=== PATIENT | male | born 1945 | race African-American/Black ===

== ENCOUNTER 2016-09-26 20:17 | Emergency (ER) | payer BC, MEDICARE ==
[2016-09-25] MEDS: HYDROCODONE/ACETAMINOPHEN 5-325 MG 6 TAB/DSPK PO PRN (23:11)
[2016-09-26] MEDS ORDERED: HYDROCODONE/ACETAMINOPHEN 5-325 MG TABLET PO ONE (20:51)
--- NOTE | 2016-09-26 20:52 | ER Document Report ---
ED Extremity Problem, Lower - General Stated Complaint: LEFT LEG PAIN Time seen by provider: 20:51 Notes: Patient is a 71-year-old male that comes emergency department for chief complaint of pain in his left lower leg with a small area of swelling. He states that symptoms started today. Patient is not sure that he has had any injury to the leg, he denies any recent travel or surgery, he states he has had superficial blood clots in his legs before but no deep venous thrombosis. He takes aspirin but is not on any blood thinners. Patient denies any other symptoms. TRAVEL OUTSIDE OF THE [place] IN LAST 30 DAYS: No - Related Data Allergies/Adverse Reactions: No Known Allergies Allergy (Verified 04/27/14 21:43) Past Medical History - General Information source: Patient - Social History Smoking Status: Never Smoker Frequency of alcohol use: None Drug Abuse: None Lives with: Family Family History: Reviewed & Not Pertinent - Past Medical History Cardiac Medical History: Reports: Hx Hypertension Denies: Hx Coronary Artery Disease, Hx Heart Attack Pulmonary Medical History: Denies: Hx Asthma, Hx Bronchitis, Hx COPD, Hx Pneumonia Neurological Medical History: Denies: Hx Cerebrovascular Accident, Hx Seizures Musculoskeltal Medical History: Denies Hx Arthritis Psychiatric Medical History: Denies: Hx Depression Surgical Hx: Negative - Immunizations Hx Diphtheria, Pertussis, Tetanus Vaccination: Yes Hx Pneumococcal Vaccination: 06/13/14 Review of Systems - Review of Systems Constitutional: No symptoms reported EENT: No symptoms reported Cardiovascular: See HPI Respiratory: No symptoms reported Gastrointestinal: No symptoms reported Genitourinary: No symptoms reported Male Genitourinary: No symptoms reported Musculoskeletal: See HPI Skin: No symptoms reported Hematologic/Lymphatic: No symptoms reported Neurological/Psychological: No symptoms reported Physical Exam - Vital signs Vitals: Temp Pulse Resp BP Pulse Ox 98.1 F 68 21 H 125/72 97 09/26/16 20:38 09/26/16 20:38 09/26/16 20:38 09/26/16 20:38 09/26/16 20:38 Interpretation: Normal - General General appearance: Appears well, Alert In distress: None - HEENT Head: Normocephalic, Atraumatic Eyes: Normal Conjunctiva: Normal Extraocular movements intact: Yes Eyelashes: Normal Pupils: PERRL Sinus: Normal Nasal: Normal Mouth/Lips: Normal Mucous membranes: Normal Pharynx: Normal Neck: Normal - Respiratory Respiratory status: No respiratory distress Chest status: Nontender Breath sounds: Normal. No: Decreased air movement, Wheezing Chest palpation: Normal - Cardiovascular Rhythm: Regular. No: Tachycardia Heart sounds: Normal auscultation, S1 appreciated, S2 appreciated Murmur: No - Abdominal Inspection: Normal Distension: No distension Bowel sounds: Normal Tenderness: Nontender. No: Tender Organomegaly: No organomegaly - Back Back: Normal, Nontender - Extremities General upper extremity: Normal inspection, Nontender, Normal color, Normal ROM , Normal temperature General lower extremity: Other - There is a small amount of edema in the left lower extremity, most noticeable anteriorly over the distal tibial area, no significant tenderness, no abnormal temperature, no erythema, normal dorsalis pedis and capillary refill, normal neurovascular exam, normal lower extremity exam otherwise - Neurological Neuro grossly intact: Yes Cognition: Normal Orientation: AAOx4 [place] Coma Scale Eye Opening: Spontaneous Nicole Coma Scale Verbal: Oriented Nicole Coma Scale Motor: Obeys Commands Nicole Coma Scale Total: 15 Speech: Normal Motor strength normal: LUE, RUE, LLE, RLE Sensory: Normal - Psychological Associated symptoms: Normal affect, Normal mood - Skin Skin Temperature: Warm Skin Moisture: Dry Skin Color: Normal Course - Re-evaluation Re-evalutation: Patient has minimal lower extremity edema in the left anterior tibial area, otherwise it is not noticeable, patient reporting pain initially, this resolved with medication. X-ray imaging unremarkable, Doppler unremarkable, suspect this is venous stasis. Patient has normal pulse, normal neurological examination. Patient already has compression stockings. Discussed workup, follow-up, return precautions, patient and state understanding and agreement. - Vital Signs Vital signs: Temp Pulse Resp BP Pulse Ox 98.3 F 65 20 139/83 H 98 09/26/16 23:00 09/26/16 23:00 09/26/16 23:00 09/26/16 23:00 09/26/16 23:00 Discharge - Discharge Clinical Impression: Left leg pain Condition: Stable Disposition: HOME, SELF-CARE Additional Instructions: Doppler ultrasound is negative for superficial or deep clots. X-ray is unremarkable. Small amount of swelling in your leg is most likely from venous insufficiency, wear your compression stocking and elevate your leg. Take the provided pain medication if needed. Follow-up with your primary care provider within the next 1-2 weeks. Return to the emergency department for any concerning or worsening symptoms. Referrals: SADIE MCCRAY MD [Primary Care Provider] - Follow up as needed
[2016-09-26 23:01] VITALS: BP 139/83
[2016-09-26] MEDS: HYDROCODONE/ACETAMINOPHEN 5-325 MG 6 TAB/DSPK PO PRN (23:11)
== END 2016-09-26 23:12 | disposition home or self-care (01) ==
LOC: ER 20:17
DX: M79.605 Pain in left leg (principal); I10 Essential (primary) hypertension
CPT/HCPCS: 99284; 93971; 73590; A9270 ×2

== ENCOUNTER 2016-12-05 13:39 | Emergency (ER) | payer MEDICARE, BC ==
[2016-12-05] MEDS ORDERED: NORMAL SALINE 1000 ML 1,000 ML IV ONE (14:56)
--- NOTE | 2016-12-05 15:18 | ER Document Report ---
ED Syncope and Near Syncope - General Mode of Arrival: Medic Information source: Patient TRAVEL OUTSIDE OF THE [place] IN LAST 30 DAYS: No - HPI Patient complains to provider of: Nearly fainting Context: Other - See above <CHIP FISHER - Last Filed: 12/05/16 17:17> <RUDDY ARZATE - Last Filed: 12/05/16 22:53> - General Chief Complaint: Near Syncope Stated Complaint: near syncope Time Seen by Provider: 12/05/16 14:51 Notes: Patient is a 71 year old male, with a past medical history including hypertension, who presents to the emergency department via EMS complaining of near syncope. Patient reports that he was leaving [facility] when he became very hot , nauseated, and felt like he was going to pass out. Patient reports he feels alright now. Patient states that the [facility] was warm and that he has not had anything to eat today. Patient denies chest pain, difficulty breathing, and abdominal pain. PCP: Dr. Mccray (CHIP FISHER) - Related Data Allergies/Adverse Reactions: No Known Allergies Allergy (Verified 04/27/14 21:43) Past Medical History - General Information source: Patient - Social History Smoking Status: Unknown if Ever Smoked Family History: Reviewed & Not Pertinent - Past Medical History Cardiac Medical History: Reports: Hx Hypertension - Immunizations Hx Diphtheria, Pertussis, Tetanus Vaccination: Yes Hx Pneumococcal Vaccination: 06/13/14 <CHIP FISHER - Last Filed: 12/05/16 17:17> Review of Systems - Review of Systems Constitutional: See HPI, Other - hot EENT: No symptoms reported Cardiovascular: See HPI, Syncope - near. denies: Chest pain Respiratory: denies: Stridor - difficulty breathing Gastrointestinal: See HPI, Nausea. denies: Abdominal pain Genitourinary: No symptoms reported Male Genitourinary: No symptoms reported Musculoskeletal: No symptoms reported Skin: No symptoms reported Hematologic/Lymphatic: No symptoms reported Neurological/Psychological: No symptoms reported -: Yes All other systems reviewed and negative <CHIP FISHER - Last Filed: 12/05/16 17:17> Physical Exam - Vital signs Interpretation: Normal - General General appearance: Appears well, Alert - HEENT Head: Normocephalic, Atraumatic Eyes: Normal Pupils: PERRL Mucous membranes: Dry - Respiratory Respiratory status: No respiratory distress Chest status: Nontender Breath sounds: Normal Chest palpation: Normal - Cardiovascular Rhythm: Regular Heart sounds: Normal auscultation Murmur: No - Abdominal Inspection: Normal Distension: No distension Bowel sounds: Normal Tenderness: Nontender Organomegaly: No organomegaly - Back Back: Normal, Nontender - Extremities General upper extremity: Normal inspection, Nontender, Normal color, Normal ROM , Normal temperature General lower extremity: Normal inspection, Nontender, Normal color, Normal ROM , Normal temperature, Normal weight bearing. No: Mamta's sign - Neurological Neuro grossly intact: Yes Cognition: Normal Orientation: AAOx4 Nicole Coma Scale Eye Opening: Spontaneous Nicole Coma Scale Verbal: Oriented [place] Coma Scale Motor: Obeys Commands Nicole Coma Scale Total: 15 Speech: Normal Motor strength normal: LUE, RUE, LLE, RLE Sensory: Normal - Psychological Associated symptoms: Normal affect, Normal mood - Skin Skin Temperature: Warm Skin Moisture: Dry Skin Color: Normal <RUDDY ARZATE - Last Filed: 12/05/16 22:53> - Vital signs Vitals: Resp Pulse Ox 14 94 12/05/16 15:52 12/05/16 15:52 Course - Laboratory Result Diagrams: 12/05/16 16:02 12/05/16 16:02 <CHIP FISHER - Last Filed: 12/05/16 17:17> - Laboratory Result Diagrams: 12/05/16 16:02 12/05/16 16:02 - Diagnostic Test Radiology reviewed: Reports reviewed - EKG Interpretation by Me EKG shows normal: Sinus rhythm When compared to previous EKG there are: No significant change <RUDDY ARZATE - Last Filed: 12/05/16 22:53> - Re-evaluation Re-evalutation: 12/05/16 Patient presents after an episode of syncope at [facility]. Patient had been standing for a while. States that he has not eaten or drank anything today. Patient is a little hypoglycemic on blood work. Patient given fluids and something to eat and feels much better. Troponin negative. No acute changes on EKG. Similar to old. Patient will be discharged home is to follow-up with his doctor. He is not orthostatic. Agrees with plan. Return if any worsening or concerning symptoms. (RUDDY ARZATE) - Vital Signs Vital signs: Temp Pulse Resp BP Pulse Ox 97.6 F 62 14 119/73 98 12/05/16 18:03 12/05/16 17:44 12/05/16 18:01 12/05/16 18:01 12/05/16 18:01 - Laboratory Laboratory results interpreted by me: 12/05/16 12/05/16 12/05/16 16:02 16:02 16:02 RBC 4.14 L Hgb 12.3 L Hct 37.1 L RDW 15.4 H VBG pH 7.29 L Sodium 146.4 H BUN 27 H Creatinine 1.53 H Est GFR ( Amer) 55 L Est GFR (Non-Af Amer) 45 L Calcium 11.2 H Total Bilirubin 1.4 H Urine Protein Urine Blood 12/05/16 16:02 RBC Hgb Hct RDW VBG pH Sodium BUN Creatinine Est GFR ( Amer) Est GFR (Non-Af Amer) Calcium Total Bilirubin Urine Protein 30 H Urine Blood SMALL H Discharge <CHIP FISHER - Last Filed: 12/05/16 17:17> <RUDDY ARZATE - Last Filed: 12/05/16 22:53> - Discharge Clinical Impression: Near syncope, Hypoglycemia, Dehydration Condition: Stable Disposition: HOME, SELF-CARE Instructions: Dehydration ([facility]), Near Syncopal Episode ([facility]), Hypoglycemia ([facility] ) Referrals: SADIE MCCRAY MD [Primary Care Provider] - 12/07/16 Scribe Attestation: 12/05/16 22:53 I personally performed the services described in the documentation, reviewed and edited the documentation which was dictated to the scribe in my presence, and it accurately records my words and actions. (RUDDY ARZATE) Scribe Documentation - Scribe Written by Carter:: carter Garcia, 12/05/16, 2975 acting as scribe for :: Harry <CHIP FISHER - Last Filed: 12/05/16 17:17>
[2016-12-05 16:32] LABS: ABSOLUTE BASOPHILS # (AUTO) 0.1 10^3/uL (0.0-0.2); ABSOLUTE EOSINOPHILS # (AUTO) 0.1 10^3/uL (0.0-0.6); ABSOLUTE LYMPHOCYTES (AUTO) 1.4 10^3/uL (0.5-4.7); ABSOLUTE MONOCYTES (AUTO) 0.5 10^3/uL (0.1-1.4); ABSOLUTE NEUT (AUTO) 4.9 10^3/uL (1.7-8.2); BASOPHILS % (AUTO) 0.8 % (0-2); EOSINOPHILS % (AUTO) 1.2 % (0-6); HEMATOCRIT 37.1 % (37.9-51.0); HEMOGLOBIN 12.3 g/dL (13.5-17.0); HGB HCT DIFFERENCE -0.2; LYMPHOCYTES % (AUTO) 20.7 % (13-45); MEAN CORPUSCULAR HEMOGLOBIN 29.8 pg (27.0-33.4); MEAN CORPUSCULAR HGB CONC 33.3 g/dL (32.0-36.0); MEAN CORPUSCULAR VOLUME 90 fl (80-97); MONOCYTES % (AUTO) 7.8 % (3-13); RED BLOOD COUNT 4.14 10^6/uL (4.35-5.55); RED CELL DISTRIBUTION WIDTH 15.4 % (11.5-14.0); SEGMENTED NEUTROPHILS % (AUTO) 69.5 % (42-78)
[2016-12-05 16:33] LABS: VENOUS BLOOD BASE EXCESS -2.1 mmol/L; VENOUS BLOOD HCO3 25.3 mmol/L (20-32); VENOUS BLOOD PCO2 54.4 mmHg (35-63); VENOUS BLOOD PH 7.29 (7.30-7.42)
[2016-12-05 16:39] LABS: PROTHROMBIN TIME 13.7 SEC (11.4-15.4)
[2016-12-05 16:49] LABS: ALANINE AMINOTRANSFERASE 33 U/L (21-72); ALBUMIN 4.1 g/dL (3.5-5.0); ALKALINE PHOSPHATASE 108 U/L (38-126); ANION GAP 15 (5-19); APPEARANCE,URINE CLEAR; ASPARTATE AMINO TRANSFERASE 25 U/L (17-59); BILIRUBIN,DIRECT 0.3 mg/dL (0.0-0.4); BILIRUBIN,TOTAL 1.4 mg/dL (0.2-1.3); BILIRUBIN,URINE NEGATIVE (NEGATIVE); BLOOD UREA NITROGEN 27 mg/dL (7-20); CALCIUM 11.2 mg/dL (8.4-10.2); CARBON DIOXIDE 25 mmol/L (22-30); CHLORIDE 106 mmol/L (98-107); CREATINE KINASE 160 U/L (55-170); CREATININE RESULT 1.53 mg/dL (0.52-1.25); GLUCOSE 94 mg/dL (75-110); GLUCOSE, URINE NEGATIVE (NEGATIVE); KETONES,URINE NEGATIVE (NEGATIVE); LEUKOCYTE ESTERASE,URINE NEGATIVE (NEGATIVE); NITRITE,URINE NEGATIVE (NEGATIVE); POTASSIUM 4.1 mmol/L (3.6-5.0); PROTEIN,URINE 30 mg/dL (NEGATIVE); SODIUM 146.4 mmol/L (137-145); TOTAL PROTEIN 7.1 g/dL (6.3-8.2); URINE SPECIFIC GRAVITY 1.012; UROBILINOGEN,URINE NEGATIVE mg/dL (<2.0)
[2016-12-05 16:58] LABS: CREATINE KINASE MB 0.76 ng/mL (<4.55)
[2016-12-05 16:59] LABS: TROPONIN I < 0.012 ng/mL
--- NOTE | 2016-12-05 17:14 | EKG REPORT ---
SEVERITY:- ABNORMAL ECG - SINUS RHYTHM RBBB AND LAFB : Confirmed by: Serafin Araujo MD 05-Dec-2016 17:13:55
[2016-12-05 18:04] VITALS: BP 119/73
== END 2016-12-05 18:09 | disposition home or self-care (01) ==
LOC: ER 13:39
DX: R55 Syncope and collapse (principal); E86.0 Dehydration; E16.2 Hypoglycemia, unspecified; R11.0 Nausea; I10 Essential (primary) hypertension
CPT/HCPCS: 93005; 99285; 96360; 36415; 87040; 87086; 82553; 82962; 82550; 85025; 85610; 80053; 81001; 84484; 82803; 83605; 71010; 93010; J7030

== ENCOUNTER → 2017-03-30 | Outpatient (CLI) | payer MEDICARE, BC ==
--- NOTE | 2017-03-30 23:01 | RADIOLOGY REPORT (SQ) ---
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 Images reviewed with lung, soft tissue and bone windows. Reconstructed coronal and sagittal MPR images reviewed. All images st ored on PACS. All CT scanners at this facility use dose modulation, iterative reconstruction, and/or weight based d osing when appropriate to reduce radiation dose to as low as reasonably achievable (ALARA). [facility]: Dose Right [facility]: CareDose [facility]: Dose Right [facility]: Teradose 4D [facility]: Smart [employer] RADIATION DOSE: Up-to-date CT equipment and radiation dose reduction techniques were employed. CTDIv ol: 17.5 mGy. DLP: 685 mGy-cm. mGy. LIMITATIONS: No technical limitations. FINDINGS: LUNGS AND PLEURA: Postsurgical changes in the right lung. Previously noted pulmonary nodu le no longer identified. No additional nodules or masses. HILAR AND MEDIASTINAL STRUCTURES: Surgical changes in the right hilum and mediastinum. No definite e vidence for recurrence. HEART AND VASCULAR STRUCTURES: No aneurysm. No pericardial effusion. UPPER ABDOMEN: Renal cysts. THYROID AND OTHER SOFT TISSUES: No masses. No adenopathy. BONES: No significant finding. HARDWARE: None in the chest. OTHER: No other significant findings. IMPRESSION: Posttreatment changes in the right lung with surgical changes. No evidence for metastat ic lesions. TECHNICAL DOCUMENTATION: JOB ID: [id number] Quality ID # [id number]: Final reports with documentation of one or more dose reduction techniques (e.g., Au tomated exposure control, adjustment of the mA and/or kV according to patient size, use of iterative reconstruction technique) 2010 [employer]- All Rights Reserved
== END ==
LOC: RAD 18:43
PROVIDERS: ATTEND Internal Medicine
DX: C34.11 Malignant neoplasm of upper lobe, right bronchus or lung (principal)
CPT/HCPCS: 71250

== ENCOUNTER → 2017-07-01 | Outpatient (CLI) | payer MEDICARE, BC ==
--- NOTE | 2017-07-01 18:34 | RADIOLOGY REPORT (SQ) ---
EXAM DESCRIPTION: CT CHEST WITHOUT COMPLETED DATE/TIME: 07/01/2017 6:15 pm REASON FOR STUDY: MALIGNANT NEOPLASM OF UPPER LOBE, RIGHT BRONCHUS OR LUNG C34.11 MALIGNANT NEOPLAS M OF UPPER LOBE, RIGHT BRONCHUS OR L COMPARISON: 03/30/2017 TECHNIQUE: CT scan performed of the chest without intravenous contrast. Images reviewed with lung, soft tissue and bone windows. Reconstructed coronal and sagittal MPR images reviewed. All images st ored on PACS. All CT scanners at this facility use dose modulation, iterative reconstruction, and/or weight based d osing when appropriate to reduce radiation dose to as low as reasonably achievable (ALARA). [facility]: Dose Right [facility]: CareDose [facility]: Dose Right [facility]: Teradose 4D [facility]: [employer] RADIATION DOSE: Up-to-date CT equipment and radiation dose reduction techniques were employed. CTDIv ol: 19.1 mGy. DLP: 748 mGy-cm. mGy. LIMITATIONS: No technical limitations. FINDINGS: LUNGS AND PLEURA: Post surgical changes in the right lung. No pulmonary masses or infiltr ates. HILAR AND MEDIASTINAL STRUCTURES: Surgical changes in the right hilum. HEART AND VASCULAR STRUCTURES: No aneurysm. No pericardial effusion. UPPER ABDOMEN: There are bilateral renal cysts including a 95 mm cyst on the upper pole of the right kidney. THYROID AND OTHER SOFT TISSUES: No masses. No adenopathy. BONES: No osseous lesions are present. HARDWARE: None in the chest. OTHER: No other significant findings. IMPRESSION: Stable surgical changes with no evidence of pulmonary or osseous metastases. TECHNICAL DOCUMENTATION: JOB ID: [id number] Quality ID # [id number]: Final reports with documentation of one or more dose reduction techniques (e.g., Au tomated exposure control, adjustment of the mA and/or kV according to patient size, use of iterative reconstruction technique) 2010 [employer]- All Rights Reserved
== END ==
LOC: RAD 17:58
PROVIDERS: ATTEND Internal Medicine Hematology & Oncology
DX: C34.11 Malignant neoplasm of upper lobe, right bronchus or lung (principal)
CPT/HCPCS: 71250

== ENCOUNTER → 2017-11-15 | Outpatient (CLI) | payer MEDICARE, BC ==
--- NOTE | 2017-11-15 22:36 | RADIOLOGY REPORT (SQ) ---
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 Images reviewed with lung, soft tissue and bone windows. Reconstructed coronal and sagittal MPR images reviewed. All images st ored on PACS. All CT scanners at this facility use dose modulation, iterative reconstruction, and/or weight based d osing when appropriate to reduce radiation dose to as low as reasonably achievable (ALARA). [facility]: Dose Right [facility]: CareDose [facility]: Dose Right [facility]: Teradose 4D [facility]: [employer] RADIATION DOSE: CT Rad equipment meets quality standard of care and radiation dose reduction techniq ues were employed. CTDIvol: 18.1 mGy. DLP: 707 mGy-cm. mGy. LIMITATIONS: No technical limitations. FINDINGS: LUNGS AND PLEURA: Surgical changes are present in the right upper lobe. There are new pul monary nodules in the right lung not present on the earlier study. There is an 8 mm nodule in the ri ght lung on image 21. A similar size nodule is seen just anterior to the fissure on the right on suzette ge 23. On image 26 multiple smaller pulmonary nodules are present. HILAR AND MEDIASTINAL STRUCTURES: No identified masses or abnormal nodes. No obvious aneurysm. HEART AND VASCULAR STRUCTURES: No aneurysm. No pericardial effusion. UPPER ABDOMEN: Faintly defined gallstones are suggested. A large right renal cyst is present. THYROID AND OTHER SOFT TISSUES: No masses. No adenopathy. BONES: No significant finding. HARDWARE: None in the chest. OTHER: No other significant findings. IMPRESSION: There are new pulmonary nodules in the right lung concerning for metastatic disease. Ot her findings as described. TECHNICAL DOCUMENTATION: JOB ID: [id number] Quality ID # [id number]: Final reports with documentation of one or more dose reduction techniques (e.g., Au tomated exposure control, adjustment of the mA and/or kV according to patient size, use of iterative reconstruction technique) 2010 [employer]- All Rights Reserved Reading location - IP/workstation name: [email or web address]
== END ==
LOC: RAD 19:00
PROVIDERS: ATTEND Internal Medicine
DX: C34.11 Malignant neoplasm of upper lobe, right bronchus or lung (principal)
CPT/HCPCS: 71250

== ENCOUNTER → 2017-11-23 | Outpatient (CLI) | payer MEDICARE, BC ==
--- NOTE | 2017-11-24 09:41 | RADIOLOGY REPORT (SQ) ---
EXAM DESCRIPTION: PET CT SKULL/THIGH COMPLETED DATE/TIME: 11/23/2017 6:51 pm REASON FOR STUDY: LUNG CA C34.11 MALIGNANT NEOPLASM OF UPPER LOBE, RIGHT BRONCHUS OR L COMPARISON: PET-CT 06/28/2016 CT chest 03/30/2017, 07/01/2017, 11/25/2017 RADIONUCLIDE AND DOSE: 12.6 mCi F18 FDG The route of agent administration: Intravenous FASTING BLOOD SUGAR: 87 mg/dl CONTRAST TYPE AND DOSE: No CT contrast given. TECHNIQUE: Blood glucose level was verified. Above dose of FDG was injected intravenously. 2-D seg mented attenuation correction images were obtained from the base of the skull to the midthighs. Nonc ontrast CT images were obtained for attenuation correction and fusion with emission images. CT image s were performed without oral or intravenous contrast and are not sensitive for parenchymal lesions. A series of overlapping emission PET images were obtained. Images reviewed and manipulated at [facility] work station by the radiologist. Images stored on PACS. LIMITATIONS: None. FINDINGS: HEAD AND NECK: No areas of abnormal metabolic activity in the soft tissues of the head and neck. CHEST: Patient is post right upper lobectomy. Along the right hilar staple line, a bandlike area of soft tissue is present 3.3 x 1.4 cm in size with SUV of 4. This is worrisome for recurrence. There are multiple bilateral pulmonary nodules, stable compared to 11/15/[address] However, the e xhibit low level activity on today's PET study worrisome for metastatic nodules. Shot Polisher And Inspector lesi ons are as follows: 8 mm right middle lobe image 87 SUV 1.8 8 mm right lower lobe image 96 SUV 2.1 ABDOMEN AND PELVIS: No areas of abnormal metabolic activity in the abdomen or pelvis. Expected physi ologic activity is present in the genitourinary system and bowel. PROXIMAL LOWER EXTREMITIES: No areas of abnormal metabolic activity in the soft tissues of the lower extremities. BONES: No abnormal metabolic activity in the visualized skeleton. ADDITIONAL CT FINDINGS: Small hiatal hernia. Bilateral renal cortical cysts. Degenerative disc schwartz ges in the lumbar spine, penile prosthesis. Mucous membrane thickening right maxillary sinus OTHER: Liver background 2.4 SUV. Blood pool background 1.8 SUV IMPRESSION: There is increased metabolic activity along the right hilum, posterior edge of the upper lobectomy staple line with corresponding soft tissue densities 3.3 x 1.4 cm worrisome for tumor recu rrence. Although the multiple pulmonary nodules are stable compared to 11/15/[address], these nodules have discernible metabolic activity despite being less than 1 cm in size, which is suspicious for metastat ic disease TECHNICAL DOCUMENTATION: JOB ID: [id number] [employer]- All Rights Reserved Reading location - IP/workstation name: [email or web address]
== END ==
LOC: RAD 15:46
PROVIDERS: ATTEND Internal Medicine
DX: C34.11 Malignant neoplasm of upper lobe, right bronchus or lung (principal)
CPT/HCPCS: 78815; A9552

== ENCOUNTER → 2018-02-16 | Outpatient (CLI) | payer MEDICARE, BC ==
--- NOTE | 2018-02-16 13:56 | RADIOLOGY REPORT (SQ) ---
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 [address] chest study from 11/15/2017 and 07/01/2017. CONTRAST TYPE AND DOSE: contrast/concentration: Isovue 300.00 mg/ml; Total Contrast Delivered: 75.0 ml; Total Saline Delivered: 72.0 ml RENAL FUNCTION: Creatinine 1.7 TECHNIQUE: CT scan of the chest performed using helical scanning technique with dynamic intravenous contrast injection. Images reviewed with lung, soft tissue and bone windows. Reconstructed coronal a nd sagittal MPR images reviewed. All images stored on PACS. CT scan of the abdomen and pelvis performed with intravenous and with oral contrastusing helical scan eran technique with dynamic intravenous contrast injection. Images reviewed with lung, soft tissue a nd bone windows. Reconstructed coronal and sagittal MPR images reviewed. Delayed images for evaluat ion of the urinary system also acquired and evaluated. All images stored on PACS. All CT scanners at this facility use dose modulation, iterative reconstruction, and/or weight based d osing when appropriate to reduce radiation dose to as low as reasonably achievable (ALARA). [facility]: Dose Right [facility]: CareDose [facility]: Dose Right [facility]: Teradose 4D [facility]: [employer] RADIATION DOSE: CT Rad equipment meets quality standard of care and radiation dose reduction techniq ues were employed. CTDIvol: 12.2 - 12.9 mGy. DLP: 1904 mGy-cm. . LIMITATIONS: None. FINDINGS: CHEST: LUNGS AND PLEURA: Numerous bilateral pulmonary nodules are generally progressive in size. Largest le ft lesion is in the lower lobe and measures up to 1.4 cm transverse dimension (image 85). Largest di screte right lung nodule is in the right lower lobe and measures up to 1.4 cm transverse dimension (i mage 53). More extensive soft tissue along the suture line in the right upper lung field tracks back to the hilum. This soft tissue is enlarging and greater than 5 cm maximal AP dimension now. HILAR AND MEDIASTINAL STRUCTURES: Progressing right hilar and adjacent abnormal tissue as above. No left hilar adenopathy. No enlarged mediastinal nodes otherwise demonstrated. HEART AND VASCULAR STRUCTURES: No aneurysm or dissection. No central pulmonary emboli. No pericardi al effusion. HARDWARE: None. THYROID AND OTHER SOFT TISSUES: No masses. No adenopathy. BONES: No significant finding. OTHER: No other significant finding. ABDOMEN AND PELVIS: LIVER: Normal size. No masses. No dilated ducts. SPLEEN: Normal size. No focal lesions. PANCREAS: No masses. No significant calcifications. No adjacent inflammation or peripancreatic fluid collections. Pancreatic duct not dilated. GALLBLADDER: No identified stones by CT criteria. No inflammatory changes to suggest cholecystitis. ADRENAL GLANDS: No significant masses or asymmetry. RIGHT KIDNEY AND URETER: Numerous cysts. No gross solid mass, stones or obstruction. LEFT KIDNEY AND URETER: Numerous cysts. No solid mass, stones or obstruction. AORTA AND VESSELS: Atherosclerotic aorta without aneurysm. Patent renal and mesenteric arteries. No venous clot. RETROPERITONEUM: No retroperitoneal adenopathy, hemorrhage or masses. BOWEL AND PERITONEAL CAVITY: No masses or inflammatory changes. No free fluid or peritoneal masses. APPENDIX: Normal. ABDOMINAL WALL: No masses. No hernias. PELVIS: Prostate enlargement. Bladder unremarkable. No ascites or adenopathy. BONES: No significant or acute findings. OTHER: No other significant finding. IMPRESSION: 1. Progressive pulmonary disease. This includes confluent right upper lobe and hilar a bnormal soft tissue and numerous progressing bilateral pulmonary nodules. 2. Stable abdomen pelvis, no metastatic changes identified. Includes numerous renal cysts bilaterally as well as heavy athero sclerosis. TECHNICAL DOCUMENTATION: JOB ID: [id number] Quality ID # [id number]: Final reports with documentation of one or more dose reduction techniques (e.g., Au tomated exposure control, adjustment of the mA and/or kV according to patient size, use of iterative reconstruction technique) 2010 [employer]- All Rights Reserved Reading location - IP/workstation name: [email or web address]
== END ==
LOC: RAD 10:43
PROVIDERS: ATTEND Internal Medicine Hematology & Oncology
DX: C34.11 Malignant neoplasm of upper lobe, right bronchus or lung (principal)
CPT/HCPCS: 71260; 74177

== ENCOUNTER 2018-02-22 21:53 | Emergency (ER) | payer MEDICARE, BC ==
--- NOTE | 2018-02-23 00:13 | ER Document Report ---
HPI - HPI Patient complains to provider of: left leg/ankle pain Pain Level: 4 Context: Patient is a 72-year-old male comes emergency department for chief complaint of pain to his left ankle and left leg. He states the pain shot up from his left ankle into his left leg but not quite to his knee. He reports symptoms are bad and he felt like he could not walk on the leg although now they have essentially resolved. He denies injury, swelling, redness, fever. He states he got the same symptoms yesterday. He does have a history of lung cancer, he is going to be starting treatment with oncology soon, he does not have history of blood clots. - CONSTITUTIONAL Constitutional: DENIES: Fever, Chills - EENT EENT: DENIES: Sore Throat, Ear Pain, Eye problems - NEURO Neurology: DENIES: Headache, Weakness, Vision blurred, Dizzinesss / Vertigo - CARDIOVASCULAR Cardiovascular: DENIES: Chest pain - RESPIRATORY Respiratory: DENIES: Trouble Breathing, Coughing - GASTROINTESTINAL Gastrointestinal: DENIES: Abdominal Pain, Black / Bloody Stools - URINARY Urinary: DENIES: Dysuria, Urgency, Frequency - MUSCULOSKELETAL Musculoskeletal: REPORTS: Extremity pain - L ankle Past Medical History - General Information source: Patient - Social History Smoking Status: Never Smoker Frequency of alcohol use: None Drug Abuse: None Lives with: Family Family History: Reviewed & Not Pertinent Patient has suicidal ideation: No Patient has homicidal ideation: No - Past Medical History Cardiac Medical History: Reports: Hx Hypertension Denies: Hx Coronary Artery Disease, Hx Heart Attack Pulmonary Medical History: Denies: Hx Asthma, Hx Bronchitis, Hx COPD, Hx Pneumonia Neurological Medical History: Denies: Hx Cerebrovascular Accident, Hx Seizures Renal/ Medical History: Denies: Hx Peritoneal Dialysis Malignancy Medical History: Reports Hx Lung Cancer Musculoskeltal Medical History: Denies Hx Arthritis Psychiatric Medical History: Denies: Hx Depression - Immunizations Hx Diphtheria, Pertussis, Tetanus Vaccination: Yes Hx Pneumococcal Vaccination: 06/13/14 Vertical Provider Document - CONSTITUTIONAL General Appearance: WD/WN, No Apparent Distress - INFECTION CONTROL TRAVEL OUTSIDE OF THE [place] IN LAST 30 DAYS: No - HEENT HEENT: Atraumatic, Normocephalic - NECK Neck: Normal Inspection - RESPIRATORY Respiratory: Breath Sounds Normal, No Respiratory Distress - CARDIOVASCULAR Cardiovascular: Regular Rate, Regular Rhythm - GI/ABDOMEN Gastrointestinal: Abdomen Soft, Abdomen Non-Tender - BACK Back: Normal Inspection - MUSCULOSKELETAL/EXTREMETIES Musculoskeletal/Extremeties: MAEW, FROM, Non-Tender. negative: Tender - NEURO Level of Consciousness: Awake, Alert, Appropriate - DERM Integumentary: Warm, Dry, No Rash Course - Re-evaluation Re-evalutation: Patient is asymptomatic except he has some tenderness when he walks he reports. He was able to ambulate for me without any difficulty. X-rays unremarkable with no bony metastases noted, no swelling, no erythema, no fever, does not appear to be infection, examination is not suggestive of a blood clot even though he does have lung cancer. I discussed with patient possibly checking his electrolytes and additional workup options, this was declined at this time, he states he has a follow-up in a few days, he currently has no symptoms, he will follow-up with his provider and return if he worsens. - Vital Signs Vital signs: Temp Pulse Resp BP Pulse Ox 98.4 F 64 20 133/74 H 95 02/22/18 22:53 02/22/18 22:53 02/22/18 22:53 02/22/18 22:53 02/22/18 22:53 Discharge - Discharge Clinical Impression: Left leg pain Condition: Stable Disposition: HOME, SELF-CARE Additional Instructions: Evaluation does not suggest infection, blood clot, x-rays are normal at this time. Suspect this is muscular. You have been provided with pain medication to take at the pain is severe, otherwise take Tylenol as needed. Follow-up with your provider for additional evaluation including laboratory studies. Return immediately if you worsen including swelling, developing redness, fever, increased pain, or any other concerning symptoms. Referrals: MANNY WILSON MD [ACTIVE STAFF] - Follow up in 3-5 days
--- NOTE | 2018-02-23 00:56 | RADIOLOGY REPORT (SQ) ---
EXAM DESCRIPTION: XR ANKLE 2 VIEWS COMPLETED DATE/TME: 02/23/2018 00:11 CLINICAL HISTORY: 72 years, Male, pain, ? injury, hx cancer COMPARISON: None. FINDINGS: 3 views of the left ankle. No acute fracture or dislocation. Normal osseous mineralization. Base of fifth metatarsal is intact. Plantar calcaneal spur. Soft tissue edema. No lytic osseous lesions. IMPRESSION: No acute fracture or dislocation. 2010 [employer]- All Rights Reserved
--- NOTE | 2018-02-23 00:57 | RADIOLOGY REPORT (SQ) ---
EXAM DESCRIPTION: CLINICAL HISTORY: 72 years Male pain, ? Injury, hx cancer COMPARISON: None. TECHNIQUE: LEFT tibia fibula, two views FINDINGS: No acute fractures or dislocations are identified. No osseous destructive lesions. The ankle is incompletely included. IMPRESSION: No acute fracture is identified.
[2018-02-23] MEDS ORDERED: HYDROCODONE/ACETAMINOPHEN 5-325 MG (6 TAB/ER DISP) PO PRN (01:04)
[2018-02-23 01:37] VITALS: BP 137/77
== END 2018-02-23 01:38 | disposition home or self-care (01) ==
LOC: ER 21:53
DX: M79.605 Pain in left leg (principal); I10 Essential (primary) hypertension; Z85.118 Personal history of other malignant neoplasm of bronchus and lung
CPT/HCPCS: 99283; 73610; 73590; A9270

== ENCOUNTER 2018-04-16 20:58 | Inpatient (IN) | payer MEDICARE, BC ==
[2018-04-16] MEDS ORDERED: ONDANSETRON HCL INJ/PF 4 MG/2 ML SDV IV ONE (21:20)
[2018-04-16] MEDS ORDERED: NORMAL SALINE 1000 ML 500 ML IV ONE (21:20)
--- NOTE | 2018-04-16 21:22 | ER Document Report ---
ED General - General TRAVEL OUTSIDE OF THE [place] IN LAST 30 DAYS: No <DULCE KELLEY - Last Filed: 04/17/18 07:01> <HUSSEIN LLANES - Last Filed: 04/17/18 07:07> - General Chief Complaint: Abdominal Pain Stated Complaint: ABDOMINAL PAIN Time Seen by Provider: 04/16/18 21:10 Notes: Patient is a 72-year-old male who comes emergency department for chief complaint of fever, being diagnosed with a kidney infection, but today feeling worse, having a temperature at home of 103, and feeling short of breath with dyspnea on exertion, feeling pains in his upper abdomen. He has lung cancer, is undergoing chemotherapy with Dr. Chen, he was placed on Levaquin 2 days ago for suspected kidney infection. No history of kidney stones. Patient denies chest pain, he had some nausea and some mild upper abdominal pain earlier but he denies abdominal pain now. He denies vomiting, flank pain, headache. Only past medical history reported otherwise his high blood pressure and history of G-tube as a child. (DULCE KELLEY) - Related Data Allergies/Adverse Reactions: No Known Allergies Allergy (Verified 04/27/14 21:43) Past Medical History - General Information source: Patient, Relative - Social History Smoking Status: Former Smoker Frequency of alcohol use: None Drug Abuse: None Lives with: Family Family History: Reviewed & Not Pertinent - Past Medical History Cardiac Medical History: Reports: Hx Hypertension Denies: Hx Coronary Artery Disease, Hx Heart Attack Pulmonary Medical History: Denies: Hx Asthma, Hx Bronchitis, Hx COPD, Hx Pneumonia Neurological Medical History: Denies: Hx Cerebrovascular Accident, Hx Seizures Renal/ Medical History: Denies: Hx Peritoneal Dialysis Malignancy Medical History: Reports Hx Lung Cancer Musculoskeletal Medical History: Denies Hx Arthritis Psychiatric Medical History: Denies: Hx Depression - Immunizations Hx Diphtheria, Pertussis, Tetanus Vaccination: Yes Hx Pneumococcal Vaccination: 06/13/14 <DULCE KELLEY - Last Filed: 04/17/18 07:01> Review of Systems - Review of Systems Constitutional: See HPI EENT: No symptoms reported Cardiovascular: No symptoms reported Respiratory: See HPI Gastrointestinal: See HPI Genitourinary: No symptoms reported Male Genitourinary: No symptoms reported Musculoskeletal: No symptoms reported Skin: No symptoms reported Hematologic/Lymphatic: No symptoms reported Neurological/Psychological: No symptoms reported <DULCE KELLEY - Last Filed: 04/17/18 07:01> Physical Exam <DULCE KELLEY - Last Filed: 04/17/18 07:01> <HUSSEIN LLANES - Last Filed: 04/17/18 07:07> - Vital signs Vitals: Temp Pulse Resp BP Pulse Ox 99.4 F 135 H 14 109/60 94 04/16/18 21:03 04/16/18 21:03 04/16/18 21:03 04/16/18 21:03 04/16/18 21:03 - Notes Notes: GENERAL: Alert, interacts well. No acute distress. HEAD: Normocephalic, atraumatic. EYES: Pupils equal, round, and reactive to light. Extraocular movements intact. ENT: Oral mucosa moist, tongue midline. NECK: Full range of motion. Supple. Trachea midline. LUNGS: Clear to auscultation bilaterally, no wheezes, rales, or rhonchi. No respiratory distress. HEART: Regular rate and rhythm. No murmur ABDOMEN: Soft, non-tender. Non-distended. Bowel sounds present in all 4 quadrants. EXTREMITIES: Moves all 4 extremities spontaneously. No edema, normal radial and dorsalis pedis pulses bilaterally. No cyanosis. BACK: no cervical, thoracic, lumbar midline tenderness. No saddle anesthesia, normal distal neurovascular exam. NEUROLOGICAL: Alert and oriented x3. Normal speech. [cranial nerves II through XII grossly intact]. PSYCH: Normal affect, normal mood. SKIN: Warm, dry, normal turgor. No rashes or lesions noted. (DULCE KELLEY) Course - Laboratory Result Diagrams: 04/17/18 06:10 04/17/18 06:10 <DULCE KELLEY - Last Filed: 04/17/18 07:01> - Laboratory Result Diagrams: 04/17/18 06:10 04/17/18 06:10 <HUSSEIN LLANES - Last Filed: 04/17/18 07:07> - Re-evaluation Re-evalutation: 04/16/18 21:50 On my evaluation patient is denying any pain but he is tachypneic. I asked if he feels short of breath and he states he does especially when he exerts. However he has tachypnea at rest. No chest pain. Decreased breath sounds on the right although he does have a history of lung cancer, I can also hear scattered rhonchi throughout. Suggestive of pneumonia. Placed on oxygen initially at 3 L , had to increase to 4 L, still maintaining an average at 92 and dropping occasionally into the upper 80s with tachypnea. Ordering BiPAP. Patient is already taking Levaquin by mouth at home. Chest x-ray consistent with mass and secondary consolidation, reading is pending, ordering cefepime. Septic workup still pending. Patient is not hypotensive although he is tachycardic. 04/16/18 22:26 Workup still pending, unfortunately hemolyzed labs, 2 lines have been placed, antibiotics were started, patient's heart rate is improved and is now 113, on BiPAP he is much more comfortable, tachypnea has resolved, oxygen saturation is now 98%, blood pressure still stable with systolic blood pressure of 106, capillary refill is brisk, patient is alert and conversational at this time. CBC shows leukocytosis at 26,000, hemoglobin has dropped and is now 8.5, lactic acid is elevated at 3.3. Consistent with sepsis, he still is not hypotensive, brisk capillary refill. Rectal exam was checked, no blood noted, no occult blood on lab tests. Chest x-ray showing mass, suspected secondary pneumonia. Chemistry from resulted, shows acute renal failure, elevated bilirubin, low bicarbonate. Venous blood gas is unremarkable. Urinalysis still pending. Lipase is normal, LFTs are normal. Concern for possible obstructive pathology causing hyperbilirubinemia. Patient does have mild jaundice on exam. Will perform ultrasound. Discussed with Dr. Llanes. Ultrasound showing gallbladder stone, sludge, no pericholecystic fluid, unremarkable ducts, no evidence of obstruction. Will perform CAT scan. Unable to perform contrast. CAT scan with no significant change or difference from ultrasound. Discussed with Dr. Llanes. Called and spoke with Dr. Oliveira. She states patient bilirubin has been trending up with the labs, states that since there is no obstructive pathology evidenced this is most likely from his chemotherapy. Recommends admission for pneumonia/sepsis and will consult. I discussed this with patient and family in detail. Patient will be admitted, patient and family state agreement, will discuss with hospitalist. Discussed with Dr. Wylie, patient to be admitted to the [facility]. 04/17/18 07:01 Patient became hypotensive, MAP less than 65. Fever returned. Given 975 Tylenol , will place central line. Discussed with Dr. Llanes and Dr. Hurtado. Patient will be changed to ICU status. (DULCE KELLEY) 04/17/18 07:06 Patient requires central line. Central line was placed by Dulce Kelley under my supervision. Strong display 6 patient is hypotension. Currently his hypotension is responding to IV fluids but he may eventually require pressor therapy if he has recurrence of hypotension despite fluid boluses. (HUSSEIN LLANES) - Vital Signs Vital signs: Temp Pulse Resp BP Pulse Ox 101.1 F H 135 H 22 H 98/56 L 96 04/17/18 05:25 04/16/18 21:03 04/17/18 04:30 04/17/18 06:14 04/17/18 04:30 - Laboratory Laboratory results interpreted by me: 04/16/18 04/16/18 04/16/18 21:50 22:20 22:23 WBC 26.3 H RBC 3.06 L Hgb 8.5 L Hct 26.3 L RDW 19.8 H Plt Count 102 L Seg Neuts % (Manual) 83 H Lymphocytes % (Manual) 5 L Abs Neuts (Manual) 22.6 H Abs Monocytes (Manual) 2.1 H Abs Basophils (Manual) 0.3 H PT 18.9 H Potassium Carbon Dioxide BUN Creatinine Est GFR ( Amer) Est GFR (Non-Af Amer) Lactic Acid 3.3 H Total Bilirubin Direct Bilirubin AST Alkaline Phosphatase Total Protein Albumin Urine Protein Urine Blood Urine Bilirubin Urine Urobilinogen 04/16/18 04/17/18 04/17/18 23:30 01:33 02:35 WBC RBC Hgb Hct RDW Plt Count Seg Neuts % (Manual) Lymphocytes % (Manual) Abs Neuts (Manual) Abs Monocytes (Manual) Abs Basophils (Manual) PT Potassium 5.4 H Carbon Dioxide 17 L BUN 57 H Creatinine 3.29 H Est GFR ( Amer) 23 L Est GFR (Non-Af Amer) 19 L Lactic Acid 2.5 H Total Bilirubin 7.1 H Direct Bilirubin 5.9 H AST 69 H Alkaline Phosphatase 191 H Total Protein 6.2 L Albumin 2.5 L Urine Protein 30 H Urine Blood SMALL H Urine Bilirubin SMALL H Urine Urobilinogen 4.0 H Procedures - Central Line right IJ Time completed: 07:00 Consent obtained: Yes - verbal Central line pre-insertion: Sterile PPE donned, Sterile drapes applied Central line lumen type: Triple Anesthetic type: 1% Lidocaine mL's of anesthesia: 5 Ultrasound guided: Yes CM at insertion site: 16 Line secured with sutures: Yes Central line post-insertion: Blood return from lumens, Biopatch applied, Sutured , Sterile dressing applied, Position confirmed w/ CXR Number of attempts: 1 Complications: No <DULCE KELLEY - Last Filed: 04/17/18 07:01> <HUSSEIN LLANES - Last Filed: 04/17/18 07:07> - Central Line right IJ Notes: Dr. Llanes at bedside during procedure (DULCE KELLEY) Critical Care Note - Critical Care Note Total time excluding time spent on procedures (mins): 60 - septic shock, pneumonia, hypoxia <DULCE KELLEY - Last Filed: 04/17/18 07:01> <HUSSEIN LLANES - Last Filed: 04/17/18 07:07> - Critical Care Note Comments: Please allow 60 minutes of critical care time excluding any procedures for evaluation and treatment of patient with pneumonia, acute renal failure, septic shock. Multiple re-evaluations, interventions including BiPAP, antibiotics, IV fluids, antipyretics. Consultation with specialist, admission to the ICU. ( DULCE KELLEY) Discharge - Discharge Admitting Provider: [facility] Unit Admitted: ICU <DULCE KELLEY - Last Filed: 04/17/18 07:01> <HUSSEIN LLANES - Last Filed: 04/17/18 07:07> - Discharge Clinical Impression: Elevated bilirubin Pneumonia Qualifiers: Pneumonia type: due to unspecified organism Laterality: right Lung location: unspecified part of lung Qualified Code(s): J18.9 - Pneumonia, unspecified organism Sepsis Qualifiers: Sepsis type: sepsis due to unspecified organism Qualified Code(s): A41.9 - Sepsis, unspecified organism Lung cancer Qualifiers: Laterality: right Lung location: unspecified part of lung Qualified Code(s): C34.91 - Malignant neoplasm of unspecified part of right bronchus or lung Acute renal failure Qualifiers: Acute renal failure type: unspecified Qualified Code(s): N17.9 - Acute kidney failure, unspecified Hypotension Qualifiers: Hypotension type: unspecified hypotension type Qualified Code(s): I95.9 - Hypotension, unspecified Condition: Serious Disposition: ADMITTED INPATIENT
--- NOTE | 2018-04-16 21:53 | RADIOLOGY REPORT (SQ) ---
EXAM DESCRIPTION: CHEST SINGLE VIEW COMPLETED DATE/TIME: 04/16/2018 9:35 pm REASON FOR STUDY: shortness of breath, fevers COMPARISON: CT chest 02/16/2018 EXAM PARAMETERS: NUMBER OF VIEWS: One view. TECHNIQUE: Single frontal radiographic view of the chest acquired. RADIATION DOSE: NA LIMITATIONS: None. FINDINGS: LUNGS AND PLEURA: There is now dense consolidation in the right middle and lower lobe worr isome for postobstructive pneumonia. Patient has right hilar tumor on prior CT chest 02/16/2018. Old wedge resection jimbo in the medial aspect right upper lobe with adjacent recurrent soft tissue tumor. This is similar compared to CT exam 02/16/2018. Left lung well expanded and clear. No right or left pleural effusions or pneumothorax. MEDIASTINUM AND HILAR STRUCTURES: Right hilar fullness from tumor. HEART AND VASCULAR STRUCTURES: Heart normal in size. Normal vasculature. BONES: No acute findings. HARDWARE: None in the chest. OTHER: No other significant finding. IMPRESSION: Probable progression of disease in the right hilum with postobstructive middle lobe and lower lobe consolidation TECHNICAL DOCUMENTATION: JOB ID: [id number] [employer]- All Rights Reserved Reading location - IP/workstation name: [email or web address]
[2018-04-16] MEDS ORDERED: CEFEPIME 2 GM/D5W RTU 2 GM/50 ML RTUPB IV ONE (21:58)
[2018-04-16 22:28] LABS: HEMATOCRIT 26.3 % (37.9-51.0); HEMOGLOBIN 8.5 g/dL (13.5-17.0); MEAN CORPUSCULAR HEMOGLOBIN 27.7 pg (27.0-33.4); MEAN CORPUSCULAR HGB CONC 32.3 g/dL (32.0-36.0); MEAN CORPUSCULAR VOLUME 86 fl (80-97); PLATELET COUNT 102 10^3/uL (150-450); RED BLOOD COUNT 3.06 10^6/uL (4.35-5.55); RED CELL DISTRIBUTION WIDTH 19.8 % (11.5-14.0); WHITE BLOOD COUNT 26.3 10^3/uL (4.0-10.5)
[2018-04-16 22:34] LABS: VENOUS BLOOD BASE EXCESS -5.7 mmol/L; VENOUS BLOOD HCO3 20.1 mmol/L (20-32); VENOUS BLOOD PCO2 40.5 mmHg (35-63); VENOUS BLOOD PH 7.31 (7.30-7.42)
[2018-04-16 22:50] LABS: ABSOLUTE LYMPHOCYTES# (MANUAL) 1.3 10^3/uL (0.5-4.7); ABSOLUTE MONOCYTES # (MANUAL) 2.1 10^3/uL (0.1-1.4); ABSOLUTE NEUTROPHILS# (MANUAL) 22.6 10^3/uL (1.7-8.2); BAND NEUTROPHILS % (MANUAL) 3 % (3-5); BASOPHILS % (MANUAL) 1 % (0-2); EOSINOPHILS % (MANUAL) 0 % (0-6); LYMPHOCYTES % (MANUAL) 5 % (13-45); MONOCYTES % (MANUAL) 8 % (3-13); SEGMENTED NEUTROPHILS % (MAN) 83 % (42-78); TOTAL CELLS COUNTED 100
[2018-04-16 22:53] LABS: ANISOCYTOSIS 2+; HYPOCHROMASIA 2+; PLATELET COMMENT DECREASED; POLYCHROMASIA SLIGHT; TOXIC GRANULATION 1+; TOXIC VACUOLATION PRESENT
[2018-04-16] MEDS ORDERED: VANCOMYCIN HCL INJ 1000 MG VIAL IV ONE (23:02)
[2018-04-16 23:05] LABS: INTERNATIONAL RATION (INR) 1.51; PROTHROMBIN TIME 18.9 SEC (11.4-15.4)
[2018-04-17 00:07] LABS: ALANINE AMINOTRANSFERASE 47 U/L (21-72); ALBUMIN 2.5 g/dL (3.5-5.0); ALKALINE PHOSPHATASE 191 U/L (38-126); ANION GAP 14 (5-19); ASPARTATE AMINO TRANSFERASE 69 U/L (17-59); BLOOD UREA NITROGEN 57 mg/dL (7-20); CALCIUM 8.7 mg/dL (8.4-10.2); CARBON DIOXIDE 17 mmol/L (22-30); CHLORIDE 107 mmol/L (98-107); GLUCOSE 96 mg/dL (75-110); POTASSIUM 5.4 mmol/L (3.6-5.0); SODIUM 138.1 mmol/L (137-145); TOTAL PROTEIN 6.2 g/dL (6.3-8.2)
[2018-04-17 00:08] LABS: BILIRUBIN,DIRECT 5.9 mg/dL (0.0-0.4); BILIRUBIN,TOTAL 7.1 mg/dL (0.2-1.3); LIPASE 33.8 U/L (23-300)
[2018-04-17] MEDS ORDERED: NORMAL SALINE 1000 ML 1,000 ML IV ONE ×2 (00:18→06:08)
--- NOTE | 2018-04-17 01:39 | RADIOLOGY REPORT (SQ) ---
ULTRASOUND ABDOMEN LIMITED Clinical history: 73-year-old male with upper abdominal pain fever and elevated bilirubin. Technique: Multiple sonographic images are performed of the right upper quadrant abdomen using both grayscale and color Doppler. Comparison: None available. Findings: Pancreas: Portions of the pancreas seen is within normal. However, the pancreas is not well visualized due to overlying bowel gas. IVC and Aorta: Portions of the IVC visualized within the field of view are patent allowing for overlying bowel gas Portions of the aorta included in the field of view measures within normal: Proximal aorta measures 2.5 cm. The mid aorta measures 1.7 cm. The distal aorta measures 1.4 cm. Liver: The liver measures within normal limits at 15.2 cm. Parenchyma demonstrates increased echogenicity. No sonographic evidence of a mass. Portal vein is patent with hepatopedal blood flow. Biliary: The gallbladder lumen contains sludge with a stone in the neck. There is no pericholecystic free fluid. There is no sonographic Leo sign. The gallbladder wall measures 2.7 mm. The common bile duct measures 4.3 mm. Kidneys: Right kidney: Right kidney measures 16.9 cm. An anechoic cyst is seen measuring 8.1 x 8.4 x 7.3 cm. No hydronephrosis nor obstructive stone. Blood flow to the right kidney is within normal limits. IMPRESSION: 1. Gallbladder sludge with stones. Nuclear medicine hepatobiliary scan may help better delineate. 2. Right-sided renal cyst 3. Otherwise unremarkable ultrasound of the abdomen for acute pathology.
--- NOTE | 2018-04-17 04:38 | RADIOLOGY REPORT (SQ) ---
EXAM DESCRIPTION: CT ABDOMEN PELVIS WITHOUT IV CONTRAST COMPLETED DATE/TME: 04/17/2018 02:35 CLINICAL HISTORY: 73 years, Male, elevated bilirubin, cancer; ? abdominal mass COMPARISON: 02/16/2018 TECHNIQUE: Axial CT images were obtained of the abdomen and pelvis without contrast. Sagittal and coronal reformats were performed. DLP 650 Images stored on PACS. All CT scanners at this facility use dose modulation, iterative reconstruction, and/or weight based dosing when appropriate to reduce radiation dose to as low as reasonably achievable (ALARA). [facility]: Dose Right [facility]: CareDose [facility]: Dose Right [facility]: Teradose 4D [facility]: Silith.IO LIMITATIONS: None. FINDINGS: There is a partially imaged rounded consolidation within the right lower lobe which measures 10.0 x 7.9 cm where the previously seen pulmonary mass was. There is layering hyperdensity within the gallbladder. The liver, pancreas, spleen, and adrenal glands are unremarkable. Bilateral renal cysts are noted. There is no evidence of nephrolithiasis or hydronephrosis. There is no intraperitoneal free air or fluid. There is no lymphadenopathy. There are atherosclerotic calcific effusions of the abdominal aorta. The stomach, small bowel, and appendix are unremarkable. The colon is unremarkable. A penile prosthesis is noted. The urinary bladder and prostate gland are unremarkable. There is multilevel spondylosis. IMPRESSION: Partially imaged rounded consolidation involving the right lower lobe which is significantly increased in size compared to the prior. This may represent an enlarging pulmonary mass or pneumonia. Layering hyperdensity within the gallbladder, which may represent stones or sludge. TECHNICAL DOCUMENTATION: Quality ID # [id number]: Final reports with documentation of one or more dose reduction techniques (e.g., Automated exposure control, adjustment of the mA and/or kV according to patient size, use of iterative reconstruction technique) 2010 [email or web address]- All Rights Reserved
[2018-04-17 04:40] LABS: AMORPHOUS SEDIMENT,URINE TRACE /HPF; APPEARANCE,URINE CLOUDY; BILIRUBIN,URINE SMALL (NEGATIVE); COLOR,URINE AMBER; GLUCOSE, URINE NEGATIVE (NEGATIVE); KETONES,URINE NEGATIVE (NEGATIVE); LEUKOCYTE ESTERASE,URINE NEGATIVE (NEGATIVE); NITRITE,URINE NEGATIVE (NEGATIVE); PROTEIN,URINE 30 mg/dL (NEGATIVE); URINE SPECIFIC GRAVITY 1.021
[2018-04-17] MEDS ORDERED: ACETAMINOPHEN 325 MG TABLET PO ONE (05:27)
[2018-04-17] MEDS ORDERED: CEFEPIME 2 GM/D5W RTU 50 ML IV SCH (05:30)
[2018-04-17] MEDS ORDERED: VANCOMYCIN HCL 0 MG in DEXTROSE 5%-WATER 250 ML IV NR (05:45)
[2018-04-17] MEDS ORDERED: LEVOFLOXACIN 750 MG/D5W RTU 150 ML IV SCH (06:00)
[2018-04-17 06:34] LABS: HEMATOCRIT 23.1 % (37.9-51.0); MEAN CORPUSCULAR HEMOGLOBIN 27.4 pg (27.0-33.4); MEAN CORPUSCULAR HGB CONC 32.9 g/dL (32.0-36.0); MEAN CORPUSCULAR VOLUME 83 fl (80-97); RED BLOOD COUNT 2.78 10^6/uL (4.35-5.55); RED CELL DISTRIBUTION WIDTH 19.5 % (11.5-14.0); WHITE BLOOD COUNT 21.8 10^3/uL (4.0-10.5)
[2018-04-17 06:46] LABS: HEMOGLOBIN 7.6 g/dL (13.5-17.0)
[2018-04-17 06:53] LABS: PLATELET COUNT 99 10^3/uL (150-450)
[2018-04-17 06:55] LABS: ABSOLUTE LYMPHOCYTES# (MANUAL) 0.4 10^3/uL (0.5-4.7); ABSOLUTE MONOCYTES # (MANUAL) 1.5 10^3/uL (0.1-1.4); ABSOLUTE NEUTROPHILS# (MANUAL) 19.8 10^3/uL (1.7-8.2); ALANINE AMINOTRANSFERASE 44 U/L (21-72); ALBUMIN 2.4 g/dL (3.5-5.0); ALKALINE PHOSPHATASE 182 U/L (38-126); ANION GAP 12 (5-19); ASPARTATE AMINO TRANSFERASE 68 U/L (17-59); BAND NEUTROPHILS % (MANUAL) 3 % (3-5); BASOPHILS % (MANUAL) 0 % (0-2); BLOOD UREA NITROGEN 57 mg/dL (7-20); CALCIUM 8.8 mg/dL (8.4-10.2); CARBON DIOXIDE 18 mmol/L (22-30); CHLORIDE 107 mmol/L (98-107); EOSINOPHILS % (MANUAL) 0 % (0-6); GLUCOSE 116 mg/dL (75-110); LYMPHOCYTES % (MANUAL) 2 % (13-45); MONOCYTES % (MANUAL) 7 % (3-13); POTASSIUM 5.3 mmol/L (3.6-5.0); SEGMENTED NEUTROPHILS % (MAN) 88 % (42-78); SODIUM 137.4 mmol/L (137-145); TOTAL CELLS COUNTED 100; TOTAL PROTEIN 6.2 g/dL (6.3-8.2)
[2018-04-17 06:58] LABS: ANISOCYTOSIS 2+; HYPOCHROMASIA 2+; PLATELET COMMENT DECREASED; POLYCHROMASIA SLIGHT
[2018-04-17] MEDS: LEVALBUTEROL HCL NEB 1.25 MG/3 ML AMPUL NEB SCH ×5 (07:38→20:34)
--- NOTE | 2018-04-17 07:47 | RADIOLOGY REPORT (SQ) ---
EXAM DESCRIPTION: XR CHEST 1 VIEW COMPLETED DATE/TME: 04/17/2018 07:00 CLINICAL HISTORY: 73 years Male, s/p central line COMPARISON: One day prior. NUMBER OF VIEWS/TECHNIQUE: 1/AP FINDINGS: Large opacity of the right lower lung field, moderate interstitial markings, moderate right lung volume, normal cardiac silhouette, right jugular central line tip at the cavoatrial junction. No pneumothorax. No acute bone defect. IMPRESSION: Interval line modification.
[2018-04-17] MEDS ORDERED: LEVOFLOXACIN 750 MG/D5W RTU 750 MG/150 ML RTUPB IV ONE (08:00)
[2018-04-17] MEDS: HEPARIN SOD (PORCINE) 5,000 UNIT/ML 1 ML SYRINGE SUBCUT SCH ×3 (08:40→22:45)
[2018-04-17] MEDS: NORMAL SALINE 1000 ML 1,000 ML IV PRN ×2 (08:41→18:21)
[2018-04-17] MEDS: LEVOFLOXACIN 750 MG/D5W RTU 750 MG/150 ML RTUPB IV SCH (08:46)
[2018-04-17] MEDS ORDERED: NORMAL SALINE 250 ML IV PRN ×2 (09:13)
[2018-04-17 09:36] LABS: ARTERIAL BLOOD BASE EXCESS -6.2 mmol/L; ARTERIAL BLOOD H2CO3 0.96 mmol/L (1.05-1.35); ARTERIAL BLOOD O2 SATURATION 97.1 % (94-98); ARTERIAL BLOOD PH 7.37 (7.35-7.45); ARTERIAL BLOOD PO2 93.9 mmHg (80-100); ARTERIAL BLOOD TOTAL CO2 18.9 mmol/L (23-27)
[2018-04-17 09:37] LABS: ARTERIAL BLOOD FIO2 30%
--- NOTE | 2018-04-17 09:46 | EKG REPORT ---
SEVERITY:- ABNORMAL ECG - SINUS TACHYCARDIA RIGHT BUNDLE BRANCH BLOCK : Confirmed by: Shaan Macias 17-Apr-2018 09:46:13
--- NOTE | 2018-04-17 12:17 | PDOC H&P ---
History of Present Illness Admission Date/PCP: 04/17/18 05:08 SADIE MCCRAY MD History of Present Illness: MEG MONTGOMERY is a 73 year old male, he came to the emergency room for evaluation of fever, shortness of breath, abdominal pain. He has a history of malignant neoplasm of the lung follow-up with oncologist Dr. Chen, he had CT chest with CT scan of the abdomen and pelvis with IV contrast on 2017, the CT chest showed numerous bilateral pulmonary nodules progressive in size the largest is in the left lower lobe it measures 1.4 cm in transverse dimension, this is a recurrent lung cancer he underwent right upper lobe lobectomy about a year ago. A chest x-ray was done in the ER earlier this morning chest x-ray showed a new dense consolidation in the right middle and lower lobe worrisome for postobstructive pneumonia, is known to have a right hilar tumor from previous CT scan chest that was done on 02/16/2018. In the emergency room he was evaluated and managed appropriately, blood pressure was low when he arrived he was given boluses of normal saline in the ER and timely IV antibiotic was administered. Patient is known to have chronic kidney disease due to polycystic kidney, initially when he arrived in the ER it was felt that he could be treated in intermediate care unit but developed low blood pressure and he is being transferred to ICU. He has severe leukocytosis subsequent hemogram showed anemia, thrombocytopenia he met sepsis criteria with fever leukocytosis low blood pressure acute on chronic kidney disease. The respiration was initially supported with noninvasive positive pressure ventilation, BiPAP. Past Medical History Cardiac Medical History: Reports: Hypertension Pulmonary Medical History: Reports: Chronic Obstructive Pulmonary Disease (COPD) Malignancy Medical History: Reports: Lung Cancer Musculoskeltal Medical History: Denies: Arthritis Social History Lives with: Family Smoking Status: Former Smoker Last Time Smoked: 1994 Frequency of Alcohol Use: None Hx Recreational Drug Use: No Hx Prescription Drug Abuse: No Family History Family History: Reviewed & Not Pertinent Parental Family History Reviewed: Yes Children Family History Reviewed: Yes Sibling(s) Family History Reviewed.: Yes Medication/Allergy Allergies/Adverse Reactions: No Known Allergies Allergy (Verified 04/27/14 21:43) Review of Systems Constitutional: PRESENT: fever(s) Eyes: ABSENT: visual disturbances Ears: ABSENT: hearing changes Cardiovascular: ABSENT: chest pain, dyspnea on exertion, edema, orthropnea, palpitations Respiratory: PRESENT: cough, dyspnea. ABSENT: hemoptysis Gastrointestinal: ABSENT: abdominal pain, constipation, diarrhea, hematemesis, hematochezia, nausea, vomiting Genitourinary: ABSENT: dysuria, hematuria Musculoskeletal: ABSENT: joint swelling Integumentary: ABSENT: rash, wounds Neurological: ABSENT: abnormal gait, abnormal speech, confusion, dizziness, focal weakness, syncope Psychiatric: ABSENT: anxiety, depression, homidical ideation, suicidal ideation Endocrine: ABSENT: cold intolerance, heat intolerance, menstrual abnormalities, polydipsia, polyuria Hematologic/Lymphatic: ABSENT: easy bleeding, easy bruising, lymphadenopathy Physical Exam Vital Signs: Temp Pulse Resp BP Pulse Ox 99.0 F 114 H 22 H 109/64 95 04/17/18 11:22 04/17/18 11:26 04/17/18 11:26 04/17/18 11:22 04/17/18 11:26 Intake & Output 04/16/18 04/17/18 04/18/18 06:59 06:59 06:59 Intake Total 0 Output Total 0 Balance 0 Weight 96.7 kg General appearance: PRESENT: mild distress Head exam: PRESENT: atraumatic Eye exam: PRESENT: PERRLA Ear exam: PRESENT: normal external ear exam Mouth exam: PRESENT: moist, tongue midline Neck exam: PRESENT: full ROM Respiratory exam: PRESENT: rhonchi, tachypnea Cardiovascular exam: PRESENT: RRR, +S1, +S2 GI/Abdominal exam: PRESENT: normal bowel sounds, soft Rectal exam: PRESENT: deferred Neurological exam: PRESENT: alert, CN II-XII grossly intact Psychiatric exam: PRESENT: appropriate affect, normal mood Skin exam: PRESENT: dry, intact, warm Results Laboratory Results: 04/17/18 06:10 04/17/18 06:10 04/17/18 04/17/18 04/17/18 06:10 06:10 08:05 WBC 21.8 H RBC 2.78 L Hgb 7.6 L Hct 23.1 L MCV 83 MCH 27.4 MCHC 32.9 RDW 19.5 H Plt Count 99 L Seg Neutrophils % Not Reportable Lymphocytes % Not Reportable Monocytes % Not Reportable Eosinophils % Not Reportable Basophils % Not Reportable Absolute Neutrophils Not Reportable Absolute Lymphocytes Not Reportable Absolute Monocytes Not Reportable Absolute Eosinophils Not Reportable Absolute Basophils Not Reportable Carbonic Acid HCO3/H2CO3 Ratio ABG pH ABG pCO2 ABG pO2 ABG HCO3 ABG O2 Saturation ABG Base Excess FiO2 Sodium 137.4 Potassium 5.3 H Chloride 107 Carbon Dioxide 18 L Anion Gap 12 BUN 57 H Creatinine 3.31 H Est GFR ( Amer) 22 L Est GFR (Non-Af Amer) 18 L Glucose 116 H Calcium 8.8 Total Bilirubin 7.0 H AST 68 H ALT 44 Alkaline Phosphatase 182 H Total Protein 6.2 L Albumin 2.4 L Blood Type O POSITIVE Antibody Screen NEGATIVE 04/17/18 09:20 WBC RBC Hgb Hct MCV MCH MCHC RDW Plt Count Seg Neutrophils % Lymphocytes % Monocytes % Eosinophils % Basophils % Absolute Neutrophils Absolute Lymphocytes Absolute Monocytes Absolute Eosinophils Absolute Basophils Carbonic Acid 0.96 L HCO3/H2CO3 Ratio 18:1 ABG pH 7.37 ABG pCO2 32.0 L ABG pO2 93.9 ABG HCO3 18.0 L ABG O2 Saturation 97.1 ABG Base Excess -6.2 FiO2 30% Sodium Potassium Chloride Carbon Dioxide Anion Gap BUN Creatinine Est GFR ( Amer) Est GFR (Non-Af Amer) Glucose Calcium Total Bilirubin AST ALT Alkaline Phosphatase Total Protein Albumin Blood Type Antibody Screen 04/17/18 06:10 Troponin I 0.089 Impressions: Abdomen Ultrasound 04/17/18 00:19 IMPRESSION: 1. Gallbladder sludge with stones. Nuclear medicine hepatobiliary scan may help better delineate. 2. Right-sided renal cyst 3. Otherwise unremarkable ultrasound of the abdomen for acute pathology. Abdomen/Pelvis CT 04/17/18 02:35 IMPRESSION: Partially imaged rounded consolidation involving the right lower lobe which is significantly increased in size compared to the prior. This may represent an enlarging pulmonary mass or pneumonia. Layering hyperdensity within the gallbladder, which may represent stones or sludge. TECHNICAL DOCUMENTATION: Quality ID # [id number]: Final reports with documentation of one or more dose reduction techniques (e.g., Automated exposure control, adjustment of the mA and/or kV according to patient size, use of iterative reconstruction technique) 2010 [employer]- All Rights Reserved Chest X-Ray 04/17/18 07:00 IMPRESSION: Interval line modification. Assessment & Plan - Diagnosis (1) Sepsis Qualifiers: Sepsis type: sepsis due to unspecified organism Qualified Code(s): A41.9 - Sepsis, unspecified organism Is this a current diagnosis for this admission?: Yes Plan: He has sepsis from pneumonia, treated with IV fluid at 30ml/kg, patient blood pressure does seem to respond to fluid he does not need any pressors at this time, is also anemic he will need blood transfusion (2) Acute kidney injury Is this a current diagnosis for this admission?: Yes (3) Malignant neoplasm of lung Qualifiers: Laterality: right Lung location: middle lobe of lung Qualified Code(s): C34.2 - Malignant neoplasm of middle lobe, bronchus or lung Is this a current diagnosis for this admission?: Yes (4) Hypotension Qualifiers: Hypotension type: unspecified hypotension type Qualified Code(s): I95.9 - Hypotension, unspecified Is this a current diagnosis for this admission?: Yes (5) Pneumonia Qualifiers: Pneumonia type: due to unspecified organism Laterality: right Lung location: middle lobe of lung Qualified Code(s): J18.1 - Lobar pneumonia, unspecified organism Is this a current diagnosis for this admission?: Yes Plan: He probably have postobstructive pneumonia, he has right malignant neoplasm of the lung, recurrent, in the hilium on active chemotherapy, he will empirically be treated with IV antibiotic, vancomycin, cefepime and Levaquin to cover potential pathogens, the left lung is clear (6) Anemia Qualifiers: Other causes of anemia: other cause, not classified Is this a current diagnosis for this admission?: Yes Plan: Transfuse with packed red blood cells (7) Thrombocytopenia Is this a current diagnosis for this admission?: Yes
--- NOTE | 2018-04-17 12:42 | PDOC CONSULTATION ---
Consultation Consult Date: 04/17/18 Consult reason:: Hematology/Oncology consultation was requested for patient with lung cancer. History of Present Illness Admission Date/PCP: 04/17/18 05:08 SADIE MCCRAY MD History of Present Illness: MEG MONTGOMERY is a 73 year old male with a diagnosis of Stage IV Adenocarcinoma of the lungs. He has been on a clinical trial including pembrolizumab and tiral drug [place] [id number]/Peglodecorkin. He was due for cycle #3 on 04/15/18, but this dose was held due to fever. His most recent dose of chemo was pembrolizumab only on 03/25/2018. Over the past few days, he has had fever and was treated for UTI with Oral Levaquin and IV Ceftriaxone. Last night, his fever returned and he developed dyspnea. He presented to the ED and was admitted for Sepsis with liver and kidney acute injury. On 04/14/2018 in our office, his HGB was 9.1; PLT 88; Cr 2.2; Tbili 2.6; Alk Phos 231. He is currently receiving pRBC transfusion. He states that his breathing is better this morning. Chest CT showed pulmonary mass, but no evidence of biliary dilation or obstruction. He is complaining of Hiccups. Past Medical History Cardiac Medical History: Reports: Hypertension Denies: Coronary Artery Disease, Myocardial Infarction Pulmonary Medical History: Reports: Chronic Obstructive Pulmonary Disease (COPD) Denies: Asthma, Bronchitis, Pneumonia Neurological Medical History: Denies: Seizures Malignancy Medical History: Reports: Lung Cancer Musculoskeltal Medical History: Denies: Arthritis Psychiatric Medical History: Denies: Depression Hematology: Denies: Anemia Social History Lives with: Family Smoking Status: Former Smoker Last Time Smoked: 1994 Frequency of Alcohol Use: None Hx Recreational Drug Use: No Hx Prescription Drug Abuse: No Family History Parental Family History Reviewed: Yes - Mother with pancreatic cancer. Father with alcoholism Children Family History Reviewed: No Sibling(s) Family History Reviewed.: Yes - Several siblings with various cancers. Medication/Allergy Home Medications: Atenolol [Tenormin 50 mg Tablet] 50 mg PO DAILY 04/17/18 Atorvastatin Calcium [Lipitor 40 mg Tablet] 40 mg PO QHS 04/17/18 Oxycodone HCl [Oxy-Ir 5 mg Tablet] 5 mg PO Q12HP PRN 04/17/18 Valsartan/Hydrochlorothiazide [Valsartan-Hctz 320-25 mg Tab] 1 tab PO DAILY 01/28 Allergies/Adverse Reactions: No Known Allergies Allergy (Verified 04/27/14 21:43) Review of Systems Constitutional: PRESENT: fever(s). ABSENT: headache(s) Eyes: ABSENT: visual disturbances Ears: ABSENT: hearing changes Nose, Mouth, and Throat: ABSENT: sore throat Cardiovascular: PRESENT: chest pain - Now resolved. Respiratory: PRESENT: dyspnea Gastrointestinal: PRESENT: other - Hiccups. ABSENT: abdominal pain Genitourinary: ABSENT: dysuria Musculoskeletal: ABSENT: back pain Neurological: ABSENT: weakness Psychiatric: ABSENT: anxiety, depression Hematologic/Lymphatic: ABSENT: lymphadenopathy Physical Exam Vital Signs: Temp Pulse Resp BP Pulse Ox 99.1 F 121 H 27 H 82/52 L 96 04/17/18 12:22 04/17/18 12:22 04/17/18 12:22 04/17/18 12:22 04/17/18 12:22 Intake & Output 04/16/18 04/17/18 04/18/18 06:59 06:59 06:59 Intake Total 0 Output Total 0 Balance 0 Weight 96.7 kg General appearance: PRESENT: mild distress Exam: Overweight, male Head exam: PRESENT: normocephalic Eye exam: PRESENT: PERRLA, scleral icterus Ear exam: PRESENT: normal external ear exam Mouth exam: PRESENT: neck supple, tongue midline Neck exam: ABSENT: lymphadenopathy, tenderness Respiratory exam: PRESENT: prolonged expiratory phas, wheezes, other - Mild respiratory distress. Cardiovascular exam: PRESENT: RRR, tachycardia Pulses: PRESENT: normal dorsalis pedis pul GI/Abdominal exam: PRESENT: normal bowel sounds, soft. ABSENT: tenderness Extremities exam: ABSENT: pedal edema Neurological exam: PRESENT: alert, awake Psychiatric exam: PRESENT: appropriate affect Focused psych exam: PRESENT: other - Difficulty talking due to breathing. Skin exam: PRESENT: normal color Results Laboratory Results: 04/17/18 06:10 04/17/18 06:10 04/17/18 04/17/18 04/17/18 06:10 06:10 08:05 WBC 21.8 H RBC 2.78 L Hgb 7.6 L Hct 23.1 L MCV 83 MCH 27.4 MCHC 32.9 RDW 19.5 H Plt Count 99 L Seg Neutrophils % Not Reportable Lymphocytes % Not Reportable Monocytes % Not Reportable Eosinophils % Not Reportable Basophils % Not Reportable Absolute Neutrophils Not Reportable Absolute Lymphocytes Not Reportable Absolute Monocytes Not Reportable Absolute Eosinophils Not Reportable Absolute Basophils Not Reportable Carbonic Acid HCO3/H2CO3 Ratio ABG pH ABG pCO2 ABG pO2 ABG HCO3 ABG O2 Saturation ABG Base Excess FiO2 Sodium 137.4 Potassium 5.3 H Chloride 107 Carbon Dioxide 18 L Anion Gap 12 BUN 57 H Creatinine 3.31 H Est GFR ( Amer) 22 L Est GFR (Non-Af Amer) 18 L Glucose 116 H Calcium 8.8 Total Bilirubin 7.0 H AST 68 H ALT 44 Alkaline Phosphatase 182 H Total Protein 6.2 L Albumin 2.4 L Blood Type O POSITIVE Antibody Screen NEGATIVE 04/17/18 09:20 WBC RBC Hgb Hct MCV MCH MCHC RDW Plt Count Seg Neutrophils % Lymphocytes % Monocytes % Eosinophils % Basophils % Absolute Neutrophils Absolute Lymphocytes Absolute Monocytes Absolute Eosinophils Absolute Basophils Carbonic Acid 0.96 L HCO3/H2CO3 Ratio 18:1 ABG pH 7.37 ABG pCO2 32.0 L ABG pO2 93.9 ABG HCO3 18.0 L ABG O2 Saturation 97.1 ABG Base Excess -6.2 FiO2 30% Sodium Potassium Chloride Carbon Dioxide Anion Gap BUN Creatinine Est GFR ( Amer) Est GFR (Non-Af Amer) Glucose Calcium Total Bilirubin AST ALT Alkaline Phosphatase Total Protein Albumin Blood Type Antibody Screen 04/17/18 06:10 Troponin I 0.089 Impressions: Abdomen Ultrasound 04/17/18 00:19 IMPRESSION: 1. Gallbladder sludge with stones. Nuclear medicine hepatobiliary scan may help better delineate. 2. Right-sided renal cyst 3. Otherwise unremarkable ultrasound of the abdomen for acute pathology. Abdomen/Pelvis CT 04/17/18 02:35 IMPRESSION: Partially imaged rounded consolidation involving the right lower lobe which is significantly increased in size compared to the prior. This may represent an enlarging pulmonary mass or pneumonia. Layering hyperdensity within the gallbladder, which may represent stones or sludge. TECHNICAL DOCUMENTATION: Quality ID # [id number]: Final reports with documentation of one or more dose reduction techniques (e.g., Automated exposure control, adjustment of the mA and/or kV according to patient size, use of iterative reconstruction technique) 2010 [employer]- All Rights Reserved Chest X-Ray 04/17/18 07:00 IMPRESSION: Interval line modification. Assessment & Plan - Diagnosis (1) Lung cancer Qualifiers: Laterality: right Lung location: unspecified part of lung Qualified Code( s): C34.91 - Malignant neoplasm of unspecified part of right bronchus or lung Plan: All treatment is on hold. Because he is on an immune modulator, I will add steroids, as autoimmune hepatits has been reported with these type of medications. (2) Pneumonia Qualifiers: Pneumonia type: due to unspecified organism Laterality: right Lung location: middle lobe of lung Qualified Code(s): J18.1 - Lobar pneumonia, unspecified organism Is this a current diagnosis for this admission?: Yes Plan: With history of UTI as well. Continue antibiotics. He may also have progression of his tumor, contributing to this. (3) Sepsis Qualifiers: Sepsis type: sepsis due to unspecified organism Qualified Code(s): A41.9 - Sepsis, unspecified organism Is this a current diagnosis for this admission?: Yes Plan: With acute hepato-renal failure. Again, unsure if this is medication side effect, immune reaction, or infection. Will treat for all. (4) Anemia Qualifiers: Other causes of anemia: other cause, not classified Is this a current diagnosis for this admission?: Yes Plan: with Thrombocytopenia - No evidence of TTP on blood smear. I will check LDH. He is receiving blood transfusion. No current evidence of active bleeding. - Plan Summary Plan Summary: Patient was discussed with the ICU staff and hospitalist.
[2018-04-17] MEDS: METHYLPREDNISOLONE INJ 125 MG/2 ML SDV IV SCH ×2 (13:31→22:45)
[2018-04-17] MEDS: BACLOFEN 10 MG TABLET PO PRN (18:45)
[2018-04-17 18:51] LABS: HEMATOCRIT 27.1 % (37.9-51.0); HEMOGLOBIN 8.9 g/dL (13.5-17.0); MEAN CORPUSCULAR HEMOGLOBIN 27.7 pg (27.0-33.4); MEAN CORPUSCULAR HGB CONC 32.9 g/dL (32.0-36.0); MEAN CORPUSCULAR VOLUME 84 fl (80-97); PLATELET COUNT 106 10^3/uL (150-450); RED BLOOD COUNT 3.21 10^6/uL (4.35-5.55); RED CELL DISTRIBUTION WIDTH 18.1 % (11.5-14.0)
[2018-04-17 19:19] LABS: WHITE BLOOD COUNT 20.6 10^3/uL (4.0-10.5)
[2018-04-17] MEDS ORDERED: ADENOSINE INJ/PF 6 MG/2 ML SDV IV ONE ×2 (19:48→19:49)
[2018-04-17] MEDS ORDERED: AMIODARONE HCL INJ 150 MG/3 ML VIAL IV ONE ×2 (20:00→20:02)
[2018-04-17] MEDS: DEXTROSE 5%-WATER 500 ML with AMIODARONE HCL 900 MG IV PRN ×2 (20:20)
[2018-04-17] MEDS ORDERED: DIGOXIN INJ 0.5 MG/2 ML AMPULE ONE (20:45)
[2018-04-17 20:48] LABS: INTERNATIONAL RATION (INR) 1.43; PROTHROMBIN TIME 18.1 SEC (11.4-15.4)
[2018-04-17 20:49] LABS: HEMATOCRIT 27.3 % (37.9-51.0); MEAN CORPUSCULAR HEMOGLOBIN 27.9 pg (27.0-33.4); MEAN CORPUSCULAR VOLUME 85 fl (80-97); PLATELET COUNT 109 10^3/uL (150-450); RED BLOOD COUNT 3.23 10^6/uL (4.35-5.55); RED CELL DISTRIBUTION WIDTH 17.7 % (11.5-14.0); WHITE BLOOD COUNT 19.8 10^3/uL (4.0-10.5)
[2018-04-17 20:52] LABS: ALANINE AMINOTRANSFERASE 39 U/L (21-72); ALBUMIN 2.3 g/dL (3.5-5.0); ALKALINE PHOSPHATASE 174 U/L (38-126); ANION GAP 14 (5-19); ASPARTATE AMINO TRANSFERASE 64 U/L (17-59); BILIRUBIN,DIRECT 6.1 mg/dL (0.0-0.4); BILIRUBIN,TOTAL 7.1 mg/dL (0.2-1.3); BLOOD UREA NITROGEN 52 mg/dL (7-20); CARBON DIOXIDE 16 mmol/L (22-30); CHLORIDE 110 mmol/L (98-107); CREATINE KINASE 142 U/L (55-170); GLUCOSE 141 mg/dL (75-110); POTASSIUM 5.1 mmol/L (3.6-5.0); SODIUM 140.4 mmol/L (137-145); TOTAL PROTEIN 6.1 g/dL (6.3-8.2)
[2018-04-17] MEDS ORDERED: VERAPAMIL HCL INJ/PF 5 MG/2 ML SDV IV ONE ×2 (20:54→20:56)
[2018-04-17] MEDS ORDERED: DIGOXIN INJ 0.5 MG/2 ML AMPULE IV ONE (21:00)
[2018-04-17 21:03] LABS: ABSOLUTE LYMPHOCYTES# (MANUAL) 0.6 10^3/uL (0.5-4.7); ABSOLUTE MONOCYTES # (MANUAL) 0.4 10^3/uL (0.1-1.4); ABSOLUTE NEUTROPHILS# (MANUAL) 18.8 10^3/uL (1.7-8.2); BAND NEUTROPHILS % (MANUAL) 3 % (3-5); BASOPHILS % (MANUAL) 0 % (0-2); EOSINOPHILS % (MANUAL) 0 % (0-6); LYMPHOCYTES % (MANUAL) 3 % (13-45); MONOCYTES % (MANUAL) 2 % (3-13); SEGMENTED NEUTROPHILS % (MAN) 92 % (42-78); TOTAL CELLS COUNTED 100
[2018-04-17 21:04] LABS: CREATINE KINASE MB 1.2 ng/mL (<4.55); TROPONIN I 0.055 ng/mL
[2018-04-17 21:06] LABS: ANISOCYTOSIS 1+; HYPOCHROMASIA 1+; TOXIC GRANULATION 1+
[2018-04-17 21:07] LABS: PLATELET COMMENT DECREASED; PLATELET LARGE PRESENT; TOXIC VACUOLATION PRESENT
[2018-04-17] MEDS ORDERED: AMIODARONE HCL 150 MG in DEXTROSE 5%-WATER 100 ML IV ONE (21:15)
[2018-04-17] MEDS: GUAIFENESIN 600 MG TABLET.SA PO SCH (22:44)
[2018-04-17] MEDS: CEFEPIME 1 GM/D5W RTU 1 GM/50 ML RTUPB IV SCH (22:45)
--- NOTE | 2018-04-17 23:39 | EKG REPORT ---
SEVERITY:- ABNORMAL ECG - EXTREME TACHYCARDIA WITH WIDE COMPLEX, NO FURTHER RHYTHM ANALYSIS ATTEMPTED : Confirmed by: Shaan Macias 17-Apr-2018 23:39:09
[2018-04-18] MEDS: LEVALBUTEROL HCL NEB 1.25 MG/3 ML AMPUL NEB SCH ×11 (00:03→23:43)
[2018-04-18] MEDS: METHYLPREDNISOLONE INJ 125 MG/2 ML SDV IV SCH ×7 (00:25→23:03)
[2018-04-18] MEDS: NORMAL SALINE 1000 ML 1,000 ML IV PRN ×3 (02:07→20:32)
[2018-04-18 02:47] LABS: CREATINE KINASE MB 1.26 ng/mL (<4.55); TROPONIN I 0.032 ng/mL
[2018-04-18] MEDS: HEPARIN SOD (PORCINE) 5,000 UNIT/ML 1 ML SYRINGE SUBCUT SCH ×3 (05:30→23:03)
[2018-04-18] MEDS: BACLOFEN 10 MG TABLET PO PRN ×3 (05:50→18:43)
[2018-04-18] MEDS ORDERED: VANCOMYCIN HCL 750 MG in DEXTROSE 5%-WATER 250 ML IV SCH (06:00)
--- NOTE | 2018-04-18 06:50 | EKG REPORT ---
SEVERITY:- ABNORMAL ECG - SINUS RHYTHM ATRIAL PREMATURE COMPLEX RIGHT BUNDLE BRANCH BLOCK : Confirmed by: Shaan Macias 18-Apr-2018 06:49:59
[2018-04-18 07:23] LABS: HEMATOCRIT 25.8 % (37.9-51.0); HEMOGLOBIN 8.6 g/dL (13.5-17.0); MEAN CORPUSCULAR HEMOGLOBIN 28.1 pg (27.0-33.4); MEAN CORPUSCULAR HGB CONC 33.1 g/dL (32.0-36.0); MEAN CORPUSCULAR VOLUME 85 fl (80-97); PLATELET COUNT 106 10^3/uL (150-450); RED BLOOD COUNT 3.05 10^6/uL (4.35-5.55); RED CELL DISTRIBUTION WIDTH 18.6 % (11.5-14.0); WHITE BLOOD COUNT 19.8 10^3/uL (4.0-10.5)
[2018-04-18 07:31] LABS: ALANINE AMINOTRANSFERASE 32 U/L (21-72); ALBUMIN 2.2 g/dL (3.5-5.0); ALKALINE PHOSPHATASE 160 U/L (38-126); ANION GAP 10 (5-19); ASPARTATE AMINO TRANSFERASE 60 U/L (17-59); BILIRUBIN,DIRECT 5.4 mg/dL (0.0-0.4); BILIRUBIN,TOTAL 6.1 mg/dL (0.2-1.3); BLOOD UREA NITROGEN 50 mg/dL (7-20); CALCIUM 9.1 mg/dL (8.4-10.2); CARBON DIOXIDE 19 mmol/L (22-30); CHLORIDE 111 mmol/L (98-107); CREATINE KINASE 91 U/L (55-170); GLUCOSE 217 mg/dL (75-110); POTASSIUM 4.3 mmol/L (3.6-5.0); SODIUM 140.4 mmol/L (137-145); TOTAL PROTEIN 5.7 g/dL (6.3-8.2)
[2018-04-18] MEDS: IPRATROPIUM BROMIDE 0.02% NEB 0.5 MG/2.5 ML AMPUL NEB PRN ×3 (07:33→07:37)
[2018-04-18 08:03] LABS: CREATINE KINASE MB 1.49 ng/mL (<4.55); TROPONIN I 0.017 ng/mL
[2018-04-18 08:04] LABS: ABSOLUTE LYMPHOCYTES# (MANUAL) 0.4 10^3/uL (0.5-4.7); ABSOLUTE NEUTROPHILS# (MANUAL) 18.4 10^3/uL (1.7-8.2); ANISOCYTOSIS 2+; BAND NEUTROPHILS % (MANUAL) 2 % (3-5); BASOPHILS % (MANUAL) 0 % (0-2); EOSINOPHILS % (MANUAL) 0 % (0-6); LYMPHOCYTES % (MANUAL) 2 % (13-45); MONOCYTES % (MANUAL) 5 % (3-13); PLATELET COMMENT DECREASED; POLYCHROMASIA 1+; SEGMENTED NEUTROPHILS % (MAN) 91 % (42-78); TOTAL CELLS COUNTED 100; TOXIC GRANULATION 1+
--- NOTE | 2018-04-18 08:04 | PDOC PROGRESS REPORT ---
Subjective Progress Note for:: 04/18/18 Subjective:: Pt seems better this am, now on broad spec atbx and steroids. Was placed on high dose steroids for COPD and adrenal protection 2nd to hypotension. But we discussed that this could also improve any immune mediated response. Reason For Visit: POST-OBSTRUCTIVE PNEUMONIA, H/O RUL CANCER Physical Exam Vital Signs: Temp Pulse Resp BP Pulse Ox 96.5 F L 86 19 125/75 99 04/18/18 07:56 04/18/18 07:56 04/18/18 07:56 04/18/18 07:56 04/18/18 07:56 Intake & Output 04/17/18 04/18/18 04/19/18 06:59 06:59 06:59 Intake Total 3070 Output Total 860 Balance 2210 Weight 98.6 kg General appearance: PRESENT: no acute distress, well-developed, well-nourished Head exam: PRESENT: atraumatic, normocephalic Eye exam: PRESENT: conjunctiva pink, EOMI, PERRLA. ABSENT: scleral icterus Ear exam: PRESENT: normal external ear exam Mouth exam: PRESENT: moist, tongue midline Neck exam: ABSENT: carotid bruit, JVD, lymphadenopathy, thyromegaly Respiratory exam: PRESENT: clear to auscultation jim. ABSENT: rales, rhonchi, wheezes Cardiovascular exam: PRESENT: RRR. ABSENT: diastolic murmur, rubs, systolic murmur Pulses: PRESENT: normal dorsalis pedis pul Vascular exam: PRESENT: normal capillary refill GI/Abdominal exam: PRESENT: normal bowel sounds, soft. ABSENT: distended, guarding, mass, organolmegaly, rebound, tenderness Rectal exam: PRESENT: deferred Extremities exam: PRESENT: full ROM. ABSENT: calf tenderness, clubbing, pedal edema Neurological exam: PRESENT: alert, awake, oriented to person, oriented to place , oriented to time, oriented to situation, CN II-XII grossly intact. ABSENT: motor sensory deficit Psychiatric exam: PRESENT: appropriate affect, normal mood. ABSENT: homicidal ideation, suicidal ideation Skin exam: PRESENT: dry, intact, warm. ABSENT: cyanosis, rash Results Laboratory Results: 04/18/18 07:10 04/17/18 04/17/18 04/17/18 08:05 09:20 18:35 WBC 20.6 H RBC 3.21 L Hgb 8.9 L Hct 27.1 L MCV 84 MCH 27.7 MCHC 32.9 RDW 18.1 H Plt Count 106 L Seg Neutrophils % Lymphocytes % Monocytes % Eosinophils % Basophils % Absolute Neutrophils Absolute Lymphocytes Absolute Monocytes Absolute Eosinophils Absolute Basophils Carbonic Acid 0.96 L HCO3/H2CO3 Ratio 18:1 ABG pH 7.37 ABG pCO2 32.0 L ABG pO2 93.9 ABG HCO3 18.0 L ABG O2 Saturation 97.1 ABG Base Excess -6.2 FiO2 30% Sodium Potassium Chloride Carbon Dioxide Anion Gap BUN Creatinine Est GFR ( Amer) Est GFR (Non-Af Amer) Glucose Calcium Magnesium Total Bilirubin AST ALT Alkaline Phosphatase Total Protein Albumin Blood Type O POSITIVE Antibody Screen NEGATIVE 04/17/18 04/17/18 04/18/18 19:55 19:55 07:10 WBC 19.8 H 19.8 H RBC 3.23 L 3.05 L Hgb 9.0 L 8.6 L Hct 27.3 L 25.8 L MCV 85 85 MCH 27.9 28.1 MCHC 33.0 33.1 RDW 17.7 H 18.6 H Plt Count 109 L 106 L Seg Neutrophils % Not Reportable Not Reportable Lymphocytes % Not Reportable Not Reportable Monocytes % Not Reportable Not Reportable Eosinophils % Not Reportable Not Reportable Basophils % Not Reportable Not Reportable Absolute Neutrophils Not Reportable Not Reportable Absolute Lymphocytes Not Reportable Not Reportable Absolute Monocytes Not Reportable Not Reportable Absolute Eosinophils Not Reportable Not Reportable Absolute Basophils Not Reportable Not Reportable Carbonic Acid HCO3/H2CO3 Ratio ABG pH ABG pCO2 ABG pO2 ABG HCO3 ABG O2 Saturation ABG Base Excess FiO2 Sodium 140.4 Potassium 5.1 H Chloride 110 H Carbon Dioxide 16 L Anion Gap 14 BUN 52 H Creatinine 2.68 H Est GFR ( Amer) 28 L Est GFR (Non-Af Amer) 24 L Glucose 141 H Calcium 9.0 Magnesium 2.0 Total Bilirubin 7.1 H AST 64 H ALT 39 Alkaline Phosphatase 174 H Total Protein 6.1 L Albumin 2.3 L Blood Type Antibody Screen 04/17/18 04/17/18 04/17/18 06:10 19:55 19:55 Creatine Kinase Cancelled 142 CK-MB (CK-2) Troponin I 0.089 04/17/18 04/18/18 04/18/18 19:55 02:10 02:10 Creatine Kinase 106 CK-MB (CK-2) 1.20 1.26 Troponin I 0.055 0.032 Impressions: Abdomen Ultrasound 04/17/18 00:19 IMPRESSION: 1. Gallbladder sludge with stones. Nuclear medicine hepatobiliary scan may help better delineate. 2. Right-sided renal cyst 3. Otherwise unremarkable ultrasound of the abdomen for acute pathology. Abdomen/Pelvis CT 04/17/18 02:35 IMPRESSION: Partially imaged rounded consolidation involving the right lower lobe which is significantly increased in size compared to the prior. This may represent an enlarging pulmonary mass or pneumonia. Layering hyperdensity within the gallbladder, which may represent stones or sludge. TECHNICAL DOCUMENTATION: Quality ID # 436: Final reports with documentation of one or more dose reduction techniques (e.g., Automated exposure control, adjustment of the mA and/or kV according to patient size, use of iterative reconstruction technique) 2010 [employer]- All Rights Reserved Chest X-Ray 04/17/18 07:00 IMPRESSION: Interval line modification. Assessment & Plan - Diagnosis (1) Pneumonia Qualifiers: Pneumonia type: due to unspecified organism Laterality: right Lung location: middle lobe of lung Qualified Code(s): J18.1 - Lobar pneumonia, unspecified organism Is this a current diagnosis for this admission?: Yes Plan: Possible PNA vs consolidation from immune response vs progression of disease. Agree w/ rx for pneumonia, cont at present. Pt is clinically improving (2) Malignant neoplasm of lung Qualifiers: Laterality: right Lung location: middle lobe of lung Qualified Code(s): C34.2 - Malignant neoplasm of middle lobe, bronchus or lung Is this a current diagnosis for this admission?: Yes Plan: Recurrent R lung ca, plan for continued clinical trial as outpt once pt improves. (3) Acute kidney injury Is this a current diagnosis for this admission?: Yes Plan: Acute renal dysfxn likely multifactorial from infection, hypotension, sepsis response. Cont hydration. (4) Elevated bilirubin Is this a current diagnosis for this admission?: Yes Plan: Maybe related to one of the clinical trial drugs, should improve over time - Time Time Spent with patient: 35 or more minutes - Inpatient Certification Based on my medical assessment, after consideration of the patient's comorbidities, presenting symptoms, or acuity I expect that the services needed warrant INPATIENT care.: Yes I certify that my determination is in accordance with my understanding of Medicare's requirements for reasonable and necessary INPATIENT services [42 CFR 412.3e].: Yes Medical Necessity: Need For IV Fluids, Need For Continuous Telemetry Monitoring , Need for IV Antibiotics, Risk of Complication if Not Cared For in Hospital
--- NOTE | 2018-04-18 08:58 | EKG REPORT ---
SEVERITY:- ABNORMAL ECG - EXTREME TACHYCARDIA WITH WIDE COMPLEX, NO FURTHER RHYTHM ANALYSIS ATTEMPTED : Confirmed on behalf of: Shaan Macias 18-Apr-2018 08:57:34
--- NOTE | 2018-04-18 09:00 | EKG REPORT ---
SEVERITY:- ABNORMAL ECG - WIDE COMPLEX TACHYCARDIA, CONSIDER A FLUTTER WITH 2:1 CONDUCTION VS V TACH RBBB AND LAFB : Confirmed on behalf of: Shaan Macias 18-Apr-2018 08:59:42
[2018-04-18] MEDS: GUAIFENESIN 600 MG TABLET.SA PO SCH ×2 (09:18→23:04)
--- NOTE | 2018-04-18 13:37 | PDOC CONSULTATION ---
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 Initially was treated as an outpatient with antibiotics but did not respond. Was recently put on a study drug -immunotherapy for his recurrent cancer of the lungs. Initial evaluations including a noncontrasted CT of the chest shows enlarging lesion suggestive of Right lower lobe-likely postobstructive pneumonia. He was put on BiPAP and and begun on IV fluids and antibiotics and is currently better in the ICU.Is making good amounts of urine with no obstructive features. Labs and medications were reviewed with the patient. His breathing is a whole lot better. He has had no more fever or chills. No history of any bleeding issues. Past Medical History Cardiac Medical History: Reports: Hypertension-primary Denies: Coronary Artery Disease, Myocardial Infarction Pulmonary Medical History: Reports: Chronic Obstructive Pulmonary Disease (COPD) Denies: Asthma, Bronchitis, Pneumonia Neurological Medical History: Denies: Seizures Renal/ Medical History: Reports: Chronic Kidney Disease Stage III, Proteinuria Malignancy Medical History: Reports: Lung Cancer Musculoskeltal Medical History: Denies: Arthritis Psychiatric Medical History: Denies: Depression Social History Lives with: Family Smoking Status: Former Smoker Last Time Smoked: 1994 Frequency of Alcohol Use: None Hx Recreational Drug Use: No Hx Prescription Drug Abuse: No Family History Parental Family History Reviewed: Yes - Negative for ESRD Children Family History Reviewed: No Sibling(s) Family History Reviewed.: No Medication/Allergy Home Medications: Atenolol [Tenormin 50 mg Tablet] 50 mg PO DAILY 04/17/18 Atorvastatin Calcium [Lipitor 40 mg Tablet] 40 mg PO QHS 04/17/18 Oxycodone HCl [Oxy-Ir 5 mg Tablet] 5 mg PO Q12HP PRN 04/17/18 Valsartan/Hydrochlorothiazide [Valsartan-Hctz 320-25 mg Tab] 1 tab PO DAILY 01/28 Allergies/Adverse Reactions: No Known Allergies Allergy (Verified 04/27/14 21:43) Review of Systems Constitutional: PRESENT: chills, fatigue, fever(s), weakness. ABSENT: headache( s), night sweats Nose, Mouth, and Throat: ABSENT: mouth pain, sore throat Cardiovascular: PRESENT: dyspnea on exertion. ABSENT: chest pain, edema, orthropnea Gastrointestinal: ABSENT: abdominal pain, constipation, diarrhea, dysphagia, heartburn, hematemesis, hematochezia, nausea, vomiting Genitourinary: ABSENT: difficulty urinating, dysuria, hematuria Musculoskeletal: ABSENT: back pain Integumentary: ABSENT: lesions, pruritus, rash Neurological: ABSENT: confusion, convulsions, focal weakness, frequent falls, lack of coordination, syncope Hematologic/Lymphatic: ABSENT: easy bleeding, easy bruising, lymphadenopathy Physical Exam Vital Signs: Temp Pulse Resp BP Pulse Ox 97.5 F 88 21 H 114/68 99 04/18/18 12:00 04/18/18 12:00 04/18/18 12:00 04/18/18 12:00 04/18/18 12:00 Intake & Output 04/17/18 04/18/18 04/19/18 06:59 06:59 06:59 Intake Total 3070 1240 Output Total 860 Balance 2210 1240 Weight 98.6 kg General appearance: PRESENT: no acute distress Eye exam: PRESENT: EOMI, PERRLA Mouth exam: PRESENT: moist, neck supple Neck exam: ABSENT: lymphadenopathy, meningismus, tenderness, thyromegaly, tracheal deviation Respiratory exam: PRESENT: clear to auscultation jim, crackles. ABSENT: rhonchi Cardiovascular exam: PRESENT: +S1, +S2, systolic murmur GI/Abdominal exam: PRESENT: normal bowel sounds, soft. ABSENT: organomegaly, tenderness Extremities exam: ABSENT: pedal edema Neurological exam: PRESENT: alert, awake, oriented to person, oriented to place , oriented to time Psychiatric exam: PRESENT: appropriate affect Skin exam: ABSENT: cyanosis, erythema, mottled, rash Results Laboratory Results: 04/18/18 07:10 04/18/18 07:10 04/17/18 04/17/18 04/17/18 08:05 18:35 19:55 WBC 20.6 H RBC 3.21 L Hgb 8.9 L Hct 27.1 L MCV 84 MCH 27.7 MCHC 32.9 RDW 18.1 H Plt Count 106 L Seg Neutrophils % Lymphocytes % Monocytes % Eosinophils % Basophils % Absolute Neutrophils Absolute Lymphocytes Absolute Monocytes Absolute Eosinophils Absolute Basophils Sodium 140.4 Potassium 5.1 H Chloride 110 H Carbon Dioxide 16 L Anion Gap 14 BUN 52 H Creatinine 2.68 H Est GFR ( Amer) 28 L Est GFR (Non-Af Amer) 24 L Glucose 141 H Calcium 9.0 Magnesium 2.0 Total Bilirubin 7.1 H AST 64 H ALT 39 Alkaline Phosphatase 174 H Total Protein 6.1 L Albumin 2.3 L Blood Type O POSITIVE Antibody Screen NEGATIVE 04/17/18 04/18/18 04/18/18 19:55 07:10 07:10 WBC 19.8 H 19.8 H RBC 3.23 L 3.05 L Hgb 9.0 L 8.6 L Hct 27.3 L 25.8 L MCV 85 85 MCH 27.9 28.1 MCHC 33.0 33.1 RDW 17.7 H 18.6 H Plt Count 109 L 106 L Seg Neutrophils % Not Reportable Not Reportable Lymphocytes % Not Reportable Not Reportable Monocytes % Not Reportable Not Reportable Eosinophils % Not Reportable Not Reportable Basophils % Not Reportable Not Reportable Absolute Neutrophils Not Reportable Not Reportable Absolute Lymphocytes Not Reportable Not Reportable Absolute Monocytes Not Reportable Not Reportable Absolute Eosinophils Not Reportable Not Reportable Absolute Basophils Not Reportable Not Reportable Sodium 140.4 Potassium 4.3 Chloride 111 H Carbon Dioxide 19 L Anion Gap 10 BUN 50 H Creatinine 2.32 H Est GFR ( Amer) 34 L Est GFR (Non-Af Amer) 28 L Glucose 217 H Calcium 9.1 Magnesium Total Bilirubin 6.1 H AST 60 H ALT 32 Alkaline Phosphatase 160 H Total Protein 5.7 L Albumin 2.2 L Blood Type Antibody Screen 04/17/18 04/17/18 04/17/18 06:10 19:55 19:55 Creatine Kinase Cancelled 142 CK-MB (CK-2) Troponin I 0.089 04/17/18 04/18/18 04/18/18 19:55 02:10 02:10 Creatine Kinase 106 CK-MB (CK-2) 1.20 1.26 Troponin I 0.055 0.032 04/18/18 04/18/18 07:10 07:10 Creatine Kinase 91 CK-MB (CK-2) 1.49 Troponin I 0.017 Impressions: Abdomen Ultrasound 04/17/18 00:19 IMPRESSION: 1. Gallbladder sludge with stones. Nuclear medicine hepatobiliary scan may help better delineate. 2. Right-sided renal cyst 3. Otherwise unremarkable ultrasound of the abdomen for acute pathology. Abdomen/Pelvis CT 04/17/18 02:35 IMPRESSION: Partially imaged rounded consolidation involving the right lower lobe which is significantly increased in size compared to the prior. This may represent an enlarging pulmonary mass or pneumonia. Layering hyperdensity within the gallbladder, which may represent stones or sludge. TECHNICAL DOCUMENTATION: Quality ID # 436: Final reports with documentation of one or more dose reduction techniques (e.g., Automated exposure control, adjustment of the mA and/or kV according to patient size, use of iterative reconstruction technique) 2010 [employer]- All Rights Reserved Chest X-Ray 04/17/18 07:00 IMPRESSION: Interval line modification. Assessment & Plan - Diagnosis (1) Septic shock Plan: Currently has responded to conservative measures including IV fluids and IV antibiotics. Secondary to obstructive pneumonia from his advancing and recurring Cancer of the lungs. Patient recently was immunocompromised further with immunotherapy which has now been held. (2) Acute kidney injury Is this a current diagnosis for this admission?: Yes Plan: Nonoliguric. ATN from septic shock. Initial admission creatinine was 3.2 as compared to baseline of around 2 when I last saw him 3 months ago in my office. Patient currently normotensive with the appropriate fluid resuscitation and antibiotics. Did not need any pressors. Continue current lines of management including fluid.I will continue to monitor. Patient currently is on IV cefepime , levofloxacin and vancomycin which is being renally adjusted by pharmacy. No indications for renal replacements currently. (3) Malignant neoplasm of lung Qualifiers: Laterality: right Lung location: middle lobe of lung Qualified Code(s): C34.2 - Malignant neoplasm of middle lobe, bronchus or lung Is this a current diagnosis for this admission?: Yes Plan: With now features suggestive of postobstructive pneumonia. As per heme oncology. (4) Pneumonia Qualifiers: Pneumonia type: due to unspecified organism Laterality: right Lung location: middle lobe of lung Qualified Code(s): J18.1 - Lobar pneumonia, unspecified organism Is this a current diagnosis for this admission?: Yes Plan: Postobstructive. On antibiotics. Patient clinically responding. (5) Thrombocytopenia Is this a current diagnosis for this admission?: Yes Plan: Chronic. (6) Cystic kidney disease Plan: Being monitored as an outpatient. (7) Anemia Qualifiers: Other causes of anemia: other cause, not classified Is this a current diagnosis for this admission?: Yes Plan: As per heme-oncology. (8) Proteinuria Plan: Stable. Monitor as an outpatient.
[2018-04-18] MEDS: POLYETHYLENE GLYCOL 3350 POWDER 17 GM/1 PACKET PO SCH (13:45)
--- NOTE | 2018-04-18 14:03 | CONSULTATION REPORT E ---
Consultation Report NAME: MEG MONTGOMERY : 1945 AGE: 73Y DATE: 04/17/2018 608 A TO: CLAUDIA OMER M.D. FROM: SADIE MCCRAY M.D. Requesting Physician REASON FOR CONSULTATION: Atrial fibrillation with rapid ventricular response, new onset. The patient was seen at 9 p.m. on 04/17/2018. HISTORY OF PRESENT ILLNESS: The patient is on BiPAP in the ICU and is able to give some degree of history. He is a 73-year-old -Greek male with known history of lung cancer with recurrence and suspected to have post-obstructive pneumonia in the right middle lobe and right lower lobe hypertension and acute on chronic kidney disease, admitted initially to the telemetry unit and subsequently transferred to the ICU since his blood pressure was borderline low. The nurses said that he sat up in the bed and suddenly went into atrial flutter with rapid ventricular response. His heart rate went up to 210 and subsequently his heart rate came down to 160. His blood pressure was like anywhere from 91 systolic to 105 systolic. The patient was asymptomatic, denied any increase in his shortness of breath. There is no chest pain or discomfort. There are no palpitations. The patient does have some orthopnea, but no PND. The patient denies such symptoms in the past and he does not feel his palpitations. The patient was given initially adenosine, which slowed the heart down and we could see some flutter waves, though not typical flutter. Subsequently, the patient's heart rate went up to 210 and the patient has been bolused with amiodarone 150 mg and started on an amiodarone drip and he is at 33.1 mL per minute of amiodarone. We also gave him digoxin 0.125 IV push x1 and verapamil 5 mg IV push x1. Subsequently, the patient converted to sinus tachycardia. The patient denies any dizziness or syncope. PAST MEDICAL HISTORY: Positive for history of hypertension and history of COPD. The patient was diagnosed with lung cancer and CT scan of the abdomen and pelvis with IV contrast on 02/2018 showed numerous bilateral pulmonary nodules progressive in size, largest in the left lower lobe. The patient also subsequently had a right upper lobectomy about a year ago. His chest x-ray in the emergency room showed a new dense consolidation in the right middle and lower lobe worrisome for post-obstructive pneumonia, and also, the patient had a right hilar mass/tumor from the previous CT scan done in February of 2018. He also has a history of chronic kidney disease, but this kidney function is worsened. He has a history of hypertension. There is no history of diabetes mellitus. There is no history of coronary artery disease, [place], or congestive heart failure. There is no prior history of atrial flutter or fibrillation. There are no TIA or CVA symptoms. There is no history of diabetes mellitus. PAST SURGICAL HISTORY: Positive for right upper lobectomy. ALLERGIES: The patient has no known allergies. SOCIAL HISTORY: The patient is a former smoker, does not smoke any more. DISPOSITION: The patient is a FULL CODE. His is the surrogate healthcare decision maker. MEDICATIONS: 1. Tylenol 975 mg p.o. x1. 2. He did receive adenosine 6 mg IV push x2. 3. Amiodarone bolus and amiodarone drip. 4. Baclofen 5 mg p.o. q. 8 hours p.r.n. 5. Cefepime 1 g in 15 mL IV daily at bedtime. 6. He did get digoxin 0.125 mg IV push x1. 7. Mucinex 600 mg p.o. q. 12 hours. 8. Heparin 5000 units subcutaneously q. 8 hours. 9. Atrovent 0.5 mg nebulizer treatment q. 3 hours p.r.n. 10. Ipratropium albuterol sulfate 3 mL nebulizer treatment q. 4 hours p.r.n. 11. Normal saline 500 mL IV bolus. 12. He had received a total of 2.5 L of normal saline. He is also on normal saline at 30 mL per hour. 13. Xopenex 1.25 mg nebulizer treatment q. 3 hours. 14. Levaquin 750 mg in 150 mL IV x1 and every 48 hours. 15. Prednisone 60 mg IV q. 6 hours Solu-Medrol. 16. Zofran 4 mg IV x1. 17. Vancomycin 1800 mg IV x1 and 750 mg vancomycin IV piggyback q. 6 a.m. 18. He did receive verapamil 5 mg IV push x1. REVIEW OF SYSTEMS: CONSTITUTIONAL: He complains of fever, chills, and rigors and generalized fatigue and weakness. HEAD: Denies headaches or head injury. EYES: No history of amblyopia or diplopia. No history of amaurosis fugax. EARS: No history of hearing loss. No history of tinnitus. No history of recurrent ear infections. NOSE: No history of nosebleeds. No history of hay fever. No history of nasal polyps. MOUTH: No altered taste sensation. No ulcers in the mouth. No bleeding from the gums. THROAT: No odynophagia. No dysphagia. No recurrent sore throats. SKIN: No skin rashes. No skin lesions. No pruritus. No yellowish discoloration of the skin. No psoriasis. LUNGS: History of COPD present. Recent cough, nonproductive of sputum. He is thought to have post-obstructive pneumonia in the right middle lobe and right lower lobe. He has multiple pulmonary nodules. He has a history of lung cancer. There is no hemoptysis. There is no wheezing. There is no history of sleep apnea. There is no pleuritic chest pain. CARDIAC: History of hypertension present. No history of coronary artery disease. No history of prior cardiac arrhythmia. No history of congestive heart failure. He does have orthopnea, but no PND, no leg edema. No evidence of syncope. No history of atrial fibrillation in the past. ENDOCRINE: No history of diabetes mellitus. No history of thyroid disease. No history of polydipsia or polyuria. No heat or cold intolerance. MUSCULOSKELETAL: Denies arthritis or collagen vascular disease. GASTROINTESTINAL: No history of GERD. No history of peptic ulcer disease. No history of GI bleed. No history of fatty food intolerance. No history of cirrhosis. No history of altered bowel movements. METABOLIC: Denies hyperlipidemia or gout. The patient is mildly obese. RENAL: History of chronic kidney disease, at present has worsened. He has no symptoms of UTI. No hematuria, pyuria or dysuria. CENTRAL NERVOUS SYSTEM: No history of TIA or CVA. No history of headaches, migraines, or seizures. PSYCHIATRIC: No history of anxiety or depression. No history of suicidal ideation. No history of homicidal ideation. VASCULAR: No cough or buttock claudication. No history of DVT. HEMATOLOGICAL: No history of bleeding diathesis. No history of clotting disorders. The patient does appear to be anemic, most likely secondary to anemia of chronic disease. PHYSICAL EXAMINATION: VITAL SIGNS: On examination, at present after conversion, the patient shows sinus tachycardia with AVCs, rate of 101 beats per minute. His temperature is 98.6 degrees Fahrenheit. His blood pressure is 105/56, respirations are 20 per minute, patient on BiPAP. O2 saturations are 100% on 6 L nasal O2. HEAD: Atraumatic, normocephalic. EYES: Pupils are equal, round, regular, reactive to light and accommodation. Extraocular movements are normal. There is no conjunctival pallor. There is no scleral icterus. EARS: Tympanic membranes are intact. External auditory canals are clear. NOSE: There is no deviated nasal septum. There is no inflammation of the nasal mucous membrane. MOUTH: Mucous membranes of the mouth are moist. Tongue is moist. There are no ulcers. There is no bleeding from the gums. THROAT: There is no redness of the oropharynx. There are no exudates. SKIN: There are no skin rashes. There is no petechiae or ecchymosis. There are no skin lesions. NECK: Supple. There is no JVD. Carotids are equal. There is no bruit. There is no lymphadenopathy. There is no goiter. Trachea is central. LUNGS: Coarse crackles and rhonchi in the right middle lobe and right lower lobe. There is diminished air entry and prolonged exploration elsewhere. There are no rales or CHF. HEART: S1 and S2 are heard. S1 is of variable intensity. There is no S3 gallop. There is no S4 gallop. There is systolic murmur left sternal border of the apex. There is no rub. ABDOMEN: Soft, nontender, slightly obese. There is no hepatosplenomegaly. Bowel sounds are well heard. There is no tender area or masses. EXTREMITIES: Femorals are diminished. There are no femoral bruits. Leg pulses are diminished. There is no pedal edema. There is no DVT or cellulitis. There is no calf tenderness. CENTRAL NERVOUS SYSTEM: The patient is conscious, awake, alert, oriented x3 with no focal deficits. PSYCHIATRIC: The patient's judgment and insight are intact. His affect is normal. DIAGNOSTIC STUDIES: The patient's EKG shows atrial flutter with rapid ventricular response and right bundle branch block pattern. The patient's chest x-ray shows large opacity of the right lower lung field, moderate interstitial markings, moderate right lung volume, normal cardiac silhouette, right tubular central line tip at the cavoatrial junction. The patient's abdominal ultrasound shows gallbladder sludge with stones, nuclear . Hepatobiliary scan may help better determine right-sided renal cyst, otherwise unremarkable ultrasound for acute pathology. The patient's abdomen and pelvis CT shows there is partial imaging round reconsolidation within the right lower lobe, which measures 10 x 7.9 cm where a previously seen pulmonary mass was. There is layering hyperdensity within the gallbladder and the liver. Pancreas and adrenal glands are unremarkable. Bilateral renal cysts are noted. There is no evidence of nephrolithiasis or hydronephrosis. There is no intraperitoneal free air. There are atherosclerotic calcifications and effusions of the abdominal aorta. The stomach, small bowel and appendix are unremarkable. A penile prosthesis was noted. The urinary bladder and prostate gland are unremarkable. There is multilevel spondylosis. The patient's white count is 19,800, hemoglobin is 9, hematocrit is 27.3, and platelet count is 109,000. The patient's pro-time is 18.1, INR is 1.43, PTT is 38. The patient's sodium is 140.4, potassium is 5.1, earlier on it was 5.3. The patient's chloride is 110, CO2 is 16. The patient's BUN is 52, creatinine is 2.68. GFR is reduced at 28 mL. Glucose is 141. The patient's total bilirubin is 7.1. His direct bilirubin is 6.1. His AST is elevated at 64, his ALT is 39, and his Alk phos is 174. His troponin I was 0.089 and 0.055. His albumin is 2.3, total protein is 6.1. His ABG showed a pH of 7.37, PCO2 was low at 32, PO2 is 93.9, O2 sats are 97% on FiO2 of 30%. IMPRESSION: 1. Atrial flutter, paroxysmal, with rapid ventricular response and right bundle branch block pattern converted to sinus tachycardia on amiodarone. Continue amiodarone. At present, will not start anticoagulation since this is a short episode of atrial flutter. Also, the patient's platelet is low and the patient has lung malignancy. 2. Post-obstructive pneumonia, right middle lobe and right lower lobe. 3. Lung cancer recurrence. 4. Hypertension. 5. Mild hyperkalemia. 6. Chronic kidney disease stage 4. 7. COPD. RECOMMENDATION: Continue CPAP. Continue IV amiodarone. Would check liver function test and thyroid function test later on. Continue his antibiotics for his pneumonia. Would recommend using Xopenex instead of albuterol in view of the patient's propensity to go back into atrial flutter/fibrillation. NOTE: The patient was seen at 9 p.m. and 1 hour was spent on the patient with more than 50% of the time spent in direct patient care. NOTE: Medical decision making is of high complexity. His medications have been reviewed. Discussed with the attending physician on the case and the nurse taking care of the patient in the ICU. Dr. Macias will follow the patient in the a.m. DICTATING PHYSICIAN: CLAUDIA OMER M.D. [id number] PHY#: [id number] ID: [id number] JOB#: [id number] ACCT: [id number] cc:CLAUDIA OMER M.D. >
--- NOTE | 2018-04-18 20:03 | PDOC PROGRESS REPORT ---
Subjective Progress Note for:: 04/18/18 Subjective:: Patient seems to be doing better with gradual improvement. Pt is denying any chest arm or neck discomfort. Patient denying any PND, orthopnea. Patient denied any sustained palpitations, dizziness, syncope, near syncope. Patient denying any fever chills. Patient denying any other significant discomfort. Patient is maintaining sinus rhythm. Review of systems: Rest review of systems negative. Medications: Medications have been reviewed. Reason For Visit: POST-OBSTRUCTIVE PNEUMONIA, H/O RUL CANCER Physical Exam Vital Signs: Temp Pulse Resp BP Pulse Ox 97.5 F 83 21 H 118/81 99 04/18/18 18:00 04/18/18 18:00 04/18/18 18:00 04/18/18 18:00 04/18/18 18:00 Intake & Output 04/17/18 04/18/18 04/19/18 06:59 06:59 06:59 Intake Total 3070 1340 Output Total 860 600 Balance 2210 740 Weight 98.6 kg Exam: GENERAL: well-nourished and in no acute distress. Alert and oriented x3 HEAD: Atraumatic, normocephalic. EYES: Pupils equal round and reactive to light, extraocular movements intact, sclera anicteric, conjunctiva are normal. ENT: TMs normal, nares patent, oropharynx clear without exudates. Moist mucous membranes. No oral ulcerations or bleeding gums noted NECK: supple without lymphadenopathy. Trachea is central. No cervical or axillary lymphadenopathy noted. Carotids are 2+, JVD WNL LUNGS: Respiration seems nonlabored, no significant accessory muscle action noted. Bibasilar fine crackles noted right more than left. Mild right basal dullness noted. Occasional scattered wheezing noted especially on right side. CHEST: Palpation of the chest wall shows no significant chest wall tenderness. HEART: [place], No PSH, 1/6 SANTY aortic area, 1/6 fernández systolic murmur mitral area, no rubs, no gallops. ABDOMEN: Soft, no significant tenderness appreciated, normoactive bowel sounds. No guarding, no rebound. No rigidity noted . No masses appreciated. EXTREMITIES: Pedal pulses are 1-2+, no calf tenderness noted. No clubbing or cyanosis. 1+ pedal edema noted NEUROLOGICAL: Focused neurological exam showed no significant neurologic deficit. Normal speech, no focal weakness appreciated. PSYCH: Normal mood, normal affect. Judgment and insight within normal limits. SKIN: No significant ecchymosis, skin is noted to be warm. MUSCULOSKELETAL EXAM: No significant acute joint swelling noted. Results Laboratory Results: 04/18/18 07:10 04/18/18 07:10 04/17/18 04/17/18 04/18/18 19:55 19:55 07:10 WBC 19.8 H RBC 3.23 L Hgb 9.0 L Hct 27.3 L MCV 85 MCH 27.9 MCHC 33.0 RDW 17.7 H Plt Count 109 L Seg Neutrophils % Not Reportable Lymphocytes % Not Reportable Monocytes % Not Reportable Eosinophils % Not Reportable Basophils % Not Reportable Absolute Neutrophils Not Reportable Absolute Lymphocytes Not Reportable Absolute Monocytes Not Reportable Absolute Eosinophils Not Reportable Absolute Basophils Not Reportable Sodium 140.4 140.4 Potassium 5.1 H 4.3 Chloride 110 H 111 H Carbon Dioxide 16 L 19 L Anion Gap 14 10 BUN 52 H 50 H Creatinine 2.68 H 2.32 H Est GFR ( Amer) 28 L 34 L Est GFR (Non-Af Amer) 24 L 28 L Glucose 141 H 217 H Calcium 9.0 9.1 Magnesium 2.0 Total Bilirubin 7.1 H 6.1 H AST 64 H 60 H ALT 39 32 Alkaline Phosphatase 174 H 160 H Total Protein 6.1 L 5.7 L Albumin 2.3 L 2.2 L 04/18/18 07:10 WBC 19.8 H RBC 3.05 L Hgb 8.6 L Hct 25.8 L MCV 85 MCH 28.1 MCHC 33.1 RDW 18.6 H Plt Count 106 L Seg Neutrophils % Not Reportable Lymphocytes % Not Reportable Monocytes % Not Reportable Eosinophils % Not Reportable Basophils % Not Reportable Absolute Neutrophils Not Reportable Absolute Lymphocytes Not Reportable Absolute Monocytes Not Reportable Absolute Eosinophils Not Reportable Absolute Basophils Not Reportable Sodium Potassium Chloride Carbon Dioxide Anion Gap BUN Creatinine Est GFR ( Amer) Est GFR (Non-Af Amer) Glucose Calcium Magnesium Total Bilirubin AST ALT Alkaline Phosphatase Total Protein Albumin 04/17/18 04/17/18 04/17/18 06:10 19:55 19:55 Creatine Kinase Cancelled 142 CK-MB (CK-2) Troponin I 0.089 04/17/18 04/18/1804/18/18 19:55 02:10 02:10 Creatine Kinase 106 CK-MB (CK-2) 1.20 1.26 Troponin I 0.055 0.032 04/18/18 04/18/18 07:10 07:10 Creatine Kinase 91 CK-MB (CK-2) 1.49 Troponin I 0.017 Impressions: Abdomen Ultrasound 04/17/18 00:19 IMPRESSION: 1. Gallbladder sludge with stones. Nuclear medicine hepatobiliary scan may help better delineate. 2. Right-sided renal cyst 3. Otherwise unremarkable ultrasound of the abdomen for acute pathology. Abdomen/Pelvis CT 04/17/18 02:35 IMPRESSION: Partially imaged rounded consolidation involving the right lower lobe which is significantly increased in size compared to the prior. This may represent an enlarging pulmonary mass or pneumonia. Layering hyperdensity within the gallbladder, which may represent stones or sludge. TECHNICAL DOCUMENTATION: Quality ID # 436: Final reports with documentation of one or more dose reduction techniques (e.g., Automated exposure control, adjustment of the mA and/or kV according to patient size, use of iterative reconstruction technique) 2010 [employer]- All Rights Reserved Chest X-Ray 04/17/18 07:00 IMPRESSION: Interval line modification. Assessment & Plan - Diagnosis (1) Atrial flutter Qualifiers: Atrial flutter type: atypical Qualified Code(s): I48.4 - Atypical atrial flutter Is this a current diagnosis for this admission?: Yes (3) Acute renal failure Qualifiers: Acute renal failure type: unspecified Qualified Code(s): N17.9 - Acute kidney failure, unspecified Is this a current diagnosis for this admission?: Yes (4) Elevated bilirubin Is this a current diagnosis for this admission?: Yes (5) Malignant neoplasm of lung Qualifiers: Laterality: right Lung location: middle lobe of lung Qualified Code(s): C34.2 - Malignant neoplasm of middle lobe, bronchus or lung Is this a current diagnosis for this admission?: Yes (6) Pneumonia Qualifiers: Pneumonia type: due to unspecified organism Laterality: right Lung location: middle lobe of lung Qualified Code(s): J18.1 - Lobar pneumonia, unspecified organism Is this a current diagnosis for this admission?: Yes - Notes Notes: switch to po amiodarone. Atrial flutter: Patient converted to sinus rhythm on IV amiodarone. Will switch to p.o. amiodarone. Pneumonia: Continue broad-spectrum antibiotic as you are doing. Proteinuria: Patient being well managed by other physician. Acute renal failure: It seems renal functions are gradually improving. Elevated bilirubin: Currently stable. Other physicians are following it. Malignant neoplasm of the lung: Oncology following the patient. We will continue to follow because of heart rhythm problem. Will review 2D echocardiogram results if performed earlier. - Time Time with patient: 15-25 minutes - More than 50% of the time spent coordinating care, discussing management plans with involved caregivers. Management plans discussed with involved personnels. Medical decision making was of moderate to high complexity, patient's has multiple comorbidities. Medications reviewed and adjusted accordingly: Yes
[2018-04-18] MEDS: DEXTROSE 5%-WATER 500 ML with AMIODARONE HCL 900 MG IV PRN ×2 (20:41)
--- NOTE | 2018-04-18 21:25 | PDOC PROGRESS REPORT ---
Subjective Progress Note for:: 04/18/18 Subjective:: Patient was seen by the bedside he was felt slightly better, he had episode of wide complex tachycardia/atrial flutter started on amiodarone drip, he complains of hiccough unfortunately chlorpromazine interact with amiodarone Reason For Visit: POST-OBSTRUCTIVE PNEUMONIA, H/O RUL CANCER Physical Exam Vital Signs: Temp Pulse Resp BP Pulse Ox 98.1 F 86 21 H 118/81 99 04/18/18 20:00 04/18/18 20:00 04/18/18 18:00 04/18/18 18:00 04/18/18 18:00 Intake & Output 04/17/18 04/18/18 04/19/18 06:59 06:59 06:59 Intake Total 3070 2840 Output Total 860 600 Balance 2210 2240 Weight 98.6 kg General appearance: PRESENT: no acute distress Respiratory exam: PRESENT: clear to auscultation jim Cardiovascular exam: PRESENT: +S1, +S2 GI/Abdominal exam: PRESENT: soft Neurological exam: PRESENT: alert Results Laboratory Results: 04/18/18 07:10 04/18/18 07:10 04/18/18 04/18/18 07:10 07:10 WBC 19.8 H RBC 3.05 L Hgb 8.6 L Hct 25.8 L MCV 85 MCH 28.1 MCHC 33.1 RDW 18.6 H Plt Count 106 L Seg Neutrophils % Not Reportable Lymphocytes % Not Reportable Monocytes % Not Reportable Eosinophils % Not Reportable Basophils % Not Reportable Absolute Neutrophils Not Reportable Absolute Lymphocytes Not Reportable Absolute Monocytes Not Reportable Absolute Eosinophils Not Reportable Absolute Basophils Not Reportable Sodium 140.4 Potassium 4.3 Chloride 111 H Carbon Dioxide 19 L Anion Gap 10 BUN 50 H Creatinine 2.32 H Est GFR ( Amer) 34 L Est GFR (Non-Af Amer) 28 L Glucose 217 H Calcium 9.1 Total Bilirubin 6.1 H AST 60 H ALT 32 Alkaline Phosphatase 160 H Total Protein 5.7 L Albumin 2.2 L 04/17/18 04/17/18 04/17/18 06:10 19:55 19:55 Creatine Kinase Cancelled 142 CK-MB (CK-2) Troponin I 0.089 04/17/18 04/18/18 04/18/18 19:55 02:10 02:10 Creatine Kinase 106 CK-MB (CK-2) 1.20 1.26 Troponin I 0.055 0.032 04/18/18 04/18/18 07:10 07:10 Creatine Kinase 91 CK-MB (CK-2) 1.49 Troponin I 0.017 Impressions: Abdomen Ultrasound 04/17/18 00:19 IMPRESSION: 1. Gallbladder sludge with stones. Nuclear medicine hepatobiliary scan may help better delineate. 2. Right-sided renal cyst 3. Otherwise unremarkable ultrasound of the abdomen for acute pathology. Abdomen/Pelvis CT 04/17/18 02:35 IMPRESSION: Partially imaged rounded consolidation involving the right lower lobe which is significantly increased in size compared to the prior. This may represent an enlarging pulmonary mass or pneumonia. Layering hyperdensity within the gallbladder, which may represent stones or sludge. TECHNICAL DOCUMENTATION: Quality ID # 436: Final reports with documentation of one or more dose reduction techniques (e.g., Automated exposure control, adjustment of the mA and/or kV according to patient size, use of iterative reconstruction technique) 2010 [employer]- All Rights Reserved Chest X-Ray 04/17/18 07:00 IMPRESSION: Interval line modification. Assessment & Plan - Diagnosis (1) Sepsis Qualifiers: Sepsis type: sepsis due to unspecified organism Qualified Code(s): A41.9 - Sepsis, unspecified organism Is this a current diagnosis for this admission?: Yes (2) Acute kidney injury Is this a current diagnosis for this admission?: Yes (3) Malignant neoplasm of lung Qualifiers: Laterality: right Lung location: middle lobe of lung Qualified Code(s): C34.2 - Malignant neoplasm of middle lobe, bronchus or lung Is this a current diagnosis for this admission?: Yes (4) Hypotension Qualifiers: Hypotension type: unspecified hypotension type Qualified Code(s): I95.9 - Hypotension, unspecified Is this a current diagnosis for this admission?: Yes (5) Pneumonia Qualifiers: Pneumonia type: due to unspecified organism Laterality: right Lung location: middle lobe of lung Qualified Code(s): J18.1 - Lobar pneumonia, unspecified organism Is this a current diagnosis for this admission?: Yes (6) Anemia Qualifiers: Other causes of anemia: other cause, not classified Is this a current diagnosis for this admission?: Yes (7) Thrombocytopenia Is this a current diagnosis for this admission?: Yes (8) Atrial flutter Qualifiers: Atrial flutter type: atypical Qualified Code(s): I48.4 - Atypical atrial flutter Is this a current diagnosis for this admission?: Yes (9) Cystic kidney disease Is this a current diagnosis for this admission?: Yes (10) Elevated bilirubin Is this a current diagnosis for this admission?: Yes (11) Septic shock Is this a current diagnosis for this admission?: Yes - Plan Summary Plan Summary: Patient will continue all present treatment including amiodarone, IV antibiotic , IV Solu-Medrol, IV fluids he was seen today by oncology, nephrology, cardiology
[2018-04-18] MEDS: CEFEPIME 1 GM/D5W RTU 1 GM/50 ML RTUPB IV SCH (23:03)
[2018-04-19] MEDS: LEVALBUTEROL HCL NEB 1.25 MG/3 ML AMPUL NEB SCH ×5 (02:08→20:53)
[2018-04-19 05:19] LABS: WHITE BLOOD COUNT 22.8 10^3/uL (4.0-10.5)
[2018-04-19 05:23] LABS: HEMATOCRIT 25.8 % (37.9-51.0); HEMOGLOBIN 8.4 g/dL (13.5-17.0); MEAN CORPUSCULAR HEMOGLOBIN 27.9 pg (27.0-33.4); MEAN CORPUSCULAR HGB CONC 32.8 g/dL (32.0-36.0); MEAN CORPUSCULAR VOLUME 85 fl (80-97); PLATELET COUNT 115 10^3/uL (150-450); RED BLOOD COUNT 3.03 10^6/uL (4.35-5.55); RED CELL DISTRIBUTION WIDTH 18.9 % (11.5-14.0)
[2018-04-19 05:33] LABS: ALBUMIN 2.3 g/dL (3.5-5.0); ASPARTATE AMINO TRANSFERASE 72 U/L (17-59); BILIRUBIN,DIRECT 3.7 mg/dL (0.0-0.4); POTASSIUM 3.9 mmol/L (3.6-5.0); TOTAL PROTEIN 5.9 g/dL (6.3-8.2)
[2018-04-19 05:41] LABS: ABSOLUTE LYMPHOCYTES# (MANUAL) 0.7 10^3/uL (0.5-4.7); ABSOLUTE MONOCYTES # (MANUAL) 0.9 10^3/uL (0.1-1.4); ANISOCYTOSIS 1+; BASOPHILS % (MANUAL) 0 % (0-2); EOSINOPHILS % (MANUAL) 1 % (0-6); LYMPHOCYTES % (MANUAL) 3 % (13-45); MONOCYTES % (MANUAL) 4 % (3-13); POLYCHROMASIA 1+; SEGMENTED NEUTROPHILS % (MAN) 92 % (42-78); TOTAL CELLS COUNTED 100
[2018-04-19 05:42] LABS: PLATELET COMMENT ADEQUATE
[2018-04-19] MEDS: METHYLPREDNISOLONE INJ 125 MG/2 ML SDV IV SCH ×3 (05:42→22:13)
[2018-04-19] MEDS: HEPARIN SOD (PORCINE) 5,000 UNIT/ML 1 ML SYRINGE SUBCUT SCH ×3 (05:43→22:13)
[2018-04-19] MEDS: NORMAL SALINE 1000 ML 1,000 ML IV PRN (05:43)
[2018-04-19] MEDS ORDERED: VANCOMYCIN HCL 1,250 MG in DEXTROSE 5%-WATER 250 ML IV SCH (06:00)
[2018-04-19 06:06] LABS: ALANINE AMINOTRANSFERASE 43 U/L (21-72); ALKALINE PHOSPHATASE 211 U/L (38-126); ANION GAP 13 (5-19); BILIRUBIN,TOTAL 4.3 mg/dL (0.2-1.3); BLOOD UREA NITROGEN 47 mg/dL (7-20); CALCIUM 9.4 mg/dL (8.4-10.2); CARBON DIOXIDE 16 mmol/L (22-30); CHLORIDE 115 mmol/L (98-107); GLUCOSE 185 mg/dL (75-110); SODIUM 144.3 mmol/L (137-145)
--- NOTE | 2018-04-19 08:50 | PDOC PROGRESS REPORT ---
Subjective Progress Note for:: 04/19/18 Subjective:: Patient yesterday still had significant shortness of breath, felt little bit of restlessness after getting Xopenex. Would like to forego the treatment of Xopenex late at night. Today planning on getting him up in a chair. Reason For Visit: POST-OBSTRUCTIVE PNEUMONIA, H/O RUL CANCER Physical Exam Vital Signs: Temp Pulse Resp BP Pulse Ox 98.2 F 79 19 102/61 99 04/19/18 05:10 04/19/18 08:33 04/19/18 08:33 04/19/18 06:26 04/19/18 08:33 Intake & Output 04/18/18 04/19/18 04/20/18 06:59 06:59 06:59 Intake Total 3120 3940 Output Total 860 1075 Balance 2260 2865 Weight 98.6 kg 103.1 kg General appearance: PRESENT: no acute distress, well-developed, well-nourished Head exam: PRESENT: atraumatic, normocephalic Eye exam: PRESENT: conjunctiva pink, EOMI, PERRLA. ABSENT: scleral icterus Ear exam: PRESENT: normal external ear exam Mouth exam: PRESENT: moist, tongue midline Neck exam: ABSENT: carotid bruit, JVD, lymphadenopathy, thyromegaly Respiratory exam: PRESENT: clear to auscultation jim. ABSENT: rales, rhonchi, wheezes Cardiovascular exam: PRESENT: RRR. ABSENT: diastolic murmur, rubs, systolic murmur Pulses: PRESENT: normal dorsalis pedis pul Vascular exam: PRESENT: normal capillary refill GI/Abdominal exam: PRESENT: normal bowel sounds, soft. ABSENT: distended, guarding, mass, organolmegaly, rebound, tenderness Rectal exam: PRESENT: deferred Extremities exam: PRESENT: full ROM. ABSENT: calf tenderness, clubbing, pedal edema Neurological exam: PRESENT: alert, awake, oriented to person, oriented to place , oriented to time, oriented to situation, CN II-XII grossly intact. ABSENT: motor sensory deficit Psychiatric exam: PRESENT: appropriate affect, normal mood. ABSENT: homicidal ideation, suicidal ideation Skin exam: PRESENT: dry, intact, warm. ABSENT: cyanosis, rash Results Laboratory Results: 04/19/18 04:54 04/19/18 04:54 04/19/18 04/19/18 04:54 04:54 WBC 22.8 H RBC 3.03 L Hgb 8.4 L Hct 25.8 L MCV 85 MCH 27.9 MCHC 32.8 RDW 18.9 H Plt Count 115 L Seg Neutrophils % Not Reportable Lymphocytes % Not Reportable Monocytes % Not Reportable Eosinophils % Not Reportable Basophils % Not Reportable Absolute Neutrophils Not Reportable Absolute Lymphocytes Not Reportable Absolute Monocytes Not Reportable Absolute Eosinophils Not Reportable Absolute Basophils Not Reportable Sodium 144.3 Potassium 3.9 Chloride 115 H Carbon Dioxide 16 L Anion Gap 13 BUN 47 H Creatinine 1.86 H Est GFR ( Amer) 43 L Est GFR (Non-Af Amer) 36 L Glucose 185 H Calcium 9.4 Total Bilirubin 4.3 H AST 72 H ALT 43 Alkaline Phosphatase 211 H Total Protein 5.9 L Albumin 2.3 L 04/17/18 04/17/18 04/17/18 06:10 19:55 19:55 Creatine Kinase Cancelled 142 CK-MB (CK-2) Troponin I 0.089 04/17/18 04/18/18 04/18/18 19:55 02:10 02:10 Creatine Kinase 106 CK-MB (CK-2) 1.20 1.26 Troponin I 0.055 0.032 04/18/18 04/18/18 07:10 07:10 Creatine Kinase 91 CK-MB (CK-2) 1.49 Troponin I 0.017 Impressions: Abdomen Ultrasound 04/17/18 00:19 IMPRESSION: 1. Gallbladder sludge with stones. Nuclear medicine hepatobiliary scan may help better delineate. 2. Right-sided renal cyst 3. Otherwise unremarkable ultrasound of the abdomen for acute pathology. Abdomen/Pelvis CT 04/17/18 02:35 IMPRESSION: Partially imaged rounded consolidation involving the right lower lobe which is significantly increased in size compared to the prior. This may represent an enlarging pulmonary mass or pneumonia. Layering hyperdensity within the gallbladder, which may represent stones or sludge. TECHNICAL DOCUMENTATION: Quality ID # 436: Final reports with documentation of one or more dose reduction techniques (e.g., Automated exposure control, adjustment of the mA and/or kV according to patient size, use of iterative reconstruction technique) 2010 [employer]- All Rights Reserved Chest X-Ray 04/17/18 07:00 IMPRESSION: Interval line modification. Assessment & Plan - Diagnosis (1) Pneumonia Qualifiers: Pneumonia type: due to unspecified organism Laterality: right Lung location: middle lobe of lung Qualified Code(s): J18.1 - Lobar pneumonia, unspecified organism Is this a current diagnosis for this admission?: Yes Plan: Continue with cefepime and Levaquin, however cultures are negative now for almost 72 hours, DC vancomycin. (2) Malignant neoplasm of lung Qualifiers: Laterality: right Lung location: middle lobe of lung Qualified Code(s): C34.2 - Malignant neoplasm of middle lobe, bronchus or lung Is this a current diagnosis for this admission?: Yes Plan: Plan for further treatment as an outpatient. As noted above, lung changes may be related to immunotherapy treatment complications, tomorrow depending on lung status we may order noncontrasted CT of the chest. Continue with IV steroids. (3) Acute kidney injury Is this a current diagnosis for this admission?: Yes Plan: Improved, Dr. Billy is following up. (4) Elevated bilirubin Is this a current diagnosis for this admission?: Yes Plan: May be treatment related complication, continue to monitor, improving - Time Time Spent with patient: 35 or more minutes - Inpatient Certification Based on my medical assessment, after consideration of the patient's comorbidities, presenting symptoms, or acuity I expect that the services needed warrant INPATIENT care.: Yes I certify that my determination is in accordance with my understanding of Medicare's requirements for reasonable and necessary INPATIENT services [42 CFR 412.3e].: Yes Medical Necessity: Need For Continuous Telemetry Monitoring, Need for IV Antibiotics, Risk of Complication if Not Cared For in Hospital
[2018-04-19] MEDS: POLYETHYLENE GLYCOL 3350 POWDER 17 GM/1 PACKET PO SCH (09:11)
[2018-04-19] MEDS: GUAIFENESIN 600 MG TABLET.SA PO SCH ×2 (09:16→22:11)
[2018-04-19] MEDS: LEVOFLOXACIN 750 MG/D5W RTU 750 MG/150 ML RTUPB IV SCH (09:47)
[2018-04-19] MEDS ORDERED: NORMAL SALINE 1000 ML 1,000 ML IV PRN (10:16)
[2018-04-19] MEDS: BACLOFEN 10 MG TABLET PO PRN ×2 (15:34→22:08)
--- NOTE | 2018-04-19 15:54 | PDOC PROGRESS REPORT ---
Subjective Progress Note for:: 04/19/18 Subjective:: Currently is laying in bed still using a oxygen via nc. He is not on any pressors, only normal saline at 130mL an hour. He denies fevers or chills. He also is not SOB when he has the oxygen on. Also denies chest pain, d/n/v. Reason For Visit: POST-OBSTRUCTIVE PNEUMONIA, H/O RUL CANCER Physical Exam Vital Signs: Temp Pulse Resp BP Pulse Ox 97.5 F 90 25 H 129/58 H 96 04/19/18 12:00 04/19/18 14:28 04/19/18 15:00 04/19/18 14:56 04/19/18 14:28 Intake & Output 04/18/18 04/19/18 04/20/18 06:59 06:59 06:59 Intake Total 3270 3940 Output Total 860 1075 Balance 2410 2865 Weight 98.6 kg 103.1 kg General appearance: PRESENT: no acute distress, well-developed, well-nourished Mouth exam: PRESENT: moist, neck supple Neck exam: ABSENT: JVD, tracheal deviation Respiratory exam: PRESENT: crackles. ABSENT: accessory muscle use, clear to auscultation jim, rales, rhonchi, wheezes Cardiovascular exam: PRESENT: +S1, +S2, systolic murmur GI/Abdominal exam: PRESENT: normal bowel sounds, soft. ABSENT: organomegaly, tenderness Extremities exam: ABSENT: pedal edema, tenderness, +1 edema, +2 edema Musculoskeletal exam: PRESENT: normal inspection. ABSENT: tenderness Neurological exam: PRESENT: alert, awake, oriented to person, oriented to place , oriented to time, oriented to situation Skin exam: PRESENT: dry, intact. ABSENT: cyanosis, warm Results Laboratory Results: 04/19/18 04:54 04/19/18 04:54 04/19/18 04/19/18 04:54 04:54 WBC 22.8 H RBC 3.03 L Hgb 8.4 L Hct 25.8 L MCV 85 MCH 27.9 MCHC 32.8 RDW 18.9 H Plt Count 115 L Seg Neutrophils % Not Reportable Lymphocytes % Not Reportable Monocytes % Not Reportable Eosinophils % Not Reportable Basophils % Not Reportable Absolute Neutrophils Not Reportable Absolute Lymphocytes Not Reportable Absolute Monocytes Not Reportable Absolute Eosinophils Not Reportable Absolute Basophils Not Reportable Sodium 144.3 Potassium 3.9 Chloride 115 H Carbon Dioxide 16 L Anion Gap 13 BUN 47 H Creatinine 1.86 H Est GFR ( Amer) 43 L Est GFR (Non-Af Amer) 36 L Glucose 185 H Calcium 9.4 Total Bilirubin 4.3 H AST 72 H ALT 43 Alkaline Phosphatase 211 H Total Protein 5.9 L Albumin 2.3 L 04/17/18 04/17/18 04/17/18 06:10 19:55 19:55 Creatine Kinase Cancelled 142 CK-MB (CK-2) Troponin I 0.089 04/17/18 04/18/18 04/18/18 19:55 02:10 02:10 Creatine Kinase 106 CK-MB (CK-2) 1.20 1.26 Troponin I 0.055 0.032 04/18/18 04/18/18 07:10 07:10 Creatine Kinase 91 CK-MB (CK-2) 1.49 Troponin I 0.017 Impressions: Abdomen Ultrasound 04/17/18 00:19 IMPRESSION: 1. Gallbladder sludge with stones. Nuclear medicine hepatobiliary scan may help better delineate. 2. Right-sided renal cyst 3. Otherwise unremarkable ultrasound of the abdomen for acute pathology. Abdomen/Pelvis CT 04/17/18 02:35 IMPRESSION: Partially imaged rounded consolidation involving the right lower lobe which is significantly increased in size compared to the prior. This may represent an enlarging pulmonary mass or pneumonia. Layering hyperdensity within the gallbladder, which may represent stones or sludge. TECHNICAL DOCUMENTATION: Quality ID # 436: Final reports with documentation of one or more dose reduction techniques (e.g., Automated exposure control, adjustment of the mA and/or kV according to patient size, use of iterative reconstruction technique) 2010 [employer]- All Rights Reserved Chest X-Ray 04/17/18 07:00 IMPRESSION: Interval line modification. Assessment & Plan - Diagnosis (1) Septic shock Is this a current diagnosis for this admission?: Yes Plan: improving, decreasing fluids to 75mL hour to prevent fluid overload. (2) Acute kidney injury Is this a current diagnosis for this admission?: Yes Plan: looks to be at baseline (3) Hypotension Qualifiers: Hypotension type: unspecified hypotension type Qualified Code(s): I95.9 - Hypotension, unspecified Is this a current diagnosis for this admission?: Yes Plan: improved, decreasing normal saline to 75mL an hour (4) Pneumonia Qualifiers: Pneumonia type: due to unspecified organism Laterality: right Lung location: middle lobe of lung Qualified Code(s): J18.1 - Lobar pneumonia, unspecified organism Is this a current diagnosis for this admission?: Yes Plan: currently on antibiotics cefepime and levofloxacin (5) Anemia Qualifiers: Other causes of anemia: other cause, not classified Is this a current diagnosis for this admission?: Yes Plan: per heme-onc (6) Lung cancer Qualifiers: Laterality: right Lung location: unspecified part of lung Qualified Code( s): C34.91 - Malignant neoplasm of unspecified part of right bronchus or lung Plan: managed by heme-onc (7) Cystic kidney disease Is this a current diagnosis for this admission?: Yes Plan: followed as outpatient (8) Proteinuria Plan: stable (9) Thrombocytopenia Is this a current diagnosis for this admission?: Yes Plan: chronic
[2018-04-19] MEDS ORDERED: BISACODYL 5 MG TABEC PO ONE (19:00)
[2018-04-19] MEDS: AMIODARONE HCL 200 MG TABLET PO SCH (20:17)
--- NOTE | 2018-04-19 21:27 | PDOC PROGRESS REPORT ---
Subjective Progress Note for:: 04/19/18 Subjective:: Patient was seen by the bedside, There is improvement of the kidney function Reason For Visit: POST-OBSTRUCTIVE PNEUMONIA, H/O RUL CANCER Physical Exam Vital Signs: Temp Pulse Resp BP Pulse Ox 97.5 F 86 28 H 160/84 H 96 04/19/18 19:59 04/19/18 20:00 04/19/18 21:00 04/19/18 20:57 04/19/18 16:00 Intake & Output 04/18/18 04/19/18 04/20/18 06:59 06:59 06:59 Intake Total 3270 3940 Output Total 860 1075 650 Balance 2410 2865 -650 Weight 98.6 kg 103.1 kg General appearance: PRESENT: no acute distress Eye exam: PRESENT: PERRLA Respiratory exam: PRESENT: clear to auscultation jim Cardiovascular exam: PRESENT: +S1, +S2 GI/Abdominal exam: PRESENT: soft Neurological exam: PRESENT: alert Results Laboratory Results: 04/19/18 04:54 04/19/18 04:54 04/19/18 04/19/18 04:54 04:54 WBC 22.8 H RBC 3.03 L Hgb 8.4 L Hct 25.8 L MCV 85 MCH 27.9 MCHC 32.8 RDW 18.9 H Plt Count 115 L Seg Neutrophils % Not Reportable Lymphocytes % Not Reportable Monocytes % Not Reportable Eosinophils % Not Reportable Basophils % Not Reportable Absolute Neutrophils Not Reportable Absolute Lymphocytes Not Reportable Absolute Monocytes Not Reportable Absolute Eosinophils Not Reportable Absolute Basophils Not Reportable Sodium 144.3 Potassium 3.9 Chloride 115 H Carbon Dioxide 16 L Anion Gap 13 BUN 47 H Creatinine 1.86 H Est GFR ( Amer) 43 L Est GFR (Non-Af Amer) 36 L Glucose 185 H Calcium 9.4 Total Bilirubin 4.3 H AST 72 H ALT 43 Alkaline Phosphatase 211 H Total Protein 5.9 L Albumin 2.3 L 04/17/18 04/17/18 04/17/18 06:10 19:55 19:55 Creatine Kinase Cancelled 142 CK-MB (CK-2) Troponin I 0.089 04/17/18 04/18/18 04/18/18 19:55 02:10 02:10 Creatine Kinase 106 CK-MB (CK-2) 1.20 1.26 Troponin I 0.055 0.032 04/18/18 04/18/18 07:10 07:10 Creatine Kinase 91 CK-MB (CK-2) 1.49 Troponin I 0.017 Impressions: Abdomen Ultrasound 04/17/18 00:19 IMPRESSION: 1. Gallbladder sludge with stones. Nuclear medicine hepatobiliary scan may help better delineate. 2. Right-sided renal cyst 3. Otherwise unremarkable ultrasound of the abdomen for acute pathology. Abdomen/Pelvis CT 04/17/18 02:35 IMPRESSION: Partially imaged rounded consolidation involving the right lower lobe which is significantly increased in size compared to the prior. This may represent an enlarging pulmonary mass or pneumonia. Layering hyperdensity within the gallbladder, which may represent stones or sludge. TECHNICAL DOCUMENTATION: Quality ID # 436: Final reports with documentation of one or more dose reduction techniques (e.g., Automated exposure control, adjustment of the mA and/or kV according to patient size, use of iterative reconstruction technique) 2010 [employer]- All Rights Reserved Chest X-Ray 04/17/18 07:00 IMPRESSION: Interval line modification. Assessment & Plan - Diagnosis (1) Sepsis Qualifiers: Sepsis type: sepsis due to unspecified organism Qualified Code(s): A41.9 - Sepsis, unspecified organism Is this a current diagnosis for this admission?: Yes (2) Acute kidney injury Is this a current diagnosis for this admission?: Yes (3) Malignant neoplasm of lung Qualifiers: Laterality: right Lung location: middle lobe of lung Qualified Code(s): C34.2 - Malignant neoplasm of middle lobe, bronchus or lung Is this a current diagnosis for this admission?: Yes (4) Hypotension Qualifiers: Hypotension type: unspecified hypotension type Qualified Code(s): I95.9 - Hypotension, unspecified Is this a current diagnosis for this admission?: Yes (5) Pneumonia Qualifiers: Pneumonia type: due to unspecified organism Laterality: right Lung location: middle lobe of lung Qualified Code(s): J18.1 - Lobar pneumonia, unspecified organism Is this a current diagnosis for this admission?: Yes (6) Anemia Qualifiers: Other causes of anemia: other cause, not classified Is this a current diagnosis for this admission?: Yes (7) Thrombocytopenia Is this a current diagnosis for this admission?: Yes (8) Atrial flutter Qualifiers: Atrial flutter type: atypical Qualified Code(s): I48.4 - Atypical atrial flutter Is this a current diagnosis for this admission?: Yes (9) Cystic kidney disease Is this a current diagnosis for this admission?: Yes (10) Elevated bilirubin Is this a current diagnosis for this admission?: Yes (11) Septic shock Is this a current diagnosis for this admission?: Yes
[2018-04-19] MEDS: CEFEPIME 1 GM/D5W RTU 1 GM/50 ML RTUPB IV SCH (22:11)
[2018-04-20] MEDS ORDERED: ALTEPLASE INJ 2 MG VIAL (CATH CLEARANCE) INJ SCH (05:00)
[2018-04-20] MEDS: AMIODARONE HCL 200 MG TABLET PO SCH (05:16)
[2018-04-20] MEDS: METHYLPREDNISOLONE INJ 125 MG/2 ML SDV IV SCH ×3 (05:17→21:51)
[2018-04-20 05:54] LABS: HEMATOCRIT 26.3 % (37.9-51.0); HEMOGLOBIN 8.5 g/dL (13.5-17.0); MEAN CORPUSCULAR HEMOGLOBIN 27.5 pg (27.0-33.4); MEAN CORPUSCULAR HGB CONC 32.1 g/dL (32.0-36.0); MEAN CORPUSCULAR VOLUME 86 fl (80-97); PLATELET COUNT 132 10^3/uL (150-450); RED BLOOD COUNT 3.08 10^6/uL (4.35-5.55); WHITE BLOOD COUNT 17.4 10^3/uL (4.0-10.5)
[2018-04-20 06:06] LABS: ALANINE AMINOTRANSFERASE 70 U/L (21-72); ALBUMIN 2.4 g/dL (3.5-5.0); ALKALINE PHOSPHATASE 208 U/L (38-126); ANION GAP 11 (5-19); ASPARTATE AMINO TRANSFERASE 124 U/L (17-59); BILIRUBIN,DIRECT 2.7 mg/dL (0.0-0.4); BILIRUBIN,TOTAL 3.3 mg/dL (0.2-1.3); BLOOD UREA NITROGEN 47 mg/dL (7-20); CALCIUM 9.8 mg/dL (8.4-10.2); CARBON DIOXIDE 18 mmol/L (22-30); CHLORIDE 116 mmol/L (98-107); GLUCOSE 132 mg/dL (75-110); POTASSIUM 4.7 mmol/L (3.6-5.0); SODIUM 145.4 mmol/L (137-145)
[2018-04-20 06:13] LABS: ABSOLUTE MONOCYTES # (MANUAL) 0.5 10^3/uL (0.1-1.4); ABSOLUTE NEUTROPHILS# (MANUAL) 15.8 10^3/uL (1.7-8.2); BAND NEUTROPHILS % (MANUAL) 2 % (3-5); BASOPHILS % (MANUAL) 0 % (0-2); EOSINOPHILS % (MANUAL) 0 % (0-6); LYMPHOCYTES % (MANUAL) 6 % (13-45); MONOCYTES % (MANUAL) 3 % (3-13); SEGMENTED NEUTROPHILS % (MAN) 89 % (42-78); TOTAL CELLS COUNTED 100
[2018-04-20 06:15] LABS: ANISOCYTOSIS 2+; BURR CELLS SLIGHT; OVALOCYTES SLIGHT; PLATELET COMMENT ADEQUATE; POIKILOCYTOSIS SLIGHT
[2018-04-20] MEDS: HEPARIN SOD (PORCINE) 5,000 UNIT/ML 1 ML SYRINGE SUBCUT SCH ×3 (06:37→21:52)
--- NOTE | 2018-04-20 08:24 | PDOC PROGRESS REPORT ---
Subjective Progress Note for:: 04/20/18 Subjective:: Pt doing better today, yesterday got up to the bedside commode and did not feel same level of SOB/LEWIS. Did not get up to chair yet, put orders in for that and PT. Reason For Visit: POST-OBSTRUCTIVE PNEUMONIA, H/O RUL CANCER Physical Exam Vital Signs: Temp Pulse Resp BP Pulse Ox 98 F 89 23 H 129/78 H 100 04/20/18 00:00 04/19/18 20:53 04/20/18 06:30 04/20/18 06:15 04/20/18 06:30 Intake & Output 04/19/18 04/20/18 04/21/18 06:59 06:59 06:59 Intake Total 3990 200 Output Total 1075 1475 Balance 2915 -1275 Weight 103.1 kg 103.5 kg General appearance: PRESENT: no acute distress, well-developed, well-nourished Head exam: PRESENT: atraumatic, normocephalic Eye exam: PRESENT: conjunctiva pink, EOMI, PERRLA. ABSENT: scleral icterus Ear exam: PRESENT: normal external ear exam Mouth exam: PRESENT: moist, tongue midline Neck exam: ABSENT: carotid bruit, JVD, lymphadenopathy, thyromegaly Respiratory exam: PRESENT: clear to auscultation jim. ABSENT: rales, rhonchi, wheezes Cardiovascular exam: PRESENT: RRR. ABSENT: diastolic murmur, rubs, systolic murmur Pulses: PRESENT: normal dorsalis pedis pul Vascular exam: PRESENT: normal capillary refill GI/Abdominal exam: PRESENT: normal bowel sounds, soft. ABSENT: distended, guarding, mass, organolmegaly, rebound, tenderness Rectal exam: PRESENT: deferred Extremities exam: PRESENT: full ROM. ABSENT: calf tenderness, clubbing, pedal edema Neurological exam: PRESENT: alert, awake, oriented to person, oriented to place , oriented to time, oriented to situation, CN II-XII grossly intact. ABSENT: motor sensory deficit Psychiatric exam: PRESENT: appropriate affect, normal mood. ABSENT: homicidal ideation, suicidal ideation Skin exam: PRESENT: dry, intact, warm. ABSENT: cyanosis, rash Results Laboratory Results: 04/20/18 05:00 04/20/18 05:00 04/20/18 04/20/18 05:00 05:00 WBC 17.4 H RBC 3.08 L Hgb 8.5 L Hct 26.3 L MCV 86 MCH 27.5 MCHC 32.1 RDW 19.0 H Plt Count 132 L Seg Neutrophils % Not Reportable Lymphocytes % Not Reportable Monocytes % Not Reportable Eosinophils % Not Reportable Basophils % Not Reportable Absolute Neutrophils Not Reportable Absolute Lymphocytes Not Reportable Absolute Monocytes Not Reportable Absolute Eosinophils Not Reportable Absolute Basophils Not Reportable Sodium 145.4 H Potassium 4.7 Chloride 116 H Carbon Dioxide 18 L Anion Gap 11 BUN 47 H Creatinine 1.57 H Est GFR ( Amer) 53 L Est GFR (Non-Af Amer) 44 L Glucose 132 H Calcium 9.8 Magnesium 2.1 Total Bilirubin 3.3 H AST 124 H ALT 70 Alkaline Phosphatase 208 H Total Protein 6.0 L Albumin 2.4 L 04/17/18 04/17/18 04/17/18 06:10 19:55 19:55 Creatine Kinase Cancelled 142 CK-MB (CK-2) Troponin I 0.089 04/17/18 04/18/18 04/18/18 19:55 02:10 02:10 Creatine Kinase 106 CK-MB (CK-2) 1.20 1.26 Troponin I 0.055 0.032 04/18/18 04/18/18 07:10 07:10 Creatine Kinase 91 CK-MB (CK-2) 1.49 Troponin I 0.017 Impressions: Abdomen Ultrasound 04/17/18 00:19 IMPRESSION: 1. Gallbladder sludge with stones. Nuclear medicine hepatobiliary scan may help better delineate. 2. Right-sided renal cyst 3. Otherwise unremarkable ultrasound of the abdomen for acute pathology. Abdomen/Pelvis CT 04/17/18 02:35 IMPRESSION: Partially imaged rounded consolidation involving the right lower lobe which is significantly increased in size compared to the prior. This may represent an enlarging pulmonary mass or pneumonia. Layering hyperdensity within the gallbladder, which may represent stones or sludge. TECHNICAL DOCUMENTATION: Quality ID # 436: Final reports with documentation of one or more dose reduction techniques (e.g., Automated exposure control, adjustment of the mA and/or kV according to patient size, use of iterative reconstruction technique) 2010 [employer]- All Rights Reserved Chest X-Ray 04/17/18 07:00 IMPRESSION: Interval line modification. Assessment & Plan - Diagnosis (1) Pneumonia Qualifiers: Pneumonia type: due to unspecified organism Laterality: right Lung location: middle lobe of lung Qualified Code(s): J18.1 - Lobar pneumonia, unspecified organism Is this a current diagnosis for this admission?: Yes Plan: Improving, cont current atbx and can further taper in next 24 hours (2) Malignant neoplasm of lung Qualifiers: Laterality: right Lung location: middle lobe of lung Qualified Code(s): C34.2 - Malignant neoplasm of middle lobe, bronchus or lung Is this a current diagnosis for this admission?: Yes Plan: Plan outpt care. Con't current steroids, once we see that pt is up and moving around, transition to oral pred at 1mg/kg/day and pt will need 6 wk taper (3) Acute kidney injury Is this a current diagnosis for this admission?: Yes Plan: Improved, cr seems to be close to baseline, appreciate nephrology follow up (4) Elevated bilirubin Is this a current diagnosis for this admission?: Yes Plan: Improved, likely 2nd to immunoRx given as outpt - Time Time Spent with patient: 35 or more minutes - Inpatient Certification Based on my medical assessment, after consideration of the patient's comorbidities, presenting symptoms, or acuity I expect that the services needed warrant INPATIENT care.: Yes I certify that my determination is in accordance with my understanding of Medicare's requirements for reasonable and necessary INPATIENT services [42 CFR 412.3e].: Yes Medical Necessity: Need For Continuous Telemetry Monitoring, Need for Nebulizer Therapy and Monitoring of Response, Need for IV Antibiotics, Risk of Complication if Not Cared For in Hospital
[2018-04-20] MEDS: LEVALBUTEROL HCL NEB 1.25 MG/3 ML AMPUL NEB SCH ×3 (08:32→19:46)
[2018-04-20] MEDS: POLYETHYLENE GLYCOL 3350 POWDER 17 GM/1 PACKET PO SCH (09:34)
[2018-04-20] MEDS: GUAIFENESIN 600 MG TABLET.SA PO SCH ×2 (09:34→21:52)
[2018-04-20] MEDS: BACLOFEN 10 MG TABLET PO PRN (09:57)
--- NOTE | 2018-04-20 14:01 | PDOC PROGRESS REPORT ---
Subjective Progress Note for:: 04/20/18 Subjective:: Was sitting up in bed about to eat his lunch. States that he does get a sensation that food is getting stuck in his throat. Has swallow study scheduled for today. Denies increased SOB or chest pain. Denies fevers or chills. Reason For Visit: POST-OBSTRUCTIVE PNEUMONIA, H/O RUL CANCER Physical Exam Vital Signs: Temp Pulse Resp BP Pulse Ox 97.9 F 90 25 H 129/81 H 98 04/20/18 12:00 04/20/18 12:00 04/20/18 12:00 04/20/18 12:00 04/20/18 12:00 Intake & Output 04/19/18 04/20/18 04/21/18 06:59 06:59 06:59 Intake Total 3990 200 266 Output Total 1075 1475 250 Balance 2915 -1275 16 Weight 103.1 kg 103.5 kg General appearance: PRESENT: no acute distress, well-developed, well-nourished Mouth exam: PRESENT: moist, neck supple Neck exam: ABSENT: JVD Respiratory exam: PRESENT: crackles, rhonchi. ABSENT: accessory muscle use, clear to auscultation jim, rales, wheezes Cardiovascular exam: PRESENT: +S1, +S2, systolic murmur GI/Abdominal exam: PRESENT: normal bowel sounds, soft. ABSENT: organomegaly, tenderness Extremities exam: PRESENT: pedal edema - -trace+. ABSENT: tenderness, +1 edema , +2 edema Musculoskeletal exam: PRESENT: normal inspection. ABSENT: tenderness Neurological exam: PRESENT: alert, awake, oriented to person, oriented to place , oriented to time, oriented to situation Skin exam: PRESENT: dry, intact, warm. ABSENT: cyanosis Results Laboratory Results: 04/20/18 05:00 04/20/18 05:00 04/20/18 04/20/18 05:00 05:00 WBC 17.4 H RBC 3.08 L Hgb 8.5 L Hct 26.3 L MCV 86 MCH 27.5 MCHC 32.1 RDW 19.0 H Plt Count 132 L Seg Neutrophils % Not Reportable Lymphocytes % Not Reportable Monocytes % Not Reportable Eosinophils % Not Reportable Basophils % Not Reportable Absolute Neutrophils Not Reportable Absolute Lymphocytes Not Reportable Absolute Monocytes Not Reportable Absolute Eosinophils Not Reportable Absolute Basophils Not Reportable Sodium 145.4 H Potassium 4.7 Chloride 116 H Carbon Dioxide 18 L Anion Gap 11 BUN 47 H Creatinine 1.57 H Est GFR ( Amer) 53 L Est GFR (Non-Af Amer) 44 L Glucose 132 H Calcium 9.8 Magnesium 2.1 Total Bilirubin 3.3 H AST 124 H ALT 70 Alkaline Phosphatase 208 H Total Protein 6.0 L Albumin 2.4 L 04/17/18 04/17/18 04/17/18 06:10 19:55 19:55 Creatine Kinase Cancelled 142 CK-MB (CK-2) Troponin I 0.089 04/17/18 04/18/18 04/18/18 19:55 02:10 02:10 Creatine Kinase 106 CK-MB (CK-2) 1.20 1.26 Troponin I 0.055 0.032 04/18/18 04/18/18 07:10 07:10 Creatine Kinase 91 CK-MB (CK-2) 1.49 Troponin I 0.017 Impressions: Abdomen Ultrasound 04/17/18 00:19 IMPRESSION: 1. Gallbladder sludge with stones. Nuclear medicine hepatobiliary scan may help better delineate. 2. Right-sided renal cyst 3. Otherwise unremarkable ultrasound of the abdomen for acute pathology. Abdomen/Pelvis CT 04/17/18 02:35 IMPRESSION: Partially imaged rounded consolidation involving the right lower lobe which is significantly increased in size compared to the prior. This may represent an enlarging pulmonary mass or pneumonia. Layering hyperdensity within the gallbladder, which may represent stones or sludge. TECHNICAL DOCUMENTATION: Quality ID # 436: Final reports with documentation of one or more dose reduction techniques (e.g., Automated exposure control, adjustment of the mA and/or kV according to patient size, use of iterative reconstruction technique) 2010 [employer]- All Rights Reserved Chest X-Ray 04/17/18 07:00 IMPRESSION: Interval line modification. Assessment & Plan - Diagnosis (1) Septic shock Is this a current diagnosis for this admission?: Yes Plan: stopping all fluids (2) Acute kidney injury Is this a current diagnosis for this admission?: Yes Plan: looks to be at baseline, fluids are stopped. Currently kidneys are at a stable condition. (3) Hypotension Qualifiers: Hypotension type: unspecified hypotension type Qualified Code(s): I95.9 - Hypotension, unspecified Is this a current diagnosis for this admission?: Yes Plan: stable, stopping normal saline (4) Pneumonia Qualifiers: Pneumonia type: due to unspecified organism Laterality: right Lung location: middle lobe of lung Qualified Code(s): J18.1 - Lobar pneumonia, unspecified organism Is this a current diagnosis for this admission?: Yes Plan: currently on antibiotics cefepime and levofloxacin (5) Anemia Qualifiers: Other causes of anemia: other cause, not classified Is this a current diagnosis for this admission?: Yes Plan: per heme-onc (6) Lung cancer Qualifiers: Laterality: right Lung location: unspecified part of lung Qualified Code( s): C34.91 - Malignant neoplasm of unspecified part of right bronchus or lung Plan: managed by heme-onc (7) Cystic kidney disease Is this a current diagnosis for this admission?: Yes Plan: followed as outpatient (8) Proteinuria Plan: stable (9) Thrombocytopenia Is this a current diagnosis for this admission?: Yes Plan: chronic (10) Metabolic acidosis Plan: starting sodium bicarb 650mg qd
--- NOTE | 2018-04-20 14:41 | RADIOLOGY REPORT (SQ) ---
EXAM DESCRIPTION: BARIUM SWALLOW ESOPHAGUS COMPLETED DATE/TIME: 04/20/2018 1:53 pm REASON FOR STUDY: dysphagia COMPARISON: CT chest 02/16/2018 CT abdomen pelvis 04/17/2018 Chest films 04/17/2018, 04/16/2018 TECHNIQUE: Under fluoroscopic guidance, patient ingested effervescent granules followed by thick and thin barium. Fluoroscopic spot images and routine radiographic images acquired and stored on PACS. 12 MM BARIUM TABLET GIVEN: Yes 12 mm barium tablet did not pass into the stomach. The 12 mm barium tablet sac in the distal 3rd of the esophagus, just cephalad to the peptic stricture/hiatal hernia. Barium tablet took 30 minutes to dissolve. LIMITATIONS: None. FLUOROSCOPY TIME: FLUORO TIME: 2 minutes 45 seconds. 10 series of digital images saved to PACS. FINDINGS: NEUROMUSCULAR COORDINATION OF SWALLOW: Normal. No aspiration. ESOPHAGEAL MOTILITY: Normal peristalsis. No esophageal spasm. ESOPHAGEAL MUCOSA: No esophageal mucosal irregularity GASTRO-ESOPHAGEAL JUNCTION: Patient has a small sliding hiatal hernia. The distal 5 cm of esophagus just above the hiatal hernia has a smooth long segment narrowing from peptic disease. 12 mm barium t ablet could not pass through this area. Intermittent gastroesophageal reflux. NON-GI TRACT STRUCTURES: No significant finding. OTHER: Right lower lobe pneumonia. IMPRESSION: Small hiatal hernia, peptic stricture which impedes passage of 12 mm barium tablet Right lower lobe pneumonia COMMENT: Quality ID 145: Final reports for procedures using fluoroscopy that document radiation exp osure indices, or exposure time and number of fluorographic images (if radiation exposure indices are not available) TECHNICAL DOCUMENTATION: JOB ID: [id number] [employer]- All Rights Reserved Reading location - IP/workstation name: [facility]-[email or web address]
[2018-04-20] MEDS: SODIUM BICARBONATE 650 MG TABLET PO SCH (15:53)
[2018-04-20] MEDS: DRONEDARONE HYDROCHLORIDE 400 MG TABLET PO SCH (17:05)
--- NOTE | 2018-04-20 19:43 | PDOC PROGRESS REPORT ---
Subjective Progress Note for:: 04/20/18 Subjective:: Patient complaint of dysphagia yesterday, a barium swallow was ordered, it demonstrated stricture of the distal esophagus, this could also be a potential cause of pneumonia, consultation will be requested from GI for possible dilatation before discharge from the hospital Reason For Visit: POST-OBSTRUCTIVE PNEUMONIA, H/O RUL CANCER Physical Exam Vital Signs: Temp Pulse Resp BP Pulse Ox 97.5 F 88 20 127/66 H 100 04/20/18 16:00 04/20/18 16:00 04/20/18 18:00 04/20/18 17:55 04/20/18 18:00 Intake & Output 04/19/18 04/20/18 04/21/18 06:59 06:59 06:59 Intake Total 3990 200 736 Output Total 1075 1475 550 Balance 2915 -1275 186 Weight 103.1 kg 103.5 kg General appearance: PRESENT: no acute distress Eye exam: PRESENT: PERRLA Respiratory exam: PRESENT: rhonchi Cardiovascular exam: PRESENT: +S1, +S2 GI/Abdominal exam: PRESENT: soft Neurological exam: PRESENT: alert Results Laboratory Results: 04/20/18 05:00 04/20/18 05:00 04/20/18 04/20/18 05:00 05:00 WBC 17.4 H RBC 3.08 L Hgb 8.5 L Hct 26.3 L MCV 86 MCH 27.5 MCHC 32.1 RDW 19.0 H Plt Count 132 L Seg Neutrophils % Not Reportable Lymphocytes % Not Reportable Monocytes % Not Reportable Eosinophils % Not Reportable Basophils % Not Reportable Absolute Neutrophils Not Reportable Absolute Lymphocytes Not Reportable Absolute Monocytes Not Reportable Absolute Eosinophils Not Reportable Absolute Basophils Not Reportable Sodium 145.4 H Potassium 4.7 Chloride 116 H Carbon Dioxide 18 L Anion Gap 11 BUN 47 H Creatinine 1.57 H Est GFR ( Amer) 53 L Est GFR (Non-Af Amer) 44 L Glucose 132 H Calcium 9.8 Magnesium 2.1 Total Bilirubin 3.3 H AST 124 H ALT 70 Alkaline Phosphatase 208 H Total Protein 6.0 L Albumin 2.4 L 04/17/18 04/17/18 04/17/18 06:10 19:55 19:55 Creatine Kinase Cancelled 142 CK-MB (CK-2) Troponin I 0.089 0804/18/18 04/18/18 19:55 02:10 02:10 Creatine Kinase 106 CK-MB (CK-2) 1.20 1.26 Troponin I 0.055 0.032 04/18/18 04/18/18 07:10 07:10 Creatine Kinase 91 CK-MB (CK-2) 1.49 Troponin I 0.017 Impressions: Abdomen Ultrasound 04/17/18 00:19 IMPRESSION: 1. Gallbladder sludge with stones. Nuclear medicine hepatobiliary scan may help better delineate. 2. Right-sided renal cyst 3. Otherwise unremarkable ultrasound of the abdomen for acute pathology. Abdomen/Pelvis CT 04/17/18 02:35 IMPRESSION: Partially imaged rounded consolidation involving the right lower lobe which is significantly increased in size compared to the prior. This may represent an enlarging pulmonary mass or pneumonia. Layering hyperdensity within the gallbladder, which may represent stones or sludge. TECHNICAL DOCUMENTATION: Quality ID # 436: Final reports with documentation of one or more dose reduction techniques (e.g., Automated exposure control, adjustment of the mA and/or kV according to patient size, use of iterative reconstruction technique) 2010 [employer]- All Rights Reserved Chest X-Ray 04/17/18 07:00 IMPRESSION: Interval line modification. Esophagus X-Ray 04/20/18 00:00 IMPRESSION: Small hiatal hernia, peptic stricture which impedes passage of 12 mm barium tablet Right lower lobe pneumonia Assessment & Plan - Diagnosis (1) Sepsis Qualifiers: Sepsis type: sepsis due to unspecified organism Qualified Code(s): A41.9 - Sepsis, unspecified organism Is this a current diagnosis for this admission?: Yes (2) Acute kidney injury Is this a current diagnosis for this admission?: Yes (3) Malignant neoplasm of lung Qualifiers: Laterality: right Lung location: middle lobe of lung Qualified Code(s): C34.2 - Malignant neoplasm of middle lobe, bronchus or lung Is this a current diagnosis for this admission?: Yes (4) Hypotension Qualifiers: Hypotension type: unspecified hypotension type Qualified Code(s): I95.9 - Hypotension, unspecified Is this a current diagnosis for this admission?: Yes (5) Pneumonia Qualifiers: Pneumonia type: due to unspecified organism Laterality: right Lung location: middle lobe of lung Qualified Code(s): J18.1 - Lobar pneumonia, unspecified organism Is this a current diagnosis for this admission?: Yes (6) Anemia Qualifiers: Other causes of anemia: other cause, not classified Is this a current diagnosis for this admission?: Yes (7) Thrombocytopenia Is this a current diagnosis for this admission?: Yes (8) Atrial flutter Qualifiers: Atrial flutter type: atypical Qualified Code(s): I48.4 - Atypical atrial flutter Is this a current diagnosis for this admission?: Yes (9) Cystic kidney disease Is this a current diagnosis for this admission?: Yes (10) Elevated bilirubin Is this a current diagnosis for this admission?: Yes (11) Septic shock Is this a current diagnosis for this admission?: Yes (12) Esophageal stricture Is this a current diagnosis for this admission?: Yes Plan: GI consultation obtained
--- NOTE | 2018-04-20 20:02 | PDOC PROGRESS REPORT ---
Subjective Progress Note for:: 04/20/18 Subjective:: Patient seems to be doing better with gradual improvement. Pt is denying any chest arm or neck discomfort. Patient denying any PND, orthopnea. Patient denied any sustained palpitations, dizziness, syncope, near syncope. Patient denying any fever chills. Patient denying any other significant discomfort. Patient is maintaining sinus rhythm. Review of systems: Rest review of systems negative. Medications: Medications have been reviewed. Reason For Visit: POST-OBSTRUCTIVE PNEUMONIA, H/O RUL CANCER Physical Exam Vital Signs: Temp Pulse Resp BP Pulse Ox 97.9 F 75 25 H 125/74 97 04/20/18 08:00 04/20/18 08:34 04/20/18 10:00 04/20/18 09:14 04/20/18 10:00 Intake & Output 04/19/18 04/20/18 04/21/18 06:59 06:59 06:59 Intake Total 3990 200 Output Total 1075 1475 0 Balance 2915 -1275 0 Weight 103.1 kg 103.5 kg Exam: GENERAL: well-nourished and in no acute distress. Alert and oriented x3 HEAD: Atraumatic, normocephalic. EYES: Pupils equal round and reactive to light, extraocular movements intact, sclera anicteric, conjunctiva are normal. ENT: TMs normal, nares patent, oropharynx clear without exudates. Moist mucous membranes. No oral ulcerations or bleeding gums noted NECK: supple without lymphadenopathy. Trachea is central. No cervical or axillary lymphadenopathy noted. Carotids are 2+, JVD WNL LUNGS: Respiration seems nonlabored, no significant accessory muscle action noted. Bibasilar fine crackles and scattered right basal wheezes rales or rhonchi noted. No significant dullness noted on percussion. CHEST: Palpation of the chest wall shows no significant chest wall tenderness. HEART: Abie [employer] ANALYST, No PSH, 1/6 SANTY aortic area, 1/6 fernández systolic murmur mitral area, no rubs, no gallops. ABDOMEN: Soft, no significant tenderness appreciated, normoactive bowel sounds. No guarding, no rebound. No rigidity noted . No masses appreciated. EXTREMITIES: Pedal pulses are 1-2+, no calf tenderness noted. No clubbing or cyanosis. 1+ pedal edema noted NEUROLOGICAL: Focused neurological exam showed no significant neurologic deficit. Normal speech, no focal weakness appreciated. PSYCH: Normal mood, normal affect. Judgment and insight within normal limits. SKIN: No significant ecchymosis, skin is noted to be warm. MUSCULOSKELETAL EXAM: No significant acute joint swelling noted. Results Laboratory Results: 04/20/18 05:00 04/20/18 05:00 04/20/18 04/20/18 05:00 05:00 WBC 17.4 H RBC 3.08 L Hgb 8.5 L Hct 26.3 L MCV 86 MCH 27.5 MCHC 32.1 RDW 19.0 H Plt Count 132 L Seg Neutrophils % Not Reportable Lymphocytes % Not Reportable Monocytes % Not Reportable Eosinophils % Not Reportable Basophils % Not Reportable Absolute Neutrophils Not Reportable Absolute Lymphocytes Not Reportable Absolute Monocytes Not Reportable Absolute Eosinophils Not Reportable Absolute Basophils Not Reportable Sodium 145.4 H Potassium 4.7 Chloride 116 H Carbon Dioxide 18 L Anion Gap 11 BUN 47 H Creatinine 1.57 H Est GFR ( Amer) 53 L Est GFR (Non-Af Amer) 44 L Glucose 132 H Calcium 9.8 Magnesium 2.1 Total Bilirubin 3.3 H AST 124 H ALT 70 Alkaline Phosphatase 208 H Total Protein 6.0 L Albumin 2.4 L 04/17/18 04/17/18 04/17/18 06:10 19:55 19:55 Creatine Kinase Cancelled 142 CK-MB (CK-2) Troponin I 0.089 04/17/18 04/18/18 04/18/18 19:55 02:10 02:10 Creatine Kinase 106 CK-MB (CK-2) 1.20 1.26 Troponin I 0.055 0.032 04/18/18 04/18/18 07:10 07:10 Creatine Kinase 91 CK-MB (CK-2) 1.49 Troponin I 0.017 EKG Comments: Telemetry shows sinus rhythm without any sustained tachycardia or bradycardia Impressions: Abdomen Ultrasound 04/17/18 00:19 IMPRESSION: 1. Gallbladder sludge with stones. Nuclear medicine hepatobiliary scan may help better delineate. 2. Right-sided renal cyst 3. Otherwise unremarkable ultrasound of the abdomen for acute pathology. Abdomen/Pelvis CT 04/17/18 02:35 IMPRESSION: Partially imaged rounded consolidation involving the right lower lobe which is significantly increased in size compared to the prior. This may represent an enlarging pulmonary mass or pneumonia. Layering hyperdensity within the gallbladder, which may represent stones or sludge. TECHNICAL DOCUMENTATION: Quality ID # 436: Final reports with documentation of one or more dose reduction techniques (e.g., Automated exposure control, adjustment of the mA and/or kV according to patient size, use of iterative reconstruction technique) 2010 [employer]- All Rights Reserved Chest X-Ray 04/17/18 07:00 IMPRESSION: Interval line modification. Assessment & Plan - Diagnosis (1) Atrial flutter Qualifiers: Atrial flutter type: atypical Qualified Code(s): I48.4 - Atypical atrial flutter Is this a current diagnosis for this admission?: Yes (3) Acute renal failure Qualifiers: Acute renal failure type: unspecified Qualified Code(s): N17.9 - Acute kidney failure, unspecified Is this a current diagnosis for this admission?: Yes (4) Elevated bilirubin Is this a current diagnosis for this admission?: Yes (5) Malignant neoplasm of lung Qualifiers: Laterality: right Lung location: middle lobe of lung Qualified Code(s): C34.2 - Malignant neoplasm of middle lobe, bronchus or lung Is this a current diagnosis for this admission?: Yes (6) Pneumonia Qualifiers: Pneumonia type: due to unspecified organism Laterality: right Lung location: middle lobe of lung Qualified Code(s): J18.1 - Lobar pneumonia, unspecified organism Is this a current diagnosis for this admission?: Yes - Notes Notes: Patient switched from amiodarone to multaq at 400 p.o. twice daily this was because of liver enzyme abnormalities and history of lung problem. Atrial flutter: Started patient on multaq therapy. Monitor electrolytes and QTC. Pneumonia: Continue broad-spectrum antibiotic as you are doing. Proteinuria: Patient being well managed by other physician. Acute renal failure: It seems renal functions are gradually improving. Elevated bilirubin: Currently stable. Other physicians are following it. Malignant neoplasm of the lung: Oncology following the patient. We will continue to follow because of heart rhythm problem. - Time Time with patient: 15-25 minutes - More than 50% of the time spent coordinating care, discussing management plans with involved caregivers. Management plans discussed with involved personnels. Medical decision making was of moderate to high complexity, patient's has multiple comorbidities. Medications reviewed and adjusted accordingly: Yes
[2018-04-20] MEDS: CEFEPIME 1 GM/D5W RTU 1 GM/50 ML RTUPB IV SCH (21:52)
[2018-04-21] MEDS: BACLOFEN 10 MG TABLET PO PRN ×2 (00:58→22:31)
[2018-04-21] MEDS: METHYLPREDNISOLONE INJ 125 MG/2 ML SDV IV SCH ×2 (05:46→13:43)
[2018-04-21] MEDS: HEPARIN SOD (PORCINE) 5,000 UNIT/ML 1 ML SYRINGE SUBCUT SCH ×2 (05:46→13:42)
[2018-04-21 06:14] LABS: HEMATOCRIT 26.4 % (37.9-51.0); HEMOGLOBIN 8.7 g/dL (13.5-17.0); MEAN CORPUSCULAR HEMOGLOBIN 28.1 pg (27.0-33.4); MEAN CORPUSCULAR HGB CONC 33.2 g/dL (32.0-36.0); MEAN CORPUSCULAR VOLUME 85 fl (80-97); PLATELET COUNT 141 10^3/uL (150-450); RED BLOOD COUNT 3.12 10^6/uL (4.35-5.55); RED CELL DISTRIBUTION WIDTH 18.7 % (11.5-14.0); WHITE BLOOD COUNT 13.5 10^3/uL (4.0-10.5)
[2018-04-21 06:41] LABS: ABSOLUTE LYMPHOCYTES# (MANUAL) 0.7 10^3/uL (0.5-4.7); ABSOLUTE MONOCYTES # (MANUAL) 0.8 10^3/uL (0.1-1.4); ANISOCYTOSIS 2+; BASOPHILS % (MANUAL) 0 % (0-2); EOSINOPHILS % (MANUAL) 0 % (0-6); LYMPHOCYTES % (MANUAL) 5 % (13-45); MONOCYTES % (MANUAL) 6 % (3-13); NUCLEATED RED BLOOD CELLS 1 /100 WBC (0); PLATELET COMMENT DECREASED; POLYCHROMASIA SLIGHT; PROMYELOCYTES % (MANUAL) 1 % (0); SEGMENTED NEUTROPHILS % (MAN) 88 % (42-78); TOTAL CELLS COUNTED 100
--- NOTE | 2018-04-21 08:06 | PDOC PROGRESS REPORT ---
Subjective Progress Note for:: 04/21/18 Subjective:: Pt seems better this am, was able to get up to chair w/ minimal assist per ICU nursing, PT in room this am. Barium swallow indicated stricture so EGD planned this PM Reason For Visit: POST-OBSTRUCTIVE PNEUMONIA, H/O RUL CANCER Physical Exam Vital Signs: Temp Pulse Resp BP Pulse Ox 97.5 F 77 14 134/67 H 98 04/21/18 07:37 04/21/18 07:37 04/21/18 07:37 04/21/18 07:37 04/21/18 07:37 Intake & Output 04/20/18 04/21/18 04/22/18 06:59 06:59 06:59 Intake Total 200 786 Output Total 1475 750 Balance -1275 36 Weight 103.5 kg 104.3 kg General appearance: PRESENT: no acute distress, well-developed, well-nourished Head exam: PRESENT: atraumatic, normocephalic Eye exam: PRESENT: conjunctiva pink, EOMI, PERRLA. ABSENT: scleral icterus Ear exam: PRESENT: normal external ear exam Mouth exam: PRESENT: moist, tongue midline Neck exam: ABSENT: carotid bruit, JVD, lymphadenopathy, thyromegaly Respiratory exam: PRESENT: clear to auscultation jim. ABSENT: rales, rhonchi, wheezes Cardiovascular exam: PRESENT: RRR. ABSENT: diastolic murmur, rubs, systolic murmur Pulses: PRESENT: normal dorsalis pedis pul Vascular exam: PRESENT: normal capillary refill GI/Abdominal exam: PRESENT: normal bowel sounds, soft. ABSENT: distended, guarding, mass, organolmegaly, rebound, tenderness Rectal exam: PRESENT: deferred Extremities exam: PRESENT: full ROM. ABSENT: calf tenderness, clubbing, pedal edema Neurological exam: PRESENT: alert, awake, oriented to person, oriented to place , oriented to time, oriented to situation, CN II-XII grossly intact. ABSENT: motor sensory deficit Psychiatric exam: PRESENT: appropriate affect, normal mood. ABSENT: homicidal ideation, suicidal ideation Skin exam: PRESENT: dry, intact, warm. ABSENT: cyanosis, rash Results Laboratory Results: 04/21/18 05:40 04/20/18 05:00 04/21/18 05:40 WBC 13.5 H RBC 3.12 L Hgb 8.7 L Hct 26.4 L MCV 85 MCH 28.1 MCHC 33.2 RDW 18.7 H Plt Count 141 L Seg Neutrophils % Not Reportable Lymphocytes % Not Reportable Monocytes % Not Reportable Eosinophils % Not Reportable Basophils % Not Reportable Absolute Neutrophils Not Reportable Absolute Lymphocytes Not Reportable Absolute Monocytes Not Reportable Absolute Eosinophils Not Reportable Absolute Basophils Not Reportable 04/17/18 04/17/18 04/17/18 06:10 19:55 19:55 Creatine Kinase Cancelled 142 CK-MB (CK-2) Troponin I 0.089 04/17/18 04/18/18 04/18/18 19:55 02:10 02:10 Creatine Kinase 106 CK-MB (CK-2) 1.20 1.26 Troponin I 0.055 0.032 04/18/18 04/18/18 07:10 07:10 Creatine Kinase 91 CK-MB (CK-2) 1.49 Troponin I 0.017 Impressions: Abdomen Ultrasound 04/17/18 00:19 IMPRESSION: 1. Gallbladder sludge with stones. Nuclear medicine hepatobiliary scan may help better delineate. 2. Right-sided renal cyst 3. Otherwise unremarkable ultrasound of the abdomen for acute pathology. Abdomen/Pelvis CT 04/17/18 02:35 IMPRESSION: Partially imaged rounded consolidation involving the right lower lobe which is significantly increased in size compared to the prior. This may represent an enlarging pulmonary mass or pneumonia. Layering hyperdensity within the gallbladder, which may represent stones or sludge. TECHNICAL DOCUMENTATION: Quality ID # 436: Final reports with documentation of one or more dose reduction techniques (e.g., Automated exposure control, adjustment of the mA and/or kV according to patient size, use of iterative reconstruction technique) 2010 [employer]- All Rights Reserved Chest X-Ray 04/17/18 07:00 IMPRESSION: Interval line modification. Esophagus X-Ray 04/20/18 00:00 IMPRESSION: Small hiatal hernia, peptic stricture which impedes passage of 12 mm barium tablet Right lower lobe pneumonia Assessment & Plan - Diagnosis (1) Pneumonia Qualifiers: Pneumonia type: due to unspecified organism Laterality: right Lung location: middle lobe of lung Qualified Code(s): J18.1 - Lobar pneumonia, unspecified organism Is this a current diagnosis for this admission?: Yes Plan: Cont atbx, cx remain neg (2) Malignant neoplasm of lung Qualifiers: Laterality: right Lung location: middle lobe of lung Qualified Code(s): C34.2 - Malignant neoplasm of middle lobe, bronchus or lung Is this a current diagnosis for this admission?: Yes Plan: Further rx as outpt, will need 2 wk steroid taper as outpt (3) Acute kidney injury Is this a current diagnosis for this admission?: Yes Plan: Improved, labs pending (4) Elevated bilirubin Is this a current diagnosis for this admission?: Yes Plan: Labs pending (5) Esophageal stricture Is this a current diagnosis for this admission?: Yes Plan: Likely 2nd to reflux and hiatal hernia, unlikely 2nd to cancer or trial drugs. Plan for egd and possible dilation - Time Time Spent with patient: 35 or more minutes - Inpatient Certification Based on my medical assessment, after consideration of the patient's comorbidities, presenting symptoms, or acuity I expect that the services needed warrant INPATIENT care.: Yes I certify that my determination is in accordance with my understanding of Medicare's requirements for reasonable and necessary INPATIENT services [42 CFR 412.3e].: Yes Medical Necessity: Need For Continuous Telemetry Monitoring, Need for Nebulizer Therapy and Monitoring of Response, Need for IV Antibiotics, Risk of Complication if Not Cared For in Hospital
[2018-04-21] MEDS: LEVALBUTEROL HCL NEB 1.25 MG/3 ML AMPUL NEB SCH ×3 (08:29→20:16)
[2018-04-21] MEDS: LEVOFLOXACIN 750 MG TABLET PO SCH (08:49)
[2018-04-21] MEDS: GUAIFENESIN 600 MG TABLET.SA PO SCH ×2 (09:42→22:28)
[2018-04-21] MEDS: DRONEDARONE HYDROCHLORIDE 400 MG TABLET PO SCH ×2 (09:42→17:26)
[2018-04-21] MEDS: POLYETHYLENE GLYCOL 3350 POWDER 17 GM/1 PACKET PO SCH (09:42)
[2018-04-21] MEDS: SODIUM BICARBONATE 650 MG TABLET PO SCH (09:42)
[2018-04-21 10:02] LABS: ALANINE AMINOTRANSFERASE 101 U/L (21-72); ALBUMIN 2.4 g/dL (3.5-5.0); ALKALINE PHOSPHATASE 242 U/L (38-126); ANION GAP 10 (5-19); ASPARTATE AMINO TRANSFERASE 126 U/L (17-59); BILIRUBIN,TOTAL 2.7 mg/dL (0.2-1.3); BLOOD UREA NITROGEN 46 mg/dL (7-20); CALCIUM 9.6 mg/dL (8.4-10.2); CARBON DIOXIDE 21 mmol/L (22-30); CHLORIDE 115 mmol/L (98-107); GLUCOSE 137 mg/dL (75-110); SODIUM 146.4 mmol/L (137-145); TOTAL PROTEIN 5.8 g/dL (6.3-8.2)
--- NOTE | 2018-04-21 10:29 | XCELERA REPORT ---
[address] [address] Transthoracic Echocardiogram Report Name: MEG MONTGOMERY Age: 73 yrs Gender: Male : 1945 Patient Status: Inpatient Patient Location: ICU^[id number]^A Study Date: 04/20/2018 10:35 AM Height: 70 in Weight: 217 lb BSA: 2.2 m2 Procedure: A complete two-dimensional transthoracic echocardiogram was performed (2D, M-mode, spectral and color flow Doppler). The study was technically adequate with some images being suboptimal in quality. Reason For Study: resp distress Ordering Physician: SHAAN WESLEY Performed By: Odalys Valencia Interpretation Summary The left ventricular ejection fraction is normal. LV diastolic function could not be adequately assessed. The left ventricle is grossly normal size. There is borderline concentric left ventricular hypertrophy. Wall motion cannot be accurately commented on, but no definite regional wall motion abnormalities noted. The right ventricle is moderately dilated. The right ventricle appears to be hypertrophied The right ventricular systolic function is borderline reduced. The right atrium is mildly dilated. The left atrium is mildly dilated. There is no mitral valve stenosis. There is a trace to mild amount of mitral regurgitation There is no aortic valve stenosis There is a trace amount of aortic regurgitation There is a mild amount of tricuspid regurgitation There is moderate to severe pulmonary hypertension by echo Best estimated RVSP is approximately 60-65 mm/Hg. The aortic root is not well visualized but is probably normal size. The inferior vena cava appeared normal and decreased > 50% with respiration (RAP 5-10 mmHg) There is no pericardial effusion. MMode/2D Measurements & Calculations RVDd: 3.6 cm LVIDd: 5.8 cm FS: 44.1 % Ao root diam: 3.1 cm IVSd: 0.74 cm LVIDs: 3.2 cm EDV(Teich): 164.1 ml Ao root area: 7.4 cm2 LVPWd: 0.85 cm ESV(Teich): 41.7 ml LA dimension: 3.7 cm EF(Teich): 74.6 % Doppler Measurements & Calculations MV E max leonor: MV P1/2t max leonor: Ao V2 max: LV V1 max P.7 cm/sec 91.8 cm/sec 140.5 cm/sec 3.7 mmHg MV A max leonor: MV P1/2t: 58.2 msec Ao max PG: LV V1 max: 71.6 cm/sec MVA(P1/2t): 3.8 cm2 7.9 mmHg 95.8 cm/sec MV E/A: 1.4 MV dec slope: 462.4 cm/sec2 MV dec time: 0.19 sec PA V2 max: PI end-d leonor: TR max leonor: MV P1/2t-pr_phl: 77.5 cm/sec 192.7 cm/sec 377.3 cm/sec 58.2 msec PA max PG: TR max P.4 mmHg 57.0 mmHg Left Ventricle The left ventricle is grossly normal size. There is borderline concentric left ventricular hypertrophy. The left ventricular ejection fraction is normal. LV diastolic function could not be adequately assessed. Wall motion cannot be accurately commented on, but no definite regional wall motion abnormalities noted. Right Ventricle The right ventricle is moderately dilated. The right ventricle appears to be hypertrophied. The right ventricular systolic function is borderline reduced. Atria The right atrium is mildly dilated. The left atrium is mildly dilated. Interarterial septum not well visualized and not well dopplered. Cannot comment on ASD/PFO presence. Mitral Valve The mitral valve is grossly normal. There is no mitral valve stenosis. There is a trace to mild amount of mitral regurgitation. Aortic Valve The aortic valve is grossly normal. There is no aortic valve stenosis. There is a trace amount of aortic regurgitation. Tricuspid Valve The tricuspid valve is not well visualized, but is grossly normal. There is no tricuspid stenosis. There is a mild amount of tricuspid regurgitation. There is moderate to severe pulmonary hypertension by echo. Best estimated RVSP is approximately 60-65 mm/Hg. Pulmonic Valve The pulmonic valve is not well visualized. Great Vessels The aortic root is not well visualized but is probably normal size. The inferior vena cava appeared normal and decreased > 50% with respiration (RAP 5-10 mmHg). Effusions There is no pericardial effusion. : SHAAN WESLEY > Shaan Wesley
--- NOTE | 2018-04-21 13:39 | PDOC PROGRESS REPORT ---
Subjective Progress Note for:: 04/21/18 Subjective:: Patient was complaining of shortness of breath over the night. Today he is less short of breath. When he was transferred to the [facility] from the ICU the fluids got continued. He denies chest pain, fevers, chills Reason For Visit: POST-OBSTRUCTIVE PNEUMONIA, H/O RUL CANCER Physical Exam Vital Signs: Temp Pulse Resp BP Pulse Ox 97.3 F 88 18 140/72 H 98 04/21/18 11:44 04/21/18 11:44 04/21/18 11:44 04/21/18 11:44 04/21/18 11:44 Intake & Output 04/20/18 04/21/18 04/22/18 06:59 06:59 06:59 Intake Total 291 382 1269 Output Total 1475 750 350 Balance -1275 36 1004 Weight 103.5 kg 104.3 kg General appearance: PRESENT: no acute distress, well-developed, well-nourished Mouth exam: PRESENT: moist, neck supple Neck exam: ABSENT: JVD Respiratory exam: PRESENT: clear to auscultation jim, crackles, rales, rhonchi. ABSENT: accessory muscle use, wheezes Cardiovascular exam: PRESENT: +S1, +S2, systolic murmur GI/Abdominal exam: PRESENT: normal bowel sounds, soft. ABSENT: organomegaly, tenderness Extremities exam: PRESENT: pedal edema - -trace+. ABSENT: +1 edema, +2 edema Musculoskeletal exam: PRESENT: normal inspection. ABSENT: tenderness Neurological exam: PRESENT: alert, awake, oriented to person, oriented to place , oriented to time, oriented to situation Psychiatric exam: PRESENT: appropriate affect, normal mood Skin exam: PRESENT: dry, intact, warm. ABSENT: cyanosis Results Laboratory Results: 04/21/18 05:40 04/21/18 08:30 04/21/18 04/21/18 05:40 08:30 WBC 13.5 H RBC 3.12 L Hgb 8.7 L Hct 26.4 L MCV 85 MCH 28.1 MCHC 33.2 RDW 18.7 H Plt Count 141 L Seg Neutrophils % Not Reportable Lymphocytes % Not Reportable Monocytes % Not Reportable Eosinophils % Not Reportable Basophils % Not Reportable Absolute Neutrophils Not Reportable Absolute Lymphocytes Not Reportable Absolute Monocytes Not Reportable Absolute Eosinophils Not Reportable Absolute Basophils Not Reportable Sodium 146.4 H Potassium 5.0 Chloride 115 H Carbon Dioxide 21 L Anion Gap 10 BUN 46 H Creatinine 1.43 H Est GFR ( Amer) 59 L Est GFR (Non-Af Amer) 49 L Glucose 137 H Calcium 9.6 Total Bilirubin 2.7 H AST 126 H ALT 101 H Alkaline Phosphatase 242 H Total Protein 5.8 L Albumin 2.4 L 04/17/18 04/17/18 04/17/18 06:10 19:55 19:55 Creatine Kinase Cancelled 142 CK-MB (CK-2) Troponin I 0.089 04/17/18 04/18/18 04/18/18 19:55 02:10 02:10 Creatine Kinase 106 CK-MB (CK-2) 1.20 1.26 Troponin I 0.055 0.032 04/18/18 04/18/18 07:10 07:10 Creatine Kinase 91 CK-MB (CK-2) 1.49 Troponin I 0.017 Impressions: Abdomen Ultrasound 04/17/18 00:19 IMPRESSION: 1. Gallbladder sludge with stones. Nuclear medicine hepatobiliary scan may help better delineate. 2. Right-sided renal cyst 3. Otherwise unremarkable ultrasound of the abdomen for acute pathology. Abdomen/Pelvis CT 04/17/18 02:35 IMPRESSION: Partially imaged rounded consolidation involving the right lower lobe which is significantly increased in size compared to the prior. This may represent an enlarging pulmonary mass or pneumonia. Layering hyperdensity within the gallbladder, which may represent stones or sludge. TECHNICAL DOCUMENTATION: Quality ID # 436: Final reports with documentation of one or more dose reduction techniques (e.g., Automated exposure control, adjustment of the mA and/or kV according to patient size, use of iterative reconstruction technique) 2010 [employer]- All Rights Reserved Chest X-Ray 04/17/18 07:00 IMPRESSION: Interval line modification. Esophagus X-Ray 04/20/18 00:00 IMPRESSION: Small hiatal hernia, peptic stricture which impedes passage of 12 mm barium tablet Right lower lobe pneumonia Assessment & Plan - Diagnosis (1) Acute kidney injury Is this a current diagnosis for this admission?: Yes Plan: at baseline, creatinine is stable, fluids are stopped. (2) Pneumonia Qualifiers: Pneumonia type: due to unspecified organism Laterality: right Lung location: middle lobe of lung Qualified Code(s): J18.1 - Lobar pneumonia, unspecified organism Is this a current diagnosis for this admission?: Yes Plan: currently on antibiotics cefepime and levofloxacin (3) Anemia Qualifiers: Other causes of anemia: other cause, not classified Is this a current diagnosis for this admission?: Yes Plan: per heme-onc (4) Lung cancer Qualifiers: Laterality: right Lung location: unspecified part of lung Qualified Code( s): C34.91 - Malignant neoplasm of unspecified part of right bronchus or lung Plan: managed by heme-onc (5) Cystic kidney disease Is this a current diagnosis for this admission?: Yes Plan: followed as outpatient (6) Proteinuria Plan: stable (7) Thrombocytopenia Is this a current diagnosis for this admission?: Yes Plan: chronic (8) Metabolic acidosis Plan: improved to 21 from 18
--- NOTE | 2018-04-21 21:23 | PDOC CONSULTATION ---
Consultation Consult Date: 04/21/18 History of Present Illness Admission Date/PCP: 04/17/18 05:08 SADIE MCCRAY MD History of Present Illness: MEG MONTGOMERY is a 73 year old male patient admitted on 04/17/2018 with recurrent aspiration pneumonia. He has a history of lung cancer and had a right upper lobe lobectomy about a year ago. He had a recent barium swallow due to his complaint of dysphagia which showed a 5 cm area in the distal esophagus just above the he had a hernia with smooth narrowing. This prevented the passage of a 12 mm barium tablet. The rest of the esophagus appear normal. According to the patient he ingested [place]aye as a child and was actually fed by gastrostomy tube for a while. He then required esophageal dilation every year for many years until it became an adult. He has not had any endoscopies in decades. He has been having recurrent episodes of dysphagia mostly for meats over the years. If he chews his food very well he has no issues. He denies heartburn or odynophagia Past Medical History Cardiac Medical History: Reports: Hypertension Denies: Coronary Artery Disease, Myocardial Infarction Pulmonary Medical History: Reports: Chronic Obstructive Pulmonary Disease (COPD) Denies: Asthma, Bronchitis, Pneumonia Neurological Medical History: Denies: Seizures Malignancy Medical History: Reports: Lung Cancer Musculoskeltal Medical History: Denies: Arthritis Psychiatric Medical History: Denies: Depression Hematology: Denies: Anemia Social History Lives with: Family Smoking Status: Former Smoker Last Time Smoked: 1994 Frequency of Alcohol Use: None Hx Recreational Drug Use: No Hx Prescription Drug Abuse: No - Advance Directive Resuscitation Status: Full Code Family History Family History: Reviewed & Not Pertinent Parental Family History Reviewed: No Children Family History Reviewed: NA Sibling(s) Family History Reviewed.: NA Medication/Allergy Home Medications: Atenolol [Tenormin 50 mg Tablet] 50 mg PO DAILY 04/17/18 Atorvastatin Calcium [Lipitor 40 mg Tablet] 40 mg PO QHS 04/17/18 Oxycodone HCl [Oxy-Ir 5 mg Tablet] 5 mg PO Q12HP PRN 04/17/18 Valsartan/Hydrochlorothiazide [Valsartan-Hctz 320-25 mg Tab] 1 tab PO DAILY 01/28 Allergies/Adverse Reactions: No Known Allergies Allergy (Verified 04/27/14 21:43) Review of Systems All systems: reviewed and no additional remarkable complaints except as stated Physical Exam Vital Signs: Temp Pulse Resp BP Pulse Ox 97.9 F 98 17 140/69 H 95 04/21/18 20:02 04/21/18 20:16 04/21/18 20:16 04/21/18 20:02 04/21/18 20:16 Intake & Output 04/20/18 04/21/18 04/22/18 06:59 06:59 06:59 Intake Total 844 380 2429 Output Total 1475 750 625 Balance -1275 36 879 Weight 103.5 kg 104.3 kg Exam: General: Patient is alert and looks well. HEENT: There is no pallor or jaundice. PERRLA. Oropharynx normal Respiratory: No chest deformity. No respiratory distress. Chest wall palpitation was unremarkable. Breath sounds were normal Cardiovascular: Heart sounds 1 and 2 normal with no murmurs. Abdominal: Not distended. Soft and nontender. Liver and spleen not palpable. No ascites demonstrated. Bowel sounds active. Rectal examination was deferred. Extremities: No edema Neurological: Alert and oriented x4. Grossly nonfocal. Normal speech Skin: No significant rash Psychological: Normal affect Results Laboratory Results: 04/21/18 05:40 04/21/18 08:30 04/21/18 04/21/18 05:40 08:30 WBC 13.5 H RBC 3.12 L Hgb 8.7 L Hct 26.4 L MCV 85 MCH 28.1 MCHC 33.2 RDW 18.7 H Plt Count 141 L Seg Neutrophils % Not Reportable Lymphocytes % Not Reportable Monocytes % Not Reportable Eosinophils % Not Reportable Basophils % Not Reportable Absolute Neutrophils Not Reportable Absolute Lymphocytes Not Reportable Absolute Monocytes Not Reportable Absolute Eosinophils Not Reportable Absolute Basophils Not Reportable Sodium 146.4 H Potassium 5.0 Chloride 115 H Carbon Dioxide 21 L Anion Gap 10 BUN 46 H Creatinine 1.43 H Est GFR ( Amer) 59 L Est GFR (Non-Af Amer) 49 L Glucose 137 H Calcium 9.6 Total Bilirubin 2.7 H AST 126 H ALT 101 H Alkaline Phosphatase 242 H Total Protein 5.8 L Albumin 2.4 L 04/17/18 04/17/18 04/17/18 06:10 19:55 19:55 Creatine Kinase Cancelled 142 CK-MB (CK-2) Troponin I 0.089 04/17/18 04/18/18 04/18/18 19:55 02:10 02:10 Creatine Kinase 106 CK-MB (CK-2) 1.20 1.26 Troponin I 0.055 0.032 04/18/18 04/18/18 07:10 07:10 Creatine Kinase 91 CK-MB (CK-2) 1.49 Troponin I 0.017 Impressions: Abdomen Ultrasound 04/17/18 00:19 IMPRESSION: 1. Gallbladder sludge with stones. Nuclear medicine hepatobiliary scan may help better delineate. 2. Right-sided renal cyst 3. Otherwise unremarkable ultrasound of the abdomen for acute pathology. Abdomen/Pelvis CT 04/17/18 02:35 IMPRESSION: Partially imaged rounded consolidation involving the right lower lobe which is significantly increased in size compared to the prior. This may represent an enlarging pulmonary mass or pneumonia. Layering hyperdensity within the gallbladder, which may represent stones or sludge. TECHNICAL DOCUMENTATION: Quality ID # 436: Final reports with documentation of one or more dose reduction techniques (e.g., Automated exposure control, adjustment of the mA and/or kV according to patient size, use of iterative reconstruction technique) 2010 [employer]- All Rights Reserved Chest X-Ray 04/17/18 07:00 IMPRESSION: Interval line modification. 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 He has not had endoscopies in many decades. He is agreeable to an EGD which was supposed to be performed today but he inadvertently had lunch. He will likely need further dilation if there is no esophagitis (2) Abnormal finding on GI tract imaging Is this a current diagnosis for this admission?: Yes (4) Esophageal stricture Is this a current diagnosis for this admission?: Yes
--- NOTE | 2018-04-21 22:00 | PDOC PROGRESS REPORT ---
Subjective Progress Note for:: 04/21/18 Subjective:: Patient is seen by the bedside, he was supposed to have upper endoscopy with dilation today but he had a meal so this was canceled Reason For Visit: POST-OBSTRUCTIVE PNEUMONIA, H/O RUL CANCER Physical Exam Vital Signs: Temp Pulse Resp BP Pulse Ox 97.9 F 98 17 140/69 H 95 04/21/18 20:02 04/21/18 20:16 04/21/18 20:16 04/21/18 20:02 04/21/18 20:16 Intake & Output 04/20/18 04/21/18 04/22/18 06:59 06:59 06:59 Intake Total 126 023 1743 Output Total 1475 750 625 Balance -1275 36 879 Weight 103.5 kg 104.3 kg General appearance: PRESENT: mild distress Head exam: PRESENT: atraumatic, normocephalic Eye exam: PRESENT: conjunctiva pink, EOMI, PERRLA Ear exam: PRESENT: normal external ear exam Mouth exam: PRESENT: moist, tongue midline Neck exam: PRESENT: full ROM Respiratory exam: PRESENT: wheezes Cardiovascular exam: PRESENT: RRR, +S1, +S2 Vascular exam: PRESENT: normal capillary refill GI/Abdominal exam: PRESENT: normal bowel sounds, soft Rectal exam: PRESENT: deferred Neurological exam: PRESENT: alert, awake, oriented to person, oriented to place , oriented to time, oriented to situation, CN II-XII grossly intact. ABSENT: motor sensory deficit Psychiatric exam: PRESENT: appropriate affect, normal mood. ABSENT: homicidal ideation, suicidal ideation Skin exam: PRESENT: dry, intact, warm. ABSENT: cyanosis, rash Results Laboratory Results: 04/21/18 05:40 04/21/18 08:30 04/21/18 04/21/18 05:40 08:30 WBC 13.5 H RBC 3.12 L Hgb 8.7 L Hct 26.4 L MCV 85 MCH 28.1 MCHC 33.2 RDW 18.7 H Plt Count 141 L Seg Neutrophils % Not Reportable Lymphocytes % Not Reportable Monocytes % Not Reportable Eosinophils % Not Reportable Basophils % Not Reportable Absolute Neutrophils Not Reportable Absolute Lymphocytes Not Reportable Absolute Monocytes Not Reportable Absolute Eosinophils Not Reportable Absolute Basophils Not Reportable Sodium 146.4 H Potassium 5.0 Chloride 115 H Carbon Dioxide 21 L Anion Gap 10 BUN 46 H Creatinine 1.43 H Est GFR ( Amer) 59 L Est GFR (Non-Af Amer) 49 L Glucose 137 H Calcium 9.6 Total Bilirubin 2.7 H AST 126 H ALT 101 H Alkaline Phosphatase 242 H Total Protein 5.8 L Albumin 2.4 L 04/17/18 04/17/18 04/17/18 06:10 19:55 19:55 Creatine Kinase Cancelled 142 CK-MB (CK-2) Troponin I 0.089 04/17/18 04/18/18 04/18/18 19:55 02:10 02:10 Creatine Kinase 106 CK-MB (CK-2) 1.20 1.26 Troponin I 0.055 0.032 04/18/18 04/18/18 07:10 07:10 Creatine Kinase 91 CK-MB (CK-2) 1.49 Troponin I 0.017 Impressions: Abdomen Ultrasound 04/17/18 00:19 IMPRESSION: 1. Gallbladder sludge with stones. Nuclear medicine hepatobiliary scan may help better delineate. 2. Right-sided renal cyst 3. Otherwise unremarkable ultrasound of the abdomen for acute pathology. Abdomen/Pelvis CT 04/17/18 02:35 IMPRESSION: Partially imaged rounded consolidation involving the right lower lobe which is significantly increased in size compared to the prior. This may represent an enlarging pulmonary mass or pneumonia. Layering hyperdensity within the gallbladder, which may represent stones or sludge. TECHNICAL DOCUMENTATION: Quality ID # 436: Final reports with documentation of one or more dose reduction techniques (e.g., Automated exposure control, adjustment of the mA and/or kV according to patient size, use of iterative reconstruction technique) 2010 [employer]- All Rights Reserved Chest X-Ray 04/17/18 07:00 IMPRESSION: Interval line modification. Esophagus X-Ray 04/20/18 00:00 IMPRESSION: Small hiatal hernia, peptic stricture which impedes passage of 12 mm barium tablet Right lower lobe pneumonia Assessment & Plan - Diagnosis (1) Sepsis Qualifiers: Sepsis type: sepsis due to unspecified organism Qualified Code(s): A41.9 - Sepsis, unspecified organism Is this a current diagnosis for this admission?: Yes (2) Acute kidney injury Is this a current diagnosis for this admission?: Yes (3) Malignant neoplasm of lung Qualifiers: Laterality: right Lung location: middle lobe of lung Qualified Code(s): C34.2 - Malignant neoplasm of middle lobe, bronchus or lung Is this a current diagnosis for this admission?: Yes (4) Hypotension Qualifiers: Hypotension type: unspecified hypotension type Qualified Code(s): I95.9 - Hypotension, unspecified Is this a current diagnosis for this admission?: Yes (5) Pneumonia Qualifiers: Pneumonia type: due to unspecified organism Laterality: right Lung location: middle lobe of lung Qualified Code(s): J18.1 - Lobar pneumonia, unspecified organism Is this a current diagnosis for this admission?: Yes (6) Anemia Qualifiers: Other causes of anemia: other cause, not classified Is this a current diagnosis for this admission?: Yes (7) Thrombocytopenia Is this a current diagnosis for this admission?: Yes (8) Atrial flutter Qualifiers: Atrial flutter type: atypical Qualified Code(s): I48.4 - Atypical atrial flutter Is this a current diagnosis for this admission?: Yes (9) Cystic kidney disease Is this a current diagnosis for this admission?: Yes (10) Elevated bilirubin Is this a current diagnosis for this admission?: Yes (11) Septic shock Is this a current diagnosis for this admission?: Yes - Plan Summary Plan Summary: Continue treatment
[2018-04-21] MEDS: CEFEPIME 1 GM/D5W RTU 1 GM/50 ML RTUPB IV SCH (22:32)
[2018-04-22] MEDS: HEPARIN SOD (PORCINE) 5,000 UNIT/ML 1 ML SYRINGE SUBCUT SCH ×4 (03:01→23:53)
[2018-04-22] MEDS: IPRATROPIUM/ALBUTEROL 0.5-2.5 MG/3 ML AMPUL NEB PRN (04:24)
[2018-04-22] MEDS: METHYLPREDNISOLONE INJ 125 MG/2 ML SDV IV SCH ×4 (06:08→23:56)
[2018-04-22 06:32] LABS: HEMATOCRIT 26.5 % (37.9-51.0); HEMOGLOBIN 8.6 g/dL (13.5-17.0); MEAN CORPUSCULAR HEMOGLOBIN 27.7 pg (27.0-33.4); MEAN CORPUSCULAR HGB CONC 32.3 g/dL (32.0-36.0); MEAN CORPUSCULAR VOLUME 86 fl (80-97); PLATELET COUNT 158 10^3/uL (150-450); RED BLOOD COUNT 3.09 10^6/uL (4.35-5.55); RED CELL DISTRIBUTION WIDTH 18.6 % (11.5-14.0); WHITE BLOOD COUNT 15.9 10^3/uL (4.0-10.5)
[2018-04-22 06:38] LABS: ALANINE AMINOTRANSFERASE 107 U/L (21-72); ALBUMIN 2.3 g/dL (3.5-5.0); ALKALINE PHOSPHATASE 263 U/L (38-126); ANION GAP 10 (5-19); ASPARTATE AMINO TRANSFERASE 94 U/L (17-59); BILIRUBIN,DIRECT 1.6 mg/dL (0.0-0.4); BILIRUBIN,TOTAL 2.4 mg/dL (0.2-1.3); BLOOD UREA NITROGEN 46 mg/dL (7-20); CALCIUM 9.6 mg/dL (8.4-10.2); CARBON DIOXIDE 21 mmol/L (22-30); CHLORIDE 114 mmol/L (98-107); GLUCOSE 149 mg/dL (75-110); POTASSIUM 4.7 mmol/L (3.6-5.0); SODIUM 144.7 mmol/L (137-145); TOTAL PROTEIN 5.7 g/dL (6.3-8.2)
[2018-04-22 07:58] LABS: ABSOLUTE LYMPHOCYTES# (MANUAL) 1.1 10^3/uL (0.5-4.7); ABSOLUTE MONOCYTES # (MANUAL) 0.8 10^3/uL (0.1-1.4); BAND NEUTROPHILS % (MANUAL) 1 % (3-5); BASOPHILS % (MANUAL) 0 % (0-2); EOSINOPHILS % (MANUAL) 0 % (0-6); LYMPHOCYTES % (MANUAL) 7 % (13-45); METAMYELOCYTES % (MANUAL) 1 % (0); MONOCYTES % (MANUAL) 5 % (3-13); NUCLEATED RED BLOOD CELLS 1 /100 WBC (0); SEGMENTED NEUTROPHILS % (MAN) 86 % (42-78); TOTAL CELLS COUNTED 100
[2018-04-22 07:59] LABS: ANISOCYTOSIS 2+; OVALOCYTES SLIGHT; PLATELET COMMENT ADEQUATE; POIKILOCYTOSIS SLIGHT
[2018-04-22] MEDS: LEVALBUTEROL HCL NEB 1.25 MG/3 ML AMPUL NEB SCH ×3 (08:04→20:27)
--- NOTE | 2018-04-22 08:33 | PDOC PROGRESS REPORT ---
Subjective Progress Note for:: 04/22/18 Subjective:: Pt doing better this am, EGD now planned for wednesday, did get up in chair and walked w/ PT Reason For Visit: POST-OBSTRUCTIVE PNEUMONIA, H/O RUL CANCER Physical Exam Vital Signs: Temp Pulse Resp BP Pulse Ox 97.7 F 71 17 151/79 H 98 04/22/18 04:19 04/22/18 04:24 04/22/18 04:24 04/22/18 04:19 04/22/18 04:24 Intake & Output 04/21/18 04/22/18 04/23/18 06:59 06:59 06:59 Intake Total 786 1854 Output Total 750 625 Balance 36 1229 Weight 104.3 kg 104.7 kg General appearance: PRESENT: no acute distress, well-developed, well-nourished Head exam: PRESENT: atraumatic, normocephalic Eye exam: PRESENT: conjunctiva pink, EOMI, PERRLA. ABSENT: scleral icterus Ear exam: PRESENT: normal external ear exam Mouth exam: PRESENT: moist, tongue midline Neck exam: ABSENT: carotid bruit, JVD, lymphadenopathy, thyromegaly Respiratory exam: PRESENT: clear to auscultation jim. ABSENT: rales, rhonchi, wheezes Cardiovascular exam: PRESENT: RRR. ABSENT: diastolic murmur, rubs, systolic murmur Pulses: PRESENT: normal dorsalis pedis pul Vascular exam: PRESENT: normal capillary refill GI/Abdominal exam: PRESENT: normal bowel sounds, soft. ABSENT: distended, guarding, mass, organolmegaly, rebound, tenderness Rectal exam: PRESENT: deferred Extremities exam: PRESENT: full ROM. ABSENT: calf tenderness, clubbing, pedal edema Neurological exam: PRESENT: alert, awake, oriented to person, oriented to place , oriented to time, oriented to situation, CN II-XII grossly intact. ABSENT: motor sensory deficit Psychiatric exam: PRESENT: appropriate affect, normal mood. ABSENT: homicidal ideation, suicidal ideation Skin exam: PRESENT: dry, intact, warm. ABSENT: cyanosis, rash Results Laboratory Results: 04/22/18 05:30 04/22/18 05:30 04/21/18 04/22/18 04/22/18 08:30 05:30 05:30 WBC 15.9 H RBC 3.09 L Hgb 8.6 L Hct 26.5 L MCV 86 MCH 27.7 MCHC 32.3 RDW 18.6 H Plt Count 158 Seg Neutrophils % Not Reportable Lymphocytes % Not Reportable Monocytes % Not Reportable Eosinophils % Not Reportable Basophils % Not Reportable Absolute Neutrophils Not Reportable Absolute Lymphocytes Not Reportable Absolute Monocytes Not Reportable Absolute Eosinophils Not Reportable Absolute Basophils Not Reportable Sodium 146.4 H 144.7 Potassium 5.0 4.7 Chloride 115 H 114 H Carbon Dioxide 21 L 21 L Anion Gap 10 10 BUN 46 H 46 H Creatinine 1.43 H 1.43 H Est GFR ( Amer) 59 L 59 L Est GFR (Non-Af Amer) 49 L 49 L Glucose 137 H 149 H Calcium 9.6 9.6 Total Bilirubin 2.7 H 2.4 H AST 126 H 94 H ALT 101 H 107 H Alkaline Phosphatase 242 H 263 H Total Protein 5.8 L 5.7 L Albumin 2.4 L 2.3 L 04/17/18 04/17/18 04/17/18 06:10 19:55 19:55 Creatine Kinase Cancelled 142 CK-MB (CK-2) Troponin I 0.089 04/17/18 04/18/18 04/18/18 19:55 02:10 02:10 Creatine Kinase 106 CK-MB (CK-2) 1.20 1.26 Troponin I 0.055 0.032 04/18/18 04/18/18 07:10 07:10 Creatine Kinase 91 CK-MB (CK-2) 1.49 Troponin I 0.017 Impressions: Abdomen Ultrasound 04/17/18 00:19 IMPRESSION: 1. Gallbladder sludge with stones. Nuclear medicine hepatobiliary scan may help better delineate. 2. Right-sided renal cyst 3. Otherwise unremarkable ultrasound of the abdomen for acute pathology. Abdomen/Pelvis CT 04/17/18 02:35 IMPRESSION: Partially imaged rounded consolidation involving the right lower lobe which is significantly increased in size compared to the prior. This may represent an enlarging pulmonary mass or pneumonia. Layering hyperdensity within the gallbladder, which may represent stones or sludge. TECHNICAL DOCUMENTATION: Quality ID # 436: Final reports with documentation of one or more dose reduction techniques (e.g., Automated exposure control, adjustment of the mA and/or kV according to patient size, use of iterative reconstruction technique) 2010 [employer]- All Rights Reserved Chest X-Ray 04/17/18 07:00 IMPRESSION: Interval line modification. Esophagus X-Ray 04/20/18 00:00 IMPRESSION: Small hiatal hernia, peptic stricture which impedes passage of 12 mm barium tablet Right lower lobe pneumonia Assessment & Plan - Diagnosis (1) Pneumonia Qualifiers: Pneumonia type: due to unspecified organism Laterality: right Lung location: middle lobe of lung Qualified Code(s): J18.1 - Lobar pneumonia, unspecified organism Is this a current diagnosis for this admission?: Yes Plan: Improving, can start tapering atbx per primary team (2) Malignant neoplasm of lung Qualifiers: Laterality: right Lung location: middle lobe of lung Qualified Code(s): C34.2 - Malignant neoplasm of middle lobe, bronchus or lung Is this a current diagnosis for this admission?: Yes Plan: Plan to cont rx as outpt, will need steroid taper once we are ready for d/c (3) Acute kidney injury Is this a current diagnosis for this admission?: Yes Plan: Improved, nephro following (4) Elevated bilirubin Is this a current diagnosis for this admission?: Yes Plan: Improving (5) Esophageal stricture Is this a current diagnosis for this admission?: Yes Plan: EGD planned wednesday, d/w pt today - Time Time Spent with patient: 35 or more minutes - Inpatient Certification Based on my medical assessment, after consideration of the patient's comorbidities, presenting symptoms, or acuity I expect that the services needed warrant INPATIENT care.: Yes I certify that my determination is in accordance with my understanding of Medicare's requirements for reasonable and necessary INPATIENT services [42 CFR 412.3e].: Yes Medical Necessity: Need For Continuous Telemetry Monitoring, Need for IV Antibiotics, Need for Surgery
[2018-04-22] MEDS: POLYETHYLENE GLYCOL 3350 POWDER 17 GM/1 PACKET PO SCH (10:20)
[2018-04-22] MEDS: DRONEDARONE HYDROCHLORIDE 400 MG TABLET PO SCH ×2 (10:20→17:23)
[2018-04-22] MEDS: GUAIFENESIN 600 MG TABLET.SA PO SCH ×2 (10:21→23:53)
[2018-04-22] MEDS: SODIUM BICARBONATE 650 MG TABLET PO SCH (10:21)
--- NOTE | 2018-04-22 21:19 | PDOC PROGRESS REPORT ---
Subjective Progress Note for:: 04/22/18 Subjective:: He complained of cough, is scheduled for EGD and dilatation of the esophagus in the morning Reason For Visit: POST-OBSTRUCTIVE PNEUMONIA, H/O RUL CANCER Physical Exam Vital Signs: Temp Pulse Resp BP Pulse Ox 97.6 F 90 20 127/68 H 99 04/22/18 15:29 04/22/18 15:29 04/22/18 15:29 04/22/18 15:29 04/22/18 15:29 Intake & Output 04/21/18 04/22/18 04/23/18 06:59 06:59 06:59 Intake Total 786 1854 222 Output Total 750 625 325 Balance 36 1229 -103 Weight 104.3 kg 104.7 kg General appearance: PRESENT: no acute distress Eye exam: PRESENT: PERRLA Respiratory exam: PRESENT: rhonchi Cardiovascular exam: PRESENT: +S1, +S2 GI/Abdominal exam: PRESENT: soft Neurological exam: PRESENT: alert, CN II-XII grossly intact Results Laboratory Results: 04/22/18 05:30 04/22/18 05:30 04/22/18 04/22/18 05:30 05:30 WBC 15.9 H RBC 3.09 L Hgb 8.6 L Hct 26.5 L MCV 86 MCH 27.7 MCHC 32.3 RDW 18.6 H Plt Count 158 Seg Neutrophils % Not Reportable Lymphocytes % Not Reportable Monocytes % Not Reportable Eosinophils % Not Reportable Basophils % Not Reportable Absolute Neutrophils Not Reportable Absolute Lymphocytes Not Reportable Absolute Monocytes Not Reportable Absolute Eosinophils Not Reportable Absolute Basophils Not Reportable Sodium 144.7 Potassium 4.7 Chloride 114 H Carbon Dioxide 21 L Anion Gap 10 BUN 46 H Creatinine 1.43 H Est GFR ( Amer) 59 L Est GFR (Non-Af Amer) 49 L Glucose 149 H Calcium 9.6 Total Bilirubin 2.4 H AST 94 H ALT 107 H Alkaline Phosphatase 263 H Total Protein 5.7 L Albumin 2.3 L 04/17/18 04/17/18 04/17/18 06:10 19:55 19:55 Creatine Kinase Cancelled 142 CK-MB (CK-2) Troponin I 0.089 04/17/18 04/18/18 04/18/18 19:55 02:10 02:10 Creatine Kinase 106 CK-MB (CK-2) 1.20 1.26 Troponin I 0.055 0.032 04/18/18 04/18/18 07:10 07:10 Creatine Kinase 91 CK-MB (CK-2) 1.49 Troponin I 0.017 Impressions: Abdomen Ultrasound 04/17/18 00:19 IMPRESSION: 1. Gallbladder sludge with stones. Nuclear medicine hepatobiliary scan may help better delineate. 2. Right-sided renal cyst 3. Otherwise unremarkable ultrasound of the abdomen for acute pathology. Abdomen/Pelvis CT 04/17/18 02:35 IMPRESSION: Partially imaged rounded consolidation involving the right lower lobe which is significantly increased in size compared to the prior. This may represent an enlarging pulmonary mass or pneumonia. Layering hyperdensity within the gallbladder, which may represent stones or sludge. TECHNICAL DOCUMENTATION: Quality ID # 436: Final reports with documentation of one or more dose reduction techniques (e.g., Automated exposure control, adjustment of the mA and/or kV according to patient size, use of iterative reconstruction technique) 2010 [employer]- All Rights Reserved Chest X-Ray 04/17/18 07:00 IMPRESSION: Interval line modification. Esophagus X-Ray 04/20/18 00:00 IMPRESSION: Small hiatal hernia, peptic stricture which impedes passage of 12 mm barium tablet Right lower lobe pneumonia Assessment & Plan - Diagnosis (1) Sepsis Qualifiers: Sepsis type: sepsis due to unspecified organism Qualified Code(s): A41.9 - Sepsis, unspecified organism Is this a current diagnosis for this admission?: Yes (2) Acute kidney injury Is this a current diagnosis for this admission?: Yes (3) Malignant neoplasm of lung Qualifiers: Laterality: right Lung location: middle lobe of lung Qualified Code(s): C34.2 - Malignant neoplasm of middle lobe, bronchus or lung Is this a current diagnosis for this admission?: Yes (4) Hypotension Qualifiers: Hypotension type: unspecified hypotension type Qualified Code(s): I95.9 - Hypotension, unspecified Is this a current diagnosis for this admission?: Yes (5) Pneumonia Qualifiers: Pneumonia type: due to unspecified organism Laterality: right Lung location: middle lobe of lung Qualified Code(s): J18.1 - Lobar pneumonia, unspecified organism Is this a current diagnosis for this admission?: Yes (6) Anemia Qualifiers: Other causes of anemia: other cause, not classified Is this a current diagnosis for this admission?: Yes (7) Thrombocytopenia Is this a current diagnosis for this admission?: Yes (8) Atrial flutter Qualifiers: Atrial flutter type: atypical Qualified Code(s): I48.4 - Atypical atrial flutter Is this a current diagnosis for this admission?: Yes (9) Cystic kidney disease Is this a current diagnosis for this admission?: Yes (10) Elevated bilirubin Is this a current diagnosis for this admission?: Yes (11) Septic shock Is this a current diagnosis for this admission?: Yes
[2018-04-22] MEDS: CEFEPIME 1 GM/D5W RTU 1 GM/50 ML RTUPB IV SCH (23:54)
[2018-04-23] MEDS ORDERED: GUAIFENESIN SYRP 200 MG/10 ML UDC ONE (01:46)
[2018-04-23] MEDS: IPRATROPIUM/ALBUTEROL 0.5-2.5 MG/3 ML AMPUL NEB PRN (02:12)
[2018-04-23 05:44] LABS: HEMATOCRIT 25.8 % (37.9-51.0); HEMOGLOBIN 8.3 g/dL (13.5-17.0); MEAN CORPUSCULAR HEMOGLOBIN 27.7 pg (27.0-33.4); MEAN CORPUSCULAR HGB CONC 32.2 g/dL (32.0-36.0); MEAN CORPUSCULAR VOLUME 86 fl (80-97); PLATELET COUNT 160 10^3/uL (150-450); RED BLOOD COUNT 2.99 10^6/uL (4.35-5.55); RED CELL DISTRIBUTION WIDTH 18.5 % (11.5-14.0); WHITE BLOOD COUNT 16.9 10^3/uL (4.0-10.5)
[2018-04-23 05:56] LABS: ALANINE AMINOTRANSFERASE 100 U/L (21-72); ALBUMIN 2.3 g/dL (3.5-5.0); ALKALINE PHOSPHATASE 261 U/L (38-126); ANION GAP 9 (5-19); ASPARTATE AMINO TRANSFERASE 76 U/L (17-59); BILIRUBIN,DIRECT 1.3 mg/dL (0.0-0.4); BILIRUBIN,TOTAL 1.8 mg/dL (0.2-1.3); BLOOD UREA NITROGEN 45 mg/dL (7-20); CALCIUM 9.6 mg/dL (8.4-10.2); CARBON DIOXIDE 23 mmol/L (22-30); CHLORIDE 113 mmol/L (98-107); GLUCOSE 202 mg/dL (75-110); SODIUM 144.8 mmol/L (137-145); TOTAL PROTEIN 5.6 g/dL (6.3-8.2)
[2018-04-23 06:33] LABS: ABSOLUTE LYMPHOCYTES# (MANUAL) 0.5 10^3/uL (0.5-4.7); ABSOLUTE MONOCYTES # (MANUAL) 0.7 10^3/uL (0.1-1.4); ABSOLUTE NEUTROPHILS# (MANUAL) 15.7 10^3/uL (1.7-8.2); BASOPHILS % (MANUAL) 0 % (0-2); EOSINOPHILS % (MANUAL) 0 % (0-6); LYMPHOCYTES % (MANUAL) 3 % (13-45); MONOCYTES % (MANUAL) 4 % (3-13); SEGMENTED NEUTROPHILS % (MAN) 93 % (42-78); TOTAL CELLS COUNTED 100
[2018-04-23 06:34] LABS: HYPOCHROMASIA 2+
[2018-04-23 06:36] LABS: ANISOCYTOSIS 2+; STOMATOCYTES 1+
[2018-04-23 06:37] LABS: PLATELET COMMENT ADEQUATE; TOXIC GRANULATION 1+
[2018-04-23 06:38] LABS: NUCLEATED RED BLOOD CELLS 1 /100 WBC (0)
[2018-04-23] MEDS: METHYLPREDNISOLONE INJ 125 MG/2 ML SDV IV SCH ×3 (07:20→21:10)
[2018-04-23] MEDS: HEPARIN SOD (PORCINE) 5,000 UNIT/ML 1 ML SYRINGE SUBCUT SCH ×3 (07:21→21:10)
[2018-04-23] MEDS: GUAIFENESIN/D-METHORPHAN (200-20 MG) SYRUP 10 ML PO PRN (07:32)
[2018-04-23] MEDS: LEVALBUTEROL HCL NEB 1.25 MG/3 ML AMPUL NEB SCH ×3 (08:03→19:51)
[2018-04-23] MEDS: GUAIFENESIN 600 MG TABLET.SA PO SCH ×2 (09:53→21:10)
[2018-04-23] MEDS: POLYETHYLENE GLYCOL 3350 POWDER 17 GM/1 PACKET PO SCH (09:53)
[2018-04-23] MEDS: DRONEDARONE HYDROCHLORIDE 400 MG TABLET PO SCH ×2 (09:53→17:17)
[2018-04-23] MEDS: LEVOFLOXACIN 750 MG TABLET PO SCH (09:53)
[2018-04-23] MEDS: SODIUM BICARBONATE 650 MG TABLET PO SCH (09:53)
--- NOTE | 2018-04-23 11:03 | PDOC PROGRESS REPORT ---
Subjective Progress Note for:: 04/23/18 Subjective:: Feeling better today, plan for EGD this evening. Was able to walk with a walker , reviewed labs and bili continues to come down. Reason For Visit: POST-OBSTRUCTIVE PNEUMONIA, H/O RUL CANCER Physical Exam Vital Signs: Temp Pulse Resp BP Pulse Ox 97.7 F 93 18 136/80 H 99 04/23/18 07:07 04/23/18 07:07 04/23/18 07:07 04/23/18 07:07 04/23/18 07:07 Intake & Output 04/22/18 04/23/18 04/24/18 06:59 06:59 06:59 Intake Total 1904 1005 Output Total 625 725 Balance 1279 280 Weight 104.7 kg 104.6 kg General appearance: PRESENT: no acute distress, well-developed, well-nourished Head exam: PRESENT: atraumatic, normocephalic Eye exam: PRESENT: conjunctiva pink, EOMI, PERRLA. ABSENT: scleral icterus Ear exam: PRESENT: normal external ear exam Mouth exam: PRESENT: moist, tongue midline Neck exam: ABSENT: carotid bruit, JVD, lymphadenopathy, thyromegaly Respiratory exam: PRESENT: clear to auscultation jim. ABSENT: rales, rhonchi, wheezes Cardiovascular exam: PRESENT: RRR. ABSENT: diastolic murmur, rubs, systolic murmur Pulses: PRESENT: normal dorsalis pedis pul Vascular exam: PRESENT: normal capillary refill GI/Abdominal exam: PRESENT: normal bowel sounds, soft. ABSENT: distended, guarding, mass, organolmegaly, rebound, tenderness Rectal exam: PRESENT: deferred Extremities exam: PRESENT: full ROM. ABSENT: calf tenderness, clubbing, pedal edema Neurological exam: PRESENT: alert, awake, oriented to person, oriented to place , oriented to time, oriented to situation, CN II-XII grossly intact. ABSENT: motor sensory deficit Psychiatric exam: PRESENT: appropriate affect, normal mood. ABSENT: homicidal ideation, suicidal ideation Skin exam: PRESENT: dry, intact, warm. ABSENT: cyanosis, rash Results Laboratory Results: 04/23/18 05:00 04/23/18 05:00 04/23/18 04/23/18 05:00 05:00 WBC 16.9 H RBC 2.99 L Hgb 8.3 L Hct 25.8 L MCV 86 MCH 27.7 MCHC 32.2 RDW 18.5 H Plt Count 160 Seg Neutrophils % Not Reportable Lymphocytes % Not Reportable Monocytes % Not Reportable Eosinophils % Not Reportable Basophils % Not Reportable Absolute Neutrophils Not Reportable Absolute Lymphocytes Not Reportable Absolute Monocytes Not Reportable Absolute Eosinophils Not Reportable Absolute Basophils Not Reportable Sodium 144.8 Potassium 5.0 Chloride 113 H Carbon Dioxide 23 Anion Gap 9 BUN 45 H Creatinine 1.33 H Est GFR ( Amer) > 60 Est GFR (Non-Af Amer) 53 L Glucose 202 H Calcium 9.6 Total Bilirubin 1.8 H AST 76 H ALT 100 H Alkaline Phosphatase 261 H Total Protein 5.6 L Albumin 2.3 L 04/17/18 04/17/18 04/17/18 06:10 19:55 19:55 Creatine Kinase Cancelled 142 CK-MB (CK-2) Troponin I 0.089 04/17/18 04/18/18 04/18/18 19:55 02:10 02:10 Creatine Kinase 106 CK-MB (CK-2) 1.20 1.26 Troponin I 0.055 0.032 04/18/18 04/18/18 07:10 07:10 Creatine Kinase 91 CK-MB (CK-2) 1.49 Troponin I 0.017 Impressions: Abdomen Ultrasound 04/17/18 00:19 IMPRESSION: 1. Gallbladder sludge with stones. Nuclear medicine hepatobiliary scan may help better delineate. 2. Right-sided renal cyst 3. Otherwise unremarkable ultrasound of the abdomen for acute pathology. Abdomen/Pelvis CT 04/17/18 02:35 IMPRESSION: Partially imaged rounded consolidation involving the right lower lobe which is significantly increased in size compared to the prior. This may represent an enlarging pulmonary mass or pneumonia. Layering hyperdensity within the gallbladder, which may represent stones or sludge. TECHNICAL DOCUMENTATION: Quality ID # 436: Final reports with documentation of one or more dose reduction techniques (e.g., Automated exposure control, adjustment of the mA and/or kV according to patient size, use of iterative reconstruction technique) 2010 [employer]- All Rights Reserved Chest X-Ray 04/17/18 07:00 IMPRESSION: Interval line modification. Esophagus X-Ray 04/20/18 00:00 IMPRESSION: Small hiatal hernia, peptic stricture which impedes passage of 12 mm barium tablet Right lower lobe pneumonia Assessment & Plan - Diagnosis (1) Pneumonia Qualifiers: Pneumonia type: due to unspecified organism Laterality: right Lung location: middle lobe of lung Qualified Code(s): J18.1 - Lobar pneumonia, unspecified organism Is this a current diagnosis for this admission?: Yes Plan: Improved, continue with antibiotics. (2) Malignant neoplasm of lung Qualifiers: Laterality: right Lung location: middle lobe of lung Qualified Code(s): C34.2 - Malignant neoplasm of middle lobe, bronchus or lung Is this a current diagnosis for this admission?: Yes Plan: Plan for continued therapy as an outpatient (3) Acute kidney injury Is this a current diagnosis for this admission?: Yes Plan: Improved, continue to monitor (4) Elevated bilirubin Is this a current diagnosis for this admission?: Yes Plan: Improving, secondary to immunotherapy, patient will need prolonged taper as an outpatient. (5) Esophageal stricture Is this a current diagnosis for this admission?: Yes Plan: EgD plan for today hopeful dilation. - Time Time Spent with patient: 35 or more minutes - Inpatient Certification Based on my medical assessment, after consideration of the patient's comorbidities, presenting symptoms, or acuity I expect that the services needed warrant INPATIENT care.: Yes I certify that my determination is in accordance with my understanding of Medicare's requirements for reasonable and necessary INPATIENT services [42 CFR 412.3e].: Yes Medical Necessity: Need for Nebulizer Therapy and Monitoring of Response, Need for IV Antibiotics, Need for Surgery
--- NOTE | 2018-04-23 12:24 | PDOC PROGRESS REPORT ---
Subjective Progress Note for:: 04/23/18 Subjective:: Patient is currently doing well Denied any chest pain denied any shortness of the breath as per discussed with the hematology will Jayna Reason For Visit: POST-OBSTRUCTIVE PNEUMONIA, H/O RUL CANCER Physical Exam Vital Signs: Temp Pulse Resp BP Pulse Ox 97.7 F 89 16 136/80 H 99 04/23/18 07:07 04/23/18 08:03 04/23/18 08:03 04/23/18 07:07 04/23/18 07:07 Intake & Output 04/22/18 04/23/18 04/24/18 06:59 06:59 06:59 Intake Total 1904 1005 Output Total 625 725 Balance 1279 280 Weight 104.7 kg 104.6 kg General appearance: PRESENT: no acute distress, well-developed, well-nourished Head exam: PRESENT: atraumatic, normocephalic Eye exam: PRESENT: conjunctiva pink, EOMI, PERRLA. ABSENT: scleral icterus Ear exam: PRESENT: normal external ear exam Mouth exam: PRESENT: moist, tongue midline Neck exam: PRESENT: full ROM. ABSENT: carotid bruit, JVD, lymphadenopathy, thyromegaly Respiratory exam: PRESENT: clear to auscultation jim Cardiovascular exam: PRESENT: RRR. ABSENT: diastolic murmur, rubs, systolic murmur Pulses: PRESENT: normal dorsalis pedis pul, +2 pedal pulses bilateral Vascular exam: PRESENT: normal capillary refill GI/Abdominal exam: PRESENT: normal bowel sounds, soft. ABSENT: distended, guarding, mass, organolmegaly, rebound, tenderness Rectal exam: PRESENT: deferred Extremities exam: ABSENT: pedal edema Neurological exam: PRESENT: alert, awake, oriented to person, oriented to place , oriented to time, oriented to situation, CN II-XII grossly intact. ABSENT: motor sensory deficit Psychiatric exam: PRESENT: appropriate affect, normal mood. ABSENT: homicidal ideation, suicidal ideation Skin exam: PRESENT: dry, intact, warm. ABSENT: cyanosis, rash Results Laboratory Results: 04/23/18 05:00 04/23/18 05:00 04/23/18 04/23/18 05:00 05:00 WBC 16.9 H RBC 2.99 L Hgb 8.3 L Hct 25.8 L MCV 86 MCH 27.7 MCHC 32.2 RDW 18.5 H Plt Count 160 Seg Neutrophils % Not Reportable Lymphocytes % Not Reportable Monocytes % Not Reportable Eosinophils % Not Reportable Basophils % Not Reportable Absolute Neutrophils Not Reportable Absolute Lymphocytes Not Reportable Absolute Monocytes Not Reportable Absolute Eosinophils Not Reportable Absolute Basophils Not Reportable Sodium 144.8 Potassium 5.0 Chloride 113 H Carbon Dioxide 23 Anion Gap 9 BUN 45 H Creatinine 1.33 H Est GFR ( Amer) > 60 Est GFR (Non-Af Amer) 53 L Glucose 202 H Calcium 9.6 Total Bilirubin 1.8 H AST 76 H ALT 100 H Alkaline Phosphatase 261 H Total Protein 5.6 L Albumin 2.3 L 04/17/18 04/17/18 04/17/18 06:10 19:55 19:55 Creatine Kinase Cancelled 142 CK-MB (CK-2) Troponin I 0.089 04/17/18 04/18/18 04/18/18 19:55 02:10 02:10 Creatine Kinase 106 CK-MB (CK-2) 1.20 1.26 Troponin I 0.055 0.032 04/18/18 04/18/18 07:10 07:10 Creatine Kinase 91 CK-MB (CK-2) 1.49 Troponin I 0.017 Impressions: Abdomen Ultrasound 04/17/18 00:19 IMPRESSION: 1. Gallbladder sludge with stones. Nuclear medicine hepatobiliary scan may help better delineate. 2. Right-sided renal cyst 3. Otherwise unremarkable ultrasound of the abdomen for acute pathology. Abdomen/Pelvis CT 04/17/18 02:35 IMPRESSION: Partially imaged rounded consolidation involving the right lower lobe which is significantly increased in size compared to the prior. This may represent an enlarging pulmonary mass or pneumonia. Layering hyperdensity within the gallbladder, which may represent stones or sludge. TECHNICAL DOCUMENTATION: Quality ID # 436: Final reports with documentation of one or more dose reduction techniques (e.g., Automated exposure control, adjustment of the mA and/or kV according to patient size, use of iterative reconstruction technique) 2010 [employer]- All Rights Reserved Chest X-Ray 04/17/18 07:00 IMPRESSION: Interval line modification. Esophagus X-Ray 04/20/18 00:00 IMPRESSION: Small hiatal hernia, peptic stricture which impedes passage of 12 mm barium tablet Right lower lobe pneumonia Assessment & Plan - Diagnosis (1) Acute renal failure Qualifiers: Acute renal failure type: unspecified Qualified Code(s): N17.9 - Acute kidney failure, unspecified Is this a current diagnosis for this admission?: Yes (2) Anemia Qualifiers: Other causes of anemia: other cause, not classified Is this a current diagnosis for this admission?: Yes (3) Atrial flutter Qualifiers: Atrial flutter type: atypical Qualified Code(s): I48.4 - Atypical atrial flutter Is this a current diagnosis for this admission?: Yes (4) Malignant neoplasm of lung Qualifiers: Laterality: right Lung location: middle lobe of lung Qualified Code(s): C34.2 - Malignant neoplasm of middle lobe, bronchus or lung Is this a current diagnosis for this admission?: Yes (5) Metabolic acidosis Is this a current diagnosis for this admission?: Yes (6) Pneumonia Qualifiers: Pneumonia type: due to unspecified organism Laterality: right Lung location: middle lobe of lung Qualified Code(s): J18.1 - Lobar pneumonia, unspecified organism Is this a current diagnosis for this admission?: Yes - Time Time Spent with patient: 15-24 minutes Medications reviewed and adjusted accordingly: Yes Anticipated discharge: Home Within: Other - Inpatient Certification Medical Necessity: Need Close Monitoring Due to Risk of Patient Decompensation Post Hospital Care: D/C Coil W[facility] Hand Documentation - Plan Summary Plan Summary: thomas/adela leary
[2018-04-23] MEDS ORDERED: ONDANSETRON HCL INJ/PF 4 MG/2 ML SDV ONE (13:59)
[2018-04-23] MEDS ORDERED: DIPHENHYDRAMINE HCL 50 MG/ML VIAL ONE (13:59)
[2018-04-23] MEDS ORDERED: FENTANYL CITRATE INJ/PF 100 MCG/2 ML AMPUL ONE (14:00)
[2018-04-23] MEDS ORDERED: FLUMAZENIL INJ 0.5 MG/5 ML VIAL ONE (14:00)
[2018-04-23] MEDS ORDERED: NALOXONE HCL INJ/PF 0.4 MG/1 ML SDV ONE (14:00)
[2018-04-23] MEDS ORDERED: MIDAZOLAM 2 MG/2 ML INJ ONE (14:00)
[2018-04-23] MEDS ORDERED: GLUCAGON,HUMAN RECOMB 1 MG INJ ONE (14:01)
[2018-04-23] MEDS ORDERED: EPINEPHRINE INJ 1 MG/10 ML DISP.SYRIN ONE (14:01)
[2018-04-23] MEDS ORDERED: BENZOCAINE 20% AEROSOL SPRAY 60 GM ONE (14:33)
--- NOTE | 2018-04-23 14:53 | PDOC PROGRESS REPORT ---
Subjective Progress Note for:: 04/19/18 Subjective:: Patient seems to be doing better with gradual improvement. Pt is denying any chest arm or neck discomfort. Patient denying any PND, orthopnea. Patient denied any sustained palpitations, dizziness, syncope, near syncope. Patient denying any fever chills. Patient denying any other significant discomfort. Patient is maintaining sinus rhythm. Review of systems: Rest review of systems negative. Medications: Medications have been reviewed. Reason For Visit: POST-OBSTRUCTIVE PNEUMONIA, H/O RUL CANCER Physical Exam Vital Signs: Temp Pulse Resp BP Pulse Ox 97.5 F 86 25 H 125/75 96 04/19/18 19:59 04/19/18 20:00 04/19/18 22:00 04/19/18 21:57 04/19/18 16:00 Intake & Output 04/18/18 04/19/18 04/20/18 06:59 06:59 06:59 Intake Total 3270 3990 Output Total 860 1075 1050 Balance 2410 2915 -1050 Weight 98.6 kg 103.1 kg Exam: GENERAL: well-nourished and in no acute distress. Alert and oriented x3 HEAD: Atraumatic, normocephalic. EYES: Pupils equal round and reactive to light, extraocular movements intact, sclera anicteric, conjunctiva are normal. ENT: TMs normal, nares patent, oropharynx clear without exudates. Moist mucous membranes. No oral ulcerations or bleeding gums noted NECK: supple without lymphadenopathy. Trachea is central. No cervical or axillary lymphadenopathy noted. Carotids are 2+, JVD WNL LUNGS: Respiration seems nonlabored, no significant accessory muscle action noted. Bibasilar fine crackles, right more than left noted. Right basal dullness noted. CHEST: Palpation of the chest wall shows no significant chest wall tenderness. 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 ABDOMEN: Soft, no significant tenderness appreciated, normoactive bowel sounds. No guarding, no rebound. No rigidity noted . No masses appreciated. EXTREMITIES: Pedal pulses are 1-2+, no calf tenderness noted. No clubbing or cyanosis. 1+ pedal edema noted NEUROLOGICAL: Focused neurological exam showed no significant neurologic deficit. Normal speech, no focal weakness appreciated. PSYCH: Normal mood, normal affect. Judgment and insight within normal limits. SKIN: No significant ecchymosis, skin is noted to be warm. MUSCULOSKELETAL EXAM: No significant acute joint swelling noted. Results Laboratory Results: 04/19/18 04:54 04/19/18 04:54 04/19/18 04/19/18 04:54 04:54 WBC 22.8 H RBC 3.03 L Hgb 8.4 L Hct 25.8 L MCV 85 MCH 27.9 MCHC 32.8 RDW 18.9 H Plt Count 115 L Seg Neutrophils % Not Reportable Lymphocytes % Not Reportable Monocytes % Not Reportable Eosinophils % Not Reportable Basophils % Not Reportable Absolute Neutrophils Not Reportable Absolute Lymphocytes Not Reportable Absolute Monocytes Not Reportable Absolute Eosinophils Not Reportable Absolute Basophils Not Reportable Sodium 144.3 Potassium 3.9 Chloride 115 H Carbon Dioxide 16 L Anion Gap 13 BUN 47 H Creatinine 1.86 H Est GFR ( Amer) 43 L Est GFR (Non-Af Amer) 36 L Glucose 185 H Calcium 9.4 Total Bilirubin 4.3 H AST 72 H ALT 43 Alkaline Phosphatase 211 H Total Protein 5.9 L Albumin 2.3 L 04/17/18 04/17/18 04/17/18 06:10 19:55 19:55 Creatine Kinase Cancelled 142 CK-MB (CK-2) Troponin I 0.089 04/17/18 04/18/18 04/18/18 19:55 02:10 02:10 Creatine Kinase 106 CK-MB (CK-2) 1.20 1.26 Troponin I 0.055 0.032 04/18/18 04/18/18 07:10 07:10 Creatine Kinase 91 CK-MB (CK-2) 1.49 Troponin I 0.017 Impressions: Abdomen Ultrasound 04/17/18 00:19 IMPRESSION: 1. Gallbladder sludge with stones. Nuclear medicine hepatobiliary scan may help better delineate. 2. Right-sided renal cyst 3. Otherwise unremarkable ultrasound of the abdomen for acute pathology. Abdomen/Pelvis CT 04/17/18 02:35 IMPRESSION: Partially imaged rounded consolidation involving the right lower lobe which is significantly increased in size compared to the prior. This may represent an enlarging pulmonary mass or pneumonia. Layering hyperdensity within the gallbladder, which may represent stones or sludge. TECHNICAL DOCUMENTATION: Quality ID # 436: Final reports with documentation of one or more dose reduction techniques (e.g., Automated exposure control, adjustment of the mA and/or kV according to patient size, use of iterative reconstruction technique) 2010 [employer]- All Rights Reserved Chest X-Ray 04/17/18 07:00 IMPRESSION: Interval line modification. Assessment & Plan - Diagnosis (1) Atrial flutter Qualifiers: Atrial flutter type: atypical Qualified Code(s): I48.4 - Atypical atrial flutter Is this a current diagnosis for this admission?: Yes (3) Acute renal failure Qualifiers: Acute renal failure type: unspecified Qualified Code(s): N17.9 - Acute kidney failure, unspecified Is this a current diagnosis for this admission?: Yes (4) Elevated bilirubin Is this a current diagnosis for this admission?: Yes (5) Malignant neoplasm of lung Qualifiers: Laterality: right Lung location: middle lobe of lung Qualified Code(s): C34.2 - Malignant neoplasm of middle lobe, bronchus or lung Is this a current diagnosis for this admission?: Yes (6) Pneumonia Qualifiers: Pneumonia type: due to unspecified organism Laterality: right Lung location: middle lobe of lung Qualified Code(s): J18.1 - Lobar pneumonia, unspecified organism Is this a current diagnosis for this admission?: Yes - Notes Notes: Stable [facility]. Atrial flutter: Currently maintaining sinus rhythm. Will consider switch to multaq in view of abnormal liver function and concern about lung condition. Because of chronic kidney disease, it seems only in the safe option other than amiodarone.. Pneumonia: Continue broad-spectrum antibiotic as you are doing. Proteinuria: Patient being well managed by other physician. Acute renal failure: It seems renal functions are gradually improving. Elevated bilirubin: Currently stable. Other physicians are following it. Malignant neoplasm of the lung: Oncology following the patient. We will continue to follow because of heart rhythm problem. Will review 2D echocardiogram results if performed earlier. - Time Time with patient: 15-25 minutes - More than 50% of the time spent coordinating care, discussing management plans with involved caregivers. Management plans discussed with involved personnels. Medical decision making was of moderate to high complexity, patient's has multiple comorbidities. Medications reviewed and adjusted accordingly: Yes
--- NOTE | 2018-04-23 14:59 | Operative Report ---
Operative Report DATE OF SURGERY: 04/23/18 Operative Report: Pre-op diagnosis: History of dysphagia with abnormal barium swallow Post-op diagnosis: 1. Grade C esophagitis 2. Exudative esophagitis ?Candidiasis 3. GE junction stricture Surgery: Esophagogastroduodenoscopy with biopsy Medications: Versed 2mg Fentanyl 50mcg IV push Tissue removed: Antral, gastric body and esophageal biopsy for pathology Procedure: After informed consent obtained from patient, the throat was sprayed with Hurricane and conscious sedation was achieved. The upper endoscope was inserted into the esophagus under direct vision and advanced into the stomach. The duodenum was entered and examined to the second part. Endoscope was then slowly pulled out of the patient as the mucosa was examined into details. Patient tolerated procedure well. Findings Esophagus: The Z line was at 39 cm. He had erosions at the GE junction that involved about 50% of the circumference. There was narrowing at the GE junction but no difficulty in passing the 9.9 mm endoscope. He also had whitish yellowish exudates involving the mid and lower esophagus possibly from candidiasis. There was significant regurgitation to was the end of the procedure Antrum: Normal Body: Residual food in the stomach Fundus: Normal Duodenum first part: Normal Duodenum second part: Normal Plan: Await pathology. Start Prevacid twice a day and consider gastric emptying study to rule out gastroparesis. He will need repeat EGD later on with dilation. He should follow antireflux precautions strictly especially keeping his head elevated in bed, eating smaller more frequent meals and not eating late OPERATION: .
--- NOTE | 2018-04-23 14:59 | PDOC PROGRESS REPORT ---
Subjective Progress Note for:: 04/21/18 Subjective:: Patient seems to be doing better with gradual improvement. Pt is denying any chest arm or neck discomfort. Patient denying any PND, orthopnea. Patient denied any sustained palpitations, dizziness, syncope, near syncope. Patient denying any fever chills. Patient denying any other significant discomfort. Patient is maintaining sinus rhythm. Review of systems: Rest review of systems negative. Medications: Medications have been reviewed. Reason For Visit: POST-OBSTRUCTIVE PNEUMONIA, H/O RUL CANCER Physical Exam Vital Signs: Temp Pulse Resp BP Pulse Ox 97.9 F 98 17 140/69 H 95 04/21/18 20:02 04/21/18 20:16 04/21/18 20:16 04/21/18 20:02 04/21/18 20:16 Intake & Output 04/20/18 04/21/18 04/22/18 06:59 06:59 06:59 Intake Total 473 770 5663 Output Total 1475 750 625 Balance -1275 36 879 Weight 103.5 kg 104.3 kg Exam: GENERAL: well-nourished and in no acute distress. Alert and oriented x3 HEAD: Atraumatic, normocephalic. EYES: Pupils equal round and reactive to light, extraocular movements intact, sclera anicteric, conjunctiva are normal. ENT: TMs normal, nares patent, oropharynx clear without exudates. Moist mucous membranes. No oral ulcerations or bleeding gums noted NECK: supple without lymphadenopathy. Trachea is central. No cervical or axillary lymphadenopathy noted. Carotids are 2+, JVD WNL LUNGS: Respiration seems nonlabored, no significant accessory muscle action noted. Right basal crackles noted. Occasional scattered wheezing noted right side. CHEST: Palpation of the chest wall shows no significant chest wall tenderness. 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 ABDOMEN: Soft, no significant tenderness appreciated, normoactive bowel sounds. No guarding, no rebound. No rigidity noted . No masses appreciated. EXTREMITIES: Pedal pulses are 1-2+, no calf tenderness noted. No clubbing or cyanosis. Trace to 1+ pedal edema noted NEUROLOGICAL: Focused neurological exam showed no significant neurologic deficit. Normal speech, no focal weakness appreciated. PSYCH: Normal mood, normal affect. Judgment and insight within normal limits. SKIN: No significant ecchymosis, skin is noted to be warm. MUSCULOSKELETAL EXAM: No significant acute joint swelling noted. Results Laboratory Results: 04/21/18 05:40 04/21/18 08:30 04/21/18 04/21/18 05:40 08:30 WBC 13.5 H RBC 3.12 L Hgb 8.7 L Hct 26.4 L MCV 85 MCH 28.1 MCHC 33.2 RDW 18.7 H Plt Count 141 L Seg Neutrophils % Not Reportable Lymphocytes % Not Reportable Monocytes % Not Reportable Eosinophils % Not Reportable Basophils % Not Reportable Absolute Neutrophils Not Reportable Absolute Lymphocytes Not Reportable Absolute Monocytes Not Reportable Absolute Eosinophils Not Reportable Absolute Basophils Not Reportable Sodium 146.4 H Potassium 5.0 Chloride 115 H Carbon Dioxide 21 L Anion Gap 10 BUN 46 H Creatinine 1.43 H Est GFR ( Amer) 59 L Est GFR (Non-Af Amer) 49 L Glucose 137 H Calcium 9.6 Total Bilirubin 2.7 H AST 126 H ALT 101 H Alkaline Phosphatase 242 H Total Protein 5.8 L Albumin 2.4 L 04/17/18 04/17/18 04/17/18 06:10 19:55 19:55 Creatine Kinase Cancelled 142 CK-MB (CK-2) Troponin I 0.089 04/17/18 04/18/18 04/18/18 19:55 02:10 02:10 Creatine Kinase 106 CK-MB (CK-2) 1.20 1.26 Troponin I 0.055 0.032 04/18/18 04/18/18 07:10 07:10 Creatine Kinase 91 CK-MB (CK-2) 1.49 Troponin I 0.017 EKG Comments: Patient maintaining sinus rhythm. Tolerating multaq therapy. Impressions: Abdomen Ultrasound 04/17/18 00:19 IMPRESSION: 1. Gallbladder sludge with stones. Nuclear medicine hepatobiliary scan may help better delineate. 2. Right-sided renal cyst 3. Otherwise unremarkable ultrasound of the abdomen for acute pathology. Abdomen/Pelvis CT 04/17/18 02:35 IMPRESSION: Partially imaged rounded consolidation involving the right lower lobe which is significantly increased in size compared to the prior. This may represent an enlarging pulmonary mass or pneumonia. Layering hyperdensity within the gallbladder, which may represent stones or sludge. TECHNICAL DOCUMENTATION: Quality ID # 436: Final reports with documentation of one or more dose reduction techniques (e.g., Automated exposure control, adjustment of the mA and/or kV according to patient size, use of iterative reconstruction technique) 2010 [employer]- All Rights Reserved Chest X-Ray 04/17/18 07:00 IMPRESSION: Interval line modification. Esophagus X-Ray 04/20/18 00:00 IMPRESSION: Small hiatal hernia, peptic stricture which impedes passage of 12 mm barium tablet Right lower lobe pneumonia Assessment & Plan - Diagnosis (1) Atrial flutter Qualifiers: Atrial flutter type: atypical Qualified Code(s): I48.4 - Atypical atrial flutter Is this a current diagnosis for this admission?: Yes (3) Acute renal failure Qualifiers: Acute renal failure type: unspecified Qualified Code(s): N17.9 - Acute kidney failure, unspecified Is this a current diagnosis for this admission?: Yes (4) Elevated bilirubin Is this a current diagnosis for this admission?: Yes (5) Malignant neoplasm of lung Qualifiers: Laterality: right Lung location: middle lobe of lung Qualified Code(s): C34.2 - Malignant neoplasm of middle lobe, bronchus or lung Is this a current diagnosis for this admission?: Yes (6) Pneumonia Qualifiers: Pneumonia type: due to unspecified organism Laterality: right Lung location: middle lobe of lung Qualified Code(s): J18.1 - Lobar pneumonia, unspecified organism Is this a current diagnosis for this admission?: Yes (7) Acute on chronic renal failure Qualifiers: Acute renal failure type: unspecified Chronic kidney disease stage: stage 3 (moderate) Qualified Code(s): N17.9 - Acute kidney failure, unspecified; N18.3 - Chronic kidney disease, stage 3 (moderate); N18.3 - Chronic kidney disease, stage 3 (moderate); N18.3 - Chronic kidney disease, stage 3 (moderate) Is this a current diagnosis for this admission?: Yes - Notes Notes: A 2D echo was eventually completed yesterday. This was reviewed. It shows normal LVEF but RV seems enlarged. Pulmonary hypertension also noted. Continue multaq therapy. Continue maintaining oxygen saturations above 90%. Patient could be considered for sleep evaluation at a later date. Atrial flutter: Patient maintaining sinus rhythm and tolerating multaq therapy. Pneumonia: Continue broad-spectrum antibiotic as you are doing. This is improving. Proteinuria: Patient being well managed by other physician. Acute renal failure: It seems renal functions are gradually improving. Patient renal functions have shown significant improvement. Elevated bilirubin: Currently stable. Other physicians are following it. Liver functions and bilirubin are gradually coming down. Malignant neoplasm of the lung: Oncology following the patient. We will continue to follow because of heart rhythm problem. - Time Time with patient: Greater than 35 minutes - 2D echo results were reviewed with the patient. CODE STATUS was discussed, patient remains full code. Surrogate decision-maker unchanged. Multiple medical problems were addressed. More than 50% of the time spent coordinating care, discussing management plans with involved caregivers. Management plans discussed with involved personnels. Medical decision making was of moderate to high complexity, patient's has multiple comorbidities. Medications reviewed and adjusted accordingly: Yes
--- NOTE | 2018-04-23 15:10 | PDOC PROGRESS REPORT ---
Subjective Progress Note for:: 04/22/18 Subjective:: Patient seems to be doing better with gradual improvement. Pt is denying any chest arm or neck discomfort. Patient denying any PND, orthopnea. Patient denied any sustained palpitations, dizziness, syncope, near syncope. Patient denying any fever chills. Patient denying any other significant discomfort. Patient is maintaining sinus rhythm. Review of systems: Rest review of systems negative. Medications: Medications have been reviewed. Reason For Visit: POST-OBSTRUCTIVE PNEUMONIA, H/O RUL CANCER Physical Exam Vital Signs: Temp Pulse Resp BP Pulse Ox 98.1 F 100 22 H 129/59 H 99 04/22/18 23:06 04/22/18 23:06 04/22/18 23:06 04/22/18 23:06 04/22/18 23:06 Intake & Output 04/21/18 04/22/18 04/23/18 06:59 06:59 06:59 Intake Total 786 1854 222 Output Total 750 625 325 Balance 36 1229 -103 Weight 104.3 kg 104.7 kg Results Laboratory Results: 04/22/18 05:30 04/22/18 05:30 04/22/18 04/22/18 05:30 05:30 WBC 15.9 H RBC 3.09 L Hgb 8.6 L Hct 26.5 L MCV 86 MCH 27.7 MCHC 32.3 RDW 18.6 H Plt Count 158 Seg Neutrophils % Not Reportable Lymphocytes % Not Reportable Monocytes % Not Reportable Eosinophils % Not Reportable Basophils % Not Reportable Absolute Neutrophils Not Reportable Absolute Lymphocytes Not Reportable Absolute Monocytes Not Reportable Absolute Eosinophils Not Reportable Absolute Basophils Not Reportable Sodium 144.7 Potassium 4.7 Chloride 114 H Carbon Dioxide 21 L Anion Gap 10 BUN 46 H Creatinine 1.43 H Est GFR ( Amer) 59 L Est GFR (Non-Af Amer) 49 L Glucose 149 H Calcium 9.6 Total Bilirubin 2.4 H AST 94 H ALT 107 H Alkaline Phosphatase 263 H Total Protein 5.7 L Albumin 2.3 L 04/17/18 04/17/18 04/17/18 06:10 19:55 19:55 Creatine Kinase Cancelled 142 CK-MB (CK-2) Troponin I 0.089 04/17/18 04/18/18 04/18/18 19:55 02:10 02:10 Creatine Kinase 106 CK-MB (CK-2) 1.20 1.26 Troponin I 0.055 0.032 04/18/18 04/18/18 07:10 07:10 Creatine Kinase 91 CK-MB (CK-2) 1.49 Troponin I 0.017 Impressions: Abdomen Ultrasound 04/17/18 00:19 IMPRESSION: 1. Gallbladder sludge with stones. Nuclear medicine hepatobiliary scan may help better delineate. 2. Right-sided renal cyst 3. Otherwise unremarkable ultrasound of the abdomen for acute pathology. Abdomen/Pelvis CT 04/17/18 02:35 IMPRESSION: Partially imaged rounded consolidation involving the right lower lobe which is significantly increased in size compared to the prior. This may represent an enlarging pulmonary mass or pneumonia. Layering hyperdensity within the gallbladder, which may represent stones or sludge. TECHNICAL DOCUMENTATION: Quality ID # 436: Final reports with documentation of one or more dose reduction techniques (e.g., Automated exposure control, adjustment of the mA and/or kV according to patient size, use of iterative reconstruction technique) 2010 [employer]- All Rights Reserved Chest X-Ray 04/17/18 07:00 IMPRESSION: Interval line modification. Esophagus X-Ray 04/20/18 00:00 IMPRESSION: Small hiatal hernia, peptic stricture which impedes passage of 12 mm barium tablet Right lower lobe pneumonia Assessment & Plan - Diagnosis (1) Atrial flutter Qualifiers: Atrial flutter type: atypical Qualified Code(s): I48.4 - Atypical atrial flutter Is this a current diagnosis for this admission?: Yes (3) Acute renal failure Qualifiers: Acute renal failure type: unspecified Qualified Code(s): N17.9 - Acute kidney failure, unspecified Is this a current diagnosis for this admission?: Yes (4) Elevated bilirubin Is this a current diagnosis for this admission?: Yes (5) Malignant neoplasm of lung Qualifiers: Laterality: right Lung location: middle lobe of lung Qualified Code(s): C34.2 - Malignant neoplasm of middle lobe, bronchus or lung Is this a current diagnosis for this admission?: Yes (6) Acute on chronic renal failure Qualifiers: Acute renal failure type: unspecified Chronic kidney disease stage: stage 3 (moderate) Qualified Code(s): N17.9 - Acute kidney failure, unspecified; N18.3 - Chronic kidney disease, stage 3 (moderate); N18.3 - Chronic kidney disease, stage 3 (moderate); N18.3 - Chronic kidney disease, stage 3 (moderate) Is this a current diagnosis for this admission?: Yes (7) Pneumonia Qualifiers: Pneumonia type: due to unspecified organism Laterality: right Lung location: middle lobe of lung Qualified Code(s): J18.1 - Lobar pneumonia, unspecified organism Is this a current diagnosis for this admission?: Yes - Notes Notes: Atrial flutter: Patient maintaining sinus rhythm and tolerating multaq therapy. Pneumonia: Continue broad-spectrum antibiotic as you are doing. This is improving. Proteinuria: Patient being well managed by other physician. Acute renal failure: It seems renal functions are gradually improving. Patient renal functions have shown significant improvement. Elevated bilirubin: Currently stable. Other physicians are following it. Liver functions and bilirubin are gradually coming down. There has been significant improvement in renal functions. Malignant neoplasm of the lung: Oncology following the patient. We will continue to follow because of heart rhythm problem. 2D echo results reviewed. Patient has remained very stable from cardiac standpoint. Continue multaq therapy for at least a month if not longer. Patient can follow-up with me as an outpatient. Will sign off. Please reconsult if needed. - Time Time with patient: 15-25 minutes Medications reviewed and adjusted accordingly: Yes
[2018-04-23] MEDS: LANSOPRAZOLE 30 MG TAB.RAP.DR PO SCH (17:17)
[2018-04-23] MEDS: CEFEPIME 1 GM/D5W RTU 1 GM/50 ML RTUPB IV SCH (21:10)
[2018-04-24] MEDS: IPRATROPIUM/ALBUTEROL 0.5-2.5 MG/3 ML AMPUL NEB PRN (01:56)
[2018-04-24] MEDS: METHYLPREDNISOLONE INJ 125 MG/2 ML SDV IV SCH ×3 (05:52→21:23)
[2018-04-24] MEDS: HEPARIN SOD (PORCINE) 5,000 UNIT/ML 1 ML SYRINGE SUBCUT SCH ×3 (05:52→21:23)
[2018-04-24] MEDS: GUAIFENESIN/D-METHORPHAN (200-20 MG) SYRUP 10 ML PO PRN ×2 (06:02→14:57)
[2018-04-24 07:03] LABS: HEMATOCRIT 26.1 % (37.9-51.0); HEMOGLOBIN 8.5 g/dL (13.5-17.0); MEAN CORPUSCULAR HEMOGLOBIN 28.2 pg (27.0-33.4); MEAN CORPUSCULAR HGB CONC 32.6 g/dL (32.0-36.0); MEAN CORPUSCULAR VOLUME 87 fl (80-97); PLATELET COUNT 145 10^3/uL (150-450); RED BLOOD COUNT 3.01 10^6/uL (4.35-5.55); RED CELL DISTRIBUTION WIDTH 17.9 % (11.5-14.0); WHITE BLOOD COUNT 16.7 10^3/uL (4.0-10.5)
[2018-04-24 07:31] LABS: ALANINE AMINOTRANSFERASE 92 U/L (21-72); ALBUMIN 2.3 g/dL (3.5-5.0); ALKALINE PHOSPHATASE 219 U/L (38-126); ANION GAP 10 (5-19); ASPARTATE AMINO TRANSFERASE 53 U/L (17-59); BILIRUBIN,DIRECT 1.1 mg/dL (0.0-0.4); BILIRUBIN,TOTAL 1.6 mg/dL (0.2-1.3); BLOOD UREA NITROGEN 38 mg/dL (7-20); CALCIUM 9.7 mg/dL (8.4-10.2); CARBON DIOXIDE 23 mmol/L (22-30); CHLORIDE 110 mmol/L (98-107); GLUCOSE 229 mg/dL (75-110); POTASSIUM 4.9 mmol/L (3.6-5.0); SODIUM 143.1 mmol/L (137-145); TOTAL PROTEIN 5.4 g/dL (6.3-8.2)
[2018-04-24 08:04] LABS: ABSOLUTE LYMPHOCYTES# (MANUAL) 0.5 10^3/uL (0.5-4.7); ABSOLUTE MONOCYTES # (MANUAL) 0.3 10^3/uL (0.1-1.4); ABSOLUTE NEUTROPHILS# (MANUAL) 15.9 10^3/uL (1.7-8.2); BASOPHILS % (MANUAL) 0 % (0-2); EOSINOPHILS % (MANUAL) 0 % (0-6); LYMPHOCYTES % (MANUAL) 3 % (13-45); MONOCYTES % (MANUAL) 2 % (3-13); SEGMENTED NEUTROPHILS % (MAN) 95 % (42-78); TOTAL CELLS COUNTED 100
[2018-04-24 08:07] LABS: ANISOCYTOSIS 1+; PLATELET COMMENT ADEQUATE; POLYCHROMASIA SLIGHT; TOXIC GRANULATION 1+
[2018-04-24] MEDS: LEVALBUTEROL HCL NEB 1.25 MG/3 ML AMPUL NEB SCH ×3 (08:09→20:56)
[2018-04-24] MEDS: LANSOPRAZOLE 30 MG TAB.RAP.DR PO SCH ×2 (08:51→15:49)
[2018-04-24] MEDS: BACLOFEN 10 MG TABLET PO PRN (08:53)
--- NOTE | 2018-04-24 10:11 | PDOC PROGRESS REPORT ---
Subjective Progress Note for:: 04/24/18 Subjective:: Patient had EGD, there was irritation at the GE junction, with ulceration, per gastroenterology worrisome for possible candidal esophagitis. I discussed her case with pharmacy as well as Dr. Macias. There is some interaction with Diflucan and Multaq. I reviewed a previous EKG with QTC noting 500. There could be increased QT prolongation as well as increased levels of drug. There also is transaminase elevation. So overall unsure of Diflucan would be well- tolerated at this point. However, Dr. Macias will see him tomorrow and decide whether multaq can be held for a few days while we treat the candidal esophagitis. Otherwise he seems to be doing better from a lung status. Transaminases are improving. Kidney function continues to improve. Reason For Visit: POST-OBSTRUCTIVE PNEUMONIA, H/O RUL CANCER Physical Exam Vital Signs: Temp Pulse Resp BP Pulse Ox 97.8 F 86 16 139/79 H 100 04/24/18 08:00 04/24/18 08:09 04/24/18 08:09 04/24/18 08:00 04/24/18 08:00 Intake & Output 04/23/18 04/24/18 04/25/18 06:59 06:59 06:59 Intake Total 1005 1753 Output Total 725 925 Balance 280 828 Weight 104.6 kg 107.4 kg General appearance: PRESENT: no acute distress, well-developed, well-nourished Head exam: PRESENT: atraumatic, normocephalic Eye exam: PRESENT: conjunctiva pink, EOMI, PERRLA. ABSENT: scleral icterus Ear exam: PRESENT: normal external ear exam Mouth exam: PRESENT: moist, tongue midline Neck exam: ABSENT: carotid bruit, JVD, lymphadenopathy, thyromegaly Respiratory exam: PRESENT: clear to auscultation jim. ABSENT: rales, rhonchi, wheezes Cardiovascular exam: PRESENT: RRR. ABSENT: diastolic murmur, rubs, systolic murmur Pulses: PRESENT: normal dorsalis pedis pul Vascular exam: PRESENT: normal capillary refill GI/Abdominal exam: PRESENT: normal bowel sounds, soft. ABSENT: distended, guarding, mass, organolmegaly, rebound, tenderness Rectal exam: PRESENT: deferred Extremities exam: PRESENT: full ROM. ABSENT: calf tenderness, clubbing, pedal edema Neurological exam: PRESENT: alert, awake, oriented to person, oriented to place , oriented to time, oriented to situation, CN II-XII grossly intact. ABSENT: motor sensory deficit Psychiatric exam: PRESENT: appropriate affect, normal mood. ABSENT: homicidal ideation, suicidal ideation Skin exam: PRESENT: dry, intact, warm. ABSENT: cyanosis, rash Results Laboratory Results: 04/24/18 05:55 04/24/18 05:55 04/24/18 04/24/18 05:55 05:55 WBC 16.7 H RBC 3.01 L Hgb 8.5 L Hct 26.1 L MCV 87 MCH 28.2 MCHC 32.6 RDW 17.9 H Plt Count 145 L Seg Neutrophils % Not Reportable Lymphocytes % Not Reportable Monocytes % Not Reportable Eosinophils % Not Reportable Basophils % Not Reportable Absolute Neutrophils Not Reportable Absolute Lymphocytes Not Reportable Absolute Monocytes Not Reportable Absolute Eosinophils Not Reportable Absolute Basophils Not Reportable Sodium 143.1 Potassium 4.9 Chloride 110 H Carbon Dioxide 23 Anion Gap 10 BUN 38 H Creatinine 1.25 Est GFR ( Amer) > 60 Est GFR (Non-Af Amer) 57 L Glucose 229 H Calcium 9.7 Total Bilirubin 1.6 H AST 53 ALT 92 H Alkaline Phosphatase 219 H Total Protein 5.4 L Albumin 2.3 L 04/20/18 02:45 Sputum Gram Stain - Final 04/20/18 02:45 Sputum Sputum Culture - Final NORMAL JOSE MARTIN 04/17/18 04/17/18 04/17/18 06:10 19:55 19:55 Creatine Kinase Cancelled 142 CK-MB (CK-2) Troponin I 0.089 04/17/18 04/18/18 04/18/18 19:55 02:10 02:10 Creatine Kinase 106 CK-MB (CK-2) 1.20 1.26 Troponin I 0.055 0.032 04/18/18 04/18/18 07:10 07:10 Creatine Kinase 91 CK-MB (CK-2) 1.49 Troponin I 0.017 Impressions: Abdomen Ultrasound 04/17/18 00:19 IMPRESSION: 1. Gallbladder sludge with stones. Nuclear medicine hepatobiliary scan may help better delineate. 2. Right-sided renal cyst 3. Otherwise unremarkable ultrasound of the abdomen for acute pathology. Abdomen/Pelvis CT 04/17/18 02:35 IMPRESSION: Partially imaged rounded consolidation involving the right lower lobe which is significantly increased in size compared to the prior. This may represent an enlarging pulmonary mass or pneumonia. Layering hyperdensity within the gallbladder, which may represent stones or sludge. TECHNICAL DOCUMENTATION: Quality ID # 436: Final reports with documentation of one or more dose reduction techniques (e.g., Automated exposure control, adjustment of the mA and/or kV according to patient size, use of iterative reconstruction technique) 2010 [employer]- All Rights Reserved Chest X-Ray 04/17/18 07:00 IMPRESSION: Interval line modification. Esophagus X-Ray 04/20/18 00:00 IMPRESSION: Small hiatal hernia, peptic stricture which impedes passage of 12 mm barium tablet Right lower lobe pneumonia Assessment & Plan - Diagnosis (1) Pneumonia Qualifiers: Pneumonia type: due to unspecified organism Laterality: right Lung location: middle lobe of lung Qualified Code(s): J18.1 - Lobar pneumonia, unspecified organism Is this a current diagnosis for this admission?: Yes Plan: Continue with current antibiotic therapy. Once we are ready for discharge, plan for continuation of antibiotics for a period of time at home. (2) Malignant neoplasm of lung Qualifiers: Laterality: right Lung location: middle lobe of lung Qualified Code(s): C34.2 - Malignant neoplasm of middle lobe, bronchus or lung Is this a current diagnosis for this admission?: Yes Plan: Patient will need steroid taper at home, continue current dose of Solu-Medrol, ultimately when were getting ready to discharge him home he will need prednisone 1 mg/kg daily. I will taper it as an outpatient. He will need a 3- 4 week taper. (3) Acute kidney injury Is this a current diagnosis for this admission?: Yes Plan: Improved (4) Elevated bilirubin Is this a current diagnosis for this admission?: Yes Plan: Improving (5) Esophageal stricture Is this a current diagnosis for this admission?: Yes Plan: Possibly secondary to candidal esophagitis, will have Dr. Macias see patient tomorrow and decide whether antiarrhythmic can be stopped to allow the Diflucan therapy. - Time Time Spent with patient: 35 or more minutes - Inpatient Certification Based on my medical assessment, after consideration of the patient's comorbidities, presenting symptoms, or acuity I expect that the services needed warrant INPATIENT care.: Yes I certify that my determination is in accordance with my understanding of Medicare's requirements for reasonable and necessary INPATIENT services [42 CFR 412.3e].: Yes Medical Necessity: Need For Continuous Telemetry Monitoring, Need for IV Antibiotics, Risk of Complication if Not Cared For in Hospital
[2018-04-24] MEDS: POLYETHYLENE GLYCOL 3350 POWDER 17 GM/1 PACKET PO SCH (10:30)
[2018-04-24] MEDS: SODIUM BICARBONATE 650 MG TABLET PO SCH (10:34)
[2018-04-24] MEDS: DRONEDARONE HYDROCHLORIDE 400 MG TABLET PO SCH ×2 (10:34→17:46)
[2018-04-24] MEDS: GUAIFENESIN 600 MG TABLET.SA PO SCH ×2 (10:34→21:23)
--- NOTE | 2018-04-24 10:43 | PDOC PROGRESS REPORT ---
Subjective Progress Note for:: 04/24/18 Subjective:: Patient is currently doing well Patient of endoscopy done was suspicious some candidiasis Patient's ALT is mildly elevated Patient otherwise denied any abdominal pain no nausea no vomiting Reason For Visit: POST-OBSTRUCTIVE PNEUMONIA, H/O RUL CANCER Physical Exam Vital Signs: Temp Pulse Resp BP Pulse Ox 97.8 F 86 16 139/79 H 100 04/24/18 08:00 04/24/18 08:09 04/24/18 08:09 04/24/18 08:00 04/24/18 08:00 Intake & Output 04/23/18 04/24/18 04/25/18 06:59 06:59 06:59 Intake Total 1005 1753 Output Total 725 925 Balance 280 828 Weight 104.6 kg 107.4 kg General appearance: PRESENT: no acute distress, well-developed, well-nourished Head exam: PRESENT: atraumatic, normocephalic Eye exam: PRESENT: conjunctiva pink, EOMI, PERRLA. ABSENT: scleral icterus Ear exam: PRESENT: normal external ear exam Mouth exam: PRESENT: moist, tongue midline Neck exam: PRESENT: full ROM. ABSENT: carotid bruit, JVD, lymphadenopathy, thyromegaly Respiratory exam: PRESENT: clear to auscultation jim Cardiovascular exam: PRESENT: RRR. ABSENT: diastolic murmur, rubs, systolic murmur Pulses: PRESENT: normal dorsalis pedis pul, +2 pedal pulses bilateral Vascular exam: PRESENT: normal capillary refill GI/Abdominal exam: PRESENT: normal bowel sounds, soft. ABSENT: distended, guarding, mass, organolmegaly, rebound, tenderness Rectal exam: PRESENT: deferred Extremities exam: ABSENT: pedal edema Neurological exam: PRESENT: alert, awake, oriented to person, oriented to place , oriented to time, oriented to situation, CN II-XII grossly intact. ABSENT: motor sensory deficit Psychiatric exam: PRESENT: appropriate affect, normal mood. ABSENT: homicidal ideation, suicidal ideation Skin exam: PRESENT: dry, intact, warm. ABSENT: cyanosis, rash Results Laboratory Results: 04/24/18 05:55 04/24/18 05:55 04/24/18 04/24/18 05:55 05:55 WBC 16.7 H RBC 3.01 L Hgb 8.5 L Hct 26.1 L MCV 87 MCH 28.2 MCHC 32.6 RDW 17.9 H Plt Count 145 L Seg Neutrophils % Not Reportable Lymphocytes % Not Reportable Monocytes % Not Reportable Eosinophils % Not Reportable Basophils % Not Reportable Absolute Neutrophils Not Reportable Absolute Lymphocytes Not Reportable Absolute Monocytes Not Reportable Absolute Eosinophils Not Reportable Absolute Basophils Not Reportable Sodium 143.1 Potassium 4.9 Chloride 110 H Carbon Dioxide 23 Anion Gap 10 BUN 38 H Creatinine 1.25 Est GFR ( Amer) > 60 Est GFR (Non-Af Amer) 57 L Glucose 229 H Calcium 9.7 Total Bilirubin 1.6 H AST 53 ALT 92 H Alkaline Phosphatase 219 H Total Protein 5.4 L Albumin 2.3 L 04/20/18 02:45 Sputum Gram Stain - Final 04/20/18 02:45 Sputum Sputum Culture - Final NORMAL JOSE MARTIN 04/17/18 04/17/18 04/17/18 06:10 19:55 19:55 Creatine Kinase Cancelled 142 CK-MB (CK-2) Troponin I 0.089 04/17/18 04/18/18 04/18/18 19:55 02:10 02:10 Creatine Kinase 106 CK-MB (CK-2) 1.20 1.26 Troponin I 0.055 0.032 04/18/18 04/18/18 07:10 07:10 Creatine Kinase 91 CK-MB (CK-2) 1.49 Troponin I 0.017 Impressions: Abdomen Ultrasound 04/17/18 00:19 IMPRESSION: 1. Gallbladder sludge with stones. Nuclear medicine hepatobiliary scan may help better delineate. 2. Right-sided renal cyst 3. Otherwise unremarkable ultrasound of the abdomen for acute pathology. Abdomen/Pelvis CT 04/17/18 02:35 IMPRESSION: Partially imaged rounded consolidation involving the right lower lobe which is significantly increased in size compared to the prior. This may represent an enlarging pulmonary mass or pneumonia. Layering hyperdensity within the gallbladder, which may represent stones or sludge. TECHNICAL DOCUMENTATION: Quality ID # 436: Final reports with documentation of one or more dose reduction techniques (e.g., Automated exposure control, adjustment of the mA and/or kV according to patient size, use of iterative reconstruction technique) 2010 [employer]- All Rights Reserved Chest X-Ray 04/17/18 07:00 IMPRESSION: Interval line modification. Esophagus X-Ray 04/20/18 00:00 IMPRESSION: Small hiatal hernia, peptic stricture which impedes passage of 12 mm barium tablet Right lower lobe pneumonia Assessment & Plan - Diagnosis (1) Acute renal failure Qualifiers: Acute renal failure type: unspecified Qualified Code(s): N17.9 - Acute kidney failure, unspecified Is this a current diagnosis for this admission?: Yes Plan: Currently all stable (2) Anemia Qualifiers: Other causes of anemia: other cause, not classified Is this a current diagnosis for this admission?: Yes (3) Atrial flutter Qualifiers: Atrial flutter type: atypical Qualified Code(s): I48.4 - Atypical atrial flutter Is this a current diagnosis for this admission?: Yes (4) Malignant neoplasm of lung Qualifiers: Laterality: right Lung location: middle lobe of lung Qualified Code(s): C34.2 - Malignant neoplasm of middle lobe, bronchus or lung Is this a current diagnosis for this admission?: Yes (5) Metabolic acidosis Is this a current diagnosis for this admission?: Yes (6) Pneumonia Qualifiers: Pneumonia type: due to unspecified organism Laterality: right Lung location: middle lobe of lung Qualified Code(s): J18.1 - Lobar pneumonia, unspecified organism Is this a current diagnosis for this admission?: Yes (7) Abnormal LFTs Is this a current diagnosis for this admission?: Yes Plan: Follow-up with Dr. Espinosa - Time Time Spent with patient: 15-24 minutes Medications reviewed and adjusted accordingly: Yes Anticipated discharge: Home Within: Other - Inpatient Certification Medical Necessity: Need Close Monitoring Due to Risk of Patient Decompensation Post Hospital Care: D/C [employer] Support Specialist Documentation - Plan Summary Plan Summary: Continues her current medications
[2018-04-24] MEDS: CEFEPIME 1 GM/D5W RTU 1 GM/50 ML RTUPB IV SCH (21:23)
[2018-04-25] MEDS: METHYLPREDNISOLONE INJ 125 MG/2 ML SDV IV SCH ×3 (06:07→22:47)
[2018-04-25] MEDS: HEPARIN SOD (PORCINE) 5,000 UNIT/ML 1 ML SYRINGE SUBCUT SCH ×3 (06:08→22:48)
[2018-04-25 06:55] LABS: HEMOGLOBIN 8.6 g/dL (13.5-17.0); MEAN CORPUSCULAR HGB CONC 31.9 g/dL (32.0-36.0); MEAN CORPUSCULAR VOLUME 88 fl (80-97); PLATELET COUNT 155 10^3/uL (150-450); RED BLOOD COUNT 3.07 10^6/uL (4.35-5.55); RED CELL DISTRIBUTION WIDTH 18.2 % (11.5-14.0); WHITE BLOOD COUNT 19.2 10^3/uL (4.0-10.5)
[2018-04-25 07:04] LABS: ABSOLUTE LYMPHOCYTES# (MANUAL) 0.6 10^3/uL (0.5-4.7); ABSOLUTE MONOCYTES # (MANUAL) 0.2 10^3/uL (0.1-1.4); ABSOLUTE NEUTROPHILS# (MANUAL) 18.4 10^3/uL (1.7-8.2); BAND NEUTROPHILS % (MANUAL) 1 % (3-5); BASOPHILS % (MANUAL) 0 % (0-2); EOSINOPHILS % (MANUAL) 0 % (0-6); LYMPHOCYTES % (MANUAL) 3 % (13-45); MONOCYTES % (MANUAL) 1 % (3-13); SEGMENTED NEUTROPHILS % (MAN) 95 % (42-78); TOTAL CELLS COUNTED 100
[2018-04-25 07:07] LABS: ANISOCYTOSIS 2+; POIKILOCYTOSIS 1+
[2018-04-25 07:08] LABS: POLYCHROMASIA SLIGHT; TARGET CELLS 1+
[2018-04-25 07:09] LABS: PLATELET COMMENT ADEQUATE
[2018-04-25] MEDS: LEVALBUTEROL HCL NEB 1.25 MG/3 ML AMPUL NEB SCH ×3 (08:36→20:02)
--- NOTE | 2018-04-25 09:07 | PDOC PROGRESS REPORT ---
Subjective Progress Note for:: 04/25/18 Subjective:: Patient is doing very well, labs are improving, he seems to be getting back to his baseline. Reason For Visit: POST-OBSTRUCTIVE PNEUMONIA, H/O RUL CANCER Physical Exam Vital Signs: Temp Pulse Resp BP Pulse Ox 98.2 F 79 16 143/72 H 97 04/25/18 07:40 04/25/18 08:39 04/25/18 08:39 04/25/18 07:40 04/25/18 08:39 Intake & Output 04/24/18 04/25/18 04/26/18 06:59 06:59 06:59 Intake Total 1803 1386 Output Total 925 1675 Balance 878 -289 Weight 107.4 kg 109.1 kg General appearance: PRESENT: no acute distress, well-developed, well-nourished Head exam: PRESENT: atraumatic, normocephalic Eye exam: PRESENT: conjunctiva pink, EOMI, PERRLA. ABSENT: scleral icterus Ear exam: PRESENT: normal external ear exam Mouth exam: PRESENT: moist, tongue midline Neck exam: ABSENT: carotid bruit, JVD, lymphadenopathy, thyromegaly Respiratory exam: PRESENT: clear to auscultation jim. ABSENT: rales, rhonchi, wheezes Cardiovascular exam: PRESENT: RRR. ABSENT: diastolic murmur, rubs, systolic murmur Pulses: PRESENT: normal dorsalis pedis pul Vascular exam: PRESENT: normal capillary refill GI/Abdominal exam: PRESENT: normal bowel sounds, soft. ABSENT: distended, guarding, mass, organolmegaly, rebound, tenderness Rectal exam: PRESENT: deferred Extremities exam: PRESENT: full ROM. ABSENT: calf tenderness, clubbing, pedal edema Neurological exam: PRESENT: alert, awake, oriented to person, oriented to place , oriented to time, oriented to situation, CN II-XII grossly intact. ABSENT: motor sensory deficit Psychiatric exam: PRESENT: appropriate affect, normal mood. ABSENT: homicidal ideation, suicidal ideation Skin exam: PRESENT: dry, intact, warm. ABSENT: cyanosis, rash Results Laboratory Results: 04/25/18 06:15 04/24/18 05:55 04/25/18 06:15 WBC 19.2 H RBC 3.07 L Hgb 8.6 L Hct 27.0 L MCV 88 MCH 28.0 MCHC 31.9 L RDW 18.2 H Plt Count 155 Seg Neutrophils % Not Reportable Lymphocytes % Not Reportable Monocytes % Not Reportable Eosinophils % Not Reportable Basophils % Not Reportable Absolute Neutrophils Not Reportable Absolute Lymphocytes Not Reportable Absolute Monocytes Not Reportable Absolute Eosinophils Not Reportable Absolute Basophils Not Reportable 04/17/18 04/17/18 04/17/18 06:10 19:55 19:55 Creatine Kinase Cancelled 142 CK-MB (CK-2) Troponin I 0.089 04/17/18 04/18/18 04/18/18 19:55 02:10 02:10 Creatine Kinase 106 CK-MB (CK-2) 1.20 1.26 Troponin I 0.055 0.032 04/18/18 04/18/18 07:10 07:10 Creatine Kinase 91 CK-MB (CK-2) 1.49 Troponin I 0.017 Impressions: Abdomen Ultrasound 04/17/18 00:19 IMPRESSION: 1. Gallbladder sludge with stones. Nuclear medicine hepatobiliary scan may help better delineate. 2. Right-sided renal cyst 3. Otherwise unremarkable ultrasound of the abdomen for acute pathology. Abdomen/Pelvis CT 04/17/18 02:35 IMPRESSION: Partially imaged rounded consolidation involving the right lower lobe which is significantly increased in size compared to the prior. This may represent an enlarging pulmonary mass or pneumonia. Layering hyperdensity within the gallbladder, which may represent stones or sludge. TECHNICAL DOCUMENTATION: Quality ID # 436: Final reports with documentation of one or more dose reduction techniques (e.g., Automated exposure control, adjustment of the mA and/or kV according to patient size, use of iterative reconstruction technique) 2010 [employer]- All Rights Reserved Chest X-Ray 04/17/18 07:00 IMPRESSION: Interval line modification. Esophagus X-Ray 04/20/18 00:00 IMPRESSION: Small hiatal hernia, peptic stricture which impedes passage of 12 mm barium tablet Right lower lobe pneumonia Assessment & Plan - Diagnosis (1) Pneumonia Qualifiers: Pneumonia type: due to unspecified organism Laterality: right Lung location: middle lobe of lung Qualified Code(s): J18.1 - Lobar pneumonia, unspecified organism Is this a current diagnosis for this admission?: Yes Plan: Improved, doing well (2) Malignant neoplasm of lung Qualifiers: Laterality: right Lung location: middle lobe of lung Qualified Code(s): C34.2 - Malignant neoplasm of middle lobe, bronchus or lung Is this a current diagnosis for this admission?: Yes Plan: As noted previously, patient does have transaminitis as well as possible pneumonitis that may have resulted from immunotherapy, plan for prolonged steroid taper, upon discharge patient will need prednisone 100 mg daily, I have asked his PCP to give him 1-2 weeks worth of that, and I will plan on tapering it as an outpatient. (3) Acute kidney injury Is this a current diagnosis for this admission?: Yes Plan: Improved (4) Elevated bilirubin Is this a current diagnosis for this admission?: Yes Plan: Improving (5) Esophageal stricture Is this a current diagnosis for this admission?: Yes Plan: Possibly secondary to candidal esophagitis, I have asked Dr. Macias, he agrees that we can discontinue the MULTAQ for now and initiate Diflucan for this. He will need 14 days of Diflucan. - Time Time Spent with patient: 35 or more minutes - Inpatient Certification Based on my medical assessment, after consideration of the patient's comorbidities, presenting symptoms, or acuity I expect that the services needed warrant INPATIENT care.: Yes I certify that my determination is in accordance with my understanding of Medicare's requirements for reasonable and necessary INPATIENT services [42 CFR 412.3e].: Yes Medical Necessity: Need for IV Antibiotics
[2018-04-25] MEDS ORDERED: FLUCONAZOLE 100 MG in CONTAINER,EMPTY 1 EACH IV ONE (11:00)
[2018-04-25] MEDS: SODIUM BICARBONATE 650 MG TABLET PO SCH (11:32)
[2018-04-25] MEDS: POLYETHYLENE GLYCOL 3350 POWDER 17 GM/1 PACKET PO SCH (11:32)
[2018-04-25] MEDS: LANSOPRAZOLE 30 MG TAB.RAP.DR PO SCH ×2 (11:32→22:48)
[2018-04-25] MEDS: GUAIFENESIN 600 MG TABLET.SA PO SCH ×2 (11:32→22:48)
--- NOTE | 2018-04-25 20:34 | PDOC DISCHARGE SUMMARY ---
General - Admit/Disc Date/PCP Admission Date/Primary Care Provider: 04/17/18 05:08 SADIE MCCRAY MD Discharge Date: 04/26/18 - Discharge Diagnosis (1) Acute hypoxemic respiratory failure Is this a current diagnosis for this admission?: Yes (2) Sepsis Is this a current diagnosis for this admission?: Yes (3) Acute kidney injury Is this a current diagnosis for this admission?: Yes (4) Malignant neoplasm of lung Is this a current diagnosis for this admission?: Yes (5) Hypotension Is this a current diagnosis for this admission?: Yes (6) Pneumonia Is this a current diagnosis for this admission?: Yes (7) Anemia Is this a current diagnosis for this admission?: Yes (8) Thrombocytopenia Is this a current diagnosis for this admission?: Yes (9) Atrial flutter Is this a current diagnosis for this admission?: Yes (10) Cystic kidney disease Is this a current diagnosis for this admission?: Yes (11) Elevated bilirubin Is this a current diagnosis for this admission?: Yes (12) Septic shock Is this a current diagnosis for this admission?: Yes (13) Helicobacter positive gastritis Is this a current diagnosis for this admission?: Yes (14) Karen esophagitis Is this a current diagnosis for this admission?: Yes (15) Steroid-induced hyperglycemia Is this a current diagnosis for this admission?: Yes (16) COPD with acute exacerbation Is this a current diagnosis for this admission?: Yes - Additional Information Resuscitation Status: Full Code Prescriptions: Ipratropium/Albuterol Sulfate [Duoneb 3 ml Ampul] 3 ml NEB Q4HP PRN #120 vial.neb PRN Reason: Fluticasone/Umeclidin/Vilanter [Trelegy 100-62.5-25 Mcg Ellipta 14 Dose/Dpi] 1 each NEB DAILY #90 inhaler Lansoprazole/Amoxiciln/Clarith [Xirgyabpiuq-Kfsdnmsy-Fynjkeqsu] 1 each PO BID # 28 combo..pkg Losartan/Hydrochlorothiazide [Losartan-Hctz 100-25 mg Tab] 1 each PO DAILY #90 tablet Metformin HCl [Metformin HCl ER] 1,000 mg PO DAILY #90 [id number] Nystatin 100,000 unit PO QID #336 ml Prednisone 100 mg PO DAILY #90 tablet Home Medications: Atenolol [Tenormin 50 mg Tablet] 50 mg PO DAILY 04/17/18 Atorvastatin Calcium [Lipitor 40 mg Tablet] 40 mg PO QHS 04/17/18 Oxycodone HCl [Oxy-Ir 5 mg Tablet] 5 mg PO Q12HP PRN 04/17/18 Valsartan/Hydrochlorothiazide [Valsartan-Hctz 320-25 mg Tab] 1 tab PO DAILY 01/28 Fluticasone/Umeclidin/Vilanter [Trelegy 100-62.5-25 Mcg Ellipta 14 Dose/Dpi] 1 each NEB DAILY #90 inhaler 04/25/18 Ipratropium/Albuterol Sulfate [Duoneb 3 ml Ampul] 3 ml NEB Q4HP PRN #120 vial.neb 04/25/18 Lansoprazole/Amoxiciln/Clarith [Ievervfyola-Byjoxxsd-Qawytjpvp] 1 each PO BID # 28 combo..pkg 04/25/18 Losartan/Hydrochlorothiazide [Losartan-Hctz 100-25 mg Tab] 1 each PO DAILY #90 tablet 04/25/18 Metformin HCl [Metformin HCl ER] 1,000 mg PO DAILY #90 [id number] 04/25/18 Nystatin 100,000 unit PO QID #336 ml 04/25/18 Prednisone 100 mg PO DAILY #90 tablet 04/25/18 History of Present Illness History of Present Illness: MEG MONTGOMERY is a 73 year old male, he came to the emergency room for evaluation of fever, shortness of breath, abdominal pain. He has a history of malignant neoplasm of the lung follow-up with oncologist Dr. Chen, he had CT chest with CT scan of the abdomen and pelvis with IV contrast on 2017, the CT chest showed numerous bilateral pulmonary nodules progressive in size the largest is in the left lower lobe it measures 1.4 cm in transverse dimension, this is a recurrent lung cancer he underwent right upper lobe lobectomy about a year ago. A chest x-ray was done in the ER earlier this morning chest x-ray showed a new dense consolidation in the right middle and lower lobe worrisome for postobstructive pneumonia, is known to have a right hilar tumor from previous CT scan chest that was done on 02/16/2018. In the emergency room he was evaluated and managed appropriately, blood pressure was low when he arrived he was given boluses of normal saline in the ER and timely IV antibiotic was administered. Patient is known to have chronic kidney disease due to polycystic kidney, initially when he arrived in the ER it was felt that he could be treated in intermediate care unit but developed low blood pressure and he is being transferred to ICU. He has severe leukocytosis subsequent hemogram showed anemia, thrombocytopenia he met sepsis criteria with fever leukocytosis low blood pressure acute on chronic kidney disease. The respiration was initially supported with noninvasive positive pressure ventilation, BiPAP. Hospital Course Hospital Course: Patient was admitted for the management of sepsis syndrome due to postobstructive pneumonia. He has a history of malignant neoplasm of the lung, recurrent, presently on immunotherapy with experimental drug he presented with respiratory symptoms, shortness of breath cough, hypoxemia requiring Noninvasive positive pressure ventilation. He was empirically treated with IV antibiotic, he was seen by oncology Dr. Chen.He was treated with IV Solu- Medrol, bronchodilators hospital course was eventful complicated with acute kidney injury, low blood pressure, dysphagia. He was seen by GI Dr. Espinosa he underwent upper endoscopy before GI consultation was obtained. barium swallow was obtained, it demonstrated narrowing of the distal esophagus, he underwent upper endoscopy he was found to have karen esophagitis and stricture of the GE junction, biopsy of the stomach mucosa demonstrated a "Helicobacter species with inflammation He also had episode of Airway obstruction with wheezing requiring bronchodilators with DuoNeb. The CAT scan of the lung demonstrated pneumonia the oncologist felt that the findings on the CT scan of the lung could also be from the new experimental drug he was on for the lung cancer.He was treated with high-dose steroid Solu-Medrol 125 mg every 6 hours. There was associated acute kidney injury felt to be due to prerenal, the kidney function improved and normalized.He also had atrial flutter which I ventricular rate treated with amiodarone this was later changed to multag. He was initially treated with Diflucan for the Karen esophagitis but there is drug interaction between Diflucan and multag. He was supposed to be discharged home on Diflucan for 2 weeks for the treatment of the Karen esophagitis but this was changed to nystatin solution because Diflucan interact with lansoprazole which is part of the treatment for Helicobacter eradication. Patient is being discharged home on lansoprazoleamoxicillinclarithromycin for the eradication of Helicobacter pylori.Patient to be discharged home on prednisone 100 mg p.o. daily, he will follow with oncology Dr. Chen for the taping regimen for the prednisone Physical Exam Vital Signs: Temp Pulse Resp BP Pulse Ox 97.3 F 107 H 16 145/80 H 97 04/25/18 19:20 04/25/18 20:02 04/25/18 20:02 04/25/18 19:20 04/25/18 20:02 Intake & Output 04/24/18 04/25/18 04/26/18 06:59 06:59 06:59 Intake Total 1803 1386 1386 Output Total 925 1675 100 Balance 878 -289 1286 Weight 107.4 kg 109.1 kg General appearance: PRESENT: no acute distress, well-developed, well-nourished Head exam: PRESENT: atraumatic, normocephalic Eye exam: PRESENT: conjunctiva pink, EOMI, PERRLA Ear exam: PRESENT: normal external ear exam Mouth exam: PRESENT: moist, tongue midline Neck exam: PRESENT: full ROM Respiratory exam: PRESENT: clear to auscultation jim Cardiovascular exam: PRESENT: RRR, +S1, +S2 Pulses: PRESENT: normal dorsalis pedis pul, +2 pedal pulses bilateral Vascular exam: PRESENT: normal capillary refill GI/Abdominal exam: PRESENT: normal bowel sounds, soft Rectal exam: PRESENT: deferred Neurological exam: PRESENT: alert, awake, oriented to person, oriented to place , oriented to time, oriented to situation, CN II-XII grossly intact Psychiatric exam: PRESENT: appropriate affect, normal mood Skin exam: PRESENT: dry, intact, warm Results Laboratory Results: 04/25/18 06:15 04/24/18 05:55 04/25/18 06:15 WBC 19.2 H RBC 3.07 L Hgb 8.6 L Hct 27.0 L MCV 88 MCH 28.0 MCHC 31.9 L RDW 18.2 H Plt Count 155 Seg Neutrophils % Not Reportable Lymphocytes % Not Reportable Monocytes % Not Reportable Eosinophils % Not Reportable Basophils % Not Reportable Absolute Neutrophils Not Reportable Absolute Lymphocytes Not Reportable Absolute Monocytes Not Reportable Absolute Eosinophils Not Reportable Absolute Basophils Not Reportable 04/17/18 04/17/18 04/17/18 06:10 19:55 19:55 Creatine Kinase Cancelled 142 CK-MB (CK-2) Troponin I 0.089 04/17/18 04/18/18 04/18/18 19:55 02:10 02:10 Creatine Kinase 106 CK-MB (CK-2) 1.20 1.26 Troponin I 0.055 0.032 04/18/18 04/18/18 07:10 07:10 Creatine Kinase 91 CK-MB (CK-2) 1.49 Troponin I 0.017 Impressions: Abdomen Ultrasound 04/17/18 00:19 IMPRESSION: 1. Gallbladder sludge with stones. Nuclear medicine hepatobiliary scan may help better delineate. 2. Right-sided renal cyst 3. Otherwise unremarkable ultrasound of the abdomen for acute pathology. Abdomen/Pelvis CT 04/17/18 02:35 IMPRESSION: Partially imaged rounded consolidation involving the right lower lobe which is significantly increased in size compared to the prior. This may represent an enlarging pulmonary mass or pneumonia. Layering hyperdensity within the gallbladder, which may represent stones or sludge. TECHNICAL DOCUMENTATION: Quality ID # 436: Final reports with documentation of one or more dose reduction techniques (e.g., Automated exposure control, adjustment of the mA and/or kV according to patient size, use of iterative reconstruction technique) 2010 [employer]- All Rights Reserved Chest X-Ray 04/17/18 07:00 IMPRESSION: Interval line modification. Esophagus X-Ray 04/20/18 00:00 IMPRESSION: Small hiatal hernia, peptic stricture which impedes passage of 12 mm barium tablet Right lower lobe pneumonia Qualifiers - * PATIENT BEING DISCHARGED WITH ANY OF THE FOLLOWING DIAGNOSIS: No VTE patient discharged on overlapping Therapy?: Yes
[2018-04-25] MEDS: CEFEPIME 1 GM/D5W RTU 1 GM/50 ML RTUPB IV SCH (22:47)
[2018-04-26] MEDS: METHYLPREDNISOLONE INJ 125 MG/2 ML SDV IV SCH (05:51)
[2018-04-26] MEDS: HEPARIN SOD (PORCINE) 5,000 UNIT/ML 1 ML SYRINGE SUBCUT SCH (05:52)
[2018-04-26 06:45] LABS: HEMATOCRIT 26.3 % (37.9-51.0); HEMOGLOBIN 8.5 g/dL (13.5-17.0); MEAN CORPUSCULAR HEMOGLOBIN 28.7 pg (27.0-33.4); MEAN CORPUSCULAR HGB CONC 32.4 g/dL (32.0-36.0); MEAN CORPUSCULAR VOLUME 89 fl (80-97); PLATELET COUNT 149 10^3/uL (150-450); RED BLOOD COUNT 2.97 10^6/uL (4.35-5.55); WHITE BLOOD COUNT 19.3 10^3/uL (4.0-10.5)
[2018-04-26 07:22] LABS: ALANINE AMINOTRANSFERASE 83 U/L (21-72); ALBUMIN 2.3 g/dL (3.5-5.0); ALKALINE PHOSPHATASE 257 U/L (38-126); ANION GAP 8 (5-19); ASPARTATE AMINO TRANSFERASE 39 U/L (17-59); BILIRUBIN,DIRECT 0.8 mg/dL (0.0-0.4); BILIRUBIN,TOTAL 1.6 mg/dL (0.2-1.3); BLOOD UREA NITROGEN 37 mg/dL (7-20); CALCIUM 9.7 mg/dL (8.4-10.2); CARBON DIOXIDE 25 mmol/L (22-30); CHLORIDE 111 mmol/L (98-107); GLUCOSE 252 mg/dL (75-110); POTASSIUM 4.2 mmol/L (3.6-5.0); TOTAL PROTEIN 5.3 g/dL (6.3-8.2)
[2018-04-26 08:11] LABS: ABSOLUTE MONOCYTES # (MANUAL) 0.2 10^3/uL (0.1-1.4); ABSOLUTE NEUTROPHILS# (MANUAL) 19.1 10^3/uL (1.7-8.2); ANISOCYTOSIS 2+; BASOPHILS % (MANUAL) 0 % (0-2); EOSINOPHILS % (MANUAL) 0 % (0-6); HYPOCHROMASIA SLIGHT; LYMPHOCYTES % (MANUAL) 0 % (13-45); MONOCYTES % (MANUAL) 1 % (3-13); OVALOCYTES SLIGHT; PLATELET COMMENT ADEQUATE; POIKILOCYTOSIS SLIGHT; POLYCHROMASIA 1+; SEGMENTED NEUTROPHILS % (MAN) 99 % (42-78); TOTAL CELLS COUNTED 100; TOXIC GRANULATION 1+
[2018-04-26] MEDS: LEVALBUTEROL HCL NEB 1.25 MG/3 ML AMPUL NEB SCH (08:23)
--- NOTE | 2018-04-26 08:48 | PDOC PROGRESS REPORT ---
Subjective Progress Note for:: 04/26/18 Subjective:: Patient doing well this morning, no acute events overnight. Reviewed EGD report , he does indeed have confirmation of candidal esophagitis. Reason For Visit: POST-OBSTRUCTIVE PNEUMONIA, H/O RUL CANCER Physical Exam Vital Signs: Temp Pulse Resp BP Pulse Ox 97.6 F 82 18 141/75 H 99 04/26/18 07:18 04/26/18 07:18 04/26/18 07:18 04/26/18 07:18 04/26/18 07:18 Intake & Output 04/25/18 04/26/18 04/27/18 06:59 06:59 06:59 Intake Total 1436 1386 Output Total 1675 400 Balance -239 986 Weight 109.1 kg 110.7 kg General appearance: PRESENT: no acute distress, well-developed, well-nourished Head exam: PRESENT: atraumatic, normocephalic Eye exam: PRESENT: conjunctiva pink, EOMI, PERRLA. ABSENT: scleral icterus Ear exam: PRESENT: normal external ear exam Mouth exam: PRESENT: moist, tongue midline Neck exam: ABSENT: carotid bruit, JVD, lymphadenopathy, thyromegaly Respiratory exam: PRESENT: clear to auscultation jim. ABSENT: rales, rhonchi, wheezes Cardiovascular exam: PRESENT: RRR. ABSENT: diastolic murmur, rubs, systolic murmur Pulses: PRESENT: normal dorsalis pedis pul Vascular exam: PRESENT: normal capillary refill GI/Abdominal exam: PRESENT: normal bowel sounds, soft. ABSENT: distended, guarding, mass, organolmegaly, rebound, tenderness Rectal exam: PRESENT: deferred Extremities exam: PRESENT: full ROM. ABSENT: calf tenderness, clubbing, pedal edema Neurological exam: PRESENT: alert, awake, oriented to person, oriented to place , oriented to time, oriented to situation, CN II-XII grossly intact. ABSENT: motor sensory deficit Psychiatric exam: PRESENT: appropriate affect, normal mood. ABSENT: homicidal ideation, suicidal ideation Skin exam: PRESENT: dry, intact, warm. ABSENT: cyanosis, rash Results Laboratory Results: 04/26/18 05:50 04/26/18 05:50 04/26/18 04/26/18 05:50 05:50 WBC 19.3 H RBC 2.97 L Hgb 8.5 L Hct 26.3 L MCV 89 MCH 28.7 MCHC 32.4 RDW 18.0 H Plt Count 149 L Seg Neutrophils % Not Reportable Lymphocytes % Not Reportable Monocytes % Not Reportable Eosinophils % Not Reportable Basophils % Not Reportable Absolute Neutrophils Not Reportable Absolute Lymphocytes Not Reportable Absolute Monocytes Not Reportable Absolute Eosinophils Not Reportable Absolute Basophils Not Reportable Sodium 144.0 Potassium 4.2 Chloride 111 H Carbon Dioxide 25 Anion Gap 8 BUN 37 H Creatinine 1.29 H Est GFR ( Amer) > 60 Est GFR (Non-Af Amer) 55 L Glucose 252 H Calcium 9.7 Total Bilirubin 1.6 H AST 39 ALT 83 H Alkaline Phosphatase 257 H Total Protein 5.3 L Albumin 2.3 L 04/17/18 04/17/18 04/17/18 06:10 19:55 19:55 Creatine Kinase Cancelled 142 CK-MB (CK-2) Troponin I 0.089 04/17/18 04/18/18 04/18/18 19:55 02:10 02:10 Creatine Kinase 106 CK-MB (CK-2) 1.20 1.26 Troponin I 0.055 0.032 04/18/18 04/18/18 07:10 07:10 Creatine Kinase 91 CK-MB (CK-2) 1.49 Troponin I 0.017 Impressions: Abdomen Ultrasound 04/17/18 00:19 IMPRESSION: 1. Gallbladder sludge with stones. Nuclear medicine hepatobiliary scan may help better delineate. 2. Right-sided renal cyst 3. Otherwise unremarkable ultrasound of the abdomen for acute pathology. Abdomen/Pelvis CT 04/17/18 02:35 IMPRESSION: Partially imaged rounded consolidation involving the right lower lobe which is significantly increased in size compared to the prior. This may represent an enlarging pulmonary mass or pneumonia. Layering hyperdensity within the gallbladder, which may represent stones or sludge. TECHNICAL DOCUMENTATION: Quality ID # 436: Final reports with documentation of one or more dose reduction techniques (e.g., Automated exposure control, adjustment of the mA and/or kV according to patient size, use of iterative reconstruction technique) 2010 [employer]- All Rights Reserved Chest X-Ray 04/17/18 07:00 IMPRESSION: Interval line modification. Esophagus X-Ray 04/20/18 00:00 IMPRESSION: Small hiatal hernia, peptic stricture which impedes passage of 12 mm barium tablet Right lower lobe pneumonia Assessment & Plan - Diagnosis (1) Pneumonia Qualifiers: Pneumonia type: due to unspecified organism Laterality: right Lung location: middle lobe of lung Qualified Code(s): J18.1 - Lobar pneumonia, unspecified organism Is this a current diagnosis for this admission?: Yes Plan: Completed course of antibiotics, do not believe he will need any as an outpatient by Dr. Hurtado make that decision. (2) Malignant neoplasm of lung Qualifiers: Laterality: right Lung location: middle lobe of lung Qualified Code(s): C34.2 - Malignant neoplasm of middle lobe, bronchus or lung Is this a current diagnosis for this admission?: Yes Plan: In for follow-up in office later this week and next week. CT imaging next week. (3) Acute kidney injury Is this a current diagnosis for this admission?: Yes Plan: Improved (4) Elevated bilirubin Is this a current diagnosis for this admission?: Yes Plan: Almost resolved (5) Esophageal stricture Is this a current diagnosis for this admission?: Yes Plan: Secondary to candidal esophagitis will need 10 day course of Diflucan
[2018-04-26 09:18] VITALS: BP 139/79
[2018-04-26] MEDS ORDERED: FLUCONAZOLE 100 MG TABLET PO SCH (10:00)
== END 2018-04-26 09:48 | disposition home or self-care (01) | DRG 871 ==
LOC: ER 20:58 → EH 04-17 05:08 → ICU 04-17 08:20 → 3S 04-20 18:51
PROVIDERS: ADMIT Internal Medicine; ATTEND Internal Medicine
PROC: 05HM33Z Insertion of Infusion Device into Right Internal Jugular Vein, Percutaneous Approach (ICD-10-PCS; 2018-04-17)
PROC: 30233N1 Transfusion of Nonautologous Red Blood Cells into Peripheral Vein, Percutaneous Approach (ICD-10-PCS; 2018-04-17)
PROC: 0DB78ZX Excision of Stomach, Pylorus, Via Natural or Artificial Opening Endoscopic, Diagnostic (ICD-10-PCS; 2018-04-23)
PROC: 0DB68ZX Excision of Stomach, Via Natural or Artificial Opening Endoscopic, Diagnostic (ICD-10-PCS; principal; 2018-04-23 14:30)
DX: A41.9 Sepsis, unspecified organism (principal); R65.21 Severe sepsis with septic shock; J18.1 Lobar pneumonia, unspecified organism; J96.01 Acute respiratory failure with hypoxia; N17.9 Acute kidney failure, unspecified; C34.2 Malignant neoplasm of middle lobe, bronchus or lung; E87.2 Acidosis; Q61.3 Polycystic kidney, unspecified; I48.4 Atypical atrial flutter; B37.81 Candidal esophagitis; R80.9 Proteinuria, unspecified; K29.60 Other gastritis without bleeding; R13.10 Dysphagia, unspecified; K44.9 Diaphragmatic hernia without obstruction or gangrene; B96.81 Helicobacter pylori [H. pylori] as the cause of diseases classified elsewhere; K21.9 Gastro-esophageal reflux disease without esophagitis; N18.3 Chronic kidney disease, stage 3 (moderate); R74.0 Nonspecific elevation of levels of transaminase and lactic acid dehydrogenase [LDH]; J44.9 Chronic obstructive pulmonary disease, unspecified; E80.7 Disorder of bilirubin metabolism, unspecified; I10 Essential (primary) hypertension; K22.2 Esophageal obstruction; I45.10 Unspecified right bundle-branch block; E87.5 Hyperkalemia; D64.9 Anemia, unspecified; D69.59 Other secondary thrombocytopenia; Z90.2 Acquired absence of lung [part of]; Z87.891 Personal history of nicotine dependence; Z79.899 Other long term (current) drug therapy
CPT/HCPCS: 36415; 36430; 43239; 71045; 74176; 74220; 76705; 80053; 81001; 82272; 82550; 82553; 82803; 82962; 83036; 83605; 83690; 83735; 84484; 85025; 85027; 85610; 85730; 86850; 86900; 86901; 86920; 87040; 87070; 87086; 87205; 88305; 88342; 93005; 93010; 93306; 94640; 94660; 96365; 96367; 96375; 99291; C1751; G8978-GP; G8979-GP; J0153; J0171; J0282; J0692; J1160; J1200; J1450; J1610; J1642; J1644; J1956; J2250; J2310; J2405; J2930; J3010; J3370; J3490; J7030; J7050; J7060; J7620; P9016

== ENCOUNTER → 2018-05-02 | Outpatient (CLI) | payer MEDICARE, BC ==
--- NOTE | 2018-05-02 14:35 | RADIOLOGY REPORT (SQ) ---
EXAM DESCRIPTION: CT ABD/PELVIS WITH IV ONLY; CT CHEST WITH COMPLETED DATE/TIME: 05/02/2018 1:41 pm REASON FOR STUDY: LUNG CA (C34.11) C34.11 MALIGNANT NEOPLASM OF UPPER LOBE, RIGHT BRONCHUS OR L COMPARISON: PET-CT 11/23/2017 CT abdomen pelvis 04/17/2018 CT chest abdomen pelvis 02/16/2018 CT chest 03/30/2017 CONTRAST TYPE AND DOSE: contrast/concentration: Isovue 300.00 mg/ml; Total Contrast Delivered: 75.0 ml; Total Saline Delivered: 72.0 ml RENAL FUNCTION: Creatinine 1.6 TECHNIQUE: CT scan of the chest performed using helical scanning technique with dynamic intravenous contrast injection. Images reviewed with lung, soft tissue and bone windows. Reconstructed coronal a nd sagittal MPR images reviewed. All images stored on PACS. CT scan of the abdomen and pelvis performed with intravenous and without oral contrastusing helical s delta technique with dynamic intravenous contrast injection. Images reviewed with lung, soft tissu e and bone windows. Reconstructed coronal and sagittal MPR images reviewed. Delayed images for eval uation of the urinary system also acquired and evaluated. All images stored on PACS. All CT scanners at this facility use dose modulation, iterative reconstruction, and/or weight based d osing when appropriate to reduce radiation dose to as low as reasonably achievable (ALARA). [facility]: Dose Right [facility]: CareDose [facility]: Dose Right [facility]: Teradose 4D [facility]: [employer] RADIATION DOSE: CT Rad equipment meets quality standard of care and radiation dose reduction techniq ues were employed. CTDIvol: 10.4 - 13.9 mGy. DLP: 1910 mGy-cm. . LIMITATIONS: None. FINDINGS: CHEST: LUNGS AND PLEURA: In the right lower lobe, a thick walled cavitary lesion is now present with debris layering dependently. This cavitary lesion measures about 6 cm AP x 4.7 cm transverse x 4 cm cranioc audad. This is in the same area as the right basilar lung mass described 04/17/2018. This could eithe r represent cavitary neoplasm or cavitary infiltrate. Lateral basilar segmental bronchus appears to communicate with the cavity. Elsewhere in the right hemithorax, there is nodular thickening of the major and minor fissures, stabl e. There is a row of surgical jimbo along the medial aspect right upper lobe with bandlike soft ti ssue paralleling the jimbo, 8 x 2 cm in thickness (was about 5 x 2 cm in size on 02/16/2018). There is post radiation change with narrowing of the right upper lobe segmental bronchi. Left lung and pleural space grossly unremarkable. HILAR AND MEDIASTINAL STRUCTURES: No identified masses or abnormal nodes. HEART AND VASCULAR STRUCTURES: No aneurysm or dissection. No central pulmonary emboli. No pericardi al effusion. HARDWARE: None. THYROID AND OTHER SOFT TISSUES: No masses. No adenopathy. BONES: There are sclerotic bony metastatic lesions in the ribs, upper and midthoracic spine, new comp ared to CT exam 02/16/2018 OTHER: No other significant finding. ABDOMEN AND PELVIS: LIVER: Normal size. No masses. No dilated ducts. SPLEEN: Normal size. No focal lesions. PANCREAS: No masses. No significant calcifications. No adjacent inflammation or peripancreatic fluid collections. Pancreatic duct not dilated. GALLBLADDER: Gallstones. No inflammatory changes to suggest cholecystitis. ADRENAL GLANDS: No significant masses or asymmetry. RIGHT KIDNEY AND URETER: No solid masses. Multiple cysts, the largest is 9 cm in the right upper lucinda e kidney. No significant calcification. No hydronephrosis or hydroureter. LEFT KIDNEY AND URETER: No solid masses. Multiple left renal cortical cysts, the largest is 5 cm in the left lower pole kidney. No significant calcification. No hydronephrosis or hydroureter. AORTA AND VESSELS: No aneurysm. No dissection. Renal arteries, SMA, celiac without stenosis. RETROPERITONEUM: No retroperitoneal adenopathy, hemorrhage or masses. BOWEL AND PERITONEAL CAVITY: No masses or inflammatory changes. No free fluid or peritoneal masses. APPENDIX: Normal. ABDOMINAL WALL: No masses. No hernias. PELVIS: No mass or free fluid. Normal bladder. Penile prosthesis. BONES: Small sclerotic bony lesions are seen in the right innominate bone L1 upper vertebral body lef t innominate bone worrisome for metastatic lesions. OTHER: No other significant finding. IMPRESSION: New cavitary mass in the right lower lobe, tumor versus post infectious cavitary lesion. Stable post therapeutic changes medial aspect right upper hemithorax New sclerotic lesions in the midthoracic spine and upper thoracic spine worrisome for new metastatic lesions. Stable sclerotic lesions in the lumbar spine and pelvis NORMAL CT OF THE ABDOMEN AND PELVIS WITH ORAL AND INTRAVENOUS CONTRAST. TECHNICAL DOCUMENTATION: JOB ID: [id number] Quality ID # 436: Final reports with documentation of one or more dose reduction techniques (e.g., Au tomated exposure control, adjustment of the mA and/or kV according to patient size, use of iterative reconstruction technique) 2010 [employer]- All Rights Reserved Reading location - IP/workstation name: [facility]
== END ==
LOC: RAD 12:46
PROVIDERS: ATTEND Internal Medicine
DX: C34.11 Malignant neoplasm of upper lobe, right bronchus or lung (principal)
CPT/HCPCS: 71260; 74177; 82565

== ENCOUNTER → 2018-05-05 | Outpatient (CLI) | payer MEDICARE, BC | LOC: OD 14:39 | PROVIDERS: ATTEND Internal Medicine | DX: R06.02 Shortness of breath (principal); C34.11 Malignant neoplasm of upper lobe, right bronchus or lung | CPT/HCPCS: 93005; 93010 ==

== ENCOUNTER 2018-05-31 20:37 | Emergency (ER) | payer MEDICARE, BC ==
--- NOTE | 2018-05-31 20:48 | ER Document Report ---
ED Medical Screen (RME) - General Stated Complaint: FORIEGN BODY STUCK IN THROAT Time Seen by Provider: 05/31/18 20:46 Mode of Arrival: Ambulatory Information source: Patient Notes: PT WAS EATING RIBS AND NOW HAS MEAT STUCK. REPORTS HE CANNOT HOLD WATER, VOMITS AFTER ATTEMPTING TO DRINK TRAVEL OUTSIDE OF THE [place] IN LAST 30 DAYS: No - Related Data Allergies/Adverse Reactions: No Known Allergies Allergy (Verified 04/27/14 21:43) Past Medical History - Past Medical History Cardiac Medical History: Reports: Hx Hypertension Denies: Hx Coronary Artery Disease, Hx Heart Attack Pulmonary Medical History: Reports: Hx COPD Denies: Hx Asthma, Hx Bronchitis, Hx Pneumonia Neurological Medical History: Denies: Hx Cerebrovascular Accident, Hx Seizures Renal/ Medical History: Denies: Hx Peritoneal Dialysis Malignancy Medical History: Reports Hx Lung Cancer Musculoskeltal Medical History: Denies Hx Arthritis Psychiatric Medical History: Denies: Hx Depression - Immunizations Hx Diphtheria, Pertussis, Tetanus Vaccination: Yes History of Influenza Vaccine for 06/2017 - 11/2017 Season: Unknown Doctor's Discharge - Discharge Referrals: JOSE MURPHY MD [Primary Care Provider] - Follow up as needed
--- NOTE | 2018-05-31 23:15 | RADIOLOGY REPORT (SQ) ---
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 FINDINGS: No foreign object is noted. Epiglottis is within normal limits. No narrowing of the airway is noted. IMPRESSION: No acute abnormality is identified.
--- NOTE | 2018-06-01 00:16 | RADIOLOGY REPORT (SQ) ---
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 CT 05/02/2018 FINDINGS: The cardiac size appears stable. There is widened mediastinum with abnormal soft tissue in the right hilum and the right lung base. Cavitary focus is again noted in the right lower lobe. This appears patchy areas of infiltrate are present in the right mid and lower lung field which appear improved over the previous chest x-ray. IMPRESSION: Cavitary lesion in the right lung base seen on previous examinations. Again findings may reflect resolving infection versus neoplasm Abnormal soft tissue in the right superior mediastinum and hilum similar to the previous exam which may be related to postsurgical change versus residual or recurrent mass Infiltrate in the right lung base and mid lung field appears improved over the previous CT. Scattered sclerotic foci are again noted in the osseous structures. Consider further evaluation with CT of the chest
[2018-06-01] MEDS ORDERED: LIDOCAINE 2% VISCOUS SOLN 20 ML UDCUP PO ONE (01:15)
--- NOTE | 2018-06-01 01:18 | ER Document Report ---
ED GI/ - General Chief Complaint: Swallowed Foreign Body Stated Complaint: FORIEGN BODY STUCK IN THROAT Time Seen by Provider: 05/31/18 20:46 Mode of Arrival: Ambulatory Notes: Patient is a 73-year-old male that comes to the emergency department for chief complaint of possible stuck foreign body. He states that he was eating ribs when he suddenly felt like he became obstructed, he states shortly after this he vomited, he did vomit pieces of rib meat out, he states he did drink fluid and kept it down without difficulty since but he still has a sensation in his chest like he still has something stuck. He states he has had an attempted esophageal dilation endoscopy by Dr. Espinosa in the past but he states that she did not work. He states he normally does not have any trouble eating/drinking. Patient denies any other complaints. TRAVEL OUTSIDE OF THE [place] IN LAST 30 DAYS: No - Related Data Allergies/Adverse Reactions: No Known Allergies Allergy (Verified 04/27/14 21:43) Past Medical History - General Information source: Patient - Social History Smoking Status: Never Smoker Frequency of alcohol use: None Drug Abuse: None Lives with: Family Family History: Reviewed & Not Pertinent Patient has suicidal ideation: No Patient has homicidal ideation: No - Past Medical History Cardiac Medical History: Reports: Hx Hypertension Denies: Hx Coronary Artery Disease, Hx Heart Attack Pulmonary Medical History: Reports: Hx COPD Denies: Hx Asthma, Hx Bronchitis, Hx Pneumonia Neurological Medical History: Denies: Hx Cerebrovascular Accident, Hx Seizures Renal/ Medical History: Denies: Hx Peritoneal Dialysis Malignancy Medical History: Reports Hx Lung Cancer Musculoskeletal Medical History: Denies Hx Arthritis Psychiatric Medical History: Denies: Hx Depression - Immunizations Hx Diphtheria, Pertussis, Tetanus Vaccination: Yes Hx Pneumococcal Vaccination: 06/13/14 Review of Systems - Review of Systems Constitutional: No symptoms reported EENT: No symptoms reported Cardiovascular: No symptoms reported Respiratory: No symptoms reported Gastrointestinal: See HPI Genitourinary: No symptoms reported Male Genitourinary: No symptoms reported Musculoskeletal: No symptoms reported Skin: No symptoms reported Hematologic/Lymphatic: No symptoms reported Neurological/Psychological: No symptoms reported Physical Exam - Vital signs Vitals: Temp Pulse Resp BP Pulse Ox 97.5 F 96 20 110/68 92 05/31/18 20:51 05/31/18 20:51 05/31/18 20:51 05/31/18 20:51 05/31/18 20:51 - Notes Notes: GENERAL: Alert, interacts well. No acute distress. HEAD: Normocephalic, atraumatic. EYES: Pupils equal, round, and reactive to light. Extraocular movements intact. ENT: Oral mucosa moist, tongue midline. NECK: Full range of motion. Supple. Trachea midline. LUNGS: Clear to auscultation bilaterally, no wheezes, rales, or rhonchi. No respiratory distress. HEART: Regular rate and rhythm. No murmur ABDOMEN: Soft, non-tender. Non-distended. Bowel sounds present in all 4 quadrants. EXTREMITIES: Moves all 4 extremities spontaneously. No edema, normal radial and dorsalis pedis pulses bilaterally. No cyanosis. BACK: no cervical, thoracic, lumbar midline tenderness. No saddle anesthesia, normal distal neurovascular exam. NEUROLOGICAL: Alert and oriented x3. Normal speech. [cranial nerves II through XII grossly intact]. PSYCH: Normal affect, normal mood. SKIN: Warm, dry, normal turgor. No rashes or lesions noted. Course - Re-evaluation Re-evalutation: Discussed abnormal findings on x-ray, patient states he is already aware of this possible neoplasm, he states this is already being monitored and he has a follow-up CAT scan for this already. X-rays ordered in triage, no acute findings. Patient calm, well-appearing, given lidocaine, symptoms resolved. He reports that he already vomited out food products and that he has been able to drink since that time. Patient was given water, first aseptic, then he chugged it, he had no difficulty keeping water down. He remained asymptomatic. Low suspicion of obstruction. I did discuss possible waiting and having barium swallow, patient declined. Patient states he feels great and he is ready to leave. Discussed follow-up with gastroenterology who he has already been seeing , discussed return precautions. Patient states satisfaction and agreement. - Vital Signs Vital signs: Temp Pulse Resp BP Pulse Ox 97.5 F 78 14 156/82 H 98 05/31/18 20:51 06/01/18 02:38 06/01/18 02:38 06/01/18 02:38 06/01/18 02:38 Discharge - Discharge Clinical Impression: Foreign body in esophagus Qualifiers: Encounter type: initial encounter Qualified Code(s): T18.108A - Unspecified foreign body in esophagus causing other injury, initial encounter Condition: Stable Disposition: HOME, SELF-CARE Additional Instructions: You appear to have expelled or passed the food bolus that was stuck in your esophagus. Follow-up with Dr. Espinosa for additional evaluation and management. Return for any concerning symptoms including vomiting, inability to swallow, chest pain, or any other concerning symptoms. Referrals: JOSE MURPHY MD [Primary Care Provider] - Follow up as needed
[2018-06-01 02:39] VITALS: BP 156/82
== END 2018-06-01 02:37 | disposition home or self-care (01) ==
LOC: ER 20:37
DX: T18.128A Food in esophagus causing other injury, initial encounter (principal); X58.XXXA Exposure to other specified factors, initial encounter; Y93.89 Activity, other specified; R91.8 Other nonspecific abnormal finding of lung field; I10 Essential (primary) hypertension; J44.9 Chronic obstructive pulmonary disease, unspecified; Z85.118 Personal history of other malignant neoplasm of bronchus and lung
CPT/HCPCS: 99283; 71046; 70360; J3490

== ENCOUNTER 2018-06-06 19:19 | Inpatient (IN) | payer MEDICARE, BC ==
--- NOTE | 2018-06-06 19:54 | ER Document Report ---
ED General - General Chief Complaint: Respiratory Distress Stated Complaint: CHEST PAIN Time Seen by Provider: 06/06/18 19:51 Notes: Patient is a 73-year-old male with active lung cancer that presents to the emergency department for chief complaint of chest pain and shortness of breath. Patient states that this started earlier today and seemed to have gotten worse over the course of the day. He states he does have lung disease including COPD which he uses inhalers, which she has been using. Denied noting any wheezing, but stated that the shortness of breath have become worse over the course the day particularly with any exertion. Denies noting any new leg swelling, fevers, chills, cough. Denies history of DVT or PE. He has had right -sided lung lobectomy, does not recall when the surgery was, he states his last chemotherapy treatment was on of last week. Past Medical History: COPD, lung carcinoma Past Surgical History: Right lung surgery Social History: Denies tobacco, alcohol or drug use Family History: Reviewed and noncontributory for presenting illness Allergies: Reviewed, see documented allergy list. REVIEW OF SYSTEMS: Unless otherwise stated in this report the patient's positive and negative responses for review of systems for constitutional, eyes, ENT, cardiovascular, respiratory, gastrointestinal, neurological, genitourinary, musculoskeletal, and integumentary systems and related systems to the presenting problem are either as stated in the HPI or were not pertinent or were negative for the symptoms and/or complaints related to the presenting medical problem. PHYSICAL EXAMINATION: Vital signs reviewed, nursing noted reviewed. GENERAL: Well-appearing, well-nourished and in no acute distress. HEAD: Atraumatic, normocephalic. EYES: Eyes appear normal, extraocular movements intact, sclera anicteric, conjunctiva are normal. ENT: nares patent, oropharynx clear without exudates. Moist mucous membranes. NECK: Normal range of motion, supple without lymphadenopathy LUNGS: Breath sounds clear to auscultation bilaterally and equal. No wheezes rales or rhonchi. HEART: Regular rate and rhythm without murmurs ABDOMEN: Soft, nontender, normoactive bowel sounds. No rebound, guarding, or rigidity. No masses appreciated. EXTREMITIES: Nontender, good range of motion, 1+ bilateral pedal edema, equal NEUROLOGICAL: No focal neurological deficits. Moves all extremities spontaneously Motor and sensory grossly intact on exam. PSYCH: Normal mood, normal affect. SKIN: Warm, Dry, normal turgor, no rashes or lesions noted on exposed skin TRAVEL OUTSIDE OF THE [place] IN LAST 30 DAYS: No - Related Data Allergies/Adverse Reactions: No Known Allergies Allergy (Verified 04/27/14 21:43) Past Medical History - Social History Smoking Status: Former Smoker Family History: Reviewed & Not Pertinent - Past Medical History Cardiac Medical History: Reports: Hx Hypertension Denies: Hx Coronary Artery Disease, Hx Heart Attack Pulmonary Medical History: Reports: Hx COPD Denies: Hx Asthma, Hx Bronchitis, Hx Pneumonia Neurological Medical History: Denies: Hx Cerebrovascular Accident, Hx Seizures Renal/ Medical History: Denies: Hx Peritoneal Dialysis Malignancy Medical History: Reports Hx Lung Cancer Musculoskeletal Medical History: Denies Hx Arthritis Psychiatric Medical History: Denies: Hx Depression - Immunizations Hx Diphtheria, Pertussis, Tetanus Vaccination: Yes Hx Pneumococcal Vaccination: 06/13/14 Physical Exam - Vital signs Vitals: Temp Pulse Resp BP Pulse Ox 98.7 F 88 22 H 95/58 L 95 06/06/18 19:41 06/06/18 19:41 06/06/18 19:41 06/06/18 19:41 06/06/18 19:41 Course - Re-evaluation Re-evalutation: Patient seen and examined vital signs reviewed. Laboratory data and imaging were ordered as appropriate for the patient's presenting symptoms and complaint, with consideration of any critical or life threatening conditions that may be associated with their obtained history and exam as noted above. Patient was treated with aspirin, morphine, Zofran, and IV fluids. Results were reviewed when available and demonstrated acute PE noted on CT imaging, the distal right pulmonary artery, extending to the segmental branches , patient did have a bump in his troponin, at 0.13, as well as a BNP of 1400, possibly indicative of right heart strain, patient noted to have couplets on his EKG, his blood pressure initially was in the 90s systolic, without acute intervention, the patient's blood pressure came up to 114/60, and then back to 93/52, at this point patient was given IV fluid bolus. And started on subcutaneous Lovenox 1 mg/kg. The patient was re-evaluated and was stable, on room air oxygen, no acute distress Evaluation was most consistent with acute pulmonary embolism in a patient with active lung cancer, and evidence of possible right heart strain. Results were discussed with the patient at this point after careful consideration I feel that that patient should be admitted to the hospital. This was discussed with the patient that it is in the best interest for their care to be admitted for further evaluation and management. Patient agreed with this plan of care. A call was placed to the admitted physician, Dr. Hurtado who graciously accepted the patient onto their service. *Note is created using voice recognition software and may contain spelling, syntax or grammatical errors. Laboratory 06/06/18 06/06/18 06/06/18 20:29 20:29 20:29 WBC 7.9 RBC 3.25 L Hgb 10.0 L Hct 29.1 L MCV 90 MCH 30.9 MCHC 34.5 RDW 17.7 H Plt Count 87 L Seg Neutrophils % 75.0 Lymphocytes % 20.2 Monocytes % 1.7 L Eosinophils % 2.3 Basophils % 0.8 Absolute Neutrophils 5.9 Absolute Lymphocytes 1.6 Absolute Monocytes 0.1 Absolute Eosinophils 0.2 Absolute Basophils 0.1 Sodium 135.3 L Potassium 4.6 Chloride 102 Carbon Dioxide 27 Anion Gap 6 BUN 34 H Creatinine 1.57 H Est GFR ( Amer) 53 L Est GFR (Non-Af Amer) 44 L Glucose 111 H Calcium 9.9 Total Bilirubin 1.1 Direct Bilirubin 0.6 H Neonat Total Bilirubin Not Reportable Neonat Direct Bilirubin Not Reportable Neonat Indirect Bili Not Reportable AST 38 ALT 27 Alkaline Phosphatase 203 H Troponin I 0.137 NT-Pro-B Natriuret Pep 1490 H Total Protein 6.4 Albumin 3.3 L Chest X-Ray 06/06/18 19:51 IMPRESSION: Chronic lung changes. Chest/Abdomen CTA 06/06/18 19:58 IMPRESSION: Positive for acute PE. The above critical findings were discussed with and acknowledged by Dr. Croft at 11:20 PM on 06/06/2018. Findings of metastatic disease with increased interstitial thickening along the lingula and left lower lobe, which may represent disease progression or a superimposed pneumonia. TECHNICAL DOCUMENTATION: Quality ID # 436: Final reports with documentation of one or more dose reduction techniques (e.g., Automated exposure control, adjustment of the mA and/or kV according to patient size, use of iterative reconstruction technique) 2010 [email or web address]- All Rights Reserved - Vital Signs Vital signs: Temp Pulse Resp BP Pulse Ox 98.7 F 88 18 105/46 L 94 06/06/18 19:41 06/06/18 19:41 06/07/18 00:00 06/06/18 21:01 06/07/18 00:00 - Laboratory Result Diagrams: 06/06/18 20:29 06/06/18 20:29 Laboratory results interpreted by me: 06/06/18 06/06/18 06/06/18 20:29 20:29 20:29 RBC 3.25 L Hgb 10.0 L Hct 29.1 L RDW 17.7 H Plt Count 87 L Monocytes % 1.7 L Sodium 135.3 L BUN 34 H Creatinine 1.57 H Est GFR ( Amer) 53 L Est GFR (Non-Af Amer) 44 L Glucose 111 H Direct Bilirubin 0.6 H Alkaline Phosphatase 203 H NT-Pro-B Natriuret Pep 1490 H Albumin 3.3 L - EKG Interpretation by Me Additional EKG results interpreted by me: EKG demonstrates sinus rhythm with a right bundle branch block, and evidence of left anterior fascicular block, with a ventricular rate of 84 bpm, left axis deviation, QTC 469 ms, there are ST depressions noted in V2 and V3, and nonspecific T-wave inversion noted in lead III, this compared with prior EKG from 04/18/2018, without significant change, the patient did have a right bundle branch block at that time as well. Critical Care Note - Critical Care Note Total time excluding time spent on procedures (mins): 45 Comments: Critical care time 45 minutes exclusive from separate billable procedures for a patient requiring complex medical decision making, and high potential for clinical deterioration. In a patient with acute pulmonary embolism, with high potential for deterioration, requiring Lovenox, and constant monitoring, and frequent reassessments. Time spent obtaining history from patient or surrogate , discussions with consultants, development of treatment plan with patient or surrogate, evaluation of patient's response to treatment, examination of patient , ordering and performing treatments and interventions, ordering and review of laboratory studies, re-evaluation of patient's condition, ordering and review of radiographic studies and review of old charts Discharge - Discharge Clinical Impression: NSTEMI (non-ST elevated myocardial infarction) Acute pulmonary embolism Qualifiers: Pulmonary embolism type: other Acute cor pulmonale presence: without acute cor pulmonale Qualified Code(s): I26.99 - Other pulmonary embolism without acute cor pulmonale Anemia Qualifiers: Anemia type: unspecified type Qualified Code(s): D64.9 - Anemia, unspecified Condition: Stable Disposition: ADMITTED INPATIENT Admitting Provider: [facility] Admitted: [facility]
--- NOTE | 2018-06-06 20:21 | RADIOLOGY REPORT (SQ) ---
EXAM DESCRIPTION: CHEST SINGLE VIEW COMPLETED DATE/TIME: 06/06/2018 8:04 pm REASON FOR STUDY: chest pain COMPARISON: 05/31/2018 EXAM PARAMETERS: NUMBER OF VIEWS: One view. TECHNIQUE: Single frontal radiographic view of the chest acquired. RADIATION DOSE: NA LIMITATIONS: None. FINDINGS: LUNGS AND PLEURA: Chronic interstitial changes are present in the right lung. There is re duced volume on the right. There is no acute infiltrate or effusion. What is pain seen on previous studies as a cavitary lesion has an appearance more suggestive of a pneumatocoele on this study. The re is no air-fluid level. MEDIASTINUM AND HILAR STRUCTURES: No masses. Contour normal. HEART AND VASCULAR STRUCTURES: Heart normal in size. Normal vasculature. BONES: No acute findings. HARDWARE: None in the chest. OTHER: No other significant finding. IMPRESSION: Chronic lung changes. TECHNICAL DOCUMENTATION: JOB ID: [id number] [employer]- All Rights Reserved Reading location - IP/workstation name: [email or web address]
[2018-06-06 20:45] LABS: ABSOLUTE BASOPHILS # (AUTO) 0.1 10^3/uL (0.0-0.2); ABSOLUTE EOSINOPHILS # (AUTO) 0.2 10^3/uL (0.0-0.6); ABSOLUTE LYMPHOCYTES (AUTO) 1.6 10^3/uL (0.5-4.7); ABSOLUTE MONOCYTES (AUTO) 0.1 10^3/uL (0.1-1.4); ABSOLUTE NEUT (AUTO) 5.9 10^3/uL (1.7-8.2); BASOPHILS % (AUTO) 0.8 % (0-2); EOSINOPHILS % (AUTO) 2.3 % (0-6); HEMATOCRIT 29.1 % (37.9-51.0); LYMPHOCYTES % (AUTO) 20.2 % (13-45); MEAN CORPUSCULAR HEMOGLOBIN 30.9 pg (27.0-33.4); MEAN CORPUSCULAR HGB CONC 34.5 g/dL (32.0-36.0); MEAN CORPUSCULAR VOLUME 90 fl (80-97); MONOCYTES % (AUTO) 1.7 % (3-13); RED BLOOD COUNT 3.25 10^6/uL (4.35-5.55); RED CELL DISTRIBUTION WIDTH 17.7 % (11.5-14.0); TOTAL CELLS COUNTED % (AUTO) 100 %; WHITE BLOOD COUNT 7.9 10^3/uL (4.0-10.5)
[2018-06-06] MEDS ORDERED: MORPHINE SULFATE 10 MG/ML INJ IV ONE (20:46)
[2018-06-06] MEDS ORDERED: ONDANSETRON HCL INJ/PF 4 MG/2 ML SDV IV ONE (20:47)
[2018-06-06 20:58] LABS: ALANINE AMINOTRANSFERASE 27 U/L (21-72); ALBUMIN 3.3 g/dL (3.5-5.0); ALKALINE PHOSPHATASE 203 U/L (38-126); ANION GAP 6 (5-19); ASPARTATE AMINO TRANSFERASE 38 U/L (17-59); BILIRUBIN,DIRECT 0.6 mg/dL (0.0-0.4); BILIRUBIN,TOTAL 1.1 mg/dL (0.2-1.3); BLOOD UREA NITROGEN 34 mg/dL (7-20); CALCIUM 9.9 mg/dL (8.4-10.2); CARBON DIOXIDE 27 mmol/L (22-30); CHLORIDE 102 mmol/L (98-107); GLUCOSE 111 mg/dL (75-110); POTASSIUM 4.6 mmol/L (3.6-5.0); SODIUM 135.3 mmol/L (137-145); TOTAL PROTEIN 6.4 g/dL (6.3-8.2)
[2018-06-06 21:01] LABS: PLATELET COUNT 87 10^3/uL (150-450)
[2018-06-06 21:14] LABS: TROPONIN I 0.137 ng/mL
[2018-06-06] MEDS ORDERED: ASPIRIN 81 MG TABLET, CHEWABLE PO ONE (21:23)
--- NOTE | 2018-06-06 21:51 | EKG REPORT ---
SEVERITY:- ABNORMAL ECG - SINUS RHYTHM RBBB AND LAFB : Confirmed by: Shandra Salgado MD 06-Jun-2018 21:50:26
--- NOTE | 2018-06-07 00:28 | RADIOLOGY REPORT (SQ) ---
EXAM DESCRIPTION: CT CHEST ANGIOGRAPHY WITHOUT THEN WITH IV CONTRAST COMPLETED DATE/TME: 06/06/2018 19:58 CLINICAL HISTORY: 73 years, Male, chest pain, sob, active lung ca COMPARISON: 05/02/2018 TECHNIQUE: Contiguous axial CT images of the chest. Intravenous contrast: Present. Protocol: Pulmonary embolus (PE) protocol angiogram. Reformats: MIPs and MPRs created and utilized. DLP 646 mGy-cm. This exam was performed according to our departmental dose-optimization program, which includes automated exposure control, adjustment of the mA and/or kV according to patient size and/or use of iterative reconstruction technique. Images stored on PACS. All CT scanners at this facility use dose modulation, iterative reconstruction, and/or weight based dosing when appropriate to reduce radiation dose to as low as reasonably achievable (ALARA). [facility]: Dose Right [facility]: CareDose [facility]: Dose Right [facility]: Teradose 4D [facility]: Smart [employer] LIMITATIONS: None. FINDINGS: Upper abdomen: Partially imaged. The gallbladder contains layering density, which may represent stones or sludge. Bilateral renal cysts are noted. There is mild thickening of the bilateral adrenal glands, similar to the prior. Thoracic aorta: Bovine arch is noted Heart: No right atrial thrombus. RV/LV ratio: Within normal limits. Pulmonary arteries: Technical: Adequate opacification to the level of the segmental vessels. Pulmonary embolus: There are filling defects within the distal right main pulmonary artery extending into the segmental branches including the medial segmental, anterior basal, and posterior basal segmental arteries. There are also filling defects within the distal left main pulmonary artery with thrombus extending into the basal part. Mediastinum: No pathologic sized middle mediastinal lymphadenopathy. There is stable soft tissue density/thickening along the right right side of the mediastinum. Tracheobronchial tree: Unremarkable. Lungs: Lobar consolidation: Negative. Pleural effusion: Small right Pneumothorax: Negative. Other: There is mild worsening of the diffuse and scattered interstitial thickening particularly involving the lingula and left lower lobe (axial images 58-62, 91). The interstitial thickening with nodularity involving the right lung appears grossly stable compared to the prior. Again noted is a 3.9 x 3.1 cm cavitary lesion within the right lower lobe. Again noted are postsurgical and radiation changes along the medial aspect of the right upper lobe. Bones: There are grossly stable sclerotic lesions seen throughout the thoracic spine. IMPRESSION: Positive for acute PE. The above critical findings were discussed with and acknowledged by Dr. Croft at 11:20 PM on 06/06/2018. Findings of metastatic disease with increased interstitial thickening along the lingula and left lower lobe, which may represent disease progression or a superimposed pneumonia. TECHNICAL DOCUMENTATION: Quality ID # 436: Final reports with documentation of one or more dose reduction techniques (e.g., Automated exposure control, adjustment of the mA and/or kV according to patient size, use of iterative reconstruction technique) 2010 [employer]- All Rights Reserved
[2018-06-07] MEDS ORDERED: ENOXAPARIN SODIUM INJ 100 MG/1 ML DISP.SYRIN SUBCUT ONE (00:33)
[2018-06-07] MEDS ORDERED: NORMAL SALINE 500 ML IV ONE (01:43)
[2018-06-07] MEDS ORDERED: IPRATROPIUM/ALBUTEROL 0.5-2.5 MG/3 ML AMPUL NEB PRN (01:54)
[2018-06-07 03:22] LABS: LIPASE 53.9 U/L (23-300)
[2018-06-07 03:23] LABS: INTERNATIONAL RATION (INR) 1.46; PROTHROMBIN TIME 18.4 SEC (11.4-15.4)
[2018-06-07 03:25] LABS: PARTIAL THROMBOPLASTIN TIME 58.2 SEC (23.5-35.8)
[2018-06-07 03:34] LABS: CREATINE KINASE MB 0.44 ng/mL (<4.55); TROPONIN I 0.129 ng/mL
[2018-06-07 04:20] LABS: FREE T4 (FREE THYROXINE) 1.4 ng/dL (0.78-2.19)
[2018-06-07 04:34] LABS: THYROID STIMULATING HORMONE 2.18 uIU/mL (0.47-4.68)
[2018-06-07 08:04] LABS: APPEARANCE,URINE CLEAR; BILIRUBIN,URINE NEGATIVE (NEGATIVE); COLOR,URINE YELLOW; GLUCOSE, URINE NEGATIVE (NEGATIVE); KETONES,URINE NEGATIVE (NEGATIVE); LEUKOCYTE ESTERASE,URINE NEGATIVE (NEGATIVE); NITRITE,URINE NEGATIVE (NEGATIVE); PROTEIN,URINE 30 mg/dL (NEGATIVE); URINE SPECIFIC GRAVITY 1.049; UROBILINOGEN,URINE NEGATIVE mg/dL (<2.0)
[2018-06-07 08:08] LABS: URINE AMPHETAMINES SCREEN NEGATIVE; URINE BARBITURATES SCREEN NEGATIVE; URINE BENZODIAZEPINES SCREEN NEGATIVE; URINE COCAINE SCREEN NEGATIVE; URINE MARIJUANA (THC) SCREEN NEGATIVE; URINE METHADONE SCREEN NEGATIVE; URINE PHENCYCLIDINE SCREEN NEGATIVE
[2018-06-07] MEDS: NORMAL SALINE 1000 ML 1,000 ML IV PRN ×2 (08:24→17:15)
--- NOTE | 2018-06-07 08:26 | PDOC CONSULTATION ---
Consultation Consult Date: 06/07/18 Attending physician:: SADIE MCCRAY Consult reason:: Chest pain, newly noted PE, stage IV lung ca History of Present Illness Admission Date/PCP: 06/07/18 01:33 SADIE MCCRAY MD Patient complains of: CP/SOB History of Present Illness: MEG MONTGOMERY is a 73 year old male with known h/o recurrent adenocarcinoma of lung who presents with 24 hour hx of SOB and diffuse chest pain, he recently progressed on clinical trial with immunotherapy and was admitted at [facility] about 1 month ago w/ DKA. Recently he has been doing better and we started him on 2nd line chemotherapy with carboplatin and alimta and received cycle #1 of that just last week, this was delayed by almost 2 weeks b/ c of the recent hurricaine. He had CTA chest upon admit to ED which indicated diffuse b/l PE which is the likely cause of the symptoms currently. He was given 1 dose lovenox and started on eliquis by his PCP. His plt ct is 87 today. Cr currently is 1.57. Of note, he has lung only disease at present in terms of cancer. Past Medical History Cardiac Medical History: Reports: Hypertension Denies: Coronary Artery Disease, Myocardial Infarction Pulmonary Medical History: Reports: Chronic Obstructive Pulmonary Disease (COPD) Denies: Asthma, Bronchitis, Pneumonia Neurological Medical History: Denies: Seizures Malignancy Medical History: Reports: Lung Cancer Musculoskeltal Medical History: Denies: Arthritis Psychiatric Medical History: Denies: Depression Hematology: Denies: Anemia Past Surgical History Past Surgical History: Reports: Other - lung bx recently, EGD recently Social History Information Source: Patient Smoking Status: Former Smoker Frequency of Alcohol Use: None Hx Recreational Drug Use: No Hx Prescription Drug Abuse: No - Advance Directive Resuscitation Status: Full Code Family History Family History: Reviewed & Not Pertinent Parental Family History Reviewed: Yes Children Family History Reviewed: Yes Sibling(s) Family History Reviewed.: Yes Medication/Allergy Allergies/Adverse Reactions: No Known Allergies Allergy (Verified 04/27/14 21:43) Review of Systems Constitutional: PRESENT: fatigue, weakness Cardiovascular: PRESENT: chest pain, dyspnea on exertion, palpitations Gastrointestinal: ABSENT: abdominal pain, constipation, diarrhea, hematemesis, hematochezia, nausea, vomiting Musculoskeletal: ABSENT: joint swelling Neurological: ABSENT: abnormal gait, abnormal speech, confusion, dizziness, focal weakness, syncope Endocrine: ABSENT: cold intolerance, heat intolerance, polydipsia, polyuria Physical Exam Vital Signs: Temp Pulse Resp BP Pulse Ox 98.7 F 88 10 L 102/64 100 06/06/18 19:41 06/06/18 19:41 06/07/18 07:31 06/07/18 07:31 06/07/18 07:31 Intake & Output 06/06/18 06/07/18 06/08/18 06:59 06:59 06:59 Intake Total 500 Balance 500 General appearance: PRESENT: no acute distress, well-developed, well-nourished Head exam: PRESENT: atraumatic, normocephalic Eye exam: PRESENT: conjunctiva pink, EOMI, PERRLA. ABSENT: scleral icterus Ear exam: PRESENT: normal external ear exam Mouth exam: PRESENT: moist, tongue midline Neck exam: ABSENT: carotid bruit, JVD, lymphadenopathy, thyromegaly Respiratory exam: PRESENT: clear to auscultation jim. ABSENT: rales, rhonchi, wheezes Cardiovascular exam: PRESENT: RRR. ABSENT: diastolic murmur, rubs, systolic murmur Pulses: PRESENT: normal dorsalis pedis pul Vascular exam: PRESENT: normal capillary refill GI/Abdominal exam: PRESENT: normal bowel sounds, soft. ABSENT: distended, guarding, mass, organolmegaly, rebound, tenderness Rectal exam: PRESENT: deferred Extremities exam: PRESENT: full ROM. ABSENT: calf tenderness, clubbing, pedal edema Neurological exam: PRESENT: alert, awake, oriented to person, oriented to place , oriented to time, oriented to situation, CN II-XII grossly intact. ABSENT: motor sensory deficit Psychiatric exam: PRESENT: appropriate affect, normal mood. ABSENT: homicidal ideation, suicidal ideation Skin exam: PRESENT: dry, intact, warm. ABSENT: cyanosis, rash Results Laboratory Results: 06/07/18 06/07/18 06/07/18 02:52 02:52 02:52 Phosphorus 4.0 Magnesium 1.7 Ammonia < 8.7 L Amylase 92 Lipase 53.9 TSH 2.18 Free T4 1.40 Urine Color Urine Appearance Urine pH Ur Specific [place] Urine Protein Urine Glucose (UA) Urine Ketones Urine Blood Urine Nitrite Ur Leukocyte Esterase Urine WBC (Auto) Urine RBC (Auto) 06/07/18 07:25 Phosphorus Magnesium Ammonia Amylase Lipase TSH Free T4 Urine Color YELLOW Urine Appearance CLEAR Urine pH 5.0 Ur Specific [place] 1.049 Urine Protein 30 H Urine Glucose (UA) NEGATIVE Urine Ketones NEGATIVE Urine Blood SMALL H Urine Nitrite NEGATIVE Ur Leukocyte Esterase NEGATIVE Urine WBC (Auto) 1 Urine RBC (Auto) 2 06/07/18 06/07/18 06/07/18 02:52 02:52 02:52 Creatine Kinase < 20 L CK-MB (CK-2) 0.44 Troponin I 0.129 NT-Pro-B Natriuret Pep 1190 H Impressions: Chest X-Ray 06/06/18 19:51 IMPRESSION: Chronic lung changes. Chest/Abdomen CTA 06/06/18 19:58 IMPRESSION: Positive for acute PE. The above critical findings were discussed with and acknowledged by Dr. Croft at 11:20 PM on 06/06/2018. Findings of metastatic disease with increased interstitial thickening along the lingula and left lower lobe, which may represent disease progression or a superimposed pneumonia. TECHNICAL DOCUMENTATION: Quality ID # 436: Final reports with documentation of one or more dose reduction techniques (e.g., Automated exposure control, adjustment of the mA and/or kV according to patient size, use of iterative reconstruction technique) 2010 [employer]- All Rights Reserved Status: Image reviewed by me Assessment & Plan - Diagnosis (1) Acute pulmonary embolism Qualifiers: Pulmonary embolism type: other Acute cor pulmonale presence: without acute cor pulmonale Qualified Code(s): I26.99 - Other pulmonary embolism without acute cor pulmonale Is this a current diagnosis for this admission?: Yes Plan: Likely provoked from malignancy, agree w/ eliquis, continue current dosing at 5mg BID. Watch plt closely, will need to hold anticoag if plt ct drops <50. (2) Lung cancer Qualifiers: Laterality: right Lung location: upper lobe of lung Qualified Code(s): C34.11 - Malignant neoplasm of upper lobe, right bronchus or lung Is this a current diagnosis for this admission?: Yes Plan: Recurrent lung ca, I reviewed his imaging myself and I think his cavitary lesion is actually improved in size, the R hilar area which was the original area of recurrence is stable in appearance. So overall stable to improved appearance. Continue further rx as outpt. - Time Time Spent: Greater than 70 Minutes - Inpatient Certification Based on my medical assessment, after consideration of the patient's comorbidities, presenting symptoms, or acuity I expect that the services needed warrant INPATIENT care.: Yes I certify that my determination is in accordance with my understanding of Medicare's requirements for reasonable and necessary INPATIENT services [42 CFR 412.3e].: Yes Medical Necessity: Need For Continuous Telemetry Monitoring, Risk of Complication if Not Cared For in Hospital
[2018-06-07 09:42] LABS: CREATINE KINASE MB 0.4 ng/mL (<4.55); TROPONIN I 0.109 ng/mL
[2018-06-07] MEDS: APIXABAN 5 MG TABLET PO SCH ×2 (09:55→17:14)
[2018-06-07 15:36] LABS: CREATINE KINASE MB 0.39 ng/mL (<4.55); TROPONIN I 0.094 ng/mL
--- NOTE | 2018-06-07 19:48 | PDOC H&P ---
History of Present Illness Admission Date/PCP: 06/07/18 01:33 SADIE MCCRAY MD History of Present Illness: MEG MONTGOMERY is a 73 year old male, He has a history of recurrent adenocarcinoma of the lung presently on active chemotherapy, he came to the emergency room last night for evaluation of acute onset shortness of breath. In the emergency room CTA chest was done, it demonstrated mild worsening of interstitial thickening particularly involving the lingula and the left lower lobe. The interstitial thickening with nodularity involving the right lung appears grossly stable. Again noted is a 3.9 x 3.4 cm cavitary lesion within the right lower lobe is also demonstrated filling defects within the distal right main pulmonary artery extending into the segmental branches including the medial segmental, anterior basal and posterior basal segmental arteries. There are also filling defects within the distal left main pulmonary artery with thrombus extending into the basal part Past Medical History Cardiac Medical History: Reports: Hypertension Pulmonary Medical History: Reports: Chronic Obstructive Pulmonary Disease (COPD) Malignancy Medical History: Reports: Lung Cancer Past Surgical History Past Surgical History: Reports: Other - lung bx recently, EGD recently Social History Smoking Status: Former Smoker Cigarettes Packs Per Day: 1 Number of Years Smokin Last Time Smoked: 40 yrs ago Frequency of Alcohol Use: None Hx Recreational Drug Use: No Drugs: None Hx Prescription Drug Abuse: No - Advance Directive Resuscitation Status: Full Code Family History Family History: Reviewed & Not Pertinent Parental Family History Reviewed: Yes Children Family History Reviewed: Yes Sibling(s) Family History Reviewed.: Yes Medication/Allergy Home Medications: Atenolol [Tenormin 50 mg Tablet] 50 mg PO DAILY 06/07/18 Atorvastatin Calcium [Lipitor 40 mg Tablet] 40 mg PO QHS 06/07/18 Fluticasone/Umeclidin/Vilanter [Trelegy 100-62.5-25 Mcg Ellipta 14 Dose/Dpi] 1 puff IH DAILY 06/07/18 Ipratropium/Albuterol Sulfate [Iprat-Albut 0.5-3(2.5) mg/3 ml] 3 ml NEB Q4HP PRN 06/07/18 Losartan/Hydrochlorothiazide [Hyzaar 100-25 Tablet] 1 tab PO DAILY 06/07/18 Metformin HCl [Glucophage 500 mg Tablet] 500 mg PO BID 06/07/18 Allergies/Adverse Reactions: No Known Allergies Allergy (Verified 04/27/14 21:43) Review of Systems Constitutional: ABSENT: chills, fever(s), headache(s), weight gain, weight loss Eyes: ABSENT: visual disturbances Ears: ABSENT: hearing changes Cardiovascular: ABSENT: chest pain, dyspnea on exertion, edema, orthropnea, palpitations Respiratory: PRESENT: dyspnea. ABSENT: cough, hemoptysis Gastrointestinal: ABSENT: abdominal pain, constipation, diarrhea, hematemesis, hematochezia, nausea, vomiting Genitourinary: ABSENT: dysuria, hematuria Musculoskeletal: ABSENT: joint swelling Integumentary: ABSENT: rash, wounds Neurological: ABSENT: abnormal gait, abnormal speech, confusion, dizziness, focal weakness, syncope Psychiatric: ABSENT: anxiety, depression, homidical ideation, suicidal ideation Endocrine: ABSENT: cold intolerance, heat intolerance, menstrual abnormalities, polydipsia, polyuria Hematologic/Lymphatic: ABSENT: easy bleeding, easy bruising, lymphadenopathy Physical Exam Vital Signs: Temp Pulse Resp BP Pulse Ox 98.6 F 74 18 93/52 L 100 06/07/18 14:47 06/07/18 14:47 06/07/18 14:47 06/07/18 14:47 06/07/18 14:47 Intake & Output 06/06/18 06/07/18 06/08/18 06:59 06:59 06:59 Intake Total 500 1960 Balance 500 1960 General appearance: PRESENT: no acute distress Head exam: PRESENT: atraumatic, normocephalic Eye exam: PRESENT: conjunctiva pink, EOMI, PERRLA Ear exam: PRESENT: normal external ear exam Mouth exam: PRESENT: moist, tongue midline Neck exam: PRESENT: full ROM Respiratory exam: PRESENT: rhonchi Cardiovascular exam: PRESENT: RRR, +S1, +S2 Pulses: PRESENT: normal dorsalis pedis pul, +2 pedal pulses bilateral Vascular exam: PRESENT: normal capillary refill GI/Abdominal exam: PRESENT: normal bowel sounds, soft Rectal exam: PRESENT: deferred Neurological exam: PRESENT: alert, awake, oriented to person, oriented to place , oriented to time, oriented to situation, CN II-XII grossly intact Psychiatric exam: PRESENT: appropriate affect, normal mood Skin exam: PRESENT: dry, intact, warm Results Laboratory Results: 06/07/18 06/07/18 06/07/18 02:52 02:52 02:52 Phosphorus 4.0 Magnesium 1.7 Ammonia < 8.7 L Amylase 92 Lipase 53.9 TSH 2.18 Free T4 1.40 Urine Color Urine Appearance Urine pH Ur Specific [place] Urine Protein Urine Glucose (UA) Urine Ketones Urine Blood Urine Nitrite Ur Leukocyte Esterase Urine WBC (Auto) Urine RBC (Auto) 06/07/18 07:25 Phosphorus Magnesium Ammonia Amylase Lipase TSH Free T4 Urine Color YELLOW Urine Appearance CLEAR Urine pH 5.0 Ur Specific [place] 1.049 Urine Protein 30 H Urine Glucose (UA) NEGATIVE Urine Ketones NEGATIVE Urine Blood SMALL H Urine Nitrite NEGATIVE Ur Leukocyte Esterase NEGATIVE Urine WBC (Auto) 1 Urine RBC (Auto) 2 06/07/18 06/07/18 06/07/18 02:52 02:52 02:52 Creatine Kinase < 20 L CK-MB (CK-2) 0.44 Troponin I 0.129 NT-Pro-B Natriuret Pep 1190 H 06/07/18 06/07/18 06/07/18 08:50 08:50 15:00 Creatine Kinase < 20 L < 20 L CK-MB (CK-2) 0.40 Troponin I 0.109 NT-Pro-B Natriuret Pep 06/07/18 15:00 Creatine Kinase CK-MB (CK-2) 0.39 Troponin I 0.094 NT-Pro-B Natriuret Pep Impressions: Chest X-Ray 06/06/18 19:51 IMPRESSION: Chronic lung changes. Chest/Abdomen CTA 06/06/18 19:58 IMPRESSION: Positive for acute PE. The above critical findings were discussed with and acknowledged by Dr. Croft at 11:20 PM on 06/06/2018. Findings of metastatic disease with increased interstitial thickening along the lingula and left lower lobe, which may represent disease progression or a superimposed pneumonia. TECHNICAL DOCUMENTATION: Quality ID # 436: Final reports with documentation of one or more dose reduction techniques (e.g., Automated exposure control, adjustment of the mA and/or kV according to patient size, use of iterative reconstruction technique) 2010 [employer]- All Rights Reserved Assessment & Plan - Diagnosis (1) Bilateral pulmonary embolism Is this a current diagnosis for this admission?: Yes Plan: Start patient on Eliquis 5mg PO BID (2) Thrombocytopenia Is this a current diagnosis for this admission?: Yes (3) Primary adenocarcinoma of lower lobe of right lung Is this a current diagnosis for this admission?: Yes Plan: Per oncology (4) Acute kidney injury superimposed on CKD Is this a current diagnosis for this admission?: Yes (5) Acute kidney injury Is this a current diagnosis for this admission?: Yes
[2018-06-08] MEDS: NORMAL SALINE 1000 ML 1,000 ML IV PRN ×3 (01:54→17:02)
[2018-06-08 06:50] LABS: ALANINE AMINOTRANSFERASE 27 U/L (21-72); ALBUMIN 2.6 g/dL (3.5-5.0); ALKALINE PHOSPHATASE 164 U/L (38-126); ANION GAP 5 (5-19); ASPARTATE AMINO TRANSFERASE 25 U/L (17-59); BILIRUBIN,DIRECT 0.4 mg/dL (0.0-0.4); BILIRUBIN,TOTAL 0.7 mg/dL (0.2-1.3); BLOOD UREA NITROGEN 26 mg/dL (7-20); CALCIUM 9.2 mg/dL (8.4-10.2); CARBON DIOXIDE 24 mmol/L (22-30); CHLORIDE 109 mmol/L (98-107); CHOLESTEROL 154.26 mg/dL (0-200); GLUCOSE 90 mg/dL (75-110); POTASSIUM 4.6 mmol/L (3.6-5.0); SODIUM 138.2 mmol/L (137-145); TOTAL PROTEIN 5.3 g/dL (6.3-8.2); TRIGLYCERIDES 131 mg/dL (<150)
[2018-06-08 06:54] LABS: ABSOLUTE EOSINOPHILS # (AUTO) 0.1 10^3/uL (0.0-0.6); ABSOLUTE LYMPHOCYTES (AUTO) 1.2 10^3/uL (0.5-4.7); ABSOLUTE MONOCYTES (AUTO) 0.1 10^3/uL (0.1-1.4); ABSOLUTE NEUT (AUTO) 3.4 10^3/uL (1.7-8.2); BASOPHILS % (AUTO) 0.7 % (0-2); EOSINOPHILS % (AUTO) 2.1 % (0-6); HEMATOCRIT 25.4 % (37.9-51.0); HEMOGLOBIN 8.5 g/dL (13.5-17.0); MEAN CORPUSCULAR HEMOGLOBIN 30.3 pg (27.0-33.4); MEAN CORPUSCULAR HGB CONC 33.4 g/dL (32.0-36.0); MEAN CORPUSCULAR VOLUME 91 fl (80-97); MONOCYTES % (AUTO) 1.5 % (3-13); RED BLOOD COUNT 2.81 10^6/uL (4.35-5.55); RED CELL DISTRIBUTION WIDTH 17.5 % (11.5-14.0); SEGMENTED NEUTROPHILS % (AUTO) 69.7 % (42-78); TOTAL CELLS COUNTED % (AUTO) 100 %; WHITE BLOOD COUNT 4.8 10^3/uL (4.0-10.5)
[2018-06-08 07:01] LABS: DIRECT LDL 87 mg/dL (<100)
[2018-06-08 07:30] LABS: PLATELET COUNT 62 10^3/uL (150-450)
--- NOTE | 2018-06-08 08:08 | PDOC PROGRESS REPORT ---
Subjective Progress Note for:: 06/08/18 Subjective:: Pt feeling ok this am, took walk down [place] for shower yesterday. Noted that hb drop to 8.5 and plt drop to 62 but pt denies any bleeding and nursing has not noted any bleeding. Reason For Visit: BILATERAL PULMONARY EMBOLISM,ADENOCARCINOMA Physical Exam Vital Signs: Temp Pulse Resp BP Pulse Ox 98.6 F 80 16 93/52 L 100 06/07/18 14:47 06/08/18 06:51 06/07/18 21:00 06/07/18 14:47 06/07/18 21:00 Intake & Output 06/07/18 06/08/18 06/09/18 06:59 06:59 06:59 Intake Total 500 2960 Output Total 500 Balance 500 2460 Weight 92.1 kg General appearance: PRESENT: no acute distress, well-developed, well-nourished Head exam: PRESENT: atraumatic, normocephalic Eye exam: PRESENT: conjunctiva pink, EOMI, PERRLA. ABSENT: scleral icterus Ear exam: PRESENT: normal external ear exam Mouth exam: PRESENT: moist, tongue midline Neck exam: ABSENT: carotid bruit, JVD, lymphadenopathy, thyromegaly Respiratory exam: PRESENT: clear to auscultation jim. ABSENT: rales, rhonchi, wheezes Cardiovascular exam: PRESENT: RRR. ABSENT: diastolic murmur, rubs, systolic murmur Pulses: PRESENT: normal dorsalis pedis pul Vascular exam: PRESENT: normal capillary refill GI/Abdominal exam: PRESENT: normal bowel sounds, soft. ABSENT: distended, guarding, mass, organolmegaly, rebound, tenderness Rectal exam: PRESENT: deferred Extremities exam: PRESENT: full ROM. ABSENT: calf tenderness, clubbing, pedal edema Neurological exam: PRESENT: alert, awake, oriented to person, oriented to place , oriented to time, oriented to situation, CN II-XII grossly intact. ABSENT: motor sensory deficit Psychiatric exam: PRESENT: appropriate affect, normal mood. ABSENT: homicidal ideation, suicidal ideation Skin exam: PRESENT: dry, intact, warm. ABSENT: cyanosis, rash Results Laboratory Results: 06/08/18 06:20 06/08/18 06:20 06/07/18 06/08/18 06/08/18 07:25 06:20 06:20 WBC 4.8 RBC 2.81 L Hgb 8.5 L Hct 25.4 L MCV 91 MCH 30.3 MCHC 33.4 RDW 17.5 H Plt Count 62 L Seg Neutrophils % 69.7 Lymphocytes % 26.0 Monocytes % 1.5 L Eosinophils % 2.1 Basophils % 0.7 Absolute Neutrophils 3.4 Absolute Lymphocytes 1.2 Absolute Monocytes 0.1 Absolute Eosinophils 0.1 Absolute Basophils 0.0 Sodium 138.2 Potassium 4.6 Chloride 109 H Carbon Dioxide 24 Anion Gap 5 BUN 26 H Creatinine 1.32 H Est GFR ( Amer) > 60 Est GFR (Non-Af Amer) 53 L Glucose 90 Calcium 9.2 Total Bilirubin 0.7 AST 25 ALT 27 Alkaline Phosphatase 164 H Total Protein 5.3 L Albumin 2.6 L Triglycerides 131 Cholesterol 154.26 LDL Cholesterol Direct 87 VLDL Cholesterol 26.0 HDL Cholesterol 42 Urine Color YELLOW Urine Appearance CLEAR Urine pH 5.0 Ur Specific [place] 1.049 Urine Protein 30 H Urine Glucose (UA) NEGATIVE Urine Ketones NEGATIVE Urine Blood SMALL H Urine Nitrite NEGATIVE Ur Leukocyte Esterase NEGATIVE Urine WBC (Auto) 1 Urine RBC (Auto) 2 06/07/18 06/07/18 06/07/18 02:52 02:52 02:52 Creatine Kinase < 20 L CK-MB (CK-2) 0.44 Troponin I 0.129 NT-Pro-B Natriuret Pep 1190 H 06/07/18 06/07/18 06/07/18 08:50 08:50 15:00 Creatine Kinase < 20 L < 20 L CK-MB (CK-2) 0.40 Troponin I 0.109 NT-Pro-B Natriuret Pep 06/07/18 15:00 Creatine Kinase CK-MB (CK-2) 0.39 Troponin I 0.094 NT-Pro-B Natriuret Pep Impressions: Chest X-Ray 06/06/18 19:51 IMPRESSION: Chronic lung changes. Chest/Abdomen CTA 06/06/18 19:58 IMPRESSION: Positive for acute PE. The above critical findings were discussed with and acknowledged by Dr. Croft at 11:20 PM on 06/06/2018. Findings of metastatic disease with increased interstitial thickening along the lingula and left lower lobe, which may represent disease progression or a superimposed pneumonia. TECHNICAL DOCUMENTATION: Quality ID # 436: Final reports with documentation of one or more dose reduction techniques (e.g., Automated exposure control, adjustment of the mA and/or kV according to patient size, use of iterative reconstruction technique) 2010 [employer]- All Rights Reserved Assessment & Plan - Diagnosis (1) Acute pulmonary embolism Qualifiers: Pulmonary embolism type: other Acute cor pulmonale presence: without acute cor pulmonale Qualified Code(s): I26.99 - Other pulmonary embolism without acute cor pulmonale Is this a current diagnosis for this admission?: Yes Plan: Hb and plt drop most likely from systemic chemo given 5 days ago and from hemodilution from hydration, less likely from bleeding, continue eliquis for now , asked pt and nursing to watch closely and if active bleeding noted, I will d/ c eliquis. But for now continue eliquis. (2) Lung cancer Qualifiers: Laterality: right Lung location: upper lobe of lung Qualified Code(s): C34.11 - Malignant neoplasm of upper lobe, right bronchus or lung Is this a current diagnosis for this admission?: Yes Plan: Pancytopenia related to chemo, will cont next cycle in about 2 weeks hopefully. (3) Pancytopenia due to antineoplastic chemotherapy Is this a current diagnosis for this admission?: Yes Plan: tpenia and anemia 2nd to recent chemo, watch for now. - Time Time Spent with patient: 35 or more minutes - Inpatient Certification Based on my medical assessment, after consideration of the patient's comorbidities, presenting symptoms, or acuity I expect that the services needed warrant INPATIENT care.: Yes I certify that my determination is in accordance with my understanding of Medicare's requirements for reasonable and necessary INPATIENT services [42 CFR 412.3e].: Yes Medical Necessity: Risk of Complication if Not Cared For in Hospital
[2018-06-08] MEDS: MORPHINE SULFATE 10 MG/ML INJ IV PRN ×3 (08:16→18:25)
[2018-06-08 08:36] LABS: ABSOLUTE RETICS # 0.013 10^6/uL (0.028-0.122)
[2018-06-08 08:48] LABS: IRON(TIBC) 100.1 ug/dL (49-181)
[2018-06-08 09:16] LABS: RETICULOCYTE COUNT (AUTO) 0.46 % (0.66-2.85)
[2018-06-08] MEDS: APIXABAN 5 MG TABLET PO SCH ×2 (09:30→17:01)
[2018-06-08 09:59] LABS: FOLATE > 20.00 ng/mL (>2.76)
--- NOTE | 2018-06-08 13:43 | Physician Advisory Note ---
Physician Advisor ProgressNote .: [facility], I have reviewed the medical record for this patient. Physician Advisor Statement: Please consider documenting, if you agree: 1. What is pt's baseline Cr level? 1.25? 2. "Mild acute hyponatremia, likely due to , tx'd with IVF" 3. "anemia due to " - (acute or chronic? due to malig? chemo? ...) 4. Reason pt needs onging O2, if he does? Thanks! CK
--- NOTE | 2018-06-08 19:12 | PDOC PROGRESS REPORT ---
Subjective Progress Note for:: 06/08/18 Subjective:: Patient complaint of dysphagia to liquid but not to solid, history of esophageal stricture Reason For Visit: BILATERAL PULMONARY EMBOLISM,ADENOCARCINOMA Physical Exam Vital Signs: Temp Pulse Resp BP Pulse Ox 98.0 F 89 18 131/68 H 100 06/08/18 12:04 06/08/18 14:00 06/08/18 12:04 06/08/18 12:04 06/08/18 12:04 Intake & Output 06/07/18 06/08/18 06/09/18 06:59 06:59 06:59 Intake Total 500 2960 2841 Output Total 500 900 Balance 500 2460 1941 Weight 92.1 kg General appearance: PRESENT: no acute distress Eye exam: PRESENT: PERRLA Respiratory exam: PRESENT: rhonchi Cardiovascular exam: PRESENT: +S1, +S2 GI/Abdominal exam: PRESENT: soft Neurological exam: PRESENT: alert Results Laboratory Results: 06/08/18 06:20 06/08/18 06:20 06/08/18 06/08/18 06/08/18 06:20 06:20 06:20 WBC 4.8 RBC 2.81 L Hgb 8.5 L Hct 25.4 L MCV 91 MCH 30.3 MCHC 33.4 RDW 17.5 H Plt Count 62 L Seg Neutrophils % 69.7 Lymphocytes % 26.0 Monocytes % 1.5 L Eosinophils % 2.1 Basophils % 0.7 Absolute Neutrophils 3.4 Absolute Lymphocytes 1.2 Absolute Monocytes 0.1 Absolute Eosinophils 0.1 Absolute Basophils 0.0 Retic Count (auto) 0.46 L Absolute Retic 0.013 L Sodium 138.2 Potassium 4.6 Chloride 109 H Carbon Dioxide 24 Anion Gap 5 BUN 26 H Creatinine 1.32 H Est GFR ( Amer) > 60 Est GFR (Non-Af Amer) 53 L Glucose 90 Calcium 9.2 Iron TIBC % Saturation Ferritin Total Bilirubin 0.7 AST 25 ALT 27 Alkaline Phosphatase 164 H Total Protein 5.3 L Albumin 2.6 L Triglycerides 131 Cholesterol 154.26 LDL Cholesterol Direct 87 VLDL Cholesterol 26.0 HDL Cholesterol 42 Vitamin B12 Folate 06/08/18 06:20 WBC RBC Hgb Hct MCV MCH MCHC RDW Plt Count Seg Neutrophils % Lymphocytes % Monocytes % Eosinophils % Basophils % Absolute Neutrophils Absolute Lymphocytes Absolute Monocytes Absolute Eosinophils Absolute Basophils Retic Count (auto) Absolute Retic Sodium Potassium Chloride Carbon Dioxide Anion Gap BUN Creatinine Est GFR ( Amer) Est GFR (Non-Af Amer) Glucose Calcium Iron 100.1 TIBC 191 L % Saturation 52 Ferritin 762.00 H Total Bilirubin AST ALT Alkaline Phosphatase Total Protein Albumin Triglycerides Cholesterol LDL Cholesterol Direct VLDL Cholesterol HDL Cholesterol Vitamin B12 > 1000.0 H Folate > 20.00 06/07/18 06/07/18 06/07/18 02:52 02:52 02:52 Creatine Kinase < 20 L CK-MB (CK-2) 0.44 Troponin I 0.129 NT-Pro-B Natriuret Pep 1190 H 06/07/18 06/07/18 06/07/18 08:50 08:50 15:00 Creatine Kinase < 20 L < 20 L CK-MB (CK-2) 0.40 Troponin I 0.109 NT-Pro-B Natriuret Pep 06/07/18 15:00 Creatine Kinase CK-MB (CK-2) 0.39 Troponin I 0.094 NT-Pro-B Natriuret Pep Impressions: Chest X-Ray 06/06/18 19:51 IMPRESSION: Chronic lung changes. Chest/Abdomen CTA 06/06/18 19:58 IMPRESSION: Positive for acute PE. The above critical findings were discussed with and acknowledged by Dr. Croft at 11:20 PM on 06/06/2018. Findings of metastatic disease with increased interstitial thickening along the lingula and left lower lobe, which may represent disease progression or a superimposed pneumonia. TECHNICAL DOCUMENTATION: Quality ID # 436: Final reports with documentation of one or more dose reduction techniques (e.g., Automated exposure control, adjustment of the mA and/or kV according to patient size, use of iterative reconstruction technique) 2010 [employer]- All Rights Reserved 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 Is this a current diagnosis for this admission?: Yes Plan: The absolute reticulocyte count is low suggesting myelosuppression from chemotherapy (7) Esophageal stricture Is this a current diagnosis for this admission?: Yes (8) Anemia Qualifiers: Anemia type: other cause Other causes of anemia: antineoplastic chemotherapy Qualified Code(s): D64.81 - Anemia due to antineoplastic chemotherapy; T45.1X5A - Adverse effect of antineoplastic and immunosuppressive drugs, initial encounter; T45.1X5A - Adverse effect of antineoplastic and immunosuppressive drugs, initial encounter Is this a current diagnosis for this admission?: Yes
[2018-06-09 05:51] LABS: ABSOLUTE EOSINOPHILS # (AUTO) 0.1 10^3/uL (0.0-0.6); ABSOLUTE NEUT (AUTO) 1.5 10^3/uL (1.7-8.2); BASOPHILS % (AUTO) 0.7 % (0-2); EOSINOPHILS % (AUTO) 5.2 % (0-6); HEMATOCRIT 22.7 % (37.9-51.0); LYMPHOCYTES % (AUTO) 38.3 % (13-45); MEAN CORPUSCULAR HEMOGLOBIN 30.1 pg (27.0-33.4); MEAN CORPUSCULAR HGB CONC 33.6 g/dL (32.0-36.0); MEAN CORPUSCULAR VOLUME 90 fl (80-97); MONOCYTES % (AUTO) 1.6 % (3-13); RED BLOOD COUNT 2.54 10^6/uL (4.35-5.55); RED CELL DISTRIBUTION WIDTH 17.1 % (11.5-14.0); SEGMENTED NEUTROPHILS % (AUTO) 54.2 % (42-78); TOTAL CELLS COUNTED % (AUTO) 100 %
[2018-06-09 06:03] LABS: ALANINE AMINOTRANSFERASE 30 U/L (21-72); ALBUMIN 2.4 g/dL (3.5-5.0); ALKALINE PHOSPHATASE 146 U/L (38-126); ANION GAP 6 (5-19); ASPARTATE AMINO TRANSFERASE 24 U/L (17-59); BILIRUBIN,DIRECT 0.3 mg/dL (0.0-0.4); BILIRUBIN,TOTAL 0.7 mg/dL (0.2-1.3); BLOOD UREA NITROGEN 18 mg/dL (7-20); CALCIUM 9.1 mg/dL (8.4-10.2); CARBON DIOXIDE 23 mmol/L (22-30); CHLORIDE 109 mmol/L (98-107); GLUCOSE 84 mg/dL (75-110); PLATELET COUNT 45 10^3/uL (150-450); POTASSIUM 4.3 mmol/L (3.6-5.0); SODIUM 137.9 mmol/L (137-145); WHITE BLOOD COUNT 2.7 10^3/uL (4.0-10.5)
[2018-06-09 06:04] LABS: HEMOGLOBIN 7.6 g/dL (13.5-17.0)
[2018-06-09] MEDS: MORPHINE SULFATE 10 MG/ML INJ IV PRN (07:30)
[2018-06-09 07:57] LABS: ABSOLUTE EOSINOPHILS # (AUTO) 0.1 10^3/uL (0.0-0.6); ABSOLUTE LYMPHOCYTES (AUTO) 1.1 10^3/uL (0.5-4.7); ABSOLUTE MONOCYTES (AUTO) 0.1 10^3/uL (0.1-1.4); ABSOLUTE NEUT (AUTO) 1.3 10^3/uL (1.7-8.2); BASOPHILS % (AUTO) 0.4 % (0-2); HEMATOCRIT 23.5 % (37.9-51.0); LYMPHOCYTES % (AUTO) 42.1 % (13-45); MEAN CORPUSCULAR HEMOGLOBIN 30.1 pg (27.0-33.4); MEAN CORPUSCULAR HGB CONC 33.3 g/dL (32.0-36.0); MEAN CORPUSCULAR VOLUME 90 fl (80-97); RED CELL DISTRIBUTION WIDTH 17.4 % (11.5-14.0); SEGMENTED NEUTROPHILS % (AUTO) 50.5 % (42-78); TOTAL CELLS COUNTED % (AUTO) 100 %; WHITE BLOOD COUNT 2.7 10^3/uL (4.0-10.5)
--- NOTE | 2018-06-09 08:09 | PDOC PROGRESS REPORT ---
Subjective Progress Note for:: 06/09/18 Subjective:: Pt having some R chest pain on any movement or exertion, hb drop to 7 range and plt drop to 45 this am. But no active bleeding noted. Reason For Visit: BILATERAL PULMONARY EMBOLISM,ADENOCARCINOMA Physical Exam Vital Signs: Temp Pulse Resp BP Pulse Ox 98.1 F 96 20 136/66 H 100 06/09/18 03:12 06/09/18 03:12 06/09/18 03:12 06/09/18 03:12 06/09/18 03:12 Intake & Output 06/08/18 06/09/18 06/10/18 06:59 06:59 06:59 Intake Total 2960 2841 Output Total 500 1550 Balance 2460 1291 Weight 92.1 kg 94.8 kg General appearance: PRESENT: no acute distress, well-developed, well-nourished Head exam: PRESENT: atraumatic, normocephalic Eye exam: PRESENT: conjunctiva pink, EOMI, PERRLA. ABSENT: scleral icterus Ear exam: PRESENT: normal external ear exam Mouth exam: PRESENT: moist, tongue midline Neck exam: ABSENT: carotid bruit, JVD, lymphadenopathy, thyromegaly Respiratory exam: PRESENT: clear to auscultation jim. ABSENT: rales, rhonchi, wheezes Cardiovascular exam: PRESENT: RRR. ABSENT: diastolic murmur, rubs, systolic murmur Pulses: PRESENT: normal dorsalis pedis pul Vascular exam: PRESENT: normal capillary refill GI/Abdominal exam: PRESENT: normal bowel sounds, soft. ABSENT: distended, guarding, mass, organolmegaly, rebound, tenderness Rectal exam: PRESENT: deferred Extremities exam: PRESENT: full ROM. ABSENT: calf tenderness, clubbing, pedal edema Neurological exam: PRESENT: alert, awake, oriented to person, oriented to place , oriented to time, oriented to situation, CN II-XII grossly intact. ABSENT: motor sensory deficit Psychiatric exam: PRESENT: appropriate affect, normal mood. ABSENT: homicidal ideation, suicidal ideation Skin exam: PRESENT: dry, intact, warm. ABSENT: cyanosis, rash Results Laboratory Results: 06/09/18 05:18 06/08/18 06/08/18 06/09/18 06:20 06:20 05:18 WBC 2.7 L D RBC 2.54 L Hgb 7.6 L Hct 22.7 L MCV 90 MCH 30.1 MCHC 33.6 RDW 17.1 H Plt Count 45 L Seg Neutrophils % 54.2 Lymphocytes % 38.3 Monocytes % 1.6 L Eosinophils % 5.2 Basophils % 0.7 Absolute Neutrophils 1.5 L Absolute Lymphocytes 1.0 Absolute Monocytes 0.0 L Absolute Eosinophils 0.1 Absolute Basophils 0.0 Retic Count (auto) 0.46 L Absolute Retic 0.013 L Sodium Potassium Chloride Carbon Dioxide Anion Gap BUN Creatinine Est GFR ( Amer) Est GFR (Non-Af Amer) Glucose Calcium Iron 100.1 TIBC 191 L % Saturation 52 Ferritin 762.00 H Total Bilirubin AST ALT Alkaline Phosphatase Total Protein Albumin Vitamin B12 > 1000.0 H Folate > 20.00 06/09/18 05:18 WBC RBC Hgb Hct MCV MCH MCHC RDW Plt Count Seg Neutrophils % Lymphocytes % Monocytes % Eosinophils % Basophils % Absolute Neutrophils Absolute Lymphocytes Absolute Monocytes Absolute Eosinophils Absolute Basophils Retic Count (auto) Absolute Retic Sodium 137.9 Potassium 4.3 Chloride 109 H Carbon Dioxide 23 Anion Gap 6 BUN 18 Creatinine 0.99 Est GFR ( Amer) > 60 Est GFR (Non-Af Amer) > 60 Glucose 84 Calcium 9.1 Iron TIBC % Saturation Ferritin Total Bilirubin 0.7 AST 24 ALT 30 Alkaline Phosphatase 146 H Total Protein 5.0 L Albumin 2.4 L Vitamin B12 Folate 06/07/18 06/07/18 06/07/18 02:52 02:52 02:52 Creatine Kinase < 20 L CK-MB (CK-2) 0.44 Troponin I 0.129 NT-Pro-B Natriuret Pep 1190 H 06/07/18 06/07/18 06/07/18 08:50 08:50 15:00 Creatine Kinase < 20 L < 20 L CK-MB (CK-2) 0.40 Troponin I 0.109 NT-Pro-B Natriuret Pep 06/07/18 15:00 Creatine Kinase CK-MB (CK-2) 0.39 Troponin I 0.094 NT-Pro-B Natriuret Pep Impressions: Chest X-Ray 06/06/18 19:51 IMPRESSION: Chronic lung changes. Chest/Abdomen CTA 06/06/18 19:58 IMPRESSION: Positive for acute PE. The above critical findings were discussed with and acknowledged by Dr. Croft at 11:20 PM on 06/06/2018. Findings of metastatic disease with increased interstitial thickening along the lingula and left lower lobe, which may represent disease progression or a superimposed pneumonia. TECHNICAL DOCUMENTATION: Quality ID # 436: Final reports with documentation of one or more dose reduction techniques (e.g., Automated exposure control, adjustment of the mA and/or kV according to patient size, use of iterative reconstruction technique) 2010 [employer]- All Rights Reserved Assessment & Plan - Diagnosis (1) Acute pulmonary embolism Qualifiers: Pulmonary embolism type: other Acute cor pulmonale presence: without acute cor pulmonale Qualified Code(s): I26.99 - Other pulmonary embolism without acute cor pulmonale Is this a current diagnosis for this admission?: Yes Plan: Cont eliquis for now, will repeat cbc in pm and decide on continuing based on plt ct, nursing will call me with results and I will decide on dosing. (2) Lung cancer Qualifiers: Laterality: right Lung location: upper lobe of lung Qualified Code(s): C34.11 - Malignant neoplasm of upper lobe, right bronchus or lung Is this a current diagnosis for this admission?: Yes Plan: s/p cycle #1 chemo 1 week, cont as outpt (3) Pancytopenia due to antineoplastic chemotherapy Is this a current diagnosis for this admission?: Yes Plan: 2nd to chemo, hold on any transfusion for now, watch. (4) Anemia due to antineoplastic chemotherapy Is this a current diagnosis for this admission?: Yes Plan: hb down to 7.6 but hold on transfusion for now, will watch. - Time Time Spent with patient: 35 or more minutes - Inpatient Certification Based on my medical assessment, after consideration of the patient's comorbidities, presenting symptoms, or acuity I expect that the services needed warrant INPATIENT care.: Yes I certify that my determination is in accordance with my understanding of Medicare's requirements for reasonable and necessary INPATIENT services [42 CFR 412.3e].: Yes Medical Necessity: Risk of Complication if Not Cared For in Hospital
[2018-06-09 08:23] LABS: PLATELET COUNT 49 10^3/uL (150-450)
[2018-06-09 08:26] LABS: HEMOGLOBIN 7.8 g/dL (13.5-17.0)
[2018-06-09] MEDS ORDERED: HYDROMORPHONE HCL INJ/PF 2 MG/ML AMPULE ONE (10:25)
[2018-06-09] MEDS: HYDROMORPHONE HCL INJ/PF 2 MG/ML AMPULE IV PRN ×5 (10:25→22:39)
[2018-06-09] MEDS: APIXABAN 5 MG TABLET PO SCH ×2 (10:28→19:46)
[2018-06-09] MEDS: NORMAL SALINE 1000 ML 1,000 ML IV PRN (10:36)
[2018-06-09 17:35] LABS: HEMATOCRIT 22.3 % (37.9-51.0); MEAN CORPUSCULAR HEMOGLOBIN 30.3 pg (27.0-33.4); MEAN CORPUSCULAR HGB CONC 34.6 g/dL (32.0-36.0); MEAN CORPUSCULAR VOLUME 88 fl (80-97); RED BLOOD COUNT 2.54 10^6/uL (4.35-5.55); WHITE BLOOD COUNT 2.5 10^3/uL (4.0-10.5)
[2018-06-09 17:40] LABS: HEMOGLOBIN 7.7 g/dL (13.5-17.0); PLATELET COUNT 44 10^3/uL (150-450)
--- NOTE | 2018-06-09 20:03 | PDOC PROGRESS REPORT ---
Subjective Progress Note for:: 06/09/18 Subjective:: Patient seen by the bedside., He continues to complain of dysphagia Reason For Visit: BILATERAL PULMONARY EMBOLISM,ADENOCARCINOMA Physical Exam Vital Signs: Temp Pulse Resp BP Pulse Ox 98.4 F 84 20 129/69 H 100 06/09/18 14:45 06/09/18 14:45 06/09/18 14:45 06/09/18 14:45 06/09/18 14:45 Intake & Output 06/08/18 06/09/18 06/10/18 06:59 06:59 06:59 Intake Total 2960 3841 1454 Output Total 500 1550 650 Balance 2460 2291 804 Weight 92.1 kg 94.8 kg General appearance: PRESENT: no acute distress Eye exam: PRESENT: PERRLA Respiratory exam: PRESENT: clear to auscultation jim Cardiovascular exam: PRESENT: +S1, +S2 GI/Abdominal exam: PRESENT: soft Neurological exam: PRESENT: alert Results Laboratory Results: 06/09/18 17:25 06/09/18 05:18 06/09/18 06/09/18 06/09/18 05:18 05:18 07:29 WBC 2.7 L D 2.7 L RBC 2.54 L 2.60 L Hgb 7.6 L 7.8 L Hct 22.7 L 23.5 L MCV 90 90 MCH 30.1 30.1 MCHC 33.6 33.3 RDW 17.1 H 17.4 H Plt Count 45 L 49 L Seg Neutrophils % 54.2 50.5 Lymphocytes % 38.3 42.1 Monocytes % 1.6 L 2.0 L Eosinophils % 5.2 5.0 Basophils % 0.7 0.4 Absolute Neutrophils 1.5 L 1.3 L Absolute Lymphocytes 1.0 1.1 Absolute Monocytes 0.0 L 0.1 Absolute Eosinophils 0.1 0.1 Absolute Basophils 0.0 0.0 Sodium 137.9 Potassium 4.3 Chloride 109 H Carbon Dioxide 23 Anion Gap 6 BUN 18 Creatinine 0.99 Est GFR ( Amer) > 60 Est GFR (Non-Af Amer) > 60 Glucose 84 Calcium 9.1 Total Bilirubin 0.7 AST 24 ALT 30 Alkaline Phosphatase 146 H Total Protein 5.0 L Albumin 2.4 L 06/09/18 17:25 WBC 2.5 L RBC 2.54 L Hgb 7.7 L Hct 22.3 L MCV 88 MCH 30.3 MCHC 34.6 RDW 17.0 H Plt Count 44 L Seg Neutrophils % Lymphocytes % Monocytes % Eosinophils % Basophils % Absolute Neutrophils Absolute Lymphocytes Absolute Monocytes Absolute Eosinophils Absolute Basophils Sodium Potassium Chloride Carbon Dioxide Anion Gap BUN Creatinine Est GFR ( Amer) Est GFR (Non-Af Amer) Glucose Calcium Total Bilirubin AST ALT Alkaline Phosphatase Total Protein Albumin 06/07/18 07:25 Clean Catch Midstream Urine Culture - Final 2,000 col/ml 06/07/18 06/07/18 06/07/18 02:52 02:52 02:52 Creatine Kinase < 20 L CK-MB (CK-2) 0.44 Troponin I 0.129 NT-Pro-B Natriuret Pep 1190 H 06/07/18 06/07/18 06/07/18 08:50 08:50 15:00 Creatine Kinase < 20 L < 20 L CK-MB (CK-2) 0.40 Troponin I 0.109 NT-Pro-B Natriuret Pep 06/07/18 15:00 Creatine Kinase CK-MB (CK-2) 0.39 Troponin I 0.094 NT-Pro-B Natriuret Pep Impressions: Chest X-Ray 06/06/18 19:51 IMPRESSION: Chronic lung changes. Chest/Abdomen CTA 06/06/18 19:58 IMPRESSION: Positive for acute PE. The above critical findings were discussed with and acknowledged by Dr. Croft at 11:20 PM on 06/06/2018. Findings of metastatic disease with increased interstitial thickening along the lingula and left lower lobe, which may represent disease progression or a superimposed pneumonia. TECHNICAL DOCUMENTATION: Quality ID # 436: Final reports with documentation of one or more dose reduction techniques (e.g., Automated exposure control, adjustment of the mA and/or kV according to patient size, use of iterative reconstruction technique) 2010 [employer]- All Rights Reserved 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 Is this a current diagnosis for this admission?: Yes (7) Esophageal stricture Is this a current diagnosis for this admission?: Yes (8) Anemia Qualifiers: Anemia type: other cause Other causes of anemia: antineoplastic chemotherapy Qualified Code(s): D64.81 - Anemia due to antineoplastic chemotherapy; T45.1X5A - Adverse effect of antineoplastic and immunosuppressive drugs, initial encounter; T45.1X5A - Adverse effect of antineoplastic and immunosuppressive drugs, initial encounter Is this a current diagnosis for this admission?: Yes (9) Pancytopenia Is this a current diagnosis for this admission?: Yes Plan: Due to myelosuppression
[2018-06-10] MEDS: HYDROMORPHONE HCL INJ/PF 2 MG/ML AMPULE IV PRN ×7 (03:40→22:30)
[2018-06-10 05:55] LABS: HEMATOCRIT 22.1 % (37.9-51.0); MEAN CORPUSCULAR HEMOGLOBIN 30.2 pg (27.0-33.4); MEAN CORPUSCULAR HGB CONC 33.8 g/dL (32.0-36.0); MEAN CORPUSCULAR VOLUME 89 fl (80-97); RED BLOOD COUNT 2.47 10^6/uL (4.35-5.55); RED CELL DISTRIBUTION WIDTH 17.2 % (11.5-14.0); WHITE BLOOD COUNT 2.3 10^3/uL (4.0-10.5)
[2018-06-10 06:02] LABS: PLATELET COUNT 37 10^3/uL (150-450)
[2018-06-10 06:04] LABS: HEMOGLOBIN 7.5 g/dL (13.5-17.0)
[2018-06-10 06:14] LABS: ALANINE AMINOTRANSFERASE 25 U/L (21-72); ALBUMIN 2.5 g/dL (3.5-5.0); ALKALINE PHOSPHATASE 140 U/L (38-126); ANION GAP 5 (5-19); ASPARTATE AMINO TRANSFERASE 24 U/L (17-59); BILIRUBIN,DIRECT 0.5 mg/dL (0.0-0.4); BILIRUBIN,TOTAL 0.8 mg/dL (0.2-1.3); BLOOD UREA NITROGEN 14 mg/dL (7-20); CALCIUM 9.7 mg/dL (8.4-10.2); CARBON DIOXIDE 23 mmol/L (22-30); CHLORIDE 108 mmol/L (98-107); GLUCOSE 88 mg/dL (75-110); SODIUM 136.3 mmol/L (137-145); TOTAL PROTEIN 5.1 g/dL (6.3-8.2)
[2018-06-10 06:20] LABS: ABSOLUTE LYMPHOCYTES# (MANUAL) 0.9 10^3/uL (0.5-4.7); ABSOLUTE MONOCYTES # (MANUAL) 0.1 10^3/uL (0.1-1.4); ABSOLUTE NEUTROPHILS# (MANUAL) 1.1 10^3/uL (1.7-8.2); BAND NEUTROPHILS % (MANUAL) 1 % (3-5); BASOPHILS % (MANUAL) 1 % (0-2); EOSINOPHILS % (MANUAL) 7 % (0-6); LYMPHOCYTES % (MANUAL) 37 % (13-45); MONOCYTES % (MANUAL) 4 % (3-13); SEGMENTED NEUTROPHILS % (MAN) 48 % (42-78); TOTAL CELLS COUNTED 100
[2018-06-10 06:23] LABS: ANISOCYTOSIS 2+; OVALOCYTES SLIGHT; PLATELET COMMENT DECREASED; POIKILOCYTOSIS SLIGHT
--- NOTE | 2018-06-10 11:24 | RADIOLOGY REPORT (SQ) ---
EXAM DESCRIPTION: BARIUM SWALLOW ESOPHAGUS COMPLETED DATE/TIME: 06/10/2018 9:19 am REASON FOR STUDY: dysphagia COMPARISON: Barium swallow 04/20/2018 TECHNIQUE: Under fluoroscopic guidance, patient ingested effervescent granules followed by thick and thin barium. Fluoroscopic spot images and routine radiographic images acquired and stored on PACS. 12 MM BARIUM TABLET GIVEN: Yes. Delay in passage of the mid esophagus LIMITATIONS: None. FLUOROSCOPY TIME: FLUORO TIME: 1.7 minutes of fluoroscopy used. 18 images saved to PACS. FINDINGS: NEUROMUSCULAR COORDINATION OF SWALLOW: Normal. No aspiration. ESOPHAGEAL MOTILITY: Tertiary contractions seen in the proximal esophagus. ESOPHAGEAL MUCOSA: Smooth luminal narrowing of the mid esophagus which has progressed from previous s tudy. 12 mm barium tablet lodged within the area of narrowing approximately 9 cm above the GE juncti on. No masses are seen. GASTRO-ESOPHAGEAL JUNCTION: Small sliding hiatal hernia with gastroesophageal reflux is seen. NON-GI TRACT STRUCTURES: No significant finding. OTHER: No other significant finding. IMPRESSION: PROGRESSION OF THE DISTAL ESOPHAGEAL NARROWING WHICH NOW STARTS APPROXIMATELY 9 TO 10 CM ABOVE THE GE JUNCTION. 12 MM BARIUM TABLET DOES PERSIST IN THIS AREA THROUGHOUT THE PROCEDURE. SM ALL HIATAL HERNIA AND GASTROESOPHAGEAL REFLUX IS AGAIN SEEN. COMMENT: Quality ID 145: Final reports for procedures using fluoroscopy that document radiation exp osure indices, or exposure time and number of fluorographic images (if radiation exposure indices are not available) TECHNICAL DOCUMENTATION: JOB ID: [id number] [employer]- All Rights Reserved Reading location - IP/workstation name: [email or web address] [id number]
[2018-06-10] MEDS ORDERED: HYDROMORPHONE HCL INJ/PF 2 MG/ML AMPULE ONE (11:51)
[2018-06-10] MEDS: APIXABAN 5 MG TABLET PO SCH (11:55)
[2018-06-10] MEDS ORDERED: METOCLOPRAMIDE HCL ORAL SOLN 10 MG/10 ML UDCUP PO PRN (12:11)
[2018-06-10] MEDS ORDERED: METOCLOPRAMIDE HCL ORAL SOLN 10 MG/10 ML UDCUP PO ONE (13:00)
[2018-06-10] MEDS ORDERED: MAG HYDROX/AL HYDROX/SIMETH SUSP 30 ML UDCUP PO ONE (13:00)
[2018-06-10] MEDS ORDERED: LIDOCAINE 2% VISCOUS SOLN 20 ML UDCUP PO ONE (13:00)
[2018-06-10] MEDS: NYSTATIN/DEXAMETH/DIPHEN SUSP 120 ML PO SCH ×3 (14:58→22:33)
[2018-06-10] MEDS ORDERED: DIPHENHYDRAMINE HCL 50 MG/ML VIAL ONE (19:52)
[2018-06-10] MEDS ORDERED: DIPHENHYDRAMINE HCL 50 MG/ML VIAL IV ONE (20:30)
--- NOTE | 2018-06-10 20:50 | EKG REPORT ---
SEVERITY:- ABNORMAL ECG - SINUS RHYTHM RBBB AND LAFB : Confirmed by: Shandra Salgado MD 10-Jun-2018 20:50:25
--- NOTE | 2018-06-10 21:10 | PDOC PROGRESS REPORT ---
Subjective Progress Note for:: 06/10/18 Subjective:: Patient seen by the bedside, he has pancytopenia in the setting of pulmonary embolism Reason For Visit: BILATERAL PULMONARY EMBOLISM,ADENOCARCINOMA Physical Exam Vital Signs: Temp Pulse Resp BP Pulse Ox 98.4 F 100 20 131/80 H 93 06/10/18 11:24 06/10/18 14:00 06/10/18 11:24 06/10/18 11:24 06/10/18 11:24 Intake & Output 06/09/18 06/10/18 06/11/18 06:59 06:59 06:59 Intake Total 3841 1454 850 Output Total 1550 1690 300 Balance 2291 -236 550 Weight 94.8 kg 94.8 kg General appearance: PRESENT: no acute distress Eye exam: PRESENT: PERRLA Respiratory exam: PRESENT: clear to auscultation jim Cardiovascular exam: PRESENT: +S1, +S2 GI/Abdominal exam: PRESENT: soft Neurological exam: PRESENT: alert Results Laboratory Results: 06/10/18 04:44 06/10/18 04:44 06/10/18 06/10/18 06/10/18 04:44 04:44 04:44 WBC 2.3 L RBC 2.47 L Hgb 7.5 L Hct 22.1 L MCV 89 MCH 30.2 MCHC 33.8 RDW 17.2 H Plt Count 37 L Seg Neutrophils % Not Reportable Lymphocytes % Not Reportable Monocytes % Not Reportable Eosinophils % Not Reportable Basophils % Not Reportable Absolute Neutrophils Not Reportable Absolute Lymphocytes Not Reportable Absolute Monocytes Not Reportable Absolute Eosinophils Not Reportable Absolute Basophils Not Reportable Sodium 136.3 L Potassium 4.0 Chloride 108 H Carbon Dioxide 23 Anion Gap 5 BUN 14 Creatinine 0.92 Est GFR ( Amer) > 60 Est GFR (Non-Af Amer) > 60 Glucose 88 Calcium 9.7 Magnesium 1.5 L Total Bilirubin 0.8 AST 24 ALT 25 Alkaline Phosphatase 140 H Total Protein 5.1 L Albumin 2.5 L 06/07/18 06/07/18 06/07/18 02:52 02:52 02:52 Creatine Kinase < 20 L CK-MB (CK-2) 0.44 Troponin I 0.129 NT-Pro-B Natriuret Pep 1190 H 06/07/18 06/07/18 06/07/18 08:50 08:50 15:00 Creatine Kinase < 20 L < 20 L CK-MB (CK-2) 0.40 Troponin I 0.109 NT-Pro-B Natriuret Pep 06/07/18 15:00 Creatine Kinase CK-MB (CK-2) 0.39 Troponin I 0.094 NT-Pro-B Natriuret Pep Impressions: Chest X-Ray 06/06/18 19:51 IMPRESSION: Chronic lung changes. Chest/Abdomen CTA 06/06/18 19:58 IMPRESSION: Positive for acute PE. The above critical findings were discussed with and acknowledged by Dr. Croft at 11:20 PM on 06/06/2018. Findings of metastatic disease with increased interstitial thickening along the lingula and left lower lobe, which may represent disease progression or a superimposed pneumonia. TECHNICAL DOCUMENTATION: Quality ID # 436: Final reports with documentation of one or more dose reduction techniques (e.g., Automated exposure control, adjustment of the mA and/or kV according to patient size, use of iterative reconstruction technique) 2010 [employer] All Rights Reserved Esophagus X-Ray 06/10/18 00:00 IMPRESSION: PROGRESSION OF THE DISTAL ESOPHAGEAL NARROWING WHICH NOW STARTS APPROXIMATELY 9 TO 10 CM ABOVE THE GE JUNCTION. 12 MM BARIUM TABLET DOES PERSIST IN THIS AREA THROUGHOUT THE PROCEDURE. SMALL HIATAL HERNIA AND GASTROESOPHAGEAL REFLUX IS AGAIN SEEN. 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 Is this a current diagnosis for this admission?: Yes (7) Esophageal stricture Is this a current diagnosis for this admission?: Yes (8) Anemia Qualifiers: Anemia type: other cause Other causes of anemia: antineoplastic chemotherapy Qualified Code(s): D64.81 - Anemia due to antineoplastic chemotherapy; T45.1X5A - Adverse effect of antineoplastic and immunosuppressive drugs, initial encounter; T45.1X5A - Adverse effect of antineoplastic and immunosuppressive drugs, initial encounter Is this a current diagnosis for this admission?: Yes (9) Pancytopenia Is this a current diagnosis for this admission?: Yes - Plan Summary Plan Summary: Continue treatment
[2018-06-11] MEDS: HYDROMORPHONE HCL INJ/PF 2 MG/ML AMPULE IV PRN ×6 (03:35→22:08)
[2018-06-11] MEDS: NYSTATIN/DEXAMETH/DIPHEN SUSP 120 ML PO SCH ×4 (10:25→22:02)
[2018-06-11 11:01] LABS: HEMATOCRIT 21.7 % (37.9-51.0); MEAN CORPUSCULAR HEMOGLOBIN 30.3 pg (27.0-33.4); MEAN CORPUSCULAR HGB CONC 34.2 g/dL (32.0-36.0); MEAN CORPUSCULAR VOLUME 89 fl (80-97); RED BLOOD COUNT 2.44 10^6/uL (4.35-5.55); RED CELL DISTRIBUTION WIDTH 16.8 % (11.5-14.0); WHITE BLOOD COUNT 3.2 10^3/uL (4.0-10.5)
[2018-06-11 11:34] LABS: ABSOLUTE LYMPHOCYTES# (MANUAL) 1.3 10^3/uL (0.5-4.7); ABSOLUTE NEUTROPHILS# (MANUAL) 1.7 10^3/uL (1.7-8.2); BASOPHILS % (MANUAL) 1 % (0-2); EOSINOPHILS % (MANUAL) 4 % (0-6); LYMPHOCYTES % (MANUAL) 41 % (13-45); MONOCYTES % (MANUAL) 0 % (3-13); SEGMENTED NEUTROPHILS % (MAN) 54 % (42-78); TOTAL CELLS COUNTED 100
[2018-06-11 11:37] LABS: ANISOCYTOSIS 1+; PLATELET COMMENT DECREASED
[2018-06-11 11:41] LABS: PLATELET COUNT 29 10^3/uL (150-450)
[2018-06-11 11:42] LABS: HEMOGLOBIN 7.4 g/dL (13.5-17.0)
[2018-06-11] MEDS ORDERED: SODIUM CHLORIDE NASAL SPRAY 44 ML NASL PRN (14:33)
[2018-06-11] MEDS ORDERED: DIPHENHYDRAMINE HCL 25 MG CAPSULE PO PRN (14:47)
--- NOTE | 2018-06-11 14:48 | PDOC PROGRESS REPORT ---
Subjective Progress Note for:: 06/11/18 Subjective:: Patient complains of itching in his back and constipation. He also reports a nose bleed this morning briefly due to oxygen. ROS: No chest pain, some dyspnea. Good appetite. No nausea. No bleeding other than nose this morning. Reason For Visit: BILATERAL PULMONARY EMBOLISM,ADENOCARCINOMA Physical Exam Vital Signs: Temp Pulse Resp BP Pulse Ox 98.4 F 105 H 20 138/80 H 98 06/11/18 11:28 06/11/18 11:28 06/11/18 11:28 06/11/18 11:28 06/11/18 11:28 Intake & Output 06/10/18 06/11/18 06/12/18 06:59 06:59 06:59 Intake Total 1454 850 354 Output Total 1690 300 300 Balance -236 550 54 Weight 94.8 kg 93.2 kg General appearance: PRESENT: no acute distress Exam: Overweight, 73 year old male. Family at bedside. Head exam: PRESENT: atraumatic, normocephalic Respiratory exam: PRESENT: clear to auscultation jim, unlabored Cardiovascular exam: PRESENT: RRR GI/Abdominal exam: PRESENT: soft. ABSENT: tenderness Extremities exam: PRESENT: other - TEDs in place. ABSENT: pedal edema Neurological exam: PRESENT: alert, awake Skin exam: PRESENT: normal color Results Laboratory Results: 06/11/18 10:31 06/10/18 04:44 06/11/18 10:31 WBC 3.2 L RBC 2.44 L Hgb 7.4 L Hct 21.7 L MCV 89 MCH 30.3 MCHC 34.2 RDW 16.8 H Plt Count 29 L* Seg Neutrophils % Not Reportable Lymphocytes % Not Reportable Monocytes % Not Reportable Eosinophils % Not Reportable Basophils % Not Reportable Absolute Neutrophils Not Reportable Absolute Lymphocytes Not Reportable Absolute Monocytes Not Reportable Absolute Eosinophils Not Reportable Absolute Basophils Not Reportable 06/07/18 06/07/18 06/07/18 02:52 02:52 02:52 Creatine Kinase < 20 L CK-MB (CK-2) 0.44 Troponin I 0.129 NT-Pro-B Natriuret Pep 1190 H 06/07/18 06/07/18 06/07/18 08:50 08:50 15:00 Creatine Kinase < 20 L < 20 L CK-MB (CK-2) 0.40 Troponin I 0.109 NT-Pro-B Natriuret Pep 06/07/18 15:00 Creatine Kinase CK-MB (CK-2) 0.39 Troponin I 0.094 NT-Pro-B Natriuret Pep Impressions: Chest X-Ray 06/06/18 19:51 IMPRESSION: Chronic lung changes. Chest/Abdomen CTA 06/06/18 19:58 IMPRESSION: Positive for acute PE. The above critical findings were discussed with and acknowledged by Dr. Croft at 11:20 PM on 06/06/2018. Findings of metastatic disease with increased interstitial thickening along the lingula and left lower lobe, which may represent disease progression or a superimposed pneumonia. TECHNICAL DOCUMENTATION: Quality ID # 436: Final reports with documentation of one or more dose reduction techniques (e.g., Automated exposure control, adjustment of the mA and/or kV according to patient size, use of iterative reconstruction technique) 2010 [employer]- All Rights Reserved Esophagus X-Ray 06/10/18 00:00 IMPRESSION: PROGRESSION OF THE DISTAL ESOPHAGEAL NARROWING WHICH NOW STARTS APPROXIMATELY 9 TO 10 CM ABOVE THE GE JUNCTION. 12 MM BARIUM TABLET DOES PERSIST IN THIS AREA THROUGHOUT THE PROCEDURE. SMALL HIATAL HERNIA AND GASTROESOPHAGEAL REFLUX IS AGAIN SEEN. Assessment & Plan - Diagnosis (1) Pancytopenia due to antineoplastic chemotherapy Is this a current diagnosis for this admission?: Yes Plan: WBC starting to improve. I agree with blood transfusion today. PLT even lower. We discussed platelet transfusion, but I see no need for this unless there is significant bleeding. I agree with holding blood thinners for PLT < 50. (2) Bilateral pulmonary embolism Is this a current diagnosis for this admission?: Yes Plan: Patient does not appear to be in respiratory distress currently. Blood thinners are on hold due to thrombocytopenia. (3) Lung cancer Qualifiers: Laterality: right Lung location: upper lobe of lung Qualified Code(s): C34.11 - Malignant neoplasm of upper lobe, right bronchus or lung Is this a current diagnosis for this admission?: Yes Plan: Patient has been on clinical trial. All treatment currently on hold. Hopefully , blood counts will improve over the next few days. Watch for neutropenic fever , but today ANC is up to 1.7! - Plan Summary Plan Summary: I will add laxatives for the constipation. I will also give PRN benadryl for the itching.
--- NOTE | 2018-06-11 16:25 | PDOC PROGRESS REPORT ---
Subjective Progress Note for:: 06/11/18 Subjective:: Patient had episode of incidental nose bled earlier this morning. Probably due to dryness from nasal cannula oxygen usage. No chest pain, palpitation, fever or chills. No nausea, vomiting or abdominal pain. He reported ongoing constipation. No bowel movement since admission. Reason For Visit: BILATERAL PULMONARY EMBOLISM,ADENOCARCINOMA Physical Exam Vital Signs: Temp Pulse Resp BP Pulse Ox 98.9 F 116 H 21 H 149/75 H 95 06/11/18 16:12 06/11/18 16:12 06/11/18 16:12 06/11/18 16:12 06/11/18 16:12 Intake & Output 06/10/18 06/11/18 06/12/18 06:59 06:59 06:59 Intake Total 1454 850 354 Output Total 1690 300 300 Balance -236 550 54 Weight 94.8 kg 93.2 kg General appearance: PRESENT: no acute distress Head exam: PRESENT: atraumatic, normocephalic Eye exam: PRESENT: conjunctiva pink, EOMI, PERRLA. ABSENT: scleral icterus Ear exam: PRESENT: normal external ear exam Mouth exam: PRESENT: moist Respiratory exam: PRESENT: clear to auscultation jim Cardiovascular exam: PRESENT: RRR. ABSENT: diastolic murmur, rubs, systolic murmur Vascular exam: PRESENT: pallor. ABSENT: normal capillary refill GI/Abdominal exam: PRESENT: normal bowel sounds, soft. ABSENT: distended, guarding, mass, organolmegaly, rebound, tenderness Extremities exam: ABSENT: pedal edema Musculoskeletal exam: PRESENT: normal inspection Neurological exam: PRESENT: alert, awake, oriented to person, oriented to place , oriented to time, oriented to situation, CN II-XII grossly intact. ABSENT: motor sensory deficit Psychiatric exam: PRESENT: appropriate affect, normal mood. ABSENT: homicidal ideation, suicidal ideation Skin exam: PRESENT: dry, warm Results Laboratory Results: 06/11/18 10:31 06/10/18 04:44 06/11/18 06/11/18 10:31 13:45 WBC 3.2 L RBC 2.44 L Hgb 7.4 L Hct 21.7 L MCV 89 MCH 30.3 MCHC 34.2 RDW 16.8 H Plt Count 29 L* Seg Neutrophils % Not Reportable Lymphocytes % Not Reportable Monocytes % Not Reportable Eosinophils % Not Reportable Basophils % Not Reportable Absolute Neutrophils Not Reportable Absolute Lymphocytes Not Reportable Absolute Monocytes Not Reportable Absolute Eosinophils Not Reportable Absolute Basophils Not Reportable Blood Type O POSITIVE Antibody Screen NEGATIVE 06/07/18 06/07/18 06/07/18 02:52 02:52 02:52 Creatine Kinase < 20 L CK-MB (CK-2) 0.44 Troponin I 0.129 NT-Pro-B Natriuret Pep 1190 H 06/07/18 06/07/18 06/07/18 08:50 08:50 15:00 Creatine Kinase < 20 L < 20 L CK-MB (CK-2) 0.40 Troponin I 0.109 NT-Pro-B Natriuret Pep 06/07/18 15:00 Creatine Kinase CK-MB (CK-2) 0.39 Troponin I 0.094 NT-Pro-B Natriuret Pep Impressions: Chest X-Ray 06/06/18 19:51 IMPRESSION: Chronic lung changes. Chest/Abdomen CTA 06/06/18 19:58 IMPRESSION: Positive for acute PE. The above critical findings were discussed with and acknowledged by Dr. Croft at 11:20 PM on 06/06/2018. Findings of metastatic disease with increased interstitial thickening along the lingula and left lower lobe, which may represent disease progression or a superimposed pneumonia. TECHNICAL DOCUMENTATION: Quality ID # 436: Final reports with documentation of one or more dose reduction techniques (e.g., Automated exposure control, adjustment of the mA and/or kV according to patient size, use of iterative reconstruction technique) 2010 [employer]- All Rights Reserved Esophagus X-Ray 06/10/18 00:00 IMPRESSION: PROGRESSION OF THE DISTAL ESOPHAGEAL NARROWING WHICH NOW STARTS APPROXIMATELY 9 TO 10 CM ABOVE THE GE JUNCTION. 12 MM BARIUM TABLET DOES PERSIST IN THIS AREA THROUGHOUT THE PROCEDURE. SMALL HIATAL HERNIA AND GASTROESOPHAGEAL REFLUX IS AGAIN SEEN. Assessment & Plan - Diagnosis (1) Bilateral pulmonary embolism Is this a current diagnosis for this admission?: Yes Plan: Continue current medication management. (2) Anemia due to antineoplastic chemotherapy Is this a current diagnosis for this admission?: Yes Plan: Transfuse 2 units PRBC. Give Lasix 20 mg between transfused blood units. (3) Thrombocytopenia Is this a current diagnosis for this admission?: Yes Plan: Monitor CBC indices post transfusion. ? consumptive coagulopathy. Off Eliquis. I discussed case with Dr. Aldrich. hem/onc team. (4) Malignant neoplasm of lung Qualifiers: Laterality: right Lung location: middle lobe of lung Qualified Code(s): C34.2 - Malignant neoplasm of middle lobe, bronchus or lung Is this a current diagnosis for this admission?: Yes Plan: Continue current management as per hem/onc team recommendations. - Time Time Spent with patient: 25-34 minutes Medications reviewed and adjusted accordingly: Yes Anticipated discharge: Home with Homehealth Within: Other - Inpatient Certification Based on my medical assessment, after consideration of the patient's comorbidities, presenting symptoms, or acuity I expect that the services needed warrant INPATIENT care.: Yes I certify that my determination is in accordance with my understanding of Medicare's requirements for reasonable and necessary INPATIENT services [42 CFR 412.3e].: Yes Medical Necessity: Need Close Monitoring Due to Risk of Patient Decompensation, Need For IV Fluids, Need For Continuous Telemetry Monitoring, Risk of Complication if Not Cared For in Hospital - Plan Summary Plan Summary: See covering attending physician orders.
[2018-06-11] MEDS ORDERED: FUROSEMIDE INJ/PF 20 MG/2 ML SDV IV ONE (17:00)
[2018-06-11] MEDS: SENNOSIDES/DOCUSATE 8.6-50 MG 1 EACH TABLET PO SCH (18:50)
[2018-06-11] MEDS: MAGNESIUM SULFATE/D5W 1 GM/100 ML RTUPB IV SCH ×2 (18:52→20:42)
[2018-06-11 23:50] LABS: HEMATOCRIT 25.4 % (37.9-51.0); HEMOGLOBIN 9.1 g/dL (13.5-17.0); MEAN CORPUSCULAR HEMOGLOBIN 31.2 pg (27.0-33.4); MEAN CORPUSCULAR HGB CONC 35.7 g/dL (32.0-36.0); MEAN CORPUSCULAR VOLUME 87 fl (80-97); RED BLOOD COUNT 2.92 10^6/uL (4.35-5.55); RED CELL DISTRIBUTION WIDTH 16.3 % (11.5-14.0); WHITE BLOOD COUNT 3.3 10^3/uL (4.0-10.5)
[2018-06-12 00:19] LABS: ABSOLUTE LYMPHOCYTES# (MANUAL) 1.3 10^3/uL (0.5-4.7); ABSOLUTE MONOCYTES # (MANUAL) 0.1 10^3/uL (0.1-1.4); ABSOLUTE NEUTROPHILS# (MANUAL) 1.8 10^3/uL (1.7-8.2); BASOPHILS % (MANUAL) 2 % (0-2); EOSINOPHILS % (MANUAL) 1 % (0-6); LYMPHOCYTES % (MANUAL) 38 % (13-45); MONOCYTES % (MANUAL) 4 % (3-13); SEGMENTED NEUTROPHILS % (MAN) 54 % (42-78); TOTAL CELLS COUNTED 100
[2018-06-12 00:27] LABS: TOXIC GRANULATION 1+; TOXIC VACUOLATION PRESENT
[2018-06-12 00:29] LABS: ANISOCYTOSIS 1+; HELMET CELLS SLIGHT; OVALOCYTES SLIGHT; PLATELET COMMENT DECREASED; POIKILOCYTOSIS 1+; ROULEAUX SLIGHT; TEAR DROP CELLS SLIGHT
[2018-06-12 00:35] LABS: PLATELET COUNT 22 10^3/uL (150-450)
[2018-06-12] MEDS: HYDROMORPHONE HCL INJ/PF 2 MG/ML AMPULE IV PRN ×6 (02:06→20:39)
[2018-06-12 05:25] LABS: ALANINE AMINOTRANSFERASE 28 U/L (21-72); ALBUMIN 2.9 g/dL (3.5-5.0); ALKALINE PHOSPHATASE 148 U/L (38-126); ANION GAP 6 (5-19); ASPARTATE AMINO TRANSFERASE 28 U/L (17-59); BILIRUBIN,DIRECT 0.7 mg/dL (0.0-0.4); BILIRUBIN,TOTAL 1.9 mg/dL (0.2-1.3); BLOOD UREA NITROGEN 14 mg/dL (7-20); CALCIUM 9.9 mg/dL (8.4-10.2); CARBON DIOXIDE 26 mmol/L (22-30); CHLORIDE 105 mmol/L (98-107); GLUCOSE 97 mg/dL (75-110); POTASSIUM 3.8 mmol/L (3.6-5.0); SODIUM 136.7 mmol/L (137-145); TOTAL PROTEIN 5.6 g/dL (6.3-8.2)
[2018-06-12 06:55] LABS: HEMATOCRIT 26.1 % (37.9-51.0); HEMOGLOBIN 9.3 g/dL (13.5-17.0); MEAN CORPUSCULAR HEMOGLOBIN 30.6 pg (27.0-33.4); MEAN CORPUSCULAR HGB CONC 35.5 g/dL (32.0-36.0); MEAN CORPUSCULAR VOLUME 86 fl (80-97); RED BLOOD COUNT 3.03 10^6/uL (4.35-5.55); RED CELL DISTRIBUTION WIDTH 16.3 % (11.5-14.0); WHITE BLOOD COUNT 3.5 10^3/uL (4.0-10.5)
[2018-06-12 07:21] LABS: ABSOLUTE LYMPHOCYTES# (MANUAL) 1.6 10^3/uL (0.5-4.7); ABSOLUTE NEUTROPHILS# (MANUAL) 1.8 10^3/uL (1.7-8.2); BASOPHILS % (MANUAL) 1 % (0-2); EOSINOPHILS % (MANUAL) 4 % (0-6); LYMPHOCYTES % (MANUAL) 41 % (13-45); MONOCYTES % (MANUAL) 0 % (3-13); SEGMENTED NEUTROPHILS % (MAN) 50 % (42-78); TOTAL CELLS COUNTED 100
[2018-06-12 07:27] LABS: ANISOCYTOSIS 1+; HELMET CELLS SLIGHT; TOXIC GRANULATION 1+
[2018-06-12 07:28] LABS: OVALOCYTES SLIGHT; PLATELET COMMENT DECREASED; POIKILOCYTOSIS 1+; TEAR DROP CELLS SLIGHT
[2018-06-12 07:32] LABS: PLATELET COUNT 23 10^3/uL (150-450)
[2018-06-12] MEDS: SENNOSIDES/DOCUSATE 8.6-50 MG 1 EACH TABLET PO SCH ×2 (09:37→17:21)
[2018-06-12] MEDS: NYSTATIN/DEXAMETH/DIPHEN SUSP 120 ML PO SCH ×4 (09:37→21:06)
[2018-06-12] MEDS ORDERED: METOPROLOL TARTRATE PF/INJ 5 MG/5 ML SDV IV ONE (10:27)
--- NOTE | 2018-06-12 12:07 | PDOC PROGRESS REPORT ---
Subjective Progress Note for:: 06/12/18 Subjective:: Patient had episode of sustained VT and SVT earlier today. Probably related to his underlying bilateral pulmonary embolism and pulmonary HTN. His electrolytes were within normal range this morning. He experienced some chest pain during the episode but he claimed due to moving around in his bed. No fever or chills. No nausea, vomiting or abdominal pain. Reason For Visit: BILATERAL PULMONARY EMBOLISM,ADENOCARCINOMA Physical Exam Vital Signs: Temp Pulse Resp BP Pulse Ox 98.3 F 105 H 20 148/81 H 97 06/12/18 11:29 06/12/18 11:29 06/12/18 11:29 06/12/18 11:29 06/12/18 11:29 Intake & Output 06/11/18 06/12/18 06/13/18 06:59 06:59 06:59 Intake Total 850 1581 354 Output Total 300 1800 400 Balance 550 -219 -46 Weight 93.2 kg 95 kg Physical Exam: General appearance: PRESENT: no acute distress Head exam: PRESENT: atraumatic, normocephalic Eye exam: PRESENT: conjunctiva pink, EOMI, PERRLA. ABSENT: scleral icterus Ear exam: PRESENT: normal external ear exam Mouth exam: PRESENT: moist Respiratory exam: PRESENT: clear to auscultation jim Cardiovascular exam: PRESENT: RRR. ABSENT: diastolic murmur, rubs, systolic murmur Vascular exam: PRESENT: pallor. ABSENT: normal capillary refill GI/Abdominal exam: PRESENT: normal bowel sounds, soft. ABSENT: distended, guarding, mass, organomegaly, rebound, tenderness Extremities exam: ABSENT: pedal edema Musculoskeletal exam: PRESENT: normal inspection Neurological exam: PRESENT: alert, awake, oriented to person, oriented to place , oriented to time, oriented to situation, CN II-XII grossly intact. ABSENT: motor sensory deficit Psychiatric exam: PRESENT: appropriate affect, normal mood. ABSENT: homicidal ideation, suicidal ideation Skin exam: PRESENT: dry, warm Results Laboratory Results: 06/12/18 04:41 06/12/18 04:41 06/11/18 06/11/18 06/12/18 13:45 23:39 04:41 WBC 3.3 L RBC 2.92 L Hgb 9.1 L Hct 25.4 L MCV 87 MCH 31.2 MCHC 35.7 RDW 16.3 H Plt Count 22 L* Seg Neutrophils % Not Reportable Lymphocytes % Not Reportable Monocytes % Not Reportable Eosinophils % Not Reportable Basophils % Not Reportable Absolute Neutrophils Not Reportable Absolute Lymphocytes Not Reportable Absolute Monocytes Not Reportable Absolute Eosinophils Not Reportable Absolute Basophils Not Reportable Sodium 136.7 L Potassium 3.8 Chloride 105 Carbon Dioxide 26 Anion Gap 6 BUN 14 Creatinine 0.98 Est GFR ( Amer) > 60 Est GFR (Non-Af Amer) > 60 Glucose 97 Calcium 9.9 Magnesium 1.8 Total Bilirubin 1.9 H AST 28 ALT 28 Alkaline Phosphatase 148 H Total Protein 5.6 L Albumin 2.9 L Blood Type O POSITIVE Antibody Screen NEGATIVE 06/12/18 04:41 WBC 3.5 L RBC 3.03 L Hgb 9.3 L Hct 26.1 L MCV 86 MCH 30.6 MCHC 35.5 RDW 16.3 H Plt Count 23 L* Seg Neutrophils % Not Reportable Lymphocytes % Not Reportable Monocytes % Not Reportable Eosinophils % Not Reportable Basophils % Not Reportable Absolute Neutrophils Not Reportable Absolute Lymphocytes Not Reportable Absolute Monocytes Not Reportable Absolute Eosinophils Not Reportable Absolute Basophils Not Reportable Sodium Potassium Chloride Carbon Dioxide Anion Gap BUN Creatinine Est GFR ( Amer) Est GFR (Non-Af Amer) Glucose Calcium Magnesium Total Bilirubin AST ALT Alkaline Phosphatase Total Protein Albumin Blood Type Antibody Screen 06/07/18 08:50 Blood Blood Culture - Final NO GROWTH IN 5 DAYS 06/07/18 02:52 Blood Blood Culture - Final NO GROWTH IN 5 DAYS 06/07/18 06/07/18 06/07/18 02:52 02:52 02:52 Creatine Kinase < 20 L CK-MB (CK-2) 0.44 Troponin I 0.129 NT-Pro-B Natriuret Pep 1190 H 06/07/18 06/07/18 06/07/18 08:50 08:50 15:00 Creatine Kinase < 20 L < 20 L CK-MB (CK-2) 0.40 Troponin I 0.109 NT-Pro-B Natriuret Pep 06/07/18 15:00 Creatine Kinase CK-MB (CK-2) 0.39 Troponin I 0.094 NT-Pro-B Natriuret Pep Impressions: Chest X-Ray 06/06/18 19:51 IMPRESSION: Chronic lung changes. Chest/Abdomen CTA 06/06/18 19:58 IMPRESSION: Positive for acute PE. The above critical findings were discussed with and acknowledged by Dr. Croft at 11:20 PM on 06/06/2018. Findings of metastatic disease with increased interstitial thickening along the lingula and left lower lobe, which may represent disease progression or a superimposed pneumonia. TECHNICAL DOCUMENTATION: Quality ID # 436: Final reports with documentation of one or more dose reduction techniques (e.g., Automated exposure control, adjustment of the mA and/or kV according to patient size, use of iterative reconstruction technique) 2010 [employer]- All Rights Reserved Esophagus X-Ray 06/10/18 00:00 IMPRESSION: PROGRESSION OF THE DISTAL ESOPHAGEAL NARROWING WHICH NOW STARTS APPROXIMATELY 9 TO 10 CM ABOVE THE GE JUNCTION. 12 MM BARIUM TABLET DOES PERSIST IN THIS AREA THROUGHOUT THE PROCEDURE. SMALL HIATAL HERNIA AND GASTROESOPHAGEAL REFLUX IS AGAIN SEEN. Assessment & Plan - Diagnosis (1) Bilateral pulmonary embolism Is this a current diagnosis for this admission?: Yes (2) Anemia due to antineoplastic chemotherapy Is this a current diagnosis for this admission?: Yes (3) Thrombocytopenia Is this a current diagnosis for this admission?: Yes (4) Malignant neoplasm of lung Qualifiers: Laterality: right Lung location: middle lobe of lung Qualified Code(s): C34.2 - Malignant neoplasm of middle lobe, bronchus or lung Is this a current diagnosis for this admission?: Yes (5) PSVT (paroxysmal supraventricular tachycardia) Is this a current diagnosis for this admission?: Yes Plan: We will maintain on Cardizem CD therapy. I discussed case with Dr Soriano, chief dog license inspector, [employer] adf consultant during my bedside evaluation (6) Pulmonary hypertension Is this a current diagnosis for this admission?: Yes Plan: His 04/20/2018 complete echocardiogram did revealed moderate to severe pulmonary hypertension. His LVEF was normal. Maintain on supplemental oxygen. - Time Time Spent with patient: 25-34 minutes Medications reviewed and adjusted accordingly: Yes Anticipated discharge: Home with Homehealth Within: Other - Inpatient Certification Based on my medical assessment, after consideration of the patient's comorbidities, presenting symptoms, or acuity I expect that the services needed warrant INPATIENT care.: Yes I certify that my determination is in accordance with my understanding of Medicare's requirements for reasonable and necessary INPATIENT services [42 CFR 412.3e].: Yes Medical Necessity: Need Close Monitoring Due to Risk of Patient Decompensation, Need For IV Fluids, Need For Continuous Telemetry Monitoring, Need for Nebulizer Therapy and Monitoring of Response, Risk of Complication if Not Cared For in Hospital Post Hospital Care: D/C System Sales Consultant Documentation - Plan Summary Plan Summary: See covering attending physician orders.
[2018-06-12] MEDS: DILTIAZEM HCL 120 MG CAP.SR.24H PO SCH ×2 (12:21→21:06)
[2018-06-12] MEDS ORDERED: NORMAL SALINE 250 ML IV PRN (14:51)
--- NOTE | 2018-06-12 16:53 | EKG REPORT ---
SEVERITY:- ABNORMAL ECG - SINUS TACHYCARDIA RBBB AND LAFB : Confirmed by: Shandra Salgado MD 12-Jun-2018 16:52:26
[2018-06-12] MEDS: POLYETHYLENE GLYCOL 3350 POWDER 17 GM/1 PACKET PO PRN (17:21)
[2018-06-13] MEDS: HYDROMORPHONE HCL INJ/PF 2 MG/ML AMPULE IV PRN ×7 (00:13→22:34)
--- NOTE | 2018-06-13 08:01 | PDOC PROGRESS REPORT ---
Subjective Progress Note for:: 06/13/18 Subjective:: Pt doing well, but plt ct still 22K, anticoagulation is held Reason For Visit: BILATERAL PULMONARY EMBOLISM,ADENOCARCINOMA Physical Exam Vital Signs: Temp Pulse Resp BP Pulse Ox 98.2 F 96 20 131/52 H 93 06/13/18 03:34 06/13/18 03:34 06/13/18 03:34 06/13/18 03:34 06/13/18 03:34 Intake & Output 06/12/18 06/13/18 06/14/18 06:59 06:59 06:59 Intake Total 1581 708 Output Total 1800 750 Balance -219 -42 Weight 95 kg 96.3 kg General appearance: PRESENT: no acute distress, well-developed, well-nourished Head exam: PRESENT: atraumatic, normocephalic Eye exam: PRESENT: conjunctiva pink, EOMI, PERRLA. ABSENT: scleral icterus Ear exam: PRESENT: normal external ear exam Mouth exam: PRESENT: moist, tongue midline Neck exam: ABSENT: carotid bruit, JVD, lymphadenopathy, thyromegaly Respiratory exam: PRESENT: clear to auscultation jim. ABSENT: rales, rhonchi, wheezes Cardiovascular exam: PRESENT: RRR. ABSENT: diastolic murmur, rubs, systolic murmur Pulses: PRESENT: normal dorsalis pedis pul Vascular exam: PRESENT: normal capillary refill GI/Abdominal exam: PRESENT: normal bowel sounds, soft. ABSENT: distended, guarding, mass, organolmegaly, rebound, tenderness Rectal exam: PRESENT: deferred Extremities exam: PRESENT: full ROM. ABSENT: calf tenderness, clubbing, pedal edema Neurological exam: PRESENT: alert, awake, oriented to person, oriented to place , oriented to time, oriented to situation, CN II-XII grossly intact. ABSENT: motor sensory deficit Psychiatric exam: PRESENT: appropriate affect, normal mood. ABSENT: homicidal ideation, suicidal ideation Skin exam: PRESENT: dry, intact, warm. ABSENT: cyanosis, rash Results Laboratory Results: 06/12/18 04:41 06/12/18 04:41 06/11/18 13:45 Blood Type O POSITIVE Antibody Screen NEGATIVE 06/07/18 08:50 Blood Blood Culture - Final NO GROWTH IN 5 DAYS 06/07/18 06/07/18 06/07/18 02:52 02:52 02:52 Creatine Kinase < 20 L CK-MB (CK-2) 0.44 Troponin I 0.129 NT-Pro-B Natriuret Pep 1190 H 06/07/18 06/07/18 06/07/18 08:50 08:50 15:00 Creatine Kinase < 20 L < 20 L CK-MB (CK-2) 0.40 Troponin I 0.109 NT-Pro-B Natriuret Pep 06/07/18 15:00 Creatine Kinase CK-MB (CK-2) 0.39 Troponin I 0.094 NT-Pro-B Natriuret Pep Impressions: Chest X-Ray 06/06/18 19:51 IMPRESSION: Chronic lung changes. Chest/Abdomen CTA 06/06/18 19:58 IMPRESSION: Positive for acute PE. The above critical findings were discussed with and acknowledged by Dr. Croft at 11:20 PM on 06/06/2018. Findings of metastatic disease with increased interstitial thickening along the lingula and left lower lobe, which may represent disease progression or a superimposed pneumonia. TECHNICAL DOCUMENTATION: Quality ID # 436: Final reports with documentation of one or more dose reduction techniques (e.g., Automated exposure control, adjustment of the mA and/or kV according to patient size, use of iterative reconstruction technique) 2010 [employer]- All Rights Reserved Esophagus X-Ray 06/10/18 00:00 IMPRESSION: PROGRESSION OF THE DISTAL ESOPHAGEAL NARROWING WHICH NOW STARTS APPROXIMATELY 9 TO 10 CM ABOVE THE GE JUNCTION. 12 MM BARIUM TABLET DOES PERSIST IN THIS AREA THROUGHOUT THE PROCEDURE. SMALL HIATAL HERNIA AND GASTROESOPHAGEAL REFLUX IS AGAIN SEEN. Assessment & Plan - Diagnosis (1) Acute pulmonary embolism Qualifiers: Pulmonary embolism type: other Acute cor pulmonale presence: without acute cor pulmonale Qualified Code(s): I26.99 - Other pulmonary embolism without acute cor pulmonale Is this a current diagnosis for this admission?: Yes Plan: Holding anticoagulation, need to hold until plt ct gets close to 50 or better (2) Lung cancer Qualifiers: Laterality: right Lung location: upper lobe of lung Qualified Code(s): C34.11 - Malignant neoplasm of upper lobe, right bronchus or lung Is this a current diagnosis for this admission?: Yes Plan: Pancytopenia 2nd to recent chemo, pt doing ok (3) Pancytopenia due to antineoplastic chemotherapy Is this a current diagnosis for this admission?: Yes Plan: Should improve in next few days, continue to watch (4) Anemia due to antineoplastic chemotherapy Is this a current diagnosis for this admission?: Yes Plan: s/p transfusion, will need to start EPO as outpt
[2018-06-13] MEDS: SENNOSIDES/DOCUSATE 8.6-50 MG 1 EACH TABLET PO SCH ×2 (09:56→17:52)
[2018-06-13] MEDS: NYSTATIN/DEXAMETH/DIPHEN SUSP 120 ML PO SCH ×4 (09:57→22:35)
[2018-06-13] MEDS: DILTIAZEM HCL 120 MG CAP.SR.24H PO SCH (09:57)
[2018-06-13 10:17] LABS: HEMATOCRIT 29.8 % (37.9-51.0); HEMOGLOBIN 10.5 g/dL (13.5-17.0); MEAN CORPUSCULAR HEMOGLOBIN 30.4 pg (27.0-33.4); MEAN CORPUSCULAR HGB CONC 35.1 g/dL (32.0-36.0); MEAN CORPUSCULAR VOLUME 87 fl (80-97); RED BLOOD COUNT 3.44 10^6/uL (4.35-5.55); RED CELL DISTRIBUTION WIDTH 16.4 % (11.5-14.0)
[2018-06-13 10:39] LABS: PLATELET COUNT 52 10^3/uL (150-450)
[2018-06-13 10:44] LABS: ABSOLUTE LYMPHOCYTES# (MANUAL) 3.3 10^3/uL (0.5-4.7); ABSOLUTE MONOCYTES # (MANUAL) 0.2 10^3/uL (0.1-1.4); ABSOLUTE NEUTROPHILS# (MANUAL) 1.3 10^3/uL (1.7-8.2); BASOPHILS % (MANUAL) 0 % (0-2); EOSINOPHILS % (MANUAL) 5 % (0-6); LYMPHOCYTES % (MANUAL) 64 % (13-45); MONOCYTES % (MANUAL) 4 % (3-13); OVALOCYTES SLIGHT; PLATELET COMMENT DECREASED; POIKILOCYTOSIS SLIGHT; SEGMENTED NEUTROPHILS % (MAN) 25 % (42-78); TOTAL CELLS COUNTED 100
[2018-06-13 10:45] LABS: HYPERSEGMENTED NEUTROPHILS PRESENT
[2018-06-13] MEDS: DILTIAZEM HCL 180 MG CAPSULE.CR PO SCH ×2 (14:23→22:35)
[2018-06-13] MEDS: MAG HYDROX/AL HYDROX/SIMETH SUSP 30 ML UDCUP PO PRN (14:35)
[2018-06-13] MEDS: LIDOCAINE 2% VISCOUS SOLN 20 ML UDCUP PO PRN (14:36)
[2018-06-13 17:21] LABS: PATH REVIEW PATHOLOGIST REVIEWED
[2018-06-13 17:21] LABS: PATH REVIEW PATHOLOGIST REVIEWED
[2018-06-13] MEDS: APIXABAN 5 MG TABLET PO SCH (17:52)
[2018-06-13] MEDS: CLOTRIMAZOLE/BETAMETHASONE DIP CREAM 15 GM TOP SCH (18:18)
[2018-06-13] MEDS: CLINDAMYCIN HCL 150 MG CAPSULE PO SCH (18:18)
--- NOTE | 2018-06-13 21:55 | PDOC PROGRESS REPORT ---
Subjective Progress Note for:: 06/13/18 Subjective:: He complained of pain of the left leg on inspection there is redness of the left leg, the differential diagnosis includes cellulitis, ecchymosis, dermatitis , vasculitis. He has severe pancytopenia, the anticoagulant is on hold Reason For Visit: BILATERAL PULMONARY EMBOLISM,ADENOCARCINOMA Physical Exam Vital Signs: Temp Pulse Resp BP Pulse Ox 99.1 F 95 16 150/69 H 99 06/13/18 19:58 06/13/18 19:58 06/13/18 19:58 06/13/18 19:58 06/13/18 19:58 Intake & Output 06/12/18 06/13/18 06/14/18 06:59 06:59 06:59 Intake Total 5538 762 1649 Output Total 1800 750 Balance -219 -42 1260 Weight 95 kg 96.3 kg General appearance: PRESENT: no acute distress Eye exam: PRESENT: PERRLA Respiratory exam: PRESENT: clear to auscultation jim Cardiovascular exam: PRESENT: +S1, +S2 GI/Abdominal exam: PRESENT: soft Neurological exam: PRESENT: alert Results Laboratory Results: 06/13/18 09:50 06/12/18 04:41 06/13/18 09:50 WBC 5.0 RBC 3.44 L Hgb 10.5 L Hct 29.8 L MCV 87 MCH 30.4 MCHC 35.1 RDW 16.4 H Plt Count 52 L D Seg Neutrophils % Not Reportable Lymphocytes % Not Reportable Monocytes % Not Reportable Eosinophils % Not Reportable Basophils % Not Reportable Absolute Neutrophils Not Reportable Absolute Lymphocytes Not Reportable Absolute Monocytes Not Reportable Absolute Eosinophils Not Reportable Absolute Basophils Not Reportable 06/07/18 06/07/18 06/07/18 02:52 02:52 02:52 Creatine Kinase < 20 L CK-MB (CK-2) 0.44 Troponin I 0.129 NT-Pro-B Natriuret Pep 1190 H 06/07/18 06/07/18 06/07/18 08:50 08:50 15:00 Creatine Kinase < 20 L < 20 L CK-MB (CK-2) 0.40 Troponin I 0.109 NT-Pro-B Natriuret Pep 06/07/18 15:00 Creatine Kinase CK-MB (CK-2) 0.39 Troponin I 0.094 NT-Pro-B Natriuret Pep Impressions: Chest X-Ray 06/06/18 19:51 IMPRESSION: Chronic lung changes. Chest/Abdomen CTA 06/06/18 19:58 IMPRESSION: Positive for acute PE. The above critical findings were discussed with and acknowledged by Dr. Croft at 11:20 PM on 06/06/2018. Findings of metastatic disease with increased interstitial thickening along the lingula and left lower lobe, which may represent disease progression or a superimposed pneumonia. TECHNICAL DOCUMENTATION: Quality ID # 436: Final reports with documentation of one or more dose reduction techniques (e.g., Automated exposure control, adjustment of the mA and/or kV according to patient size, use of iterative reconstruction technique) 2010 [employer]- All Rights Reserved Esophagus X-Ray 06/10/18 00:00 IMPRESSION: PROGRESSION OF THE DISTAL ESOPHAGEAL NARROWING WHICH NOW STARTS APPROXIMATELY 9 TO 10 CM ABOVE THE GE JUNCTION. 12 MM BARIUM TABLET DOES PERSIST IN THIS AREA THROUGHOUT THE PROCEDURE. SMALL HIATAL HERNIA AND GASTROESOPHAGEAL REFLUX IS AGAIN SEEN. 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 Is this a current diagnosis for this admission?: Yes (7) Esophageal stricture Is this a current diagnosis for this admission?: Yes (8) Anemia Qualifiers: Anemia type: other cause Other causes of anemia: antineoplastic chemotherapy Qualified Code(s): D64.81 - Anemia due to antineoplastic chemotherapy; T45.1X5A - Adverse effect of antineoplastic and immunosuppressive drugs, initial encounter; T45.1X5A - Adverse effect of antineoplastic and immunosuppressive drugs, initial encounter Is this a current diagnosis for this admission?: Yes (9) Pancytopenia Is this a current diagnosis for this admission?: Yes (10) Cellulitis, leg Qualifiers: Laterality: left Qualified Code(s): L03.116 - Cellulitis of left lower limb Is this a current diagnosis for this admission?: Yes Plan: Start clindamycin
--- NOTE | 2018-06-13 22:06 | Progress Note ---
Provider Note Provider Note: CARDIOLOGY PROGRESS NOTE for 06/13/2018. OBJECTIVE. Patient still having some frequent APCs, but no recurrence of SVT. There is no chest pain. The patient's shortness of breath is very minimal. There is no PND orthopnea. There is no chest pains. There is no hemoptysis. There is no leg edema. There is no ventricular arrhythmias seen. There is no TIA CVA symptoms. The platelets have come up, and there is no bleeding from the low platelets. PHYSICAL EXAMINATION: The patient is mildly obese, well-groomed. He is in no acute distress. Selected Entries 06/13/18 11:16 Temperature 98.1 F Temperature Oral Source Pulse Rate 94 Respiratory 20 Rate Blood Pressure 123/62 Blood Pressure 82 Mean BP Location Left Arm BP Position Supine O2 Sat by Pulse 97 Oximetry Oxygen Flow 2.00 Rate Oxygen Delivery Nasal Cannula Method HEAD: Is atraumatic normocephalic. Equal round regular reactive to light accommodation. Ocular movements are normal. There is mild conjunctival pallor. There is no scleral icterus. EARS: Tympanic membranes are intact external auditory canals are clear. NOSE: Mucous membranes of the nose are dry. There is no inflammation of the nasal mucous membrane. At present there is no bleeding from the nose. There is no nasal polyps. MOUTH: There is no evidence of mouth are moist tongue is moist. Is no bleeding from the gums. There is no ulcers in the mouth or tongue. THROAT: There is no redness of the oropharynx there is no exudates. SKIN: There is no petechia or ecchymosis. There are no skin rashes or skin lesions. NECK: Is supple. There is no JVD. Carotids are equal there is no bruit. There is no lymphadenopathy. There is no goiter. Trachea central. LUNGS: There is diminished air entry prolonged expiration with scattered rhonchi bilaterally. There is no rales of CHF. At present there is no wheezing. There is no chest wall tenderness. HEART: S1-S2 is heard there is no S3 gallop there is no S4 gallop. S1 is of normal intensity. There is systolic murmur left sternal border and apex there is no rub. ABDOMEN: Is soft nontender there is no hepatosplenomegaly. There is no tender areas of masses. Bowel sounds well heard. EXTREMITIES: Femorals are diminished. There is no femoral bruits. There is no pedal edema. There is leg pulses are diminished. There is no DVT or cellulitis. There is no sinus or clubbing. There is no calf tenderness. SUPER[employer]: The patient is conscious awake alert oriented x3 with no focal deficits. PSYCHIATRIC: The patient judgment and insight are intact his affect is normal. 06/13/18 09:50 WBC 5.0 Hgb 10.5 L Hct 29.8 L Plt Count 52 L D IMPRESSION/RECOMMENDATION: 1. Supraventricular tachycardiaparoxysmal. 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 At present the patient is stable and is back to his regular sinus rhythm. In view of this and in view of the patient's severe pulmonary hypertension ,would recommend increasing the patient's on Cardizem CD to 180 mg p.o. every 12 hours and increase as needed and tolerated by his heart rate and blood pressure. 2. Bilateral pulmonary emboli: At present anticoagulation held due to pancytopenia with significant thrombocytopenia. Note platelets are increasing. 3. Pancytopenia secondary to chemotherapy. 4. Recurrent carcinoma of the lung with metastasis. 5. Dysphagia: At present the patient states he has no further dysphagia. 6. COPD: Remains to be stable. Continue respiratory treatments as needed. 7. HYPERTENSION. Blood pressure under fair control. Cardizem CD should help the patient's heart rate and blood pressure. 8. Diabetes Mellitus: [id number]. Continue current treatment. Medications reviewed and medications adjusted. Medical decision making is of high complexity, in view of the need for increasing the patient's Cardizem. Discussed with the attending physician on the case. Note 40 minutes spent on this patient more than 50% time spent in direct patient care. We will follow with you
[2018-06-14] MEDS: NYSTATIN/DEXAMETH/DIPHEN SUSP 120 ML PO SCH ×4 (02:00→21:23)
[2018-06-14] MEDS: CLINDAMYCIN HCL 150 MG CAPSULE PO SCH ×3 (02:00→21:24)
[2018-06-14] MEDS: HYDROMORPHONE HCL INJ/PF 2 MG/ML AMPULE IV PRN ×6 (04:01→23:38)
[2018-06-14 08:53] LABS: ABSOLUTE EOSINOPHILS # (AUTO) 0.2 10^3/uL (0.0-0.6); ABSOLUTE LYMPHOCYTES (AUTO) 1.1 10^3/uL (0.5-4.7); ABSOLUTE MONOCYTES (AUTO) 0.2 10^3/uL (0.1-1.4); ABSOLUTE NEUT (AUTO) 0.7 10^3/uL (1.7-8.2); BASOPHILS % (AUTO) 0.4 % (0-2); EOSINOPHILS % (AUTO) 9.7 % (0-6); HEMATOCRIT 25.2 % (37.9-51.0); HEMOGLOBIN 8.9 g/dL (13.5-17.0); LYMPHOCYTES % (AUTO) 49.8 % (13-45); MEAN CORPUSCULAR HEMOGLOBIN 30.6 pg (27.0-33.4); MEAN CORPUSCULAR HGB CONC 35.3 g/dL (32.0-36.0); MEAN CORPUSCULAR VOLUME 87 fl (80-97); MONOCYTES % (AUTO) 8.4 % (3-13); SEGMENTED NEUTROPHILS % (AUTO) 31.7 % (42-78); TOTAL CELLS COUNTED % (AUTO) 100 %
[2018-06-14 09:25] LABS: WHITE BLOOD COUNT 2.2 10^3/uL (4.0-10.5)
[2018-06-14 09:45] LABS: OVALOCYTES 1+; POIKILOCYTOSIS 1+; POLYCHROMASIA SLIGHT; ROULEAUX 1+; SCHISTOCYTES SLIGHT
[2018-06-14 09:46] LABS: PLATELET COMMENT DECREASED
[2018-06-14 09:47] LABS: PLATELET COUNT 24 10^3/uL (150-450)
[2018-06-14] MEDS: DILTIAZEM HCL 180 MG CAPSULE.CR PO SCH ×2 (10:16→21:24)
[2018-06-14] MEDS: SENNOSIDES/DOCUSATE 8.6-50 MG 1 EACH TABLET PO SCH ×2 (10:16→17:49)
[2018-06-14] MEDS: APIXABAN 5 MG TABLET PO SCH ×2 (10:16→10:29)
[2018-06-14] MEDS: POLYETHYLENE GLYCOL 3350 POWDER 17 GM/1 PACKET PO PRN (10:17)
[2018-06-14] MEDS: CLOTRIMAZOLE/BETAMETHASONE DIP CREAM 15 GM TOP SCH ×2 (10:17→17:49)
[2018-06-14] MEDS: OXYCODONE HCL SR 10 MG TABLET PO SCH ×2 (10:49→21:30)
--- NOTE | 2018-06-14 11:24 | PDOC PROGRESS REPORT ---
Subjective Progress Note for:: 06/14/18 Subjective:: Pt still having a lot of CP. Plt ct improved to >50 yesterday so given eliquis. This am unfortunately dropped to 22 so held eliquis again today Reason For Visit: BILATERAL PULMONARY EMBOLISM,ADENOCARCINOMA Physical Exam Vital Signs: Temp Pulse Resp BP Pulse Ox 97.9 F 84 20 139/67 H 98 06/14/18 11:14 06/14/18 11:14 06/14/18 11:14 06/14/18 11:14 06/14/18 11:14 Intake & Output 06/13/18 06/14/18 06/15/18 06:59 06:59 06:59 Intake Total 708 1588 Output Total 750 125 Balance -42 1463 Weight 96.3 kg 92.1 kg General appearance: PRESENT: no acute distress, well-developed, well-nourished Head exam: PRESENT: atraumatic, normocephalic Eye exam: PRESENT: conjunctiva pink, EOMI, PERRLA. ABSENT: scleral icterus Ear exam: PRESENT: normal external ear exam Mouth exam: PRESENT: moist, tongue midline Neck exam: ABSENT: carotid bruit, JVD, lymphadenopathy, thyromegaly Respiratory exam: PRESENT: clear to auscultation jim. ABSENT: rales, rhonchi, wheezes Cardiovascular exam: PRESENT: RRR. ABSENT: diastolic murmur, rubs, systolic murmur Pulses: PRESENT: normal dorsalis pedis pul Vascular exam: PRESENT: normal capillary refill GI/Abdominal exam: PRESENT: normal bowel sounds, soft. ABSENT: distended, guarding, mass, organolmegaly, rebound, tenderness Rectal exam: PRESENT: deferred Extremities exam: PRESENT: full ROM. ABSENT: calf tenderness, clubbing, pedal edema Neurological exam: PRESENT: alert, awake, oriented to person, oriented to place , oriented to time, oriented to situation, CN II-XII grossly intact. ABSENT: motor sensory deficit Psychiatric exam: PRESENT: appropriate affect, normal mood. ABSENT: homicidal ideation, suicidal ideation Skin exam: PRESENT: dry, intact, warm. ABSENT: cyanosis, rash Results Laboratory Results: 06/14/18 08:42 06/12/18 04:41 06/14/18 08:42 WBC 2.2 L D RBC 2.90 L Hgb 8.9 L Hct 25.2 L MCV 87 MCH 30.6 MCHC 35.3 RDW 16.0 H Plt Count 24 L* Seg Neutrophils % 31.7 L Lymphocytes % 49.8 H Monocytes % 8.4 Eosinophils % 9.7 H Basophils % 0.4 Absolute Neutrophils 0.7 L Absolute Lymphocytes 1.1 Absolute Monocytes 0.2 Absolute Eosinophils 0.2 Absolute Basophils 0.0 06/07/18 06/07/18 06/07/18 02:52 02:52 02:52 Creatine Kinase < 20 L CK-MB (CK-2) 0.44 Troponin I 0.129 NT-Pro-B Natriuret Pep 1190 H 06/07/18 06/07/18 06/07/18 08:50 08:50 15:00 Creatine Kinase < 20 L < 20 L CK-MB (CK-2) 0.40 Troponin I 0.109 NT-Pro-B Natriuret Pep 06/07/18 15:00 Creatine Kinase CK-MB (CK-2) 0.39 Troponin I 0.094 NT-Pro-B Natriuret Pep Impressions: Chest X-Ray 06/06/18 19:51 IMPRESSION: Chronic lung changes. Chest/Abdomen CTA 06/06/18 19:58 IMPRESSION: Positive for acute PE. The above critical findings were discussed with and acknowledged by Dr. Croft at 11:20 PM on 06/06/2018. Findings of metastatic disease with increased interstitial thickening along the lingula and left lower lobe, which may represent disease progression or a superimposed pneumonia. TECHNICAL DOCUMENTATION: Quality ID # 436: Final reports with documentation of one or more dose reduction techniques (e.g., Automated exposure control, adjustment of the mA and/or kV according to patient size, use of iterative reconstruction technique) 2010 [employer]- All Rights Reserved Esophagus X-Ray 06/10/18 00:00 IMPRESSION: PROGRESSION OF THE DISTAL ESOPHAGEAL NARROWING WHICH NOW STARTS APPROXIMATELY 9 TO 10 CM ABOVE THE GE JUNCTION. 12 MM BARIUM TABLET DOES PERSIST IN THIS AREA THROUGHOUT THE PROCEDURE. SMALL HIATAL HERNIA AND GASTROESOPHAGEAL REFLUX IS AGAIN SEEN. Assessment & Plan - Diagnosis (1) Acute pulmonary embolism Qualifiers: Pulmonary embolism type: other Acute cor pulmonale presence: without acute cor pulmonale Qualified Code(s): I26.99 - Other pulmonary embolism without acute cor pulmonale Is this a current diagnosis for this admission?: Yes Plan: Will need to hold eliquis and watch pt (2) Lung cancer Qualifiers: Laterality: right Lung location: upper lobe of lung Qualified Code(s): C34.11 - Malignant neoplasm of upper lobe, right bronchus or lung Is this a current diagnosis for this admission?: Yes Plan: Con't watching counts, unfortunately noted nadired yet, should begin improving by day 14 from chemo which is end of week (3) Pancytopenia due to antineoplastic chemotherapy Is this a current diagnosis for this admission?: Yes Plan: Will prepare for another plt transfusion today (4) Anemia due to antineoplastic chemotherapy Is this a current diagnosis for this admission?: Yes Plan: hb dropped 2nd to chemo, tx if <7. - Time Time Spent with patient: 35 or more minutes Disposition: need to watch, will not be able d/c home yet as counts not stabilized - Inpatient Certification Based on my medical assessment, after consideration of the patient's comorbidities, presenting symptoms, or acuity I expect that the services needed warrant INPATIENT care.: Yes I certify that my determination is in accordance with my understanding of Medicare's requirements for reasonable and necessary INPATIENT services [42 CFR 412.3e].: Yes Medical Necessity: Risk of Complication if Not Cared For in Hospital
[2018-06-14] MEDS: NORMAL SALINE 1000 ML 1,000 ML IV PRN (12:02)
[2018-06-14 19:08] LABS: PATH REVIEW PATHOLOGIST REVIEWED
--- NOTE | 2018-06-14 21:18 | PDOC PROGRESS REPORT ---
Subjective Progress Note for:: 06/14/18 Subjective:: Patient was seen by the bedside he has pancytopenia, he was transfused with platelet Reason For Visit: BILATERAL PULMONARY EMBOLISM,ADENOCARCINOMA Physical Exam Vital Signs: Temp Pulse Resp BP Pulse Ox 98.3 F 84 18 129/72 H 93 06/14/18 19:39 06/14/18 19:39 06/14/18 19:39 06/14/18 19:39 06/14/18 19:39 Intake & Output 06/13/18 06/14/18 06/15/18 06:59 06:59 06:59 Intake Total 708 1588 986 Output Total 750 125 100 Balance -42 1463 886 Weight 96.3 kg 92.1 kg 92.1 kg General appearance: PRESENT: no acute distress Eye exam: PRESENT: PERRLA Respiratory exam: PRESENT: rhonchi Cardiovascular exam: PRESENT: +S1, +S2 GI/Abdominal exam: PRESENT: soft Neurological exam: PRESENT: alert, CN II-XII grossly intact Results Laboratory Results: 06/14/18 08:42 06/12/18 04:41 06/14/18 06/14/18 08:42 12:29 WBC 2.2 L D RBC 2.90 L Hgb 8.9 L Hct 25.2 L MCV 87 MCH 30.6 MCHC 35.3 RDW 16.0 H Plt Count 24 L* Seg Neutrophils % 31.7 L Lymphocytes % 49.8 H Monocytes % 8.4 Eosinophils % 9.7 H Basophils % 0.4 Absolute Neutrophils 0.7 L Absolute Lymphocytes 1.1 Absolute Monocytes 0.2 Absolute Eosinophils 0.2 Absolute Basophils 0.0 Blood Type O POSITIVE Antibody Screen NEGATIVE 06/07/18 06/07/18 06/07/18 02:52 02:52 02:52 Creatine Kinase < 20 L CK-MB (CK-2) 0.44 Troponin I 0.129 NT-Pro-B Natriuret Pep 1190 H 06/07/18 06/07/18 06/07/18 08:50 08:50 15:00 Creatine Kinase < 20 L < 20 L CK-MB (CK-2) 0.40 Troponin I 0.109 NT-Pro-B Natriuret Pep 06/07/18 15:00 Creatine Kinase CK-MB (CK-2) 0.39 Troponin I 0.094 NT-Pro-B Natriuret Pep Impressions: Chest X-Ray 06/06/18 19:51 IMPRESSION: Chronic lung changes. Chest/Abdomen CTA 06/06/18 19:58 IMPRESSION: Positive for acute PE. The above critical findings were discussed with and acknowledged by Dr. Croft at 11:20 PM on 06/06/2018. Findings of metastatic disease with increased interstitial thickening along the lingula and left lower lobe, which may represent disease progression or a superimposed pneumonia. TECHNICAL DOCUMENTATION: Quality ID # 436: Final reports with documentation of one or more dose reduction techniques (e.g., Automated exposure control, adjustment of the mA and/or kV according to patient size, use of iterative reconstruction technique) 2010 [employer]- All Rights Reserved Esophagus X-Ray 06/10/18 00:00 IMPRESSION: PROGRESSION OF THE DISTAL ESOPHAGEAL NARROWING WHICH NOW STARTS APPROXIMATELY 9 TO 10 CM ABOVE THE GE JUNCTION. 12 MM BARIUM TABLET DOES PERSIST IN THIS AREA THROUGHOUT THE PROCEDURE. SMALL HIATAL HERNIA AND GASTROESOPHAGEAL REFLUX IS AGAIN SEEN. 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 Is this a current diagnosis for this admission?: Yes (7) Esophageal stricture Is this a current diagnosis for this admission?: Yes (8) Anemia Qualifiers: Anemia type: other cause Other causes of anemia: antineoplastic chemotherapy Qualified Code(s): D64.81 - Anemia due to antineoplastic chemotherapy; T45.1X5A - Adverse effect of antineoplastic and immunosuppressive drugs, initial encounter; T45.1X5A - Adverse effect of antineoplastic and immunosuppressive drugs, initial encounter Is this a current diagnosis for this admission?: Yes (9) Pancytopenia Is this a current diagnosis for this admission?: Yes (10) Cellulitis, leg Qualifiers: Laterality: left Qualified Code(s): L03.116 - Cellulitis of left lower limb Is this a current diagnosis for this admission?: Yes - Plan Summary Plan Summary: Continue treatment
[2018-06-14 22:36] LABS: ABSOLUTE EOSINOPHILS # (AUTO) 0.2 10^3/uL (0.0-0.6); ABSOLUTE LYMPHOCYTES (AUTO) 1.1 10^3/uL (0.5-4.7); ABSOLUTE MONOCYTES (AUTO) 0.2 10^3/uL (0.1-1.4); ABSOLUTE NEUT (AUTO) 0.6 10^3/uL (1.7-8.2); BASOPHILS % (AUTO) 0.2 % (0-2); EOSINOPHILS % (AUTO) 9.9 % (0-6); HEMATOCRIT 23.7 % (37.9-51.0); HEMOGLOBIN 8.3 g/dL (13.5-17.0); LYMPHOCYTES % (AUTO) 50.5 % (13-45); MEAN CORPUSCULAR HEMOGLOBIN 30.5 pg (27.0-33.4); MEAN CORPUSCULAR HGB CONC 35.2 g/dL (32.0-36.0); MEAN CORPUSCULAR VOLUME 87 fl (80-97); MONOCYTES % (AUTO) 11.7 % (3-13); RED BLOOD COUNT 2.73 10^6/uL (4.35-5.55); RED CELL DISTRIBUTION WIDTH 16.2 % (11.5-14.0); SEGMENTED NEUTROPHILS % (AUTO) 27.7 % (42-78); TOTAL CELLS COUNTED % (AUTO) 100 %; WHITE BLOOD COUNT 2.1 10^3/uL (4.0-10.5)
[2018-06-14 22:53] LABS: PLATELET COUNT 55 10^3/uL (150-450)
--- NOTE | 2018-06-14 23:46 | Progress Note ---
Provider Note Provider Note: CARDIOLOGY PROGRESS NOTE FOR 06/14/2018.BY Dr.LAKSHMI OMER.
[2018-06-15] MEDS: HYDROMORPHONE HCL INJ/PF 2 MG/ML AMPULE IV PRN ×5 (04:04→18:20)
[2018-06-15] MEDS: CLINDAMYCIN HCL 150 MG CAPSULE PO SCH ×3 (05:16→21:28)
--- NOTE | 2018-06-15 08:08 | PDOC PROGRESS REPORT ---
Subjective Progress Note for:: 06/15/18 Subjective:: Platelet count did improve to 50 after transfusion yesterday, awaiting labs from today. I gave him 1 dose of Eliquis this morning. Reason For Visit: BILATERAL PULMONARY EMBOLISM,ADENOCARCINOMA Physical Exam Vital Signs: Temp Pulse Resp BP Pulse Ox 98.7 F 88 20 131/62 H 92 06/15/18 03:52 06/15/18 03:52 06/15/18 03:52 06/15/18 03:52 06/15/18 03:52 Intake & Output 06/14/18 06/15/18 06/16/18 06:59 06:59 06:59 Intake Total 1588 986 Output Total 125 300 Balance 1463 686 Weight 92.1 kg 94.5 kg General appearance: PRESENT: no acute distress, well-developed, well-nourished Head exam: PRESENT: atraumatic, normocephalic Eye exam: PRESENT: conjunctiva pink, EOMI, PERRLA. ABSENT: scleral icterus Ear exam: PRESENT: normal external ear exam Mouth exam: PRESENT: moist, tongue midline Neck exam: ABSENT: carotid bruit, JVD, lymphadenopathy, thyromegaly Respiratory exam: PRESENT: clear to auscultation jim. ABSENT: rales, rhonchi, wheezes Cardiovascular exam: PRESENT: RRR. ABSENT: diastolic murmur, rubs, systolic murmur Pulses: PRESENT: normal dorsalis pedis pul Vascular exam: PRESENT: normal capillary refill GI/Abdominal exam: PRESENT: normal bowel sounds, soft. ABSENT: distended, guarding, mass, organolmegaly, rebound, tenderness Rectal exam: PRESENT: deferred Extremities exam: PRESENT: full ROM. ABSENT: calf tenderness, clubbing, pedal edema Neurological exam: PRESENT: alert, awake, oriented to person, oriented to place , oriented to time, oriented to situation, CN II-XII grossly intact. ABSENT: motor sensory deficit Psychiatric exam: PRESENT: appropriate affect, normal mood. ABSENT: homicidal ideation, suicidal ideation Skin exam: PRESENT: dry, intact, warm. ABSENT: cyanosis, rash Results Laboratory Results: 06/14/18 22:25 06/12/18 04:41 06/14/18 06/14/18 06/14/18 08:42 12:29 22:25 WBC 2.2 L D 2.1 L RBC 2.90 L 2.73 L Hgb 8.9 L 8.3 L Hct 25.2 L 23.7 L MCV 87 87 MCH 30.6 30.5 MCHC 35.3 35.2 RDW 16.0 H 16.2 H Plt Count 24 L* 55 L D Seg Neutrophils % 31.7 L 27.7 L Lymphocytes % 49.8 H 50.5 H Monocytes % 8.4 11.7 Eosinophils % 9.7 H 9.9 H Basophils % 0.4 0.2 Absolute Neutrophils 0.7 L 0.6 L Absolute Lymphocytes 1.1 1.1 Absolute Monocytes 0.2 0.2 Absolute Eosinophils 0.2 0.2 Absolute Basophils 0.0 0.0 Blood Type O POSITIVE Antibody Screen NEGATIVE 06/07/18 06/07/18 06/07/18 02:52 02:52 02:52 Creatine Kinase < 20 L CK-MB (CK-2) 0.44 Troponin I 0.129 NT-Pro-B Natriuret Pep 1190 H 06/07/18 06/07/18 06/07/18 08:50 08:50 15:00 Creatine Kinase < 20 L < 20 L CK-MB (CK-2) 0.40 Troponin I 0.109 NT-Pro-B Natriuret Pep 06/07/18 15:00 Creatine Kinase CK-MB (CK-2) 0.39 Troponin I 0.094 NT-Pro-B Natriuret Pep Impressions: Chest X-Ray 06/06/18 19:51 IMPRESSION: Chronic lung changes. Chest/Abdomen CTA 06/06/18 19:58 IMPRESSION: Positive for acute PE. The above critical findings were discussed with and acknowledged by Dr. Croft at 11:20 PM on 06/06/2018. Findings of metastatic disease with increased interstitial thickening along the lingula and left lower lobe, which may represent disease progression or a superimposed pneumonia. TECHNICAL DOCUMENTATION: Quality ID # 436: Final reports with documentation of one or more dose reduction techniques (e.g., Automated exposure control, adjustment of the mA and/or kV according to patient size, use of iterative reconstruction technique) 2010 [employer]- All Rights Reserved Esophagus X-Ray 06/10/18 00:00 IMPRESSION: PROGRESSION OF THE DISTAL ESOPHAGEAL NARROWING WHICH NOW STARTS APPROXIMATELY 9 TO 10 CM ABOVE THE GE JUNCTION. 12 MM BARIUM TABLET DOES PERSIST IN THIS AREA THROUGHOUT THE PROCEDURE. SMALL HIATAL HERNIA AND GASTROESOPHAGEAL REFLUX IS AGAIN SEEN. Assessment & Plan - Diagnosis (1) Acute pulmonary embolism Qualifiers: Pulmonary embolism type: other Acute cor pulmonale presence: without acute cor pulmonale Qualified Code(s): I26.99 - Other pulmonary embolism without acute cor pulmonale Is this a current diagnosis for this admission?: Yes Plan: Still awaiting platelet count, we need platelet count 2 remained stable above 50 to continue anticoagulation at a routine status. Until lately to stabilize, I think it would be safer for patient to be admitted. (2) Lung cancer Qualifiers: Laterality: right Lung location: upper lobe of lung Qualified Code(s): C34.11 - Malignant neoplasm of upper lobe, right bronchus or lung Is this a current diagnosis for this admission?: Yes Plan: Will certainly need to delay start of second cycle, we will need to do some dose reductions as well. (3) Pancytopenia due to antineoplastic chemotherapy Is this a current diagnosis for this admission?: Yes Plan: Continued, should improve in the next few days. (4) Anemia due to antineoplastic chemotherapy Is this a current diagnosis for this admission?: Yes Plan: Continue to monitor. - Time Time Spent with patient: 35 or more minutes - Inpatient Certification Based on my medical assessment, after consideration of the patient's comorbidities, presenting symptoms, or acuity I expect that the services needed warrant INPATIENT care.: Yes I certify that my determination is in accordance with my understanding of Medicare's requirements for reasonable and necessary INPATIENT services [42 CFR 412.3e].: Yes Medical Necessity: Risk of Complication if Not Cared For in Hospital
[2018-06-15 08:35] LABS: HEMATOCRIT 23.8 % (37.9-51.0); HEMOGLOBIN 8.5 g/dL (13.5-17.0); MEAN CORPUSCULAR HEMOGLOBIN 30.4 pg (27.0-33.4); MEAN CORPUSCULAR HGB CONC 35.5 g/dL (32.0-36.0); MEAN CORPUSCULAR VOLUME 86 fl (80-97); RED BLOOD COUNT 2.78 10^6/uL (4.35-5.55); WHITE BLOOD COUNT 2.1 10^3/uL (4.0-10.5)
[2018-06-15 08:55] LABS: ABSOLUTE LYMPHOCYTES# (MANUAL) 1.2 10^3/uL (0.5-4.7); ABSOLUTE MONOCYTES # (MANUAL) 0.1 10^3/uL (0.1-1.4); ABSOLUTE NEUTROPHILS# (MANUAL) 0.4 10^3/uL (1.7-8.2); BASOPHILS % (MANUAL) 0 % (0-2); EOSINOPHILS % (MANUAL) 13 % (0-6); LYMPHOCYTES % (MANUAL) 59 % (13-45); MONOCYTES % (MANUAL) 7 % (3-13); SEGMENTED NEUTROPHILS % (MAN) 21 % (42-78); TOTAL CELLS COUNTED 100
[2018-06-15 08:59] LABS: ANISOCYTOSIS 1+; OVALOCYTES SLIGHT; PLATELET COMMENT DECREASED; PLATELET COUNT 48 10^3/uL (150-450); POIKILOCYTOSIS SLIGHT
[2018-06-15] MEDS: CLOTRIMAZOLE/BETAMETHASONE DIP CREAM 15 GM TOP SCH ×2 (10:34→18:20)
[2018-06-15] MEDS: NYSTATIN/DEXAMETH/DIPHEN SUSP 120 ML PO SCH ×4 (10:34→21:28)
[2018-06-15] MEDS: APIXABAN 5 MG TABLET PO SCH ×2 (10:35→21:27)
[2018-06-15] MEDS: OXYCODONE HCL SR 10 MG TABLET PO SCH ×2 (10:35→21:25)
[2018-06-15] MEDS: SENNOSIDES/DOCUSATE 8.6-50 MG 1 EACH TABLET PO SCH ×2 (10:35→18:21)
[2018-06-15] MEDS: DILTIAZEM HCL 180 MG CAPSULE.CR PO SCH ×2 (10:35→21:27)
[2018-06-15] MEDS: MAG HYDROX/AL HYDROX/SIMETH SUSP 30 ML UDCUP PO PRN (11:38)
[2018-06-15] MEDS: LIDOCAINE 2% VISCOUS SOLN 20 ML UDCUP PO PRN (11:42)
[2018-06-15 12:35] LABS: ANION GAP 8 (5-19); BLOOD UREA NITROGEN 14 mg/dL (7-20); CALCIUM 9.8 mg/dL (8.4-10.2); CARBON DIOXIDE 26 mmol/L (22-30); CHLORIDE 102 mmol/L (98-107); GLUCOSE 98 mg/dL (75-110); POTASSIUM 4.3 mmol/L (3.6-5.0); SODIUM 135.5 mmol/L (137-145)
--- NOTE | 2018-06-15 21:54 | Progress Note ---
Provider Note Provider Note: CARDIOLOGY PROGRESS NOTES by Dr. Shandra Salgado for 06/15/2018. SUBJECTIVE: The patient denies any chest pain or discomfort. There is no shortness of breath there is no cough or hemoptysis. There is no pleuritic chest pain. There is no bleeding in spite of the patient's platelets being low. The patient continues to have pancytopenia. There is no anginal symptoms. There is no leg edema. There is no recurrence of SVT. There is no ventricular arrhythmias seen. There is no AV blocks or pauses. The patient is tolerating the Cardizem well. The patient has no further dysphagia with liquids or solids. It seems that her dysphagia has resolved. PHYSICAL EXAM: The patient is mildly obese. He is in no acute distress. He is well-groomed. Selected Entries 06/15/18 11:25 Temperature 98.0 F Temperature Oral Source Pulse Rate 91 Respiratory 22 H Rate Blood Pressure 133/50 H Blood Pressure 77 Mean BP Location Left Arm BP Position Supine O2 Sat by Pulse 93 Oximetry Oxygen Flow 2.00 Rate Oxygen Delivery Nasal Cannula Method HEAD: Is atraumatic normocephalic. Equal round regular reactive to light accommodation. Ocular movements are normal. There is mild conjunctival pallor. There is no scleral icterus. EARS: Tympanic membranes are intact external auditory canals are clear. NOSE: Mucous membranes of the nose are dry. There is no inflammation of the nasal mucous membrane. At present there is no bleeding from the nose. There is no nasal polyps. MOUTH: There is no evidence of mouth are moist tongue is moist. Is no bleeding from the gums. There is no ulcers in the mouth or tongue. THROAT: There is no redness of the oropharynx there is no exudates. SKIN: There is no petechia or ecchymosis. There are no skin rashes or skin lesions. NECK: Is supple. There is no JVD. Carotids are equal there is no bruit. There is no lymphadenopathy. There is no goiter. Trachea central. LUNGS: There is diminished air entry prolonged expiration with scattered rhonchi bilaterally. There is no rales of CHF. At present there is no wheezing. There is no chest wall tenderness. HEART: S1-S2 is heard there is no S3 gallop there is no S4 gallop. S1 is of normal intensity. There is systolic murmur left sternal border and apex there is no rub. ABDOMEN: Is soft nontender there is no hepatosplenomegaly. There is no tender areas of masses. Bowel sounds well heard. EXTREMITIES: Femorals are diminished. There is no femoral bruits. There is no pedal edema. There is leg pulses are diminished. There is no DVT or cellulitis. There is no sinus or clubbing. There is no calf tenderness. 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 PSYCHIATRIC: The patient judgment and insight are intact his affect is normal. 06/15/18 06/15/18 08:04 08:04 WBC 2.1 L Hgb 8.5 L Hct 23.8 L Plt Count 48 L Sodium 135.5 L Potassium 4.3 Chloride 102 Carbon Dioxide 26 BUN 14 Creatinine 1.17 Est GFR (Non-Af Amer) > 60 Glucose 98 Calcium 9.8 IMPRESSION/RECOMMENDATION: 1. 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 No recurrence on Cardizem. Continue Cardizem CD at current dosage at 180 mg p.o. every 12 hours. 2. BILATERAL PULMONARY EMBOLI: At present due to the patient's pancytopenia, especially with very low platelets, in spite of platelet transfusion anticoagulation is being held until the thrombocytopenia improves. 3. PANCYTOPENIA: Secondary to chemotherapy. Oncology on board. They are observing the patient's blood counts. 4. RECURRENT CARCINOMA OF the lung: With metastasis. Oncology on board. #5 DYSPHAGIA: Transient at present no complaints of dysphagia. 6. COPD: Remained stable at baseline. No acute exacerbation of COPD. 7 HYPERTENSION: Pressure is well controlled. Continue Cardizem CD and current medication. 8. DIABETES MELLITUS: Type II [id number]. Continue current treatment. Medications have been reviewed. Discuss management plans with other caregiving providers on the case. Medical decision making is of moderate to high complexity. 40 minutes spent on this patient, with more than 50% time spent in direct patient care. We will follow with you.
--- NOTE | 2018-06-15 22:25 | PDOC PROGRESS REPORT ---
Subjective Progress Note for:: 06/15/18 Subjective:: Patient was seen by the bedside, he was transfused with platelets yesterday, there is slight improvement in his platelet count Reason For Visit: BILATERAL PULMONARY EMBOLISM,ADENOCARCINOMA Physical Exam Vital Signs: Temp Pulse Resp BP Pulse Ox 97.7 F 104 H 16 134/63 H 91 L 06/15/18 19:32 06/15/18 20:55 06/15/18 19:32 06/15/18 19:32 06/15/18 19:32 Intake & Output 06/14/18 06/15/18 06/16/18 06:59 06:59 06:59 Intake Total 1588 986 799 Output Total 125 300 400 Balance 1463 686 399 Weight 92.1 kg 94.5 kg General appearance: PRESENT: no acute distress Eye exam: PRESENT: PERRLA Cardiovascular exam: PRESENT: +S1, +S2 GI/Abdominal exam: PRESENT: soft Neurological exam: PRESENT: alert Results Laboratory Results: 06/15/18 08:04 06/15/18 08:04 06/14/18 06/15/18 06/15/18 22:25 08:04 08:04 WBC 2.1 L 2.1 L RBC 2.73 L 2.78 L Hgb 8.3 L 8.5 L Hct 23.7 L 23.8 L MCV 87 86 MCH 30.5 30.4 MCHC 35.2 35.5 RDW 16.2 H 16.0 H Plt Count 55 L D 48 L Seg Neutrophils % 27.7 L Not Reportable Lymphocytes % 50.5 H Not Reportable Monocytes % 11.7 Not Reportable Eosinophils % 9.9 H Not Reportable Basophils % 0.2 Not Reportable Absolute Neutrophils 0.6 L Not Reportable Absolute Lymphocytes 1.1 Not Reportable Absolute Monocytes 0.2 Not Reportable Absolute Eosinophils 0.2 Not Reportable Absolute Basophils 0.0 Not Reportable Sodium 135.5 L Potassium 4.3 Chloride 102 Carbon Dioxide 26 Anion Gap 8 BUN 14 Creatinine 1.17 Est GFR ( Amer) > 60 Est GFR (Non-Af Amer) > 60 Glucose 98 Calcium 9.8 06/07/18 06/07/18 06/07/18 02:52 02:52 02:52 Creatine Kinase < 20 L CK-MB (CK-2) 0.44 Troponin I 0.129 NT-Pro-B Natriuret Pep 1190 H 06/07/18 06/07/18 06/07/18 08:50 08:50 15:00 Creatine Kinase < 20 L < 20 L CK-MB (CK-2) 0.40 Troponin I 0.109 NT-Pro-B Natriuret Pep 06/07/18 15:00 Creatine Kinase CK-MB (CK-2) 0.39 Troponin I 0.094 NT-Pro-B Natriuret Pep Impressions: Chest X-Ray 06/06/18 19:51 IMPRESSION: Chronic lung changes. Chest/Abdomen CTA 06/06/18 19:58 IMPRESSION: Positive for acute PE. The above critical findings were discussed with and acknowledged by Dr. Croft at 11:20 PM on 06/06/2018. Findings of metastatic disease with increased interstitial thickening along the lingula and left lower lobe, which may represent disease progression or a superimposed pneumonia. TECHNICAL DOCUMENTATION: Quality ID # 436: Final reports with documentation of one or more dose reduction techniques (e.g., Automated exposure control, adjustment of the mA and/or kV according to patient size, use of iterative reconstruction technique) 2010 [employer]- All Rights Reserved Esophagus X-Ray 06/10/18 00:00 IMPRESSION: PROGRESSION OF THE DISTAL ESOPHAGEAL NARROWING WHICH NOW STARTS APPROXIMATELY 9 TO 10 CM ABOVE THE GE JUNCTION. 12 MM BARIUM TABLET DOES PERSIST IN THIS AREA THROUGHOUT THE PROCEDURE. SMALL HIATAL HERNIA AND GASTROESOPHAGEAL REFLUX IS AGAIN SEEN. 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 Is this a current diagnosis for this admission?: Yes (7) Esophageal stricture Is this a current diagnosis for this admission?: Yes (8) Anemia Qualifiers: Anemia type: other cause Other causes of anemia: antineoplastic chemotherapy Qualified Code(s): D64.81 - Anemia due to antineoplastic chemotherapy; T45.1X5A - Adverse effect of antineoplastic and immunosuppressive drugs, initial encounter; T45.1X5A - Adverse effect of antineoplastic and immunosuppressive drugs, initial encounter Is this a current diagnosis for this admission?: Yes (9) Pancytopenia Is this a current diagnosis for this admission?: Yes (10) Cellulitis, leg Qualifiers: Laterality: left Qualified Code(s): L03.116 - Cellulitis of left lower limb Is this a current diagnosis for this admission?: Yes Plan: There is improvement in cellulitis of the leg
[2018-06-16] MEDS: HYDROMORPHONE HCL INJ/PF 2 MG/ML AMPULE IV PRN ×5 (00:22→19:03)
[2018-06-16] MEDS: CLINDAMYCIN HCL 150 MG CAPSULE PO SCH ×3 (05:22→21:20)
[2018-06-16 07:48] LABS: HEMATOCRIT 23.6 % (37.9-51.0); HEMOGLOBIN 8.6 g/dL (13.5-17.0); MEAN CORPUSCULAR HGB CONC 36.3 g/dL (32.0-36.0); MEAN CORPUSCULAR VOLUME 85 fl (80-97); RED BLOOD COUNT 2.76 10^6/uL (4.35-5.55); RED CELL DISTRIBUTION WIDTH 15.7 % (11.5-14.0)
--- NOTE | 2018-06-16 08:31 | PDOC PROGRESS REPORT ---
Subjective Progress Note for:: 06/16/18 Subjective:: Pt having pain this am, apparently refused oxycontin yesterday b/c he thought it wouldn't help and didnt understand that he could still receive IV pain meds for b/t pain. He agreed to take this am. Awaiting plt ct from today Reason For Visit: BILATERAL PULMONARY EMBOLISM,ADENOCARCINOMA Physical Exam Vital Signs: Temp Pulse Resp BP Pulse Ox 97.9 F 93 20 132/66 H 91 L 06/16/18 03:27 06/16/18 03:27 06/16/18 03:27 06/16/18 03:27 06/16/18 03:27 Intake & Output 06/15/18 06/16/18 06/17/18 06:59 06:59 06:59 Intake Total 986 799 Output Total 300 400 Balance 686 399 Weight 94.5 kg 94.5 kg General appearance: PRESENT: no acute distress, well-developed, well-nourished Head exam: PRESENT: atraumatic, normocephalic Eye exam: PRESENT: conjunctiva pink, EOMI, PERRLA. ABSENT: scleral icterus Ear exam: PRESENT: normal external ear exam Mouth exam: PRESENT: moist, tongue midline Neck exam: ABSENT: carotid bruit, JVD, lymphadenopathy, thyromegaly Respiratory exam: PRESENT: clear to auscultation jim. ABSENT: rales, rhonchi, wheezes Cardiovascular exam: PRESENT: RRR. ABSENT: diastolic murmur, rubs, systolic murmur Pulses: PRESENT: normal dorsalis pedis pul Vascular exam: PRESENT: normal capillary refill GI/Abdominal exam: PRESENT: normal bowel sounds, soft. ABSENT: distended, guarding, mass, organolmegaly, rebound, tenderness Rectal exam: PRESENT: deferred Extremities exam: PRESENT: full ROM. ABSENT: calf tenderness, clubbing, pedal edema Neurological exam: PRESENT: alert, awake, oriented to person, oriented to place , oriented to time, oriented to situation, CN II-XII grossly intact. ABSENT: motor sensory deficit Psychiatric exam: PRESENT: appropriate affect, normal mood. ABSENT: homicidal ideation, suicidal ideation Skin exam: PRESENT: dry, intact, warm. ABSENT: cyanosis, rash Results Laboratory Results: 06/15/18 08:04 06/15/18 06/15/18 08:04 08:04 WBC 2.1 L RBC 2.78 L Hgb 8.5 L Hct 23.8 L MCV 86 MCH 30.4 MCHC 35.5 RDW 16.0 H Plt Count 48 L Seg Neutrophils % Not Reportable Lymphocytes % Not Reportable Monocytes % Not Reportable Eosinophils % Not Reportable Basophils % Not Reportable Absolute Neutrophils Not Reportable Absolute Lymphocytes Not Reportable Absolute Monocytes Not Reportable Absolute Eosinophils Not Reportable Absolute Basophils Not Reportable Sodium 135.5 L Potassium 4.3 Chloride 102 Carbon Dioxide 26 Anion Gap 8 BUN 14 Creatinine 1.17 Est GFR ( Amer) > 60 Est GFR (Non-Af Amer) > 60 Glucose 98 Calcium 9.8 06/07/18 06/07/18 06/07/18 02:52 02:52 02:52 Creatine Kinase < 20 L CK-MB (CK-2) 0.44 Troponin I 0.129 NT-Pro-B Natriuret Pep 1190 H 06/07/18 06/07/18 06/07/18 08:50 08:50 15:00 Creatine Kinase < 20 L < 20 L CK-MB (CK-2) 0.40 Troponin I 0.109 NT-Pro-B Natriuret Pep 06/07/18 15:00 Creatine Kinase CK-MB (CK-2) 0.39 Troponin I 0.094 NT-Pro-B Natriuret Pep Impressions: Chest X-Ray 06/06/18 19:51 IMPRESSION: Chronic lung changes. Chest/Abdomen CTA 06/06/18 19:58 IMPRESSION: Positive for acute PE. The above critical findings were discussed with and acknowledged by Dr. Croft at 11:20 PM on 06/06/2018. Findings of metastatic disease with increased interstitial thickening along the lingula and left lower lobe, which may represent disease progression or a superimposed pneumonia. TECHNICAL DOCUMENTATION: Quality ID # 436: Final reports with documentation of one or more dose reduction techniques (e.g., Automated exposure control, adjustment of the mA and/or kV according to patient size, use of iterative reconstruction technique) 2010 [employer]- All Rights Reserved Esophagus X-Ray 06/10/18 00:00 IMPRESSION: PROGRESSION OF THE DISTAL ESOPHAGEAL NARROWING WHICH NOW STARTS APPROXIMATELY 9 TO 10 CM ABOVE THE GE JUNCTION. 12 MM BARIUM TABLET DOES PERSIST IN THIS AREA THROUGHOUT THE PROCEDURE. SMALL HIATAL HERNIA AND GASTROESOPHAGEAL REFLUX IS AGAIN SEEN. Assessment & Plan - Diagnosis (1) Acute pulmonary embolism Qualifiers: Pulmonary embolism type: other Acute cor pulmonale presence: without acute cor pulmonale Qualified Code(s): I26.99 - Other pulmonary embolism without acute cor pulmonale Is this a current diagnosis for this admission?: Yes Plan: Still awaiting plt ct, unfortunately he can't d/c home until we see stabilization of plt ct (2) Lung cancer Qualifiers: Laterality: right Lung location: upper lobe of lung Qualified Code(s): C34.11 - Malignant neoplasm of upper lobe, right bronchus or lung Is this a current diagnosis for this admission?: Yes Plan: Cont to monitor (3) Pancytopenia due to antineoplastic chemotherapy Is this a current diagnosis for this admission?: Yes Plan: Still awaiting count recovery, likely b/c of recent events, maybe b/c of immunRx prev and recent prolonged hospitalizations (4) Anemia due to antineoplastic chemotherapy Is this a current diagnosis for this admission?: Yes Plan: Hb stable for now but may drop. (5) Thrombocytopenia Is this a current diagnosis for this admission?: Yes (6) Thrombocytopenia Is this a current diagnosis for this admission?: Yes Plan: 2nd chemo, hold on transfusion unless back down to 20 or below - Time Time Spent with patient: 35 or more minutes - Inpatient Certification Based on my medical assessment, after consideration of the patient's comorbidities, presenting symptoms, or acuity I expect that the services needed warrant INPATIENT care.: Yes I certify that my determination is in accordance with my understanding of Medicare's requirements for reasonable and necessary INPATIENT services [42 CFR 412.3e].: Yes Medical Necessity: Risk of Complication if Not Cared For in Hospital
[2018-06-16 08:49] LABS: PLATELET COUNT 42 10^3/uL (150-450)
[2018-06-16 08:50] LABS: WHITE BLOOD COUNT 1.5 10^3/uL (4.0-10.5)
[2018-06-16 08:52] LABS: ABSOLUTE LYMPHOCYTES# (MANUAL) 0.6 10^3/uL (0.5-4.7); ABSOLUTE MONOCYTES # (MANUAL) 0.4 10^3/uL (0.1-1.4); ABSOLUTE NEUTROPHILS# (MANUAL) 0.5 10^3/uL (1.7-8.2); BASOPHILS % (MANUAL) 2 % (0-2); EOSINOPHILS % (MANUAL) 6 % (0-6); LYMPHOCYTES % (MANUAL) 36 % (13-45); MONOCYTES % (MANUAL) 24 % (3-13); SEGMENTED NEUTROPHILS % (MAN) 30 % (42-78); TOTAL CELLS COUNTED 50
[2018-06-16 08:55] LABS: ANISOCYTOSIS SLIGHT; OVALOCYTES SLIGHT; PLATELET COMMENT DECREASED; POIKILOCYTOSIS SLIGHT; TOXIC GRANULATION 1+; TOXIC VACUOLATION PRESENT
[2018-06-16] MEDS: SENNOSIDES/DOCUSATE 8.6-50 MG 1 EACH TABLET PO SCH ×2 (10:41→19:03)
[2018-06-16] MEDS: OXYCODONE HCL SR 10 MG TABLET PO SCH ×2 (10:41→21:19)
[2018-06-16] MEDS: DILTIAZEM HCL 180 MG CAPSULE.CR PO SCH ×2 (10:42→21:20)
[2018-06-16] MEDS: NYSTATIN/DEXAMETH/DIPHEN SUSP 120 ML PO SCH ×4 (10:44→21:20)
[2018-06-16] MEDS: CLOTRIMAZOLE/BETAMETHASONE DIP CREAM 15 GM TOP SCH ×2 (10:45→19:08)
[2018-06-16] MEDS: APIXABAN 5 MG TABLET PO SCH (19:02)
--- NOTE | 2018-06-16 19:47 | Progress Note ---
Provider Note Provider Note: CARDIOLOGY PROGRESS NOTE by Dr. Shandra Salgado on 06/16/2018. SUBJECTIVE: There is no recurrence of SVT or a wide-complex tachycardia. There are very rare APCs seen. The patient tolerating Cardizem well. His platelets are stable and is now 42,000. There is no bleeding complications due to thrombocytopenia. The patient denies any chest pain. There is no wheezing cough or sputum production. There is no pleuritic chest pain. There is no anginal symptoms. There is no PND orthopnea or leg edema. There is no dizziness near syncope or syncope. There is no TIA CVA symptoms. There is no recurrence of pulmonary embolism. PHYSICAL EXAMINATION: The patient is mildly obese. He is well-groomed. He is in no acute distress. Selected Entries 06/16/18 06/16/18 11:23 15:24 Temperature 99.2 F Temperature Oral Oral Source Pulse Rate 95 Respiratory 20 Rate Blood Pressure 136/74 H Blood Pressure 94 Mean BP Location Left Arm BP Position Supine O2 Sat by Pulse 97 Oximetry Oxygen Flow 2.50 Rate Oxygen Delivery Nasal Cannula Method HEAD: Is atraumatic normocephalic. Equal round regular reactive to light accommodation. Ocular movements are normal. There is mild conjunctival pallor. There is no scleral icterus. EARS: Tympanic membranes are intact external auditory canals are clear. NOSE: Mucous membranes of the nose are dry. There is no inflammation of the nasal mucous membrane. At present there is no bleeding from the nose. There is no nasal polyps. MOUTH: There is no evidence of mouth are moist tongue is moist. Is no bleeding from the gums. There is no ulcers in the mouth or tongue. THROAT: There is no redness of the oropharynx there is no exudates. SKIN: There is no petechia or ecchymosis. There are no skin rashes or skin lesions. NECK: Is supple. There is no JVD. Carotids are equal there is no bruit. There is no lymphadenopathy. There is no goiter. Trachea central. LUNGS: There is diminished air entry prolonged expiration with scattered rhonchi bilaterally. There is no rales of CHF. At present there is no wheezing. There is no chest wall tenderness. HEART: S1-S2 is heard there is no S3 gallop there is no S4 gallop. S1 is of normal intensity. There is systolic murmur left sternal border and apex there is no rub. ABDOMEN: Is soft nontender there is no hepatosplenomegaly. There is no tender areas of masses. Bowel sounds well heard. EXTREMITIES: Femorals are diminished. There is no femoral bruits. There is no pedal edema. There is leg pulses are diminished. There is no DVT or cellulitis. There is no sinus or clubbing. There is no calf tenderness. 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 PSYCHIATRIC: The patient judgment and insight are intact his affect is normal. 06/16/18 07:32 WBC 1.5 L* Hgb 8.6 L Hct 23.6 L Plt Count 42 L IMPRESSION/RECOMMENDATION: 1. 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 No recurrence on Cardizem. Continue Cardizem CD at current dosage at 180 mg p.o. every 12 hours. 2. BILATERAL PULMONARY EMBOLI: At present due to the patient's pancytopenia, especially with very low platelets, in spite of platelet transfusion anticoagulation is being held until the thrombocytopenia improves. 3. PANCYTOPENIA: Secondary to chemotherapy. Oncology on board. They are observing the patient's blood counts. 4. RECURRENT CARCINOMA OF the lung: With metastasis. Oncology on board. #5 DYSPHAGIA: Transient at present no complaints of dysphagia. 6. COPD: Remained stable at baseline. No acute exacerbation of COPD. 7 HYPERTENSION: Pressure is well controlled. Continue Cardizem CD and current medication. 8. DIABETES MELLITUS: Type II [id number]. Continue current treatment. Note medications have been reviewed. Will leave the starting of chronic anticoagulation with oncology. Note cardiac status is stable. Medical decision making is now cardiac barker of moderate complexity. The patient appears to be stable. Will sign off. Please call me if there should be any new or recurrent cardiac problems. Note 40 minutes spent on this patient with more than 50% of time spent in direct patient care. Will sign off the case. We will follow the patient as an outpatient, as desired by the patient and patient's . Mine and my office contact numbers were given to the patient. ADDENDUM PROGRESS NOTES on 06/18/2018: Dr. Chen call me and stated that the patient was desaturating with minimal ambulation. This is most likely due to the patient's pulmonary hypertension. I have called and the nurse/putting her daughter to start the patient on sildenafil 20 mg p.o. 3 times daily, to see if this will help the patient. Also note was made to the nurse to make sure the patient does not receive any nitrates in view of the patient getting sildenafil. This has been discussed with the patient also. Note that the patient was not physically examined by me on this day. [Lasted the right examined the patient on rounds was on 06/16/2018, which progress note is about.] . Thanking you
--- NOTE | 2018-06-16 21:35 | PDOC PROGRESS REPORT ---
Subjective Progress Note for:: 06/16/18 Subjective:: Patient was seen by the bedside, he remained pancytopenic Reason For Visit: BILATERAL PULMONARY EMBOLISM,ADENOCARCINOMA Physical Exam Vital Signs: Temp Pulse Resp BP Pulse Ox 98.3 F 82 20 146/65 H 96 06/16/18 19:38 06/16/18 20:12 06/16/18 19:38 06/16/18 19:38 06/16/18 19:38 Intake & Output 06/15/18 06/16/18 06/17/18 06:59 06:59 06:59 Intake Total 986 799 520 Output Total 300 400 0 Balance 686 399 520 Weight 94.5 kg 94.5 kg General appearance: PRESENT: no acute distress Respiratory exam: PRESENT: clear to auscultation jim Cardiovascular exam: PRESENT: +S1, +S2 GI/Abdominal exam: PRESENT: soft Neurological exam: PRESENT: alert Results Laboratory Results: 06/16/18 07:32 06/15/18 08:04 06/16/18 07:32 WBC 1.5 L* RBC 2.76 L Hgb 8.6 L Hct 23.6 L MCV 85 MCH 31.0 MCHC 36.3 H RDW 15.7 H Plt Count 42 L Seg Neutrophils % Not Reportable Lymphocytes % Not Reportable Monocytes % Not Reportable Eosinophils % Not Reportable Basophils % Not Reportable Absolute Neutrophils Not Reportable Absolute Lymphocytes Not Reportable Absolute Monocytes Not Reportable Absolute Eosinophils Not Reportable Absolute Basophils Not Reportable 06/07/18 06/07/18 06/07/18 02:52 02:52 02:52 Creatine Kinase < 20 L CK-MB (CK-2) 0.44 Troponin I 0.129 NT-Pro-B Natriuret Pep 1190 H 06/07/18 06/07/18 06/07/18 08:50 08:50 15:00 Creatine Kinase < 20 L < 20 L CK-MB (CK-2) 0.40 Troponin I 0.109 NT-Pro-B Natriuret Pep 06/07/18 15:00 Creatine Kinase CK-MB (CK-2) 0.39 Troponin I 0.094 NT-Pro-B Natriuret Pep Impressions: Chest X-Ray 06/06/18 19:51 IMPRESSION: Chronic lung changes. Chest/Abdomen CTA 06/06/18 19:58 IMPRESSION: Positive for acute PE. The above critical findings were discussed with and acknowledged by Dr. Croft at 11:20 PM on 06/06/2018. Findings of metastatic disease with increased interstitial thickening along the lingula and left lower lobe, which may represent disease progression or a superimposed pneumonia. TECHNICAL DOCUMENTATION: Quality ID # 436: Final reports with documentation of one or more dose reduction techniques (e.g., Automated exposure control, adjustment of the mA and/or kV according to patient size, use of iterative reconstruction technique) 2010 [employer]- All Rights Reserved Esophagus X-Ray 06/10/18 00:00 IMPRESSION: PROGRESSION OF THE DISTAL ESOPHAGEAL NARROWING WHICH NOW STARTS APPROXIMATELY 9 TO 10 CM ABOVE THE GE JUNCTION. 12 MM BARIUM TABLET DOES PERSIST IN THIS AREA THROUGHOUT THE PROCEDURE. SMALL HIATAL HERNIA AND GASTROESOPHAGEAL REFLUX IS AGAIN SEEN. 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 Is this a current diagnosis for this admission?: Yes (6) Esophageal stricture Is this a current diagnosis for this admission?: Yes (7) Anemia Qualifiers: Anemia type: other cause Other causes of anemia: antineoplastic chemotherapy Qualified Code(s): D64.81 - Anemia due to antineoplastic chemotherapy; T45.1X5A - Adverse effect of antineoplastic and immunosuppressive drugs, initial encounter; T45.1X5A - Adverse effect of antineoplastic and immunosuppressive drugs, initial encounter Is this a current diagnosis for this admission?: Yes (8) Pancytopenia Is this a current diagnosis for this admission?: Yes (9) Cellulitis, leg Qualifiers: Laterality: left Qualified Code(s): L03.116 - Cellulitis of left lower limb Is this a current diagnosis for this admission?: Yes - Plan Summary Plan Summary: Oncology following
[2018-06-17] MEDS: CLINDAMYCIN HCL 150 MG CAPSULE PO SCH ×3 (05:11→21:07)
[2018-06-17] MEDS: APIXABAN 5 MG TABLET PO SCH ×3 (05:11→21:08)
[2018-06-17 06:14] LABS: HEMATOCRIT 22.9 % (37.9-51.0); HEMOGLOBIN 8.1 g/dL (13.5-17.0); MEAN CORPUSCULAR HEMOGLOBIN 30.2 pg (27.0-33.4); MEAN CORPUSCULAR HGB CONC 35.3 g/dL (32.0-36.0); MEAN CORPUSCULAR VOLUME 86 fl (80-97); RED BLOOD COUNT 2.67 10^6/uL (4.35-5.55); RED CELL DISTRIBUTION WIDTH 15.8 % (11.5-14.0); WHITE BLOOD COUNT 1.7 10^3/uL (4.0-10.5)
[2018-06-17 06:17] LABS: PLATELET COUNT 53 10^3/uL (150-450)
[2018-06-17 06:24] LABS: ANION GAP 7 (5-19); BLOOD UREA NITROGEN 13 mg/dL (7-20); CALCIUM 9.6 mg/dL (8.4-10.2); CARBON DIOXIDE 27 mmol/L (22-30); CHLORIDE 104 mmol/L (98-107); GLUCOSE 114 mg/dL (75-110); POTASSIUM 4.1 mmol/L (3.6-5.0); SODIUM 137.6 mmol/L (137-145)
[2018-06-17 06:39] LABS: ABSOLUTE LYMPHOCYTES# (MANUAL) 0.9 10^3/uL (0.5-4.7); ABSOLUTE MONOCYTES # (MANUAL) 0.3 10^3/uL (0.1-1.4); ABSOLUTE NEUTROPHILS# (MANUAL) 0.2 10^3/uL (1.7-8.2); BAND NEUTROPHILS % (MANUAL) 1 % (3-5); BASOPHILS % (MANUAL) 0 % (0-2); EOSINOPHILS % (MANUAL) 11 % (0-6); LYMPHOCYTES % (MANUAL) 54 % (13-45); MONOCYTES % (MANUAL) 20 % (3-13); SEGMENTED NEUTROPHILS % (MAN) 13 % (42-78); TOTAL CELLS COUNTED 100
[2018-06-17 06:41] LABS: ANISOCYTOSIS 1+; PLATELET COMMENT DECREASED; TOXIC VACUOLATION PRESENT
[2018-06-17] MEDS: HYDROMORPHONE HCL INJ/PF 2 MG/ML AMPULE IV PRN ×5 (06:47→19:49)
--- NOTE | 2018-06-17 08:47 | PDOC PROGRESS REPORT ---
Subjective Progress Note for:: 06/17/18 Subjective:: Still w/ considerable pain, increasing oxycontin today, plt ct better but wt ct down, giving neupogen today Reason For Visit: BILATERAL PULMONARY EMBOLISM,ADENOCARCINOMA Physical Exam Vital Signs: Temp Pulse Resp BP Pulse Ox 99.6 F 100 18 150/72 H 93 06/17/18 03:43 06/17/18 03:43 06/17/18 03:43 06/17/18 03:43 06/17/18 03:43 Intake & Output 06/16/18 06/17/18 06/18/18 06:59 06:59 06:59 Intake Total 799 520 Output Total 400 0 Balance 399 520 Weight 94.5 kg 93.3 kg General appearance: PRESENT: no acute distress, well-developed, well-nourished Head exam: PRESENT: atraumatic, normocephalic Eye exam: PRESENT: conjunctiva pink, EOMI, PERRLA. ABSENT: scleral icterus Ear exam: PRESENT: normal external ear exam Mouth exam: PRESENT: moist, tongue midline Neck exam: ABSENT: carotid bruit, JVD, lymphadenopathy, thyromegaly Respiratory exam: PRESENT: clear to auscultation jim. ABSENT: rales, rhonchi, wheezes Cardiovascular exam: PRESENT: RRR. ABSENT: diastolic murmur, rubs, systolic murmur Pulses: PRESENT: normal dorsalis pedis pul Vascular exam: PRESENT: normal capillary refill GI/Abdominal exam: PRESENT: normal bowel sounds, soft. ABSENT: distended, guarding, mass, organolmegaly, rebound, tenderness Rectal exam: PRESENT: deferred Extremities exam: PRESENT: full ROM. ABSENT: calf tenderness, clubbing, pedal edema Neurological exam: PRESENT: alert, awake, oriented to person, oriented to place , oriented to time, oriented to situation, CN II-XII grossly intact. ABSENT: motor sensory deficit Psychiatric exam: PRESENT: appropriate affect, normal mood. ABSENT: homicidal ideation, suicidal ideation Skin exam: PRESENT: dry, intact, warm. ABSENT: cyanosis, rash Results Laboratory Results: 06/17/18 05:15 06/17/18 05:15 06/16/18 06/17/18 06/17/18 07:32 05:15 05:15 WBC 1.5 L* 1.7 L RBC 2.76 L 2.67 L Hgb 8.6 L 8.1 L Hct 23.6 L 22.9 L MCV 85 86 MCH 31.0 30.2 MCHC 36.3 H 35.3 RDW 15.7 H 15.8 H Plt Count 42 L 53 L Seg Neutrophils % Not Reportable Not Reportable Lymphocytes % Not Reportable Not Reportable Monocytes % Not Reportable Not Reportable Eosinophils % Not Reportable Not Reportable Basophils % Not Reportable Not Reportable Absolute Neutrophils Not Reportable Not Reportable Absolute Lymphocytes Not Reportable Not Reportable Absolute Monocytes Not Reportable Not Reportable Absolute Eosinophils Not Reportable Not Reportable Absolute Basophils Not Reportable Not Reportable Sodium 137.6 Potassium 4.1 Chloride 104 Carbon Dioxide 27 Anion Gap 7 BUN 13 Creatinine 1.10 Est GFR ( Amer) > 60 Est GFR (Non-Af Amer) > 60 Glucose 114 H Calcium 9.6 06/07/18 06/07/18 06/07/18 02:52 02:52 02:52 Creatine Kinase < 20 L CK-MB (CK-2) 0.44 Troponin I 0.129 NT-Pro-B Natriuret Pep 1190 H 06/07/18 06/07/18 06/07/18 08:50 08:50 15:00 Creatine Kinase < 20 L < 20 L CK-MB (CK-2) 0.40 Troponin I 0.109 NT-Pro-B Natriuret Pep 06/07/18 15:00 Creatine Kinase CK-MB (CK-2) 0.39 Troponin I 0.094 NT-Pro-B Natriuret Pep Impressions: Chest X-Ray 06/06/18 19:51 IMPRESSION: Chronic lung changes. Chest/Abdomen CTA 06/06/18 19:58 IMPRESSION: Positive for acute PE. The above critical findings were discussed with and acknowledged by Dr. Croft at 11:20 PM on 06/06/2018. Findings of metastatic disease with increased interstitial thickening along the lingula and left lower lobe, which may represent disease progression or a superimposed pneumonia. TECHNICAL DOCUMENTATION: Quality ID # 436: Final reports with documentation of one or more dose reduction techniques (e.g., Automated exposure control, adjustment of the mA and/or kV according to patient size, use of iterative reconstruction technique) 2010 [employer]- All Rights Reserved Esophagus X-Ray 06/10/18 00:00 IMPRESSION: PROGRESSION OF THE DISTAL ESOPHAGEAL NARROWING WHICH NOW STARTS APPROXIMATELY 9 TO 10 CM ABOVE THE GE JUNCTION. 12 MM BARIUM TABLET DOES PERSIST IN THIS AREA THROUGHOUT THE PROCEDURE. SMALL HIATAL HERNIA AND GASTROESOPHAGEAL REFLUX IS AGAIN SEEN. Assessment & Plan - Diagnosis (1) Acute pulmonary embolism Qualifiers: Pulmonary embolism type: other Acute cor pulmonale presence: without acute cor pulmonale Qualified Code(s): I26.99 - Other pulmonary embolism without acute cor pulmonale Is this a current diagnosis for this admission?: Yes Plan: Cont eliquis today since plt ct seems to be stabilizing (2) Lung cancer Qualifiers: Laterality: right Lung location: upper lobe of lung Qualified Code(s): C34.11 - Malignant neoplasm of upper lobe, right bronchus or lung Is this a current diagnosis for this admission?: Yes Plan: Further rx as outpt (3) Pancytopenia due to antineoplastic chemotherapy Is this a current diagnosis for this admission?: Yes Plan: will follow (4) Anemia due to antineoplastic chemotherapy Is this a current diagnosis for this admission?: Yes Plan: hb 8, tx under 7 (5) Thrombocytopenia Is this a current diagnosis for this admission?: Yes Plan: plt ct improved should cont to inc (6) Neutropenia associated with mucositis due to antineoplastic therapy Is this a current diagnosis for this admission?: Yes Plan: Give neupogen 480mcg daily until ANC >1000 (7) Pain, neoplasm-related Is this a current diagnosis for this admission?: Yes Plan: Inc oxycontin cont dilaudid for b/t pain - Time Time Spent with patient: 35 or more minutes
[2018-06-17] MEDS: FILGRASTIM INJ 480 MCG/1.6 ML VIAL SUBCUT SCH (10:13)
[2018-06-17] MEDS: DILTIAZEM HCL 180 MG CAPSULE.CR PO SCH ×2 (10:28→21:08)
[2018-06-17] MEDS: OXYCODONE HCL SR 40 MG TABLET PO SCH ×2 (10:28→21:13)
[2018-06-17] MEDS: SENNOSIDES/DOCUSATE 8.6-50 MG 1 EACH TABLET PO SCH ×2 (10:28→19:43)
[2018-06-17] MEDS: NYSTATIN/DEXAMETH/DIPHEN SUSP 120 ML PO SCH ×4 (10:30→21:09)
[2018-06-17] MEDS: CLOTRIMAZOLE/BETAMETHASONE DIP CREAM 15 GM TOP SCH ×2 (10:33→19:42)
[2018-06-17 11:23] LABS: PATH REVIEW PATHOLOGIST REVIEWED
[2018-06-17] MEDS ORDERED: HYDROMORPHONE HCL INJ/PF 2 MG/ML AMPULE IV PRN (12:30)
--- NOTE | 2018-06-17 20:08 | PDOC PROGRESS REPORT ---
Subjective Progress Note for:: 06/17/18 Subjective:: Patient seen by the bedside, he has pancytopenia due to chemotherapy with a background of pulmonary embolism, continue to monitor closely CBC Reason For Visit: BILATERAL PULMONARY EMBOLISM,ADENOCARCINOMA Physical Exam Vital Signs: Temp Pulse Resp BP Pulse Ox 100.0 F 114 H 16 140/67 H 91 L 06/17/18 16:14 06/17/18 16:14 06/17/18 16:14 06/17/18 16:14 06/17/18 16:14 Intake & Output 06/16/18 06/17/18 06/18/18 06:59 06:59 06:59 Intake Total 799 520 Output Total 400 0 Balance 399 520 Weight 94.5 kg 93.3 kg General appearance: PRESENT: no acute distress Eye exam: PRESENT: PERRLA Respiratory exam: PRESENT: rales Cardiovascular exam: PRESENT: +S1, +S2 GI/Abdominal exam: PRESENT: soft Neurological exam: PRESENT: alert Results Laboratory Results: 06/17/18 05:15 06/17/18 05:15 06/17/18 06/17/18 05:15 05:15 WBC 1.7 L RBC 2.67 L Hgb 8.1 L Hct 22.9 L MCV 86 MCH 30.2 MCHC 35.3 RDW 15.8 H Plt Count 53 L Seg Neutrophils % Not Reportable Lymphocytes % Not Reportable Monocytes % Not Reportable Eosinophils % Not Reportable Basophils % Not Reportable Absolute Neutrophils Not Reportable Absolute Lymphocytes Not Reportable Absolute Monocytes Not Reportable Absolute Eosinophils Not Reportable Absolute Basophils Not Reportable Sodium 137.6 Potassium 4.1 Chloride 104 Carbon Dioxide 27 Anion Gap 7 BUN 13 Creatinine 1.10 Est GFR ( Amer) > 60 Est GFR (Non-Af Amer) > 60 Glucose 114 H Calcium 9.6 06/07/18 06/07/18 06/07/18 02:52 02:52 02:52 Creatine Kinase < 20 L CK-MB (CK-2) 0.44 Troponin I 0.129 NT-Pro-B Natriuret Pep 1190 H 06/07/18 06/07/18 06/07/18 08:50 08:50 15:00 Creatine Kinase < 20 L < 20 L CK-MB (CK-2) 0.40 Troponin I 0.109 NT-Pro-B Natriuret Pep 06/07/18 15:00 Creatine Kinase CK-MB (CK-2) 0.39 Troponin I 0.094 NT-Pro-B Natriuret Pep Impressions: Chest X-Ray 06/06/18 19:51 IMPRESSION: Chronic lung changes. Chest/Abdomen CTA 06/06/18 19:58 IMPRESSION: Positive for acute PE. The above critical findings were discussed with and acknowledged by Dr. Croft at 11:20 PM on 06/06/2018. Findings of metastatic disease with increased interstitial thickening along the lingula and left lower lobe, which may represent disease progression or a superimposed pneumonia. TECHNICAL DOCUMENTATION: Quality ID # 436: Final reports with documentation of one or more dose reduction techniques (e.g., Automated exposure control, adjustment of the mA and/or kV according to patient size, use of iterative reconstruction technique) 2010 [employer]- All Rights Reserved Esophagus X-Ray 06/10/18 00:00 IMPRESSION: PROGRESSION OF THE DISTAL ESOPHAGEAL NARROWING WHICH NOW STARTS APPROXIMATELY 9 TO 10 CM ABOVE THE GE JUNCTION. 12 MM BARIUM TABLET DOES PERSIST IN THIS AREA THROUGHOUT THE PROCEDURE. SMALL HIATAL HERNIA AND GASTROESOPHAGEAL REFLUX IS AGAIN SEEN. 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 Is this a current diagnosis for this admission?: Yes (6) Esophageal stricture Is this a current diagnosis for this admission?: Yes (7) Anemia Qualifiers: Anemia type: other cause Other causes of anemia: antineoplastic chemotherapy Qualified Code(s): D64.81 - Anemia due to antineoplastic chemotherapy; T45.1X5A - Adverse effect of antineoplastic and immunosuppressive drugs, initial encounter; T45.1X5A - Adverse effect of antineoplastic and immunosuppressive drugs, initial encounter Is this a current diagnosis for this admission?: Yes (8) Pancytopenia Is this a current diagnosis for this admission?: Yes (9) Cellulitis, leg Qualifiers: Laterality: left Qualified Code(s): L03.116 - Cellulitis of left lower limb Is this a current diagnosis for this admission?: Yes
[2018-06-18 06:04] LABS: HEMATOCRIT 25.2 % (37.9-51.0); HEMOGLOBIN 8.9 g/dL (13.5-17.0); MEAN CORPUSCULAR HEMOGLOBIN 30.7 pg (27.0-33.4); MEAN CORPUSCULAR HGB CONC 35.3 g/dL (32.0-36.0); MEAN CORPUSCULAR VOLUME 87 fl (80-97); RED BLOOD COUNT 2.89 10^6/uL (4.35-5.55); RED CELL DISTRIBUTION WIDTH 15.9 % (11.5-14.0); WHITE BLOOD COUNT 3.2 10^3/uL (4.0-10.5)
[2018-06-18 06:23] LABS: ANION GAP 11 (5-19); BLOOD UREA NITROGEN 17 mg/dL (7-20); CALCIUM 9.8 mg/dL (8.4-10.2); CARBON DIOXIDE 25 mmol/L (22-30); CHLORIDE 102 mmol/L (98-107); GLUCOSE 117 mg/dL (75-110); POTASSIUM 4.5 mmol/L (3.6-5.0); SODIUM 138.1 mmol/L (137-145)
[2018-06-18 06:27] LABS: PLATELET COUNT 84 10^3/uL (150-450)
[2018-06-18] MEDS: HYDROMORPHONE HCL INJ/PF 2 MG/ML AMPULE IV PRN ×4 (06:46→15:07)
[2018-06-18] MEDS: CLINDAMYCIN HCL 150 MG CAPSULE PO SCH ×3 (06:46→21:45)
[2018-06-18] MEDS: SENNOSIDES/DOCUSATE 8.6-50 MG 1 EACH TABLET PO SCH ×2 (09:33→17:12)
[2018-06-18] MEDS: OXYCODONE HCL SR 40 MG TABLET PO SCH ×2 (09:33→21:46)
[2018-06-18] MEDS: APIXABAN 5 MG TABLET PO SCH ×2 (09:33→21:46)
[2018-06-18] MEDS: DILTIAZEM HCL 180 MG CAPSULE.CR PO SCH ×2 (09:33→21:46)
[2018-06-18] MEDS: NYSTATIN/DEXAMETH/DIPHEN SUSP 120 ML PO SCH ×4 (09:34→21:44)
[2018-06-18] MEDS: CLOTRIMAZOLE/BETAMETHASONE DIP CREAM 15 GM TOP SCH ×2 (09:35→17:12)
[2018-06-18] MEDS: FILGRASTIM INJ 480 MCG/1.6 ML VIAL SUBCUT SCH (10:02)
--- NOTE | 2018-06-18 12:03 | PDOC PROGRESS REPORT ---
Subjective Progress Note for:: 06/18/18 Subjective:: Patient doing better still having a lot of chest pain right side of the chest. But his platelet count is improved to 89, hemoglobin seems to have stabilized and white count is gone up. Reason For Visit: BILATERAL PULMONARY EMBOLISM,ADENOCARCINOMA Physical Exam Vital Signs: Temp Pulse Resp BP Pulse Ox 98.0 F 68 20 130/58 H 94 06/18/18 07:29 06/18/18 07:29 06/18/18 07:29 06/18/18 07:29 06/18/18 07:29 Intake & Output 06/17/18 06/18/18 06/19/18 06:59 06:59 06:59 Intake Total 520 100 Output Total 0 50 Balance 520 50 Weight 93.3 kg 93.5 kg General appearance: PRESENT: no acute distress, well-developed, well-nourished Head exam: PRESENT: atraumatic, normocephalic Eye exam: PRESENT: conjunctiva pink, EOMI, PERRLA. ABSENT: scleral icterus Ear exam: PRESENT: normal external ear exam Mouth exam: PRESENT: moist, tongue midline Neck exam: ABSENT: carotid bruit, JVD, lymphadenopathy, thyromegaly Respiratory exam: PRESENT: clear to auscultation jim. ABSENT: rales, rhonchi, wheezes Cardiovascular exam: PRESENT: RRR. ABSENT: diastolic murmur, rubs, systolic murmur Pulses: PRESENT: normal dorsalis pedis pul Vascular exam: PRESENT: normal capillary refill GI/Abdominal exam: PRESENT: normal bowel sounds, soft. ABSENT: distended, guarding, mass, organolmegaly, rebound, tenderness Rectal exam: PRESENT: deferred Extremities exam: PRESENT: full ROM. ABSENT: calf tenderness, clubbing, pedal edema Neurological exam: PRESENT: alert, awake, oriented to person, oriented to place , oriented to time, oriented to situation, CN II-XII grossly intact. ABSENT: motor sensory deficit Psychiatric exam: PRESENT: appropriate affect, normal mood. ABSENT: homicidal ideation, suicidal ideation Skin exam: PRESENT: dry, intact, warm. ABSENT: cyanosis, rash Results Laboratory Results: 06/18/18 05:40 06/18/18 05:40 06/18/18 06/18/18 05:40 05:40 WBC 3.2 L RBC 2.89 L Hgb 8.9 L Hct 25.2 L MCV 87 MCH 30.7 MCHC 35.3 RDW 15.9 H Plt Count 84 L Sodium 138.1 Potassium 4.5 Chloride 102 Carbon Dioxide 25 Anion Gap 11 BUN 17 Creatinine 1.41 H Est GFR ( Amer) > 60 Est GFR (Non-Af Amer) 49 L Glucose 117 H Calcium 9.8 06/07/18 06/07/18 06/07/18 02:52 02:52 02:52 Creatine Kinase < 20 L CK-MB (CK-2) 0.44 Troponin I 0.129 NT-Pro-B Natriuret Pep 1190 H 06/07/18 06/07/18 06/07/18 08:50 08:50 15:00 Creatine Kinase < 20 L < 20 L CK-MB (CK-2) 0.40 Troponin I 0.109 NT-Pro-B Natriuret Pep 06/07/18 15:00 Creatine Kinase CK-MB (CK-2) 0.39 Troponin I 0.094 NT-Pro-B Natriuret Pep Impressions: Chest X-Ray 06/06/18 19:51 IMPRESSION: Chronic lung changes. Chest/Abdomen CTA 06/06/18 19:58 IMPRESSION: Positive for acute PE. The above critical findings were discussed with and acknowledged by Dr. Croft at 11:20 PM on 06/06/2018. Findings of metastatic disease with increased interstitial thickening along the lingula and left lower lobe, which may represent disease progression or a superimposed pneumonia. TECHNICAL DOCUMENTATION: Quality ID # 436: Final reports with documentation of one or more dose reduction techniques (e.g., Automated exposure control, adjustment of the mA and/or kV according to patient size, use of iterative reconstruction technique) 2010 [employer]- All Rights Reserved Esophagus X-Ray 06/10/18 00:00 IMPRESSION: PROGRESSION OF THE DISTAL ESOPHAGEAL NARROWING WHICH NOW STARTS APPROXIMATELY 9 TO 10 CM ABOVE THE GE JUNCTION. 12 MM BARIUM TABLET DOES PERSIST IN THIS AREA THROUGHOUT THE PROCEDURE. SMALL HIATAL HERNIA AND GASTROESOPHAGEAL REFLUX IS AGAIN SEEN. Assessment & Plan - Diagnosis (1) Acute pulmonary embolism Qualifiers: Pulmonary embolism type: other Acute cor pulmonale presence: without acute cor pulmonale Qualified Code(s): I26.99 - Other pulmonary embolism without acute cor pulmonale Is this a current diagnosis for this admission?: Yes Plan: Improved, still having a lot of pain but that is to be expected with the acute PE as well as known metastasis in the lung. Asked nursing to check on O2 needs. (2) Lung cancer Qualifiers: Laterality: right Lung location: upper lobe of lung Qualified Code(s): C34.11 - Malignant neoplasm of upper lobe, right bronchus or lung Is this a current diagnosis for this admission?: Yes Plan: Counts improving, plan continue therapy as an outpatient. (3) Pancytopenia due to antineoplastic chemotherapy Is this a current diagnosis for this admission?: Yes Plan: Hemoglobin improved, platelets improved, patient is getting out of cytopenias now. (4) Anemia due to antineoplastic chemotherapy Is this a current diagnosis for this admission?: Yes Plan: Hemoglobin stable no need for transfusion (5) Thrombocytopenia Is this a current diagnosis for this admission?: Yes Plan: Platelets improving (6) Neutropenia associated with mucositis due to antineoplastic therapy Is this a current diagnosis for this admission?: Yes Plan: Plan for 1 more shot of Neupogen today and discontinue by tomorrow. (7) Pain, neoplasm-related Is this a current diagnosis for this admission?: Yes Plan: Better controlled on OxyContin, continue as outpatient. Written prescription for OxyContin. - Time Time Spent with patient: 35 or more minutes Disposition: Hopeful DC in 24 hours if counts continue to improve. - Inpatient Certification Based on my medical assessment, after consideration of the patient's comorbidities, presenting symptoms, or acuity I expect that the services needed warrant INPATIENT care.: Yes I certify that my determination is in accordance with my understanding of Medicare's requirements for reasonable and necessary INPATIENT services [42 CFR 412.3e].: Yes Medical Necessity: Risk of Complication if Not Cared For in Hospital
[2018-06-18 12:35] LABS: ABSOLUTE LYMPHOCYTES# (MANUAL) 1.9 10^3/uL (0.5-4.7); ABSOLUTE NEUTROPHILS# (MANUAL) 1.1 10^3/uL (1.7-8.2); BAND NEUTROPHILS % (MANUAL) 5 % (3-5); BASOPHILS % (MANUAL) 0 % (0-2); EOSINOPHILS % (MANUAL) 6 % (0-6); LYMPHOCYTES % (MANUAL) 59 % (13-45); MONOCYTES % (MANUAL) 1 % (3-13); SEGMENTED NEUTROPHILS % (MAN) 29 % (42-78); TOTAL CELLS COUNTED 100
[2018-06-18 12:36] LABS: ANISOCYTOSIS 1+; POLYCHROMASIA SLIGHT
[2018-06-18 12:37] LABS: PLATELET COMMENT DECREASED
--- NOTE | 2018-06-18 13:50 | PDOC PROGRESS REPORT ---
Subjective Progress Note for:: 06/18/18 Subjective:: Patient was seen this morning by the bedside, showing signs of improvement, the hemogram is also improved, the platelet count is improved, hopefully discharge him tomorrow, he was seen by oncology as well this morning Reason For Visit: BILATERAL PULMONARY EMBOLISM,ADENOCARCINOMA Physical Exam Vital Signs: Temp Pulse Resp BP Pulse Ox 98.5 F 64 20 123/77 92 06/18/18 11:26 06/18/18 11:26 06/18/18 11:26 06/18/18 11:26 06/18/18 11:26 Intake & Output 06/17/18 06/18/18 06/19/18 06:59 06:59 06:59 Intake Total 520 100 921 Output Total 0 50 Balance 520 50 921 Weight 93.3 kg 93.5 kg General appearance: PRESENT: no acute distress Eye exam: PRESENT: PERRLA Respiratory exam: PRESENT: clear to auscultation jim Cardiovascular exam: PRESENT: +S1, +S2 GI/Abdominal exam: PRESENT: soft Neurological exam: PRESENT: alert Results Laboratory Results: 06/18/18 05:40 06/18/18 05:40 06/18/18 06/18/18 05:40 05:40 WBC 3.2 L RBC 2.89 L Hgb 8.9 L Hct 25.2 L MCV 87 MCH 30.7 MCHC 35.3 RDW 15.9 H Plt Count 84 L Seg Neutrophils % Not Reportable Lymphocytes % Not Reportable Monocytes % Not Reportable Eosinophils % Not Reportable Basophils % Not Reportable Absolute Neutrophils Not Reportable Absolute Lymphocytes Not Reportable Absolute Monocytes Not Reportable Absolute Eosinophils Not Reportable Absolute Basophils Not Reportable Sodium 138.1 Potassium 4.5 Chloride 102 Carbon Dioxide 25 Anion Gap 11 BUN 17 Creatinine 1.41 H Est GFR ( Amer) > 60 Est GFR (Non-Af Amer) 49 L Glucose 117 H Calcium 9.8 06/07/18 06/07/18 06/07/18 02:52 02:52 02:52 Creatine Kinase < 20 L CK-MB (CK-2) 0.44 Troponin I 0.129 NT-Pro-B Natriuret Pep 1190 H 06/07/18 06/07/18 06/07/18 08:50 08:50 15:00 Creatine Kinase < 20 L < 20 L CK-MB (CK-2) 0.40 Troponin I 0.109 NT-Pro-B Natriuret Pep 06/07/18 15:00 Creatine Kinase CK-MB (CK-2) 0.39 Troponin I 0.094 NT-Pro-B Natriuret Pep Impressions: Chest X-Ray 06/06/18 19:51 IMPRESSION: Chronic lung changes. Chest/Abdomen CTA 06/06/18 19:58 IMPRESSION: Positive for acute PE. The above critical findings were discussed with and acknowledged by Dr. Croft at 11:20 PM on 06/06/2018. Findings of metastatic disease with increased interstitial thickening along the lingula and left lower lobe, which may represent disease progression or a superimposed pneumonia. TECHNICAL DOCUMENTATION: Quality ID # 436: Final reports with documentation of one or more dose reduction techniques (e.g., Automated exposure control, adjustment of the mA and/or kV according to patient size, use of iterative reconstruction technique) 2010 [employer]- All Rights Reserved Esophagus X-Ray 06/10/18 00:00 IMPRESSION: PROGRESSION OF THE DISTAL ESOPHAGEAL NARROWING WHICH NOW STARTS APPROXIMATELY 9 TO 10 CM ABOVE THE GE JUNCTION. 12 MM BARIUM TABLET DOES PERSIST IN THIS AREA THROUGHOUT THE PROCEDURE. SMALL HIATAL HERNIA AND GASTROESOPHAGEAL REFLUX IS AGAIN SEEN. 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 Is this a current diagnosis for this admission?: Yes (6) Esophageal stricture Is this a current diagnosis for this admission?: Yes (7) Anemia Qualifiers: Anemia type: other cause Other causes of anemia: antineoplastic chemotherapy Qualified Code(s): D64.81 - Anemia due to antineoplastic chemotherapy; T45.1X5A - Adverse effect of antineoplastic and immunosuppressive drugs, initial encounter; T45.1X5A - Adverse effect of antineoplastic and immunosuppressive drugs, initial encounter Is this a current diagnosis for this admission?: Yes (8) Pancytopenia Is this a current diagnosis for this admission?: Yes (9) Cellulitis, leg Qualifiers: Laterality: left Qualified Code(s): L03.116 - Cellulitis of left lower limb Is this a current diagnosis for this admission?: Yes
[2018-06-18] MEDS: POLYETHYLENE GLYCOL 3350 POWDER 17 GM/1 PACKET PO PRN (21:51)
[2018-06-19] MEDS: CLINDAMYCIN HCL 150 MG CAPSULE PO SCH ×3 (06:12→22:25)
[2018-06-19] MEDS: OXYCODONE HCL SR 40 MG TABLET PO SCH ×2 (10:27→22:24)
[2018-06-19] MEDS: DILTIAZEM HCL 180 MG CAPSULE.CR PO SCH ×2 (10:27→22:26)
[2018-06-19] MEDS: SENNOSIDES/DOCUSATE 8.6-50 MG 1 EACH TABLET PO SCH ×2 (10:27→17:32)
[2018-06-19] MEDS: APIXABAN 5 MG TABLET PO SCH ×2 (10:27→22:25)
[2018-06-19] MEDS: NYSTATIN/DEXAMETH/DIPHEN SUSP 120 ML PO SCH ×4 (10:28→22:30)
[2018-06-19] MEDS: CLOTRIMAZOLE/BETAMETHASONE DIP CREAM 15 GM TOP SCH ×2 (10:28→17:33)
[2018-06-19] MEDS ORDERED: NORMAL SALINE 1000 ML 1,000 ML IV PRN (12:43)
[2018-06-19] MEDS: DOCUSATE SODIUM 100 MG CAPSULE PO SCH ×2 (14:08→22:25)
--- NOTE | 2018-06-19 14:27 | RADIOLOGY REPORT (SQ) ---
EXAM DESCRIPTION: CTA CHEST COMPLETED DATE/TIME: 06/19/2018 1:56 pm REASON FOR STUDY: worsening sob COMPARISON: [address] chest exams since 2009, most recently 06/06/2018, 05/10/2018, 02/16/2018, 0 TECHNIQUE: CT scan of the chest performed using helical scanning technique with dynamic intravenous contrast injection. Images reviewed with lung, soft tissue and bone windows. Reconstructed coronal and sagittal MPR images reviewed. Additional 3 dimensional post-processing performed to develop Maximal Intensity Projection images (NE P). All images stored on PACS. All CT scanners at this facility use dose modulation, iterative reconstruction, and/or weight based d osing when appropriate to reduce radiation dose to as low as reasonably achievable (ALARA). [facility]: Dose Right [facility]: CareDose [facility]: Dose Right [facility]: Teradose 4D [facility]: Greener Expressions CONTRAST TYPE AND DOSE: contrast/concentration: Isovue 350.00 mg/ml; Total Contrast Delivered: 78.0 ml; Total Saline Delivered: 90.0 ml Contrast bolus optimized for the pulmonary arteries. Not diagnostic for the aorta. RENAL FUNCTION: Creatinine 1.4 RADIATION DOSE: CT Rad equipment meets quality standard of care and radiation dose reduction techniq ues were employed. CTDIvol: 18.8 - 26.4 mGy. DLP: 700 mGy-cm. . LIMITATIONS: None. FINDINGS: LUNGS AND PLEURA: There is now patchy ground-glass opacity in the bilateral upper lobes wo rrisome for mild pulmonary edema or pneumonia. This is new compared to 06/06/2018. Other findings are stable compared to the previous chest CT including a thick walled cavity in the ri ght lower lobe, right trace pleural fluid/pleural thickening, and old post surgical changes with part ial resection of the right upper lobe. AORTA AND GREAT VESSELS: No aneurysm. Contrast bolus not optimized for the aorta. HEART: No pericardial effusion. No significant coronary artery calcifications. New PULMONARY ARTERIES: There are tiny filling defects in the right lower lobe segmental pulmonary ar teries on axial image 55 and 63. These filling defects are smaller than on CT angio chest 06/06/2018 and are likely resolving clot from the previous episode of embolism. There is minimal intraluminal thrombus in the left lower lobe superior segment pulmonary artery and p osterior basal segmental are pulmonary artery. These are smaller than on 06/06/2018 and are likely re solving clot from the previous episode of embolism. New HILAR AND MEDIASTINAL STRUCTURES: No identified masses or abnormal nodes. HARDWARE: Surgical jimbo post partial resection right upper lobe UPPER ABDOMEN: Small hiatal hernia. Benign-appearing 10 cm right upper pole cortical cyst THYROID AND OTHER SOFT TISSUES: No masses. No adenopathy. BONES: Diffuse bony sclerosis in the thoracic spine, similar compared to previous studies 3D MIPS: Confirm above findings. OTHER: No other significant finding. IMPRESSION: New patchy ground-glass opacity throughout both upper lobes worrisome for pulmonary jesse a or pneumonia Tiny filling defects in the right lower lobe and left lower lobe pulmonary arteries, less prominent t atkins on 06/06/2018. These are probably resolving emboli. COMMENT: Quality ID # 436: Final reports with documentation of one or more dose reduction techniques (e.g., Automated exposure control, adjustment of the mA and/or kV according to patient size, use of iterative reconstruction technique) TECHNICAL DOCUMENTATION: JOB ID: [id number] [employer]- All Rights Reserved Reading location - IP/workstation name: [email or web address]
[2018-06-19] MEDS ORDERED: FUROSEMIDE INJ/PF 40 MG/4 ML SDV IV ONE (16:21)
--- NOTE | 2018-06-19 16:21 | PDOC PROGRESS REPORT ---
Subjective Progress Note for:: 06/19/18 Subjective:: Patient of difficulty maintaining adequate oxygen saturation, a stat CTA chest was done, it demonstrated new patchy groundglass opacity in the bilateral upper lobes worrisome for mild pulmonary edema or pneumonia this is new compared to Reason For Visit: BILATERAL PULMONARY EMBOLISM,ADENOCARCINOMA Physical Exam Vital Signs: Temp Pulse Resp BP Pulse Ox 98.2 F 103 H 18 127/47 H 97 06/19/18 11:42 06/19/18 14:00 06/19/18 11:42 06/19/18 11:42 06/19/18 11:42 Intake & Output 06/18/18 06/19/18 06/20/18 06:59 06:59 06:59 Intake Total 100 1513 400 Output Total 50 Balance 50 1513 400 Weight 93.5 kg 94.5 kg General appearance: PRESENT: no acute distress Eye exam: PRESENT: PERRLA Respiratory exam: PRESENT: rhonchi Cardiovascular exam: PRESENT: +S1, +S2 GI/Abdominal exam: PRESENT: soft Neurological exam: PRESENT: alert, CN II-XII grossly intact Results Laboratory Results: 06/18/18 05:40 06/18/18 05:40 06/07/18 06/07/18 06/07/18 02:52 02:52 02:52 Creatine Kinase < 20 L CK-MB (CK-2) 0.44 Troponin I 0.129 NT-Pro-B Natriuret Pep 1190 H 06/07/18 06/07/18 06/07/18 08:50 08:50 15:00 Creatine Kinase < 20 L < 20 L CK-MB (CK-2) 0.40 Troponin I 0.109 NT-Pro-B Natriuret Pep 06/07/18 15:00 Creatine Kinase CK-MB (CK-2) 0.39 Troponin I 0.094 NT-Pro-B Natriuret Pep Impressions: Chest X-Ray 06/06/18 19:51 IMPRESSION: Chronic lung changes. Esophagus X-Ray 06/10/18 00:00 IMPRESSION: PROGRESSION OF THE DISTAL ESOPHAGEAL NARROWING WHICH NOW STARTS APPROXIMATELY 9 TO 10 CM ABOVE THE GE JUNCTION. 12 MM BARIUM TABLET DOES PERSIST IN THIS AREA THROUGHOUT THE PROCEDURE. SMALL HIATAL HERNIA AND GASTROESOPHAGEAL REFLUX IS AGAIN SEEN. Chest/Abdomen CTA 06/19/18 00:00 IMPRESSION: New patchy ground-glass opacity throughout both upper lobes worrisome for pulmonary edema or pneumonia Tiny filling defects in the right lower lobe and left lower lobe pulmonary arteries, less prominent than on 06/06/2018. These are probably resolving emboli. 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 Is this a current diagnosis for this admission?: Yes (6) Esophageal stricture Is this a current diagnosis for this admission?: Yes (7) Anemia Qualifiers: Anemia type: other cause Other causes of anemia: antineoplastic chemotherapy Qualified Code(s): D64.81 - Anemia due to antineoplastic chemotherapy; T45.1X5A - Adverse effect of antineoplastic and immunosuppressive drugs, initial encounter; T45.1X5A - Adverse effect of antineoplastic and immunosuppressive drugs, initial encounter Is this a current diagnosis for this admission?: Yes (8) Pancytopenia Is this a current diagnosis for this admission?: Yes (9) Cellulitis, leg Qualifiers: Laterality: left Qualified Code(s): L03.116 - Cellulitis of left lower limb Is this a current diagnosis for this admission?: Yes - Plan Summary Plan Summary: , Patient was supposed to be discharged today he has difficulty maintaining adequate oxygen saturation, the CTA suggests new pulmonary edema versus pneumonia, will give Lasix 40 mg IV will reevaluate in few hours
[2018-06-19 17:38] LABS: ARTERIAL BLOOD BASE EXCESS 3.3 mmol/L; ARTERIAL BLOOD FIO2 4L; ARTERIAL BLOOD H2CO3 1.44 mmol/L (1.05-1.35); ARTERIAL BLOOD HCO3 28.4 mmol/L (20-24); ARTERIAL BLOOD O2 SATURATION 88.8 % (94-98); ARTERIAL BLOOD PCO2 47.7 mmHg (35-45); ARTERIAL BLOOD PH 7.39 (7.35-7.45); ARTERIAL BLOOD PO2 56.2 mmHg (80-100); ARTERIAL BLOOD TOTAL CO2 29.8 mmol/L (23-27)
--- NOTE | 2018-06-19 20:03 | PDOC DISCHARGE SUMMARY ---
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 Is this a current diagnosis for this admission?: Yes (6) Esophageal stricture Is this a current diagnosis for this admission?: Yes (7) Anemia Is this a current diagnosis for this admission?: Yes (8) Pancytopenia Is this a current diagnosis for this admission?: Yes (9) Cellulitis, leg Is this a current diagnosis for this admission?: Yes - Additional Information Resuscitation Status: Full Code Prescriptions: Apixaban [Eliquis 5 mg Tablet] 5 mg PO Q12 #60 tablet Home Medications: Atenolol [Tenormin 50 mg Tablet] 50 mg PO DAILY 06/07/18 Atorvastatin Calcium [Lipitor 40 mg Tablet] 40 mg PO QHS 06/07/18 Fluticasone/Umeclidin/Vilanter [Trelegy 100-62.5-25 Mcg Ellipta 14 Dose/Dpi] 1 puff IH DAILY 06/07/18 Ipratropium/Albuterol Sulfate [Iprat-Albut 0.5-3(2.5) mg/3 ml] 3 ml NEB Q4HP PRN 06/07/18 Losartan/Hydrochlorothiazide [Hyzaar 100-25 Tablet] 1 tab PO DAILY 06/07/18 Apixaban [Eliquis 5 mg Tablet] 5 mg PO Q12 #60 tablet 06/19/18 Oxycodone HCl [Oxycontin Sr 40 mg Tablet] 40 mg PO Q12 tab.sr.12h 06/19/18 Physical Exam Vital Signs: Temp Pulse Resp BP Pulse Ox 98.3 F 91 16 129/60 H 93 06/19/18 15:21 06/19/18 15:21 06/19/18 15:21 06/19/18 15:21 06/19/18 15:21 Intake & Output 06/18/18 06/19/18 06/20/18 06:59 06:59 06:59 Intake Total 100 1513 800 Output Total 50 Balance 50 1513 800 Weight 93.5 kg 94.5 kg Results Laboratory Results: 06/18/18 05:40 06/18/18 05:40 06/19/18 16:40 Carbonic Acid 1.44 H HCO3/H2CO3 Ratio 19:1 ABG pH 7.39 ABG pCO2 47.7 H ABG pO2 56.2 L ABG HCO3 28.4 H ABG O2 Saturation 88.8 L ABG Base Excess 3.3 FiO2 4L 06/07/18 06/07/18 06/07/18 02:52 02:52 02:52 Creatine Kinase < 20 L CK-MB (CK-2) 0.44 Troponin I 0.129 NT-Pro-B Natriuret Pep 1190 H 06/07/18 06/07/18 06/07/18 08:50 08:50 15:00 Creatine Kinase < 20 L < 20 L CK-MB (CK-2) 0.40 Troponin I 0.109 NT-Pro-B Natriuret Pep 06/07/18 15:00 Creatine Kinase CK-MB (CK-2) 0.39 Troponin I 0.094 NT-Pro-B Natriuret Pep Impressions: Chest X-Ray 06/06/18 19:51 IMPRESSION: Chronic lung changes. Esophagus X-Ray 06/10/18 00:00 IMPRESSION: PROGRESSION OF THE DISTAL ESOPHAGEAL NARROWING WHICH NOW STARTS APPROXIMATELY 9 TO 10 CM ABOVE THE GE JUNCTION. 12 MM BARIUM TABLET DOES PERSIST IN THIS AREA THROUGHOUT THE PROCEDURE. SMALL HIATAL HERNIA AND GASTROESOPHAGEAL REFLUX IS AGAIN SEEN. Chest/Abdomen CTA 06/19/18 00:00 IMPRESSION: New patchy ground-glass opacity throughout both upper lobes worrisome for pulmonary edema or pneumonia Tiny filling defects in the right lower lobe and left lower lobe pulmonary arteries, less prominent than on 06/06/2018. These are probably resolving emboli.
[2018-06-20 04:28] LABS: ARTERIAL BLOOD BASE EXCESS -4.3 mmol/L; ARTERIAL BLOOD H2CO3 1.23 mmol/L (1.05-1.35); ARTERIAL BLOOD HCO3 21.2 mmol/L (20-24); ARTERIAL BLOOD O2 SATURATION 85.9 % (94-98); ARTERIAL BLOOD PCO2 40.8 mmHg (35-45); ARTERIAL BLOOD PH 7.33 (7.35-7.45); ARTERIAL BLOOD PO2 53.7 mmHg (80-100); ARTERIAL BLOOD TOTAL CO2 22.5 mmol/L (23-27)
[2018-06-20 04:49] LABS: ARTERIAL BLOOD FIO2 4L
[2018-06-20] MEDS: CLINDAMYCIN HCL 150 MG CAPSULE PO SCH ×2 (06:31→14:41)
[2018-06-20] MEDS ORDERED: FUROSEMIDE INJ/PF 40 MG/4 ML SDV IV ONE (08:00)
--- NOTE | 2018-06-20 08:00 | PDOC PROGRESS REPORT ---
Subjective Progress Note for:: 06/20/18 Subjective:: Yesterday pt had O2 removed and sat < 88%, was walked and went into 60s, had to inc to 4L, I was called and suggested repeat CT, this was done, reviewed images , lung ca and changes stable, pulm emboli decreasing in size but b/l opacities c /w pulm edema, so given lasix yesterday and this am by Dr. García Sharif/aide pt and who are at bedside at length, spent >35 min in discussion. Reason For Visit: BILATERAL PULMONARY EMBOLISM,ADENOCARCINOMA Physical Exam Vital Signs: Temp Pulse Resp BP Pulse Ox 98.3 F 113 H 17 137/40 H 93 06/20/18 03:46 06/20/18 03:46 06/20/18 03:46 06/20/18 03:46 06/20/18 03:46 Intake & Output 06/19/18 06/20/18 06/21/18 06:59 06:59 06:59 Intake Total 1513 2172 Output Total 125 Balance 1513 2047 Weight 94.5 kg 95.1 kg General appearance: PRESENT: no acute distress, well-developed, well-nourished Head exam: PRESENT: atraumatic, normocephalic Eye exam: PRESENT: conjunctiva pink, EOMI, PERRLA. ABSENT: scleral icterus Ear exam: PRESENT: normal external ear exam Mouth exam: PRESENT: moist, tongue midline Neck exam: ABSENT: carotid bruit, JVD, lymphadenopathy, thyromegaly Respiratory exam: PRESENT: clear to auscultation jim. ABSENT: rales, rhonchi, wheezes Cardiovascular exam: PRESENT: RRR. ABSENT: diastolic murmur, rubs, systolic murmur Pulses: PRESENT: normal dorsalis pedis pul Vascular exam: PRESENT: normal capillary refill GI/Abdominal exam: PRESENT: normal bowel sounds, soft. ABSENT: distended, guarding, mass, organolmegaly, rebound, tenderness Rectal exam: PRESENT: deferred Extremities exam: PRESENT: full ROM. ABSENT: calf tenderness, clubbing, pedal edema Neurological exam: PRESENT: alert, awake, oriented to person, oriented to place , oriented to time, oriented to situation, CN II-XII grossly intact. ABSENT: motor sensory deficit Psychiatric exam: PRESENT: appropriate affect, normal mood. ABSENT: homicidal ideation, suicidal ideation Skin exam: PRESENT: dry, intact, warm. ABSENT: cyanosis, rash Results Laboratory Results: 06/18/18 05:40 06/18/18 05:40 06/19/18 06/20/18 16:40 04:15 Carbonic Acid 1.44 H 1.23 HCO3/H2CO3 Ratio 19:1 17:1 ABG pH 7.39 7.33 L ABG pCO2 47.7 H 40.8 ABG pO2 56.2 L 53.7 L ABG HCO3 28.4 H 21.2 ABG O2 Saturation 88.8 L 85.9 L ABG Base Excess 3.3 -4.3 FiO2 4L 4L 06/07/18 06/07/18 06/07/18 02:52 02:52 02:52 Creatine Kinase < 20 L CK-MB (CK-2) 0.44 Troponin I 0.129 NT-Pro-B Natriuret Pep 1190 H 06/07/18 06/07/18 06/07/18 08:50 08:50 15:00 Creatine Kinase < 20 L < 20 L CK-MB (CK-2) 0.40 Troponin I 0.109 NT-Pro-B Natriuret Pep 06/07/18 15:00 Creatine Kinase CK-MB (CK-2) 0.39 Troponin I 0.094 NT-Pro-B Natriuret Pep Impressions: Chest X-Ray 06/06/18 19:51 IMPRESSION: Chronic lung changes. Esophagus X-Ray 06/10/18 00:00 IMPRESSION: PROGRESSION OF THE DISTAL ESOPHAGEAL NARROWING WHICH NOW STARTS APPROXIMATELY 9 TO 10 CM ABOVE THE GE JUNCTION. 12 MM BARIUM TABLET DOES PERSIST IN THIS AREA THROUGHOUT THE PROCEDURE. SMALL HIATAL HERNIA AND GASTROESOPHAGEAL REFLUX IS AGAIN SEEN. Chest/Abdomen CTA 06/19/18 00:00 IMPRESSION: New patchy ground-glass opacity throughout both upper lobes worrisome for pulmonary edema or pneumonia Tiny filling defects in the right lower lobe and left lower lobe pulmonary arteries, less prominent than on 06/06/2018. These are probably resolving emboli. Assessment & Plan - Diagnosis (1) Acute pulmonary embolism Qualifiers: Pulmonary embolism type: other Acute cor pulmonale presence: without acute cor pulmonale Qualified Code(s): I26.99 - Other pulmonary embolism without acute cor pulmonale Is this a current diagnosis for this admission?: Yes Plan: Repeat CBC pending, cont eliquis (2) Lung cancer Qualifiers: Laterality: right Lung location: upper lobe of lung Qualified Code(s): C34.11 - Malignant neoplasm of upper lobe, right bronchus or lung Is this a current diagnosis for this admission?: Yes Plan: further rx as outpt (3) Pancytopenia due to antineoplastic chemotherapy Is this a current diagnosis for this admission?: Yes Plan: Improved (4) Anemia due to antineoplastic chemotherapy Is this a current diagnosis for this admission?: Yes Plan: Awaiting hb from this am (5) Thrombocytopenia Is this a current diagnosis for this admission?: Yes Plan: Awaiting cbc (6) Neutropenia associated with mucositis due to antineoplastic therapy Is this a current diagnosis for this admission?: Yes Plan: Resolved, d/c'd neupogen on sat (7) Pain, neoplasm-related Is this a current diagnosis for this admission?: Yes Plan: Cont current regimen (8) Pulmonary edema Qualifiers: Chronicity: acute Qualified Code(s): J81.0 - Acute pulmonary edema Is this a current diagnosis for this admission?: Yes Plan: 2nd to fluid overload and multiple blood products and fluids given over last 10 days, lasix given, will follow - Time Time Spent with patient: 35 or more minutes - Inpatient Certification Based on my medical assessment, after consideration of the patient's comorbidities, presenting symptoms, or acuity I expect that the services needed warrant INPATIENT care.: Yes I certify that my determination is in accordance with my understanding of Medicare's requirements for reasonable and necessary INPATIENT services [42 CFR 412.3e].: Yes Medical Necessity: Need for Nebulizer Therapy and Monitoring of Response, Risk of Complication if Not Cared For in Hospital
[2018-06-20] MEDS: DILTIAZEM HCL 180 MG CAPSULE.CR PO SCH ×2 (09:20→21:31)
[2018-06-20] MEDS: NYSTATIN/DEXAMETH/DIPHEN SUSP 120 ML PO SCH ×4 (09:21→21:30)
[2018-06-20] MEDS: APIXABAN 5 MG TABLET PO SCH ×2 (09:21→21:31)
[2018-06-20] MEDS: SENNOSIDES/DOCUSATE 8.6-50 MG 1 EACH TABLET PO SCH ×2 (09:21→18:01)
[2018-06-20] MEDS: DOCUSATE SODIUM 100 MG CAPSULE PO SCH ×2 (09:21→21:31)
[2018-06-20] MEDS: OXYCODONE HCL SR 40 MG TABLET PO SCH ×2 (09:21→21:30)
[2018-06-20] MEDS: CLOTRIMAZOLE/BETAMETHASONE DIP CREAM 15 GM TOP SCH ×2 (09:23→18:03)
[2018-06-20 09:48] LABS: HEMATOCRIT 23.9 % (37.9-51.0); HEMOGLOBIN 8.2 g/dL (13.5-17.0); MEAN CORPUSCULAR HEMOGLOBIN 30.2 pg (27.0-33.4); MEAN CORPUSCULAR HGB CONC 34.6 g/dL (32.0-36.0); MEAN CORPUSCULAR VOLUME 87 fl (80-97); PLATELET COUNT 133 10^3/uL (150-450); RED BLOOD COUNT 2.73 10^6/uL (4.35-5.55); RED CELL DISTRIBUTION WIDTH 16.4 % (11.5-14.0)
[2018-06-20 09:50] LABS: WHITE BLOOD COUNT 13.4 10^3/uL (4.0-10.5)
[2018-06-20] MEDS: LIDOCAINE 2% VISCOUS SOLN 20 ML UDCUP PO PRN (15:51)
--- NOTE | 2018-06-20 18:04 | EKG REPORT ---
SEVERITY:- ABNORMAL ECG - WANDERING PACEMAKER SUPRAVENTRICULAR BIGEMINY RBBB AND LAFB : Confirmed by: Shandra Salgado MD 20-Jun-2018 18:03:38
--- NOTE | 2018-06-20 20:41 | PDOC PROGRESS REPORT ---
Subjective Progress Note for:: 06/20/18 Subjective:: Patient was supposed to be discharged home today but could not maintain adequate oxygen saturation on 4 L of nasal cannula, the discharge plan was canceled Reason For Visit: BILATERAL PULMONARY EMBOLISM,ADENOCARCINOMA Physical Exam Vital Signs: Temp Pulse Resp BP Pulse Ox 97.9 F 86 16 120/57 L 93 06/20/18 19:39 06/20/18 19:39 06/20/18 19:39 06/20/18 19:39 06/20/18 19:39 Intake & Output 06/19/18 06/20/18 06/21/18 06:59 06:59 06:59 Intake Total 1513 2172 493 Output Total 125 100 Balance 1513 2047 393 Weight 94.5 kg 95.1 kg General appearance: PRESENT: no acute distress Eye exam: PRESENT: PERRLA Respiratory exam: PRESENT: rhonchi Cardiovascular exam: PRESENT: +S1, +S2 GI/Abdominal exam: PRESENT: soft Neurological exam: PRESENT: alert Results Laboratory Results: 06/20/18 09:20 06/18/18 05:40 06/20/18 06/20/18 04:15 09:20 WBC 13.4 H D RBC 2.73 L Hgb 8.2 L Hct 23.9 L MCV 87 MCH 30.2 MCHC 34.6 RDW 16.4 H Plt Count 133 L Carbonic Acid 1.23 HCO3/H2CO3 Ratio 17:1 ABG pH 7.33 L ABG pCO2 40.8 ABG pO2 53.7 L ABG HCO3 21.2 ABG O2 Saturation 85.9 L ABG Base Excess -4.3 FiO2 4L 06/07/18 06/07/18 06/07/18 02:52 02:52 02:52 Creatine Kinase < 20 L CK-MB (CK-2) 0.44 Troponin I 0.129 NT-Pro-B Natriuret Pep 1190 H 06/07/18 06/07/18 06/07/18 08:50 08:50 15:00 Creatine Kinase < 20 L < 20 L CK-MB (CK-2) 0.40 Troponin I 0.109 NT-Pro-B Natriuret Pep 06/07/18 15:00 Creatine Kinase CK-MB (CK-2) 0.39 Troponin I 0.094 NT-Pro-B Natriuret Pep Impressions: Chest X-Ray 06/06/18 19:51 IMPRESSION: Chronic lung changes. Esophagus X-Ray 06/10/18 00:00 IMPRESSION: PROGRESSION OF THE DISTAL ESOPHAGEAL NARROWING WHICH NOW STARTS APPROXIMATELY 9 TO 10 CM ABOVE THE GE JUNCTION. 12 MM BARIUM TABLET DOES PERSIST IN THIS AREA THROUGHOUT THE PROCEDURE. SMALL HIATAL HERNIA AND GASTROESOPHAGEAL REFLUX IS AGAIN SEEN. Chest/Abdomen CTA 06/19/18 00:00 IMPRESSION: New patchy ground-glass opacity throughout both upper lobes worrisome for pulmonary edema or pneumonia Tiny filling defects in the right lower lobe and left lower lobe pulmonary arteries, less prominent than on 06/06/2018. These are probably resolving emboli. 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 Is this a current diagnosis for this admission?: Yes (6) Esophageal stricture Is this a current diagnosis for this admission?: Yes (7) Anemia Qualifiers: Anemia type: other cause Other causes of anemia: antineoplastic chemotherapy Qualified Code(s): D64.81 - Anemia due to antineoplastic chemotherapy; T45.1X5A - Adverse effect of antineoplastic and immunosuppressive drugs, initial encounter; T45.1X5A - Adverse effect of antineoplastic and immunosuppressive drugs, initial encounter Is this a current diagnosis for this admission?: Yes (8) Pancytopenia Is this a current diagnosis for this admission?: Yes (9) Cellulitis, leg Qualifiers: Laterality: left Qualified Code(s): L03.116 - Cellulitis of left lower limb Is this a current diagnosis for this admission?: Yes (10) Acute hypoxemic respiratory failure Is this a current diagnosis for this admission?: Yes Plan: The etiology of the acute hypoxemic respiratory failure is probably multifactorial, pulmonary embolism, lung cancer, pulmonary edema, pneumonia , all theses are potential etiology of the acute hypoxemic respiratory failure, start p.o. antibiotic, consultation for pulmonary to be obtained
[2018-06-20] MEDS: LEVOFLOXACIN 750 MG TABLET PO SCH (21:30)
[2018-06-21 06:28] LABS: MEAN CORPUSCULAR HEMOGLOBIN 30.3 pg (27.0-33.4); MEAN CORPUSCULAR HGB CONC 34.2 g/dL (32.0-36.0); MEAN CORPUSCULAR VOLUME 89 fl (80-97); PLATELET COUNT 107 10^3/uL (150-450); RED BLOOD COUNT 2.37 10^6/uL (4.35-5.55); WHITE BLOOD COUNT 12.9 10^3/uL (4.0-10.5)
[2018-06-21 06:29] LABS: HEMOGLOBIN 7.2 g/dL (13.5-17.0)
[2018-06-21] MEDS: HYDROMORPHONE HCL INJ/PF 2 MG/ML AMPULE IV PRN ×5 (07:30→19:26)
--- NOTE | 2018-06-21 08:18 | PDOC PROGRESS REPORT ---
Subjective Progress Note for:: 06/21/18 Subjective:: Pt had high 02 needs yesterday, nursing walked pt and on 4L O2 pt still had desat to 85. So we stopped D/C and now have pulmonary and cards consults pending. Reason For Visit: BILATERAL PULMONARY EMBOLISM,ADENOCARCINOMA Physical Exam Vital Signs: Temp Pulse Resp BP Pulse Ox 97.9 F 57 L 20 134/60 H 97 06/21/18 07:36 06/21/18 07:36 06/21/18 07:36 06/21/18 07:36 06/21/18 07:36 Intake & Output 06/20/18 06/21/18 06/22/18 06:59 06:59 06:59 Intake Total 2172 693 Output Total 125 100 Balance 2047 593 Weight 95.1 kg 93.3 kg General appearance: PRESENT: no acute distress, well-developed, well-nourished Head exam: PRESENT: atraumatic, normocephalic Eye exam: PRESENT: conjunctiva pink, EOMI, PERRLA. ABSENT: scleral icterus Ear exam: PRESENT: normal external ear exam Mouth exam: PRESENT: moist, tongue midline Neck exam: ABSENT: carotid bruit, JVD, lymphadenopathy, thyromegaly Respiratory exam: PRESENT: clear to auscultation jim. ABSENT: rales, rhonchi, wheezes Cardiovascular exam: PRESENT: RRR. ABSENT: diastolic murmur, rubs, systolic murmur Pulses: PRESENT: normal dorsalis pedis pul Vascular exam: PRESENT: normal capillary refill GI/Abdominal exam: PRESENT: normal bowel sounds, soft. ABSENT: distended, guarding, mass, organolmegaly, rebound, tenderness Rectal exam: PRESENT: deferred Extremities exam: PRESENT: full ROM. ABSENT: calf tenderness, clubbing, pedal edema Neurological exam: PRESENT: alert, awake, oriented to person, oriented to place , oriented to time, oriented to situation, CN II-XII grossly intact. ABSENT: motor sensory deficit Psychiatric exam: PRESENT: appropriate affect, normal mood. ABSENT: homicidal ideation, suicidal ideation Skin exam: PRESENT: dry, intact, warm. ABSENT: cyanosis, rash Results Laboratory Results: 06/21/18 06:17 06/18/18 05:40 06/20/18 06/21/18 09:20 06:17 WBC 13.4 H D 12.9 H RBC 2.73 L 2.37 L Hgb 8.2 L 7.2 L Hct 23.9 L 21.0 L MCV 87 89 MCH 30.2 30.3 MCHC 34.6 34.2 RDW 16.4 H 16.0 H Plt Count 133 L 107 L 06/07/18 06/07/18 06/07/18 02:52 02:52 02:52 Creatine Kinase < 20 L CK-MB (CK-2) 0.44 Troponin I 0.129 NT-Pro-B Natriuret Pep 1190 H 06/07/18 06/07/18 06/07/18 08:50 08:50 15:00 Creatine Kinase < 20 L < 20 L CK-MB (CK-2) 0.40 Troponin I 0.109 NT-Pro-B Natriuret Pep 06/07/18 15:00 Creatine Kinase CK-MB (CK-2) 0.39 Troponin I 0.094 NT-Pro-B Natriuret Pep Impressions: Chest X-Ray 06/06/18 19:51 IMPRESSION: Chronic lung changes. Esophagus X-Ray 06/10/18 00:00 IMPRESSION: PROGRESSION OF THE DISTAL ESOPHAGEAL NARROWING WHICH NOW STARTS APPROXIMATELY 9 TO 10 CM ABOVE THE GE JUNCTION. 12 MM BARIUM TABLET DOES PERSIST IN THIS AREA THROUGHOUT THE PROCEDURE. SMALL HIATAL HERNIA AND GASTROESOPHAGEAL REFLUX IS AGAIN SEEN. Chest/Abdomen CTA 06/19/18 00:00 IMPRESSION: New patchy ground-glass opacity throughout both upper lobes worrisome for pulmonary edema or pneumonia Tiny filling defects in the right lower lobe and left lower lobe pulmonary arteries, less prominent than on 06/06/2018. These are probably resolving emboli. Assessment & Plan - Diagnosis (1) Acute pulmonary embolism Qualifiers: Pulmonary embolism type: other Acute cor pulmonale presence: without acute cor pulmonale Qualified Code(s): I26.99 - Other pulmonary embolism without acute cor pulmonale Is this a current diagnosis for this admission?: Yes Plan: Cont anticoag (2) Lung cancer Qualifiers: Laterality: right Lung location: upper lobe of lung Qualified Code(s): C34.11 - Malignant neoplasm of upper lobe, right bronchus or lung Is this a current diagnosis for this admission?: Yes Plan: further rx as oupt (3) Pancytopenia due to antineoplastic chemotherapy Is this a current diagnosis for this admission?: Yes Plan: Improved (4) Anemia due to antineoplastic chemotherapy Is this a current diagnosis for this admission?: Yes Plan: Hb down to 7.2 but hold on transfusion for now since we dealt with some overload w/ recent blood products (5) Thrombocytopenia Is this a current diagnosis for this admission?: Yes Plan: Improved (6) Neutropenia associated with mucositis due to antineoplastic therapy Is this a current diagnosis for this admission?: Yes Plan: Resolved, higher wt ct 2nd to recent neupogen given (7) Pain, neoplasm-related Is this a current diagnosis for this admission?: Yes Plan: Cont current regimen (8) Acute hypoxemic respiratory failure Is this a current diagnosis for this admission?: Yes Plan: Multifactorial, d/w cards (Dr. Soriano) this am, maybe also related to pulm HTN, they will look into starting sildafinil, pulm consult pending - Time Time Spent with patient: 35 or more minutes - Inpatient Certification Medical Necessity: Need for Nebulizer Therapy and Monitoring of Response, Risk of Complication if Not Cared For in Hospital
[2018-06-21] MEDS ORDERED: SENNOSIDES/DOCUSATE 8.6-50 MG 1 EACH TABLET PO PRN (09:15)
[2018-06-21] MEDS ORDERED: NA PHOS,M-B/NA PHOS,DI-BA (ADULT) 133 ML ENEMA PR ONE (10:00)
[2018-06-21] MEDS: NYSTATIN/DEXAMETH/DIPHEN SUSP 120 ML PO SCH ×4 (10:20→22:48)
[2018-06-21] MEDS: DOCUSATE SODIUM 100 MG CAPSULE PO SCH ×2 (10:21→22:47)
[2018-06-21] MEDS: OXYCODONE HCL SR 40 MG TABLET PO SCH ×2 (10:21→23:48)
[2018-06-21] MEDS: DILTIAZEM HCL 180 MG CAPSULE.CR PO SCH ×2 (10:21→22:46)
[2018-06-21] MEDS: APIXABAN 5 MG TABLET PO SCH ×2 (10:21→22:47)
[2018-06-21] MEDS: CLOTRIMAZOLE/BETAMETHASONE DIP CREAM 15 GM TOP SCH ×2 (10:22→19:15)
[2018-06-21] MEDS: SILDENAFIL CITRATE 20 MG TABLET PO SCH ×2 (12:57→19:26)
--- NOTE | 2018-06-21 13:26 | RADIOLOGY REPORT (SQ) ---
EXAM DESCRIPTION: CHEST 2 VIEWS COMPLETED DATE/TIME: 06/21/2018 1:18 pm REASON FOR STUDY: PERSISTENT HYPOXIA RECENT PE (TO BE READ WITH VQ SCAN COMPARISON: CT dated 06/19/2018. EXAM PARAMETERS: NUMBER OF VIEWS: two views TECHNIQUE: Digital Frontal and Lateral radiographic views of the chest acquired. RADIATION DOSE: NA LIMITATIONS: none FINDINGS: LUNGS AND PLEURA: Patchy scattered airspace disease throughout both lungs. Right pleural effusion/pleural thickening. MEDIASTINUM AND HILAR STRUCTURES: No masses or contour abnormalities. HEART AND VASCULAR STRUCTURES: Heart normal size. No evidence for failure. BONES: No acute findings. HARDWARE: Surgical anastomosis in the right hilum. OTHER: No other significant finding. IMPRESSION: PATCHY AIRSPACE DISEASE THROUGHOUT BOTH LUNGS. RIGHT PLEURAL EFFUSION VERSUS PLEURAL TH ICKENING. SIMILAR APPEARANCE TO THE PRIOR CT. TECHNICAL DOCUMENTATION: JOB ID: [id number] [employer]- All Rights Reserved Reading location - IP/workstation name: [email or web address]
--- NOTE | 2018-06-21 13:45 | PDOC CONSULTATION ---
Consultation Consult Date: 06/21/18 Attending physician:: SADIE MCCRAY Consult reason:: Hypoxia History of Present Illness Admission Date/PCP: 06/07/18 01:33 SADIE MCCRAY MD History of Present Illness: MEG MONTGOMERY is a 73 year old male non-small cell lung cancer status post surgery and chemotherapy was noted to be increasing short of breath and subsequent CTA showed large PE he is anticoagulated however due to the chemotherapy his platelets dropped and anticoagulation was discontinued frequently being reinitiated somewhat better he still remains hypoxic and oxygen dependent. He had not used oxygen prior to admission is approximately half [id number] history but has not smoked since his initial diagnosis of malignancy denies hemoptysis PPD is negative dates unknown no history chronic lung disease as a child or adolescent missed exposure to passive smoke as a child as well as an adult denies occupational exposure to potential respiratory toxins. He has no pets and no recent travel he carries occasional tightness in his chest sleeps on 2-3 pillows no PND occasional nocturnal cough no edema he admits to snoring but denies restless sleep nocturia 2-3 times per night he does he has some unrestful sleep and some daytime somnolence. 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 Denies: Crohn's Disease, Ulcerative Colitis Musculoskeltal Medical History: Denies: Arthritis Skin Medical History: Denies: Psoriasis Psychiatric Medical History: Denies: Alcohol Dependency, Depression Traumatic Medical History: Denies: Gunshot Wound, Pneumothorax, Stab Wound Hematology: Denies: Anemia Infectious Medical History: Denies: Hepatitis B, Hepatitis C Past Surgical History Past Surgical History: Reports: Cholecystectomy - Lung surgery and gastric surgery, Other Social History Information Source: Patient, Relative, [facility] Records Lives with: Family Smoking Status: Former Smoker Cigarettes Packs Per Day: 1 Number of Years Smokin Last Time Smoked: 40 yrs ago Frequency of Alcohol Use: None Hx Recreational Drug Use: No Drugs: None Hx Prescription Drug Abuse: No Do you have pets?: No Have you had any respiratory illnesses as a child?: No Have you been exposed to any sick contacts recently?: No Have you had any recent respiratory illnesses?: No Have you travelled outside of [place] in the past 12 months?: No - Advance Directive Resuscitation Status: Full Code Family History Family History: Hypertension, Malignancy Parental Family History Reviewed: Yes Children Family History Reviewed: Yes Sibling(s) Family History Reviewed.: Yes Medication/Allergy Home Medications: Atenolol [Tenormin 50 mg Tablet] 50 mg PO DAILY 06/07/18 Atorvastatin Calcium [Lipitor 40 mg Tablet] 40 mg PO QHS 06/07/18 Fluticasone/Umeclidin/Vilanter [Trelegy 100-62.5-25 Mcg Ellipta 14 Dose/Dpi] 1 puff IH DAILY 06/07/18 Ipratropium/Albuterol Sulfate [Iprat-Albut 0.5-3(2.5) mg/3 ml] 3 ml NEB Q4HP PRN 06/07/18 Losartan/Hydrochlorothiazide [Hyzaar 100-25 Tablet] 1 tab PO DAILY 06/07/18 Apixaban [Eliquis 5 mg Tablet] 5 mg PO Q12 #60 tablet 06/19/18 Oxycodone HCl [Oxycontin Sr 40 mg Tablet] 40 mg PO Q12 tab.sr.12h 06/19/18 Allergies/Adverse Reactions: No Known Allergies Allergy (Verified 04/27/14 21:43) Review of Systems Constitutional: PRESENT: fatigue, weakness. ABSENT: chills, fever(s), night sweats Eyes: ABSENT: visual disturbances Nose, Mouth, and Throat: ABSENT: mouth pain, sore throat Cardiovascular: PRESENT: dyspnea on exertion, orthropnea Respiratory: PRESENT: dyspnea. ABSENT: hemoptysis Gastrointestinal: PRESENT: constipation, heartburn, nausea. ABSENT: abdominal pain, bloating, coffee ground emesis, diarrhea, hematemesis, hematochezia, vomiting Genitourinary: ABSENT: dysuria, hematuria Musculoskeletal: ABSENT: deformity, joint swelling Integumentary: ABSENT: pruritus, rash Neurological: ABSENT: abnormal speech, focal weakness, frequent falls, memory loss Psychiatric: ABSENT: hallucinations, homidical ideation, suicidal ideation Endocrine: ABSENT: cold intolerance, heat intolerance Hematologic/Lymphatic: ABSENT: easy bruising Allergic/Immunologic: ABSENT: seasonal rhinorrhea Physical Exam Vital Signs: Temp Pulse Resp BP Pulse Ox 98.1 F 90 22 H 142/63 H 92 06/21/18 12:07 06/21/18 12:07 06/21/18 12:07 06/21/18 12:07 06/21/18 12:07 Intake & Output 06/20/18 06/21/18 06/22/18 06:59 06:59 06:59 Intake Total 2172 693 222 Output Total 125 100 Balance 2047 593 222 Weight 95.1 kg 93.3 kg General appearance: PRESENT: no acute distress, cooperative, disheveled Head exam: PRESENT: atraumatic, normocephalic Eye exam: PRESENT: conjunctiva pale, EOMI. ABSENT: nystagmus, scleral icterus Mouth exam: PRESENT: dry mucosa, neck supple, tongue midline Teeth exam: PRESENT: poor dentation Neck exam: ABSENT: carotid bruit, JVD, lymphadenopathy, thyromegaly, tracheal deviation, tracheostomy Respiratory exam: PRESENT: decreased breath sounds, prolonged expiratory phas, rales, rhonchi, unlabored. ABSENT: retraction, stridor, tachypnea Cardiovascular exam: PRESENT: RRR, +S1, +S2 Pulses: PRESENT: normal radial pulses GI/Abdominal exam: PRESENT: soft. ABSENT: tenderness Extremities exam: ABSENT: calf tenderness, clubbing, joint swelling Musculoskeletal exam: ABSENT: deformity, dislocation Neurological exam: PRESENT: awake Psychiatric exam: PRESENT: flat affect Skin exam: PRESENT: dry, warm Results Laboratory Results: 06/21/18 06:17 06/18/18 05:40 06/21/18 06:17 WBC 12.9 H RBC 2.37 L Hgb 7.2 L Hct 21.0 L MCV 89 MCH 30.3 MCHC 34.2 RDW 16.0 H Plt Count 107 L 06/07/18 06/07/18 06/07/18 02:52 02:52 02:52 Creatine Kinase < 20 L CK-MB (CK-2) 0.44 Troponin I 0.129 NT-Pro-B Natriuret Pep 1190 H 06/07/18 06/07/18 06/07/18 08:50 08:50 15:00 Creatine Kinase < 20 L < 20 L CK-MB (CK-2) 0.40 Troponin I 0.109 NT-Pro-B Natriuret Pep 06/07/18 15:00 Creatine Kinase CK-MB (CK-2) 0.39 Troponin I 0.094 NT-Pro-B Natriuret Pep Impressions: Esophagus X-Ray 06/10/18 00:00 IMPRESSION: PROGRESSION OF THE DISTAL ESOPHAGEAL NARROWING WHICH NOW STARTS APPROXIMATELY 9 TO 10 CM ABOVE THE GE JUNCTION. 12 MM BARIUM TABLET DOES PERSIST IN THIS AREA THROUGHOUT THE PROCEDURE. SMALL HIATAL HERNIA AND GASTROESOPHAGEAL REFLUX IS AGAIN SEEN. Chest/Abdomen CTA 06/19/18 00:00 IMPRESSION: New patchy ground-glass opacity throughout both upper lobes worrisome for pulmonary edema or pneumonia Tiny filling defects in the right lower lobe and left lower lobe pulmonary arteries, less prominent than on 06/06/2018. These are probably resolving emboli. Chest X-Ray 06/21/18 12:45 IMPRESSION: PATCHY AIRSPACE DISEASE THROUGHOUT BOTH LUNGS. RIGHT PLEURAL EFFUSION VERSUS PLEURAL THICKENING. SIMILAR APPEARANCE TO THE PRIOR CT. Assessment & Plan - Diagnosis (1) Acute hypoxemic respiratory failure Is this a current diagnosis for this admission?: Yes (2) Acute pulmonary embolism Qualifiers: Pulmonary embolism type: other Acute cor pulmonale presence: without acute cor pulmonale Qualified Code(s): I26.99 - Other pulmonary embolism without acute cor pulmonale Is this a current diagnosis for this admission?: Yes Plan: Initial treatment aborted due to pancytopenia currently re-anticoagulated (3) Esophageal stricture Is this a current diagnosis for this admission?: Yes Plan: Suspect some component of chronic aspiration (4) Primary adenocarcinoma of lower lobe of right lung Is this a current diagnosis for this admission?: Yes Plan: As per oncology (5) Atrial flutter Qualifiers: Atrial flutter type: atypical Qualified Code(s): I48.4 - Atypical atrial flutter Is this a current diagnosis for this admission?: Yes (6) Pulmonary cavitary lesion Is this a current diagnosis for this admission?: Yes
--- NOTE | 2018-06-21 14:25 | RADIOLOGY REPORT (SQ) ---
EXAM DESCRIPTION: NM LUNG VENT/PERF SCAN COMPLETED DATE/TIME: 06/21/2018 2:09 pm REASON FOR STUDY: Persistent hypoxia recent pe COMPARISON: Chest radiograph 06/21/2018 RADIONUCLIDE AND DOSE: 5 millicuries TC-99m MAA Intravenous 30 millicuries TC-99m DTPA Inhaled aerosol TECHNIQUE: Eight views of the lungs acquired post ventilation of DTPA aerosol. Eight matching views of the lungs acquired following injection of MAA. LIMITATIONS: None. FINDINGS: VENTILATION: Slightly heterogeneous. Reduced volume in the right lung compared to the lef t. PERFUSION: Slightly heterogeneous. Consistent with marked chronic changes seen on radiographs. OTHER: No other significant finding. IMPRESSION: Indeterminate probability of pulmonary embolus in the setting of marked chronic lung scott nges. TECHNICAL DOCUMENTATION: JOB ID: [id number] [email or web address]- All Rights Reserved Reading location - IP/workstation name: [email or web address]
[2018-06-21] MEDS: FLUTICASONE/UMECLIDIN/VILANTER 100-62.5-25 MCG/DOSE IH SCH (15:39)
--- NOTE | 2018-06-21 21:27 | PDOC PROGRESS REPORT ---
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, noninvasive positive pressure ventilation was recommended for home use, he will be discharged home tomorrow with positive pressure ventilation and oxygen Reason For Visit: BILATERAL PULMONARY EMBOLISM,ADENOCARCINOMA Physical Exam Vital Signs: Temp Pulse Resp BP Pulse Ox 98.4 F 87 20 112/46 L 100 06/21/18 20:02 06/21/18 20:02 06/21/18 20:02 06/21/18 20:02 06/21/18 20:02 Intake & Output 06/20/18 06/21/18 06/22/18 06:59 06:59 06:59 Intake Total 2172 693 462 Output Total 125 100 Balance 2047 593 462 Weight 95.1 kg 93.3 kg General appearance: PRESENT: no acute distress Eye exam: PRESENT: PERRLA Respiratory exam: PRESENT: rhonchi Cardiovascular exam: PRESENT: +S1, +S2 GI/Abdominal exam: PRESENT: soft Neurological exam: PRESENT: alert Results Laboratory Results: 06/21/18 06:17 06/18/18 05:40 06/21/18 06:17 WBC 12.9 H RBC 2.37 L Hgb 7.2 L Hct 21.0 L MCV 89 MCH 30.3 MCHC 34.2 RDW 16.0 H Plt Count 107 L 06/07/18 06/07/18 06/07/18 02:52 02:52 02:52 Creatine Kinase < 20 L CK-MB (CK-2) 0.44 Troponin I 0.129 NT-Pro-B Natriuret Pep 1190 H 06/07/18 06/07/18 06/07/18 08:50 08:50 15:00 Creatine Kinase < 20 L < 20 L CK-MB (CK-2) 0.40 Troponin I 0.109 NT-Pro-B Natriuret Pep 06/07/18 15:00 Creatine Kinase CK-MB (CK-2) 0.39 Troponin I 0.094 NT-Pro-B Natriuret Pep Impressions: Esophagus X-Ray 06/10/18 00:00 IMPRESSION: PROGRESSION OF THE DISTAL ESOPHAGEAL NARROWING WHICH NOW STARTS APPROXIMATELY 9 TO 10 CM ABOVE THE GE JUNCTION. 12 MM BARIUM TABLET DOES PERSIST IN THIS AREA THROUGHOUT THE PROCEDURE. SMALL HIATAL HERNIA AND GASTROESOPHAGEAL REFLUX IS AGAIN SEEN. Chest/Abdomen CTA 06/19/18 00:00 IMPRESSION: New patchy ground-glass opacity throughout both upper lobes worrisome for pulmonary edema or pneumonia Tiny filling defects in the right lower lobe and left lower lobe pulmonary arteries, less prominent than on 06/06/2018. These are probably resolving emboli. Lung Scan-VQ NM 06/21/18 11:37 IMPRESSION: Indeterminate probability of pulmonary embolus in the setting of marked chronic lung changes. Chest X-Ray 06/21/18 12:45 IMPRESSION: PATCHY AIRSPACE DISEASE THROUGHOUT BOTH LUNGS. RIGHT PLEURAL EFFUSION VERSUS PLEURAL THICKENING. SIMILAR APPEARANCE TO THE PRIOR CT. 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 Is this a current diagnosis for this admission?: Yes (6) Esophageal stricture Is this a current diagnosis for this admission?: Yes (7) Anemia Qualifiers: Anemia type: other cause Other causes of anemia: antineoplastic chemotherapy Qualified Code(s): D64.81 - Anemia due to antineoplastic chemotherapy; T45.1X5A - Adverse effect of antineoplastic and immunosuppressive drugs, initial encounter; T45.1X5A - Adverse effect of antineoplastic and immunosuppressive drugs, initial encounter Is this a current diagnosis for this admission?: Yes (8) Pancytopenia Is this a current diagnosis for this admission?: Yes (9) Cellulitis, leg Qualifiers: Laterality: left Qualified Code(s): L03.116 - Cellulitis of left lower limb Is this a current diagnosis for this admission?: Yes (10) Acute hypoxemic respiratory failure Is this a current diagnosis for this admission?: Yes (12) Anemia due to antineoplastic chemotherapy Is this a current diagnosis for this admission?: Yes (13) PSVT (paroxysmal supraventricular tachycardia) Is this a current diagnosis for this admission?: Yes (14) Pancytopenia due to antineoplastic chemotherapy Is this a current diagnosis for this admission?: Yes (15) Pulmonary cavitary lesion Is this a current diagnosis for this admission?: Yes (16) Pulmonary edema Qualifiers: Chronicity: acute Qualified Code(s): J81.0 - Acute pulmonary edema Is this a current diagnosis for this admission?: Yes
[2018-06-21] MEDS: LEVOFLOXACIN 750 MG TABLET PO SCH (22:47)
[2018-06-22 05:35] LABS: HEMATOCRIT 21.6 % (37.9-51.0); MEAN CORPUSCULAR HEMOGLOBIN 29.9 pg (27.0-33.4); MEAN CORPUSCULAR HGB CONC 33.9 g/dL (32.0-36.0); MEAN CORPUSCULAR VOLUME 88 fl (80-97); PLATELET COUNT 114 10^3/uL (150-450); RED BLOOD COUNT 2.46 10^6/uL (4.35-5.55); RED CELL DISTRIBUTION WIDTH 16.1 % (11.5-14.0); WHITE BLOOD COUNT 11.4 10^3/uL (4.0-10.5)
[2018-06-22 05:38] LABS: HEMOGLOBIN 7.3 g/dL (13.5-17.0)
[2018-06-22] MEDS: HYDROMORPHONE HCL INJ/PF 2 MG/ML AMPULE IV PRN (06:33)
--- NOTE | 2018-06-22 07:53 | PDOC PROGRESS REPORT ---
Subjective Progress Note for:: 06/22/18 Subjective:: No acute events overnight, he had oximeter placed on and 02 sat improved on 6L, he was able to keep up his sats. Dr. Soriano added Sildafinil to his regimen for severe pulm HTN. Reason For Visit: BILATERAL PULMONARY EMBOLISM,ADENOCARCINOMA Physical Exam Vital Signs: Temp Pulse Resp BP Pulse Ox 97.8 F 62 17 133/59 H 96 06/22/18 03:37 06/22/18 03:37 06/22/18 03:37 06/22/18 03:37 06/22/18 03:37 Intake & Output 06/21/18 06/22/18 06/23/18 06:59 06:59 06:59 Intake Total 693 462 Output Total 100 200 Balance 593 262 Weight 93.3 kg 92.3 kg General appearance: PRESENT: no acute distress, well-developed, well-nourished Head exam: PRESENT: atraumatic, normocephalic Eye exam: PRESENT: conjunctiva pink, EOMI, PERRLA. ABSENT: scleral icterus Ear exam: PRESENT: normal external ear exam Mouth exam: PRESENT: moist, tongue midline Neck exam: ABSENT: carotid bruit, JVD, lymphadenopathy, thyromegaly Respiratory exam: PRESENT: clear to auscultation jim. ABSENT: rales, rhonchi, wheezes Cardiovascular exam: PRESENT: RRR. ABSENT: diastolic murmur, rubs, systolic murmur Pulses: PRESENT: normal dorsalis pedis pul Vascular exam: PRESENT: normal capillary refill GI/Abdominal exam: PRESENT: normal bowel sounds, soft. ABSENT: distended, guarding, mass, organolmegaly, rebound, tenderness Rectal exam: PRESENT: deferred Extremities exam: PRESENT: full ROM. ABSENT: calf tenderness, clubbing, pedal edema Neurological exam: PRESENT: alert, awake, oriented to person, oriented to place , oriented to time, oriented to situation, CN II-XII grossly intact. ABSENT: motor sensory deficit Psychiatric exam: PRESENT: appropriate affect, normal mood. ABSENT: homicidal ideation, suicidal ideation Skin exam: PRESENT: dry, intact, warm. ABSENT: cyanosis, rash Results Laboratory Results: 06/22/18 05:19 06/18/18 05:40 06/22/18 05:19 WBC 11.4 H RBC 2.46 L Hgb 7.3 L Hct 21.6 L MCV 88 MCH 29.9 MCHC 33.9 RDW 16.1 H Plt Count 114 L 06/07/18 06/07/18 06/07/18 02:52 02:52 02:52 Creatine Kinase < 20 L CK-MB (CK-2) 0.44 Troponin I 0.129 NT-Pro-B Natriuret Pep 1190 H 06/07/18 06/07/18 06/07/18 08:50 08:50 15:00 Creatine Kinase < 20 L < 20 L CK-MB (CK-2) 0.40 Troponin I 0.109 NT-Pro-B Natriuret Pep 06/07/18 15:00 Creatine Kinase CK-MB (CK-2) 0.39 Troponin I 0.094 NT-Pro-B Natriuret Pep Impressions: Esophagus X-Ray 06/10/18 00:00 IMPRESSION: PROGRESSION OF THE DISTAL ESOPHAGEAL NARROWING WHICH NOW STARTS APPROXIMATELY 9 TO 10 CM ABOVE THE GE JUNCTION. 12 MM BARIUM TABLET DOES PERSIST IN THIS AREA THROUGHOUT THE PROCEDURE. SMALL HIATAL HERNIA AND GASTROESOPHAGEAL REFLUX IS AGAIN SEEN. Chest/Abdomen CTA 06/19/18 00:00 IMPRESSION: New patchy ground-glass opacity throughout both upper lobes worrisome for pulmonary edema or pneumonia Tiny filling defects in the right lower lobe and left lower lobe pulmonary arteries, less prominent than on 06/06/2018. These are probably resolving emboli. Lung Scan-VQ NM 06/21/18 11:37 IMPRESSION: Indeterminate probability of pulmonary embolus in the setting of marked chronic lung changes. Chest X-Ray 06/21/18 12:45 IMPRESSION: PATCHY AIRSPACE DISEASE THROUGHOUT BOTH LUNGS. RIGHT PLEURAL EFFUSION VERSUS PLEURAL THICKENING. SIMILAR APPEARANCE TO THE PRIOR CT. Assessment & Plan - Diagnosis (1) Acute pulmonary embolism Qualifiers: Pulmonary embolism type: other Acute cor pulmonale presence: without acute cor pulmonale Qualified Code(s): I26.99 - Other pulmonary embolism without acute cor pulmonale Is this a current diagnosis for this admission?: Yes Plan: Cont eliquis (2) Lung cancer Qualifiers: Laterality: right Lung location: upper lobe of lung Qualified Code(s): C34.11 - Malignant neoplasm of upper lobe, right bronchus or lung Is this a current diagnosis for this admission?: Yes Plan: Will delay next chemo to allow further overall recovery (3) Pancytopenia due to antineoplastic chemotherapy Is this a current diagnosis for this admission?: Yes Plan: improving (4) Anemia due to antineoplastic chemotherapy Is this a current diagnosis for this admission?: Yes Plan: Will likely add EPO as outpt, will not transfuse as hb staying above 7 b/c of concern of fluid overload (5) Thrombocytopenia Is this a current diagnosis for this admission?: Yes (6) Neutropenia associated with mucositis due to antineoplastic therapy Is this a current diagnosis for this admission?: Yes Plan: Resolved (7) Pain, neoplasm-related Is this a current diagnosis for this admission?: Yes Plan: Better yesterday did not require much IV dilaudid. (8) Acute hypoxemic respiratory failure Is this a current diagnosis for this admission?: Yes Plan: Multifactorial 2nd to lung damage from ca and recent therapy, b.l PEs, pulm HTN , pulm edema. This has been optimized over last 24 hours with help of pulmonology and cardiology. Trying to set up home 02 w/ now increased needs. Awaiting this. - Time Time Spent with patient: 35 or more minutes Disposition: Today had long discussion w/ pt and who I called, spent >35 m in discussion - Inpatient Certification Medical Necessity: Need for Nebulizer Therapy and Monitoring of Response
[2018-06-22] MEDS: SILDENAFIL CITRATE 20 MG TABLET PO SCH ×2 (09:13→13:25)
[2018-06-22] MEDS: DILTIAZEM HCL 180 MG CAPSULE.CR PO SCH (09:13)
[2018-06-22] MEDS: DOCUSATE SODIUM 100 MG CAPSULE PO SCH (09:13)
[2018-06-22] MEDS: APIXABAN 5 MG TABLET PO SCH (09:14)
[2018-06-22] MEDS: FLUTICASONE/UMECLIDIN/VILANTER 100-62.5-25 MCG/DOSE IH SCH (09:14)
[2018-06-22] MEDS: NYSTATIN/DEXAMETH/DIPHEN SUSP 120 ML PO SCH ×2 (09:14→13:25)
[2018-06-22] MEDS: OXYCODONE HCL SR 40 MG TABLET PO SCH (09:15)
[2018-06-22] MEDS: CLOTRIMAZOLE/BETAMETHASONE DIP CREAM 15 GM TOP SCH (13:21)
[2018-06-22] MEDS ORDERED: FLUTICASONE/UMECLIDIN/VILANTER 100-62.5-25 MCG/DOSE IH SCH (14:30)
[2018-06-22] MEDS ORDERED: ATENOLOL 50 MG TABLET PO SCH (14:30)
[2018-06-22] MEDS ORDERED: IPRATROPIUM/ALBUTEROL 0.5-2.5 MG/3 ML AMPUL NEB PRN (14:30)
[2018-06-22 14:37] VITALS: BP 135/69
--- NOTE | 2018-06-22 14:54 | PDOC DISCHARGE SUMMARY ---
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 Is this a current diagnosis for this admission?: Yes (6) Esophageal stricture Is this a current diagnosis for this admission?: Yes (7) Anemia Is this a current diagnosis for this admission?: Yes (8) Pancytopenia Is this a current diagnosis for this admission?: Yes (9) Cellulitis, leg Is this a current diagnosis for this admission?: Yes (10) Acute hypoxemic respiratory failure Is this a current diagnosis for this admission?: Yes (11) Secondary pulmonary arterial hypertension Is this a current diagnosis for this admission?: Yes (12) Anemia due to antineoplastic chemotherapy Is this a current diagnosis for this admission?: Yes (13) PSVT (paroxysmal supraventricular tachycardia) Is this a current diagnosis for this admission?: Yes (14) Pancytopenia due to antineoplastic chemotherapy Is this a current diagnosis for this admission?: Yes (15) Pulmonary cavitary lesion Is this a current diagnosis for this admission?: Yes (16) Pulmonary edema Is this a current diagnosis for this admission?: Yes - Additional Information Resuscitation Status: Full Code Discharge Diet: As Tolerated, Cardiac Discharge Activity: Activity As Tolerated, Balance Activity w/Rest Prescriptions: Apixaban [Eliquis 5 mg Tablet] 5 mg PO Q12 #60 tablet Home Medications: Atenolol [Tenormin 50 mg Tablet] 50 mg PO DAILY 06/07/18 Atorvastatin Calcium [Lipitor 40 mg Tablet] 40 mg PO QHS 06/07/18 Fluticasone/Umeclidin/Vilanter [Trelegy 100-62.5-25 Mcg Ellipta 14 Dose/Dpi] 1 puff IH DAILY 06/07/18 Ipratropium/Albuterol Sulfate [Iprat-Albut 0.5-3(2.5) mg/3 ml] 3 ml NEB Q4HP PRN 06/07/18 Losartan/Hydrochlorothiazide [Hyzaar 100-25 Tablet] 1 tab PO DAILY 06/07/18 Apixaban [Eliquis 5 mg Tablet] 5 mg PO Q12 #60 tablet 06/19/18 Oxycodone HCl [Oxycontin Sr 40 mg Tablet] 40 mg PO Q12 tab.sr.12h 06/19/18 History of Present Illness History of Present Illness: MEG MONTGOMERY is a 73 year old male, He has a history of recurrent adenocarcinoma of the lung presently on active chemotherapy, he came to the emergency room last night for evaluation of acute onset shortness of breath. In the emergency room CTA chest was done, it demonstrated mild worsening of interstitial thickening particularly involving the lingula and the left lower lobe. The interstitial thickening with nodularity involving the right lung appears grossly stable. Again noted is a 3.9 x 3.4 cm cavitary lesion within the right lower lobe is also demonstrated filling defects within the distal right main pulmonary artery extending into the segmental branches including the medial segmental, anterior basal and posterior basal segmental arteries. There are also filling defects within the distal left main pulmonary artery with thrombus extending into the basal part Hospital Course Hospital Course: Patient was admitted for the management of bilateral pulmonary embolism with a background of lung cancer. Hospital course was complicated with pancytopenia secondary to chemotherapy, patient on active chemotherapy before he developed pulmonary embolism bilaterally. He was treated with Eliquis, this was held multiple times because of the severe thrombocytopenia. He required blood transfusion with packed red blood cells, platelet he also was given Neupogen. He also had acute hypoxemic respiratory failure requiring oxygen supplementation via nasal cannula. He was seen by pulmonary, noninvasive positive pressure ventilation with trilogy was recommended he was also seen by oncology Dr. Chen because of his underlying lung cancer. He was also seen by cardiology Dr. Salgado because he had episode of SVT. He has secondary pulmonary hypertension due to bilateral pulmonary embolism, hypoxemia. A repeat CTA chest was done because patient could not maintain adequate oxygen saturation on 4 L of oxygen, the repeat CTA chest showed some regression of the initial pulmonary embolism there was pulmonary edema versus pneumonia on the CT scan, he was treated for both. The prognosis overall is very poor in this patient Physical Exam Vital Signs: Temp Pulse Resp BP Pulse Ox 97.7 F 58 L 17 135/69 H 98 06/22/18 14:33 06/22/18 14:33 06/22/18 14:33 06/22/18 14:33 06/22/18 14:33 Intake & Output 06/21/18 06/22/18 06/23/18 06:59 06:59 06:59 Intake Total 693 462 300 Output Total 100 200 400 Balance 593 262 -100 Weight 93.3 kg 92.3 kg General appearance: PRESENT: no acute distress Eye exam: PRESENT: PERRLA Respiratory exam: PRESENT: rhonchi Cardiovascular exam: PRESENT: +S1, +S2 GI/Abdominal exam: PRESENT: soft Neurological exam: PRESENT: alert Results Laboratory Results: 06/22/18 05:19 06/18/18 05:40 06/22/18 05:19 WBC 11.4 H RBC 2.46 L Hgb 7.3 L Hct 21.6 L MCV 88 MCH 29.9 MCHC 33.9 RDW 16.1 H Plt Count 114 L 06/07/18 06/07/18 06/07/18 02:52 02:52 02:52 Creatine Kinase < 20 L CK-MB (CK-2) 0.44 Troponin I 0.129 NT-Pro-B Natriuret Pep 1190 H 06/07/18 06/07/18 06/07/18 08:50 08:50 15:00 Creatine Kinase < 20 L < 20 L CK-MB (CK-2) 0.40 Troponin I 0.109 NT-Pro-B Natriuret Pep 06/07/18 15:00 Creatine Kinase CK-MB (CK-2) 0.39 Troponin I 0.094 NT-Pro-B Natriuret Pep Impressions: Esophagus X-Ray 06/10/18 00:00 IMPRESSION: PROGRESSION OF THE DISTAL ESOPHAGEAL NARROWING WHICH NOW STARTS APPROXIMATELY 9 TO 10 CM ABOVE THE GE JUNCTION. 12 MM BARIUM TABLET DOES PERSIST IN THIS AREA THROUGHOUT THE PROCEDURE. SMALL HIATAL HERNIA AND GASTROESOPHAGEAL REFLUX IS AGAIN SEEN. Chest/Abdomen CTA 06/19/18 00:00 IMPRESSION: New patchy ground-glass opacity throughout both upper lobes worrisome for pulmonary edema or pneumonia Tiny filling defects in the right lower lobe and left lower lobe pulmonary arteries, less prominent than on 06/06/2018. These are probably resolving emboli. Lung Scan-VQ NM 06/21/18 11:37 IMPRESSION: Indeterminate probability of pulmonary embolus in the setting of marked chronic lung changes. Chest X-Ray 06/21/18 12:45 IMPRESSION: PATCHY AIRSPACE DISEASE THROUGHOUT BOTH LUNGS. RIGHT PLEURAL EFFUSION VERSUS PLEURAL THICKENING. SIMILAR APPEARANCE TO THE PRIOR CT. Qualifiers - * PATIENT BEING DISCHARGED WITH ANY OF THE FOLLOWING DIAGNOSIS: No, VTE (PE or DVT ) VTE patient discharged on overlapping Therapy?: Yes
[2018-06-22] MEDS ORDERED: HYDROCHLOROTHIAZIDE 25 MG TABLET PO SCH (15:00)
[2018-06-22] MEDS ORDERED: LOSARTAN POTASSIUM 50 MG TABLET PO SCH (15:00)
--- NOTE | 2018-06-22 17:52 | PDOC PROGRESS REPORT ---
Subjective Progress Note for:: 06/22/18 Subjective:: About the same Reason For Visit: BILATERAL PULMONARY EMBOLISM,ADENOCARCINOMA Physical Exam Vital Signs: Temp Pulse Resp BP Pulse Ox 97.7 F 58 L 17 126/56 H 98 06/22/18 11:45 06/22/18 11:45 06/22/18 11:45 06/22/18 11:45 06/22/18 11:45 Intake & Output 06/21/18 06/22/18 06/23/18 06:59 06:59 06:59 Intake Total 693 462 300 Output Total 100 200 400 Balance 593 262 -100 Weight 93.3 kg 92.3 kg General appearance: PRESENT: no acute distress, cooperative, disheveled Head exam: PRESENT: atraumatic, normocephalic Eye exam: PRESENT: conjunctiva pale, EOMI. ABSENT: nystagmus, scleral icterus Mouth exam: PRESENT: dry mucosa, neck supple, tongue midline Neck exam: ABSENT: carotid bruit, JVD, lymphadenopathy, thyromegaly, tracheal deviation, tracheostomy Respiratory exam: PRESENT: decreased breath sounds, prolonged expiratory phas, rales, rhonchi, symmetrical, unlabored. ABSENT: retraction, stridor, tachypnea Cardiovascular exam: PRESENT: RRR, +S1, +S2, tachycardia Pulses: PRESENT: normal radial pulses GI/Abdominal exam: PRESENT: soft. ABSENT: tenderness Extremities exam: PRESENT: pedal edema. ABSENT: calf tenderness, clubbing, joint swelling Musculoskeletal exam: ABSENT: deformity, dislocation Neurological exam: PRESENT: awake Psychiatric exam: PRESENT: flat affect Skin exam: PRESENT: dry, warm Results Laboratory Results: 06/22/18 05:19 06/18/18 05:40 06/22/18 05:19 WBC 11.4 H RBC 2.46 L Hgb 7.3 L Hct 21.6 L MCV 88 MCH 29.9 MCHC 33.9 RDW 16.1 H Plt Count 114 L 06/07/18 06/07/18 06/07/18 02:52 02:52 02:52 Creatine Kinase < 20 L CK-MB (CK-2) 0.44 Troponin I 0.129 NT-Pro-B Natriuret Pep 1190 H 06/07/18 06/07/18 06/07/18 08:50 08:50 15:00 Creatine Kinase < 20 L < 20 L CK-MB (CK-2) 0.40 Troponin I 0.109 NT-Pro-B Natriuret Pep 06/07/18 15:00 Creatine Kinase CK-MB (CK-2) 0.39 Troponin I 0.094 NT-Pro-B Natriuret Pep Impressions: Esophagus X-Ray 06/10/18 00:00 IMPRESSION: PROGRESSION OF THE DISTAL ESOPHAGEAL NARROWING WHICH NOW STARTS APPROXIMATELY 9 TO 10 CM ABOVE THE GE JUNCTION. 12 MM BARIUM TABLET DOES PERSIST IN THIS AREA THROUGHOUT THE PROCEDURE. SMALL HIATAL HERNIA AND GASTROESOPHAGEAL REFLUX IS AGAIN SEEN. Chest/Abdomen CTA 06/19/18 00:00 IMPRESSION: New patchy ground-glass opacity throughout both upper lobes worrisome for pulmonary edema or pneumonia Tiny filling defects in the right lower lobe and left lower lobe pulmonary arteries, less prominent than on 06/06/2018. These are probably resolving emboli. Lung Scan-VQ NM 06/21/18 11:37 IMPRESSION: Indeterminate probability of pulmonary embolus in the setting of marked chronic lung changes. Chest X-Ray 06/21/18 12:45 IMPRESSION: PATCHY AIRSPACE DISEASE THROUGHOUT BOTH LUNGS. RIGHT PLEURAL EFFUSION VERSUS PLEURAL THICKENING. SIMILAR APPEARANCE TO THE PRIOR CT. Assessment & Plan - Diagnosis (1) Acute hypoxemic respiratory failure Is this a current diagnosis for this admission?: Yes Plan: Improving (2) Acute pulmonary embolism Qualifiers: Pulmonary embolism type: other Acute cor pulmonale presence: without acute cor pulmonale Qualified Code(s): I26.99 - Other pulmonary embolism without acute cor pulmonale Is this a current diagnosis for this admission?: Yes Plan: Initial treatment aborted due to pancytopenia currently re-anticoagulated (3) Esophageal stricture Is this a current diagnosis for this admission?: Yes (4) Primary adenocarcinoma of lower lobe of right lung Is this a current diagnosis for this admission?: Yes Plan: As per oncology (5) Atrial flutter Qualifiers: Atrial flutter type: atypical Qualified Code(s): I48.4 - Atypical atrial flutter Is this a current diagnosis for this admission?: Yes (6) Pulmonary cavitary lesion Is this a current diagnosis for this admission?: Yes
[2018-06-22] MEDS ORDERED: ATORVASTATIN CALCIUM 40 MG TABLET PO SCH (22:00)
[2018-06-23] MEDS ORDERED: (PENDING PHARMACY ID) (Losartan/Hydrochlorothiazide [Hyzaar 100-25 Tablet] 1 TAB) PO SCH (10:00)
== END 2018-06-22 15:23 | disposition home health service (06) | DRG 175 ==
LOC: ER 19:19 → EH 06-07 01:33 → 4W 06-07 10:46 → 3S 06-07 16:33
PROVIDERS: ADMIT Internal Medicine; ATTEND Internal Medicine
PROC: 30233N1 Transfusion of Nonautologous Red Blood Cells into Peripheral Vein, Percutaneous Approach (ICD-10-PCS; principal; 2018-06-11)
PROC: 30233R1 Transfusion of Nonautologous Platelets into Peripheral Vein, Percutaneous Approach (ICD-10-PCS; 2018-06-12)
PROC: 30233R1 Transfusion of Nonautologous Platelets into Peripheral Vein, Percutaneous Approach (ICD-10-PCS; 2018-06-14)
PROC: 3E02340 Introduction of Influenza Vaccine into Muscle, Percutaneous Approach (ICD-10-PCS; 2018-06-22)
DX: I26.99 Other pulmonary embolism without acute cor pulmonale (principal); D61.810 Antineoplastic chemotherapy induced pancytopenia; J81.0 Acute pulmonary edema; J96.01 Acute respiratory failure with hypoxia; J18.9 Pneumonia, unspecified organism; C34.31 Malignant neoplasm of lower lobe, right bronchus or lung; N17.9 Acute kidney failure, unspecified; I47.1 Supraventricular tachycardia; L03.116 Cellulitis of left lower limb; D64.81 Anemia due to antineoplastic chemotherapy; T45.1X5A Adverse effect of antineoplastic and immunosuppressive drugs, initial encounter; Z99.81 Dependence on supplemental oxygen; J44.9 Chronic obstructive pulmonary disease, unspecified; D69.59 Other secondary thrombocytopenia; E11.22 Type 2 diabetes mellitus with diabetic chronic kidney disease; I27.21 Secondary pulmonary arterial hypertension; E66.9 Obesity, unspecified; I12.9 Hypertensive chronic kidney disease with stage 1 through stage 4 chronic kidney disease, or unspecified chronic kidney disease; N18.9 Chronic kidney disease, unspecified; R13.10 Dysphagia, unspecified; K22.2 Esophageal obstruction; K59.00 Constipation, unspecified; G89.3 Neoplasm related pain (acute) (chronic); Z92.25 Personal history of immunosuppression therapy; Z79.899 Other long term (current) drug therapy; Z82.49 Family history of ischemic heart disease and other diseases of the circulatory system; Z79.84 Long term (current) use of oral hypoglycemic drugs; Z79.01 Long term (current) use of anticoagulants; Z79.02 Long term (current) use of antithrombotics/antiplatelets; R04.0 Epistaxis; Z87.891 Personal history of nicotine dependence; Z23 Encounter for immunization
CPT/HCPCS: 36415; 36430; 36600; 71045; 71046; 71275; 74220; 78582; 80048; 80053; 80061; 80076; 80307; 81001; 82140; 82150; 82550; 82553; 82607; 82728; 82746; 82803; 82962; 83036; 83540; 83550; 83690; 83735; 83880; 84100; 84439; 84443; 84484; 85025; 85027; 85045; 85384; 85610; 85730; 86850; 86900; 86901; 86920; 87040; 87086; 90686; 93005; 93010; 94667; 94799; 96372; 96374; 96375; 99291; A9540; A9567; J1170; J1200; J1442; J1650; J1940; J2270; J2405; J3475; J3490; J7030; P9016; P9035; Q9969

== ENCOUNTER 2018-06-22 23:12 | Inpatient (IN) | payer MEDICARE, BC ==
--- NOTE | 2018-06-22 23:32 | ER Document Report ---
ED General - General Stated Complaint: SHORTNESS OF BREATH Time Seen by Provider: 06/22/18 23:16 Notes: Patient is a 73-year-old male who presents with complaint of difficulty breathing. He has a history of adenocarcinoma. He is on chemotherapy. He is followed by Dr. Chen for his cancer. His primary care doctor is Dr. Mccray. He was recently diagnosed with a PE and was recently in the hospital because of difficulty breathing. He was in the hospital until today and was discharged home with supplemental oxygen. He says he was doing well until a few hours after going home he started getting worse. Got to the point where he could not breathe and he was in significant distress despite being on 5 L of oxygen at home. When paramedics arrived he was on 5 L of oxygen and his O2 saturation was 86%. Denies any fevers. He has no other complaints other than difficulty breathing. - Related Data Allergies/Adverse Reactions: No Known Allergies Allergy (Verified 04/27/14 21:43) Past Medical History - Social History Smoking Status: Former Smoker Frequency of alcohol use: None Drug Abuse: None Family History: Hypertension, Malignancy - Past Medical History Cardiac Medical History: Reports: Hx Hypertension Denies: Hx Coronary Artery Disease, Hx Heart Attack Pulmonary Medical History: Reports: Hx COPD Denies: Hx Asthma, Hx Bronchitis, Hx Pneumonia Neurological Medical History: Denies: Hx Cerebrovascular Accident, Hx Seizures Renal/ Medical History: Denies: Hx Peritoneal Dialysis Malignancy Medical History: Reports Hx Lung Cancer GI Medical History: Reports: Hx Gastroesophageal Reflux Disease, Hx Hiatal Hernia. Denies: Hx Crohn's Disease, Hx Ulcerative Colitis Musculoskeletal Medical History: Denies Hx Arthritis Skin Medical History: Denies Hx Psoriasis Psychiatric Medical History: Denies: Hx Depression Traumatic Medical History: Denies: Hx Gunshot Wound, Hx Pneumothorax Past Surgical History: Reports: Hx Cholecystectomy - Lung surgery and gastric surgery, Other - Immunizations Hx Diphtheria, Pertussis, Tetanus Vaccination: Yes Hx Pneumococcal Vaccination: 06/13/14 Review of Systems - Review of Systems Notes: My Normal Review Basic REVIEW OF SYSTEMS: CONSTITUTIONAL : Denies fever, chills, or sweats. Denies recent illness. EENT: Denies eye, ear, throat, or mouth pain or symptoms. Denies nasal or sinus congestion. CARDIOVASCULAR: Denies chest pain. RESPIRATORY: Difficulty breathing GASTROINTESTINAL: Denies abdominal pain. Denies nausea, vomiting, or diarrhea. GENITOURINARY: Denies difficulty urinating, painful urination, burning, frequency, or blood in urine. MUSCULOSKELETAL: Denies neck or back pain or joint pain or swelling. SKIN: Denies rash or skin lesions. HEMATOLOGIC : Denies easy bruising or bleeding. LYMPHATIC: Denies swollen, enlarged glands. NEUROLOGICAL: Denies altered mental status or loss of consciousness. ALL OTHER SYSTEMS REVIEWED AND NEGATIVE. Physical Exam - Vital signs Vitals: Temp 97.8 F 06/22/18 23:16 - Notes Notes: General Appearance: Well nourished, alert, cooperative, moderate acute distress , no obvious discomfort. Vitals: reviewed, See vital signs table. Head: no swelling or tenderness to the head Eyes: PERRL, EOMI, Conjuctiva clear Mouth: No decreasd moisture Throat: No tonsillar inflammation, No airway obstruction, No lymphadenopathy Neck: Supple, no neck tenderness, No thyromegaly Lungs: Rhonchus breath sounds much worse than the right. some basilar rales. Accessory muscle use. Heart: Slightly tachycardic rate, Regular rythm, No murmur, no rub Abdomen: Normal BS, soft, No rigidity, No abdominal tenderness, No guarding, no rebound, no abdominal masses, no organomegaly Extremities: strength 5/5 in all extremities, good pulses in all extremities, no swelling or tenderness in the extremities Skin: warm, dry, appropriate color, no rash Neuro: speech clear, oriented x 3, normal affect, responds appropriately to questions. Course - Re-evaluation Re-evalutation: 06/23/18 00:44 Looking at the chest x-ray feel the patient may be a little bit worsening effusion on the right side. He did have some rhonchorous breath sounds but also had some rales in the bases. BiPAP helped him significantly. I will give a small dose of Lasix as I feel this might help. Patient is doing well in the BiPAP. He is not doing well when he switched over to nasal cannula. I did spoke with Dr. Mccray who agrees to admit the patient for further evaluation and treatment. I feel that the patient's long-term prognosis is probably not good with his underlying PEs as well as very poor lung function and cancer. Dictation of this chart was performed using voice recognition software; therefore, there may be some unintended grammatical errors. - Vital Signs Vital signs: Temp Pulse Resp BP Pulse Ox 97.8 F 20 96 06/22/18 23:16 06/22/18 23:26 06/22/18 23:26 - Laboratory Result Diagrams: 06/22/18 23:25 06/22/18 23:25 Laboratory results interpreted by me: 06/22/18 06/22/18 06/22/18 23:25 23:25 23:25 WBC 12.1 H RBC 2.98 L Hgb 9.0 L Hct 26.4 L RDW 16.2 H Band Neutrophils % 15 H Lymphocytes % (Manual) 10 L Metamyelocytes % 1 H Myelocytes % 2 H Abs Neuts (Manual) 9.8 H PT Direct Bilirubin 0.5 H Alkaline Phosphatase 210 H NT-Pro-B Natriuret Pep 2290 H Albumin 3.4 L 06/22/18 23:25 WBC RBC Hgb Hct RDW Band Neutrophils % Lymphocytes % (Manual) Metamyelocytes % Myelocytes % Abs Neuts (Manual) PT 21.5 H Direct Bilirubin Alkaline Phosphatase NT-Pro-B Natriuret Pep Albumin - EKG Interpretation by Me Additional EKG results interpreted by me: 06/22/18 23:45 EKG is reviewed and interpreted by me. EKG shows sinus tachycardia with a rate of 115 bpm. Associated bigeminy. ME interval is within normal range. QRS duration QTc intervals are prolonged. Patient does have a right bundle branch block which is unchanged comparison to previous EKG from June 20, 2018. Discharge - Discharge Clinical Impression: Respiratory distress Condition: Stable Disposition: ADMITTED INPATIENT Admitting Provider: Hospitalist Unit Admitted: IMCU Referrals: SADIE MCCRAY MD [Primary Care Provider] - Follow up as needed
[2018-06-22 23:38] LABS: HEMATOCRIT 26.4 % (37.9-51.0); MEAN CORPUSCULAR HEMOGLOBIN 30.1 pg (27.0-33.4); MEAN CORPUSCULAR VOLUME 89 fl (80-97); PLATELET COUNT 154 10^3/uL (150-450); RED BLOOD COUNT 2.98 10^6/uL (4.35-5.55); RED CELL DISTRIBUTION WIDTH 16.2 % (11.5-14.0); WHITE BLOOD COUNT 12.1 10^3/uL (4.0-10.5)
[2018-06-22 23:46] LABS: INTERNATIONAL RATION (INR) 1.77; PROTHROMBIN TIME 21.5 SEC (11.4-15.4)
[2018-06-22 23:47] LABS: PARTIAL THROMBOPLASTIN TIME 35.7 SEC (23.5-35.8)
--- NOTE | 2018-06-22 23:48 | RADIOLOGY REPORT (SQ) ---
XR CHEST 1 VIEW HISTORY: Dyspnea. COMPARISON: 06/21/2018 FINDINGS/IMPRESSION: Normal cardiomediastinal silhouette. Patchy airspace opacities throughout both lower lobes, slightly improved. Small right pleural effusion is unchanged. Opacified contrast is seen in the upper abdomen.
[2018-06-23 00:01] LABS: ABSOLUTE LYMPHOCYTES# (MANUAL) 1.3 10^3/uL (0.5-4.7); ABSOLUTE NEUTROPHILS# (MANUAL) 9.8 10^3/uL (1.7-8.2); BASOPHILS % (MANUAL) 0 % (0-2); EOSINOPHILS % (MANUAL) 0 % (0-6); LYMPHOCYTES % (MANUAL) 10 % (13-45); MONOCYTES % (MANUAL) 8 % (3-13); NUCLEATED RED BLOOD CELLS 1 /100 WBC (0); SEGMENTED NEUTROPHILS % (MAN) 63 % (42-78); TOTAL CELLS COUNTED 100
[2018-06-23 00:02] LABS: ALANINE AMINOTRANSFERASE 36 U/L (21-72); ALBUMIN 3.4 g/dL (3.5-5.0); ALKALINE PHOSPHATASE 210 U/L (38-126); ANION GAP 9 (5-19); ASPARTATE AMINO TRANSFERASE 54 U/L (17-59); BILIRUBIN,DIRECT 0.5 mg/dL (0.0-0.4); BILIRUBIN,TOTAL 1.1 mg/dL (0.2-1.3); BLOOD UREA NITROGEN 17 mg/dL (7-20); CALCIUM 10.1 mg/dL (8.4-10.2); CARBON DIOXIDE 28 mmol/L (22-30); CHLORIDE 101 mmol/L (98-107); GLUCOSE 109 mg/dL (75-110)
[2018-06-23 00:03] LABS: ANISOCYTOSIS 1+; PLATELET COMMENT ADEQUATE; PLATELET LARGE PRESENT; POLYCHROMASIA SLIGHT; TOXIC GRANULATION 1+; TOXIC VACUOLATION PRESENT
[2018-06-23 00:08] LABS: BAND NEUTROPHILS % (MANUAL) 15 % (3-5); METAMYELOCYTES % (MANUAL) 1 % (0); MYELOCYTES % (MANUAL) 2 % (0)
[2018-06-23] MEDS ORDERED: FUROSEMIDE INJ/PF 20 MG/2 ML SDV IV ONE (00:44)
--- NOTE | 2018-06-23 06:46 | EKG REPORT ---
SEVERITY:- ABNORMAL ECG - SINUS TACHYCARDIA SUPRAVENTRICULAR BIGEMINY RIGHT BUNDLE BRANCH BLOCK : Confirmed by: Shandra Salgado MD 23-Jun-2018 06:45:32
[2018-06-23] MEDS ORDERED: LOSARTAN POTASSIUM 50 MG TABLET PO SCH (10:00)
[2018-06-23] MEDS: LOSARTAN POTASSIUM 50 MG TABLET PO SCH (10:05)
[2018-06-23] MEDS: HYDROCHLOROTHIAZIDE 25 MG TABLET PO SCH (10:08)
[2018-06-23] MEDS: APIXABAN 5 MG TABLET PO SCH ×2 (10:08→22:36)
[2018-06-23] MEDS: ATENOLOL 50 MG TABLET PO SCH (10:08)
[2018-06-23] MEDS: FLUTICASONE/UMECLIDIN/VILANTER 100-62.5-25 MCG/DOSE IH SCH (10:09)
[2018-06-23] MEDS: OXYCODONE HCL SR 40 MG TABLET PO SCH ×2 (10:14→22:37)
[2018-06-23] MEDS: FUROSEMIDE INJ/PF 20 MG/2 ML SDV IV SCH ×2 (11:21→22:37)
[2018-06-23] MEDS: DILTIAZEM HCL 30 MG TABLET PO SCH ×2 (11:21→17:18)
[2018-06-23 11:32] LABS: PATH REVIEW PATHOLOGIST REVIEWED
--- NOTE | 2018-06-23 12:10 | PDOC PROGRESS REPORT ---
Subjective Progress Note for:: 06/23/18 Reason For Visit: RESPIRATORY DISTRESS At home per patient ran on oxygen and returned Physical Exam Vital Signs: Temp Pulse Resp BP Pulse Ox 98.4 F 106 H 23 H 137/72 H 92 06/23/18 07:40 06/23/18 07:40 06/23/18 08:00 06/23/18 07:40 06/23/18 11:27 Pulse Oximeter Continuous Start: 06/23/18 08: 26 Freq: RTQ4 Status: Active Document 06/23/18 11:27 LDA (Rec: 06/23/18 11:28 LDA [id number]) Pulse Oximetry Assessment Oxygen Saturation (92-100) 92 Oxygen Flow Rate (L/min) 6 Oxygen Delivery Method Nasal Cannula Fraction of Inspired Oxygen (FIO2) 44 Equipment Usage Equipment in Use Continuous SpO2 Machine # [id number] Intake & Output 06/22/18 06/23/18 06/24/18 06:59 06:59 06:59 Output Total 500 Balance -500 Weight 89.2 kg General appearance: PRESENT: no acute distress, cooperative, disheveled Head exam: PRESENT: atraumatic, normocephalic Eye exam: PRESENT: conjunctiva pale, EOMI. ABSENT: nystagmus, scleral icterus Mouth exam: PRESENT: dry mucosa, neck supple, tongue midline Neck exam: ABSENT: carotid bruit, JVD, lymphadenopathy, thyromegaly, tracheal deviation, tracheostomy Respiratory exam: PRESENT: decreased breath sounds, prolonged expiratory phas, rales, retraction, rhonchi, symmetrical, unlabored. ABSENT: stridor Cardiovascular exam: PRESENT: RRR, +S1, +S2 Pulses: PRESENT: normal radial pulses GI/Abdominal exam: PRESENT: soft. ABSENT: tenderness Extremities exam: PRESENT: pedal edema. ABSENT: calf tenderness, clubbing, full ROM, joint swelling Musculoskeletal exam: ABSENT: deformity, dislocation Neurological exam: PRESENT: alert, awake Psychiatric exam: PRESENT: normal mood - [id number] Skin exam: PRESENT: dry, warm Results Impressions: Chest X-Ray 06/22/18 23:25 FINDINGS/IMPRESSION: Normal cardiomediastinal silhouette. Patchy airspace opacities throughout both lower lobes, slightly improved. Small right pleural effusion is unchanged. Opacified contrast is seen in the upper abdomen. Assessment & Plan - Diagnosis (1) Acute hypoxemic respiratory failure Is this a current diagnosis for this admission?: Yes Plan: Proving with supplemental oxygen (2) Acute pulmonary embolism Is this a current diagnosis for this admission?: Yes Plan: Continue current anticoagulation (3) Anemia due to antineoplastic chemotherapy Is this a current diagnosis for this admission?: Yes (4) Esophageal stricture Plan: Following (5) Malignant neoplasm of lung Qualifiers: Is this a current diagnosis for this admission?: Yes Plan: As per oncology (6) Pulmonary cavitary lesion Is this a current diagnosis for this admission?: Yes Plan: Workup if/when clinically warranted
[2018-06-23] MEDS: IPRATROPIUM/ALBUTEROL 0.5-2.5 MG/3 ML AMPUL NEB PRN ×2 (15:46→21:05)
[2018-06-23] MEDS ORDERED: POLYETHYLENE GLYCOL 3350 POWDER 17 GM/1 PACKET PO PRN (17:26)
--- NOTE | 2018-06-23 21:24 | PDOC H&P ---
History of Present Illness Admission Date/PCP: 06/23/18 00:58 SADIE MCCRAY MD History of Present Illness: MEG MONTGOMERY is a 73 year old male, He was just discharged this morning, he came to the emergency room because of shortness of breath, my understanding was that the oxygen cylinder was empty and he needed to use oxygen therapy he came to emergency room for evaluation, hospital admission was advised Past Medical History Cardiac Medical History: Reports: Hypertension Pulmonary Medical History: Reports: Chronic Obstructive Pulmonary Disease (COPD) Malignancy Medical History: Reports: Lung Cancer GI Medical History: Reports: Gastroesophageal Reflux Disease, Hiatal Hernia Musculoskeltal Medical History: Denies: Arthritis Past Surgical History Past Surgical History: Reports: Cholecystectomy - Lung surgery and gastric surgery, Other Social History Smoking Status: Former Smoker Last Time Smoked: 2013 Frequency of Alcohol Use: None Hx Recreational Drug Use: No Drugs: None Hx Prescription Drug Abuse: No - Advance Directive Resuscitation Status: Full Code Family History Family History: Hypertension, Malignancy Parental Family History Reviewed: Yes Children Family History Reviewed: Yes Sibling(s) Family History Reviewed.: Yes Medication/Allergy Home Medications: Atenolol [Tenormin 50 mg Tablet] 50 mg PO DAILY 06/07/18 Atorvastatin Calcium [Lipitor 40 mg Tablet] 40 mg PO QHS 06/07/18 Fluticasone/Umeclidin/Vilanter [Trelegy 100-62.5-25 Mcg Ellipta 14 Dose/Dpi] 1 puff IH DAILY 06/07/18 Ipratropium/Albuterol Sulfate [Iprat-Albut 0.5-3(2.5) mg/3 ml] 3 ml NEB RTQ4HP PRN 06/07/18 Losartan/Hydrochlorothiazide [Hyzaar 100-25 Tablet] 1 tab PO DAILY 06/07/18 Apixaban [Eliquis 5 mg Tablet] 5 mg PO Q12 #60 tablet 06/19/18 Oxycodone HCl [Oxycontin Sr 40 mg Tablet] 40 mg PO Q12 tab.sr.12h 06/19/18 Diltiazem HCl [Cardizem 30 mg Tablet] 30 mg PO Q6 #120 tablet 06/24/18 Esomeprazole Magnesium [Nexium] 40 mg PO Q12H #180 capsule. 06/24/18 Allergies/Adverse Reactions: No Known Allergies Allergy (Verified 04/27/14 21:43) Review of Systems ROS unobtainable: Other Physical Exam Vital Signs: Temp Pulse Resp BP Pulse Ox 97.6 F 82 16 125/71 98 06/23/18 19:12 06/23/18 19:12 06/23/18 20:15 06/23/18 19:12 06/23/18 20:15 Pulse Oximeter Continuous Start: 06/23/18 08: 26 Freq: RTQ4 Status: Active Document 06/23/18 20:15 [facility] (Rec: 06/23/18 20:17 [facility] [id number]) Pulse Oximetry Assessment Oxygen Saturation (92-100) 98 Oxygen Delivery Method Bi-pap Fraction of Inspired Oxygen (FIO2) 30 Equipment Usage Equipment in Use Continuous SpO2 Machine # [id number] Intake & Output 06/22/18 06/23/18 06/24/18 06:59 06:59 06:59 Intake Total 318 Output Total 500 475 Balance -500 -157 Weight 89.2 kg General appearance: PRESENT: mild distress Eye exam: PRESENT: PERRLA Respiratory exam: PRESENT: decreased breath sounds Cardiovascular exam: PRESENT: +S1, +S2 Neurological exam: PRESENT: alert Results Impressions: Chest X-Ray 06/22/18 23:25 FINDINGS/IMPRESSION: Normal cardiomediastinal silhouette. Patchy airspace opacities throughout both lower lobes, slightly improved. Small right pleural effusion is unchanged. Opacified contrast is seen in the upper abdomen. Assessment & Plan - Diagnosis (1) Acute hypoxemic respiratory failure Is this a current diagnosis for this admission?: Yes (2) Malignant neoplasm of lung Qualifiers: Laterality: unspecified laterality Lung location: unspecified part of lung Qualified Code(s): C34.90 - Malignant neoplasm of unspecified part of unspecified bronchus or lung Is this a current diagnosis for this admission?: Yes
[2018-06-23] MEDS ORDERED: ATORVASTATIN CALCIUM 40 MG TABLET PO SCH (22:00)
--- NOTE | 2018-06-23 22:25 | EKG REPORT ---
SEVERITY:- ABNORMAL ECG - SINUS TACHYCARDIA RBBB AND LAFB : Confirmed by: Shandra Salgado MD 23-Jun-2018 22:24:50
[2018-06-24] MEDS: DILTIAZEM HCL 30 MG TABLET PO SCH ×4 (00:57→18:14)
--- NOTE | 2018-06-24 08:45 | PDOC CONSULTATION ---
Consultation Consult Date: 06/24/18 Consult reason:: Hematology Oncology Consultation was requested for patient with lung cancer and dyspnea. History of Present Illness Admission Date/PCP: 06/23/18 00:58 SADIE MCCRAY MD History of Present Illness: MEG MONTGOMERY is a 73 year old male who is well known to our service. He was recently discharged from this institution on 06/22/2018. He states that he was using a portable oxygen tank to get yunior, but he did not realize that it was low on oxygen. When he arrived home, the oxygen ran out and his home system had not yet valery set up. He states that he panicked and called EMS. He was brought back to the hospital and re-admitted the same day. Mr. Montgomery was originally diagnosed with Stage IA Right lung cancer in 2015 and underwent resection. He did well until 01/2018 when new biopsy proved metastatic lung cancer. He was started on a clinical trial which he did not tolerate well and then changed to traditional treatment with [place]/alim[place] and received day #1 of cycle #1 on 06/02/2018. Since that time, treatment has been on hold due to hospitalization and other issues. Today, patient states that he is feeling much better and he is hoping that they will let him go home later today. His oxygen at home has now been set up. Past Medical History Cardiac Medical History: Reports: Hypertension Denies: Coronary Artery Disease, Myocardial Infarction Pulmonary Medical History: Reports: Chronic Obstructive Pulmonary Disease (COPD) , Other - Lung Cancer Denies: Asthma, Bronchitis, Pneumonia Neurological Medical History: Denies: Seizures Malignancy Medical History: Reports: Lung Cancer GI Medical History: Reports: Gastroesophageal Reflux Disease, Hiatal Hernia Denies: Crohn's Disease, Ulcerative Colitis Musculoskeltal Medical History: Denies: Arthritis Skin Medical History: Denies: Psoriasis Psychiatric Medical History: Denies: Depression Traumatic Medical History: Denies: Gunshot Wound, Pneumothorax Hematology: Denies: Anemia Past Surgical History Past Surgical History: Reports: Cholecystectomy - Lung surgery and gastric surgery, Other Social History Smoking Status: Former Smoker Last Time Smoked: 2013 Frequency of Alcohol Use: None Hx Recreational Drug Use: No Drugs: None Hx Prescription Drug Abuse: No - Advance Directive Resuscitation Status: Full Code Family History Family History: Hypertension, Malignancy Parental Family History Reviewed: Yes - Mother of cancer at age 81. Father at 41 Children Family History Reviewed: No Sibling(s) Family History Reviewed.: Yes - 3 brothers and 2 sisters with cancer. Medication/Allergy Home Medications: Atenolol [Tenormin 50 mg Tablet] 50 mg PO DAILY 06/07/18 Atorvastatin Calcium [Lipitor 40 mg Tablet] 40 mg PO QHS 06/07/18 Fluticasone/Umeclidin/Vilanter [Trelegy 100-62.5-25 Mcg Ellipta 14 Dose/Dpi] 1 puff IH DAILY 06/07/18 Ipratropium/Albuterol Sulfate [Iprat-Albut 0.5-3(2.5) mg/3 ml] 3 ml NEB RTQ4HP PRN 06/07/18 Losartan/Hydrochlorothiazide [Hyzaar 100-25 Tablet] 1 tab PO DAILY 06/07/18 Apixaban [Eliquis 5 mg Tablet] 5 mg PO Q12 #60 tablet 06/19/18 Oxycodone HCl [Oxycontin Sr 40 mg Tablet] 40 mg PO Q12 tab.sr.12h 06/19/18 Allergies/Adverse Reactions: No Known Allergies Allergy (Verified 04/27/14 21:43) Review of Systems Constitutional: ABSENT: fever(s), headache(s) Eyes: ABSENT: visual disturbances Ears: ABSENT: hearing changes Nose, Mouth, and Throat: ABSENT: sore throat Cardiovascular: PRESENT: chest pain Respiratory: PRESENT: dyspnea Gastrointestinal: PRESENT: bloating Genitourinary: ABSENT: dysuria Musculoskeletal: ABSENT: back pain Integumentary: ABSENT: rash Neurological: PRESENT: weakness Psychiatric: PRESENT: anxiety Hematologic/Lymphatic: ABSENT: lymphadenopathy Physical Exam Vital Signs: Temp Pulse Resp BP Pulse Ox 98.6 F 77 20 113/69 99 06/24/18 07:42 06/24/18 07:42 06/24/18 07:42 06/24/18 07:42 06/24/18 07:42 Pulse Oximeter Continuous Start: 06/23/18 08: 26 Freq: RTQ4 Status: Active Document 06/24/18 04:00 [facility] (Rec: 06/24/18 05:16 [facility] [id number]) Pulse Oximetry Assessment Oxygen Saturation (92-100) 98 Oxygen Flow Rate (L/min) 4 Oxygen Delivery Method Nasal Cannula Fraction of Inspired Oxygen (FIO2) 36 Equipment Usage Equipment in Use Continuous SpO2 Machine # 11 Intake & Output 06/23/18 06/24/18 06/25/18 06:59 06:59 06:59 Intake Total 318 Output Total 500 1300 Balance -500 -982 Weight 89.2 kg 87.5 kg General appearance: PRESENT: no acute distress, obese Exam: 73 year old male. Head exam: PRESENT: normocephalic Eye exam: PRESENT: EOMI Mouth exam: PRESENT: tongue midline Neck exam: ABSENT: lymphadenopathy, tenderness Respiratory exam: PRESENT: clear to auscultation jim, unlabored Cardiovascular exam: PRESENT: RRR GI/Abdominal exam: PRESENT: soft. ABSENT: tenderness Extremities exam: PRESENT: other - TEDs in place. ABSENT: pedal edema Musculoskeletal exam: PRESENT: normal inspection Neurological exam: PRESENT: alert, awake Psychiatric exam: PRESENT: appropriate affect Focused psych exam: ABSENT: pressured speech, psychomotor agitation Skin exam: PRESENT: normal color Results Impressions: Chest X-Ray 06/22/18 23:25 FINDINGS/IMPRESSION: Normal cardiomediastinal silhouette. Patchy airspace opacities throughout both lower lobes, slightly improved. Small right pleural effusion is unchanged. Opacified contrast is seen in the upper abdomen. Status: Image reviewed by me Assessment & Plan - Diagnosis (1) Lung cancer Qualifiers: Laterality: right Lung location: upper lobe of lung Qualified Code(s): C34.11 - Malignant neoplasm of upper lobe, right bronchus or lung Is this a current diagnosis for this admission?: Yes Plan: I spoke with patient and his sister. I have explained that we prefer to wait another week or so and see how he is feeling after he is discharged from the hospital before discussing further cancer treatment. He agrees with this plan so that he may get a bit stronger before undergoing any further treatment. (2) Acute hypoxemic respiratory failure Is this a current diagnosis for this admission?: Yes Plan: Now resolved. Agree with plans for discharge. Will follow-up in our office. (3) Acute pulmonary embolism Is this a current diagnosis for this admission?: Yes Plan: Continue Eliquis 5 mg BID. - Plan Summary Plan Summary: Please call with any other concerns.
[2018-06-24] MEDS: HYDROCHLOROTHIAZIDE 25 MG TABLET PO SCH (09:38)
[2018-06-24] MEDS: ATENOLOL 50 MG TABLET PO SCH (09:38)
[2018-06-24] MEDS: APIXABAN 5 MG TABLET PO SCH (09:38)
[2018-06-24] MEDS: LOSARTAN POTASSIUM 50 MG TABLET PO SCH (09:39)
[2018-06-24] MEDS: FUROSEMIDE INJ/PF 20 MG/2 ML SDV IV SCH (09:39)
[2018-06-24] MEDS: OXYCODONE HCL SR 40 MG TABLET PO SCH (09:40)
[2018-06-24] MEDS: FLUTICASONE/UMECLIDIN/VILANTER 100-62.5-25 MCG/DOSE IH SCH (09:40)
--- NOTE | 2018-06-24 11:55 | PDOC CONSULTATION ---
Consultation Consult Date: 06/23/18 Attending physician:: SADIE MCCRAY Consult reason:: Tachycardia History of Present Illness Admission Date/PCP: 06/23/18 00:58 SADIE MCCRAY MD Patient complains of: Tachycardia History of Present Illness: MEG kenyon is a 73-year-old male who presents with complaint of difficulty breathing. He has a history of adenocarcinoma. He is on chemotherapy. He is followed by Dr. Chen for his cancer. His primary care doctor is Dr. Mccray. He was recently diagnosed with a PE and was recently in the hospital because of difficulty breathing. He was in the hospital until today and was discharged home with supplemental oxygen. He says he was doing well until a few hours after going home he started getting worse. Got to the point where he could not breathe and he was in significant distress despite being on 5 L of oxygen at home. When paramedics arrived he was on 5 L of oxygen and his O2 saturation was 86%. Denies any fevers. He has no other complaints other than difficulty breathing. This history obtained by the ER physician was reviewed and confirmed. Past Medical History Cardiac Medical History: Reports: Hypertension Denies: Coronary Artery Disease, Myocardial Infarction Pulmonary Medical History: Reports: Chronic Obstructive Pulmonary Disease (COPD) Denies: Asthma, Bronchitis, Pneumonia Neurological Medical History: Denies: Seizures Malignancy Medical History: Reports: Lung Cancer GI Medical History: Reports: Gastroesophageal Reflux Disease, Hiatal Hernia Denies: Crohn's Disease, Ulcerative Colitis Musculoskeltal Medical History: Denies: Arthritis Skin Medical History: Denies: Psoriasis Psychiatric Medical History: Denies: Depression Traumatic Medical History: Denies: Gunshot Wound, Pneumothorax Hematology: Denies: Anemia Past Surgical History Past Surgical History: Reports: Cholecystectomy - Lung surgery and gastric surgery, Other Social History Smoking Status: Former Smoker Last Time Smoked: 2013 Frequency of Alcohol Use: None Hx Recreational Drug Use: No Drugs: None Hx Prescription Drug Abuse: No - Advance Directive Resuscitation Status: Full Code Family History Family History: Hypertension, Malignancy Parental Family History Reviewed: Yes Children Family History Reviewed: Yes Sibling(s) Family History Reviewed.: Yes Medication/Allergy Home Medications: Atenolol [Tenormin 50 mg Tablet] 50 mg PO DAILY 06/07/18 Atorvastatin Calcium [Lipitor 40 mg Tablet] 40 mg PO QHS 06/07/18 Fluticasone/Umeclidin/Vilanter [Trelegy 100-62.5-25 Mcg Ellipta 14 Dose/Dpi] 1 puff IH DAILY 06/07/18 Ipratropium/Albuterol Sulfate [Iprat-Albut 0.5-3(2.5) mg/3 ml] 3 ml NEB RTQ4HP PRN 06/07/18 Losartan/Hydrochlorothiazide [Hyzaar 100-25 Tablet] 1 tab PO DAILY 06/07/18 Apixaban [Eliquis 5 mg Tablet] 5 mg PO Q12 #60 tablet 06/19/18 Oxycodone HCl [Oxycontin Sr 40 mg Tablet] 40 mg PO Q12 tab.sr.12h 06/19/18 Diltiazem HCl [Cardizem 30 mg Tablet] 30 mg PO Q6 #120 tablet 06/24/18 Esomeprazole Magnesium [Nexium] 40 mg PO Q12H #180 capsule. 06/24/18 Allergies/Adverse Reactions: No Known Allergies Allergy (Verified 04/27/14 21:43) Review of Systems Review of Systems: Please see history of present illness and past medical history as wall. Constitutional: No fever or chills reported. Head : No recent chronic headaches, recent head injury. Eyes: No recent eye pain, diplopia, redness, discharge, acute visual changes. Ears: No recent chronic ear pain, acute hearing loss, ear discharge. Oral cavity: No recent ulcerations, bleeding, oral cavity discomfort. Neck: No recent acute neck pain reported. Hematologic: No recent easy bruising or bleeding. Lymphatic: No recent lymph node enlargement reported. Cardiovascular system review: See history of present illness. Respiratory system review: No hemoptysis or blood clots in the lungs reported. Cough and wheezing, shortness of breath on exertion Gastrointestinal system review: Negative for any recent acute hematemesis, melena. Genitourinary system review: No recent acute or chronic hematuria, flank pain, UTI etc. reported. Skin system review: Negative for any recent abnormal bruising, no rash, no pruritus reported. Neurologic: No prior history of strokes, mini strokes, seizure disorder. Psychologic: No history of major psychosis or major depression reported. Musculoskeletal: Minor aches and pains reported. No acute joint swelling reported. Endocrine: No recent polyuria, polydipsia, recent heat or cold intolerance. Physical Exam Vital Signs: Temp Pulse Resp BP Pulse Ox 98.5 F 65 16 121/64 95 06/23/18 15:20 06/23/18 15:46 06/23/18 15:46 06/23/18 15:20 06/23/18 15:46 Pulse Oximeter Continuous Start: 06/23/18 08: 26 Freq: RTQ4 Status: Active Document 06/23/18 15:46 [facility] (Rec: 06/23/18 16:04 [facility] [id number]) Pulse Oximetry Assessment Oxygen Saturation (92-100) 95 Oxygen Flow Rate (L/min) 4 Oxygen Delivery Method Nasal Cannula Equipment Usage Equipment in Use Continuous SpO2 Machine # [id number] Intake & Output 06/22/18 06/23/18 06/24/18 06:59 06:59 06:59 Intake Total 118 Output Total 500 175 Balance -500 -57 Weight 89.2 kg Exam: GENERAL: well-nourished and in no acute distress. Alert and oriented x3 HEAD: Atraumatic, normocephalic. EYES: Pupils equal round and reactive to light, extraocular movements intact, sclera anicteric, conjunctiva are normal. ENT: TMs normal, nares patent, oropharynx clear without exudates. Moist mucous membranes. No oral ulcerations or bleeding gums noted NECK: supple without lymphadenopathy. Trachea is central. No cervical or axillary lymphadenopathy noted. Carotids are 2+, JVD 8-10 cm LUNGS: Respiration seems nonlabored, no significant accessory muscle action noted. Bibasilar fine crackles and scattered wheezes rales or rhonchi noted. No significant dullness noted on percussion. CHEST: Palpation of the chest wall shows no significant chest wall tenderness. HEART: [place] [employer], No PSH, 1/6 SANTY aortic area, 1/6 fernández systolic murmur mitral area, no rubs, no gallops. ABDOMEN: Soft, no significant tenderness appreciated, normoactive bowel sounds. No guarding, no rebound. No rigidity noted . No masses appreciated. EXTREMITIES: Pedal pulses are 1-2+, no calf tenderness noted. No clubbing or cyanosis. Trace pedal edema noted NEUROLOGICAL: Focused neurological exam showed no significant neurologic deficit. Normal speech, no focal weakness appreciated. PSYCH: Normal mood, normal affect. Judgment and insight within normal limits. SKIN: No significant ecchymosis, skin is noted to be warm. MUSCULOSKELETAL EXAM: No significant acute joint swelling noted. Results EKG Comments: Initial EKG shows multifocal atrial tachycardia, with very irregular heart rate and also right bundle branch block pattern. Subsequent EKG shows sinus tachycardia, right bundle branch block, no acute ST-T wave changes are noted. Impressions: Chest X-Ray 06/22/18 23:25 FINDINGS/IMPRESSION: Normal cardiomediastinal silhouette. Patchy airspace opacities throughout both lower lobes, slightly improved. Small right pleural effusion is unchanged. Opacified contrast is seen in the upper abdomen. Assessment & Plan - Diagnosis (1) Multifocal atrial tachycardia Is this a current diagnosis for this admission?: Yes (2) Congestive heart failure Qualifiers: Heart failure type: right-sided Is this a current diagnosis for this admission?: Yes (3) Acute respiratory failure with hypoxemia Is this a current diagnosis for this admission?: Yes (4) Pulmonary embolism Qualifiers: Pulmonary embolism type: other Chronicity: unspecified Acute cor pulmonale presence: with acute cor pulmonale Qualified Code(s): I26.09 - Other pulmonary embolism with acute cor pulmonale Is this a current diagnosis for this admission?: Yes (5) COPD (chronic obstructive pulmonary disease) Qualifiers: COPD type: unspecified COPD Qualified Code(s): J44.9 - Chronic obstructive pulmonary disease, unspecified Is this a current diagnosis for this admission?: Yes (6) Lung cancer Qualifiers: Laterality: unspecified laterality Lung location: unspecified part of lung Qualified Code(s): C34.90 - Malignant neoplasm of unspecified part of unspecified bronchus or lung Is this a current diagnosis for this admission?: Yes (7) Hypertension Qualifiers: Hypertension type: essential hypertension Qualified Code(s): I10 - Essential (primary) hypertension Is this a current diagnosis for this admission?: Yes (8) Dyslipidemia Is this a current diagnosis for this admission?: Yes - Notes Notes: Start Cardizem 30 mg p.o. every 6 adjust as needed. Continue current dose of beta-stef. Maintain electrolytes within normal limits. May check TSH levels. Multifocal atrial tachycardia: Consultation was for this reason. This condition responds better to calcium channel stef. Start patient on Cardizem 30 mg p.o. every 6. Change to longer acting agent as tolerated. Most likely precipitated by COPD, lung cancer, pulmonary embolism. CHF: 2D echo results reviewed. It seems patient mostly has right-sided CHF. At this point seems satisfactorily compensated. Continue current therapeutic regimen. Patient will benefit from continued oxygen supplementation and treatment with bilevel therapy/CPAP therapy. Pulmonary embolism: Continue chronic anticoagulation. Acute hypoxemia and respiratory failure: Continue with oxygen supplementation. [facility] input may be helpful. COPD: Continue current management plan. Lung cancer: Patient being monitored by oncologist. Hypertension: Blood pressure under satisfactory control. Dyslipidemia: Continue statin therapy. - Time Time Spent: 30 to 50 Minutes - CODE STATUS was discussed, patient remains full code. Surrogate decision-maker patient's sister. Multiple medical problems were addressed. More than 50% of the time spent coordinating care, discussing management plans with involved caregivers. Management plans discussed with involved personnels. Medical decision making was of moderate to high complexity , patient's has multiple comorbidities. Medications reviewed and adjusted accordingly: Yes
[2018-06-24 18:03] VITALS: BP 152/57
[2018-06-24] MEDS ORDERED: LANSOPRAZOLE 30 MG TAB.RAP.DR PO ONE (18:15)
--- NOTE | 2018-06-24 19:41 | PDOC DISCHARGE SUMMARY ---
General - Admit/Disc Date/PCP Admission Date/Primary Care Provider: 06/23/18 00:58 SADIE MCCRAY MD Discharge Date: 06/24/18 - Discharge Diagnosis (1) Acute hypoxemic respiratory failure Is this a current diagnosis for this admission?: Yes (2) Malignant neoplasm of lung Is this a current diagnosis for this admission?: Yes (3) Esophageal stricture Is this a current diagnosis for this admission?: Yes - Additional Information Resuscitation Status: Full Code Discharge Diet: As Tolerated, Cardiac Discharge Activity: Activity As Tolerated, Balance Activity w/Rest Prescriptions: RX: Diltiazem HCl [Cardizem 30 mg Tablet] 30 mg PO Q6 #120 tablet Esomeprazole Magnesium [Nexium] 40 mg PO Q12H #180 capsule. Home Medications: RX: Atenolol [Tenormin 50 mg Tablet] 50 mg PO DAILY 06/07/18 RX: Atorvastatin Calcium [Lipitor 40 mg Tablet] 40 mg PO QHS 06/07/18 RX: Fluticasone/Umeclidin/Vilanter [Trelegy 100-62.5-25 Mcg Ellipta 14 Dose/Dpi ] 1 puff IH DAILY 06/07/18 RX: Ipratropium/Albuterol Sulfate [Iprat-Albut 0.5-3(2.5) mg/3 ml] 3 ml NEB RTQ4HP PRN 06/07/18 RX: Losartan/Hydrochlorothiazide [Hyzaar 100-25 Tablet] 1 tab PO DAILY 06/07/18 RX: Apixaban [Eliquis 5 mg Tablet] 5 mg PO Q12 #60 tablet 06/19/18 RX: Oxycodone HCl [Oxycontin Sr 40 mg Tablet] 40 mg PO Q12 tab.sr.12h 06/19/18 Esomeprazole Magnesium [Nexium] 40 mg PO Q12H #180 capsule. 06/24/18 RX: Diltiazem HCl [Cardizem 30 mg Tablet] 30 mg PO Q6 #120 tablet 06/24/18 History of Present Illness History of Present Illness: MEG MONTGOMERY is a 73 year old male, He was just discharged this morning, he came to the emergency room because of shortness of breath, my understanding was that the oxygen cylinder was empty and he needed to use oxygen therapy he came to emergency room for evaluation, hospital admission was advised Hospital Course Hospital Course: Patient was admitted for the management of hypoxemic respiratory failure admit was made for oxygen therapy is to be discharged home today he also have stricture of the esophagus, I spoke to Dr. Espinosa he will arrange to bring him back for dilatation of the esophagus., Overall prognosis is very poor he had episode of SVT he was seen by cardiology he was started on Cardizem p.o. Physical Exam Vital Signs: Temp Pulse Resp BP Pulse Ox 98.6 F 78 20 152/57 H 100 06/24/18 17:59 06/24/18 17:59 06/24/18 17:59 06/24/18 17:59 06/24/18 17:59 Pulse Oximeter Continuous Start: 06/23/18 08: 26 Freq: RTQ4 Status: Active Document 06/24/18 16:22 [facility] (Rec: 06/24/18 17:06 [facility] [id number]) Pulse Oximetry Assessment Oxygen Saturation (92-100) 100 Oxygen Flow Rate (L/min) 4 Oxygen Delivery Method Nasal Cannula Fraction of Inspired Oxygen (FIO2) 36 Equipment Usage Equipment in Use Continuous SpO2 Machine # [id number] Intake & Output 06/23/18 06/24/18 06/25/18 06:59 06:59 06:59 Intake Total 318 458 Output Total 500 1300 450 Balance -500 -982 8 Weight 89.2 kg 87.5 kg General appearance: PRESENT: no acute distress Eye exam: PRESENT: PERRLA Respiratory exam: PRESENT: clear to auscultation jim Cardiovascular exam: PRESENT: +S1, +S2 GI/Abdominal exam: PRESENT: soft Neurological exam: PRESENT: alert Results Impressions: Chest X-Ray 06/22/18 23:25 FINDINGS/IMPRESSION: Normal cardiomediastinal silhouette. Patchy airspace opacities throughout both lower lobes, slightly improved. Small right pleural effusion is unchanged. Opacified contrast is seen in the upper abdomen. Qualifiers - * PATIENT BEING DISCHARGED WITH ANY OF THE FOLLOWING DIAGNOSIS: No
--- NOTE | 2018-06-25 10:16 | PDOC PROGRESS REPORT ---
Subjective Progress Note for:: 06/24/18 Subjective:: Patient was seen on morning rounds on June 23. Patient was started on Cardizem the day before at 30 mg p.o. every 6. This was in addition to metoprolol he was on. This completely helped patient heart rate to be better controlled. Patient also feeling much improved. Patient sister in the room. Patient seems to be doing better with significant improvement. Pt is denying any chest arm or neck discomfort. Patient denying any PND, orthopnea. Patient denied any sustained palpitations, dizziness, syncope, near syncope. Patient denying any fever chills. Patient denying any other significant discomfort. Patient is maintaining sinus rhythm. Review of systems: Rest review of systems negative. Medications: Medications have been reviewed. Reason For Visit: RESPIRATORY DISTRESS Physical Exam Vital Signs: Temp Pulse Resp BP Pulse Ox 98.6 F 78 20 152/57 H 100 06/24/18 17:59 06/24/18 17:59 06/24/18 17:59 06/24/18 17:59 06/24/18 17:59 Pulse Oximeter Continuous Start: 06/23/18 08: 26 Freq: RTQ4 Status: Discharge Document 06/24/18 16:22 [facility] (Rec: 06/24/18 17:06 [facility] [id number]) Pulse Oximetry Assessment Oxygen Saturation (92-100) 100 Oxygen Flow Rate (L/min) 4 Oxygen Delivery Method Nasal Cannula Fraction of Inspired Oxygen (FIO2) 36 Equipment Usage Equipment in Use Continuous SpO2 Machine # [id number] Intake & Output 06/24/18 06/25/18 06/26/18 06:59 06:59 06:59 Intake Total 318 458 Output Total 1300 450 Balance -982 8 Weight 87.5 kg Exam: GENERAL: well-nourished and in no acute distress. Alert and oriented x3 HEAD: Atraumatic, normocephalic. EYES: Pupils equal round and reactive to light, extraocular movements intact, sclera anicteric, conjunctiva are normal. ENT: TMs normal, nares patent, oropharynx clear without exudates. Moist mucous membranes. No oral ulcerations or bleeding gums noted NECK: supple without lymphadenopathy. Trachea is central. No cervical or axillary lymphadenopathy noted. Carotids are 2+, JVD WNL LUNGS: Respiration seems nonlabored, no significant accessory muscle action noted. Breath sounds clear to auscultation bilaterally and equal noted. Few scattered wheezes rales or rhonchi noted. No significant dullness noted on percussion. CHEST: Palpation of the chest wall shows no significant chest wall tenderness. 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 ABDOMEN: Soft, no significant tenderness appreciated, normoactive bowel sounds. No guarding, no rebound. No rigidity noted . No masses appreciated. EXTREMITIES: Pedal pulses are 1-2+, no calf tenderness noted. No clubbing or cyanosis. negative pedal edema noted NEUROLOGICAL: Focused neurological exam showed no significant neurologic deficit. Normal speech, no focal weakness appreciated. PSYCH: Normal mood, normal affect. Judgment and insight within normal limits. SKIN: No significant ecchymosis, skin is noted to be warm. MUSCULOSKELETAL EXAM: No significant acute joint swelling noted. Results EKG Comments: Telemetry strip shows sinus rhythm with occasional APCs and VPCs. Impressions: Chest X-Ray 06/22/18 23:25 FINDINGS/IMPRESSION: Normal cardiomediastinal silhouette. Patchy airspace opacities throughout both lower lobes, slightly improved. Small right pleural effusion is unchanged. Opacified contrast is seen in the upper abdomen. Assessment & Plan - Diagnosis (1) Multifocal atrial tachycardia Is this a current diagnosis for this admission?: Yes (2) Congestive heart failure Qualifiers: Heart failure type: right-sided Heart failure chronicity: acute on chronic Qualified Code(s): I50.813 - Acute on chronic right heart failure Is this a current diagnosis for this admission?: Yes (3) COPD (chronic obstructive pulmonary disease) Qualifiers: COPD type: unspecified COPD Qualified Code(s): J44.9 - Chronic obstructive pulmonary disease, unspecified Is this a current diagnosis for this admission?: Yes (4) Acute respiratory failure with hypoxemia Is this a current diagnosis for this admission?: Yes (5) Hypertension Qualifiers: Hypertension type: essential hypertension Qualified Code(s): I10 - Essential (primary) hypertension Is this a current diagnosis for this admission?: Yes (6) Hyperlipidemia Qualifiers: Hyperlipidemia type: unspecified Qualified Code(s): E78.5 - Hyperlipidemia , unspecified Is this a current diagnosis for this admission?: Yes - Notes Notes: Patient has shown significant improvement. Patient has been seen by subspecialist. Follow their recommendations. Cardiac barker, patient has improved significantly with calcium channel stef therapy. Multifocal atrial tachycardia: Improved. Patient responded very nicely to Cardizem therapy. This condition responds better to calcium channel stef. Continue at current dose may consider switch to longer acting agent as tolerated. Most likely precipitated by COPD, lung cancer, pulmonary embolism. CHF: 2D echo results reviewed. It seems patient mostly has right-sided CHF. At this point seems satisfactorily compensated. Continue current therapeutic regimen. Patient will benefit from continued oxygen supplementation and treatment with bilevel therapy/CPAP therapy. Pulmonary embolism: Continue chronic anticoagulation. Acute hypoxemia and respiratory failure: Continue with oxygen supplementation. COPD: Continue current management plan. Lung cancer: Patient being monitored by oncologist. Hypertension: Blood pressure under satisfactory control. Dyslipidemia: Continue statin therapy. - Time Time with patient: Greater than 35 minutes - CODE STATUS was discussed, patient remains full code. Surrogate decision-maker unchanged. Multiple medical problems were addressed. More than 50% of the time spent coordinating care, discussing management plans with involved caregivers. Management plans discussed with involved personnels. Medical decision making was of moderate to high complexity, patient's has multiple comorbidities. Medications reviewed and adjusted accordingly: Yes
== END 2018-06-24 19:45 | disposition home or self-care (01) | DRG 189 ==
LOC: ER 23:12 → EH 06-23 00:58 → 3S 06-23 02:33
PROVIDERS: ADMIT Internal Medicine; ATTEND Internal Medicine
PROC: 5A09457 Assistance with Respiratory Ventilation, 24-96 Consecutive Hours, Continuous Positive Airway Pressure (ICD-10-PCS; principal; 2018-06-22)
PROC: 3E0F73Z Introduction of Anti-inflammatory into Respiratory Tract, Via Natural or Artificial Opening (ICD-10-PCS; 2018-06-23)
DX: J96.01 Acute respiratory failure with hypoxia (principal); I26.99 Other pulmonary embolism without acute cor pulmonale; C34.90 Malignant neoplasm of unspecified part of unspecified bronchus or lung; I47.1 Supraventricular tachycardia; K22.2 Esophageal obstruction; J44.9 Chronic obstructive pulmonary disease, unspecified; K21.9 Gastro-esophageal reflux disease without esophagitis; K44.9 Diaphragmatic hernia without obstruction or gangrene; I50.813 Acute on chronic right heart failure; E78.00 Pure hypercholesterolemia, unspecified; D64.81 Anemia due to antineoplastic chemotherapy; I11.0 Hypertensive heart disease with heart failure; I45.81 Long QT syndrome; Z79.899 Other long term (current) drug therapy; Z99.81 Dependence on supplemental oxygen; Z90.49 Acquired absence of other specified parts of digestive tract; Z87.891 Personal history of nicotine dependence; Z82.49 Family history of ischemic heart disease and other diseases of the circulatory system; Z80.9 Family history of malignant neoplasm, unspecified
CPT/HCPCS: 36415; 71045; 80053; 83880; 84484; 85025; 85610; 85730; 93005; 93010; 94660; 94762; 99285; J1940; J3490; J7620

== ENCOUNTER 2018-07-30 15:44 | Emergency (ER) | payer MEDICARE, BC ==
--- NOTE | 2018-07-30 16:18 | ER Document Report ---
ED Medical Screen (RME) - General Chief Complaint: Blood Pressure Problem Stated Complaint: BLOOD PRESSURE ISSUE Time Seen by Provider: 07/30/18 15:57 Notes: 73-year-old male to the emergency department for evaluation of hypertension. Patient with lung cancer. On Keytruda. Recently has had problems with his blood pressure. Blood pressure is fluctuating. Blood pressure was low so blood pressure medication was stopped. Was restarted on valsartan HCTZ yesterday. Now blood pressure is high. Denies any symptoms at this time. I have greeted and performed a rapid initial assessment of this patient. A comprehensive ED assessment and evaluation of the patient, analysis of test results and completion of the medical decision making process will be conducted by additional ED providers. TRAVEL OUTSIDE OF THE [place] IN LAST 30 DAYS: No - Related Data Allergies/Adverse Reactions: No Known Allergies Allergy (Verified 07/30/18 16:16) Past Medical History - Social History Chew tobacco use (# tins/day): No Frequency of alcohol use: None Drug Abuse: None - Past Medical History Cardiac Medical History: Reports: Hx Hypertension Denies: Hx Coronary Artery Disease, Hx Heart Attack Pulmonary Medical History: Reports: Hx COPD Denies: Hx Asthma, Hx Bronchitis, Hx Pneumonia Neurological Medical History: Denies: Hx Cerebrovascular Accident, Hx Seizures Renal/ Medical History: Denies: Hx Peritoneal Dialysis Malignancy Medical History: Reports Hx Lung Cancer GI Medical History: Reports: Hx Gastroesophageal Reflux Disease, Hx Hiatal Hernia. Denies: Hx Crohn's Disease, Hx Ulcerative Colitis Musculoskeltal Medical History: Denies Hx Arthritis Skin Medical History: Denies Hx Psoriasis Psychiatric Medical History: Denies: Hx Depression Traumatic Medical History: Denies: Hx Gunshot Wound, Hx Pneumothorax Past Surgical History: Reports: Hx Cholecystectomy - Lung surgery and gastric surgery, Other - Immunizations Hx Diphtheria, Pertussis, Tetanus Vaccination: Yes History of Influenza Vaccine for 06/2017 - 11/2017 Season: Unknown Physical Exam - Vital signs Vitals: Temp Pulse Resp BP Pulse Ox 97.8 F 74 16 173/77 H 95 07/30/18 16:02 07/30/18 16:02 07/30/18 16:02 07/30/18 16:02 07/30/18 16:02 Course - Vital Signs Vital signs: Temp Pulse Resp BP Pulse Ox 97.8 F 74 16 173/77 H 95 07/30/18 16:02 07/30/18 16:02 07/30/18 16:02 07/30/18 16:02 07/30/18 16:02 Doctor's Discharge - Discharge Referrals: SADIE MCCRAY MD [Primary Care Provider] - Follow up as needed
[2018-07-30 17:07] LABS: HEMATOCRIT 34.6 % (37.9-51.0); HEMOGLOBIN 11.3 g/dL (13.5-17.0); MEAN CORPUSCULAR HEMOGLOBIN 31.7 pg (27.0-33.4); MEAN CORPUSCULAR HGB CONC 32.6 g/dL (32.0-36.0); MEAN CORPUSCULAR VOLUME 97 fl (80-97); RED BLOOD COUNT 3.56 10^6/uL (4.35-5.55); RED CELL DISTRIBUTION WIDTH 20.4 % (11.5-14.0); WHITE BLOOD COUNT 8.9 10^3/uL (4.0-10.5)
[2018-07-30 17:20] LABS: PLATELET COUNT 60 10^3/uL (150-450)
[2018-07-30 17:22] LABS: ABSOLUTE LYMPHOCYTES# (MANUAL) 0.5 10^3/uL (0.5-4.7); ABSOLUTE MONOCYTES # (MANUAL) 0.1 10^3/uL (0.1-1.4); ABSOLUTE NEUTROPHILS# (MANUAL) 8.3 10^3/uL (1.7-8.2); BASOPHILS % (MANUAL) 0 % (0-2); EOSINOPHILS % (MANUAL) 0 % (0-6); LYMPHOCYTES % (MANUAL) 6 % (13-45); MONOCYTES % (MANUAL) 1 % (3-13); SEGMENTED NEUTROPHILS % (MAN) 93 % (42-78); TOTAL CELLS COUNTED 100
[2018-07-30 17:26] LABS: ANISOCYTOSIS 2+; PLATELET COMMENT DECREASED; POIKILOCYTOSIS 1+; STOMATOCYTES SLIGHT; TEAR DROP CELLS SLIGHT
[2018-07-30 17:30] LABS: ALANINE AMINOTRANSFERASE 30 U/L (21-72); ALBUMIN 3.5 g/dL (3.5-5.0); ALKALINE PHOSPHATASE 185 U/L (38-126); ANION GAP 10 (5-19); ASPARTATE AMINO TRANSFERASE 31 U/L (17-59); BILIRUBIN,DIRECT 0.3 mg/dL (0.0-0.4); BILIRUBIN,TOTAL 0.7 mg/dL (0.2-1.3); BLOOD UREA NITROGEN 31 mg/dL (7-20); CALCIUM 10.3 mg/dL (8.4-10.2); CARBON DIOXIDE 26 mmol/L (22-30); CHLORIDE 105 mmol/L (98-107); GLUCOSE 171 mg/dL (75-110); POTASSIUM 4.5 mmol/L (3.6-5.0); SODIUM 141.4 mmol/L (137-145); TOTAL PROTEIN 6.5 g/dL (6.3-8.2)
--- NOTE | 2018-07-30 18:08 | ER Document Report ---
ED Blood Pressure Problem - General Chief Complaint: Blood Pressure Problem Stated Complaint: BLOOD PRESSURE ISSUE Time Seen by Provider: 07/30/18 15:57 Notes: Patient is a 73-year-old male who presents to the emergency department with chief complaint of possible elevated blood pressure at home. He states that his blood pressure at home was 148/103. He reports that he saw his primary care provider yesterday who restarted him on one of his blood pressure medications. Patient denies any other complaints today, denies any chest pain. TRAVEL OUTSIDE OF THE [place] IN LAST 30 DAYS: No - Related Data Allergies/Adverse Reactions: No Known Allergies Allergy (Verified 07/30/18 16:16) Past Medical History - General Information source: Patient - Social History Smoking Status: Former Smoker Chew tobacco use (# tins/day): No Frequency of alcohol use: None Drug Abuse: None Family History: Hypertension, Malignancy Patient has suicidal ideation: No Patient has homicidal ideation: No - Past Medical History Cardiac Medical History: Reports: Hx Hypertension Denies: Hx Coronary Artery Disease, Hx Heart Attack Pulmonary Medical History: Reports: Hx COPD Denies: Hx Asthma, Hx Bronchitis, Hx Pneumonia Neurological Medical History: Denies: Hx Cerebrovascular Accident, Hx Seizures Renal/ Medical History: Denies: Hx Peritoneal Dialysis Malignancy Medical History: Reports Hx Lung Cancer GI Medical History: Reports: Hx Gastroesophageal Reflux Disease, Hx Hiatal Hernia. Denies: Hx Crohn's Disease, Hx Ulcerative Colitis Musculoskeletal Medical History: Denies Hx Arthritis Skin Medical History: Denies Hx Psoriasis Psychiatric Medical History: Denies: Hx Depression Traumatic Medical History: Denies: Hx Gunshot Wound, Hx Pneumothorax Past Surgical History: Reports: Hx Cholecystectomy - Lung surgery and gastric surgery, Other - Immunizations Hx Diphtheria, Pertussis, Tetanus Vaccination: Yes Hx Pneumococcal Vaccination: 06/13/14 Review of Systems - Review of Systems Constitutional: No symptoms reported EENT: No symptoms reported Cardiovascular: No symptoms reported Respiratory: No symptoms reported Gastrointestinal: No symptoms reported Genitourinary: No symptoms reported Male Genitourinary: No symptoms reported Musculoskeletal: No symptoms reported Skin: No symptoms reported Hematologic/Lymphatic: No symptoms reported Neurological/Psychological: No symptoms reported Physical Exam - Vital signs Vitals: Temp Pulse Resp BP Pulse Ox 97.8 F 74 16 173/77 H 95 07/30/18 16:02 07/30/18 16:02 07/30/18 16:02 07/30/18 16:02 07/30/18 16:02 - Notes Notes: PHYSICAL EXAMINATION: GENERAL: Well-appearing, well-nourished and in no acute distress. HEAD: Atraumatic, normocephalic. EYES: Pupils equal round and reactive to light, extraocular movements intact, sclera anicteric, conjunctiva are normal. ENT: Nares patent, oropharynx clear without exudates. Moist mucous membranes. NECK: Normal range of motion, supple without lymphadenopathy LUNGS: Breath sounds clear to auscultation bilaterally and equal. No wheezes rales or rhonchi. HEART: Regular rate and rhythm without murmurs ABDOMEN: Soft, nontender, nondistended abdomen. No guarding, no rebound. No masses appreciated. Musculoskeletal: Normal range of motion, no pitting or edema. No cyanosis. NEUROLOGICAL: Cranial nerves grossly intact. Normal speech, normal gait. Normal sensory, motor exams PSYCH: Normal mood, normal affect. SKIN: Warm, Dry, normal turgor, no rashes or lesions noted. Course - Re-evaluation Re-evalutation: 07/30/18 18:07 Called and spoke with Dr. Mccray, patient's primary care provider. I discussed patient's current blood pressure of 143/[address] as [address] as troponin. Dr. Mccray feels comfortable with me discharging this patient home. Patient is chest pain-free and has had no complaints other than his concern of elevated blood pressure. Dr. Mccray recommends telling patient to continue his blood pressure medications that were previously prescribed and follow-up in his office next week. - Vital Signs Vital signs: Temp Pulse Resp BP Pulse Ox 97.7 F 77 12 140/83 H 96 07/30/18 18:32 07/30/18 18:32 07/30/18 18:32 07/30/18 18:32 07/30/18 18:32 - Laboratory Result Diagrams: 07/30/18 16:50 07/30/18 16:50 Laboratory results interpreted by me: 07/30/18 07/30/18 16:50 16:50 RBC 3.56 L Hgb 11.3 L Hct 34.6 L RDW 20.4 H Plt Count 60 L Seg Neuts % (Manual) 93 H Lymphocytes % (Manual) 6 L Monocytes % (Manual) 1 L Abs Neuts (Manual) 8.3 H BUN 31 H Est GFR (Non-Af Amer) 57 L Glucose 171 H Calcium 10.3 H Alkaline Phosphatase 185 H Discharge - Discharge Clinical Impression: Alteration in blood pressure Condition: Stable Disposition: HOME, SELF-CARE Additional Instructions: Your blood pressure was mildly elevated on arrival at 173/77. Repeat blood pressure check was 143/83. I did call your primary care provider Dr. Mccray who recommends that you continue taking the blood pressure medication that he prescribed to yesterday and follow-up in his office next week. Return to the emergency department for any additional urgent needs. Referrals: SADIE MCCRAY MD [Primary Care Provider] - Follow up as needed
[2018-07-30 18:34] VITALS: BP 140/83
--- NOTE | 2018-07-31 10:35 | EKG REPORT ---
SEVERITY:- ABNORMAL ECG - SINUS RHYTHM RIGHT BUNDLE BRANCH BLOCK : Confirmed by: Shaan Macias 31-Jul-2018 10:34:43
== END 2018-07-30 18:36 | disposition home or self-care (01) ==
LOC: ER 15:44
DX: I10 Essential (primary) hypertension (principal); Z85.118 Personal history of other malignant neoplasm of bronchus and lung; Z87.891 Personal history of nicotine dependence
CPT/HCPCS: 36415; 80053; 84484; 85025; 93005; 93010; 99284

== ENCOUNTER 2018-08-06 18:20 | Observation (INO) | payer MEDICARE, BC ==
--- NOTE | 2018-08-06 19:54 | ER Document Report ---
ED Medical Screen (RME) - General Chief Complaint: Chest Pain Stated Complaint: CHEST PAIN Time Seen by Provider: 08/06/18 19:52 Notes: Patient is complaining of pain in the right anterior chest which he thinks is fluid accumulation in his right lung. Patient was diagnosed with a cancer of the right lung 2015. He underwent surgery and has had one chemotherapy but no other treatment. He is scheduled to see a specialist at a cancer center in [place] on Wednesday. He has pain in the right chest and some shortness of breath. He does have home oxygen as needed. Has not had any recent cough or cold or chest congestion. Not running any fevers. TRAVEL OUTSIDE OF THE [place] IN LAST 30 DAYS: No - Related Data Allergies/Adverse Reactions: No Known Allergies Allergy (Verified 07/30/18 16:16) Past Medical History - Past Medical History Cardiac Medical History: Reports: Hx Hypertension Denies: Hx Coronary Artery Disease, Hx Heart Attack Pulmonary Medical History: Reports: Hx COPD Denies: Hx Asthma, Hx Bronchitis, Hx Pneumonia Neurological Medical History: Denies: Hx Cerebrovascular Accident, Hx Seizures Renal/ Medical History: Denies: Hx Peritoneal Dialysis Malignancy Medical History: Reports Hx Lung Cancer GI Medical History: Reports: Hx Gastroesophageal Reflux Disease, Hx Hiatal Hernia. Denies: Hx Crohn's Disease, Hx Ulcerative Colitis Musculoskeltal Medical History: Denies Hx Arthritis Skin Medical History: Denies Hx Psoriasis Psychiatric Medical History: Denies: Hx Depression Traumatic Medical History: Denies: Hx Gunshot Wound, Hx Pneumothorax Past Surgical History: Reports: Hx Cholecystectomy - Lung surgery and gastric surgery, Other - Immunizations Hx Diphtheria, Pertussis, Tetanus Vaccination: Yes History of Influenza Vaccine for 06/2017 - 11/2017 Season: Unknown Physical Exam - Vital signs Vitals: Temp Pulse Resp BP Pulse Ox 97.8 F 66 18 150/77 H 95 08/06/18 18:33 08/06/18 18:33 08/06/18 18:33 08/06/18 18:33 08/06/18 18:33 Course - Vital Signs Vital signs: Temp Pulse Resp BP Pulse Ox 97.8 F 66 18 150/77 H 95 08/06/18 18:33 08/06/18 18:33 08/06/18 18:33 08/06/18 18:33 08/06/18 18:33 Doctor's Discharge - Discharge Referrals: SADIE MCCRAY MD [Primary Care Provider] - Follow up as needed
--- NOTE | 2018-08-06 20:50 | RADIOLOGY REPORT (SQ) ---
EXAM DESCRIPTION: CHEST 2 VIEWS COMPLETED DATE/TIME: 08/06/2018 8:17 pm REASON FOR STUDY: Hx CA lung, Hx pleural effusion drained previously COMPARISON: 06/21/2018 EXAM PARAMETERS: NUMBER OF VIEWS: two views TECHNIQUE: Digital Frontal and Lateral radiographic views of the chest acquired. RADIATION DOSE: NA LIMITATIONS: none FINDINGS: LUNGS AND PLEURA: Improved aeration of the lungs on today's examination. Persistent right lower lobe atelectasis versus consolidation in the setting of right hemidiaphragm elevation. No pne umothorax. No significant pleural effusion. MEDIASTINUM AND HILAR STRUCTURES: Stable. HEART AND VASCULAR STRUCTURES: Heart normal size. No evidence for failure. BONES: No acute findings. HARDWARE: None in the chest. OTHER: No other significant finding. IMPRESSION: Improved radiographic appearance of the chest without significant residual pleural effus ion. TECHNICAL DOCUMENTATION: JOB ID: [id number] [employer]- All Rights Reserved Reading location - IP/workstation name: [email or web address]
[2018-08-06 20:52] LABS: ABSOLUTE EOSINOPHILS # (AUTO) 0.1 10^3/uL (0.0-0.6); ABSOLUTE LYMPHOCYTES (AUTO) 0.7 10^3/uL (0.5-4.7); ABSOLUTE MONOCYTES (AUTO) 0.6 10^3/uL (0.1-1.4); ABSOLUTE NEUT (AUTO) 4.3 10^3/uL (1.7-8.2); BASOPHILS % (AUTO) 0.8 % (0-2); EOSINOPHILS % (AUTO) 2.3 % (0-6); HEMATOCRIT 34.6 % (37.9-51.0); HEMOGLOBIN 11.4 g/dL (13.5-17.0); LYMPHOCYTES % (AUTO) 11.7 % (13-45); MEAN CORPUSCULAR HEMOGLOBIN 31.6 pg (27.0-33.4); MEAN CORPUSCULAR VOLUME 96 fl (80-97); MONOCYTES % (AUTO) 10.5 % (3-13); RED BLOOD COUNT 3.61 10^6/uL (4.35-5.55); RED CELL DISTRIBUTION WIDTH 19.1 % (11.5-14.0); SEGMENTED NEUTROPHILS % (AUTO) 74.7 % (42-78); TOTAL CELLS COUNTED % (AUTO) 100 %; WHITE BLOOD COUNT 5.8 10^3/uL (4.0-10.5)
[2018-08-06 21:00] LABS: ALANINE AMINOTRANSFERASE 26 U/L (21-72); ALBUMIN 3.5 g/dL (3.5-5.0); ALKALINE PHOSPHATASE 147 U/L (38-126); ANION GAP 6 (5-19); ASPARTATE AMINO TRANSFERASE 33 U/L (17-59); BILIRUBIN,DIRECT 0.3 mg/dL (0.0-0.4); BILIRUBIN,TOTAL 0.8 mg/dL (0.2-1.3); BLOOD UREA NITROGEN 27 mg/dL (7-20); CALCIUM 10.5 mg/dL (8.4-10.2); CARBON DIOXIDE 30 mmol/L (22-30); CHLORIDE 106 mmol/L (98-107); GLUCOSE 120 mg/dL (75-110); POTASSIUM 4.5 mmol/L (3.6-5.0); SODIUM 141.9 mmol/L (137-145); TOTAL PROTEIN 6.5 g/dL (6.3-8.2)
[2018-08-06 21:08] LABS: PLATELET COUNT 56 10^3/uL (150-450)
[2018-08-06] MEDS ORDERED: ASPIRIN 81 MG TABLET, CHEWABLE PO ONE (21:31)
[2018-08-06] MEDS ORDERED: ATORVASTATIN CALCIUM 80 MG TABLET PO ONE (21:31)
--- NOTE | 2018-08-06 21:32 | ER Document Report ---
ED General - General Chief Complaint: Chest Pain Stated Complaint: CHEST PAIN Time Seen by Provider: 08/06/18 19:52 Notes: Patient is a 73-year-old male with a past medical history of hypertension, known diagnosis of lung cancer currently not on chemotherapy, presents with approximately 12 hours of right-sided chest discomfort. He describes as a stabbing, aching pain to his right middle chest. States that the pain started relatively abruptly and has been unchanged since that time. Nothing improves or worsens the pain. States that he has some mild associated shortness of breath. States that he did contact the cancer center for [facility] where he is scheduled to go on Wednesday and advised that he come to the emergency department for further assessment. He denies any known history of coronary artery disease. He does have a history of CHF. He has never required stent placement in the past. He has not contacted his general physician regarding today's concerns. TRAVEL OUTSIDE OF THE [place] IN LAST 30 DAYS: No - Related Data Allergies/Adverse Reactions: No Known Allergies Allergy (Verified 07/30/18 16:16) Past Medical History - General Information source: Patient - Social History Smoking Status: Never Smoker Frequency of alcohol use: None Drug Abuse: None Lives with: Spouse/Significant other Family History: Hypertension, Malignancy Patient has suicidal ideation: No Patient has homicidal ideation: No - Past Medical History Cardiac Medical History: Reports: Hx Hypertension Denies: Hx Coronary Artery Disease, Hx Heart Attack Pulmonary Medical History: Reports: Hx COPD Denies: Hx Asthma, Hx Bronchitis, Hx Pneumonia Neurological Medical History: Denies: Hx Cerebrovascular Accident, Hx Seizures Renal/ Medical History: Denies: Hx Peritoneal Dialysis Malignancy Medical History: Reports Hx Lung Cancer GI Medical History: Reports: Hx Gastroesophageal Reflux Disease, Hx Hiatal Hernia. Denies: Hx Crohn's Disease, Hx Ulcerative Colitis Musculoskeletal Medical History: Denies Hx Arthritis Skin Medical History: Denies Hx Psoriasis Psychiatric Medical History: Denies: Hx Depression Traumatic Medical History: Denies: Hx Gunshot Wound, Hx Pneumothorax Past Surgical History: Reports: Hx Cholecystectomy - Lung surgery and gastric surgery, Other - Immunizations Hx Diphtheria, Pertussis, Tetanus Vaccination: Yes Hx Pneumococcal Vaccination: 06/13/14 Review of Systems - Review of Systems Notes: Constitutional: Negative for fever. HENT: Negative for sore throat. Eyes: Negative for visual changes. Cardiovascular: Positive for chest pain. Respiratory: Positive for shortness of breath. Gastrointestinal: Negative for abdominal pain, vomiting or diarrhea. Genitourinary: Negative for dysuria. Musculoskeletal: Negative for back pain. Skin: Negative for rash. Neurological: Negative for headaches, weakness or numbness. 10 point ROS negative except as marked above and in HPI. Physical Exam - Vital signs Vitals: Temp Pulse Resp BP Pulse Ox 97.8 F 66 18 150/77 H 95 08/06/18 18:33 08/06/18 18:33 08/06/18 18:33 08/06/18 18:33 08/06/18 18:33 Interpretation: Hypertensive Notes: PHYSICAL EXAMINATION: GENERAL: Well-appearing, well-nourished and in no acute distress. HEAD: Atraumatic, normocephalic. EYES: Pupils equal round and reactive to light, extraocular movements intact, sclera anicteric, conjunctiva are normal. ENT: nares patent, oropharynx clear without exudates. Moist mucous membranes. NECK: Normal range of motion, supple without lymphadenopathy LUNGS: Breath sounds clear to auscultation bilaterally and equal. No wheezes rales or rhonchi. HEART: Regular rate and rhythm without murmurs ABDOMEN: Soft, nontender, normoactive bowel sounds. No guarding, no rebound. No masses appreciated. EXTREMITIES: Normal range of motion, no pitting or edema. No cyanosis. NEUROLOGICAL: No focal neurological deficits. Moves all extremities spontaneously and on command. PSYCH: Normal mood, normal affect. SKIN: Warm, Dry, normal turgor, no rashes or lesions noted. Course - Re-evaluation Re-evalutation: 08/06/18 21:31 Patient is a 73-year-old male who presents with at least 2-3 days of ongoing right-sided chest discomfort with associated shortness of breath. His EKG does not show any acute ischemic changes. Chest x-ray is actually improved from prior. No pleuritic pain, no tachycardia, already making an acute PE unlikely. His troponin is however elevated at 0.3. Discussed with the patient about his location of transfer request as he will likely require cardiac catheterization. 08/06/18 22:24 The patient is extremely resistant to remain in the hospital or allowing transfer as he has an appointment at the cancer Center [facility] in [place] on Wednesday, does not want to be hospitalized. I have explained to the patient that his troponin is elevated, that this could be a type of NSTEMI, his marker has never been this high in the past and when it has been elevated on previous occasions it has been under the context of the patient having a CHF exacerbation which he is not having today. I did speak with the nurse corrosion technician for cancer [facility], February, she will also speak to the patient regarding her concerns today and then I will readdress with the patient. 08/06/18 23:[address] Patton who has accepted the patient for admission although he has advised that he would prefer the patient be transferred which the patient has declined to do. The patient's troponin has minimally changed from 0.373-0.383. Patient does not meet criteria for transfer based on our criteria for elevated troponins. - Vital Signs Vital signs: Temp Pulse Resp BP Pulse Ox 97.6 F 78 12 155/83 H 100 08/07/18 02:02 08/07/18 02:22 08/07/18 02:02 08/07/18 02:02 08/07/18 02:02 - Laboratory Result Diagrams: 08/06/18 20:34 08/06/18 20:34 Laboratory results interpreted by me: 08/06/18 08/06/18 20:34 20:34 RBC 3.61 L Hgb 11.4 L Hct 34.6 L RDW 19.1 H Plt Count 56 L Lymphocytes % 11.7 L BUN 27 H Creatinine 1.35 H Est GFR (Non-Af Amer) 52 L Glucose 120 H Calcium 10.5 H Alkaline Phosphatase 147 H - Diagnostic Test Radiology reviewed: Image reviewed, Reports reviewed Radiology results interpreted by me: 08/06/18 21:35 Chest x-ray: No acute infiltrate pneumothorax - EKG Interpretation by Me Additional EKG results interpreted by me: 08/06/18 21:35 Sinus rhythm. Right bundle branch block. No ST elevations or depressions. QTC is 434. Discharge - Discharge Clinical Impression: Elevated troponin Chest pain Qualifiers: Chest pain type: unspecified Qualified Code(s): R07.9 - Chest pain, unspecified Condition: Fair Disposition: ADMITTED OBSERVATION Admitting Provider: Abdi Unit Admitted: Telemetry
--- NOTE | 2018-08-06 21:39 | EKG REPORT ---
SEVERITY:- ABNORMAL ECG - SINUS RHYTHM RBBB AND LAFB : Confirmed by: Shandra Salgado MD 06-Aug-2018 21:38:51
[2018-08-06] MEDS: MORPHINE SULFATE 10 MG/ML INJ IV PRN (22:43)
[2018-08-06] MEDS ORDERED: ACETAMINOPHEN 325 MG TABLET PO PRN (23:57)
[2018-08-07] MEDS: MORPHINE SULFATE 10 MG/ML INJ IV PRN ×3 (03:12→16:12)
[2018-08-07 05:33] LABS: CREATINE KINASE MB 0.74 ng/mL (<4.55); TROPONIN I 0.32 ng/mL
[2018-08-07] MEDS ORDERED: IPRATROPIUM/ALBUTEROL 0.5-2.5 MG/3 ML AMPUL NEB PRN (05:42)
[2018-08-07] MEDS ORDERED: OXYCODONE HCL SR 40 MG TABLET PO PRN (05:42)
[2018-08-07 08:43] LABS: ABSOLUTE EOSINOPHILS # (AUTO) 0.3 10^3/uL (0.0-0.6); ABSOLUTE LYMPHOCYTES (AUTO) 1.1 10^3/uL (0.5-4.7); ABSOLUTE MONOCYTES (AUTO) 0.5 10^3/uL (0.1-1.4); ABSOLUTE NEUT (AUTO) 4.1 10^3/uL (1.7-8.2); BASOPHILS % (AUTO) 0.7 % (0-2); EOSINOPHILS % (AUTO) 4.9 % (0-6); HEMATOCRIT 34.6 % (37.9-51.0); HEMOGLOBIN 11.4 g/dL (13.5-17.0); LYMPHOCYTES % (AUTO) 17.7 % (13-45); MEAN CORPUSCULAR HEMOGLOBIN 31.8 pg (27.0-33.4); MEAN CORPUSCULAR HGB CONC 32.9 g/dL (32.0-36.0); MEAN CORPUSCULAR VOLUME 97 fl (80-97); MONOCYTES % (AUTO) 8.5 % (3-13); RED BLOOD COUNT 3.58 10^6/uL (4.35-5.55); SEGMENTED NEUTROPHILS % (AUTO) 68.2 % (42-78); TOTAL CELLS COUNTED % (AUTO) 100 %; WHITE BLOOD COUNT 6.1 10^3/uL (4.0-10.5)
[2018-08-07] MEDS: DILTIAZEM HCL 30 MG TABLET PO SCH ×2 (08:43→12:19)
--- NOTE | 2018-08-07 08:46 | PDOC H&P ---
History of Present Illness Admission Date/PCP: 08/07/18 00:02 SADIE MCCRAY MD Patient complains of: Right-sided chest pain History of Present Illness: MEG MONTGOMERY is a 73 year old male this is a 73-year-old male with a history of lung cancer currently on immunotherapy and also history of the pulmonary embolism and history of the COPD and congestive heart failure came to the emergency department with the complaint of right-sided chest pain which lasted 12 hours patient initial chest x-ray was all stable EKG was all stable no acute changes was patient's troponin was elevated to the non-ST NJ range The ER physicians offer the patient was transported to cardiac catheter tertiary center but patient refused to do that repeat cardiac enzyme is pretty much the same patient is already on Eliquis When I saw the patient on the floor patient's denied any chest pain denied any shortness of the breath patient have an episode of the nosebleed which currently put the packing and no actively bleeding His platelet count is only 56 Patient still wants to go to the [facility] while patient is receiving his immunotherapy and have appointment tomorrow Patient still also received 1 dose of the immunotherapy 2 weeks back Since family at the bedside discussed the all the test reports and concern . discuss with the cardiology locally here order the echocardiogram Past Medical History Cardiac Medical History: Reports: Congestive Heart Failure, Hypertension, Pulmonary Embolism Denies: Coronary Artery Disease, Myocardial Infarction Pulmonary Medical History: Reports: Chronic Obstructive Pulmonary Disease (COPD) Denies: Asthma, Bronchitis, Pneumonia Neurological Medical History: Denies: Seizures Malignancy Medical History: Reports: Lung Cancer GI Medical History: Reports: Gastroesophageal Reflux Disease, Hiatal Hernia Denies: Crohn's Disease, Ulcerative Colitis Musculoskeltal Medical History: Denies: Arthritis Skin Medical History: Denies: Psoriasis Psychiatric Medical History: Denies: Depression Traumatic Medical History: Denies: Gunshot Wound, Pneumothorax Hematology: Denies: Anemia Past Surgical History Past Surgical History: Reports: Cholecystectomy - Lung surgery and gastric surgery, Other Social History Lives with: Spouse/Significant other Smoking Status: Never Smoker Frequency of Alcohol Use: None Hx Recreational Drug Use: No Drugs: None Hx Prescription Drug Abuse: No - Advance Directive Resuscitation Status: Full Code Family History Family History: None, Hypertension, Malignancy Parental Family History Reviewed: Yes Children Family History Reviewed: Yes Sibling(s) Family History Reviewed.: Yes Medication/Allergy Home Medications: Atenolol [Tenormin 50 mg Tablet] 50 mg PO DAILY 06/07/18 Atorvastatin Calcium [Lipitor 40 mg Tablet] 40 mg PO QHS 06/07/18 Ipratropium/Albuterol Sulfate [Iprat-Albut 0.5-3(2.5) mg/3 ml] 3 ml NEB RTQ4HP PRN 06/07/18 Apixaban [Eliquis 5 mg Tablet] 5 mg PO Q12 #60 tablet 06/19/18 Diltiazem HCl [Cardizem 30 mg Tablet] 30 mg PO Q6 #120 tablet 06/24/18 Esomeprazole Magnesium [Nexium] 40 mg PO Q12H #180 capsule. 06/24/18 Oxycodone HCl [Oxycontin Sr 40 mg Tablet] 40 mg PO Q12 PRN 08/07/18 Allergies/Adverse Reactions: No Known Allergies Allergy (Verified 07/30/18 16:16) Review of Systems Constitutional: ABSENT: chills, fever(s), headache(s), weight gain, weight loss Eyes: ABSENT: visual disturbances Ears: ABSENT: hearing changes Cardiovascular: PRESENT: chest pain. ABSENT: dyspnea on exertion, edema, orthropnea, palpitations Respiratory: ABSENT: cough, hemoptysis Gastrointestinal: ABSENT: abdominal pain, constipation, diarrhea, hematemesis, hematochezia, nausea, vomiting Genitourinary: ABSENT: dysuria, hematuria Musculoskeletal: ABSENT: joint swelling Integumentary: ABSENT: rash, wounds Neurological: ABSENT: abnormal gait, abnormal speech, confusion, dizziness, focal weakness, syncope Psychiatric: ABSENT: anxiety, depression, homidical ideation, suicidal ideation Endocrine: ABSENT: cold intolerance, heat intolerance, menstrual abnormalities, polydipsia, polyuria Hematologic/Lymphatic: ABSENT: easy bleeding, easy bruising, lymphadenopathy Physical Exam Vital Signs: Temp Pulse Resp BP Pulse Ox 97.5 F 64 20 137/75 H 100 08/07/18 07:08 08/07/18 07:08 08/07/18 07:08 08/07/18 07:08 08/07/18 07:08 Intake & Output 08/06/18 08/07/18 08/08/18 06:59 06:59 06:59 Intake Total 437 Balance 437 Weight 97.6 kg General appearance: PRESENT: no acute distress, well-developed, well-nourished Head exam: PRESENT: atraumatic, normocephalic Eye exam: PRESENT: conjunctiva pink, EOMI, PERRLA. ABSENT: scleral icterus Ear exam: PRESENT: normal external ear exam Mouth exam: PRESENT: moist, tongue midline Additional comments: On the right side of the nose mild bleeding is seen up to put the packing no active bleeding seen Neck exam: PRESENT: full ROM. ABSENT: carotid bruit, JVD, lymphadenopathy, thyromegaly Respiratory exam: PRESENT: clear to auscultation jim Cardiovascular exam: PRESENT: RRR. ABSENT: diastolic murmur, rubs, systolic murmur Pulses: PRESENT: normal dorsalis pedis pul, +2 pedal pulses bilateral Vascular exam: PRESENT: normal capillary refill GI/Abdominal exam: PRESENT: normal bowel sounds, soft. ABSENT: distended, guarding, mass, organolmegaly, rebound, tenderness Rectal exam: PRESENT: deferred Extremities exam: ABSENT: pedal edema Musculoskeletal exam: PRESENT: ambulatory Neurological exam: PRESENT: alert, awake, oriented to person, oriented to place , oriented to time, oriented to situation, CN II-XII grossly intact. ABSENT: motor sensory deficit Psychiatric exam: PRESENT: appropriate affect, normal mood. ABSENT: homicidal ideation, suicidal ideation Skin exam: PRESENT: dry, intact, warm. ABSENT: cyanosis, rash Results Laboratory Results: 08/07/18 08/07/18 04:41 04:41 Creatine Kinase 23 L CK-MB (CK-2) 0.74 Troponin I 0.320 Impressions: Chest X-Ray 08/06/18 19:54 IMPRESSION: Improved radiographic appearance of the chest without significant residual pleural effusion. Assessment & Plan - Diagnosis (1) Chest pain Qualifiers: Chest pain type: unspecified Qualified Code(s): R07.9 - Chest pain, unspecified Is this a current diagnosis for this admission?: Yes Plan: Patient's troponin is elevated to non-ST [place] range but no EKG changes we will wait for the cardiology for further evaluations (2) Elevated troponin Is this a current diagnosis for this admission?: Yes Plan: Will await further cardiology for further evaluations does not look like any acute coronary syndrome (3) Anemia Qualifiers: Anemia type: unspecified type Qualified Code(s): D64.9 - Anemia, unspecified Is this a current diagnosis for this admission?: Yes (4) COPD (chronic obstructive pulmonary disease) Qualifiers: COPD type: unspecified COPD Qualified Code(s): J44.9 - Chronic obstructive pulmonary disease, unspecified Is this a current diagnosis for this admission?: Yes Plan: Continues to nebulizer treatments (5) Congestive heart failure Qualifiers: Heart failure type: right-sided Is this a current diagnosis for this admission?: Yes Plan: Currently all stable (6) Esophageal stricture Is this a current diagnosis for this admission?: Yes (7) Hypertension Qualifiers: Hypertension type: essential hypertension Qualified Code(s): I10 - Essential (primary) hypertension Is this a current diagnosis for this admission?: Yes (8) Lung cancer Qualifiers: Laterality: right Lung location: upper lobe of lung Qualified Code(s): C34.11 - Malignant neoplasm of upper lobe, right bronchus or lung Is this a current diagnosis for this admission?: Yes Plan: he is currently getting immunotherapy every 3 weeks (9) Multifocal atrial tachycardia Is this a current diagnosis for this admission?: Yes Plan: Currently all stable (10) NSTEMI (non-ST elevated myocardial infarction) Is this a current diagnosis for this admission?: Yes Plan: Will wait for the cardiology (11) Thrombocytopenia Is this a current diagnosis for this admission?: Yes Plan: We will consult the local forge press operator (12) Nosebleed Is this a current diagnosis for this admission?: Yes Plan: Due to the thrombocytopenia and currently on Eliquis currently hold the Eliquis consult the forge press operator there is no ENT available but patient is currently not actively bleeding nose pack placed - Time Time Spent: 30 to 50 Minutes Medications reviewed and adjusted accordingly: Yes Anticipated discharge: Home Within: Other - Inpatient Certification Based on my medical assessment, after consideration of the patient's comorbidities, presenting symptoms, or acuity I expect that the services needed warrant INPATIENT care.: Yes I certify that my determination is in accordance with my understanding of Medicare's requirements for reasonable and necessary INPATIENT services [42 CFR 412.3e].: Yes Medical Necessity: Significant Comorbidiites Make Outpatient Treatment Too Risky , Need Close Monitoring Due to Risk of Patient Decompensation Post Hospital Care: D/C Sterilisation Technician Documentation - Plan Summary Plan Summary: Patient is currently denied any chest pain but definitely patient's cardiac enzyme is elevated as per discussed with the cardiology ordered a stat echo Patient wants to go to the [facility] of appointment tomorrow but discussed with the patient's would like to wait for the cardiology evaluations in patients I have a thrombocytopenia with consult the forge press operator locally here with recent PE and Eliquis with further evaluation also Patient is almost ready to leave AMA yesterday want to stay another day but he may be thing leave AMA again but discussed with the patient and the family regarding the patient's current condition and the concerns patient understands very well
[2018-08-07 09:15] LABS: PLATELET COUNT 57 10^3/uL (150-450)
[2018-08-07] MEDS ORDERED: APIXABAN 5 MG TABLET PO SCH (10:00)
[2018-08-07] MEDS ORDERED: ATENOLOL 50 MG TABLET PO SCH (10:00)
--- NOTE | 2018-08-07 10:23 | EKG REPORT ---
SEVERITY:- ABNORMAL ECG - SINUS RHYTHM PROBABLE LEFT ATRIAL ABNORMALITY RBBB AND LAFB : Confirmed by: Shandra Salgado MD 07-Aug-2018 10:23:08
[2018-08-07] MEDS ORDERED: ALBUTEROL SULFATE HFA (90 MCG/PUFF) 200 PUFF/8.5 GM MDI IH PRN (12:00)
[2018-08-07] MEDS ORDERED: CODEINE PHOSPHATE PO PRN (12:00)
[2018-08-07] MEDS ORDERED: GUAIFENESIN PO PRN (12:00)
[2018-08-07] MEDS ORDERED: GUAIFENESIN/CODEINE PHOS 100-10 MG/ 5 ML UDC PO PRN (12:06)
[2018-08-07 12:29] LABS: CREATINE KINASE MB 0.68 ng/mL (<4.55)
[2018-08-07 12:34] LABS: TROPONIN I 0.337 ng/mL
--- NOTE | 2018-08-07 12:59 | XCELERA REPORT ---
[address] [address] Transthoracic Echocardiogram Report Name: MEG MONTGOMERY Age: 73 yrs Gender: Male : 1945 Patient Status: Inpatient Patient Location: [address] [place] [address] Study Date: 08/07/2018 09:29 AM Height: 70 in Weight: 215 lb BSA: 2.2 m2 Procedure: A two-dimensional transthoracic echocardiogram with color flow and Doppler was performed. Study Quality: Poor. The study was technically difficult with many images being suboptimal in quality. Reason For Study: non st mi History: NSTEMI. Ordering Physician: BABS YU Performed By: Susan Bhakta Interpretation Summary The left ventricle is normal in size. There is normal left ventricular wall thickness. LV EF is > than 65% Left ventricular systolic function is normal. Doppler measurements suggest normal left ventricular diastolic function Probably no regional wall motion abnormality. Suspect mild RV enlargement with normal RVEF. The left atrial size is normal. There is no evidence of mitral valve prolapse. There is no mitral valve stenosis. There is no mitral regurgitation noted. There is no aortic valve stenosis There is no LVOT obstruction. There is a trace amount of aortic regurgitation There is no tricuspid stenosis. Probably mild TR.RVSP is 56 to 61 mm of Hg , with RA mean of 5 to 10. There is a mild to moderate amount of pulmonic regurgitation There is no pulmonic valvular stenosis. There is no pericardial effusion. MMode/2D Measurements & Calculations RVDd: 4.0 cm LVIDd: 5.4 cm FS: 50.0 % Ao root diam: 3.4 cm IVSd: 0.90 cm LVIDs: 2.7 cm EDV(Teich): 138.6 ml Ao root area: 8.9 cm2 LVPWd: 1.1 cm ESV(Teich): 26.4 ml LA dimension: 3.8 cm EF(Teich): 80.9 % LVOT diam: 2.2 cm LVOT area: 3.9 cm2 Doppler Measurements & Calculations MV E max leonor: MV P1/2t max leonor: Ao V2 max: LV V1 max P.5 cm/sec 123.4 cm/sec 132.8 cm/sec 4.2 mmHg MV A max leonor: MV P1/2t: 47.1 msec Ao max PG: LV V1 max: 92.3 cm/sec MVA(P1/2t): 4.7 cm2 7.1 mmHg 102.2 cm/sec MV E/A: 1.2 MV dec slope: DAKOTA(V,D): 3.0 cm2 767.6 cm/sec2 MV dec time: 0.15 sec PA V2 max: PI end-d leonor: TR max leonor: MV P1/2t-pr_phl: 96.4 cm/sec 145.2 cm/sec 355.8 cm/sec 47.1 msec PA max P.7 mmHg TR max P.7 mmHg Left Ventricle The left ventricle is normal in size. There is normal left ventricular wall thickness. LV EF is > than 65%. Left ventricular systolic function is normal. Doppler measurements suggest normal left ventricular diastolic function. Probably no regional wall motion abnormality. There is no thrombus. Right Ventricle The right ventricle is not well visualized secondary to technical limitations. Suspect mild RV enlargement with normal RVEF. There is normal right ventricular wall thickness. Atria The right atrium is normal. The left atrial size is normal. Mitral Valve There is no evidence of mitral valve prolapse. There is no vegetation seen on the mitral valve. There is no mitral valve stenosis. There is no mitral regurgitation noted. Aortic Valve There is no aortic valvular vegetation. There is no aortic valve stenosis. There is no LVOT obstruction. There is a trace amount of aortic regurgitation. Tricuspid Valve There is no tricuspid stenosis. Probably mild TR.RVSP is 56 to 61 mm of Hg , with RA mean of 5 to 10. There is moderate pulmonary hypertension by echo. Pulmonic Valve There is no pulmonic valvular stenosis. There is a mild to moderate amount of pulmonic regurgitation. Great Vessels The aortic root is normal size. Effusions There is no pericardial effusion. : BABS YU > Shandra Salgado
--- NOTE | 2018-08-07 13:56 | EKG REPORT ---
SEVERITY:- ABNORMAL ECG - SINUS RHYTHM RBBB AND LAFB : Confirmed by: Shandra Salgado MD 07-Aug-2018 13:55:57
--- NOTE | 2018-08-07 14:28 | PDOC CONSULTATION ---
Consultation Consult Date: 08/07/18 Consult reason:: Hematology/Oncology consultation was requested for patient with lung cancer and active bleeding while on Blood thinners. History of Present Illness Admission Date/PCP: 08/07/18 00:02 SADIE MCCRAY MD History of Present Illness: MEG MONTGOMERY is a 73 year old male who was diagnosed with an early stage Lung cancer in 2016. He did well until earlier this year when he was found to have a recurrence. He has been receiving his cancer treatments in [place] and is reportedly on an immunotherapy regimen at present. I am unsure exactly when his last treatment was. He presented to the hospital last night with chest pain. His cardiac enzymes have been negative overnight. Today, he states that he is ready to be discharged and wants to go home. He also reports a nose bleed earlier, but has now resolved. His PLT count on admission was 56. He had been receiving Eliquis 5 mg po BID. This was for history of PE. However, this was held as of this morning, due to the bleeding. Patient denies any other problems and again wishes to go home. He is waiting to see cardiology. Past Medical History Cardiac Medical History: Reports: Congestive Heart Failure, Hypertension, Pulmonary Embolism Denies: Coronary Artery Disease, Myocardial Infarction Pulmonary Medical History: Reports: Chronic Obstructive Pulmonary Disease (COPD) Denies: Asthma, Bronchitis, Pneumonia Neurological Medical History: Denies: Seizures Malignancy Medical History: Reports: Lung Cancer GI Medical History: Reports: Gastroesophageal Reflux Disease, Hiatal Hernia Denies: Crohn's Disease, Ulcerative Colitis Musculoskeltal Medical History: Denies: Arthritis Skin Medical History: Denies: Psoriasis Psychiatric Medical History: Denies: Depression Traumatic Medical History: Denies: Gunshot Wound, Pneumothorax Hematology: Denies: Anemia Past Surgical History Past Surgical History: Reports: Cholecystectomy - Lung surgery and gastric surgery, Other Social History Lives with: Spouse/Significant other Smoking Status: Never Smoker Frequency of Alcohol Use: None Hx Recreational Drug Use: No Drugs: None Hx Prescription Drug Abuse: No - Advance Directive Resuscitation Status: Full Code Family History Family History: None, Hypertension, Malignancy Parental Family History Reviewed: Yes Children Family History Reviewed: No Sibling(s) Family History Reviewed.: No Medication/Allergy Home Medications: Atenolol [Tenormin 50 mg Tablet] 50 mg PO QHS 06/07/18 Atorvastatin Calcium [Lipitor 40 mg Tablet] 40 mg PO QHS 06/07/18 Apixaban [Eliquis 5 mg Tablet] 5 mg PO Q12 #60 tablet 06/19/18 Albuterol Sulfate [Proair Hfa Inhalation Aerosol 8.5 gm Mdi] 1 puff IH Q4HP PRN 08/07/18 Bifidobacter. Bifidum/B.longum [Florajen Bifidoblend Capsule] 1 cap PO DAILY PRN 08/07/18 Cholecalciferol (Vitamin D3) [Vitamin D3 1000 Unit Tablet] 2,000 unit PO DAILY 08/07/18 Codeine Phosphate/Guaifenesin [Guaiatussin AC Liquid] 10 ml PO Q6HP PRN MDD FILLED 07/30 FOR 12 DAY SUPPLY 08/07/18 Diltiazem HCl [Diltiazem ER] 120 mg PO DAILY 08/07/18 Doxepin HCl [Silenor] 6 mg PO DAILY 08/07/18 Furosemide [Lasix 20 mg Tablet] 20 mg PO QAM 08/07/18 Potassium Chloride [Klor-Con 10 Meq Capsule ER] 10 meq PO DAILY 08/07/18 Prednisone [Deltasone 10 mg Tablet] 10 mg PO DAILY MDD LAST DOSE 08/09/18 Prednisone [Deltasone 5 mg Tablet] 5 mg PO DAILY MDD START 08/10 FOR 7 DAYS Ubidecarenone/Vit E Acet [Co Q-10 100 mg Softgel] 2 each PO DAILY 08/07/18 Umeclidinium Brm/Vilanterol Tr [Anoro Ellipta 62.5-25 Mcg INH] 1 each IH DAILY 08/07/18 Valsartan [Diovan 160 mg Tablet] 320 mg PO DAILY 08/07/18 Allergies/Adverse Reactions: No Known Allergies Allergy (Verified 07/30/18 16:16) Review of Systems Constitutional: ABSENT: fever(s), headache(s) Eyes: ABSENT: visual disturbances Ears: ABSENT: hearing changes Nose, Mouth, and Throat: ABSENT: sore throat Cardiovascular: PRESENT: chest pain. ABSENT: palpitations Respiratory: ABSENT: dyspnea Gastrointestinal: ABSENT: heartburn, nausea Genitourinary: ABSENT: dysuria Musculoskeletal: ABSENT: back pain Integumentary: ABSENT: rash Neurological: ABSENT: frequent falls, weakness Hematologic/Lymphatic: PRESENT: as per HPI Physical Exam Vital Signs: Temp Pulse Resp BP Pulse Ox 97.9 F 71 20 135/76 H 100 08/07/18 11:43 08/07/18 11:43 08/07/18 11:43 08/07/18 11:43 08/07/18 11:43 Intake & Output 08/06/18 08/07/18 08/08/18 06:59 06:59 06:59 Intake Total 437 237 Balance 437 237 Weight 97.6 kg General appearance: PRESENT: no acute distress, well-developed, well-nourished Exam: 73 year old male. Family is at bedside. Head exam: PRESENT: atraumatic Eye exam: PRESENT: EOMI Mouth exam: PRESENT: moist Neck exam: ABSENT: lymphadenopathy, tenderness Respiratory exam: PRESENT: unlabored, wheezes Cardiovascular exam: PRESENT: RRR, systolic murmur GI/Abdominal exam: PRESENT: soft. ABSENT: tenderness Extremities exam: ABSENT: pedal edema Musculoskeletal exam: PRESENT: normal inspection Neurological exam: PRESENT: alert, awake Psychiatric exam: PRESENT: appropriate affect Skin exam: PRESENT: normal color Results Laboratory Results: 08/07/18 04:41 08/07/18 04:41 WBC 6.1 RBC 3.58 L Hgb 11.4 L Hct 34.6 L MCV 97 MCH 31.8 MCHC 32.9 RDW 19.0 H Plt Count 57 L Seg Neutrophils % 68.2 Lymphocytes % 17.7 Monocytes % 8.5 Eosinophils % 4.9 Basophils % 0.7 Absolute Neutrophils 4.1 Absolute Lymphocytes 1.1 Absolute Monocytes 0.5 Absolute Eosinophils 0.3 Absolute Basophils 0.0 08/07/18 08/07/18 08/07/18 04:41 04:41 11:27 Creatine Kinase 23 L 23 L CK-MB (CK-2) 0.74 Troponin I 0.320 08/07/18 11:27 Creatine Kinase CK-MB (CK-2) 0.68 Troponin I 0.337 Impressions: Chest X-Ray 08/06/18 19:54 IMPRESSION: Improved radiographic appearance of the chest without significant residual pleural effusion. Status: Image reviewed by me Assessment & Plan - Diagnosis (1) Thrombocytopenia Is this a current diagnosis for this admission?: Yes Plan: His baseline PLT count is >100. However, during previous admissions, his PLT count has been low as well. Although I do not know exactly which treatment he is on for his lung cancer, in general, immunotherapy should not cause a low PLT count. I will watch this closely. (2) Epistaxis Is this a current diagnosis for this admission?: Yes Plan: Now resolved. I would continue to hold Eliquis for any active bleeding or PLT < 50. (3) Lung cancer Qualifiers: Laterality: right Lung location: upper lobe of lung Qualified Code(s): C34.11 - Malignant neoplasm of upper lobe, right bronchus or lung Is this a current diagnosis for this admission?: Yes Plan: Treatment currently on hold. Consider restarting after discharge. He is followed in [place] for this. However, I will be happy to continue to follow him locally as well. (4) Hypercalcemia Is this a current diagnosis for this admission?: Yes Plan: This is mild. Await repeat levels. Consider treatment if continues. He is currently asymptomatic from this. - Plan Summary Plan Summary: Thank you for this consultation. I am happy to continue to follow him in house and as out patient. Please call me if needed.
[2018-08-07 17:33] LABS: CREATINE KINASE MB 0.75 ng/mL (<4.55); TROPONIN I 0.356 ng/mL
[2018-08-07] MEDS ORDERED: NITROGLYCERIN 15 MG (0.6 MG/1 HR) PATCH.TD24 TD ONE (18:30)
[2018-08-07] MEDS ORDERED: NITROGLYCERIN 15 MG (0.6 MG/1 HR) PATCH.TD24 ONE (18:48)
--- NOTE | 2018-08-07 21:34 | PDOC CONSULTATION ---
Consultation-Blank Consultation: CARDIOLOGY CONSULTATION by Dr. Shandra Salgado on 08/07/2018. Patient seen at 3 PM on 08/07/2018. REASON FOR CONSULTATION: Patient with a history of lung cancer and prior history of pulmonary embolism. With right-sided chest pain, and elevated troponin levels. HISTORY OF PRESENT ILLNESS: Patient is a 73-year-old Afro-[place]amese male, with a history of hypertension, history of Right lung cancer, history of pulmonary embolism, history of thrombocytopenia, states since the past 12 hours he has been having right-sided chest pressure/pain, not pleuritic, without any associated cough, but with shortness of breath, and with no wheezing. His troponin I was elevated, in spite of the fact that the patient is no typical or atypical anginal chest pains. In the emergency room the patient was offered to be transferred to tertiary care center for possible cardiac catheterization, but the patient refused this. He has an appointment with the cancer Center of [facility] in [place] on 08/08/2018, and is very anxious to keep the appointment. He denies any PND orthopnea. At present the patient has no chest pain. There is no TIA CVA symptoms. There is no leg edema. There is no recurrence of atrial fibrillation or multifocal atrial tachycardia. The patient denies any palpitations. The patient this morning had some nosebleeds and his Eliquis has been stopped. Note that the patient's platelet count is 56, 000 yesterday and 57,000 today. At present the patient has no further nosebleeds. PAST MEDICAL HISTORY: He has a history of hypertension, he has a history of lung cancer, with recurrence, and was admitted in April 2018 with postoperative obstructive pneumonia. He has in the past had chronic kidney disease, at present his GFR is normal. He has no history of coronary artery disease. No prior history of LA. He has no history of congestive heart failure. He has a history of proximal atrial fibrillation, there was one documented episode in April 2018, and he has also had multifocal atrial tachycardia. He has no history of syncope. He has no history of diabetes mellitus. There is no history of congestive heart failure. There is no history of TIA CVA. There is no history of headaches migraines or seizures. PAST SURGICAL HISTORY is positive for right upper lobectomy of the lung. ALLERGIES the patient has no known allergies. Social history: The patient is a former smoker, quit smoking many years ago. DISPOSITION: The patient is a full code his is his surrogate healthcare decision maker. REVIEW OF SYSTEMS: Constitutional: Denies any fever chills or rigors. Complains of generalized fatigue. HEAD: No history of headaches or migraines or head injury. EYES: No history of amblyopia diplopia, no history of amaurosis fugax. EARS: No history of hearing loss no history of tinnitus. No history of vertigo. NOSE: Recent nosebleed this a.m. No history of hayfever. No history of nasal polyps. MOUTH: No history of altered taste sensation. No ulcers in the mouth. No bleeding from the gums. THROAT: No history of odynophagia or dysphagia. No recurrent sore throats. SKIN: There is no petechia or ecchymosis. There are no no history of bleeding into the skin. No pruritus. No eczema. No alert discoloration of the skin. NECK: No history of neck pain. No swelling in the neck. No goiter. LUNGS: No history of asthma or COPD no history of symptoms of upper or lower respiratory tract infection. The patient does have a history of lung cancer. With recurrence he is being he is going to be seen in [facility] in [place]. No hemoptysis. He has a past history of pulmonary embolism. His Eliquis had to be stopped today due to nosebleeds. Prior to that he has been taking his Eliquis regularly. The patient admitted with right-sided chest pain. This is not pleuritic. There is no hemoptysis. CARDIAC/heart: History of hypertension present no anginal symptoms. Past history of one episode of atrial paroxysmal atrial fibrillation, with no recurrence. History of multifocal atrial tachycardia with no recurrence. No prior history of congestive heart failure. No history of PND orthopnea. No leg edema. No syncope. No palpitations. GI: No history of GI bleed no history of jaundice. No history of fatty food intolerance. No history of altered bowel movements. Denies abdominal pain. MUSCULOSKELETAL: Denies arthritis or collagen vascular disease. RENAL: Past history of kidney disease. At present GFR is normal. No symptoms of UTI. No hematuria pyuria or dysuria. ENDOCRINE: No history of diabetes mellitus or thyroid disease. No history of polydipsia polyuria no history of heat or cold intolerance. PLAYGROUND ATTENDANT: No history of TIA CVA. No history of headaches migraines or seizures. PSYCHIATRIC: No history of anxiety or depression. No suicidal ideation. No homicidal ideation. HEMATOLOGICAL: The patient has thrombocytopenia. The patient did have some nosebleeds, but not enough to cause anemia. VASCULAR: No history of calf or buttock claudication. No history of DVT. PHYSICAL EXAMINATION: The patient is well-built and well-nourished. At present in no acute distress. 08/07/18 15:20 Temperature 98.6 F Temperature Oral Source Pulse Rate 67 Respiratory 20 Rate Blood Pressure 141/72 H Blood Pressure 95 Mean BP Location Right Arm BP Position Supine O2 Sat by Pulse 98 Oximetry Oxygen Flow 2.00 Rate Oxygen Delivery Nasal Cannula Method HEAD: Is atraumatic normocephalic. EYES: Pupils are equal round regular react to light accommodation. Extra ocular movements are normal. There is no clinical pallor. There is no scleral icterus. EARS: Tympanic membranes are intact. External auditory canals are clear. NOSE: Nasal mucous membranes are moist. There is no information of nasal mucous membrane at present there is no bleeding. There is no deviated nasal septum. MOUTH: MUCOUS MEMBERS OF MOUTH ARE MOIST TONGUE IS MOIST THERE IS NO ULCERS THERE IS NO BLEEDING FROM THE GUMS. THROAT: There is no redness of the oropharynx. There is no exudates. SKIN: There is no petechia or ecchymosis. There is no skin rashes or skin lesions. NECK: Is supple. There is no JVD. Carotids are equal there is no bruit. There is no lymphadenopathy. There is no goiter. There is no accessory muscles of respiration use. Trachea central. LUNGS: Shows absent breath sounds at right base and the right middle lobe. The rest of the lungs are clear. There is no rales of CHF. HEART: S1-S2 is heard there is no S3 gallop there is no S3 gallop there is systolic murmur left sternal border and apex without radiation. There is no rub. ABDOMEN: Is soft nontender there is no paraspinal megaly bowel sounds are well heard. EXTREMITIES: Femorals are well felt. There is no femoral bruits. Leg pulses well felt. There is no pedal edema. There is no DVT or sialitis. There is no calf tenderness. There is no signs or clubbing. PLAYGROUND ATTENDANT: The patient is conscious awake alert oriented x3 with no focal deficits. PSYCHIATRIC: The patient judgment and insight are intact his affect is normal. 08/06/18 08/06/18 08/06/18 20:34 20:34 20:34 WBC Hgb Hct Plt Count 56 L Sodium 141.9 Potassium 4.5 Chloride 106 Carbon Dioxide 30 Anion Gap 6 BUN 27 H Creatinine 1.35 H Est GFR ( Amer) > 60 Glucose 120 H Calcium 10.5 H Total Bilirubin 0.8 Direct Bilirubin 0.3 Neonat Total Bilirubin Not Reportable Neonat Direct Bilirubin Not Reportable Neonat Indirect Bili Not Reportable AST 33 ALT 26 Alkaline Phosphatase 147 H Creatine Kinase CK-MB (CK-2) Troponin I 0.373 Total Protein 6.5 Albumin 3.5 08/06/18 08/07/18 08/07/18 22:47 04:41 04:41 WBC Hgb Hct Plt Count Sodium Potassium Chloride Carbon Dioxide Anion Gap BUN Creatinine Est GFR ( Amer) Glucose Calcium Total Bilirubin Direct Bilirubin Neonat Total Bilirubin Neonat Direct Bilirubin Neonat Indirect Bili AST ALT Alkaline Phosphatase Creatine Kinase 23 L CK-MB (CK-2) 0.74 Troponin I 0.383 0.320 Total Protein Albumin 08/07/18 08/07/18 08/07/18 04:41 11:27 11:27 WBC 6.1 Hgb 11.4 L Hct 34.6 L Plt Count 57 L Sodium Potassium Chloride Carbon Dioxide Anion Gap BUN Creatinine Est GFR ( Amer) Glucose Calcium Total Bilirubin Direct Bilirubin Neonat Total Bilirubin Neonat Direct Bilirubin Neonat Indirect Bili AST ALT Alkaline Phosphatase Creatine Kinase 23 L CK-MB (CK-2) 0.68 Troponin I 0.337 Total Protein Albumin 08/07/18 08/07/18 16:40 16:40 WBC Hgb Hct Plt Count Sodium Potassium Chloride Carbon Dioxide Anion Gap BUN Creatinine Est GFR ( Amer) Glucose Calcium Total Bilirubin Direct Bilirubin Neonat Total Bilirubin Neonat Direct Bilirubin Neonat Indirect Bili AST ALT Alkaline Phosphatase Creatine Kinase 21 L CK-MB (CK-2) 0.75 Troponin I 0.356 Total Protein Albumin 08/06/18 21:31 Aspirin [Aspirin 81 mg Chewable Tablet] 324 mg PO NOW ONE Atorvastatin Calcium [Lipitor 80 mg Tablet] 80 mg PO NOW ONE Morphine Sulfate [Morphine 10 mg/ml Inj] 4 mg IV Q2HP PRN 08/06/18 23:57 Acetaminophen [Tylenol 325 mg Tablet] 650 mg PO Q4HP PRN 08/07/18 05:42 Ipratropium/Albuterol Sulfate [Duoneb 3 ml Ampul] 3 ml NEB RTQ4HP PRN Oxycodone HCl [Oxycontin Sr 40 mg Tablet] 40 mg PO Q12HP PRN 08/07/18 10:00 Atenolol [Tenormin 50 mg Tablet] 50 mg PO DAILY 08/07/18 12:00 Albuterol Sulfate [Proair Hfa Inhalation Aerosol 8.5 gm Mdi] 1 puff IH Q4HP PRN 08/07/18 12:06 Guaifenesin/Codeine Phos [Robitussin-AC Liquid 5 ml Udcup] 10 ml PO Q6HP PRN 08/07/18 18:30 Nitroglycerin [Nitro-Dur 15 mg (0.6 mg/1 Hr) Transderm Patch] 1 each TD NOW ONE 08/07/18 18:48 Nitroglycerin [Nitro-Dur 15 mg (0.6 mg/1 Hr) Transderm Patch] 1 each .ROUTE .STK-MED ONE 08/07/18 22:00 Atorvastatin Calcium [Lipitor 40 mg Tablet] 40 mg PO QHS 08/08/18 08:00 Furosemide [Lasix 20 mg Tablet] 20 mg PO QAM 08/08/18 10:00 Bifidobacter. Bifidum/B.longum [Florajen Bifidoblend Capsule] 1 cap PO DAILY Cholecalciferol (Vitamin D3) [Vitamin D3 1000 Unit Tablet] 2,000 unit PO DAILY Diltiazem HCl [Cardizem Cd 120 mg Capsule] 120 mg PO DAILY Doxepin HCl [Silenor] 6 mg PO DAILY Potassium Chloride [Klor-Con 10 Meq Capsule ER] 10 meq PO DAILY Prednisone [Deltasone 10 mg Tablet] 10 mg PO DAILY Prednisone [Deltasone 5 mg Tablet] 5 mg PO DAILY Ubidecarenone/Vit E Acet [Co Q-10 100 mg Softgel] 2 each PO DAILY Umeclidinium Brm/Vilanterol Tr [Anoro Ellipta 62.5-25 Mcg INH] 1 each IH DAILY EKG: Shows sinus rhythm. 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 No acute ischemic changes. ECHOCARDIOGRAM: Shows probably no wall motion abnormality and normal LV ejection fraction. There is moderate pulmonary hypertension with right ventricle systolic pressure of degenerative 56 mmHg. [Please see report]. CHEST X-ray: There is improved aeration of the right lung. There is elevation of the right hemidiaphragm. There is consolidation in the right lower lobe. Valsartan [Diovan 160 mg Tablet] 320 mg PO DAILY IMPRESSION/RECOMMENDATION: 1. Troponin I elevation in the non-ST elevation LA range. In spite of the chest pain being on the right side cannot entirely exclude non-ST elevation LA. Also the troponin elevation could be secondary right ventricular strain due to pulmonary hypertension. [Note that there is a high probability of the right ventricular systolic pressure being underestimated due to poor interrogation of the tricuspid valve and the echocardiogram.]. Note for a stress test we have to wait until the troponins trend down. The patient states that he cannot stay in the hospital since he has to keep up his appointment in [place] tomorrow there is on 08 August at 12 noon at in [place]. Cardiac catheterization does have high risk of bleeding in view of the patient's platelets being low. Also if percutaneous revascularization be done then the patient has to be on dual antiplatelet agents, with this being impossible due to the patient's thrombocytopenia. Hence would strongly recommend maximize medical therapy. Continue the patient's beta-stef and cardiac Cardizem, and also place the patient on Transderm Nitropatch. There is a risk of extension of the LA, sudden and arrhythmias. The patient and the are aware. They are anxious to keep an appointment with the cancer Center of [facility] tomorrow. 2. Right-sided chest pain? Etiology 3. Recurrent right lung cancer. 4. Thrombocytopenia, with recent nosebleeds. 5. Hypertension: Seems to be well-controlled. 6. Moderate pulmonary hypertension the measured pulmonary pressures could be an underestimation, since the quality of the echo is not very good. This has been discussed with the patient patient's . 7. History of pulmonary embolism. Note that the patient's on continuous Eliquis therapy until this a.m. when Eliquis was stopped due to nosebleeds. The patient has not had any further nosebleeds. Would recommend restarting the patient's Eliquis. 8. History of proximal atrial fibrillation, and history of multifocal atrial tachycardia, with no recurrence. Medications reviewed, medication changes recommended. Discussed with the patient and patient's . Discussed with attending physician Dr. Patton. Note 60 minutes spent on this patient with more than 50% of time spent in direct patient care. Medical decision making is of high complexity. The patient most likely would be discharged early tomorrow morning so that he can keep his appointment with [facility] in [place] which is at 12 noon on 08/08/2018.
[2018-08-07] MEDS ORDERED: ATORVASTATIN CALCIUM 40 MG TABLET PO SCH (22:00)
[2018-08-08 00:01] VITALS: BP 168/86
[2018-08-08] MEDS ORDERED: FUROSEMIDE 20 MG TABLET PO SCH (08:00)
[2018-08-08] MEDS ORDERED: CHOLECALCIFEROL (D3) 1,000 UNIT TABLET PO SCH (10:00)
[2018-08-08] MEDS ORDERED: POTASSIUM CHLORIDE 10 MEQ CAPSULE.ER PO SCH (10:00)
[2018-08-08] MEDS ORDERED: UBIDECARENONE PO SCH (10:00)
[2018-08-08] MEDS ORDERED: (PENDING PHARMACY ID) (Umeclidinium Brm/Vilanterol Tr [Anoro Ellipta 62.5-25 Mcg Inh] 1 EA IH SCH (10:00)
[2018-08-08] MEDS ORDERED: DILTIAZEM HCL 120 MG CAP.SR.24H PO SCH (10:00)
[2018-08-08] MEDS ORDERED: PREDNISONE 10 MG TABLET PO SCH (10:00)
[2018-08-08] MEDS ORDERED: VALSARTAN 160 MG TABLET PO SCH (10:00)
[2018-08-08] MEDS ORDERED: (PENDING PHARMACY ID) (Doxepin Hcl [Silenor] 6 MG) PO SCH (10:00)
[2018-08-08] MEDS ORDERED: (PENDING PHARMACY ID) (Diltiazem Hcl [Diltiazem Er] 120 MG) PO SCH (10:00)
[2018-08-08] MEDS ORDERED: PREDNISONE 5 MG TABLET PO SCH (10:00)
[2018-08-08] MEDS ORDERED: VIT E ACET PO SCH (10:00)
[2018-08-08] MEDS ORDERED: [UNRECOGNIZED DRUG - MIXTURE] PO SCH (10:00)
--- NOTE | 2018-08-09 15:10 | PDOC DISCHARGE SUMMARY ---
General - Admit/Disc Date/PCP Admission Date/Primary Care Provider: 08/07/18 00:02 SADIE MCCRAY MD Discharge Date: 08/07/18 - Discharge Diagnosis (1) Chest pain Is this a current diagnosis for this admission?: Yes Summary: Patient's initial workup was all stable according to the iuss acoustic analyst follow outpatient (2) Elevated troponin Is this a current diagnosis for this admission?: Yes Summary: No sign of acute coronary syndromes per cardiology follow outpatient (3) Anemia Is this a current diagnosis for this admission?: Yes Summary: Currently follow with the hospital aide (4) COPD (chronic obstructive pulmonary disease) Is this a current diagnosis for this admission?: Yes (5) Congestive heart failure Is this a current diagnosis for this admission?: Yes (6) Esophageal stricture Is this a current diagnosis for this admission?: Yes (7) Hypertension Is this a current diagnosis for this admission?: Yes (8) Lung cancer Is this a current diagnosis for this admission?: Yes Summary: Patient is currently followed by [facility] for treatment tomorrow (9) Multifocal atrial tachycardia Is this a current diagnosis for this admission?: Yes (10) NSTEMI (non-ST elevated myocardial infarction) Is this a current diagnosis for this admission?: Yes Summary: According to the iuss acoustic analyst patient's discharge not a candidate for any cardiac thrombocytopenia and other multiple comorbidity (11) Thrombocytopenia Is this a current diagnosis for this admission?: Yes Summary: As per discussed with the hospital aide locally here hold the Eliquis due to the nosebleed (12) Nosebleed Is this a current diagnosis for this admission?: Yes Summary: Currently not actively bleeding we will hold the Eliquis due to thrombocytopenia (13) Bilateral pulmonary embolism Is this a current diagnosis for this admission?: Yes - Additional Information Resuscitation Status: Full Code Discharge Diet: Cardiac Discharge Activity: Activity As Tolerated Home Medications: Atenolol [Tenormin 50 mg Tablet] 50 mg PO QHS 06/07/18 Atorvastatin Calcium [Lipitor 40 mg Tablet] 40 mg PO QHS 06/07/18 Apixaban [Eliquis 5 mg Tablet] 5 mg PO Q12 #60 tablet 06/19/18 Albuterol Sulfate [Proair Hfa Inhalation Aerosol 8.5 gm Mdi] 1 puff IH Q4HP PRN 08/07/18 Bifidobacter. Bifidum/B.longum [Florajen Bifidoblend Capsule] 1 cap PO DAILY PRN 08/07/18 Cholecalciferol (Vitamin D3) [Vitamin D3 1000 Unit Tablet] 2,000 unit PO DAILY 08/07/18 Codeine Phosphate/Guaifenesin [Guaiatussin AC Liquid] 10 ml PO Q6HP PRN MDD FILLED 07/30 FOR 12 DAY SUPPLY 08/07/18 Diltiazem HCl [Diltiazem ER] 120 mg PO DAILY 08/07/18 Doxepin HCl [Silenor] 6 mg PO DAILY 08/07/18 Furosemide [Lasix 20 mg Tablet] 20 mg PO QAM 08/07/18 Potassium Chloride [Klor-Con 10 Meq Capsule ER] 10 meq PO DAILY 08/07/18 Prednisone [Deltasone 10 mg Tablet] 10 mg PO DAILY MDD LAST DOSE 08/09/18 Prednisone [Deltasone 5 mg Tablet] 5 mg PO DAILY MDD START 08/10 FOR 7 DAYS Ubidecarenone/Vit E Acet [Co Q-10 100 mg Softgel] 2 each PO DAILY 08/07/18 Umeclidinium Brm/Vilanterol Tr [Anoro Ellipta 62.5-25 Mcg INH] 1 each IH DAILY 08/07/18 Valsartan [Diovan 160 mg Tablet] 320 mg PO DAILY 08/07/18 History of Present Illness History of Present Illness: MEG MONTGOMERY is a 73 year old male this is a 73-year-old male with a history of lung cancer currently on immunotherapy and also history of the pulmonary embolism and history of the COPD and congestive heart failure came to the emergency department with the complaint of right-sided chest pain which lasted 12 hours patient initial chest x-ray was all stable EKG was all stable no acute changes was patient's troponin was elevated to the non-ST NC range The ER physicians offer the patient was transported to cardiac catheter tertiary center but patient refused to do that repeat cardiac enzyme is pretty much the same patient is already on Eliquis When I saw the patient on the floor patient's denied any chest pain denied any shortness of the breath patient have an episode of the nosebleed which currently put the packing and no actively bleeding His platelet count is only 56 Patient still wants to go to the [facility] while patient is receiving his immunotherapy and have appointment tomorrow Patient still also received 1 dose of the immunotherapy 2 weeks back Since family at the bedside discussed the all the test reports and concern . discuss with the cardiology locally here order the echocardiogram Hospital Course Hospital Course: This is a 73-year-old male basically present in the emergency department with a right-sided chest painAnd patient initial workup was negative except patient's troponin is elevated She did have a no EKG changes no left-sided chest pain no other symptoms pt refuse to go to the tertiary center In the hospital patients seen by the iuss acoustic analyst and patient had a echocardiogram done was all stable patients have no EKG changes no chest pain Patient also seen by hospital aide and oncologist due to the thrombocytopenia and ongoing lung cancer Patient Eliquis was hold due to the thrombocytopenia and the nosebleed episode Son also currently follow with the [facility] currently on immunotherapy and patients insist to go have appointment tomorrow and want to be discharged Discussed with the patient and the family understand very well with ongoing problems and discussed with the cardiology and hospital aide and suggest the patient is can be discharged patient is to follow outpatient Discussed with the patient any nosebleed any chest pain was to follow in the ER Physical Exam Vital Signs: Temp Pulse Resp BP Pulse Ox 98.2 F 87 20 168/86 H 91 L 08/07/18 23:42 08/07/18 23:42 08/07/18 23:42 08/07/18 23:42 08/07/18 23:42 Intake & Output 08/08/18 08/09/18 08/10/18 06:59 06:59 06:59 Intake Total 674 Balance 674 General appearance: PRESENT: no acute distress, well-developed, well-nourished Head exam: PRESENT: atraumatic, normocephalic Eye exam: PRESENT: conjunctiva pink, EOMI, PERRLA. ABSENT: scleral icterus Ear exam: PRESENT: normal external ear exam Mouth exam: PRESENT: moist, tongue midline Neck exam: PRESENT: full ROM. ABSENT: carotid bruit, JVD, lymphadenopathy, thyromegaly Respiratory exam: PRESENT: clear to auscultation jim Cardiovascular exam: PRESENT: RRR. ABSENT: diastolic murmur, rubs, systolic murmur Pulses: PRESENT: normal dorsalis pedis pul, +2 pedal pulses bilateral Vascular exam: PRESENT: normal capillary refill GI/Abdominal exam: PRESENT: normal bowel sounds, soft. ABSENT: distended, guarding, mass, organolmegaly, rebound, tenderness Rectal exam: PRESENT: deferred Musculoskeletal exam: PRESENT: ambulatory Neurological exam: PRESENT: alert, awake, oriented to person, oriented to place , oriented to time, oriented to situation, CN II-XII grossly intact. ABSENT: motor sensory deficit Psychiatric exam: PRESENT: appropriate affect, normal mood. ABSENT: homicidal ideation, suicidal ideation Skin exam: PRESENT: dry, intact, warm. ABSENT: cyanosis, rash Results Laboratory Results: 08/07/18 04:41 08/07/18 08/07/18 08/07/18 04:41 04:41 11:27 Creatine Kinase 23 L 23 L CK-MB (CK-2) 0.74 Troponin I 0.320 08/07/18 08/07/18 08/07/18 11:27 16:40 16:40 Creatine Kinase 21 L CK-MB (CK-2) 0.68 0.75 Troponin I 0.337 0.356 Impressions: Chest X-Ray 08/06/18 19:54 IMPRESSION: Improved radiographic appearance of the chest without significant residual pleural effusion. Qualifiers - * PATIENT BEING DISCHARGED WITH ANY OF THE FOLLOWING DIAGNOSIS: No VTE patient discharged on overlapping Therapy?: Yes Plan Time Spent: Greater than 30 Minutes - Follow outpatients oncologist and hospital aide and iuss acoustic analyst
== END 2018-08-08 03:11 | disposition home or self-care (01) ==
LOC: ER 18:20 → EH 08-07 00:02 → 3W 08-07 02:23
PROVIDERS: ADMIT Family Medicine; ATTEND Family Medicine
DX: R07.9 Chest pain, unspecified (principal); R79.89 Other specified abnormal findings of blood chemistry; D64.9 Anemia, unspecified; J44.9 Chronic obstructive pulmonary disease, unspecified; K22.2 Esophageal obstruction; C34.11 Malignant neoplasm of upper lobe, right bronchus or lung; I47.1 Supraventricular tachycardia; I21.4 Non-ST elevation (NSTEMI) myocardial infarction; D69.6 Thrombocytopenia, unspecified; R04.0 Epistaxis; I27.20 Pulmonary hypertension, unspecified; I48.0 Paroxysmal atrial fibrillation; I13.0 Hypertensive heart and chronic kidney disease with heart failure and stage 1 through stage 4 chronic kidney disease, or unspecified chronic kidney disease; I50.9 Heart failure, unspecified; N18.9 Chronic kidney disease, unspecified; E83.52 Hypercalcemia; I45.10 Unspecified right bundle-branch block; Z86.711 Personal history of pulmonary embolism; Z79.899 Other long term (current) drug therapy; Z79.02 Long term (current) use of antithrombotics/antiplatelets; Z87.891 Personal history of nicotine dependence; Z90.2 Acquired absence of lung [part of]; Z90.49 Acquired absence of other specified parts of digestive tract; Z82.49 Family history of ischemic heart disease and other diseases of the circulatory system
CPT/HCPCS: 93005 ×2; 99285; 36415 ×2; 82553; 82550; 85025 ×2; 80053; 84484 ×2; 93306; 71046; 93010 ×2; G0378 ×3; A9270 ×4; J2270 ×2; J3490

== ENCOUNTER 2018-08-21 18:31 | Emergency (ER) | payer MEDICARE, BC ==
--- NOTE | 2018-08-21 19:45 | RADIOLOGY REPORT (SQ) ---
EXAM DESCRIPTION: CT HEAD WITHOUT COMPLETED DATE/TIME: 08/21/2018 7:37 pm REASON FOR STUDY: fall-anticoagulation COMPARISON: None. TECHNIQUE: Axial images acquired through the brain without intravenous contrast. Images reviewed wi th bone, brain and subdural windows. Additional sagittal and coronal reconstructions were generated. Images stored on PACS. All CT scanners at this facility use dose modulation, iterative reconstruction, and/or weight based d osing when appropriate to reduce radiation dose to as low as reasonably achievable (ALARA). [facility]: Dose Right [facility]: CareDose [facility]: Dose Right [facility]: Teradose 4D [facility]: Smart SA Ignite RADIATION DOSE: CT Rad equipment meets quality standard of care and radiation dose reduction techniq ues were employed. CTDIvol: 53.2 mGy. DLP: 964 mGy-cm. mGy. LIMITATIONS: None. FINDINGS: VENTRICLES: Prominent. CEREBRUM: No masses. No hemorrhage. No midline shift. Areas of low density in the white matter mos t likely due to chronic micro-vascular ischemic change. No evidence for acute infarction. CEREBELLUM: No masses. No hemorrhage. No alteration of density. No evidence for acute infarction. EXTRAAXIAL SPACES: Mild age-related involutional change. No fluid collections. No masses. ORBITS AND GLOBE: No intra- or extraconal masses. Normal contour of globe without masses. CALVARIUM: No fracture. PARANASAL SINUSES: No fluid or mucosal thickening. SOFT TISSUES: No mass or hematoma. OTHER: No other significant finding. IMPRESSION: MILD CHRONIC CHANGES OF ATROPHY AND MICROVASCULAR ISCHEMIA. NO ACUTE PROCESS. EVIDENCE OF ACUTE STROKE: NO. TECHNICAL DOCUMENTATION: JOB ID: [id number] Quality ID # [id number]: Final reports with documentation of one or more dose reduction techniques (e.g., Au tomated exposure control, adjustment of the mA and/or kV according to patient size, use of iterative reconstruction technique) 2010 [employer]- All Rights Reserved Reading location - IP/workstation name: [email or web address]
--- NOTE | 2018-08-21 20:02 | RADIOLOGY REPORT (SQ) ---
EXAM DESCRIPTION: CHEST SINGLE VIEW COMPLETED DATE/TIME: 08/21/2018 7:52 pm REASON FOR STUDY: chest pain COMPARISON: 08/06/2018 EXAM PARAMETERS: NUMBER OF VIEWS: One view. TECHNIQUE: Single frontal radiographic view of the chest acquired. RADIATION DOSE: NA LIMITATIONS: None. FINDINGS: LUNGS AND PLEURA: No opacities, masses or pneumothorax. No pleural effusion. MEDIASTINUM AND HILAR STRUCTURES: Chronic right hilar changes. HEART AND VASCULAR STRUCTURES: Heart normal in size. Normal vasculature. BONES: No acute findings. HARDWARE: None in the chest. OTHER: No other significant finding. IMPRESSION: Chronic changes. No acute findings. TECHNICAL DOCUMENTATION: JOB ID: [id number] [employer]- All Rights Reserved Reading location - IP/workstation name: [email or web address]
--- NOTE | 2018-08-21 20:03 | RADIOLOGY REPORT (SQ) ---
EXAM DESCRIPTION: L SPINE WHOLE COMPLETED DATE/TIME: 08/21/2018 7:52 pm REASON FOR STUDY: back pain COMPARISON: None. NUMBER OF VIEWS: Five views including obliques. TECHNIQUE: AP, lateral, oblique, and sacral radiographic images acquired of the lumbar spine. LIMITATIONS: None. FINDINGS: MINERALIZATION: Normal. SEGMENTATION: Normal. No transitional anatomy. ALIGNMENT: Normal. VERTEBRAE: Maintained height. No fracture or worrisome bone lesion. DISCS: Degenerative disc disease L4-5 and L5-S1. POSTERIOR ELEMENTS: Pedicles and facets are intact. No pars defect or posterior arch defects. HARDWARE: None in the spine. PARASPINAL SOFT TISSUES: Normal. PELVIS: Intact as visualized. No fractures or worrisome bone lesions. SI joints intact. OTHER: No other significant finding. IMPRESSION: Degenerative disc disease L4-5 and L5-S1. TECHNICAL DOCUMENTATION: JOB ID: [id number] [employer]- All Rights Reserved Reading location - IP/workstation name: [email or web address]
--- NOTE | 2018-08-21 21:36 | ER Document Report ---
ED Fall - General Chief Complaint: Fall Injury Stated Complaint: FALL Time Seen by Provider: 08/21/18 19:06 Mode of Arrival: Wheelchair Information source: Patient Notes: 89-year-old man presents to the emergency room after a fall this afternoon. Patient states he was in the kitchen at approximately 2 PM when he lost balance and fell. He believes he fell on his buttocks. He states he did not hit his head but had a small headache at the time. He complains of lower back pain and upper back pain. Initial state that he added some abdominal discomfort. He denies any nausea vomiting. Patient has a history of lung cancer and is on oxygen at home. He is followed by Dr. Mccray. He gets chemotherapy in [place] (his next treatment is September 16). TRAVEL OUTSIDE OF THE [place] IN LAST 30 DAYS: No - HPI Occurred: This afternoon Where: Home Context: Slipped, Lost balance Associated symptoms: denies: Lost consciousness, Dazed/confused, Seizure, Difficulty breathing Location of injury/pain: Back Quality of pain: Dull Severity: Mild Pain Level: 1 - Related data Allergies/Adverse Reactions: No Known Allergies Allergy (Verified 07/30/18 16:16) Past Medical History - General Information source: Patient - Social History Smoking Status: Unknown if Ever Smoked Cigarette use (# per day): No Chew tobacco use (# tins/day): No Frequency of alcohol use: None Drug Abuse: None Lives with: Spouse/Significant other Family History: None, Hypertension, Malignancy Patient has suicidal ideation: No Patient has homicidal ideation: No - Past Medical History Cardiac Medical History: Reports: Hx Congestive Heart Failure, Hx Hypertension, Hx Pulmonary Embolism Denies: Hx Coronary Artery Disease, Hx Heart Attack Pulmonary Medical History: Reports: Hx COPD Denies: Hx Asthma, Hx Bronchitis, Hx Pneumonia Neurological Medical History: Denies: Hx Cerebrovascular Accident, Hx Seizures Renal/ Medical History: Denies: Hx Peritoneal Dialysis Malignancy Medical History: Reports Hx Lung Cancer GI Medical History: Reports: Hx Gastroesophageal Reflux Disease, Hx Hiatal Hernia. Denies: Hx Crohn's Disease, Hx Ulcerative Colitis Musculoskeletal Medical History: Denies Hx Arthritis Skin Medical History: Denies Hx Psoriasis Psychiatric Medical History: Denies: Hx Depression Traumatic Medical History: Denies: Hx Gunshot Wound, Hx Pneumothorax Past Surgical History: Reports: Hx Cholecystectomy - Lung surgery and gastric surgery, Other - Immunizations Hx Diphtheria, Pertussis, Tetanus Vaccination: Yes Hx Pneumococcal Vaccination: 06/13/14 Review of Systems - Review of Systems Constitutional: denies: Chills, Fever EENT: No symptoms reported Cardiovascular: No symptoms reported Respiratory: No symptoms reported Gastrointestinal: No symptoms reported Genitourinary: No symptoms reported Male Genitourinary: No symptoms reported Musculoskeletal: See HPI Skin: No symptoms reported Hematologic/Lymphatic: No symptoms reported Neurological/Psychological: No symptoms reported Physical Exam - Vital signs Vitals: Temp Pulse Resp BP Pulse Ox 97.5 F 81 20 140/52 H 94 08/21/18 18:33 08/21/18 18:33 08/21/18 18:33 08/21/18 18:33 08/21/18 18:33 Notes: Physical exam: GENERAL: Patient is alert and oriented x3, no acute distress. He is on 2-1/2 L of nasal cannula oxygen. HEAD: Atraumatic, normocephalic. EYES: Pupils equal round and reactive to light, extraocular movements intact, sclera anicteric, conjunctiva are normal. ENT: TMs normal, nares patent, oropharynx clear without exudates. Moist mucous membranes. NECK: Normal range of motion, supple without obvious mass or JVD. LUNGS: Breath sounds clear to auscultation bilaterally and equal. No wheezes rales or rhonchi. Back: No cervical spine tenderness. He does have lower lumbar paraspinal tenderness and some lower thoracic paraspinal tenderness. There is no obvious crepitus to the bone. HEART: Regular rate and rhythm without murmurs, rubs or gallops. ABDOMEN: Soft, normoactive bowel sounds. No tenderness to palpation. No guarding, no rebound. No masses appreciated. EXTREMITIES: Normal range of motion, no pitting or edema. No clubbing or cyanosis. NEUROLOGICAL: Cranial nerves II through XII grossly intact. Normal speech, moving all extremities. PSYCH: Normal mood, normal affect. SKIN: Warm, Dry, normal turgor, no rashes or lesions noted. Course - Re-evaluation Re-evalutation: 08/21/18 21:39 On reassessment, the patient states he is feeling better. He denies any abdominal pain at this time. Repeat abdominal exam is soft and nontender. Patient is drinking ice water and no complaints of nausea. - Vital Signs Vital signs: Temp Pulse Resp BP Pulse Ox 97.5 F 82 19 121/78 97 08/21/18 18:33 08/21/18 21:51 08/21/18 21:51 08/21/18 21:51 08/21/18 21:51 - Diagnostic Test Radiology reviewed: Image reviewed, Reports reviewed - Head CT shows no acute bleed. Chest x-ray is clear and LS-spine shows degenerative changes. Discharge - Discharge Clinical Impression: Upper and lower back pain status post fa, Status post fall Condition: Stable Disposition: HOME, SELF-CARE Additional Instructions: As we discussed, the CT of the head looked good. Chest x-ray showed no acute changes. The lower lumbar back films show some degenerative changes. Rest, drink plenty of fluids, take your medicines as prescribed. Follow-up with Dr. Mccray: He will be able to see all the x-rays done today. Return to the emergency room for any headache, worsening pain, nausea, not tolerating food or fluids. Referrals: SADIE MCCRAY MD [Primary Care Provider] - Follow up as needed
[2018-08-21 21:52] VITALS: BP 121/78
== END 2018-08-21 21:51 | disposition home or self-care (01) ==
LOC: ER 18:31
DX: M54.6 Pain in thoracic spine (principal); M54.5 Low back pain; R51 Headache; W19.XXXA Unspecified fall, initial encounter; Y92.000 Kitchen of unspecified non-institutional (private) residence as the place of occurrence of the external cause; I50.9 Heart failure, unspecified; I11.0 Hypertensive heart disease with heart failure; J44.9 Chronic obstructive pulmonary disease, unspecified
CPT/HCPCS: 70450; 71045; 72110; 99284

== ENCOUNTER 2018-08-23 05:14 | Emergency (ER) | payer MEDICARE, BC ==
--- NOTE | 2018-08-23 05:26 | ER Document Report ---
ED Medical Screen (RME) - General Stated Complaint: ABDOMINAL PAIN Time Seen by Provider: 08/23/18 05:18 Notes: 73-year-old male comes by EMS for chief complaint of abdominal pain and nausea. Reports pain is in his upper abdomen. States he has been having pain all day. Denies vomiting, chest pain, back pain, fever. States he was able to eat dinner without any difficulty. Reports normal bowel movements. States he had a G-tube as an infant, cannot tell me why, denies abdominal surgeries otherwise. TRAVEL OUTSIDE OF THE [place] IN LAST 30 DAYS: No - Related Data Allergies/Adverse Reactions: No Known Allergies Allergy (Verified 07/30/18 16:16) Past Medical History - Past Medical History Cardiac Medical History: Reports: Hx Congestive Heart Failure, Hx Hypertension, Hx Pulmonary Embolism Denies: Hx Coronary Artery Disease, Hx Heart Attack Pulmonary Medical History: Reports: Hx COPD Denies: Hx Asthma, Hx Bronchitis, Hx Pneumonia Neurological Medical History: Denies: Hx Cerebrovascular Accident, Hx Seizures Renal/ Medical History: Denies: Hx Peritoneal Dialysis Malignancy Medical History: Reports Hx Lung Cancer GI Medical History: Reports: Hx Gastroesophageal Reflux Disease, Hx Hiatal Hernia. Denies: Hx Crohn's Disease, Hx Ulcerative Colitis Musculoskeltal Medical History: Denies Hx Arthritis Skin Medical History: Denies Hx Psoriasis Psychiatric Medical History: Denies: Hx Depression Traumatic Medical History: Denies: Hx Gunshot Wound, Hx Pneumothorax Past Surgical History: Reports: Hx Cholecystectomy - Lung surgery and gastric surgery, Other - Immunizations Hx Diphtheria, Pertussis, Tetanus Vaccination: Yes History of Influenza Vaccine for 06/2017 - 11/2017 Season: Unknown Physical Exam - General General appearance: Appears well In distress: None - Abdominal Tenderness: Tender - Generalized tenderness throughout the abdomen. No guarding or severe tenderness. No rigidity. Old gastrostomy scar over the mid to left upper abdomen. Course - Re-evaluation Re-evalutation: Patient is actually drowsy but easily aroused. He has generalized abdominal pain. Reporting upper abdominal pain and nausea only. Workup pending. Doctor's Discharge - Discharge Referrals: SADIE MCCRAY MD [Primary Care Provider] - Follow up as needed
[2018-08-23 06:05] LABS: ABSOLUTE BASOPHILS # (AUTO) 0.1 10^3/uL (0.0-0.2); ABSOLUTE EOSINOPHILS # (AUTO) 0.2 10^3/uL (0.0-0.6); ABSOLUTE LYMPHOCYTES (AUTO) 1.1 10^3/uL (0.5-4.7); ABSOLUTE MONOCYTES (AUTO) 1.1 10^3/uL (0.1-1.4); ABSOLUTE NEUT (AUTO) 5.6 10^3/uL (1.7-8.2); BASOPHILS % (AUTO) 1.3 % (0-2); EOSINOPHILS % (AUTO) 2.5 % (0-6); HEMATOCRIT 30.1 % (37.9-51.0); LYMPHOCYTES % (AUTO) 13.8 % (13-45); MEAN CORPUSCULAR HEMOGLOBIN 31.1 pg (27.0-33.4); MEAN CORPUSCULAR HGB CONC 33.3 g/dL (32.0-36.0); MONOCYTES % (AUTO) 13.6 % (3-13); RED BLOOD COUNT 3.22 10^6/uL (4.35-5.55); RED CELL DISTRIBUTION WIDTH 17.2 % (11.5-14.0); SEGMENTED NEUTROPHILS % (AUTO) 68.8 % (42-78); TOTAL CELLS COUNTED % (AUTO) 100 %; WHITE BLOOD COUNT 8.1 10^3/uL (4.0-10.5)
[2018-08-23 06:20] LABS: ALANINE AMINOTRANSFERASE 27 U/L (21-72); ALBUMIN 3.6 g/dL (3.5-5.0); ALKALINE PHOSPHATASE 187 U/L (38-126); ANION GAP 11 (5-19); ASPARTATE AMINO TRANSFERASE 43 U/L (17-59); BILIRUBIN,DIRECT 0.3 mg/dL (0.0-0.4); BILIRUBIN,TOTAL 0.9 mg/dL (0.2-1.3); BLOOD UREA NITROGEN 19 mg/dL (7-20); CALCIUM 9.3 mg/dL (8.4-10.2); CARBON DIOXIDE 21 mmol/L (22-30); CHLORIDE 114 mmol/L (98-107); GLUCOSE 111 mg/dL (75-110); LIPASE 17.7 U/L (23-300); POTASSIUM 4.4 mmol/L (3.6-5.0); SODIUM 145.6 mmol/L (137-145); TOTAL PROTEIN 6.8 g/dL (6.3-8.2)
[2018-08-23 06:32] LABS: PLATELET COUNT 93 10^3/uL (150-450)
[2018-08-23] MEDS ORDERED: RINGERS SOLUTION,LACTATED 1,000 ML IV ONE (06:47)
[2018-08-23 06:51] LABS: MEAN CORPUSCULAR VOLUME 93 fl (80-97)
--- NOTE | 2018-08-23 07:18 | ER Document Report ---
ED General - General Chief Complaint: Abdominal Pain Stated Complaint: ABDOMINAL PAIN Time Seen by Provider: 08/23/18 05:18 Information source: Patient, Relative TRAVEL OUTSIDE OF THE [place] IN LAST 30 DAYS: No - HPI Patient complains to provider of: abdominal pain Onset: Other - 73-year-old man with a history of metastatic lung cancer the presents for evaluation of abdominal pain and fullness over the last several days. He was previously admitted to the hospital at which time he is being worked up by the [facility] [place] for his ongoing cancer needs at that time he underwent CT imaging of the abdomen and pelvis which demonstrated constipation and some biliary sludging. He is continued to have intermittent pain since then which worsened since yesterday. He notes that he has not had a bowel movement in 8 days. His daughter does note that he has increased his use of narcotic pain medication including a fentanyl patch for pain. They deny any fevers, chills, diarrhea, dysuria, emesis or nausea. He denies any rashes or trauma to the abdomen. - Related Data Allergies/Adverse Reactions: No Known Allergies Allergy (Verified 08/23/18 08:13) Past Medical History - General Information source: Patient, Relative - Social History Smoking Status: Never Smoker Family History: None, Hypertension, Malignancy Patient has suicidal ideation: No Patient has homicidal ideation: No - Past Medical History Cardiac Medical History: Reports: Hx Congestive Heart Failure, Hx Hypertension, Hx Pulmonary Embolism Denies: Hx Coronary Artery Disease, Hx Heart Attack Pulmonary Medical History: Reports: Hx COPD Denies: Hx Asthma, Hx Bronchitis, Hx Pneumonia Neurological Medical History: Denies: Hx Cerebrovascular Accident, Hx Seizures Renal/ Medical History: Denies: Hx Peritoneal Dialysis Malignancy Medical History: Reports Hx Lung Cancer GI Medical History: Reports: Hx Gastroesophageal Reflux Disease, Hx Hiatal Hernia. Denies: Hx Crohn's Disease, Hx Ulcerative Colitis Musculoskeletal Medical History: Denies Hx Arthritis Skin Medical History: Denies Hx Psoriasis Psychiatric Medical History: Denies: Hx Depression Traumatic Medical History: Denies: Hx Gunshot Wound, Hx Pneumothorax Past Surgical History: Reports: Hx Cholecystectomy - Lung surgery and gastric surgery, Other - Immunizations Hx Diphtheria, Pertussis, Tetanus Vaccination: Yes Hx Pneumococcal Vaccination: 06/13/14 Review of Systems - Review of Systems -: Yes All other systems reviewed and negative Physical Exam - Vital signs Vitals: Resp Pulse Ox 16 97 08/23/18 05:29 08/23/18 05:29 - General General appearance: Appears well, Alert - HEENT Head: Normocephalic, Atraumatic Eyes: Normal Pupils: PERRL - Respiratory Respiratory status: No respiratory distress Chest status: Nontender Breath sounds: Normal Chest palpation: Normal - Cardiovascular Rhythm: Regular Heart sounds: Normal auscultation Murmur: No - Abdominal Inspection: Other - Scar in the left upper quadrant of the abdomen Distension: No distension Tenderness: Tender - Diffuse tenderness no focal rebound no guarding Organomegaly: No organomegaly - Rectal Tenderness: No Stool: Other - Soft normal colored stool Hemorrhoids: None Prostate: Enlarged - Back Back: Normal, Nontender - Extremities General upper extremity: Normal inspection, Nontender, Normal color, Normal ROM , Normal temperature General lower extremity: Normal inspection, Nontender, Normal color, Normal ROM , Normal temperature, Normal weight bearing. No: Mmata's sign - Neurological Neuro grossly intact: Yes Cognition: Normal Orientation: AAOx4 Holden Coma Scale Eye Opening: Spontaneous Nicole Coma Scale Verbal: Oriented Nicole Coma Scale Motor: Obeys Commands Nicole Coma Scale Total: 15 Speech: Normal Motor strength normal: LUE, RUE, LLE, RLE Sensory: Normal - Psychological Associated symptoms: Normal affect, Normal mood Course - Re-evaluation Re-evalutation: 08/23/18 11:10 73-year-old male with a history of metastatic lung disease with bony lesions that presents for evaluation of abdominal pain. In discussion with his daughters as well as himself he notes that he has had intermittent abdominal pain over the last week since leaving the hospital. He has not had a bowel movement in the last 8 days. His daughters note that he had a CT scan at the time he was in the hospital they had discussed potentially his gallbladder being an issue but said based on the scan that it was not, they believe it could potentially be related to constipation he subsequently discharged home. They have not been using a bowel regimen at home. Of note is that this patient does have scarring to the abdomen as he had accidentally ingested lye as a small child and underwent surgery with feeding with a G-tube. They deny any fevers or chills or other systemic symptoms. I discussed with them that I would desire to do some imaging potentially an ultrasound or a CT of the abdomen and pelvis as he is a risk for an obstructive process over the note because he had previously had one they declined CT imaging at this time it would like me to speak to the cancer [facility]. 6:30 AM have contacted [facility] on-call web content & social media manager Tejas. She faxed records related to this patient's care, his records are in line with all of his labs obtained today including an elevated LDH and slightly elevated creatinine. His CT imaging did show moderate stool burden and some biliary sludging. Otherwise his scan showed his known metastatic disease as well as evidence of a previous pleurodesis in the right chest. It is possible that his pain in the base of the right chest and superior aspect of the abdomen is as result of his now scarred long as a result of his pleurodesis, he could potentially also be related to biliary cause as well as his abdominal bloating as a result of his constipation. Because of the concern for possible obstructive pathology we will do a stool exam and rectal exam. On rectal examination the stool is soft, there is no obstructive fecalith, his prostate is enlarged however appropriate in texture. We will initiate an aggressive bowel regimen as his family and he both believe that this is likely related to constipation. Patient was given a enema with moderate response, he was also given magnesium citrate as a promotility medication. He will be given a prescription for magnesium citrate as well as MiraLAX. They are given strict return precautions and encouraged to return in case of any worsening as we did not exclude any surgical pathology in the abdomen today. His daughters verbalized understanding he verbalized understanding his abdominal examination remained benign on discharge. Do not believe it represents a more serious underlying cause of abdominal pain such as but not limited to cholecystitis, appendicitis, peritonitis, AAA. - Vital Signs Vital signs: Temp Pulse Resp BP Pulse Ox 98.1 F 13 152/79 H 99 08/23/18 05:33 08/23/18 09:01 08/23/18 09:01 08/23/18 09:01 - Laboratory Result Diagrams: 08/23/18 05:45 08/23/18 05:45 Laboratory results interpreted by me: 08/23/18 08/23/18 08/23/18 05:45 05:45 08:10 RBC 3.22 L Hgb 10.0 L Hct 30.1 L RDW 17.2 H Plt Count 93 L Monocytes % 13.6 H Sodium 145.6 H Chloride 114 H Carbon Dioxide 21 L Creatinine 1.79 H Est GFR ( Amer) 45 L Est GFR (Non-Af Amer) 38 L Glucose 111 H Alkaline Phosphatase 187 H Lipase 17.7 L Urine Protein >=500 H Urine Glucose (UA) 50 H Urine Ketones TRACE H Urine Ascorbic Acid 40 H Discharge - Discharge Clinical Impression: Constipation Qualifiers: Constipation type: unspecified constipation type Qualified Code(s): K59.00 - Constipation, unspecified Abdominal pain Qualifiers: Abdominal location: unspecified location Qualified Code(s): R10.9 - Unspecified abdominal pain Condition: Good Disposition: HOME, SELF-CARE Instructions: Abdominal Pain ([facility]), Bulk Laxatives, Oral Narcotic Medication ( [facility]) Additional Instructions: You were seen today in the emergency department for your abdominal pain and constipation. I think that your constipation could be related to the pain medications which you are taking for your cancer. We did discuss potentially doing a CAT scan or ultrasound though because you had had one recently we decided not to. You were offered further testing but declined. It does not appear that there is a hard piece of stool blocking your backside. You have been given an enema, you have also been given a laxative. You been given a prescription for a laxative to use as needed, if you do not have a normal bowel movement in the next 24 hours please take the entire bottle. You should use a stool softener to ensure that you are having normal bowel movements at least once per day, you should use MiraLAX and increase the dose until you are having appropriate bowel movements. Return in case of worsening fevers, chills, vomiting or other symptoms. Prescriptions: Magnesium Citrate [Citrate of Magnesia 296 ml Bottle] 296 ml PO ONCE PRN #1 bottle PRN Reason: Polyethylene Glycol 3350 [Miralax Powder 17 gm/Packet] 1 packet PO BID #1 pkg Referrals: SADIE MCCRAY MD [Primary Care Provider] - Follow up as needed
[2018-08-23 08:44] LABS: APPEARANCE,URINE SLIGHTLY-CLOUDY; BILIRUBIN,URINE NEGATIVE (NEGATIVE); COLOR,URINE YELLOW; GLUCOSE, URINE 50 mg/dL (NEGATIVE); KETONES,URINE TRACE mg/dL (NEGATIVE); LEUKOCYTE ESTERASE,URINE NEGATIVE (NEGATIVE); NITRITE,URINE NEGATIVE (NEGATIVE); PROTEIN,URINE >=500 mg/dL (NEGATIVE); URINE SPECIFIC GRAVITY 1.014; UROBILINOGEN,URINE NEGATIVE mg/dL (<2.0)
[2018-08-23] MEDS ORDERED: MAGNESIUM CITRATE 296 ML BOTTLE PO ONE (08:52)
[2018-08-23] MEDS ORDERED: MINERAL OIL 30 ML UDCUP ONE ×2 (09:26→09:27)
[2018-08-23 10:15] VITALS: BP 141/77
--- NOTE | 2018-08-23 13:03 | EKG REPORT ---
SEVERITY:- ABNORMAL ECG - SINUS RHYTHM PROBABLE LEFT ATRIAL ABNORMALITY RBBB AND LAFB : Confirmed by: Shandra Salgado MD 23-Aug-2018 13:03:16
== END 2018-08-23 10:45 | disposition home or self-care (01) ==
LOC: ER 05:14
DX: K59.00 Constipation, unspecified (principal); R10.817 Generalized abdominal tenderness; I10 Essential (primary) hypertension; C78.00 Secondary malignant neoplasm of unspecified lung; Z79.891 Long term (current) use of opiate analgesic; J44.9 Chronic obstructive pulmonary disease, unspecified
CPT/HCPCS: 93005; 99284; 96360; 96361; 36415; 83690; 85025; 80053; 81001; 84484; 93010; J3490 ×2; J7120

== ENCOUNTER 2018-08-25 20:18 | Emergency (ER) | payer MEDICARE, BC ==
[2018-08-25] MEDS ORDERED: IPRATROPIUM/ALBUTEROL 0.5-2.5 MG/3 ML AMPUL NEB ONE (20:47)
--- NOTE | 2018-08-25 20:50 | ER Document Report ---
ED General - General Stated Complaint: DIFFICULTY BREATHING Time Seen by Provider: 08/25/18 20:32 Mode of Arrival: Medic Information source: Patient, Relative, Emergency Med Personnel Notes: This is a 73-year-old man with a history of right-sided CHF, VT E (Eliquis), atrial fibrillation, metastatic adenocarcinoma of the lung, On home O2 2-3 L, status post carboplatin and Alimta, now receiving every 3 Keytruda infusions ( followed by oncology in [place]). Patient presents to the emergency room with shortness of breath. Patient's family states that he has not been following his pain control regimen and they do not believe he has been taking his pain medicine often enough. He is written for Dilaudid 4-8 mg every 3 hours as needed pain. He is been taking the pain medicine every 5 hours. Family states he seemed to be uncomfortable and was getting agitated and complaining of shortness of breath and that by the time they got to the emergency room he was breathing much better and appeared more comfortable. TRAVEL OUTSIDE OF THE [place] IN LAST 30 DAYS: No - HPI Onset: Just prior to arrival Onset/Duration: Gradual Quality of pain: Dull Severity: Moderate Pain Level: 2 Associated symptoms: Shortness of breath. denies: Chest pain, Fever, Nausea, Vomiting Exacerbated by: Movement Relieved by: Denies Similar symptoms previously: Yes Recently seen / treated by doctor: Yes - Related Data Allergies/Adverse Reactions: No Known Allergies Allergy (Verified 08/23/18 08:13) Past Medical History - General Information source: Patient - Social History Smoking Status: Unknown if Ever Smoked Cigarette use (# per day): No Chew tobacco use (# tins/day): No Frequency of alcohol use: None Drug Abuse: None Lives with: Family Family History: None, Hypertension, Malignancy Patient has suicidal ideation: No Patient has homicidal ideation: No - Past Medical History Cardiac Medical History: Reports: Hx Congestive Heart Failure, Hx Hypertension, Hx Pulmonary Embolism Denies: Hx Coronary Artery Disease, Hx Heart Attack Pulmonary Medical History: Reports: Hx COPD Denies: Hx Asthma, Hx Bronchitis, Hx Pneumonia Neurological Medical History: Denies: Hx Cerebrovascular Accident, Hx Seizures Renal/ Medical History: Denies: Hx Peritoneal Dialysis Malignancy Medical History: Reports Hx Lung Cancer GI Medical History: Reports: Hx Gastroesophageal Reflux Disease, Hx Hiatal Hernia. Denies: Hx Crohn's Disease, Hx Ulcerative Colitis Musculoskeletal Medical History: Denies Hx Arthritis Skin Medical History: Denies Hx Psoriasis Psychiatric Medical History: Denies: Hx Depression Traumatic Medical History: Denies: Hx Gunshot Wound, Hx Pneumothorax Past Surgical History: Reports: Hx Cholecystectomy - Lung surgery and gastric surgery, Other - Immunizations Hx Diphtheria, Pertussis, Tetanus Vaccination: Yes Hx Pneumococcal Vaccination: 06/13/14 Review of Systems - Review of Systems Constitutional: denies: Chills, Fever EENT: No symptoms reported Cardiovascular: No symptoms reported Respiratory: No symptoms reported Gastrointestinal: See HPI Genitourinary: No symptoms reported Male Genitourinary: No symptoms reported Musculoskeletal: See HPI Skin: No symptoms reported Hematologic/Lymphatic: No symptoms reported Neurological/Psychological: No symptoms reported Physical Exam - Vital signs Vitals: Resp Pulse Ox 7 L 98 08/25/18 21:00 08/25/18 21:00 Notes: Physical exam: GENERAL: Patient and oriented x3 right now, no acute distress. He does have a blood pressure of 160/90 and a pulse of 82 his respiratory rate is 99% on 3 L HEAD: Atraumatic, normocephalic. EYES: Pupils equal round and reactive to light, extraocular movements intact, sclera anicteric, conjunctiva are normal. ENT: TMs normal, nares patent, oropharynx clear without exudates. Moist mucous membranes. NECK: Normal range of motion, supple without obvious mass. LUNGS: Wheezing bilateral HEART: Regular rate and rhythm without murmurs, rubs or gallops. ABDOMEN: Soft, normoactive bowel sounds. No tenderness to palpation. No guarding, no rebound. No masses appreciated. EXTREMITIES: Normal range of motion, no pitting or edema. No clubbing or cyanosis. NEUROLOGICAL: Cranial nerves II through XII grossly intact. Normal speech, moving all extremities. PSYCH: Normal mood, normal affect. SKIN: Warm, Dry, normal turgor, no rashes or lesions noted. Course - Vital Signs Vital signs: Temp Pulse Resp BP Pulse Ox 98.0 F 9 L 147/85 H 100 08/25/18 21:03 08/25/18 21:10 08/25/18 21:10 08/25/18 21:10 - Laboratory Result Diagrams: 08/25/18 20:51 08/25/18 23:02 Laboratory results interpreted by me: 08/25/18 08/25/18 20:51 23:02 RBC 3.30 L Hgb 10.3 L Hct 30.4 L RDW 17.1 H Plt Count 97 L Sodium 147.2 H Chloride 115 H Creatinine 1.88 H Est GFR ( Amer) 43 L Est GFR (Non-Af Amer) 35 L Glucose 117 H Magnesium 2.4 H ALT 12 L Alkaline Phosphatase 186 H - Diagnostic Test Radiology reviewed: Image reviewed, Reports reviewed - No I/E - EKG Interpretation by Me Rate: Normal Rhythm: NSR - vrate 74, RBBB Discharge - Discharge Clinical Impression: Bronchospasm, Chronic pain, Lung cancer Condition: Stable Disposition: HOME, SELF-CARE Additional Instructions: As we discussed, your chest x-ray looked good. Your lab results looked about baseline. Your EKG was unchanged. I did call the oncology service down in [place] and gave them a report on today' s advance and they will give word to the staff. I also spoke to Dr. Mccray and we reviewed the x-ray, EKG and labs today. He wants you to follow-up with him in the office. Otherwise, its important to continue your medicines, continue to stay on top of the pain by taking your pain medicines at the scheduled times. Also keep in mind that the pain medicines can take him make you constipated and she should take medicine to offset this. Return to the emergency room for worsening pain or shortness of breath. Referrals: SADIE MCCRAY MD [Primary Care Provider] - Follow up in 3-5 days
--- NOTE | 2018-08-25 21:13 | RADIOLOGY REPORT (SQ) ---
EXAM DESCRIPTION: XR CHEST 1 VIEW COMPLETED DATE/TME: 08/25/2018 20:46 CLINICAL HISTORY: 73 years Male SOB COMPARISON: 08/22/2018. FINDINGS: Elevation of the right hemidiaphragm. The right hilum is prominent and there is increased density in the medial right lung base similar to the previous examination. Overall this appears improved as compared to previous examinations particularly as compared to examinations from June. There is been continued improvement in aeration of the lung on the left. IMPRESSION: Small amount of persistent atelectasis and/or infiltrate in the right perihilar region and right lung base with elevation the right hemidiaphragm Improving aeration in the left lung as compared to prior exams
[2018-08-25 21:48] LABS: ABSOLUTE BASOPHILS # (AUTO) 0.1 10^3/uL (0.0-0.2); ABSOLUTE EOSINOPHILS # (AUTO) 0.3 10^3/uL (0.0-0.6); ABSOLUTE LYMPHOCYTES (AUTO) 1.4 10^3/uL (0.5-4.7); ABSOLUTE MONOCYTES (AUTO) 1.1 10^3/uL (0.1-1.4); ABSOLUTE NEUT (AUTO) 7.3 10^3/uL (1.7-8.2); BASOPHILS % (AUTO) 0.8 % (0-2); EOSINOPHILS % (AUTO) 2.5 % (0-6); HEMATOCRIT 30.4 % (37.9-51.0); HEMOGLOBIN 10.3 g/dL (13.5-17.0); LYMPHOCYTES % (AUTO) 13.5 % (13-45); MEAN CORPUSCULAR HEMOGLOBIN 31.3 pg (27.0-33.4); MEAN CORPUSCULAR VOLUME 92 fl (80-97); MONOCYTES % (AUTO) 11.3 % (3-13); RED CELL DISTRIBUTION WIDTH 17.1 % (11.5-14.0); SEGMENTED NEUTROPHILS % (AUTO) 71.9 % (42-78); TOTAL CELLS COUNTED % (AUTO) 100 %; WHITE BLOOD COUNT 10.2 10^3/uL (4.0-10.5)
[2018-08-25 21:50] LABS: PLATELET COUNT 97 10^3/uL (150-450)
[2018-08-25 23:37] LABS: ALANINE AMINOTRANSFERASE 12 U/L (21-72); ALBUMIN 3.7 g/dL (3.5-5.0); ALKALINE PHOSPHATASE 186 U/L (38-126); ANION GAP 8 (5-19); ASPARTATE AMINO TRANSFERASE 36 U/L (17-59); BILIRUBIN,DIRECT 0.3 mg/dL (0.0-0.4); BILIRUBIN,TOTAL 0.7 mg/dL (0.2-1.3); BLOOD UREA NITROGEN 18 mg/dL (7-20); CALCIUM 9.9 mg/dL (8.4-10.2); CARBON DIOXIDE 24 mmol/L (22-30); CHLORIDE 115 mmol/L (98-107); GLUCOSE 117 mg/dL (75-110); POTASSIUM 4.6 mmol/L (3.6-5.0); SODIUM 147.2 mmol/L (137-145); TOTAL PROTEIN 6.8 g/dL (6.3-8.2)
[2018-08-26 00:29] VITALS: BP 143/75
--- NOTE | 2018-08-26 09:59 | EKG REPORT ---
SEVERITY:- ABNORMAL ECG - SINUS RHYTHM RBBB AND LAFB : Confirmed by: Shandra Salgado MD 26-Aug-2018 09:58:43
== END 2018-08-26 00:34 | disposition home or self-care (01) ==
LOC: ER 20:18
DX: J98.01 Acute bronchospasm (principal); G89.29 Other chronic pain; Z79.891 Long term (current) use of opiate analgesic; C34.90 Malignant neoplasm of unspecified part of unspecified bronchus or lung; Z79.899 Other long term (current) drug therapy; I10 Essential (primary) hypertension; J44.9 Chronic obstructive pulmonary disease, unspecified; I26.99 Other pulmonary embolism without acute cor pulmonale; I48.91 Unspecified atrial fibrillation; Z79.01 Long term (current) use of anticoagulants; Z99.81 Dependence on supplemental oxygen; R06.02 Shortness of breath
CPT/HCPCS: 93005; 94640; 99285; 36415; 83735; 85025; 80053; 84484; 71045; 93010; A9270; J7620

== ENCOUNTER 2018-08-27 22:57 | Emergency (ER) | payer MEDICARE, BC ==
[2018-08-27 23:25] LABS: ABSOLUTE BASOPHILS # (AUTO) 0.1 10^3/uL (0.0-0.2); ABSOLUTE EOSINOPHILS # (AUTO) 0.2 10^3/uL (0.0-0.6); ABSOLUTE LYMPHOCYTES (AUTO) 1.1 10^3/uL (0.5-4.7); ABSOLUTE MONOCYTES (AUTO) 1.1 10^3/uL (0.1-1.4); ABSOLUTE NEUT (AUTO) 8.6 10^3/uL (1.7-8.2); BASOPHILS % (AUTO) 1.2 % (0-2); EOSINOPHILS % (AUTO) 2.1 % (0-6); HEMATOCRIT 31.7 % (37.9-51.0); HEMOGLOBIN 10.5 g/dL (13.5-17.0); LYMPHOCYTES % (AUTO) 9.7 % (13-45); MEAN CORPUSCULAR HEMOGLOBIN 30.4 pg (27.0-33.4); MEAN CORPUSCULAR VOLUME 92 fl (80-97); MONOCYTES % (AUTO) 10.1 % (3-13); RED BLOOD COUNT 3.44 10^6/uL (4.35-5.55); SEGMENTED NEUTROPHILS % (AUTO) 76.9 % (42-78); TOTAL CELLS COUNTED % (AUTO) 100 %; WHITE BLOOD COUNT 11.2 10^3/uL (4.0-10.5)
[2018-08-27 23:26] LABS: VENOUS BLOOD BASE EXCESS -1.4 mmol/L; VENOUS BLOOD HCO3 25.2 mmol/L (20-32); VENOUS BLOOD PCO2 50.5 mmHg (35-63); VENOUS BLOOD PH 7.32 (7.30-7.42)
--- NOTE | 2018-08-27 23:27 | RADIOLOGY REPORT (SQ) ---
EXAM DESCRIPTION: XR CHEST 1 VIEW COMPLETED DATE/TME: 08/27/2018 23:01 CLINICAL HISTORY: 73 years, Male, dyspnea COMPARISON: 08/25/2018 chest x-ray NUMBER OF VIEWS: 1 TECHNIQUE: Portable upright chest LIMITATIONS: None. FINDINGS: Heart size is stable. Stable elevation of the right hemidiaphragm. Right apical pleural thickening. Post surgical changes with volume loss of the right hemithorax, as before. No pneumothorax.. IMPRESSION: Little interval change copyright 2010 [employer]- All Rights Reserved
[2018-08-27 23:32] LABS: ALANINE AMINOTRANSFERASE 14 U/L (21-72); ALBUMIN 3.9 g/dL (3.5-5.0); ALKALINE PHOSPHATASE 195 U/L (38-126); ANION GAP 6 (5-19); ASPARTATE AMINO TRANSFERASE 56 U/L (17-59); BILIRUBIN,DIRECT 0.3 mg/dL (0.0-0.4); BLOOD UREA NITROGEN 18 mg/dL (7-20); CALCIUM 9.7 mg/dL (8.4-10.2); CARBON DIOXIDE 25 mmol/L (22-30); CHLORIDE 113 mmol/L (98-107); GLUCOSE 121 mg/dL (75-110); POTASSIUM 4.5 mmol/L (3.6-5.0); SODIUM 144.2 mmol/L (137-145); TOTAL PROTEIN 7.3 g/dL (6.3-8.2)
--- NOTE | 2018-08-27 23:33 | ER Document Report ---
ED General - General Chief Complaint: Shortness Of Breath Stated Complaint: DIFFICULTY BREATHING Time Seen by Provider: 08/27/18 23:01 Notes: Patient is a 73-year-old male with a history of congestive heart failure, PE, A. fib, adenocarcinoma of lung with stage IV with right sided lobectomy. Patient is currently chemotherapy. He is followed by [facility] in [place]. He gets chemotherapy from them every 3 weeks. He also has a history of coronary disease and has had recent troponin elevations and is scheduled to see a instrument engineer about the potential heart cath. He comes in because of difficulty breathing. Family says that he feels probably related to the fact that he did not receive his pain medication. Status post received 4 mg of Dilaudid every 4-6 hours. His sister has been withholding Dilaudid because she did not feel that he needed that. Patient suddenly started having severe pain and started to shake and feel short of breath and therefore is come to the ER. Pain is along the rib cage on both sides. This is where his had pain in the past. He does have history of coronary disease and has had elevated troponins in the past and actually has an upcoming appointment with instrument engineer. He also has the same recurrent pain in relation to his cancer. TRAVEL OUTSIDE OF THE [place] IN LAST 30 DAYS: No - Related Data Allergies/Adverse Reactions: No Known Allergies Allergy (Verified 08/23/18 08:13) Past Medical History - Social History Smoking Status: Former Smoker Chew tobacco use (# tins/day): No Frequency of alcohol use: None Drug Abuse: None Family History: None, Hypertension, Malignancy Patient has suicidal ideation: No Patient has homicidal ideation: No - Past Medical History Cardiac Medical History: Reports: Hx Congestive Heart Failure, Hx Hypertension, Hx Pulmonary Embolism Denies: Hx Coronary Artery Disease, Hx Heart Attack Pulmonary Medical History: Reports: Hx COPD Denies: Hx Asthma, Hx Bronchitis, Hx Pneumonia Neurological Medical History: Denies: Hx Cerebrovascular Accident, Hx Seizures Renal/ Medical History: Denies: Hx Peritoneal Dialysis Malignancy Medical History: Reports Hx Lung Cancer GI Medical History: Reports: Hx Gastroesophageal Reflux Disease, Hx Hiatal Hernia. Denies: Hx Crohn's Disease, Hx Ulcerative Colitis Musculoskeletal Medical History: Denies Hx Arthritis Skin Medical History: Denies Hx Psoriasis Psychiatric Medical History: Denies: Hx Depression Traumatic Medical History: Denies: Hx Gunshot Wound, Hx Pneumothorax Past Surgical History: Reports: Hx Cholecystectomy - Lung surgery and gastric surgery, Other - Immunizations Hx Diphtheria, Pertussis, Tetanus Vaccination: Yes Hx Pneumococcal Vaccination: 06/13/14 Review of Systems - Review of Systems Notes: My Normal Review Basic REVIEW OF SYSTEMS: CONSTITUTIONAL : Denies fever, chills, or sweats. Denies recent illness. EENT: Denies eye, ear, throat, or mouth pain or symptoms. Denies nasal or sinus congestion. CARDIOVASCULAR: Chest wall pain RESPIRATORY: Cleves short of breath GASTROINTESTINAL: Denies abdominal pain. Denies nausea, vomiting, or diarrhea. MUSCULOSKELETAL: Denies neck or back pain or joint pain or swelling. SKIN: Denies rash or skin lesions. NEUROLOGICAL: Denies altered mental status or loss of consciousness. Denies headache. Denies weakness or paralysis or loss of use of either side. Denies problems with gait or speech. Denies sensory or motor loss. PSYCHIATRIC: Anxiety ALL OTHER SYSTEMS REVIEWED AND NEGATIVE. Physical Exam - Vital signs Vitals: Resp Pulse Ox 6 L 100 08/27/18 23:22 08/27/18 23:22 - Notes Notes: General Appearance: Well nourished, alert, cooperative, no acute distress, moderate obvious discomfort. Anxious appearing. Vitals: reviewed, See vital signs table. Head: no swelling or tenderness to the head Eyes: PERRL, EOMI, Conjuctiva clear Mouth: No decreasd moisture Neck: Supple, no neck tenderness, No thyromegaly Lungs: No wheezing, No rales, No rhonci, No accessory muscle use, good air exchange bilaterally. Chest wall: Pain over bilateral rib cage which is easily reproducible with palpation. Heart: Normal rate, Regular rythm, No murmur, no rub Abdomen: Normal BS, soft, No rigidity, No abdominal tenderness, No guarding, no rebound, no abdominal masses, no organomegaly Extremities: strength 5/5 in all extremities, good pulses in all extremities, no swelling or tenderness in the extremities, no edema. Skin: warm, dry, appropriate color, no rash Neuro: speech clear, oriented x 3, normal affect, responds appropriately to questions. Course - Re-evaluation Re-evalutation: 08/28/18 01:22 On reevaluation patient has had a Nitropaste on for over 30 minutes. He has had no relief in his pain whatsoever. He still requesting further pain medicine. I have removed the Nitropaste and will give him Dilaudid. I have ordered a repeat troponin. I suspect his pain will likely be related to going without his pain medications. 08/28/18 06:12 Repeat troponin is stable. Patient's pain improved with the Dilaudid. Pain is reproducible with movement and twisting and palpation of the rib cage. I strongly suspect the patient's symptoms are related to him having withdrawal from going without his pain medicine earlier today. He is now feeling much improved and I feel safe to be discharged home. I talked to him and his at length about the fact that he cannot miss his pain medicine and that is okay for him to take his pain medicine especially since he is a stage IV cancer patient. Show understanding of this. I encouraged him to return to ER immediately if he has recurrent worsening pain, difficulty breathing, or appears unwell. Dictation of this chart was performed using voice recognition software; therefore, there may be some unintended grammatical errors. - Vital Signs Vital signs: Temp Pulse Resp BP Pulse Ox 11 L 135/80 H 96 08/28/18 02:19 08/28/18 02:19 08/28/18 02:19 - Laboratory Result Diagrams: 08/27/18 23:05 08/27/18 23:05 Laboratory results interpreted by me: 08/27/18 08/27/18 23:05 23:05 WBC 11.2 H RBC 3.44 L Hgb 10.5 L Hct 31.7 L RDW 17.0 H Plt Count 76 L Lymphocytes % 9.7 L Absolute Neutrophils 8.6 H Chloride 113 H Creatinine 1.60 H Est GFR ( Amer) 52 L Est GFR (Non-Af Amer) 43 L Glucose 121 H ALT 14 L Alkaline Phosphatase 195 H - EKG Interpretation by Me Additional EKG results interpreted by me: 08/27/18 23:33 EKG is reviewed and interpreted by me. EKG shows sinus rhythm with a rate of 80 bpm. Patient does have a right bundle branch block which is unchanged comparison to his old EKG from August 25, 2018. UT interval and QTc intervals are within normal range. QRS duration is prolonged. Discharge - Discharge Clinical Impression: Chronic pain Qualifiers: Chronic pain type: due to neoplasm Qualified Code(s): G89.3 - Neoplasm related pain (acute) (chronic) Dyspnea Qualifiers: Dyspnea type: unspecified Qualified Code(s): R06.00 - Dyspnea, unspecified Opiate dependence Qualifiers: Substance use status: uncomplicated Qualified Code(s): F11.20 - Opioid dependence, uncomplicated Condition: Good Disposition: HOME, SELF-CARE Additional Instructions: Please do not skip dosages of your pain medicine unless you are very sleepy or feel unwell. Skipping dosages will cause you to go into withdrawl and have difficulty breathing and severe pain. Please have a low threshold to return to the ER if you have worsening difficulty breathing, worsening pain, fevers, or feel unwell. Follow up with Dr. Delgado in 2-3 days. Referrals: SADIE MCCRAY MD [Primary Care Provider] - 08/30/18
[2018-08-27 23:47] LABS: PLATELET COUNT 76 10^3/uL (150-450)
[2018-08-28] MEDS ORDERED: NITROGLYCERIN 2% OINTMENT 1 GM PACKET TP ONE (00:29)
[2018-08-28] MEDS ORDERED: HYDROMORPHONE HCL INJ/PF 2 MG/ML AMPULE IV ONE (01:20)
[2018-08-28 02:24] VITALS: BP 135/80
--- NOTE | 2018-08-29 00:40 | EKG REPORT ---
SEVERITY:- ABNORMAL ECG - SINUS RHYTHM RBBB AND LAFB : Confirmed by: Shandra Salgado MD 29-Aug-2018 00:39:59
== END 2018-08-28 02:50 | disposition home or self-care (01) ==
LOC: ER 22:57
DX: G89.3 Neoplasm related pain (acute) (chronic) (principal); R06.00 Dyspnea, unspecified; F11.20 Opioid dependence, uncomplicated; R06.02 Shortness of breath; Z85.118 Personal history of other malignant neoplasm of bronchus and lung; Z79.899 Other long term (current) drug therapy; Z87.891 Personal history of nicotine dependence
CPT/HCPCS: 93005; 99285; 96374; 36415; 85025; 80053; 84484; 82803; 71045; 93010; A9270; J1170

== ENCOUNTER 2018-08-29 10:34 | Inpatient (IN) | payer MEDICARE, BC ==
[2018-08-29] MEDS ORDERED: IPRATROPIUM/ALBUTEROL 0.5-2.5 MG/3 ML AMPUL NEB ONE (11:09)
--- NOTE | 2018-08-29 11:18 | ER Document Report ---
ED General - General Stated Complaint: SHORTNESS OF BREATH Time Seen by Provider: 08/29/18 10:40 Mode of Arrival: Medic Information source: Patient, Relative Notes: 73-year-old male with a history of congestive heart failure, PEs, atrial fibrillation, metastatic adenocarcinoma presents to the emergency department with complaints of abdominal pain, chest pain and shortness of breath. Family states that today the patient began coughing and coughed up some bloody sputum. He then began complaining of chest pain. They gave him his Dilaudid as scheduled but the patient continued to complain of pain so they called EMS. In the room, patient will not answer questions for me. He will answer the phone and talk to whomever is on the phone. Patient will not answer questions pertaining to his name, year, place. Patient will follow commands. Family say he's been confused to them. Patient has diffuse wheezing and is on 3 L home oxygen. He goes to [place] to the cancer [facility] every 3 weeks for chemotherapy. Patient's been seen in the emergency department 3 times within the last week. He was diagnosed with constipation and sent home with an aggressive bowel regimen. He is currently on mag citrate and MiraLAX. Family states that he is having bowel movements but he still complains of constipation. They state that he is also been seen for the chest pain and shortness of breath over the last few days. He has had increased troponins without EKG changes and is scheduled to see a playground aide to have a heart cath done. He was given dilaudid for his chest pain and it resolved in the ED. Family admitted that they were withholding his dilaudid pills. They were told to give medication as directed. Family state today that they're giving the medication as scheduled but the patient continues to have the chest pain. TRAVEL OUTSIDE OF THE [place] IN LAST 30 DAYS: No - HPI Onset: Last week Onset/Duration: Constant Severity: Moderate Associated symptoms: Nonproductive cough Exacerbated by: Denies Relieved by: Denies Similar symptoms previously: Yes Recently seen / treated by doctor: Yes - Related Data Allergies/Adverse Reactions: No Known Allergies Allergy (Verified 08/23/18 08:13) Past Medical History - General Information source: Relative - Social History Smoking Status: Former Smoker Family History: None, Hypertension, Malignancy - Past Medical History Cardiac Medical History: Reports: Hx Congestive Heart Failure, Hx Hypertension, Hx Pulmonary Embolism Denies: Hx Coronary Artery Disease, Hx Heart Attack Pulmonary Medical History: Reports: Hx COPD Denies: Hx Asthma, Hx Bronchitis, Hx Pneumonia Neurological Medical History: Denies: Hx Cerebrovascular Accident, Hx Seizures Renal/ Medical History: Denies: Hx Peritoneal Dialysis Malignancy Medical History: Reports Hx Lung Cancer GI Medical History: Reports: Hx Gastroesophageal Reflux Disease, Hx Hiatal Hernia. Denies: Hx Crohn's Disease, Hx Ulcerative Colitis Musculoskeletal Medical History: Denies Hx Arthritis Skin Medical History: Denies Hx Psoriasis Psychiatric Medical History: Denies: Hx Depression Traumatic Medical History: Denies: Hx Gunshot Wound, Hx Pneumothorax Past Surgical History: Reports: Hx Cholecystectomy - Lung surgery and gastric surgery, Other - Immunizations Hx Diphtheria, Pertussis, Tetanus Vaccination: Yes Hx Pneumococcal Vaccination: 06/13/14 Review of Systems - Review of Systems Constitutional: No symptoms reported EENT: No symptoms reported Cardiovascular: Chest pain Respiratory: Short of breath Gastrointestinal: No symptoms reported Genitourinary: No symptoms reported Musculoskeletal: No symptoms reported Skin: No symptoms reported Hematologic/Lymphatic: No symptoms reported Neurological/Psychological: No symptoms reported -: Yes All other systems reviewed and negative Physical Exam - Vital signs Vitals: Pulse Ox 100 08/29/18 10:39 - General Notes: PHYSICAL EXAMINATION: GENERAL: Active wheezing. HEAD: Atraumatic, normocephalic. EYES: Pupils equal round and reactive to light, extraocular movements intact, sclera anicteric, conjunctiva are normal. ENT: Nares patent, oropharynx clear without exudates. Moist mucous membranes. NECK: Normal range of motion, supple without lymphadenopathy LUNGS: Diffuse wheezing. HEART: Regular rate and rhythm without murmurs. Anterior chest wall pain with palpation. ABDOMEN: Soft, nontender, nondistended abdomen. No guarding, no rebound. No masses appreciated. Musculoskeletal: Normal range of motion, no pitting or edema. No cyanosis. NEUROLOGICAL: Cranial nerves grossly intact. Normal speech, normal gait. Normal sensory, motor exams PSYCH: Normal mood, normal affect. SKIN: Warm, Dry, normal turgor, no rashes or lesions noted. Course - Re-evaluation Re-evalutation: 08/29/18 11:09 EKG: Ventricular rate 70, KS interval 116, cures duration 150, QTc 449, sinus rhythm, right bundle branch block, left anterior fascicular block. EKG similar to that done on 08/27/18. 08/29/18 13:47 Labs and imaging obtained. Chest x-ray does not show acute process. CT of the head was done as family states that the patient's been having altered mental status. No acute process was identified. No signs of infection in the urine. Ammonia is within normal limits. Urine drug screen was ordered and is pending. Patient does have an elevated troponin. This is chronically elevated. No ST segment elevation appreciated on the EKG. Abdominal series shows constipation. No signs of bowel obstruction on the x-ray. Patient denied CT of the abdomen and pelvis. Patient requesting an enema. Soapsuds enema was ordered. Patient continues to have chest pain. Is reproducible with anterior chest wall palpation. I contacted Dr. Mccray as this is the patient's fourth visit this week for similar symptoms. Patient is supposed to have an outpatient cath done soon. Family does not remember when or who what physician. Dr. Mccray wants the patient admitted for his chest pain and he will see and evaluate the patient in the hospital. 08/29/18 13:50 08/29/18 13:51 - Vital Signs Vital signs: Temp Pulse Resp BP Pulse Ox 16 132/62 H 99 08/29/18 12:04 08/29/18 12:04 08/29/18 12:03 - Laboratory Result Diagrams: 08/29/18 11:10 08/29/18 11:10 Laboratory results interpreted by me: 08/29/18 08/29/18 08/29/18 11:10 11:10 12:20 WBC 11.3 H RBC 3.54 L Hgb 10.7 L Hct 32.9 L RDW 17.3 H Plt Count 81 L Seg Neutrophils % 78.2 H Lymphocytes % 8.3 L Absolute Neutrophils 8.9 H Carbonic Acid ABG pH ABG pCO2 ABG pO2 ABG HCO3 ABG O2 Saturation Chloride 112 H Creatinine 1.64 H Est GFR ( Amer) 50 L Est GFR (Non-Af Amer) 42 L Glucose 118 H ALT 16 L Alkaline Phosphatase 210 H Ammonia < 8.7 L Lipase 19.9 L Urine Protein Urine Ketones Urine Ascorbic Acid 08/29/18 08/29/18 12:30 12:45 WBC RBC Hgb Hct RDW Plt Count Seg Neutrophils % Lymphocytes % Absolute Neutrophils Carbonic Acid 1.43 H ABG pH 7.33 L ABG pCO2 47.6 H ABG pO2 135.5 H ABG HCO3 24.8 H ABG O2 Saturation 98.5 H Chloride Creatinine Est GFR ( Amer) Est GFR (Non-Af Amer) Glucose ALT Alkaline Phosphatase Ammonia Lipase Urine Protein >=500 H Urine Ketones TRACE H Urine Ascorbic Acid 40 H Discharge - Discharge Clinical Impression: Chest pain Qualifiers: Chest pain type: unspecified Qualified Code(s): R07.9 - Chest pain, unspecified Constipation Qualifiers: Constipation type: other constipation type Qualified Code(s): K59.09 - Other constipation COPD (chronic obstructive pulmonary disease) Qualifiers: COPD type: unspecified COPD Qualified Code(s): J44.9 - Chronic obstructive pulmonary disease, unspecified Condition: Stable Disposition: ADMITTED OBSERVATION Admitting Provider: [facility] Admitted: Telemetry Referrals: SADIE MCCRAY MD [Primary Care Provider] - Follow up as needed
[2018-08-29 11:32] LABS: ABSOLUTE BASOPHILS # (AUTO) 0.1 10^3/uL (0.0-0.2); ABSOLUTE EOSINOPHILS # (AUTO) 0.4 10^3/uL (0.0-0.6); ABSOLUTE LYMPHOCYTES (AUTO) 0.9 10^3/uL (0.5-4.7); ABSOLUTE NEUT (AUTO) 8.9 10^3/uL (1.7-8.2); BASOPHILS % (AUTO) 0.8 % (0-2); EOSINOPHILS % (AUTO) 3.5 % (0-6); HEMATOCRIT 32.9 % (37.9-51.0); HEMOGLOBIN 10.7 g/dL (13.5-17.0); LYMPHOCYTES % (AUTO) 8.3 % (13-45); MEAN CORPUSCULAR HEMOGLOBIN 30.3 pg (27.0-33.4); MEAN CORPUSCULAR HGB CONC 32.5 g/dL (32.0-36.0); MEAN CORPUSCULAR VOLUME 93 fl (80-97); MONOCYTES % (AUTO) 9.2 % (3-13); RED BLOOD COUNT 3.54 10^6/uL (4.35-5.55); RED CELL DISTRIBUTION WIDTH 17.3 % (11.5-14.0); SEGMENTED NEUTROPHILS % (AUTO) 78.2 % (42-78); TOTAL CELLS COUNTED % (AUTO) 100 %; WHITE BLOOD COUNT 11.3 10^3/uL (4.0-10.5)
[2018-08-29 11:51] LABS: PLATELET COUNT 81 10^3/uL (150-450)
--- NOTE | 2018-08-29 11:54 | RADIOLOGY REPORT (SQ) ---
EXAM DESCRIPTION: CT HEAD WITHOUT COMPLETED DATE/TIME: 08/29/2018 11:44 am REASON FOR STUDY: altered mental status COMPARISON: None. TECHNIQUE: Axial images acquired through the brain without intravenous contrast. Images reviewed wi th bone, brain and subdural windows. Images stored on PACS. All CT scanners at this facility use dose modulation, iterative reconstruction, and/or weight based d osing when appropriate to reduce radiation dose to as low as reasonably achievable (ALARA). [facility]: Dose Right [facility]: CareDose [facility]: Dose Right [facility]: Teradose 4D [facility]: Zoodak RADIATION DOSE: CT Rad equipment meets quality standard of care and radiation dose reduction techniq ues were employed. CTDIvol: 53.2 mGy. DLP: 1688 mGy-cm. mGy. LIMITATIONS: None. FINDINGS: VENTRICLES: Normal size and contour. CEREBRUM: No masses. No hemorrhage. No midline shift. No evidence for acute infarction. Normal gra y/white matter differentiation. No areas of low density in the white matter. CEREBELLUM: No masses. No hemorrhage. No alteration of density. No evidence for acute infarction. EXTRAAXIAL SPACES: No fluid collections. No masses. ORBITS AND GLOBE: No intra- or extraconal masses. Normal contour of globe without masses. CALVARIUM: No fracture. PARANASAL SINUSES: Right maxillary sinus disease appear SOFT TISSUES: No mass or hematoma. OTHER: No other significant finding. IMPRESSION: NORMAL BRAIN CT WITHOUT CONTRAST. EVIDENCE OF ACUTE STROKE: NO. COMMENT: Quality ID # [id number]: Final reports with documentation of one or more dose reduction techniques (e.g., Automated exposure control, adjustment of the mA and/or kV according to patient size, use of iterative reconstruction technique) TECHNICAL DOCUMENTATION: JOB ID: [id number] [employer]- All Rights Reserved Reading location - IP/workstation name: [email or web address] [id number]
[2018-08-29 11:57] LABS: ALANINE AMINOTRANSFERASE 16 U/L (21-72); ALBUMIN 3.9 g/dL (3.5-5.0); ALKALINE PHOSPHATASE 210 U/L (38-126); ANION GAP 5 (5-19); ASPARTATE AMINO TRANSFERASE 49 U/L (17-59); BILIRUBIN,DIRECT 0.4 mg/dL (0.0-0.4); BLOOD UREA NITROGEN 20 mg/dL (7-20); CALCIUM 9.6 mg/dL (8.4-10.2); CARBON DIOXIDE 28 mmol/L (22-30); CHLORIDE 112 mmol/L (98-107); CREATINE KINASE 75 U/L (55-170); GLUCOSE 118 mg/dL (75-110); LIPASE 19.9 U/L (23-300); POTASSIUM 4.7 mmol/L (3.6-5.0); TOTAL PROTEIN 7.5 g/dL (6.3-8.2)
--- NOTE | 2018-08-29 11:59 | RADIOLOGY REPORT (SQ) ---
EXAM DESCRIPTION: ACUTE ABDOMEN SERIES COMPLETED DATE/TIME: 08/29/2018 11:40 am REASON FOR STUDY: abd pain COMPARISON: None. NUMBER OF VIEWS: Three views. TECHNIQUE: Frontal chest, supine abdomen and upright/decubitus abdomen radiographic images acquired. LIMITATIONS: None. FINDINGS: CHEST: Chronic changes at the right base. Left lung is clear. FREE AIR: None. No abnormal gas collections. BOWEL GAS PATTERN: Nonobstructive pattern. No dilated loops or air fluid levels. Marked constipation . CALCIFICATIONS: No suspicious calcifications. Likely ingested material in the right lower quadrant. No phlebolith seen on recent CT. HARDWARE: Multiple surgical clips in the abdomen and pelvis. SOFT TISSUES: No gross mass or suggestion of organomegaly. BONES: No acute fracture. No worrisome bone lesions. OTHER: No other significant finding. IMPRESSION: NO RADIOGRAPHIC EVIDENCE FOR ACUTE ABDOMINAL DISEASE. Stable appearance of the chest. Marked constipation. TECHNICAL DOCUMENTATION: JOB ID: [id number] [employer]- All Rights Reserved Reading location - IP/workstation name: [email or web address]
[2018-08-29] MEDS ORDERED: REGADENOSON INJ 0.4 MG/5 ML DISP.SYRIN IV ONE (12:06)
[2018-08-29 12:07] LABS: CREATINE KINASE MB 2.47 ng/mL (<4.55)
[2018-08-29 12:13] LABS: TROPONIN I 0.311 ng/mL
[2018-08-29 12:53] LABS: ARTERIAL BLOOD BASE EXCESS -1.5 mmol/L; ARTERIAL BLOOD H2CO3 1.43 mmol/L (1.05-1.35); ARTERIAL BLOOD HCO3 24.8 mmol/L (20-24); ARTERIAL BLOOD O2 SATURATION 98.5 % (94-98); ARTERIAL BLOOD PCO2 47.6 mmHg (35-45); ARTERIAL BLOOD PH 7.33 (7.35-7.45); ARTERIAL BLOOD PO2 135.5 mmHg (80-100); ARTERIAL BLOOD TOTAL CO2 26.2 mmol/L (23-27)
[2018-08-29 12:56] LABS: ARTERIAL BLOOD FIO2 3L
[2018-08-29 12:58] LABS: AMORPHOUS SEDIMENT,URINE TRACE /HPF; APPEARANCE,URINE SLIGHTLY-CLOUDY; BILIRUBIN,URINE NEGATIVE (NEGATIVE); COLOR,URINE YELLOW; GLUCOSE, URINE NEGATIVE (NEGATIVE); KETONES,URINE TRACE mg/dL (NEGATIVE); LEUKOCYTE ESTERASE,URINE NEGATIVE (NEGATIVE); NITRITE,URINE NEGATIVE (NEGATIVE); PROTEIN,URINE >=500 mg/dL (NEGATIVE); URINE SPECIFIC GRAVITY 1.018; UROBILINOGEN,URINE NEGATIVE mg/dL (<2.0)
--- NOTE | 2018-08-29 13:19 | EKG REPORT ---
SEVERITY:- ABNORMAL ECG - SINUS RHYTHM RBBB AND LAFB ACCELERATED AV CONDUCTION, LA ABNORMALITY. : Confirmed by: Serafin Araujo MD 29-Aug-2018 13:18:51
[2018-08-29] MEDS ORDERED: MINERAL OIL 30 ML UDCUP PR ONE (13:41)
[2018-08-29] MEDS ORDERED: MORPHINE SULFATE 10 MG/ML INJ IV ONE (13:50)
[2018-08-29 14:12] LABS: URINE AMPHETAMINES SCREEN NEGATIVE; URINE BARBITURATES SCREEN NEGATIVE; URINE BENZODIAZEPINES SCREEN NEGATIVE; URINE COCAINE SCREEN NEGATIVE; URINE MARIJUANA (THC) SCREEN NEGATIVE; URINE METHADONE SCREEN NEGATIVE; URINE PHENCYCLIDINE SCREEN NEGATIVE
[2018-08-29 18:26] LABS: INTERNATIONAL RATION (INR) 1.66; PROTHROMBIN TIME 20.5 SEC (11.4-15.4)
[2018-08-29 18:54] LABS: LIPASE 19.5 U/L (23-300)
[2018-08-29 18:58] LABS: FREE T4 (FREE THYROXINE) 1.21 ng/dL (0.78-2.19)
[2018-08-29] MEDS ORDERED: FENTANYL 12 MCG/HR PATCH.TD72 TD SCH (19:00)
[2018-08-29 19:12] LABS: THYROID STIMULATING HORMONE 1.01 uIU/mL (0.47-4.68)
[2018-08-29 20:09] LABS: CREATINE KINASE MB 1.81 ng/mL (<4.55)
[2018-08-29] MEDS ORDERED: ALBUTEROL SULFATE HFA (90 MCG/PUFF) 200 PUFF/8.5 GM MDI IH PRN (20:12)
[2018-08-29] MEDS ORDERED: (PENDING PHARMACY ID) (Esomeprazole Magnesium [Nexium] 20 MG) PO SCH (20:15)
[2018-08-29] MEDS ORDERED: [UNRECOGNIZED DRUG - MIXTURE] PO SCH (20:15)
[2018-08-29] MEDS ORDERED: (PENDING PHARMACY ID) (Doxepin Hcl [Silenor] 6 MG) PO SCH (20:15)
[2018-08-29] MEDS ORDERED: (PENDING PHARMACY ID) (Ubidecarenone/Vit E Acet [Co Q-10 100 Mg Softgel] 1 EACH) PO SCH (20:15)
[2018-08-29 20:17] LABS: TROPONIN I 0.297 ng/mL
[2018-08-29 20:39] LABS: APPEARANCE,URINE SLIGHTLY-CLOUDY; BILIRUBIN,URINE NEGATIVE (NEGATIVE); COLOR,URINE YELLOW; GLUCOSE, URINE NEGATIVE (NEGATIVE); KETONES,URINE TRACE mg/dL (NEGATIVE); LEUKOCYTE ESTERASE,URINE NEGATIVE (NEGATIVE); NITRITE,URINE NEGATIVE (NEGATIVE); PROTEIN,URINE >=500 mg/dL (NEGATIVE); URINE SPECIFIC GRAVITY 1.019; UROBILINOGEN,URINE NEGATIVE mg/dL (<2.0)
--- NOTE | 2018-08-29 21:27 | PDOC H&P ---
History of Present Illness Admission Date/PCP: 08/29/18 14:02 SADIE MCCRAY MD History of Present Illness: MEG MONTGOMERY is a 73 year old male,Patient he has multiple comorbid conditions including malignant neoplasm of the lung, pulmonary embolism, chronic obstructive lung disease. He came to the emergency room for evaluation of chest pain ,hemoptysis, cough with mild streak of blood, he has had multiple emergency room visits for evaluation of similar complaints, the troponin I was elevated albeit,slight. He also was confused recently Past Medical History Cardiac Medical History: Reports: Congestive Heart Failure, Hypertension, Pulm onary Embolism Pulmonary Medical History: Reports: Chronic Obstructive Pulmonary Disease (COPD) Malignancy Medical History: Reports: Lung Cancer GI Medical History: Reports: Gastroesophageal Reflux Disease, Hiatal Hernia Past Surgical History Past Surgical History: Reports: Cholecystectomy - Lung surgery and gastric surgery, Other Social History Smoking Status: Former Smoker Number of Years Smokin Last Time Smoked: 1977 Frequency of Alcohol Use: None Hx Recreational Drug Use: No Drugs: None Hx Prescription Drug Abuse: No Family History Family History: None, Hypertension, Malignancy Parental Family History Reviewed: Yes Children Family History Reviewed: Yes Sibling(s) Family History Reviewed.: Yes Medication/Allergy Home Medications: Atenolol [Tenormin 50 mg Tablet] 50 mg PO QHS 06/07/18 Atorvastatin Calcium [Lipitor 40 mg Tablet] 40 mg PO QHS 06/07/18 Apixaban [Eliquis 5 mg Tablet] 5 mg PO Q12 #60 tablet 06/19/18 Albuterol Sulfate [Proair Hfa Inhalation Aerosol 8.5 gm Mdi] 1 puff IH Q6HP PRN 08/07/18 Bifidobacter. Bifidum/B.longum [Florajen Bifidoblend Capsule] 1 cap PO DAILY PRN 08/07/18 Cholecalciferol (Vitamin D3) [Vitamin D3 1000 Unit Tablet] 2,000 unit PO DAILY 08/07/18 Diltiazem HCl [Diltiazem ER] 120 mg PO DAILY 08/07/18 Doxepin HCl [Silenor] 6 mg PO DAILY 08/07/18 Furosemide [Lasix 20 mg Tablet] 20 mg PO QAM 08/07/18 Potassium Chloride [Klor-Con 10 Meq Capsule ER] 10 meq PO DAILY 08/07/18 Prednisone [Deltasone 10 mg Tablet] 40 mg PO DAILY 08/07/18 Ubidecarenone/Vit E Acet [Co Q-10 100 mg Softgel] 1 each PO DAILY 08/07/18 Valsartan [Diovan 160 mg Tablet] 320 mg PO DAILY 08/07/18 Ascorbic Acid [Vitamin C] 500 mg PO TID 08/29/18 Esomeprazole Magnesium [Nexium] 20 mg PO DAILY 08/29/18 Fentanyl [Duragesic 12 Mcg/Hr Transdermal Patch] 1 each TD Q3D 08/29/18 Hydromorphone HCl [Dilaudid] 4 mg PO ASDIR PRN 08/29/18 Oxycodone HCl [Roxicodone] 5 mg PO Q6H 08/29/18 Allergies/Adverse Reactions: No Known Allergies Allergy (Verified 08/23/18 08:13) Review of Systems Constitutional: PRESENT: fatigue Eyes: ABSENT: visual disturbances Ears: ABSENT: hearing changes Cardiovascular: PRESENT: chest pain, orthropnea Respiratory: PRESENT: dyspnea, hemoptysis Gastrointestinal: PRESENT: constipation Psychiatric: ABSENT: anxiety, depression, homidical ideation, suicidal ideation Endocrine: ABSENT: cold intolerance, heat intolerance, menstrual abnormalities, polydipsia, polyuria Hematologic/Lymphatic: ABSENT: easy bleeding, easy bruising, lymphadenopathy Physical Exam Vital Signs: Temp Pulse Resp BP Pulse Ox 97.8 F 73 17 139/63 H 99 08/29/18 19:25 08/29/18 19:25 08/29/18 19:25 08/29/18 19:25 08/29/18 19:25 Intake & Output 08/28/18 08/29/18 08/30/18 06:59 06:59 06:59 Weight 85.9 kg General appearance: PRESENT: no acute distress Head exam: PRESENT: atraumatic, normocephalic Eye exam: PRESENT: PERRLA Ear exam: PRESENT: normal external ear exam Mouth exam: PRESENT: moist, tongue midline Neck exam: PRESENT: full ROM Respiratory exam: PRESENT: rhonchi Cardiovascular exam: PRESENT: RRR, +S1, +S2 GI/Abdominal exam: PRESENT: soft Rectal exam: PRESENT: deferred Neurological exam: PRESENT: alert, CN II-XII grossly intact Skin exam: PRESENT: dry, intact, warm Results Laboratory Results: 08/29/18 20:10 Urine Color YELLOW Urine Appearance SLIGHTLY-CLOUDY Urine pH 5.0 Ur Specific [place] 1.019 Urine Protein >=500 H Urine Glucose (UA) NEGATIVE Urine Ketones TRACE H Urine Blood SMALL H Urine Nitrite NEGATIVE Ur Leukocyte Esterase NEGATIVE Urine WBC (Auto) 2 Urine RBC (Auto) 118 08/29/18 08/29/18 19:30 19:30 Creatine Kinase 74 CK-MB (CK-2) 1.81 Troponin I 0.297 Impressions: Acute Abdomen Series 08/29/18 00:00 IMPRESSION: NO RADIOGRAPHIC EVIDENCE FOR ACUTE ABDOMINAL DISEASE. Stable appearance of the chest. Marked constipation. Head CT 08/29/18 10:58 IMPRESSION: NORMAL BRAIN CT WITHOUT CONTRAST. EVIDENCE OF ACUTE STROKE: NO. Assessment & Plan - Diagnosis (1) Chest pain Qualifiers: Chest pain type: unspecified Qualified Code(s): R07.9 - Chest pain, unspecified Is this a current diagnosis for this admission?: Yes Plan: The chest pain is most likely related to the lung cancer, but because he has multiple ED visits with elevated troponin it is reasonable to do a noninvasive evaluation i.e. a Lexiscan Cardiolite stress test. Patient is probably not a candidate for intervention of the coronary artery in light of his metastatic disease. (2) Acute respiratory acidosis Is this a current diagnosis for this admission?: Yes (3) Malignant neoplasm of lung Qualifiers: Laterality: unspecified laterality Lung location: unspecified part of lung Qualified Code(s): C34.90 - Malignant neoplasm of unspecified part of unspecified bronchus or lung Is this a current diagnosis for this admission?: Yes (4) Elevated troponin I level Is this a current diagnosis for this admission?: Yes
[2018-08-29] MEDS: OXYCODONE HCL IR 5 MG TABLET PO SCH (21:52)
[2018-08-29] MEDS: ATORVASTATIN CALCIUM 40 MG TABLET PO SCH (21:52)
[2018-08-29] MEDS: APIXABAN 5 MG TABLET PO SCH (21:53)
[2018-08-29] MEDS: ATENOLOL 50 MG TABLET PO SCH (21:54)
[2018-08-29] MEDS: BUSPIRONE HCL 10 MG TABLET PO SCH (22:23)
[2018-08-29] MEDS: FENTANYL 12 MCG/HR PATCH.TD72 TD SCH (23:39)
[2018-08-30] MEDS: OXYCODONE HCL IR 5 MG TABLET PO SCH ×4 (00:51→18:24)
[2018-08-30 01:53] LABS: CREATINE KINASE MB 1.6 ng/mL (<4.55)
[2018-08-30 01:58] LABS: TROPONIN I 0.259 ng/mL
[2018-08-30] MEDS: FUROSEMIDE 20 MG TABLET PO SCH (08:23)
[2018-08-30 08:36] LABS: ALANINE AMINOTRANSFERASE 23 U/L (21-72); ALBUMIN 3.7 g/dL (3.5-5.0); ALKALINE PHOSPHATASE 204 U/L (38-126); ANION GAP 10 (5-19); ASPARTATE AMINO TRANSFERASE 42 U/L (17-59); BILIRUBIN,DIRECT 0.4 mg/dL (0.0-0.4); BILIRUBIN,TOTAL 1.1 mg/dL (0.2-1.3); BLOOD UREA NITROGEN 16 mg/dL (7-20); CALCIUM 9.7 mg/dL (8.4-10.2); CARBON DIOXIDE 21 mmol/L (22-30); CHLORIDE 115 mmol/L (98-107); CREATINE KINASE 78 U/L (55-170); GLUCOSE 105 mg/dL (75-110); SODIUM 145.9 mmol/L (137-145); TOTAL PROTEIN 6.9 g/dL (6.3-8.2)
[2018-08-30 08:40] LABS: HEMOGLOBIN 10.5 g/dL (13.5-17.0); MEAN CORPUSCULAR HEMOGLOBIN 30.3 pg (27.0-33.4); MEAN CORPUSCULAR HGB CONC 32.7 g/dL (32.0-36.0); MEAN CORPUSCULAR VOLUME 93 fl (80-97); RED BLOOD COUNT 3.45 10^6/uL (4.35-5.55); RED CELL DISTRIBUTION WIDTH 17.2 % (11.5-14.0); WHITE BLOOD COUNT 10.8 10^3/uL (4.0-10.5)
[2018-08-30 08:41] LABS: ABSOLUTE BASOPHILS # (AUTO) 0.1 10^3/uL (0.0-0.2); ABSOLUTE EOSINOPHILS # (AUTO) 0.4 10^3/uL (0.0-0.6); ABSOLUTE LYMPHOCYTES (AUTO) 1.2 10^3/uL (0.5-4.7); ABSOLUTE NEUT (AUTO) 8.2 10^3/uL (1.7-8.2); BASOPHILS % (AUTO) 0.9 % (0-2); EOSINOPHILS % (AUTO) 3.5 % (0-6); LYMPHOCYTES % (AUTO) 10.7 % (13-45); MONOCYTES % (AUTO) 9.3 % (3-13); PLATELET COUNT 76 10^3/uL (150-450); SEGMENTED NEUTROPHILS % (AUTO) 75.6 % (42-78); TOTAL CELLS COUNTED % (AUTO) 100 %
[2018-08-30 08:46] LABS: CREATINE KINASE MB 1.44 ng/mL (<4.55); TROPONIN I 0.256 ng/mL
[2018-08-30] MEDS: BUSPIRONE HCL 10 MG TABLET PO SCH ×2 (10:22→18:24)
[2018-08-30] MEDS: CHOLECALCIFEROL (D3) 1,000 UNIT TABLET PO SCH (10:23)
[2018-08-30] MEDS: LANSOPRAZOLE 15 MG TAB.RAP.DR PO SCH (10:25)
[2018-08-30] MEDS: POTASSIUM CHLORIDE 10 MEQ CAPSULE.ER PO SCH (10:26)
[2018-08-30] MEDS: APIXABAN 5 MG TABLET PO SCH ×2 (10:26→21:14)
[2018-08-30] MEDS: ASCORBIC ACID 500 MG TABLET PO SCH ×4 (10:27→18:24)
[2018-08-30] MEDS: VALSARTAN 160 MG TABLET PO SCH (10:29)
[2018-08-30] MEDS: DILTIAZEM HCL 120 MG CAP.SR.24H PO SCH (10:30)
[2018-08-30] MEDS: HYDROMORPHONE HCL INJ/PF 2 MG/ML AMPULE IV PRN ×2 (17:24→23:23)
[2018-08-30] MEDS: ATORVASTATIN CALCIUM 40 MG TABLET PO SCH (21:13)
[2018-08-30] MEDS: ATENOLOL 50 MG TABLET PO SCH (21:16)
--- NOTE | 2018-08-30 21:36 | PDOC PROGRESS REPORT ---
Subjective Progress Note for:: 08/30/18 Subjective:: Patient have increased pain today requiring Dilaudid the Cardiolite stress was not done because of elevated troponin Reason For Visit: CHEST PAIN,COPD,LUNG CANCER,PE,ANXIETY, ACUTE Physical Exam Vital Signs: Temp Pulse Resp BP Pulse Ox 98.6 F 82 15 123/61 95 08/30/18 19:17 08/30/18 19:17 08/30/18 19:17 08/30/18 19:17 08/30/18 19:17 Intake & Output 08/29/18 08/30/18 08/31/18 06:59 06:59 06:59 Intake Total 354 Output Total 100 Balance 254 Weight 85.9 kg General appearance: PRESENT: no acute distress Eye exam: PRESENT: PERRLA Respiratory exam: PRESENT: decreased breath sounds Cardiovascular exam: PRESENT: +S1, +S2 GI/Abdominal exam: PRESENT: soft Neurological exam: PRESENT: alert Results Laboratory Results: 08/30/18 07:00 08/30/18 07:00 08/30/18 08/30/18 07:00 07:00 WBC 10.8 H RBC 3.45 L Hgb 10.5 L Hct 32.0 L MCV 93 MCH 30.3 MCHC 32.7 RDW 17.2 H Plt Count 76 L Seg Neutrophils % 75.6 Lymphocytes % 10.7 L Monocytes % 9.3 Eosinophils % 3.5 Basophils % 0.9 Absolute Neutrophils 8.2 Absolute Lymphocytes 1.2 Absolute Monocytes 1.0 Absolute Eosinophils 0.4 Absolute Basophils 0.1 Sodium 145.9 H Potassium 4.0 Chloride 115 H Carbon Dioxide 21 L Anion Gap 10 BUN 16 Creatinine 1.50 H Est GFR ( Amer) 56 L Est GFR (Non-Af Amer) 46 L Glucose 105 Calcium 9.7 Total Bilirubin 1.1 AST 42 ALT 23 Alkaline Phosphatase 204 H Total Protein 6.9 Albumin 3.7 08/29/18 08/29/18 08/30/18 19:30 19:30 01:13 Creatine Kinase 74 78 CK-MB (CK-2) 1.81 Troponin I 0.297 08/30/18 08/30/18 08/30/18 01:13 07:00 07:00 Creatine Kinase 78 CK-MB (CK-2) 1.60 1.44 Troponin I 0.259 0.256 Impressions: Acute Abdomen Series 08/29/18 00:00 IMPRESSION: NO RADIOGRAPHIC EVIDENCE FOR ACUTE ABDOMINAL DISEASE. Stable appearance of the chest. Marked constipation. Head CT 08/29/18 10:58 IMPRESSION: NORMAL BRAIN CT WITHOUT CONTRAST. EVIDENCE OF ACUTE STROKE: NO. Assessment & Plan - Diagnosis (1) Chest pain Qualifiers: Chest pain type: unspecified Qualified Code(s): R07.9 - Chest pain, unspecified Is this a current diagnosis for this admission?: Yes (2) Acute respiratory acidosis Is this a current diagnosis for this admission?: Yes (3) Malignant neoplasm of lung Qualifiers: Laterality: unspecified laterality Lung location: unspecified part of lung Qualified Code(s): C34.90 - Malignant neoplasm of unspecified part of unspecified bronchus or lung Is this a current diagnosis for this admission?: Yes (4) Elevated troponin Is this a current diagnosis for this admission?: Yes
[2018-08-31] MEDS: OXYCODONE HCL IR 5 MG TABLET PO SCH ×5 (00:36→19:40)
[2018-08-31] MEDS: HYDROMORPHONE HCL INJ/PF 2 MG/ML AMPULE IV PRN ×6 (03:19→23:33)
[2018-08-31 06:44] LABS: ABSOLUTE BASOPHILS # (AUTO) 0.1 10^3/uL (0.0-0.2); ABSOLUTE EOSINOPHILS # (AUTO) 0.5 10^3/uL (0.0-0.6); ABSOLUTE LYMPHOCYTES (AUTO) 1.2 10^3/uL (0.5-4.7); ABSOLUTE MONOCYTES (AUTO) 1.3 10^3/uL (0.1-1.4); BASOPHILS % (AUTO) 0.9 % (0-2); EOSINOPHILS % (AUTO) 4.6 % (0-6); HEMATOCRIT 30.7 % (37.9-51.0); LYMPHOCYTES % (AUTO) 11.2 % (13-45); MEAN CORPUSCULAR HGB CONC 32.5 g/dL (32.0-36.0); MEAN CORPUSCULAR VOLUME 92 fl (80-97); MONOCYTES % (AUTO) 11.5 % (3-13); RED BLOOD COUNT 3.32 10^6/uL (4.35-5.55); RED CELL DISTRIBUTION WIDTH 17.7 % (11.5-14.0); SEGMENTED NEUTROPHILS % (AUTO) 71.8 % (42-78); TOTAL CELLS COUNTED % (AUTO) 100 %; WHITE BLOOD COUNT 11.1 10^3/uL (4.0-10.5)
[2018-08-31 07:07] LABS: ALANINE AMINOTRANSFERASE 16 U/L (21-72); ALBUMIN 3.5 g/dL (3.5-5.0); ALKALINE PHOSPHATASE 198 U/L (38-126); ANION GAP 8 (5-19); ASPARTATE AMINO TRANSFERASE 40 U/L (17-59); BILIRUBIN,DIRECT 0.5 mg/dL (0.0-0.4); BILIRUBIN,TOTAL 1.2 mg/dL (0.2-1.3); BLOOD UREA NITROGEN 14 mg/dL (7-20); CALCIUM 9.6 mg/dL (8.4-10.2); CARBON DIOXIDE 24 mmol/L (22-30); CHLORIDE 115 mmol/L (98-107); GLUCOSE 111 mg/dL (75-110); TOTAL PROTEIN 6.7 g/dL (6.3-8.2)
[2018-08-31 07:54] LABS: PLATELET COUNT 77 10^3/uL (150-450)
[2018-08-31] MEDS: FUROSEMIDE 20 MG TABLET PO SCH (08:56)
[2018-08-31] MEDS: BUSPIRONE HCL 10 MG TABLET PO SCH ×2 (10:05→19:40)
[2018-08-31] MEDS: DILTIAZEM HCL 120 MG CAP.SR.24H PO SCH (10:06)
[2018-08-31] MEDS: VALSARTAN 160 MG TABLET PO SCH (10:06)
[2018-08-31] MEDS: APIXABAN 5 MG TABLET PO SCH ×2 (10:07→21:17)
[2018-08-31] MEDS: ASCORBIC ACID 500 MG TABLET PO SCH ×3 (10:07→19:42)
[2018-08-31] MEDS: LANSOPRAZOLE 15 MG TAB.RAP.DR PO SCH (10:07)
[2018-08-31] MEDS: POTASSIUM CHLORIDE 10 MEQ CAPSULE.ER PO SCH (10:07)
[2018-08-31] MEDS: CHOLECALCIFEROL (D3) 1,000 UNIT TABLET PO SCH (10:09)
[2018-08-31] MEDS: ATORVASTATIN CALCIUM 40 MG TABLET PO SCH (21:17)
[2018-08-31] MEDS: ATENOLOL 50 MG TABLET PO SCH (21:17)
[2018-09-01] MEDS: OXYCODONE HCL IR 5 MG TABLET PO SCH ×5 (00:25→23:49)
[2018-09-01] MEDS: HYDROMORPHONE HCL INJ/PF 2 MG/ML AMPULE IV PRN ×7 (02:58→23:07)
[2018-09-01 06:26] LABS: ABSOLUTE BASOPHILS # (AUTO) 0.2 10^3/uL (0.0-0.2); ABSOLUTE EOSINOPHILS # (AUTO) 0.6 10^3/uL (0.0-0.6); ABSOLUTE LYMPHOCYTES (AUTO) 1.3 10^3/uL (0.5-4.7); ABSOLUTE MONOCYTES (AUTO) 1.2 10^3/uL (0.1-1.4); ABSOLUTE NEUT (AUTO) 8.4 10^3/uL (1.7-8.2); BASOPHILS % (AUTO) 1.4 % (0-2); EOSINOPHILS % (AUTO) 4.9 % (0-6); HEMOGLOBIN 10.1 g/dL (13.5-17.0); LYMPHOCYTES % (AUTO) 11.5 % (13-45); MEAN CORPUSCULAR HEMOGLOBIN 30.1 pg (27.0-33.4); MEAN CORPUSCULAR HGB CONC 32.7 g/dL (32.0-36.0); MEAN CORPUSCULAR VOLUME 92 fl (80-97); MONOCYTES % (AUTO) 10.3 % (3-13); RED BLOOD COUNT 3.37 10^6/uL (4.35-5.55); RED CELL DISTRIBUTION WIDTH 17.8 % (11.5-14.0); SEGMENTED NEUTROPHILS % (AUTO) 71.9 % (42-78); TOTAL CELLS COUNTED % (AUTO) 100 %; WHITE BLOOD COUNT 11.7 10^3/uL (4.0-10.5)
[2018-09-01 06:45] LABS: ALANINE AMINOTRANSFERASE 9 U/L (21-72); ALBUMIN 3.5 g/dL (3.5-5.0); ALKALINE PHOSPHATASE 198 U/L (38-126); ANION GAP 10 (5-19); ASPARTATE AMINO TRANSFERASE 45 U/L (17-59); BILIRUBIN,DIRECT 0.4 mg/dL (0.0-0.4); BILIRUBIN,TOTAL 1.4 mg/dL (0.2-1.3); BLOOD UREA NITROGEN 15 mg/dL (7-20); CALCIUM 9.5 mg/dL (8.4-10.2); CARBON DIOXIDE 21 mmol/L (22-30); CHLORIDE 114 mmol/L (98-107); GLUCOSE 103 mg/dL (75-110); SODIUM 145.2 mmol/L (137-145); TOTAL PROTEIN 6.7 g/dL (6.3-8.2)
[2018-09-01 06:48] LABS: PLATELET COUNT 67 10^3/uL (150-450)
[2018-09-01] MEDS: FUROSEMIDE 20 MG TABLET PO SCH (08:51)
[2018-09-01] MEDS: BUSPIRONE HCL 10 MG TABLET PO SCH ×2 (10:38→17:34)
[2018-09-01] MEDS: VALSARTAN 160 MG TABLET PO SCH (10:41)
[2018-09-01] MEDS: APIXABAN 5 MG TABLET PO SCH ×2 (10:41→21:49)
[2018-09-01] MEDS: DILTIAZEM HCL 120 MG CAP.SR.24H PO SCH (10:41)
[2018-09-01] MEDS: LANSOPRAZOLE 15 MG TAB.RAP.DR PO SCH (10:42)
[2018-09-01] MEDS: POTASSIUM CHLORIDE 10 MEQ CAPSULE.ER PO SCH (10:42)
[2018-09-01] MEDS: ASCORBIC ACID 500 MG TABLET PO SCH ×3 (10:42→17:34)
[2018-09-01] MEDS: CHOLECALCIFEROL (D3) 1,000 UNIT TABLET PO SCH (10:43)
[2018-09-01] MEDS: ATORVASTATIN CALCIUM 40 MG TABLET PO SCH (21:49)
[2018-09-01] MEDS: FENTANYL 12 MCG/HR PATCH.TD72 TD SCH (21:49)
[2018-09-01] MEDS: ATENOLOL 50 MG TABLET PO SCH (21:49)
[2018-09-02] MEDS: HYDROMORPHONE HCL INJ/PF 2 MG/ML AMPULE IV PRN ×7 (02:15→21:09)
[2018-09-02] MEDS: OXYCODONE HCL IR 5 MG TABLET PO SCH ×3 (05:09→17:26)
[2018-09-02] MEDS: FUROSEMIDE 20 MG TABLET PO SCH (08:15)
[2018-09-02] MEDS: LANSOPRAZOLE 15 MG TAB.RAP.DR PO SCH (10:26)
[2018-09-02] MEDS: POTASSIUM CHLORIDE 10 MEQ CAPSULE.ER PO SCH (10:26)
[2018-09-02] MEDS: BUSPIRONE HCL 10 MG TABLET PO SCH ×2 (10:26→17:26)
[2018-09-02] MEDS: VALSARTAN 160 MG TABLET PO SCH (10:26)
[2018-09-02] MEDS: APIXABAN 5 MG TABLET PO SCH ×2 (10:26→21:10)
[2018-09-02] MEDS: ASCORBIC ACID 500 MG TABLET PO SCH ×3 (10:26→17:26)
[2018-09-02] MEDS: CHOLECALCIFEROL (D3) 1,000 UNIT TABLET PO SCH (10:27)
[2018-09-02] MEDS: DILTIAZEM HCL 120 MG CAP.SR.24H PO SCH (10:27)
--- NOTE | 2018-09-02 20:35 | DRAGON STRESS TEST REPORT ---
2 Day Intravenous Lexiscan Cardiolite stress test using single photon emmision computerized tomography. Date of Resting procedure: 09/01/2018. Date of Stress procedure: 09/02/2018. Ordering Provider: Dr. Shandra Salgado / Dr. Hurtado Indication: Chest pain, and abnormal elevation of troponin levels.. Coronary risk factors: Age, hypertension, dyslipidemia, and diabetes. Resting EKG: Sinus Rhythm. Right bundle branch block pattern Stress EKG: No changes of ischemia. Reason for termination: Protocol. The patient had no anginal symptoms, and there were no arrhythmias seen. Conclusions: Normal EKG and hemodynamic response to IV Lexiscan. Nuclear data: On 09/01/2018 at rest the patient was given 29.2 millicuries of technetium 99m sestamibi injected intravenously. As per protocol rest non gated SPECT images were obtained. Subsequently the on 09/02/2018, the patient was given intravenous Lexiscan at a dose of 0.4 mg in 5 mL intravenously, followed by flush with normal saline. Subsequently the stress dose of 32.8 millicuries of technetium 99m sestamibi was injected intravenously. As per protocol stress gated images were obtained. Nuclear interpretation: Review of images showed there is severe soft tissue artifact caused by the liver, the bowel and the diaphragm of the inferior wall. This is more so in the rest images compared to the stress images. Hence is a very difficult study to interpret. There seems to be a perfusion defect which is more pronounced to the rest images compared to the stress images in the inferior wall. But this inferior wall has normal motion contraction and thickening by gated study. Hence most likely this is artifactual, and not evidence of a prior SD. The rest of the segments of the myocardium had normal perfusion at rest, and normal perfusion post stress with IV Lexiscan. All segments of the myocardium had normal motion, contraction, and thickening by gated study. T. I D. ratio was normal at 0.95. Computer read rest, and stress left ventricular ejection fraction were 57 %, and 58 %, respectively. Conclusion: 1. There is no scintigraphic evidence of Lexiscan induced myocardial ischemia. 2. There is most likely no scintigraphic evidence of myocardial infarction/scar. This is supported by the fact that the inferior wall has good contraction in the echo images. Recommendations: Aggressive risk factor modification, and treating the underlying co- morbidities. Discussed with the patient, the family, and Dr. Hurtado. ZAHEER
[2018-09-02] MEDS: ATENOLOL 50 MG TABLET PO SCH (21:10)
[2018-09-02] MEDS: ATORVASTATIN CALCIUM 40 MG TABLET PO SCH (21:10)
--- NOTE | 2018-09-02 21:34 | PDOC PROGRESS REPORT ---
Subjective Progress Note for:: 09/02/18 Subjective:: The Cardiolite stress test was done today, there was no acute reversible ischemia to suggest ischemic heart disease Reason For Visit: CHEST PAIN,COPD,LUNG CANCER,PE,ANXIETY, ACUTE Physical Exam Vital Signs: Temp Pulse Resp BP Pulse Ox 98.1 F 72 18 116/63 100 09/02/18 19:48 09/02/18 19:48 09/02/18 19:48 09/02/18 19:48 09/02/18 19:48 Intake & Output 09/01/18 09/02/18 09/03/18 06:59 06:59 06:59 Intake Total 650 956 Output Total 275 100 Balance 375 956 -100 Weight 84.7 kg 84.9 kg General appearance: PRESENT: no acute distress Eye exam: PRESENT: PERRLA Respiratory exam: PRESENT: rhonchi Cardiovascular exam: PRESENT: +S1, +S2 GI/Abdominal exam: PRESENT: soft Results Laboratory Results: 09/01/18 05:05 09/01/18 05:05 08/29/18 08/29/18 08/29/18 11:10 11:10 19:30 Creatine Kinase 75 74 CK-MB (CK-2) 2.47 Troponin I 0.311 08/29/18 08/30/18 08/30/18 19:30 01:13 01:13 Creatine Kinase 78 CK-MB (CK-2) 1.81 1.60 Troponin I 0.297 0.259 08/30/18 08/30/18 07:00 07:00 Creatine Kinase 78 CK-MB (CK-2) 1.44 Troponin I 0.256 Impressions: Acute Abdomen Series 08/29/18 00:00 IMPRESSION: NO RADIOGRAPHIC EVIDENCE FOR ACUTE ABDOMINAL DISEASE. Stable appearance of the chest. Marked constipation. Head CT 08/29/18 10:58 IMPRESSION: NORMAL BRAIN CT WITHOUT CONTRAST. EVIDENCE OF ACUTE STROKE: NO. Assessment & Plan - Diagnosis (1) Chest pain Qualifiers: Chest pain type: unspecified Qualified Code(s): R07.9 - Chest pain, unspecified Is this a current diagnosis for this admission?: Yes (2) Acute respiratory acidosis Is this a current diagnosis for this admission?: Yes (3) Malignant neoplasm of lung Qualifiers: Laterality: unspecified laterality Lung location: unspecified part of lung Qualified Code(s): C34.90 - Malignant neoplasm of unspecified part of unspe cified bronchus or lung Is this a current diagnosis for this admission?: Yes
--- NOTE | 2018-09-02 21:47 | XCELERA REPORT ---
[address] [address] Transthoracic Echocardiogram Report Name: MEG MONTGOMERY Age: 73 yrs Gender: Male : 1945 Patient Status: Inpatient Patient Location: [address] [place] [address] Study Date: 09/02/2018 04:10 PM Procedure: A two-dimensional transthoracic echocardiogram with color flow and Doppler was performed. Study Quality: Fair. Reason For Study: Elevated troponin / murmur History: Elevated troponin / murmur. Ordering Physician: SHANDRA SALGADO Performed By: Cheri Hernandez Interpretation Summary The left ventricle is normal in size. There is mild concentric left ventricular hypertrophy. LV EF is 65% Left ventricular systolic function is normal. Doppler measurements suggest impaired left ventricular relaxation, which is associated with grade I/IV or mild diastolic dysfunction The left ventricular wall motion is normal. Of Note good contraction of all segments of the inferior wall. The right ventricle is mildly dilated. The right ventricular systolic function is normal. The right atrium is normal. The left atrial size is normal. There is no evidence of mitral valve prolapse. There is no vegetation seen on the mitral valve. The mitral valve leaflets appear thickened, but open well. There is no mitral valve stenosis. There is a trace amount of mitral regurgitation There is no aortic valvular vegetation. There is no aortic valve stenosis There is no LVOT obstruction. There is a trace to mild amount of aortic regurgitation There is no tricuspid stenosis. There is a mild amount of tricuspid regurgitation There is moderate pulmonary hypertension by echo RVSP is 52 mm of Hg , with RA mean of 10. There is no pulmonic valvular stenosis. There is a mild amount of pulmonic regurgitation The aortic root is normal size. There is no pericardial effusion. MMode/2D Measurements & Calculations RVDd: 3.8 cm LVIDd: 5.4 cm FS: 40.3 % Ao root diam: 3.4 cm IVSd: 0.93 cm LVIDs: 3.2 cm EDV(Teich): 140.3 ml Ao root area: 9.1 cm2 LVPWd: 1.2 cm ESV(Teich): 41.3 ml EF(Teich): 70.5 % Doppler Measurements & Calculations MV E max leonor: MV dec slope: Ao V2 max: AI max leonor: 89.1 cm/sec 111.7 cm/sec 326.7 cm/sec MV A max leonor: 376.9 cm/sec2 Ao max P.0 mmHgAI max P.7 mmHg 103.6 cm/sec MV dec time: AI dec slope: MV E/A: 0.86 0.24 sec 141.6 cm/sec2 AI P1/2t: 675.9 msec LV V1 max PG: PA V2 max: PI max leonor: TR max leonor: 2.9 mmHg 77.9 cm/sec 191.2 cm/sec 324.5 cm/sec LV V1 max: PA max P.4 mmHg PI max PG: TR max P.1 mmHg 85.4 cm/sec 14.6 mmHg PI dec slope: 74.2 cm/sec2 Left Ventricle The left ventricle is normal in size. There is mild concentric left ventricular hypertrophy. LV EF is 65%. Left ventricular systolic function is normal. Doppler measurements suggest impaired left ventricular relaxation, which is associated with grade I/IV or mild diastolic dysfunction. The left ventricular wall motion is normal. Of Note good contraction of all segments of the inferior wall. Right Ventricle The right ventricle is mildly dilated. The right ventricular systolic function is normal. Atria The right atrium is normal. The left atrial size is normal. Mitral Valve The mitral valve leaflets appear thickened, but open well. There is no evidence of mitral valve prolapse. There is no vegetation seen on the mitral valve. There is no mitral valve stenosis. There is a trace amount of mitral regurgitation. Aortic Valve There is no aortic valvular vegetation. There is no aortic valve stenosis. There is no LVOT obstruction. There is a trace to mild amount of aortic regurgitation. Tricuspid Valve There is no tricuspid stenosis. There is a mild amount of tricuspid regurgitation. There is moderate pulmonary hypertension by echo. RVSP is 52 mm of Hg , with RA mean of 10. Pulmonic Valve There is no pulmonic valvular stenosis. There is a mild amount of pulmonic regurgitation. Great Vessels The aortic root is normal size. Effusions There is no pericardial effusion. : SHANDRA SALGADO > Shandra Salgado
[2018-09-03] MEDS: OXYCODONE HCL IR 5 MG TABLET PO SCH ×3 (00:44→12:46)
[2018-09-03] MEDS: HYDROMORPHONE HCL INJ/PF 2 MG/ML AMPULE IV PRN ×5 (00:44→13:28)
[2018-09-03] MEDS: FUROSEMIDE 20 MG TABLET PO SCH (07:57)
[2018-09-03] MEDS: POTASSIUM CHLORIDE 10 MEQ CAPSULE.ER PO SCH (09:18)
[2018-09-03] MEDS: BUSPIRONE HCL 10 MG TABLET PO SCH (09:19)
[2018-09-03] MEDS: DILTIAZEM HCL 120 MG CAP.SR.24H PO SCH (09:20)
[2018-09-03] MEDS: LANSOPRAZOLE 15 MG TAB.RAP.DR PO SCH (09:20)
[2018-09-03] MEDS: CHOLECALCIFEROL (D3) 1,000 UNIT TABLET PO SCH (09:20)
[2018-09-03] MEDS: APIXABAN 5 MG TABLET PO SCH (09:20)
[2018-09-03] MEDS: VALSARTAN 160 MG TABLET PO SCH (09:20)
[2018-09-03] MEDS: ASCORBIC ACID 500 MG TABLET PO SCH ×2 (09:21→13:28)
[2018-09-03 12:44] VITALS: BP 114/64
--- NOTE | 2018-09-03 13:21 | PDOC DISCHARGE SUMMARY ---
General - Admit/Disc Date/PCP Admission Date/Primary Care Provider: 08/29/18 14:02 SADIE MCCRAY MD Discharge Date: 09/03/18 - Discharge Diagnosis (1) Chest pain Is this a current diagnosis for this admission?: Yes (2) Acute respiratory acidosis Is this a current diagnosis for this admission?: Yes (3) Malignant neoplasm of lung Is this a current diagnosis for this admission?: Yes (4) Elevated troponin Is this a current diagnosis for this admission?: Yes (5) History of pulmonary embolism Is this a current diagnosis for this admission?: Yes (6) Secondary pulmonary arterial hypertension Is this a current diagnosis for this admission?: Yes - Additional Information Prescriptions: RX: Buspirone HCl [Buspar 10 mg Tablet] 15 mg PO BID #60 tablet RX: Fentanyl [Duragesic 12 Mcg/Hr Transdermal Patch] 1 each TD Q3D #10 patch.[id number] Hydromorphone HCl [Dilaudid] 8 mg PO Q6H #120 tablet Home Medications: RX: Atenolol [Tenormin 50 mg Tablet] 50 mg PO QHS 06/07/18 RX: Atorvastatin Calcium [Lipitor 40 mg Tablet] 40 mg PO QHS 06/07/18 RX: Apixaban [Eliquis 5 mg Tablet] 5 mg PO Q12 #60 tablet 06/19/18 Bifidobacter. Bifidum/B.longum [Florajen Bifidoblend Capsule] 1 cap PO DAILY PRN 08/07/18 RX: Albuterol Sulfate [Proair HFA Inhalation Aerosol 8.5 gm MDI] 1 puff IH Q6HP PRN 08/07/18 RX: Cholecalciferol (Vitamin D3) [Vitamin D3 1000 Unit Tablet] 2,000 unit PO DAILY 08/07/18 RX: Diltiazem HCl [Diltiazem ER] 120 mg PO DAILY 08/07/18 RX: Doxepin HCl [Silenor] 6 mg PO DAILY 08/07/18 RX: Furosemide [Lasix 20 mg Tablet] 20 mg PO QAM 08/07/18 RX: Ubidecarenone/Vit E Acet [Co Q-10 100 mg Softgel] 1 each PO DAILY 08/07/18 RX: Valsartan [Diovan 160 mg Tablet] 320 mg PO DAILY 08/07/18 RX: Ascorbic Acid [Vitamin C] 500 mg PO TID 08/29/18 RX: Esomeprazole Magnesium [Nexium] 20 mg PO DAILY 08/29/18 Hydromorphone HCl [Dilaudid] 8 mg PO Q6H #120 tablet 09/03/18 RX: Buspirone HCl [Buspar 10 mg Tablet] 15 mg PO BID #60 tablet 09/03/18 RX: Fentanyl [Duragesic 12 Mcg/Hr Transdermal Patch] 1 each TD Q3D #10 patch.td72 09/03/18 History of Present Illness History of Present Illness: MEG MONTGOMERY is a 73 year old male,Patient he has multiple comorbid conditions including malignant neoplasm of the lung, pulmonary embolism, chronic obstructive lung disease. He came to the emergency room for evaluation of chest pain ,hemoptysis, cough with mild streak of blood, he has had multiple emergency room visits for evaluation of similar complaints, the troponin I was elevated albeit,slight. He also was confused recently Hospital Course Hospital Course: Patient was admitted for evaluation and management of chest pain, elevated serum troponin with a background of malignant neoplasm of the lung, COPD pulmonary embolism he goes to [facility] for the treatment of his cancer, the Cardiolite Lexiscan stress test was not done soon after admission because of elevated troponin, this was ultimately done ye sterday, it was negative for any reversibility to suggest ongoing ischemia. The elevated serum troponin is most likely related to the lung cancer, COPD and pulmonary embolism. Patient requires opioid therapy for pain control, the Dilaudid dose was increased to 8 mg p.o. every 6 as needed for pain Physical Exam Vital Signs: Temp Pulse Resp BP Pulse Ox 98.0 F 74 17 114/64 100 09/03/18 11:35 09/03/18 11:35 09/03/18 11:35 09/03/18 11:35 09/03/18 11:35 Intake & Output 09/02/18 09/03/18 09/04/18 06:59 06:59 06:59 Intake Total 956 218 Output Total 825 Balance 956 -607 Weight 84.9 kg 86.2 kg General appearance: PRESENT: no acute distress Eye exam: PRESENT: PERRLA Respiratory exam: PRESENT: rhonchi Cardiovascular exam: PRESENT: +S1, +S2 GI/Abdominal exam: PRESENT: soft Neurological exam: PRESENT: alert Results Laboratory Results: 09/01/18 05:05 09/01/18 05:05 08/29/18 08/29/18 08/29/18 11:10 11:10 19:30 Creatine Kinase 75 74 CK-MB (CK-2) 2.47 Troponin I 0.311 08/29/18 08/30/18 08/30/18 19:30 01:13 01:13 Creatine Kinase 78 CK-MB (CK-2) 1.81 1.60 Troponin I 0.297 0.259 08/30/18 08/30/18 07:00 07:00 Creatine Kinase 78 CK-MB (CK-2) 1.44 Troponin I 0.256 Impressions: Acute Abdomen Series 08/29/18 00:00 IMPRESSION: NO RADIOGRAPHIC EVIDENCE FOR ACUTE ABDOMINAL DISEASE. Stable appearance of the chest. Marked constipation. Head CT 08/29/18 10:58 IMPRESSION: NORMAL BRAIN CT WITHOUT CONTRAST. EVIDENCE OF ACUTE STROKE: NO. Qualifiers - * PATIENT BEING DISCHARGED WITH ANY OF THE FOLLOWING DIAGNOSIS: No
== END 2018-09-03 15:10 | disposition home health service (06) | DRG 181 ==
LOC: ER 10:34 → OBSVTOIN 14:02 → EH 14:02 → 4W 16:12 → 4N 09-02 16:41
PROVIDERS: ADMIT Internal Medicine; ATTEND Internal Medicine
DX: C34.90 Malignant neoplasm of unspecified part of unspecified bronchus or lung (principal); C79.9 Secondary malignant neoplasm of unspecified site; K90.9 Intestinal malabsorption, unspecified; E87.2 Acidosis; I50.9 Heart failure, unspecified; I48.91 Unspecified atrial fibrillation; I11.0 Hypertensive heart disease with heart failure; I27.21 Secondary pulmonary arterial hypertension; K21.9 Gastro-esophageal reflux disease without esophagitis; K44.9 Diaphragmatic hernia without obstruction or gangrene; R07.9 Chest pain, unspecified; J44.9 Chronic obstructive pulmonary disease, unspecified; Z86.711 Personal history of pulmonary embolism; Z87.891 Personal history of nicotine dependence; Z79.01 Long term (current) use of anticoagulants; Z79.891 Long term (current) use of opiate analgesic; Z99.81 Dependence on supplemental oxygen; Z79.51 Long term (current) use of inhaled steroids; Z79.52 Long term (current) use of systemic steroids; Z79.899 Other long term (current) drug therapy
CPT/HCPCS: 36415; 70450; 71045; 74022; 78452; 80048; 80053; 80076; 80307; 81001; 82140; 82150; 82550; 82553; 82803; 83036; 83690; 84439; 84443; 84484; 85025; 85610; 87040; 87086; 93005; 93010; 93017; 93306; 94640; 99285; A9500; J1170; J2785; J3490; J7620; Q9969

== ENCOUNTER 2018-09-14 10:28 | Inpatient (IN) | payer MEDICARE, BC ==
[2018-09-14] MEDS ORDERED: HYDROMORPHONE HCL INJ/PF 2 MG/ML AMPULE IV ONE (10:52)
[2018-09-14] MEDS ORDERED: ONDANSETRON HCL INJ/PF 4 MG/2 ML SDV IV ONE (10:52)
--- NOTE | 2018-09-14 11:00 | ER Document Report ---
ED General - General Chief Complaint: Pain Stated Complaint: ABDOMINAL PAIN Time Seen by Provider: 09/14/18 10:51 Mode of Arrival: Ambulatory Information source: Patient Notes: 73-year-old male with congestive heart failure, hypertension, COPD, stage IV metastatic lung cancer presents from his primary care physician's office Dr. Hurtado for a direct admission due to intractable body pain. Patient is currently undergoing chemotherapy at the cancer [facility] in [place]. Patient's abdominal and body pain started this morning. He does have Dilaudid at home for pain but states this is not helping. He denies any fever, chills, nausea, vomiting. TRAVEL OUTSIDE OF THE [place] IN LAST 30 DAYS: No - HPI Onset: This morning Onset/Duration: Sudden Quality of pain: Throbbing Severity: Severe Pain Level: 5 Associated symptoms: Body/muscle aches, Chest pain, Weakness. denies: Nausea, Vomiting Exacerbated by: Movement Relieved by: Denies Similar symptoms previously: Yes Recently seen / treated by doctor: Yes - Dr. Hurtado this morning - Related Data Allergies/Adverse Reactions: No Known Allergies Allergy (Verified 09/14/18 10:34) Past Medical History - General Information source: Patient, Relative, [facility] Records - Social History Smoking Status: Former Smoker Chew tobacco use (# tins/day): No Frequency of alcohol use: None Drug Abuse: None Lives with: Spouse/Significant other Family History: None, Hypertension, Malignancy Patient has suicidal ideation: No Patient has homicidal ideation: No - Past Medical History Cardiac Medical History: Reports: Hx Congestive Heart Failure, Hx Hypertension, Hx Pulmonary Embolism Denies: Hx Coronary Artery Disease, Hx Heart Attack Pulmonary Medical History: Reports: Hx COPD Denies: Hx Asthma, Hx Bronchitis, Hx Pneumonia Neurological Medical History: Denies: Hx Cerebrovascular Accident, Hx Seizures Renal/ Medical History: Denies: Hx Peritoneal Dialysis Malignancy Medical History: Reports Hx Lung Cancer GI Medical History: Reports: Hx Gastroesophageal Reflux Disease, Hx Hiatal Hernia. Denies: Hx Crohn's Disease, Hx Ulcerative Colitis Musculoskeletal Medical History: Denies Hx Arthritis Skin Medical History: Denies Hx Psoriasis Psychiatric Medical History: Denies: Hx Depression Traumatic Medical History: Denies: Hx Gunshot Wound, Hx Pneumothorax Past Surgical History: Reports: Hx Cholecystectomy - Lung surgery and gastric surgery, Other - Immunizations Hx Diphtheria, Pertussis, Tetanus Vaccination: Yes Hx Pneumococcal Vaccination: 06/13/14 Review of Systems - Review of Systems Constitutional: Chills, Malaise, Weakness. denies: Fever EENT: denies: Blurred vision Cardiovascular: Chest pain Respiratory: Short of breath Gastrointestinal: Abdominal pain Genitourinary: Flank pain Male Genitourinary: No symptoms reported Musculoskeletal: Back pain, Muscle pain, Muscle stiffness Skin: denies: Rash Hematologic/Lymphatic: No symptoms reported Neurological/Psychological: Weakness. denies: Lost consciousness -: Yes All other systems reviewed and negative Physical Exam - Vital signs Vitals: Temp Pulse Resp BP Pulse Ox 97.7 F 78 20 109/62 98 09/14/18 10:37 09/14/18 10:37 09/14/18 10:37 09/14/18 10:37 09/14/18 10:37 Interpretation: Normal - Notes Notes: PHYSICAL EXAMINATION: GENERAL: Moaning in pain, moderate distress. HEAD: Atraumatic, normocephalic. EYES: Pupils equal round and reactive to light, extraocular movements intact, sclera anicteric, conjunctiva are normal. ENT: Nares patent, oropharynx clear without exudates. Moist mucous membranes. NECK: Normal range of motion, supple without lymphadenopathy LUNGS: Breath sounds clear to auscultation bilaterally and equal. No wheezes rales or rhonchi. HEART: Regular rate and rhythm without murmurs ABDOMEN: Soft, nontender, distended abdomen abdomen. No guarding, no rebound. No masses appreciated. Musculoskeletal: Normal range of motion, no pitting or edema. No cyanosis. NEUROLOGICAL: Cranial nerves grossly intact. Normal speech, normal gait. Normal sensory, motor exams PSYCH: Normal mood, normal affect. SKIN: Warm, Dry, normal turgor, no rashes or lesions noted. Course - Re-evaluation Re-evalutation: 09/14/18 13:12 Laboratory 09/14/18 09/14/18 11:24 11:24 WBC 9.3 RBC 3.60 L Hgb 10.5 L Hct 32.7 L MCV 91 MCH 29.1 MCHC 32.0 RDW 17.0 H Plt Count 81 L Seg Neutrophils % 68.2 Lymphocytes % 12.2 L Monocytes % 12.3 Eosinophils % 6.0 Basophils % 1.3 Absolute Neutrophils 6.4 Absolute Lymphocytes 1.1 Absolute Monocytes 1.1 Absolute Eosinophils 0.6 Absolute Basophils 0.1 Toxic Granulation 2+ Toxic Vacuolation PRESENT Platelet Comment DECREASED Polychromasia 1+ Hypochromasia 1+ Poikilocytosis 2+ Anisocytosis 2+ Ovalocytes 1+ Schistocytes SLIGHT Sodium 146.3 H Potassium 5.5 H Chloride 111 H Carbon Dioxide 28 Anion Gap 7 BUN 18 Creatinine 1.59 H Est GFR ( Amer) 52 L Est GFR (Non-Af Amer) 43 L Glucose 120 H Calcium 10.2 Total Bilirubin 1.2 Direct Bilirubin 0.4 Neonat Total Bilirubin Not Reportable Neonat Direct Bilirubin Not Reportable Neonat Indirect Bili Not Reportable AST 47 ALT 14 L Alkaline Phosphatase 272 H Total Protein 8.0 Albumin 4.0 Temp Pulse Resp BP Pulse Ox 97.7 F 78 20 109/62 98 09/14/18 10:37 09/14/18 10:37 09/14/18 10:37 09/14/18 10:37 09/14/18 10:37 73-year-old male with metastatic lung cancer presents with severe total body pain. Patient was sent by his primary care physician Dr. Hurtado for a direct admission. Patient was administered IV Dilaudid for his pain. Patient was sent with written orders for admission. Awaiting bed assignment. - Vital Signs Vital signs: Temp Pulse Resp BP Pulse Ox 97.7 F 89 18 120/67 95 09/14/18 10:37 09/14/18 16:15 09/14/18 16:15 09/14/18 16:15 09/14/18 16:15 - Laboratory Result Diagrams: 09/14/18 11:24 09/14/18 11:24 Laboratory results interpreted by me: 09/14/18 09/14/18 11:24 11:24 RBC 3.60 L Hgb 10.5 L Hct 32.7 L RDW 17.0 H Plt Count 81 L Lymphocytes % 12.2 L Sodium 146.3 H Potassium 5.5 H Chloride 111 H Creatinine 1.59 H Est GFR ( Amer) 52 L Est GFR (Non-Af Amer) 43 L Glucose 120 H ALT 14 L Alkaline Phosphatase 272 H - Diagnostic Test Radiology reviewed: Image reviewed, Reports reviewed - EKG Interpretation by Me When compared to previous EKG there are: No significant change Discharge - Discharge Clinical Impression: Pain, neoplasm-related Chronic pain Qualifiers: Chronic pain type: other chronic pain Qualified Code(s): G89.29 - Other chronic pain Metastatic lung cancer (metastasis from lung to other site) Qualifiers: Laterality: unspecified laterality Qualified Code(s): C34.90 - Malignant neoplasm of unspecified part of unspecified bronchus or lung Condition: Fair Disposition: ADMITTED INPATIENT Admitting Provider: [facility] Admitted: Medical Floor
[2018-09-14 11:56] LABS: ABSOLUTE BASOPHILS # (AUTO) 0.1 10^3/uL (0.0-0.2); ABSOLUTE EOSINOPHILS # (AUTO) 0.6 10^3/uL (0.0-0.6); ABSOLUTE LYMPHOCYTES (AUTO) 1.1 10^3/uL (0.5-4.7); ABSOLUTE MONOCYTES (AUTO) 1.1 10^3/uL (0.1-1.4); ABSOLUTE NEUT (AUTO) 6.4 10^3/uL (1.7-8.2); BASOPHILS % (AUTO) 1.3 % (0-2); HEMATOCRIT 32.7 % (37.9-51.0); HEMOGLOBIN 10.5 g/dL (13.5-17.0); LYMPHOCYTES % (AUTO) 12.2 % (13-45); MEAN CORPUSCULAR HEMOGLOBIN 29.1 pg (27.0-33.4); MEAN CORPUSCULAR VOLUME 91 fl (80-97); MONOCYTES % (AUTO) 12.3 % (3-13); SEGMENTED NEUTROPHILS % (AUTO) 68.2 % (42-78); TOTAL CELLS COUNTED % (AUTO) 100 %; WHITE BLOOD COUNT 9.3 10^3/uL (4.0-10.5)
[2018-09-14 12:10] LABS: ALANINE AMINOTRANSFERASE 14 U/L (21-72); ALKALINE PHOSPHATASE 272 U/L (38-126); ANION GAP 7 (5-19); ASPARTATE AMINO TRANSFERASE 47 U/L (17-59); BILIRUBIN,DIRECT 0.4 mg/dL (0.0-0.4); BILIRUBIN,TOTAL 1.2 mg/dL (0.2-1.3); BLOOD UREA NITROGEN 18 mg/dL (7-20); CALCIUM 10.2 mg/dL (8.4-10.2); CARBON DIOXIDE 28 mmol/L (22-30); CHLORIDE 111 mmol/L (98-107); GLUCOSE 120 mg/dL (75-110); POTASSIUM 5.5 mmol/L (3.6-5.0); SODIUM 146.3 mmol/L (137-145)
[2018-09-14 12:34] LABS: PLATELET COUNT 81 10^3/uL (150-450)
[2018-09-14 12:35] LABS: ANISOCYTOSIS 2+; HYPOCHROMASIA 1+; OVALOCYTES 1+; PLATELET COMMENT DECREASED; POIKILOCYTOSIS 2+; POLYCHROMASIA 1+; SCHISTOCYTES SLIGHT; TOXIC GRANULATION 2+; TOXIC VACUOLATION PRESENT
[2018-09-14] MEDS ORDERED: NORMAL SALINE 1000 ML 1,000 ML IV ONE (12:43)
[2018-09-14] MEDS ORDERED: HYDROMORPHONE HCL INJ/PF 2 MG/ML AMPULE IV PRN (13:14)
--- NOTE | 2018-09-14 17:16 | EKG REPORT ---
SEVERITY:- ABNORMAL ECG - SINUS RHYTHM ATRIAL PREMATURE COMPLEX RIGHT BUNDLE BRANCH BLOCK : Confirmed by: Shandra Salgado MD 14-Sep-2018 17:16:21
[2018-09-14] MEDS ORDERED: ALBUTEROL SULFATE HFA (90 MCG/PUFF) 200 PUFF/8.5 GM MDI IH PRN (19:13)
[2018-09-14] MEDS: APIXABAN 5 MG TABLET PO SCH (21:30)
[2018-09-14] MEDS: ATORVASTATIN CALCIUM 40 MG TABLET PO SCH (21:31)
[2018-09-14] MEDS: ATENOLOL 50 MG TABLET PO SCH (21:31)
[2018-09-14] MEDS: ASCORBIC ACID 500 MG TABLET PO SCH (21:32)
[2018-09-14] MEDS: HYDROMORPHONE HCL INJ/PF 2 MG/ML AMPULE IV PRN (21:32)
--- NOTE | 2018-09-14 21:56 | PDOC H&P ---
History of Present Illness Admission Date/PCP: 09/14/18 12:06 SADIE MCCRAY MD History of Present Illness: MEG MONTGOMERY is a 73 year old male, Patient is well-known to me he has meta static lung cancer, pulmonary embolism, chronic obstructive lung disease,He came to the office with his family for evaluation of intractable abdominal pain. He has had multiple emergency room visits for evaluation of multiple complaints he was receiving his cancer treatment locally by Dr. Gamboa but he recently transferred his care to cancer center of the [facility] in [facility].He also complains of lower extremity pain, patient is already on pain medication for the control of his cancer pain but it seems that it is no effective, he was supposed to be admitted directly from the office to the hospital but there was no availability of beds so patient was referred to emergency room On the advice of the nursing air cargo specialist supervisor that assign bed to patient's,to be seen by the ED physician ,was evaluated by the ED physician and it was felt that patient needed to be admitted.The blood work was reviewed the serum creatinine is elevated, this is probably prerenal azotemia from dehydration Past Medical History Cardiac Medical History: Reports: Congestive Heart Failure, Hypertension, Pulmonary Embolism Pulmonary Medical History: Reports: Chronic Obstructive Pulmonary Disease (COPD) Malignancy Medical History: Reports: Lung Cancer GI Medical History: Reports: Gastroesophageal Reflux Disease, Hiatal Hernia Past Surgical History Past Surgical History: Reports: Cholecystectomy - Lung surgery and gastric surgery, Other Social History Lives with: Spouse/Significant other Smoking Status: Never Smoker Frequency of Alcohol Use: None Hx Recreational Drug Use: No Drugs: None Hx Prescription Drug Abuse: No - Advance Directive Resuscitation Status: Do Not Resuscitate Family History Family History: None, Hypertension, Malignancy Parental Family History Reviewed: Yes Children Family History Reviewed: Yes Sibling(s) Family History Reviewed.: Yes Medication/Allergy Home Medications: RX: Atenolol [Tenormin 50 mg Tablet] 50 mg PO QHS 06/07/18 RX: Atorvastatin Calcium [Lipitor 40 mg Tablet] 40 mg PO QHS 06/07/18 RX: Apixaban [Eliquis 5 mg Tablet] 5 mg PO Q12 #60 tablet 06/19/18 Bifidobacter. Bifidum/B.longum [Florajen Bifidoblend Capsule] 1 cap PO DAILY PRN 08/07/18 RX: Albuterol Sulfate [Proair HFA Inhalation Aerosol 8.5 gm MDI] 1 puff IH Q6HP PRN 08/07/18 RX: Cholecalciferol (Vitamin D3) [Vitamin D3 1000 Unit Tablet] 2,000 unit PO DAILY 08/07/18 RX: Diltiazem HCl [Diltiazem ER] 120 mg PO DAILY 08/07/18 RX: Doxepin HCl [Silenor] 6 mg PO DAILY 08/07/18 RX: Furosemide [Lasix 20 mg Tablet] 20 mg PO QAM 08/07/18 RX: Ubidecarenone/Vit E Acet [Co Q-10 100 mg Softgel] 1 each PO DAILY 08/07/18 RX: Valsartan [Diovan 160 mg Tablet] 320 mg PO DAILY 08/07/18 RX: Ascorbic Acid [Vitamin C] 500 mg PO TID 08/29/18 RX: Esomeprazole Magnesium [Nexium] 20 mg PO DAILY 08/29/18 Hydromorphone HCl [Dilaudid] 8 mg PO Q6H #120 tablet 09/03/18 RX: Fentanyl [Duragesic 12 Mcg/Hr Transdermal Patch] 1 each TD Q3D #10 patch.td72 09/03/18 RX: Buspirone HCl [Buspar 10 mg Tablet] 10 mg PO BID 09/14/18 RX: Potassium Chloride 10 meq PO DAILY 09/14/18 Allergies/Adverse Reactions: No Known Allergies Allergy (Verified 09/14/18 10:34) Review of Systems Constitutional: PRESENT: fatigue Cardiovascular: ABSENT: as per HPI, chest pain, other Respiratory: ABSENT: cough, hemoptysis Gastrointestinal: PRESENT: abdominal pain Genitourinary: ABSENT: dysuria, hematuria Musculoskeletal: ABSENT: joint swelling Integumentary: ABSENT: rash, wounds Neurological: PRESENT: abnormal gait Psychiatric: PRESENT: depression Physical Exam Vital Signs: Temp Pulse Resp BP Pulse Ox 98 F 68 20 110/70 97 09/14/18 17:34 09/14/18 17:34 09/14/18 17:34 09/14/18 17:34 09/14/18 17:34 Intake & Output 09/13/18 09/14/18 09/15/18 06:59 06:59 06:59 Weight 66.6 kg General appearance: PRESENT: mild distress Head exam: PRESENT: atraumatic, normocephalic Eye exam: PRESENT: PERRLA Ear exam: PRESENT: normal external ear exam Mouth exam: PRESENT: moist, tongue midline Neck exam: PRESENT: full ROM Respiratory exam: PRESENT: rhonchi Cardiovascular exam: PRESENT: +S1, +S2 Vascular exam: PRESENT: normal capillary refill GI/Abdominal exam: PRESENT: normal bowel sounds, soft Rectal exam: PRESENT: deferred Neurological exam: PRESENT: alert, CN II-XII grossly intact Psychiatric exam: PRESENT: appropriate affect Skin exam: PRESENT: dry, intact, warm Results Laboratory Results: 09/14/18 11:24 09/14/18 11:24 09/14/18 09/14/18 11:24 11:24 WBC 9.3 RBC 3.60 L Hgb 10.5 L Hct 32.7 L MCV 91 MCH 29.1 MCHC 32.0 RDW 17.0 H Plt Count 81 L Seg Neutrophils % 68.2 Lymphocytes % 12.2 L Monocytes % 12.3 Eosinophils % 6.0 Basophils % 1.3 Absolute Neutrophils 6.4 Absolute Lymphocytes 1.1 Absolute Monocytes 1.1 Absolute Eosinophils 0.6 Absolute Basophils 0.1 Sodium 146.3 H Potassium 5.5 H Chloride 111 H Carbon Dioxide 28 Anion Gap 7 BUN 18 Creatinine 1.59 H Est GFR ( Amer) 52 L Est GFR (Non-Af Amer) 43 L Glucose 120 H Calcium 10.2 Total Bilirubin 1.2 AST 47 ALT 14 L Alkaline Phosphatase 272 H Total Protein 8.0 Albumin 4.0 Assessment & Plan - Diagnosis (1) Metastatic lung cancer (metastasis from lung to other site) Qualifiers: Laterality: unspecified laterality Qualified Code(s): C34.90 - Malignant neoplasm of unspecified part of unspecified bronchus or lung Is this a current diagnosis for this admission?: Yes Plan: Patient is admitted for the management of intractable pain in the setting of metastatic cancer of the lung (2) Intractable pain Is this a current diagnosis for this admission?: Yes (3) Acute renal injury Is this a current diagnosis for this admission?: Yes
[2018-09-15] MEDS: HYDROMORPHONE HCL INJ/PF 2 MG/ML AMPULE IV PRN ×6 (01:07→21:30)
[2018-09-15] MEDS: NORMAL SALINE 1000 ML 1,000 ML IV PRN ×2 (01:08→17:55)
[2018-09-15 05:07] LABS: ABSOLUTE BASOPHILS # (AUTO) 0.1 10^3/uL (0.0-0.2); ABSOLUTE EOSINOPHILS # (AUTO) 0.7 10^3/uL (0.0-0.6); ABSOLUTE LYMPHOCYTES (AUTO) 1.3 10^3/uL (0.5-4.7); ABSOLUTE MONOCYTES (AUTO) 1.2 10^3/uL (0.1-1.4); ABSOLUTE NEUT (AUTO) 4.8 10^3/uL (1.7-8.2); BASOPHILS % (AUTO) 1.5 % (0-2); EOSINOPHILS % (AUTO) 8.7 % (0-6); HEMATOCRIT 27.7 % (37.9-51.0); HEMOGLOBIN 8.9 g/dL (13.5-17.0); LYMPHOCYTES % (AUTO) 16.4 % (13-45); MEAN CORPUSCULAR HEMOGLOBIN 29.2 pg (27.0-33.4); MEAN CORPUSCULAR HGB CONC 32.2 g/dL (32.0-36.0); MEAN CORPUSCULAR VOLUME 91 fl (80-97); MONOCYTES % (AUTO) 14.4 % (3-13); RED BLOOD COUNT 3.06 10^6/uL (4.35-5.55); RED CELL DISTRIBUTION WIDTH 16.7 % (11.5-14.0); TOTAL CELLS COUNTED % (AUTO) 100 %; WHITE BLOOD COUNT 8.1 10^3/uL (4.0-10.5)
[2018-09-15 05:18] LABS: PLATELET COUNT 64 10^3/uL (150-450)
[2018-09-15 05:23] LABS: ANION GAP 5 (5-19); BLOOD UREA NITROGEN 18 mg/dL (7-20); CALCIUM 9.2 mg/dL (8.4-10.2); CARBON DIOXIDE 26 mmol/L (22-30); CHLORIDE 113 mmol/L (98-107); GLUCOSE 99 mg/dL (75-110); POTASSIUM 4.6 mmol/L (3.6-5.0); SODIUM 144.4 mmol/L (137-145)
[2018-09-15] MEDS: ASCORBIC ACID 500 MG TABLET PO SCH ×3 (06:05→21:31)
[2018-09-15] MEDS: LANSOPRAZOLE 15 MG TAB.RAP.DR PO SCH (06:05)
[2018-09-15] MEDS ORDERED: (PENDING PHARMACY ID) (Ascorbic Acid [Vitamin C] 500 MG) PO SCH (10:00)
[2018-09-15] MEDS ORDERED: (PENDING PHARMACY ID) (Esomeprazole Magnesium [Nexium] 20 MG) PO SCH (10:00)
[2018-09-15] MEDS ORDERED: (PENDING PHARMACY ID) (Diltiazem Hcl [Diltiazem Er] 120 MG) PO SCH (10:00)
[2018-09-15] MEDS ORDERED: (PENDING PHARMACY ID) (Doxepin Hcl [Silenor] 6 MG) PO SCH (10:00)
[2018-09-15] MEDS ORDERED: (PENDING PHARMACY ID) (Ubidecarenone/Vit E Acet [Co Q-10 100 Mg Softgel] 1 EACH) PO SCH (10:00)
[2018-09-15] MEDS: APIXABAN 5 MG TABLET PO SCH ×2 (11:26→21:31)
[2018-09-15] MEDS: CHOLECALCIFEROL (D3) 1,000 UNIT TABLET PO SCH (11:26)
[2018-09-15] MEDS: VALSARTAN 160 MG TABLET PO SCH (11:27)
[2018-09-15] MEDS: DILTIAZEM HCL 120 MG CAP.SR.24H PO SCH (11:27)
[2018-09-15] MEDS: BUSPIRONE HCL 10 MG TABLET PO SCH ×2 (11:27→17:47)
[2018-09-15] MEDS: IPRATROPIUM/ALBUTEROL 0.5-2.5 MG/3 ML AMPUL NEB PRN ×2 (12:48→20:28)
--- NOTE | 2018-09-15 21:07 | PDOC PROGRESS REPORT ---
Subjective Progress Note for:: 09/15/18 Subjective:: Patient seen by the bedside Reason For Visit: MATASTATIC LUNG CANCER,MULTIPLE COMPLICATIONS Physical Exam Vital Signs: Temp Pulse Resp BP Pulse Ox 98.4 F 80 16 115/58 L 94 09/15/18 16:06 09/15/18 20:28 09/15/18 20:28 09/15/18 16:06 09/15/18 20:28 Intake & Output 09/14/18 09/15/18 09/16/18 06:59 06:59 06:59 Intake Total 444 1380 Output Total 175 200 Balance 269 1180 Weight 66.9 kg General appearance: PRESENT: no acute distress Eye exam: PRESENT: PERRLA Respiratory exam: PRESENT: rhonchi Cardiovascular exam: PRESENT: +S1, +S2 GI/Abdominal exam: PRESENT: soft Neurological exam: PRESENT: alert Results Laboratory Results: 09/15/18 03:44 09/15/18 03:44 09/15/18 09/15/18 03:44 03:44 WBC 8.1 RBC 3.06 L Hgb 8.9 L Hct 27.7 L MCV 91 MCH 29.2 MCHC 32.2 RDW 16.7 H Plt Count 64 L Seg Neutrophils % 59.0 Lymphocytes % 16.4 Monocytes % 14.4 H Eosinophils % 8.7 H Basophils % 1.5 Absolute Neutrophils 4.8 Absolute Lymphocytes 1.3 Absolute Monocytes 1.2 Absolute Eosinophils 0.7 H Absolute Basophils 0.1 Sodium 144.4 Potassium 4.6 Chloride 113 H Carbon Dioxide 26 Anion Gap 5 BUN 18 Creatinine 1.64 H Est GFR ( Amer) 50 L Est GFR (Non-Af Amer) 42 L Glucose 99 Calcium 9.2 Assessment & Plan - Diagnosis (1) Metastatic lung cancer (metastasis from lung to other site) Qualifiers: Laterality: unspecified laterality Qualified Code(s): C34.90 - Malignant neoplasm of unspecified part of unspecified bronchus or lung Is this a current diagnosis for this admission?: Yes (2) Intractable pain Is this a current diagnosis for this admission?: Yes Plan: Patient pain control achieve with Dilaudid (3) Acute renal injury Is this a current diagnosis for this admission?: Yes
[2018-09-15] MEDS: ATENOLOL 50 MG TABLET PO SCH (21:31)
[2018-09-15] MEDS: ATORVASTATIN CALCIUM 40 MG TABLET PO SCH (21:31)
[2018-09-16] MEDS: HYDROMORPHONE HCL INJ/PF 2 MG/ML AMPULE IV PRN ×7 (01:17→23:05)
[2018-09-16] MEDS: ASCORBIC ACID 500 MG TABLET PO SCH ×4 (05:05→22:23)
[2018-09-16] MEDS: LANSOPRAZOLE 15 MG TAB.RAP.DR PO SCH (05:05)
[2018-09-16 07:10] LABS: HEMATOCRIT 25.7 % (37.9-51.0); HEMOGLOBIN 8.4 g/dL (13.5-17.0); MEAN CORPUSCULAR HEMOGLOBIN 29.6 pg (27.0-33.4); MEAN CORPUSCULAR HGB CONC 32.5 g/dL (32.0-36.0); MEAN CORPUSCULAR VOLUME 91 fl (80-97); RED BLOOD COUNT 2.83 10^6/uL (4.35-5.55); RED CELL DISTRIBUTION WIDTH 16.7 % (11.5-14.0); WHITE BLOOD COUNT 8.3 10^3/uL (4.0-10.5)
[2018-09-16 07:26] LABS: ANION GAP 7 (5-19); BLOOD UREA NITROGEN 16 mg/dL (7-20); CALCIUM 8.8 mg/dL (8.4-10.2); CARBON DIOXIDE 24 mmol/L (22-30); CHLORIDE 114 mmol/L (98-107); GLUCOSE 98 mg/dL (75-110); POTASSIUM 4.7 mmol/L (3.6-5.0); SODIUM 145.1 mmol/L (137-145)
[2018-09-16] MEDS: NORMAL SALINE 1000 ML 1,000 ML IV PRN ×2 (07:58→23:08)
[2018-09-16 08:21] LABS: PLATELET COUNT 64 10^3/uL (150-450)
[2018-09-16 08:24] LABS: ABSOLUTE LYMPHOCYTES# (MANUAL) 1.1 10^3/uL (0.5-4.7); ABSOLUTE MONOCYTES # (MANUAL) 0.6 10^3/uL (0.1-1.4); ANISOCYTOSIS 1+; BAND NEUTROPHILS % (MANUAL) 1 % (3-5); BASOPHILS % (MANUAL) 0 % (0-2); EOSINOPHILS % (MANUAL) 8 % (0-6); LYMPHOCYTES % (MANUAL) 13 % (13-45); METAMYELOCYTES % (MANUAL) 1 % (0); MONOCYTES % (MANUAL) 7 % (3-13); NUCLEATED RED BLOOD CELLS 1 /100 WBC (0); PLATELET COMMENT DECREASED; POLYCHROMASIA SLIGHT; SEGMENTED NEUTROPHILS % (MAN) 70 % (42-78); TOTAL CELLS COUNTED 100; TOXIC GRANULATION 1+
[2018-09-16] MEDS: IPRATROPIUM/ALBUTEROL 0.5-2.5 MG/3 ML AMPUL NEB PRN ×3 (08:48→20:06)
[2018-09-16] MEDS: APIXABAN 5 MG TABLET PO SCH ×3 (09:29→22:24)
[2018-09-16] MEDS: CHOLECALCIFEROL (D3) 1,000 UNIT TABLET PO SCH (09:29)
[2018-09-16] MEDS: DILTIAZEM HCL 120 MG CAP.SR.24H PO SCH (09:29)
[2018-09-16] MEDS: BUSPIRONE HCL 10 MG TABLET PO SCH ×4 (09:29→19:04)
[2018-09-16] MEDS: VALSARTAN 160 MG TABLET PO SCH (09:29)
[2018-09-16] MEDS ORDERED: LORAZEPAM INJ 2 MG/1 ML VIAL IV PRN (14:34)
[2018-09-16] MEDS: ATENOLOL 50 MG TABLET PO SCH ×2 (21:13→22:24)
[2018-09-16] MEDS: ATORVASTATIN CALCIUM 40 MG TABLET PO SCH ×2 (21:14→22:24)
--- NOTE | 2018-09-16 22:30 | PDOC PROGRESS REPORT ---
Subjective Progress Note for:: 09/16/18 Subjective:: Patient is very agitated today requiring Ativan, history of lung cancer Reason For Visit: MATASTATIC LUNG CANCER,MULTIPLE COMPLICATIONS Physical Exam Vital Signs: Temp Pulse Resp BP Pulse Ox 98.4 F 80 16 156/81 H 95 09/16/18 20:00 09/16/18 20:06 09/16/18 20:06 09/16/18 20:00 09/16/18 20:06 Intake & Output 09/15/18 09/16/18 09/17/18 06:59 06:59 06:59 Intake Total 444 1800 1284 Output Total 175 500 200 Balance 269 1300 1084 Weight 66.9 kg 68.9 kg General appearance: PRESENT: no acute distress Eye exam: PRESENT: PERRLA Respiratory exam: PRESENT: clear to auscultation jim Cardiovascular exam: PRESENT: +S1, +S2 GI/Abdominal exam: PRESENT: soft Neurological exam: PRESENT: alert Results Laboratory Results: 09/16/18 06:15 09/16/18 06:15 09/16/18 09/16/18 06:15 06:15 WBC 8.3 RBC 2.83 L Hgb 8.4 L Hct 25.7 L MCV 91 MCH 29.6 MCHC 32.5 RDW 16.7 H Plt Count 64 L Seg Neutrophils % Not Reportable Lymphocytes % Not Reportable Monocytes % Not Reportable Eosinophils % Not Reportable Basophils % Not Reportable Absolute Neutrophils Not Reportable Absolute Lymphocytes Not Reportable Absolute Monocytes Not Reportable Absolute Eosinophils Not Reportable Absolute Basophils Not Reportable Sodium 145.1 H Potassium 4.7 Chloride 114 H Carbon Dioxide 24 Anion Gap 7 BUN 16 Creatinine 1.50 H Est GFR ( Amer) 56 L Est GFR (Non-Af Amer) 46 L Glucose 98 Calcium 8.8 Assessment & Plan - Diagnosis (1) Metastatic lung cancer (metastasis from lung to other site) Qualifiers: Laterality: unspecified laterality Qualified Code(s): C34.90 - Malignant neoplasm of unspecified part of unspecified bronchus or lung Is this a current diagnosis for this admission?: Yes Plan: Patient is admitted for the management of intractable pain in the setting of metastatic cancer of the lung (2) Intractable pain Is this a current diagnosis for this admission?: Yes Plan: Patient pain control achieve with Dilaudid (3) Acute renal injury Is this a current diagnosis for this admission?: Yes
[2018-09-17] MEDS: HYDROMORPHONE HCL INJ/PF 2 MG/ML AMPULE IV PRN ×6 (03:40→20:40)
[2018-09-17 05:19] LABS: ABSOLUTE BASOPHILS # (AUTO) 0.1 10^3/uL (0.0-0.2); ABSOLUTE EOSINOPHILS # (AUTO) 0.5 10^3/uL (0.0-0.6); ABSOLUTE LYMPHOCYTES (AUTO) 1.8 10^3/uL (0.5-4.7); ABSOLUTE MONOCYTES (AUTO) 1.4 10^3/uL (0.1-1.4); ABSOLUTE NEUT (AUTO) 7.1 10^3/uL (1.7-8.2); BASOPHILS % (AUTO) 1.1 % (0-2); EOSINOPHILS % (AUTO) 4.8 % (0-6); HEMATOCRIT 29.6 % (37.9-51.0); HEMOGLOBIN 9.5 g/dL (13.5-17.0); LYMPHOCYTES % (AUTO) 16.4 % (13-45); MEAN CORPUSCULAR HEMOGLOBIN 29.2 pg (27.0-33.4); MEAN CORPUSCULAR VOLUME 91 fl (80-97); MONOCYTES % (AUTO) 12.5 % (3-13); RED BLOOD COUNT 3.25 10^6/uL (4.35-5.55); RED CELL DISTRIBUTION WIDTH 17.4 % (11.5-14.0); SEGMENTED NEUTROPHILS % (AUTO) 65.2 % (42-78); TOTAL CELLS COUNTED % (AUTO) 100 %; WHITE BLOOD COUNT 10.9 10^3/uL (4.0-10.5)
[2018-09-17 05:37] LABS: ANION GAP 9 (5-19); BLOOD UREA NITROGEN 13 mg/dL (7-20); CALCIUM 8.8 mg/dL (8.4-10.2); CARBON DIOXIDE 21 mmol/L (22-30); CHLORIDE 116 mmol/L (98-107); GLUCOSE 102 mg/dL (75-110); POTASSIUM 4.8 mmol/L (3.6-5.0); SODIUM 145.5 mmol/L (137-145)
[2018-09-17 06:02] LABS: PLATELET COUNT 75 10^3/uL (150-450)
[2018-09-17] MEDS: ASCORBIC ACID 500 MG TABLET PO SCH ×3 (06:31→22:10)
[2018-09-17] MEDS: LANSOPRAZOLE 15 MG TAB.RAP.DR PO SCH (06:31)
[2018-09-17] MEDS: IPRATROPIUM/ALBUTEROL 0.5-2.5 MG/3 ML AMPUL NEB PRN ×2 (07:51→15:58)
[2018-09-17] MEDS ORDERED: HALOPERIDOL LACTATE INJ 5 MG/1 ML VIAL ONE (09:36)
[2018-09-17] MEDS: BUSPIRONE HCL 10 MG TABLET PO SCH ×2 (10:18→17:59)
[2018-09-17] MEDS: DILTIAZEM HCL 120 MG CAP.SR.24H PO SCH (10:18)
[2018-09-17] MEDS: VALSARTAN 160 MG TABLET PO SCH (10:18)
[2018-09-17] MEDS: APIXABAN 5 MG TABLET PO SCH ×2 (10:19→22:09)
[2018-09-17] MEDS: CHOLECALCIFEROL (D3) 1,000 UNIT TABLET PO SCH (10:19)
[2018-09-17 10:34] LABS: ARTERIAL BLOOD BASE EXCESS -6.5 mmol/L; ARTERIAL BLOOD H2CO3 1.34 mmol/L (1.05-1.35); ARTERIAL BLOOD HCO3 20.2 mmol/L (20-24); ARTERIAL BLOOD O2 SATURATION 99.3 % (94-98); ARTERIAL BLOOD PCO2 44.5 mmHg (35-45); ARTERIAL BLOOD PH 7.28 (7.35-7.45); ARTERIAL BLOOD PO2 221.3 mmHg (80-100); ARTERIAL BLOOD TOTAL CO2 21.6 mmol/L (23-27)
[2018-09-17 10:36] LABS: ARTERIAL BLOOD FIO2 100%
--- NOTE | 2018-09-17 11:27 | PDOC PROGRESS REPORT ---
Subjective Progress Note for:: 09/17/18 Subjective:: Patient remain agitated all night per spouse report and became very agitated this morning with disruption of care by taking off his supplemental oxygen mask and refusal of medication. There was need for rapid response team involvement and administration f IV Haloperidol with 4 point restraints. Patient was subsequently transferred to ICU for closer monitoring of his hemodynamic status as per his full code status. Reason For Visit: MATASTATIC LUNG CANCER,MULTIPLE COMPLICATIONS Physical Exam Vital Signs: Temp Pulse Resp BP Pulse Ox 98.4 F 108 H 26 H 138/67 H 100 09/17/18 10:55 09/17/18 10:55 09/17/18 10:55 09/17/18 10:55 09/17/18 10:55 Intake & Output 09/16/18 09/17/18 09/18/18 06:59 06:59 06:59 Intake Total 1800 2434 25 Output Total 500 400 300 Balance 1300 2034 -275 Weight 68.9 kg 71.3 kg General appearance: PRESENT: mild distress - on non -rebreathing face mask Head exam: PRESENT: atraumatic, normocephalic Eye exam: PRESENT: conjunctiva pink, EOMI, PERRLA. ABSENT: scleral icterus Ear exam: PRESENT: normal external ear exam Mouth exam: PRESENT: moist Respiratory exam: PRESENT: clear to auscultation jim Cardiovascular exam: PRESENT: +S1, +S2, tachycardia. ABSENT: diastolic murmur, systolic murmur GI/Abdominal exam: PRESENT: normal bowel sounds, soft. ABSENT: tenderness Extremities exam: ABSENT: pedal edema Neurological exam: PRESENT: alert, awake, oriented to person, oriented to place, oriented to situation Psychiatric exam: PRESENT: agitated Skin exam: PRESENT: dry, warm Results Laboratory Results: 09/17/18 03:45 09/17/18 03:45 09/17/18 09/17/18 09/17/18 03:45 03:45 09:45 WBC 10.9 H RBC 3.25 L Hgb 9.5 L Hct 29.6 L MCV 91 MCH 29.2 MCHC 32.0 RDW 17.4 H Plt Count 75 L Seg Neutrophils % 65.2 Lymphocytes % 16.4 Monocytes % 12.5 Eosinophils % 4.8 Basophils % 1.1 Absolute Neutrophils 7.1 Absolute Lymphocytes 1.8 Absolute Monocytes 1.4 Absolute Eosinophils 0.5 Absolute Basophils 0.1 Carbonic Acid 1.34 HCO3/H2CO3 Ratio 15:1 ABG pH 7.28 L ABG pCO2 44.5 ABG pO2 221.3 H ABG HCO3 20.2 ABG O2 Saturation 99.3 H ABG Base Excess -6.5 FiO2 100% Sodium 145.5 H Potassium 4.8 Chloride 116 H Carbon Dioxide 21 L Anion Gap 9 BUN 13 Creatinine 1.27 H Est GFR ( Amer) > 60 Est GFR (Non-Af Amer) 56 L Glucose 102 Calcium 8.8 Assessment & Plan - Diagnosis (1) Metastatic lung cancer (metastasis from lung to other site) Qualifiers: Laterality: unspecified laterality Qualified Code(s): C34.90 - Malignant neoplasm of unspecified part of unspecified bronchus or lung Is this a current diagnosis for this admission?: Yes Plan: Continue supportive care. Overall prognosis remain poor. I had extensive discussion with his family regarding intensity and scope of care plan in view of his metastatic lung cancer and code status. (2) Agitation Is this a current diagnosis for this admission?: Yes Plan: Maintain on IV Haloperidol 2 mg q6 hours prn for severe agitation management. D/C 4 point restraints. Maintain on wrist restraint due to interruption of care. (3) Pain, neoplasm-related Is this a current diagnosis for this admission?: Yes Plan: Maintain on IV Dilaudid for cancer related pain management. - Time Time Spent with patient: 25-34 minutes Medications reviewed and adjusted accordingly: Yes Anticipated discharge: Other Within: Other - Inpatient Certification Based on my medical assessment, after consideration of the patient's comorbidities, presenting symptoms, or acuity I expect that the services needed warrant INPATIENT care.: Yes I certify that my determination is in accordance with my understanding of Medicare's requirements for reasonable and necessary INPATIENT services [42 CFR 412.3e].: Yes Medical Necessity: Need Close Monitoring Due to Risk of Patient Decompensation, Need For IV Fluids, Need For Continuous Telemetry Monitoring, Need for Pain Control, Risk of Complication if Not Cared For in Hospital Post Hospital Care: D/C Structural Manager Documentation - Plan Summary Plan Summary: See covering attending physician orders as per above outlined care plan.
[2018-09-17] MEDS: HALOPERIDOL LACTATE INJ 5 MG/1 ML VIAL IV PRN ×2 (14:22→19:05)
[2018-09-17] MEDS ORDERED: HYDROMORPHONE HCL INJ/PF 2 MG/ML AMPULE IV ONE (22:00)
[2018-09-17] MEDS: ATENOLOL 50 MG TABLET PO SCH (22:09)
[2018-09-17] MEDS: ATORVASTATIN CALCIUM 40 MG TABLET PO SCH (22:09)
[2018-09-18] MEDS: HYDROMORPHONE HCL INJ/PF 2 MG/ML AMPULE IV PRN ×7 (01:25→23:53)
[2018-09-18] MEDS ORDERED: MAGNESIUM SULFATE 1 GM/D5W 100 ML IV SCH (06:00)
[2018-09-18] MEDS: ASCORBIC ACID 500 MG TABLET PO SCH ×3 (06:47→21:53)
[2018-09-18] MEDS: LANSOPRAZOLE 15 MG TAB.RAP.DR PO SCH (06:47)
[2018-09-18] MEDS: DILTIAZEM HCL 120 MG CAP.SR.24H PO SCH (09:00)
[2018-09-18] MEDS: BUSPIRONE HCL 10 MG TABLET PO SCH ×3 (09:00→17:46)
[2018-09-18] MEDS: CHOLECALCIFEROL (D3) 1,000 UNIT TABLET PO SCH (09:00)
[2018-09-18] MEDS: APIXABAN 5 MG TABLET PO SCH ×2 (09:00→21:48)
[2018-09-18] MEDS: VALSARTAN 160 MG TABLET PO SCH (09:00)
--- NOTE | 2018-09-18 10:18 | PDOC PROGRESS REPORT ---
Subjective Progress Note for:: 09/18/18 Subjective:: Less agitated this morning. He needed extra dose of IV Haloperidol last night. Patient demonstrated significant labile emotional swings. No chest pain. Remain on face mask support for maintenance of oxygen saturation. He was desaturating to the low 80's on 6L/min nasal cannula while eating. Questionable anxiety component. Reason For Visit: MATASTATIC LUNG CANCER,MULTIPLE COMPLICATIONS Physical Exam Vital Signs: Temp Pulse Resp BP Pulse Ox 97.2 F 93 13 93/61 L 100 09/18/18 08:00 09/18/18 08:00 09/18/18 10:00 09/18/18 09:42 09/18/18 10:00 Intake & Output 09/17/18 09/18/18 09/19/18 06:59 06:59 06:59 Intake Total 2434 1025 Output Total 400 500 Balance 2033 525 Weight 71.3 kg 85.9 kg Physical Exam: General appearance: PRESENT: mild distress - on non -rebreathing face mask Head exam: PRESENT: atraumatic, normocephalic Eye exam: PRESENT: conjunctiva pink, EOMI, PERRLA. ABSENT: pallor, scleral icterus Ear exam: PRESENT: normal external ear exam Mouth exam: PRESENT: moist Respiratory exam: PRESENT: clear to auscultation jim Cardiovascular exam: PRESENT: +S1, +S2, tachycardia. ABSENT: diastolic murmur, systolic murmur GI/Abdominal exam: PRESENT: normal bowel sounds, soft. ABSENT: tenderness Extremities exam: ABSENT: pedal edema Neurological exam: PRESENT: alert, awake, oriented to person, oriented to place, oriented to situation Psychiatric exam: PRESENT: less agitated at the time of my bedside evaluation. Skin exam: PRESENT: dry, warm Results Laboratory Results: 09/17/18 03:45 09/17/18 03:45 09/17/18 09:45 Carbonic Acid 1.34 HCO3/H2CO3 Ratio 15:1 ABG pH 7.28 L ABG pCO2 44.5 ABG pO2 221.3 H ABG HCO3 20.2 ABG O2 Saturation 99.3 H ABG Base Excess -6.5 FiO2 100% Assessment & Plan - Diagnosis (1) Metastatic lung cancer (metastasis from lung to other site) Qualifiers: Laterality: unspecified laterality Qualified Code(s): C34.90 - Malignant neoplasm of unspecified part of unspecified bronchus or lung Is this a current diagnosis for this admission?: Yes (2) Agitation Is this a current diagnosis for this admission?: Yes (3) Pain, neoplasm-related Is this a current diagnosis for this admission?: Yes - Time Time Spent with patient: 25-34 minutes Medications reviewed and adjusted accordingly: Yes Anticipated discharge: Home with Homehealth, Hospice Within: Other - Inpatient Certification Based on my medical assessment, after consideration of the patient's comorbidities, presenting symptoms, or acuity I expect that the services needed warrant INPATIENT care.: Yes I certify that my determination is in accordance with my understanding of Medicare's requirements for reasonable and necessary INPATIENT services [42 CFR 412.3e].: Yes Medical Necessity: Need Close Monitoring Due to Risk of Patient Decompensation, Need For IV Fluids, Need For Continuous Telemetry Monitoring, Risk of Complication if Not Cared For in Hospital Post Hospital Care: D/C Garage Hand Documentation - Plan Summary Plan Summary: Increase his Buspar to 10 mg po tid. Maintain on other current medication management.
[2018-09-18] MEDS: HALOPERIDOL LACTATE INJ 5 MG/1 ML VIAL IV PRN ×3 (10:45→23:10)
[2018-09-18] MEDS: ATORVASTATIN CALCIUM 40 MG TABLET PO SCH (21:48)
[2018-09-18] MEDS: ATENOLOL 50 MG TABLET PO SCH (21:49)
[2018-09-19] MEDS: HYDROMORPHONE HCL INJ/PF 2 MG/ML AMPULE IV PRN ×7 (02:50→22:00)
[2018-09-19] MEDS: HALOPERIDOL LACTATE INJ 5 MG/1 ML VIAL IV PRN (05:25)
[2018-09-19] MEDS: ASCORBIC ACID 500 MG TABLET PO SCH ×3 (05:49→21:43)
[2018-09-19] MEDS: LANSOPRAZOLE 15 MG TAB.RAP.DR PO SCH (05:49)
[2018-09-19] MEDS: IPRATROPIUM/ALBUTEROL 0.5-2.5 MG/3 ML AMPUL NEB PRN (08:18)
[2018-09-19] MEDS: APIXABAN 5 MG TABLET PO SCH ×2 (10:21→21:44)
[2018-09-19] MEDS: DILTIAZEM HCL 120 MG CAP.SR.24H PO SCH (10:21)
[2018-09-19] MEDS: CHOLECALCIFEROL (D3) 1,000 UNIT TABLET PO SCH (10:21)
[2018-09-19] MEDS: VALSARTAN 160 MG TABLET PO SCH (10:21)
[2018-09-19] MEDS: BUSPIRONE HCL 10 MG TABLET PO SCH ×3 (10:21→17:49)
[2018-09-19] MEDS ORDERED: HYDROMORPHONE HCL INJ/PF 2 MG/ML AMPULE IV ONE (10:30)
--- NOTE | 2018-09-19 21:31 | PDOC DISCHARGE SUMMARY ---
General - Admit/Disc Date/PCP Admission Date/Primary Care Provider: 09/14/18 12:06 SADIE MCCRAY MD Discharge Date: 09/19/18 - Discharge Diagnosis (1) Metastatic lung cancer (metastasis from lung to other site) Is this a current diagnosis for this admission?: Yes (2) Intractable pain Is this a current diagnosis for this admission?: Yes (3) Acute renal injury Is this a current diagnosis for this admission?: Yes (4) Acute encephalopathy Is this a current diagnosis for this admission?: Yes - Additional Information Resuscitation Status: Full Code Home Medications: Atenolol [Tenormin 50 mg Tablet] 50 mg PO QHS 06/07/18 Atorvastatin Calcium [Lipitor 40 mg Tablet] 40 mg PO QHS 06/07/18 Apixaban [Eliquis 5 mg Tablet] 5 mg PO Q12 #60 tablet 06/19/18 Albuterol Sulfate [Proair HFA Inhalation Aerosol 8.5 gm MDI] 1 puff IH Q6HP PRN 08/07/18 Bifidobacter. Bifidum/B.longum [Florajen Bifidoblend Capsule] 1 cap PO DAILY PRN 08/07/18 Cholecalciferol (Vitamin D3) [Vitamin D3 1000 Unit Tablet] 2,000 unit PO DAILY 08/07/18 Diltiazem HCl [Diltiazem ER] 120 mg PO DAILY 08/07/18 Doxepin HCl [Silenor] 6 mg PO DAILY 08/07/18 Ubidecarenone/Vit E Acet [Co Q-10 100 mg Softgel] 1 each PO DAILY 08/07/18 Valsartan [Diovan 160 mg Tablet] 320 mg PO DAILY 08/07/18 Ascorbic Acid [Vitamin C] 500 mg PO TID 08/29/18 Esomeprazole Magnesium [Nexium] 20 mg PO DAILY 08/29/18 Fentanyl [Duragesic 12 Mcg/Hr Transdermal Patch] 1 each TD Q3D #10 patch.td72 09/03/18 Hydromorphone HCl [Dilaudid] 8 mg PO Q6H #120 tablet 09/03/18 Buspirone HCl [Buspar 10 mg Tablet] 10 mg PO BID 09/14/18 History of Present Illness History of Present Illness: MEG MONTGOMERY is a 73 year old male, Patient is well-known to me he has metastatic lung cancer, pulmonary embolism, chronic obstructive lung disease,He came to the office with his family for evaluation of intractable abdominal pain. He has had multiple emergency room visits for evaluation of multiple complaints he was receiving his cancer treatment locally by Dr. Gamboa but he recently transferred his care to cancer center of the [facility] in [place].He also complains of lower extremity pain, patient is already on pain medication for the control of his cancer pain but it seems that it is no effective, he was supposed to be admitted directly from the office to the hospital but there was no availability of beds so patient was referred to emergency room On the advice of the nursing accounts payable supervisor that assign bed to patient's,to be seen by the ED physician ,was evaluated by the ED physician and it was felt that patient needed to be admitted.The blood work was reviewed the serum creatinine is elevated, this is probably prerenal azotemia from dehydration Hospital Course Hospital Course: Patient with metastatic lung cancer, he was admitted for the management of severe intractable pain due to cancer,He was treated with IV Dilaudid hospital course was complicated with agitation, confusion requiring restraints and sedation with Haldol Physical Exam Vital Signs: Temp Pulse Resp BP Pulse Ox 98.2 F 117 H 16 121/70 100 09/19/18 19:53 09/19/18 20:00 09/19/18 20:00 09/19/18 19:55 09/19/18 19:55 Intake & Output 09/18/18 09/19/18 09/20/18 06:59 06:59 06:59 Intake Total 1025 400 Output Total 500 685 70 Balance 525 -285 -70 Weight 85.9 kg 86.6 kg General appearance: PRESENT: no acute distress Eye exam: PRESENT: PERRLA Respiratory exam: PRESENT: rhonchi Cardiovascular exam: PRESENT: +S1, +S2 GI/Abdominal exam: PRESENT: soft Neurological exam: PRESENT: alert Results Laboratory Results: 09/17/18 03:45 09/17/18 03:45 Qualifiers - * PATIENT BEING DISCHARGED WITH ANY OF THE FOLLOWING DIAGNOSIS: No
[2018-09-19] MEDS: ATENOLOL 50 MG TABLET PO SCH (21:43)
[2018-09-19] MEDS: ATORVASTATIN CALCIUM 40 MG TABLET PO SCH (21:44)
[2018-09-20] MEDS: HALOPERIDOL LACTATE INJ 5 MG/1 ML VIAL IV PRN (00:55)
[2018-09-20] MEDS: HYDROMORPHONE HCL INJ/PF 2 MG/ML AMPULE IV PRN ×3 (03:50→13:40)
[2018-09-20] MEDS: BUSPIRONE HCL 10 MG TABLET PO SCH ×2 (10:42→13:40)
[2018-09-20] MEDS: CHOLECALCIFEROL (D3) 1,000 UNIT TABLET PO SCH (10:42)
[2018-09-20] MEDS: DILTIAZEM HCL 120 MG CAP.SR.24H PO SCH (10:43)
[2018-09-20] MEDS: APIXABAN 5 MG TABLET PO SCH (10:43)
[2018-09-20] MEDS: ASCORBIC ACID 500 MG TABLET PO SCH ×2 (10:50→13:40)
[2018-09-20] MEDS: LANSOPRAZOLE 15 MG TAB.RAP.DR PO SCH (10:50)
[2018-09-20] MEDS: VALSARTAN 160 MG TABLET PO SCH (10:50)
[2018-09-20 11:44] VITALS: BP 112/57
== END 2018-09-20 14:29 | disposition home or self-care (01) | DRG 948 ==
LOC: ER 10:28 → EH 12:06 → 5 17:24 → ICU 09-17 10:09 → 4S 09-19 22:21
PROVIDERS: ADMIT Internal Medicine; ATTEND Internal Medicine
DX: G89.3 Neoplasm related pain (acute) (chronic) (principal); C34.90 Malignant neoplasm of unspecified part of unspecified bronchus or lung; C79.9 Secondary malignant neoplasm of unspecified site; N17.9 Acute kidney failure, unspecified; G93.40 Encephalopathy, unspecified; R45.1 Restlessness and agitation; Z78.1 Physical restraint status; I11.0 Hypertensive heart disease with heart failure; I50.9 Heart failure, unspecified; Z86.711 Personal history of pulmonary embolism; K21.9 Gastro-esophageal reflux disease without esophagitis; K44.9 Diaphragmatic hernia without obstruction or gangrene; Z90.49 Acquired absence of other specified parts of digestive tract; Z66 Do not resuscitate
CPT/HCPCS: 36415; 80048; 80053; 82803; 85025; 87070; 87205; 93005; 93010; 94640; 96374; 96375; 99285; J1170; J1630; J2060; J2405; J3490; J7030; J7620

== ENCOUNTER 2018-09-21 10:34 | Emergency (ER) | payer MEDICARE, BC ==
[2018-09-21 11:17] LABS: ABSOLUTE BASOPHILS # (AUTO) 0.1 10^3/uL (0.0-0.2); ABSOLUTE LYMPHOCYTES (AUTO) 0.6 10^3/uL (0.5-4.7); ABSOLUTE NEUT (AUTO) 9.9 10^3/uL (1.7-8.2); EOSINOPHILS % (AUTO) 0.3 % (0-6); HEMATOCRIT 29.1 % (37.9-51.0); LYMPHOCYTES % (AUTO) 5.3 % (13-45); MEAN CORPUSCULAR HEMOGLOBIN 28.7 pg (27.0-33.4); MEAN CORPUSCULAR VOLUME 92 fl (80-97); MONOCYTES % (AUTO) 8.5 % (3-13); RED BLOOD COUNT 3.14 10^6/uL (4.35-5.55); RED CELL DISTRIBUTION WIDTH 17.8 % (11.5-14.0); SEGMENTED NEUTROPHILS % (AUTO) 84.9 % (42-78); TOTAL CELLS COUNTED % (AUTO) 100 %; WHITE BLOOD COUNT 11.7 10^3/uL (4.0-10.5)
--- NOTE | 2018-09-21 11:18 | RADIOLOGY REPORT (SQ) ---
EXAM DESCRIPTION: CHEST SINGLE VIEW COMPLETED DATE/TIME: 09/21/2018 11:06 am REASON FOR STUDY: Difficulty breathing, history of lung cancer, hypo COMPARISON: 08/27/2018 EXAM PARAMETERS: NUMBER OF VIEWS: One view. TECHNIQUE: Single frontal radiographic view of the chest acquired. RADIATION DOSE: NA LIMITATIONS: None. FINDINGS: LUNGS AND PLEURA: Increased patchy bibasilar opacities with mild increased small right ple ural effusion. Chronic additional interstitial changes and right hilar opacity. No pneumothorax. MEDIASTINUM AND HILAR STRUCTURES: Stable chronic right hilar changes. HEART AND VASCULAR STRUCTURES: Stable heart size. Atherosclerotic aorta. BONES: No acute bony abnormality. HARDWARE: None in the chest. OTHER: No other significant finding. IMPRESSION: Mildly increased patchy bibasilar opacities possibly superimposed pneumonia. Small righ t pleural effusion. TECHNICAL DOCUMENTATION: JOB ID: [id number] [employer]- All Rights Reserved Reading location - IP/workstation name: [email or web address]
[2018-09-21 11:22] LABS: ALANINE AMINOTRANSFERASE 18 U/L (21-72); ALBUMIN 4.1 g/dL (3.5-5.0); ALKALINE PHOSPHATASE 252 U/L (38-126); ANION GAP 10 (5-19); ASPARTATE AMINO TRANSFERASE 47 U/L (17-59); BILIRUBIN,DIRECT 0.4 mg/dL (0.0-0.4); BLOOD UREA NITROGEN 25 mg/dL (7-20); CALCIUM 10.1 mg/dL (8.4-10.2); CARBON DIOXIDE 26 mmol/L (22-30); CHLORIDE 109 mmol/L (98-107); GLUCOSE 124 mg/dL (75-110); POTASSIUM 5.6 mmol/L (3.6-5.0); SODIUM 145.4 mmol/L (137-145); TOTAL PROTEIN 7.2 g/dL (6.3-8.2)
[2018-09-21 11:38] LABS: TROPONIN I 0.182 ng/mL
[2018-09-21 11:39] LABS: PLATELET COUNT 82 10^3/uL (150-450)
[2018-09-21] MEDS ORDERED: LIDOCAINE 1% INJ-PF (10 MG/ML) 30 ML SDV INJ ONE (12:50)
[2018-09-21] MEDS ORDERED: CEFTRIAXONE INJ 1000 MG VIAL IM ONE (12:50)
[2018-09-21] MEDS ORDERED: AZITHROMYCIN 250 MG TABLET PO ONE (12:51)
--- NOTE | 2018-09-21 12:52 | ER Document Report ---
ED General - General Chief Complaint: Shortness Of Breath Stated Complaint: DIFFICULTY BREATHING Time Seen by Provider: 09/21/18 10:47 Notes: Patient was brought in by EMS for shortness of breath this morning. Patient has a history of stage IV lung cancer. His initial treatment was here for one chemotherapy and then he has been followed since then at cancer treatment center in [place]. He gets chemo every 3 weeks, but missed this past week because he was sick in the hospital here for GI problem. He is on home O2 and has been on 3 L but it was recently increased to 4-1/2 L. Patient apparently became frustrated this afternoon and took off his oxygen and did not want to put it back on. When he was in the hospital here last week, he was discharged on Ativan for anxiety, which the patient experiences. His thinks that is causing him problems. I advised her that he can stop taking it if she felt that way and although it is an excellent medication for anxiety. Both the and patient say the patient is now back to his normal state and feels fine and does not feel sick in any way. He has not had any significant increase in cough or chest congestion or shortness of breath. Has not had any fever. TRAVEL OUTSIDE OF THE [place] IN LAST 30 DAYS: No - Related Data Allergies/Adverse Reactions: lorazepam [From Ativan] Adverse Reaction (Severe, Verified 09/21/18 11:22) Past Medical History - Social History Smoking Status: Former Smoker Frequency of alcohol use: None Drug Abuse: None Family History: None, Reviewed & Not Pertinent, Hypertension, Malignancy Patient has suicidal ideation: No Patient has homicidal ideation: No - Past Medical History Cardiac Medical History: Reports: Hx Atrial Fibrillation, Hx Congestive Heart Failure, Hx Heart Attack, Hx Hypercholesterolemia, Hx Hypertension, Hx Pulmonary Embolism Denies: Hx Coronary Artery Disease Pulmonary Medical History: Reports: Hx COPD Malignancy Medical History: Reports Hx Lung Cancer GI Medical History: Reports: Hx Gastroesophageal Reflux Disease, Hx Hiatal Hernia Past Surgical History: Reports: Hx Cholecystectomy - Lung surgery and gastric surgery, Other - Immunizations Hx Diphtheria, Pertussis, Tetanus Vaccination: Yes Hx Pneumococcal Vaccination: 06/13/14 Review of Systems - Review of Systems Notes: REVIEW OF SYSTEMS: CONSTITUTIONAL : Denies fever. EENT: Denies eye, ear, nose or mouth or throat pain or other symptoms. CARDIOVASCULAR: Denies chest pain. No significant peripheral edema. RESPIRATORY: Denies cough, chest congestion, but does have shortness of breath on home O2. GASTROINTESTINAL: Denies abdominal pain or nausea, vomiting, or diarrhea. GENITOURINARY: Denies difficulty or painful urinating, urinary frequency, blood in urine. MUSCULOSKELETAL: Denies back or neck pain. Denies joint pain or swelling. SKIN: Denies rash or skin lesions. NEUROLOGICAL: Denies LOC or altered mental status. Denies headache. Denies sensory loss or motor deficits. ALL OTHER SYSTEMS REVIEWED AND NEGATIVE. Physical Exam - Vital signs Vitals: Temp 97.7 F 09/21/18 10:40 Interpretation: Normal, Hypoxic - Hypoxia if not on O2. Notes: PHYSICAL EXAMINATION: GENERAL: Well-appearing, in no acute distress. Does not want to talk initially but later became more comfortable and answers questions appropriately. Has no complaints at this time. HEAD: Atraumatic, normocephalic. EYES: Pupils equal round and reactive to light, extraocular movements intact. ENT: oropharynx clear without exudates. Moist mucous membranes. NECK: Normal range of motion, supple. LUNGS: Breath sounds with a few rhonchi on the right side. No significant wheezing. HEART: Regular rate and rhythm without murmurs. ABDOMEN: Soft, nontender. No guarding or rebound. No masses. BACK: No tenderness throughout entire back. EXTREMITIES: Normal range of motion without pain. No peripheral edema. NEUROLOGICAL: Normal speech, normal gait. Normal sensory, motor, and reflex exams. Awake, alert, and oriented x3. Cranial nerves normal. PSYCH: Normal mood, normal affect. SKIN: Warm, dry, no rashes. Course - Re-evaluation Re-evalutation: 09/21/18 19:13 Patient remained stable throughout his stay in the department. His O2 saturations stayed in the 90s on just a couple of liters of oxygen. He and his both agree that he is back to his normal state and does not wish to stay any longer and wants to go home. - Vital Signs Vital signs: Temp Pulse Resp BP Pulse Ox 97.8 F 25 H 115/63 93 09/21/18 13:01 09/21/18 13:01 09/21/18 13:01 09/21/18 13:01 - Laboratory Result Diagrams: 09/21/18 10:45 09/21/18 10:45 Laboratory results interpreted by me: 09/21/18 09/21/18 09/21/18 10:45 10:45 10:45 WBC 11.7 H RBC 3.14 L Hgb 9.0 L Hct 29.1 L MCHC 31.0 L RDW 17.8 H Plt Count 82 L Seg Neutrophils % 84.9 H Lymphocytes % 5.3 L Absolute Neutrophils 9.9 H Sodium 145.4 H Potassium 5.6 H Chloride 109 H BUN 25 H Creatinine 1.62 H Est GFR ( Amer) 51 L Est GFR (Non-Af Amer) 42 L Glucose 124 H ALT 18 L Alkaline Phosphatase 252 H NT-Pro-B Natriuret Pep 5570 H - Diagnostic Test Radiology results interpreted by me: 09/21/18 19:11 Chest x-ray shows mildly increased patchy bibasilar opacities possibly superimposed pneumonia. Small right pleural effusion. - EKG Interpretation by Me EKG shows normal: Sinus rhythm Rate: Normal Rhythm: NSR [place]/QRS: RBBB Discharge - Discharge Clinical Impression: Lung cancer, Pneumonia, Hypoxia Condition: Stable Disposition: HOME, SELF-CARE Additional Instructions: PNEUMONIA: Your examination indicates that you have pneumonia. This is an infection of the lung tissue, usually caused by bacteria or a virus. Symptoms include cough, fever, shaking chills, chest pain, shortness of breath, and coughing up bloody sputum. Treatment for bacterial pneumonia includes rest, antibiotics for 10 to 14 days, increasing your clear liquid intake, a cool mist humidifier at your bedside, and fever medication. Often, a repeat chest X-ray is performed in a few weeks--even if you feel better--to ascertain whether the infection has completely resolved and no underlying lung problem is present. You should call the physician if you develop persistent vomiting, high fever that does not respond to fever medication, increasing shortness of breath, confusion, or lethargy. Also, failure to improve within two to three days is an indication for re-examination. ANTIBIOTIC INJECTION: You have been given an antibiotic injection. Sometimes the injection must be combined with antibiotic pills. For some infections, the shot provides all the antibiotic that's needed. Common side effects of antibiotics include nausea, intestinal cramping, or diarrhea. These are very unusual following a shot. Women may develop vaginal yeast infections, and babies can get yeast (thrush) in the mouth following the use of antibiotics. Contact your physician if you develop significant side effects from this medication. Allergy to this antibiotic can result in hives, wheezing, faintness, or itching. If symptoms of allergy occur, call the doctor at once. ROCEPHIN: You have been given an injection of an antibiotic called Rocephin (ceftriaxone). Sometimes the injection must be combined with antibiotic pills. For some infections, such as an uncomplicated ear infection, Rocephin provides all the antibiotic that's needed. The antibiotic will be in your body for about two days. For serious infections, we usually repeat doses of Rocephin daily. Side effects are very unusual following a shot. Women may develop vaginal yeast infections, and babies can get yeast (thrush) in the mouth following the use of antibiotics. Contact your physician if you have symptoms with this medication. Allergy to this antibiotic can result in hives, wheezing, faintness, or itching. If symptoms of allergy occur, call the doctor at once. ANTIBIOTIC THERAPY: You have been given an antibiotic prescription. It's important that you take all the medication, unless instructed otherwise by your physician. Failure to complete the entire course can result in relapse of your condition. Common side effects of antibiotics include nausea, intestinal cramping, or diarrhea. Women may develop vaginal yeast infections, and babies can get yeast (thrush) in the mouth following the use of antibiotics. Contact your physician if you develop significant side effects from this medication. Allergy to this antibiotic can result in hives, wheezing, faintness, or itching. If symptoms of allergy occur, stop the medication and call the doctor. AZITHROMYCIN: Azithromycin (Zithromax) is a broad spectrum antibiotic in the same class as erythromycin. It can treat a variety of bacterial infections, but is most frequently used for respiratory infections. Azithromycin is extremely long-lasting. It accumulates in body tissues and continues to kill bacteria for many days. In order to improve absorption, Azithromycin should be taken at least one hour before or two hours after a meal. It does not have the same strong tendency to upset the stomach as erythromycin and is usually very well tolerated. Patients who have had a rash or other true allergic reactions to e rythromycin should not take this medication. Call if you develop gastrointestinal distress, severe diarrhea, rash, hives, itching, or shortness of breath. FOLLOW-UP CARE: If you have been referred to a physician for follow-up care, call the physicians office for an appointment as you were instructed or within the next two days. If you experience worsening or a significant change in your symptoms, notify the physician immediately or return to the Emergency Department at any time for re-evaluation. Use your oxygen at home as previously. Take the prescribed antibiotic. [facility] with [facility] [place]. Prescriptions: Azithromycin [Zithromax 250 mg Tablet] 250 mg PO ASDIR PRN #6 tablet PRN Reason: Referrals: SADIE MCCRAY MD [Primary Care Provider] - Follow up as needed
[2018-09-21 13:52] VITALS: BP 115/63
--- NOTE | 2018-09-21 18:32 | EKG REPORT ---
SEVERITY:- ABNORMAL ECG - SINUS RHYTHM RBBB AND LAFB : Confirmed by: Serafin Araujo MD 21-Sep-2018 18:31:52
== END 2018-09-21 13:53 | disposition home or self-care (01) ==
LOC: ER 10:34
DX: J18.9 Pneumonia, unspecified organism (principal); J44.0 Chronic obstructive pulmonary disease with (acute) lower respiratory infection; C34.90 Malignant neoplasm of unspecified part of unspecified bronchus or lung; J90 Pleural effusion, not elsewhere classified; I45.10 Unspecified right bundle-branch block; R09.02 Hypoxemia; R06.02 Shortness of breath; Z99.81 Dependence on supplemental oxygen; F41.9 Anxiety disorder, unspecified; Z79.899 Other long term (current) drug therapy; I10 Essential (primary) hypertension; Z87.891 Personal history of nicotine dependence
CPT/HCPCS: 93005; 99285; 96372; 36415; 87040; 85025; 80053; 84484; 83880; 71045; 93010; A9270; J3490; J0696

== ENCOUNTER 2018-09-21 21:17 | Emergency (ER) | payer MEDICARE, BC ==
[2018-09-21] MEDS ORDERED: METHYLPREDNISOLONE INJ 125 MG/2 ML SDV IV ONE (21:22)
[2018-09-21] MEDS ORDERED: IPRATROPIUM/ALBUTEROL 0.5-2.5 MG/3 ML AMPUL NEB ONE (21:22)
[2018-09-21] MEDS ORDERED: ALBUTEROL SULFATE 0.083% NEB 2.5 MG/3 ML AMPUL NEB SCH (21:37)
--- NOTE | 2018-09-21 21:51 | ER Document Report ---
ED Respiratory Problem - General TRAVEL OUTSIDE OF THE [place] IN LAST 30 DAYS: No <DULCE SAUCEDO - Last Filed: 09/22/18 03:55> <MARE NICOLAS - Last Filed: 09/24/18 08:33> - General Chief Complaint: Near Syncope Stated Complaint: DIFFICULTY BREATHING Time Seen by Provider: 09/21/18 21:38 Notes: Patient is a 73-year-old male that comes to the emergency department for chief complaint of difficulty breathing and tightness in his chest. He was reportedly found to be 75% on room air, he normally wears 4 L nasal cannula of oxygen but he was not wearing it on arrival by EMS. He was found to be wheezing and tachypneic. He was given a DuoNeb treatment and 100 mL's of normal saline. Patient was seen earlier today, diagnosed with pneumonia, discharged on azithromycin. He was admitted to the hospital 1 week ago. Patient has multiple comorbidities including stage IV lung cancer, he has had partial pneumonectomy of the right lung, he has a history of A. fib on Eliquis. Also has a history of hypertension, hyperlipidemia, and congestive heart failure. (DULCE SAUCEDO) - Related Data Allergies/Adverse Reactions: lorazepam [From Ativan] Adverse Reaction (Severe, Verified 09/21/18 11:22) Past Medical History - General Information source: Patient, Emergency Med Personnel - Social History Smoking Status: Former Smoker Drug Abuse: None Lives with: Family Family History: None, Reviewed & Not Pertinent, Hypertension, Malignancy Patient has suicidal ideation: No Patient has homicidal ideation: No - Past Medical History Cardiac Medical History: Reports: Hx Atrial Fibrillation, Hx Congestive Heart Failure, Hx Heart Attack, Hx Hypercholesterolemia, Hx Hypertension, Hx Pulmonary Embolism Denies: Hx Coronary Artery Disease Pulmonary Medical History: Reports: Hx COPD Denies: Hx Asthma, Hx Bronchitis, Hx Pneumonia Neurological Medical History: Denies: Hx Cerebrovascular Accident, Hx Seizures Renal/ Medical History: Denies: Hx Peritoneal Dialysis Malignancy Medical History: Reports Hx Lung Cancer GI Medical History: Reports: Hx Gastroesophageal Reflux Disease, Hx Hiatal Hernia. Denies: Hx Crohn's Disease, Hx Ulcerative Colitis Musculoskeletal Medical History: Denies Hx Arthritis Skin Medical History: Denies Hx Psoriasis Psychiatric Medical History: Denies: Hx Depression Traumatic Medical History: Denies: Hx Gunshot Wound, Hx Pneumothorax Past Surgical History: Reports: Hx Cholecystectomy, Other - Immunizations Hx Diphtheria, Pertussis, Tetanus Vaccination: Yes Hx Pneumococcal Vaccination: 06/13/14 <DULCE SAUCEDO - Last Filed: 09/22/18 03:55> Review of Systems - Review of Systems Constitutional: No symptoms reported EENT: No symptoms reported Cardiovascular: See HPI Respiratory: See HPI Gastrointestinal: No symptoms reported Genitourinary: No symptoms reported Male Genitourinary: No symptoms reported Musculoskeletal: No symptoms reported Skin: No symptoms reported Hematologic/Lymphatic: No symptoms reported Neurological/Psychological: No symptoms reported <DULCE SAUCEDO - Last Filed: 09/22/18 03:55> Physical Exam <DULCE SAUCEDO - Last Filed: 09/22/18 03:55> - Vital signs Vitals: Resp 13 09/21/18 21:24 - Notes Notes: GENERAL: Alert, no distress, somewhat chronically ill-appearing. HEAD: Normocephalic, atraumatic. EYES: Pupils equal, round, and reactive to light. Extraocular movements intact. ENT: Oral mucosa dry, tongue midline. Oropharynx unremarkable. Airway patent. Nares patent, no nasal septal hematoma, TM's intact. NECK: Full range of motion. Supple. Trachea midline. LUNGS: Decreased breath sounds bilaterally, occasional congested cough, borderline tachypnea, no overt wheezes, rhonchi, or rales. HEART: Regular rate with occasional extrasystole. No loud murmur. ABDOMEN: Soft, non-tender. Non-distended. Bowel sounds present in all 4 quadrants. GENITOURINARY: No concerning abnormality noted. EXTREMITIES: Moves all 4 extremities spontaneously. No edema, normal radial and dorsalis pedis pulses bilaterally. No cyanosis. BACK: no cervical, thoracic, lumbar midline tenderness. No saddle anesthesia, normal distal neurovascular exam. NEUROLOGICAL: Alert and oriented to person and place, has difficulty telling me about events. Normal speech. [cranial nerves II through XII grossly intact]. PSYCH: Normal affect, normal mood. SKIN: Warm, dry, normal turgor. No rashes or lesions noted. (DULCE SAUCEDO) Course - Laboratory Result Diagrams: 09/21/18 21:42 09/21/18 21:42 <DULCE SAUCEDO - Last Filed: 09/22/18 03:55> - Laboratory Result Diagrams: 09/21/18 21:42 09/21/18 21:42 <MARE NICOLAS - Last Filed: 09/24/18 08:33> - Re-evaluation Re-evalutation: Patient's family came to bedside. I spoke with . states that at home patient became very weak and dizzy, she states that he had to be caught and eased to the ground as he fell. He did not hit his head. No injuries reported. Patient denies any pain from the fall. She states he is not breathing as well as usual and he is more weak than usual. On his normal home oxygen at bedside patient's pulse oxygen saturation is normal. His heart rate is in the 90s. Blood pressure initially in the 90s systolic but this improved to 130s systolic on repeat after small amount of fluids infused. He does not have a fever. Chest x-ray does not show any concerning findings. Chest x-ray earlier today reading possible pneumonia. His white blood cell count is trending up. His troponin is trending down. Initiated treatment for hospital-acquired pneumonia with his recent admission to the hospital 7 days ago. For me patient seems intermittently confused, I asked about this, she stat es this is not brand-new and has been going on intermittently. 09/21/18 23:45 On monitoring patient was noted to have an episode where he first became bradycardic, then severely bradycardic, and then he had an 8-second pause. Patient did pass out but quickly regained consciousness, his heart rate then returned into the 70s with a sinus rhythm. He is now responsive and alert. I suspect this is his second episode of this today with his syncopal episode at home. He does have hyperkalemia which is moderate at 5.7, he was treated for this with calcium gluconate, insulin, dextrose. Updated Dr. Nicolas. I spoke at length with patient and , they state that they would like for all options to be pursued including a possible pacemaker placement. Discussed different locations for this, they requested [place]. Patient has pacer pads in place. 09/21/18 23:55 I called and spoke with Dr. Kurtz, D[facility] Person at [facility], patient is accepted for transfer. Patient has been reevaluated several times at bedside. He had one episode of bradycardia 33 that I saw but this was instantaneously improved and he has not had anything since. He has not needed pacing, he has not become hypotensive. 09/22/18 01:45 Transfer flight team is here. Gave report and I reevaluated the patient at bedside. No significant change. Patient is ready to leave. No change in heart rate, oxygen, blood pressure. Stable for transport. (DULCE SAUCEDO) - Vital Signs Vital signs: Temp Pulse Resp BP Pulse Ox 98.4 F 88 26 H 123/60 90 L 09/22/18 01:32 09/21/18 23:57 09/22/18 01:30 09/22/18 01:30 09/22/18 01:30 - Laboratory Laboratory results interpreted by me: 09/21/18 09/21/18 09/21/18 21:42 21:42 21:42 WBC 13.0 H RBC 2.94 L Hgb 8.5 L Hct 27.2 L MCHC 31.4 L RDW 18.0 H Plt Count 76 L Seg Neutrophils % 84.4 H Lymphocytes % 7.4 L Absolute Neutrophils 10.9 H VBG pH Potassium 5.7 H Chloride 110 H BUN 28 H Creatinine 1.67 H Est GFR ( Amer) 49 L Est GFR (Non-Af Amer) 41 L Glucose 116 H POC Glucose Lactic Acid 2.5 H Alkaline Phosphatase 238 H 09/21/18 09/22/18 21:42 01:55 WBC RBC Hgb Hct MCHC RDW Plt Count Seg Neutrophils % Lymphocytes % Absolute Neutrophils VBG pH 7.29 L Potassium Chloride BUN Creatinine Est GFR ( Amer) Est GFR (Non-Af Amer) Glucose POC Glucose 130 H Lactic Acid Alkaline Phosphatase - EKG Interpretation by Me Additional EKG results interpreted by me: EKG results interpreted by me show sinus rhythm at a rate of 80, right bundle branch block, borderline axis deviation. No T wave inversions or ST segment depressions in consecutive leads. Questionably slightly peaked T waves. No significant change from earlier today. (DULCE SAUCEDO) Critical Care Note - Critical Care Note Total time excluding time spent on procedures (mins): 40 - Sinus pause, syncope, hyperkalemia, pneumonia <DULCE SAUCEDO - Last Filed: 09/22/18 03:55> - Critical Care Note Comments: Please allow 40 minutes of critical care time for evaluation and management including treatment of suspected pneumonia and hyperkalemia, multiple re- evaluations because of episode of asystole, time spent interpreting current and previous data, time spent in discussion of options with patient and family, time spent in arranging transport to tertiary ICU. (DULCE SAUCEDO) Discharge <DULCE SAUCEDO - Last Filed: 09/22/18 03:55> <MARE NICOLAS - Last Filed: 09/24/18 08:33> - Discharge Clinical Impression: Asystole by electrocardiography, Bradycardia, Hyperkalemia, Shortness of breath Syncopal episodes Qualifiers: Syncope type: unspecified Qualified Code(s): R55 - Syncope and collapse Disposition: [facility] Referrals: SADIE MCCRAY MD [Primary Care Provider] - Follow up as needed [facility] for MLP Consult
[2018-09-21] MEDS ORDERED: VANCOMYCIN HCL INJ 1000 MG VIAL IV ONE (21:53)
[2018-09-21] MEDS ORDERED: CEFEPIME 2 GM/D5W RTU 2 GM/50 ML RTUPB IV ONE (21:53)
[2018-09-21 22:02] LABS: ABSOLUTE BASOPHILS # (AUTO) 0.1 10^3/uL (0.0-0.2); ABSOLUTE MONOCYTES (AUTO) 0.9 10^3/uL (0.1-1.4); ABSOLUTE NEUT (AUTO) 10.9 10^3/uL (1.7-8.2); BASOPHILS % (AUTO) 0.9 % (0-2); EOSINOPHILS % (AUTO) 0.2 % (0-6); HEMATOCRIT 27.2 % (37.9-51.0); HEMOGLOBIN 8.5 g/dL (13.5-17.0); LYMPHOCYTES % (AUTO) 7.4 % (13-45); MEAN CORPUSCULAR HGB CONC 31.4 g/dL (32.0-36.0); MEAN CORPUSCULAR VOLUME 92 fl (80-97); MONOCYTES % (AUTO) 7.1 % (3-13); RED BLOOD COUNT 2.94 10^6/uL (4.35-5.55); SEGMENTED NEUTROPHILS % (AUTO) 84.4 % (42-78); TOTAL CELLS COUNTED % (AUTO) 100 %
[2018-09-21 22:03] LABS: PLATELET COUNT 76 10^3/uL (150-450)
--- NOTE | 2018-09-21 22:15 | RADIOLOGY REPORT (SQ) ---
EXAM DESCRIPTION: XR CHEST 1 VIEW COMPLETED DATE/TME: 09/21/2018 at 10:01 PM. CLINICAL HISTORY: 73 years, Male, weakness Compared to 09/21/2018 at 11:01 AM. And 08/27/2018. Findings: Heart is mildly enlarged. Aorta is within normal limits. No consolidation or pleural effusion. No pulmonary edema or pneumothorax. Right perihilar scarring changes. IMPRESSION: Right perihilar scarring changes, stable. No acute disease.
[2018-09-21 22:16] LABS: ALANINE AMINOTRANSFERASE 21 U/L (21-72); ALBUMIN 3.7 g/dL (3.5-5.0); ALKALINE PHOSPHATASE 238 U/L (38-126); ANION GAP 6 (5-19); ASPARTATE AMINO TRANSFERASE 43 U/L (17-59); BILIRUBIN,DIRECT 0.4 mg/dL (0.0-0.4); BLOOD UREA NITROGEN 28 mg/dL (7-20); CALCIUM 9.6 mg/dL (8.4-10.2); CARBON DIOXIDE 28 mmol/L (22-30); CHLORIDE 110 mmol/L (98-107); GLUCOSE 116 mg/dL (75-110); POTASSIUM 5.7 mmol/L (3.6-5.0); TOTAL PROTEIN 6.7 g/dL (6.3-8.2)
[2018-09-21] MEDS ORDERED: DEXTROSE 50%-WATER 25 GM/50 ML DISP.SYRIN IV ONE (23:38)
[2018-09-21] MEDS ORDERED: CALCIUM GLUCONATE 1000 MG/10 ML INJ IV ONE ×2 (23:38)
[2018-09-21] MEDS ORDERED: INSULIN REG, HUMAN 100 UNIT/ML 3 ML VIAL (PYX) IV ONE (23:38)
[2018-09-21] MEDS ORDERED: ATROPINE SULFATE INJ 1 MG/1 ML VIAL ONE (23:50)
[2018-09-22 00:07] LABS: VENOUS BLOOD BASE EXCESS 0.1 mmol/L; VENOUS BLOOD HCO3 27.1 mmol/L (20-32); VENOUS BLOOD PCO2 57.4 mmHg (35-63); VENOUS BLOOD PH 7.29 (7.30-7.42)
[2018-09-22 01:37] VITALS: BP 123/60
[2018-09-22] MEDS ORDERED: IPRATROPIUM/ALBUTEROL 0.5-2.5 MG/3 ML AMPUL NEB ONE (01:42)
--- NOTE | 2018-09-22 02:30 | RADIOLOGY REPORT (SQ) ---
CLINICAL DATA: 73-year-old male with pain in left leg and history of clots. TECHNICAL DATA: Left lower extremity color duplex evaluation of the deep venous system performed on 09/21/2018 at 10:04 PM. COMPARISONS: Left lower extremity venous Doppler performed on 09/26/2016. FINDINGS: Grayscale and color Doppler images of the deep veins of the left lower extremity was performed. The grayscale images reveal normal compressibility of the deep veins. The Doppler images reveal normal flow, phasicity with respiration and normal augmentation with compression. The color flow images reveal normal saturation of flow within the deep veins of the left lower extremity. No intraluminal echoes are identified to suggest nonocclusive thrombus. The superficial veins are patent. No additional abnormalities are identified. A cursory evaluation of the right common femoral vein reveals patency and normal compressibility. IMPRESSION: No evidence of deep venous thrombosis in the left lower extremity.
--- NOTE | 2018-09-22 07:37 | EKG REPORT ---
SEVERITY:- ABNORMAL ECG - SINUS RHYTHM LEFT ATRIAL ABNORMALITY RBBB AND LAFB : Confirmed by: Serafin Araujo MD 22-Sep-2018 07:36:37
== END 2018-09-22 02:00 | disposition short-term general hospital (02) ==
LOC: ER 21:17
DX: I46.9 Cardiac arrest, cause unspecified (principal); E87.6 Hypokalemia; R55 Syncope and collapse; I10 Essential (primary) hypertension; J44.0 Chronic obstructive pulmonary disease with (acute) lower respiratory infection; J18.9 Pneumonia, unspecified organism; C34.90 Malignant neoplasm of unspecified part of unspecified bronchus or lung; I48.91 Unspecified atrial fibrillation; Z79.01 Long term (current) use of anticoagulants; Z90.2 Acquired absence of lung [part of]; R06.02 Shortness of breath; R07.89 Other chest pain; R53.1 Weakness; Z99.81 Dependence on supplemental oxygen
CPT/HCPCS: 93005; 99285; 96372; 36415; 87040; 82962; 85025; 80053; 84484; 82803; 83605; 83880; 93971; 71045; 93010; J0610; A9270 ×3; J3490 ×2; J2930; J0696; J3370; J0692; J1815; J7620